=== PATIENT | male | born 1940 | race American Indian/Alaskan Native ===

== ENCOUNTER 2018-10-08 20:01 | Inpatient (IN) | payer MEDICARE ==
--- NOTE | 2018-10-08 20:21 | Emergency Department Report ---
Chief Complaint: Abdominal Pain Stated Complaint: ABDOMINAL PAIN, DIFFICULTY IN BREATHING Time Seen by Provider: 10/08/18 20:17 - HPI History of Present Illness: co abd pain no n/v/d bm this AM was normal daughter reports he seems to have trouble breathing pmh hpld htn dm prev smoker, 5 y ago denies copd/prk/cva/acs psh none rx does not know meds mse MSE screening note: Focused history and physical exam performed. Due to findings the following was ordered: ED Disposition for MSE Condition: Stable
[2018-10-08] MEDS ORDERED: MORPHINE IV ONE (20:59)
[2018-10-08] MEDS ORDERED: NACL 0.9% 250ML 250 ML IV ONE (20:59)
[2018-10-08] MEDS ORDERED: NACL 0.9% 500 ML 500 ML IV ONE (20:59)
[2018-10-08 21:03] LABS: Basophils # (Auto) 0.1 K/mm3 (0.0-0.1); Eosinophils # (Auto) 0.1 K/mm3 (0.0-0.4); Eosinophils % (Auto) 0.6 % (0.0-4.3); Hematocrit 37.5 % (35.5-45.6); Hemoglobin 12.5 gm/dl (11.8-15.2); Lymphocytes # (Auto) 1.8 K/mm3 (1.2-5.4); Lymphocytes % (Auto) 17.1 % (13.4-35.0); Mean Corpuscular HGB Conc 33 % (32-34); Mean Corpuscular Volume 92 fl (84-94); Monocytes # (Auto) 0.8 K/mm3 (0.0-0.8); Monocytes % (Auto) 7.2 % (0.0-7.3); Platelet Count 230 K/mm3 (140-440); Red Blood Count 4.06 M/mm3 (3.65-5.03); Red Cell Distribution Width 14.4 % (13.2-15.2)
[2018-10-08 21:04] LABS: Basophils % (Auto) 0.5 % (0.0-1.8)
--- NOTE | 2018-10-08 21:06 | Emergency Department Report ---
ED Abdominal Pain HPI - General Chief Complaint: Abdominal Pain Stated Complaint: ABDOMINAL PAIN, DIFFICULTY IN BREATHING Time Seen by Provider: 10/08/18 20:17 Source: patient Mode of arrival: Ambulatory Limitations: No Limitations - History of Present Illness Initial Comments: 78-year-old male with history of hypertension, diabetes, COPD, CHF presents to ED with complaint of abdominal discomfort since this morning. Patient denies nausea, vomiting, diarrhea, constipation, fever. Patient has a history of alcoholism, reports intermittently drinks 10-12 beers per day, only had 2-4 today. Patient denies chest pain, shortness of breath, however daughter states patient seems to be having trouble breathing. MD Complaint: abdominal pain -: This morning Location: diffuse Radiation: none Migration to: no migration Severity: moderate Quality: other (unable to characterize) Consistency: constant Improves With: nothing Worsens With: nothing Associated Symptoms: denies: nausea, vomiting, diarrhea, fever, constipation - Related Data Home Medications Medication Instructions Recorded Confirmed Last Taken Pravastatin Sodium [Pravastatin] 10 mg PO QHS 03/29/15 05/01/18 04/29/18 21:00 Previous Rx's Medication Instructions Recorded Last Taken Type ALBUTEROL NEB's [Proventil 0.083% 2.5 mg IH Q4HRT PRN #30 nebu 05/08/18 Unknown Rx NEBS] Acetaminophen [Acetaminophen TAB] 650 mg PO Q4H PRN #20 tablet 05/08/18 Unknown Rx Amlodipine Besylate/Benazepril 1 each PO QDAY #30 05/08/18 04/30/18 08:00 Rx [Lotrel 5-10 mg] Benzonatate [Tessalon Perles] 100 mg PO Q8HR PRN #30 capsule 05/08/18 Unknown Rx Famotidine [Pepcid] 20 mg PO BID #60 tablet 05/08/18 Unknown Rx Furosemide [Lasix TAB] 20 mg PO 0600,1800 #60 tablet 05/08/18 Unknown Rx HYDROcodone/APAP 5-325 [[place] 1 each PO Q6HR PRN #10 tablet 05/08/18 Unknown Rx 5-325 mg TAB] Ipratropium/Albuterol Sulfate 1 ampul IH TIDRT PRN #15 ampul.neb 05/08/18 Unknown Rx [DUONEB *Not for PRN Use*] Metoprolol Xl [Metoprolol 25 mg PO QDAY #30 tablet 05/08/18 Unknown Rx SUCCINATE ER TAB] guaiFENesin ER [Mucinex ER] 600 mg PO BID PRN #30 tablet 05/08/18 Unknown Rx levoFLOXacin [Levaquin] 750 mg PO QDAY #5 tablet 05/08/18 Unknown Rx methylPREDNISolone [Medrol Dose 1 dose PO DAILY #1 pack 05/08/18 Unknown Rx Odin] Allergies Allergy/AdvReac Type Severity Reaction Status Date / Time No Known Allergies Allergy Verified 03/30/15 02:20 ED Review of Systems ROS: Stated complaint: ABDOMINAL PAIN, DIFFICULTY IN BREATHING Other details as noted in HPI Comment: All other systems reviewed and negative Constitutional: denies: chills, fever Respiratory: denies: cough, shortness of breath Cardiovascular: denies: chest pain, palpitations Gastrointestinal: abdominal pain. denies: nausea, vomiting, diarrhea, const ipation ED Past Medical Hx - Past Medical History Previous Medical History?: Yes Hx Hypertension: Yes Hx Diabetes: Yes Hx HIV: No Additional medical history: HIGH CHOLESTEROL - Surgical History Past Surgical History?: No - Social History Smoking Status: Former Smoker Substance Use Type: Alcohol - Medications Home Medications: Home Medications Medication Instructions Recorded Confirmed Last Taken Type Pravastatin Sodium [Pravastatin] 10 mg PO QHS 03/29/15 05/01/18 04/29/18 21:00 History ALBUTEROL NEB's [Proventil 0.083% 2.5 mg IH Q4HRT PRN #30 nebu 05/08/18 Unknown Rx NEBS] Acetaminophen [Acetaminophen TAB] 650 mg PO Q4H PRN #20 tablet 05/08/18 Unknown Rx Amlodipine Besylate/Benazepril 1 each PO QDAY #30 05/08/18 05/01/18 04/30/18 08:00 Rx [Lotrel 5-10 mg] Benzonatate [Tessalon Perles] 100 mg PO Q8HR PRN #30 capsule 05/08/18 Unknown Rx Famotidine [Pepcid] 20 mg PO BID #60 tablet 05/08/18 Unknown Rx Furosemide [Lasix TAB] 20 mg PO 0600,1800 #60 tablet 05/08/18 Unknown Rx HYDROcodone/APAP 5-325 [[place] 1 each PO Q6HR PRN #10 tablet 05/08/18 Unknown Rx 5-325 mg TAB] Ipratropium/Albuterol Sulfate 1 ampul IH TIDRT PRN #15 ampul.neb 05/08/18 Unknown Rx [DUONEB *Not for PRN Use*] Metoprolol Xl [Metoprolol 25 mg PO QDAY #30 tablet 05/08/18 Unknown Rx SUCCINATE ER TAB] guaiFENesin ER [Mucinex ER] 600 mg PO BID PRN #30 tablet 05/08/18 Unknown Rx levoFLOXacin [Levaquin] 750 mg PO QDAY #5 tablet 05/08/18 Unknown Rx methylPREDNISolone [Medrol Dose 1 dose PO DAILY #1 pack 05/08/18 Unknown Rx Od[place]] ED Physical Exam - General Limitations: No Limitations General appearance: alert, in no apparent distress ED Course Vital Signs 10/08/18 10/08/18 10/08/18 20:17 21:16 21:46 Temperature 97.7 F Pulse Rate 148 H 147 H 146 H Respiratory 24 35 H Rate Blood Pressure 155/96 139/94 Blood Pressure 137/94 [Right] O2 Sat by Pulse 90 95 Oximetry 10/08/18 10/09/18 10/09/18 21:52 00:29 00:30 Temperature Pulse Rate 105 H 145 H 145 H Respiratory 21 Rate Blood Pressure 142/94 Blood Pressure 120/57 142/94 [Right] O2 Sat by Pulse 95 Oximetry 10/09/18 10/09/18 10/09/18 01:43 01:45 01:59 Temperature Pulse Rate 147 H 96 H 94 H Respiratory 15 15 Rate Blood Pressure 117/78 Blood Pressure 117/78 117/78 [Right] O2 Sat by Pulse 96 95 Oximetry 10/09/18 02:14 Temperature Pulse Rate 90 Respiratory 19 Rate Blood Pressure Blood Pressure 97/66 [Right] O2 Sat by Pulse 93 Oximetry ED Medical Decision Making - Lab Data Result diagrams: 10/09/18 00:54 10/08/18 20:40 - EKG Data -: EKG Interpreted by Me EKG shows normal: QRS complexes, ST-T waves Rate: tachycardia (rate 148) - EKG Data Interpretation: other (atrial flutter) - Radiology Data Radiology results: report reviewed, image reviewed - Medical Decision Making 78 yo M presents w/ abdominal discomfort, found to have small bilateral PEs, Aflutter/ Afib with RVR, and CHF exacerbation w/ bilateral pleural effusions. Atrial flutter initially improved with diltiazem, w/ rate going from 140s to 110s. Cardizem drip was initiated, however, rate increased again while on drip. Another bolus of cardizem was given, HR improved to the 80s. Pt placed on heparin drip for Afib and PE. Lasix given due to pulmonary edema and effusions. Pt with normal O2 sats on 2L, initially 90% RA. CT was negative for any intraabdominal pathology. Pt admitted to hospitalist for further management. - Differential Diagnosis bowel obstruction, PE, pulm edema Critical Care Time: Yes Critical care time in (mins) excluding proc time.: 45 Critical care attestation.: If time is entered above; I have spent that time in minutes in the direct care of this critically ill patient, excluding procedure time. Critical Care Time: 45 minutes ED Disposition Clinical Impression: CHF (congestive heart failure), Pulmonary edema, Hypoxia, Atrial flutter, Pleural effusion, bilateral, Pulmonary embolism Disposition: -09 OP ADMIT IP TO THIS HOSP Is pt being admited?: Yes Condition: Stable Instructions: Pulmonary Edema (ED) Referrals: HAJA DOMINGUEZ MD [Referring] - 3-5 Days
[2018-10-08] MEDS ORDERED: CARDIZEM IV ONE (21:16)
[2018-10-08 21:17] LABS: Alanine Aminotransferase 43 units/L (7-56); Albumin 4.2 g/dL (3.9-5); BUN/Creatinine Ratio 14; Blood Urea Nitrogen 10 mg/dL (9-20); Calcium 9.3 mg/dL (8.4-10.2); Hemolysis Index 8
--- NOTE | 2018-10-08 21:30 | XRay Report ---
PROCEDURE: XR CHEST ROUTINE 2V TECHNIQUE: PA and lateral chest radiographs were obtained. HISTORY: Chest Pain COMPARISONS: None. FINDINGS: Frontal and lateral views of the chest were acquired and compared to the prior examination of May 03. There is cardiomegaly. There is mild pulmonary edema which is worse. There is some left lower lobe pu lmonary consolidation best seen on lateral view, suspicious for pneumonia. IMPRESSION: Mild pulmonary edema, worse Left lower lobe infiltrate, new, suspicious for pneumonia This document is electronically signed by Ender Nielsen MD., Oct 08 2018 09:27:58 PM ET
[2018-10-08 21:43] LABS: INR 1.05 (0.87-1.13)
[2018-10-08 21:44] LABS: Partial Thromboplastin Time 34.6 Sec. (24.2-36.6)
[2018-10-08] MEDS ORDERED: NACL 0.9% 1000 ML 1,000 ML ONE (21:56)
[2018-10-08] MEDS ORDERED: LASIX IV ONE (21:59)
[2018-10-08] MEDS ORDERED: CARDIZEM 100 MG in D5W 80 ML IV SCH (23:00)
--- NOTE | 2018-10-09 00:39 | Cat Scan Report ---
PROCEDURE: CT ANGIO CHEST TECHNIQUE: Computerized tomographic angiography of the chest was performed after the IV injection of iodinated nonionic contrast including image processing. The image data was postprocessed using 2-di mensional multiplanar reformatted (MPR) and 3-dimensional (MIP and/or volume rendered) techniques. Au tomated exposure control, adjustment of mA and/or kV according to patient size, or iterative reconstr uction dose optimization techniques were utilized. HISTORY: elevated d-dimer, sob FINDINGS: Contrast-enhanced CT angiography of the chest was performed following intravenous administr ation 100 cc on the These images demonstrate pulmonary embolism within a branch of the left upper lobe pulmonary artery, sagittal image 91, coronal image 120. Second left upper lobe pulmonary embolism is seen , sagittal im age 92, coronal image 144. Left lower lobe nonocclusive pulmonary embolism is present on sagittal image 81. There is a right lower lobe nonocclusive pulmonary embolism, sagittal image 216, coronal image 131. There is no aortic dissection. There is coronary artery calcification. There are large bilateral pleural effusions. There is no laisha cardial effusion. In the upper abdomen, there is fatty infiltration of the liver. IMPRESSION: Small bilateral pulmonary emboli. This document is electronically signed by Ender Nielsen MD., Oct 09 2018 12:37:15 AM ET
[2018-10-09] MEDS ORDERED: HEPARIN 10,000 UNITS/10 ML IV ONE (00:45)
--- NOTE | 2018-10-09 00:58 | Cat Scan Report ---
PROCEDURE: CT ABDOMEN PELVIS W CON TECHNIQUE: Computerized axial tomography of the abdomen and pelvis was performed after the IV inject ion of iodinated nonionic contrast. HISTORY: abd pain COMPARISONS: None . FINDINGS: Lower Lung oakes: Moderate-sized bilateral pleural effusions are present. There is minimal patchy d ensity adjacent to the effusion suggesting a small amount of atelectasis. Upper Abdomen: The liver, gallbladder, adrenal glands, the pancreas and spleen are unremarkable. Kidneys, Ureters and Urinary bladder: Small renal cortical cysts visualized left kidney. The kidneys , ureters and urinary bladder otherwise are unremarkable. Retroperitoneum: Atherosclerotic changes are seen in the abdominal aorta. No aneurysm is visualized. Nonspecific subcentimeter lymph nodes are seen in the retroperitoneum. No pathologically enlarged ly mph nodes are identified. Bowel: There is mild diverticulosis descending colon and sigmoid colon without evidence of diverticu litis. Normal-appearing appendix is seen in the right lower quadrant. No evidence of bowel obstructio n. No ascites or free intraperitoneal gas is visualized Reproductive organs: There is mild nonspecific prostate enlargement. Other: No acute bone abnormalities are identified. IMPRESSION: Mild colonic diverticulosis without evidence of diverticulitis. Mild nonspecific prostate enlargement. Moderate sized bilateral pleural effusions are present. Minimal atelectasis suspected in the lung bas es. This document is electronically signed by Blair Leigh MD., Oct 09 2018 12:56:20 AM ET
[2018-10-09 01:06] LABS: Bilirubin,Urine NEG (Negative); Blood,Urine NEG (Negative); Color,Urine Straw (Yellow); Protein,Urine <15 mg/dL mg/dL (Negative); Urobilinogen,Urine < 2.0 mg/dL (<2.0); WBC,Urine < 1.0 /HPF (0.0-6.0)
[2018-10-09 01:08] LABS: Hematocrit 38.2 % (35.5-45.6); Hemoglobin 12.5 gm/dl (11.8-15.2)
[2018-10-09] MEDS ORDERED: CARDIZEM IV ONE (01:10)
[2018-10-09 01:19] LABS: INR 1.09 (0.87-1.13)
[2018-10-09 01:20] LABS: Partial Thromboplastin Time 32.8 Sec. (24.2-36.6)
[2018-10-09] MEDS ORDERED: ZOFRAN IV PRN (01:46)
[2018-10-09] MEDS ORDERED: SODIUM CHLORIDE FLUSH SYRINGE 10 ML IV PRN (01:46)
[2018-10-09] MEDS: HEPARIN/ 0.45% NACL-25,000 UNIT/500 ML 25,000 UNIT/500 ML BAG IV SCH ×2 (01:52→18:04)
--- NOTE | 2018-10-09 01:52 | History and Physical Report ---
History of Present Illness Date of examination: 10/09/18 History of present illness: 78-year-old man admitted a history of COPD, CHF, hypertension, hyperlipidemia, GERD, diabetes comes to emergency room with complaints of abdominal pain. He stated that his belly has been hurting all over, describes a sharp pain, const ant, intensity 5/10, no radiation, cannot identify exacerbating or relieving factors. Admits to nausea and vomiting, shortness of breath Review of systems Constitutional: no weight loss, chills, fever Ears, eyes, nose, mouth and throat: no nasal congestion, no nasal discharge, no sinus pressure, no vision change, no red eye. Neck: No neck pain or rigidity. Cardiovascular: no palpitations, chest pain Respiratory: no cough Gastrointestinal: no hematochezia Genitourinary : no frequency , no hematuria Musculoskeletal: no joint swelling or muscle ache Integumentary: no rash, no pruritis Neurological: no parathesias, no focal weakness Endocrine: no cold or heat intolerance, no polyuria or polydipsia Hematologic/Lymphatic: no easy bruising, no easy bleeding, no gland swelling Allergic/Immunologic: no urticaria, no angioedema. PAST MEDICAL HISTORY:COPD, CHF, hypertension, hyperlipidemia, GERD PAST SURGICAL HISTORY: None SOCIAL HISTORY: Drinks 10 beers a day, no drugs, tobacco FAMILY HISTORY: Hypertension Medications and Allergies Allergies Allergy/AdvReac Type Severity Reaction Status Date / Time No Known Allergies Allergy Verified 03/30/15 02:20 Home Medications Medication Instructions Recorded Confirmed Last Taken Type Pravastatin Sodium [Pravastatin] 10 mg PO QHS 03/29/15 10/09/18 10/08/18 History 10 mg Amlodipine Besylate/Benazepril 1 each PO QDAY #30 05/08/18 10/09/18 10/08/18 Rx [Lotrel 5-10 mg] Metoprolol Xl [Metoprolol 25 mg PO QDAY #30 tablet 05/08/18 10/09/18 10/08/18 Rx SUCCINATE ER TAB] 25 mg Aspirin [Aspirin BABY CHEW TAB] 81 mg PO QDAY 10/09/18 10/09/18 Unknown History Glimepiride [Amaryl] 4 mg PO DAILY 10/09/18 10/09/18 Unknown History Omeprazole 20 mg PO QDAY 10/09/18 10/09/18 Unknown History Tiotropium [place] [Spiriva 1.25 mcg INHALATION DAILY 10/09/18 10/09/18 Unknown History Respimat] metFORMIN 500 mg PO BID 10/09/18 10/09/18 Unknown History Active Meds: Active Medications Acetaminophen (Tylenol) 650 mg PO Q4H PRN PRN Reason: Pain MILD(1-3)/Fever >100.5/DUCKWORTH Diltiazem HCl 100 mg/ Dextrose 100 mls @ 5 mls/hr IV TITR DEIDRA; Protocol Last Titration: 10/09/18 01:49 Dose: 10 mg/hr, 10 mls/hr Documented by: Heparin Sodium/Sodium Chloride (Heparin/ 0.45% Nacl-25,000 Unit/500 Ml) 25,000 unit in 500 mls @ 30 mls/hr IV TITR DEIDRA; Protocol Ondansetron HCl (Zofran) 4 mg IV Q8H PRN PRN Reason: Nausea And Vomiting Sodium Chloride (Sodium Chloride Flush Syringe 10 Ml) 10 ml IV BID DEIDRA Sodium Chloride (Sodium Chloride Flush Syringe 10 Ml) 10 ml IV PRN PRN PRN Reason: LINE FLUSH Exam - Physical Exam Narrative exam: General Apperance: The patient lying in bed, breathing comfortable HEENT: Normocephalic, atraumatic. Pupils equally round and reactive to light, EOMI, no sclericterus or JVD or thyromegaly or nodule. , no carotid bruit, mucous membranes moist, no exudate or erythema Heart: S1-S2, regular is rhythm Lungs: Clear to auscultation bilaterally, breathing comfortable Abdomen: Positive bowel sounds, soft, nontender, nondistended, no organomegaly Extremities: No edema cyanosis clubbing Skin: no rash, nodule, warm and dry Neuro: cranial nerves 2-12 intact, speech is fluent, motor/sensory intact - Constitutional Vitals: Temp Pulse Resp BP Pulse Ox 97.7 F 96 H 15 117/78 96 10/08/18 20:17 10/09/18 01:45 10/09/18 01:45 10/09/18 01:45 10/09/18 01:45 Results - Labs CBC & Chem 7: 10/16/18 04:51 10/16/18 04:51 Labs: Abnormal lab results 10/08/18 10/08/18 10/08/18 Range/Units 20:40 20:40 21:01 Seg Neutrophils % 74.6 H (40.0-70.0) % Seg Neutrophils # 7.9 H (1.8-7.7) K/mm3 D-Dimer 532.59 H (0-234) ng/mlDDU Sodium 132 L (137-145) mmol/L Chloride 96.5 L (98-107) mmol/L Creatinine 0.7 L (0.8-1.5) mg/dL Glucose 109 H (75-100) mg/dL AST 45 H (5-40) units/L NT-Pro-B Natriuret Pep (0-900) pg/mL 10/08/18 Range/Units 21:01 Seg Neutrophils % (40.0-70.0) % Seg Neutrophils # (1.8-7.7) K/mm3 D-Dimer (0-234) ng/mlDDU Sodium (137-145) mmol/L Chloride (98-107) mmol/L Creatinine (0.8-1.5) mg/dL Glucose (75-100) mg/dL AST (5-40) units/L NT-Pro-B Natriuret Pep 1527 H (0-900) pg/mL - Imaging and Cardiology EKG: image reviewed CT scan - abdomen: report reviewed CT scan - chest: report reviewed CT scan - pelvis: report reviewed Assessment and Plan Assessment A. fib with RVR Bilateral pulmonary emboli CHF, stable Alcohol abuse Abdominal pain, nonspecific COPD Hypertension Hyperlipidemia GERD Plan Admit to medicine Continue Cardizem, heparin drip Check cardiac enzymes, TSH, serial hemoglobin Consult cardiology, critical care Start CIWA protocol with IV ativan
[2018-10-09] MEDS ORDERED: D50W (25GM) Syringe IV PRN (04:38)
[2018-10-09] MEDS ORDERED: HumaLOG SUB-Q SCH (07:30)
[2018-10-09 08:24] LABS: Creatine Kinase MB 10.1 ng/mL (0.0-4.0)
--- NOTE | 2018-10-09 08:49 | Consultation ---
History of Present Illness Consult date: 10/09/18 Consult reason: other (Atrial flutter) History of present illness: Patient is presenting for abdominal pain. On CT abdomen he was incidentally di scovered to have bilateral pulmonary emboli. His presenting rhythm was atrial flutter that has resolved eventually. Patient denies CP, pleuritic pain or shortness of breath. He is known type II DM, hypertension and hyperlipidemia. He has chronic abdominal pain. He was in the hospital back in Apr 2018 for pneumonia per his daughter. Past History Past Medical History: COPD, heart failure, hypertension, hyperlipidemia Past Surgical History: No surgical history Social history: no significant social history Family history: diabetes, hypertension Medications and Allergies Allergies Allergy/AdvReac Type Severity Reaction Status Date / Time No Known Allergies Allergy Verified 03/30/15 02:20 Home Medications Medication Instructions Recorded Confirmed Last Taken Type Pravastatin Sodium [Pravastatin] 10 mg PO QHS 03/29/15 10/09/18 10/08/18 History 10 mg Amlodipine Besylate/Benazepril 1 each PO QDAY #30 05/08/18 10/09/18 10/08/18 Rx [Lotrel 5-10 mg] Metoprolol Xl [Metoprolol 25 mg PO QDAY #30 tablet 05/08/18 10/09/18 10/08/18 Rx SUCCINATE ER TAB] 25 mg Aspirin [Aspirin BABY CHEW TAB] mg PO QDAY 10/09/18 Unknown History Active Meds: Active Medications Acetaminophen (Tylenol) 650 mg PO Q4H PRN PRN Reason: Pain MILD(1-3)/Fever >100.5/DUCKWORTH Dextrose (D50w (25gm) Syringe) 50 ml IV PRN PRN PRN Reason: Hypoglycemia Diltiazem HCl (Cardizem) 60 mg PO Q6HR DEIDRA Heparin Sodium/Sodium Chloride (Heparin/ 0.45% Nacl-25,000 Unit/500 Ml) 25,000 unit in 500 mls @ 30 mls/hr IV TITR DEIDRA; Protocol Last Titration: 10/09/18 08:00 Dose: 1,500 units/hr, 30 mls/hr Documented by: Diltiazem HCl (Cardizem/D5w 100mg/100ml) 100 mg in 100 mls @ 5 mls/hr IV TITR DEIDRA; Protocol Insulin Human Lispro (Humalog) 0 unit SUB-Q ACHS DEIDRA; Protocol Last Admin: 10/09/18 08:22 Dose: Not Given Documented by: Lorazepam (Ativan) 1 mg IV Q1HR PRN PRN Reason: CIWA-Ar 8-15 Ondansetron HCl (Zofran) 4 mg IV Q8H PRN PRN Reason: Nausea And Vomiting Sodium Chloride (Sodium Chloride Flush Syringe 10 Ml) 10 ml IV BID DEIDRA Sodium Chloride (Sodium Chloride Flush Syringe 10 Ml) 10 ml IV PRN PRN PRN Reason: LINE FLUSH Review of Systems All systems: negative Physical Examination Vital Signs Temp Pulse Resp BP Pulse Ox 97.7 F 148 H 24 155/96 90 10/08/18 20:17 10/08/18 20:17 10/08/18 20:17 10/08/18 20:17 10/08/18 20:17 General appearance: no acute distress HEENT: Positive: PERRL Neck: Positive: neck supple Cardiac: Positive: Reg Rate and Rhythm Lungs: Positive: Normal Exam Neuro: Positive: Grossly Intact Abdomen: Positive: Soft Extremities: Present: normal Results 10/09/18 00:54 10/08/18 20:40 Cardiac Enzymes 10/08/18 10/09/18 10/09/18 Range/Units 20:40 02:12 07:47 AST 45 H (5-40) units/L CK-MB (CK-2) 12.0 H 10.1 H (0.0-4.0) ng/mL Coagulation 10/08/18 10/09/18 Range/Units 21:01 00:54 PT 14.4 14.8 (12.2-14.9) Sec. INR 1.05 1.09 (0.87-1.13) APTT 34.6 32.8 (24.2-36.6) Sec. CBC 10/08/18 10/09/18 Range/Units 20:40 00:54 WBC 10.6 (4.5-11.0) K/mm3 RBC 4.06 (3.65-5.03) M/mm3 Hgb 12.5 12.5 (11.8-15.2) gm/dl Hct 37.5 38.2 (35.5-45.6) % Plt Count 230 230 (140-440) K/mm3 Lymph # 1.8 (1.2-5.4) K/mm3 [place] # 0.8 (0.0-0.8) K/mm3 Eos # 0.1 (0.0-0.4) K/mm3 Baso # 0.1 (0.0-0.1) K/mm3 Comprehensive Metabolic Panel 10/08/18 Range/Units 20:40 Sodium 132 L (137-145) mmol/L Potassium 4.9 (3.6-5.0) mmol/L Chloride 96.5 L (98-107) mmol/L Carbon Dioxide 22 (22-30) mmol/L BUN 10 (9-20) mg/dL Creatinine 0.7 L (0.8-1.5) mg/dL Glucose 109 H (75-100) mg/dL Calcium 9.3 (8.4-10.2) mg/dL AST 45 H (5-40) units/L ALT 43 (7-56) units/L Alkaline Phosphatase 58 (35-129) units/L Total Protein 7.2 (6.3-8.2) g/dL Albumin 4.2 (3.9-5) g/dL - EKG Interpretation EKG: sinus rhythm EKG interpretations - Telemetry EKG Rhythm: Sinus Rhythm Assessment and Plan Paroxysmal atrial flutter Spontaneously converted into SR Bilateral pulmonary emboli Noted incidentally on CT Cardiomyopathy, LVEF 45-50% 04/2018 MPI 04/2018 - small fixed inferior wall defect Chronic diastolic heart failure Compensated Chronic hyponatremia Stable Chronic abdominal pain COPD Recommendations: Switch diltiazem to po Anticoagulation for bilateral PE Eventually may switch to po eliquis therapy No further cardiac work-up is needed
[2018-10-09] MEDS ORDERED: CARDIZEM/D5W 100MG/100ML 100 MG/100 ML BAG IV SCH (09:00)
[2018-10-09] MEDS: CARDIZEM PO SCH ×4 (09:19→23:04)
[2018-10-09] MEDS: SODIUM CHLORIDE FLUSH SYRINGE 10 ML IV SCH ×2 (09:20→23:07)
--- NOTE | 2018-10-09 09:58 | Vascular Lab Report ---
PROCEDURE: VL VENOUS DUPLEX LE BILAT TECHNIQUE: Grayscale, color flow and spectral waveform images were obtained of bilateral lower extre mities. HISTORY: LE edema COMPARISON: None FINDINGS: There is no deep venous thrombosis seen in the left or right lower extremity. Flow is demonstrated by color flow and spectral waveform imaging. There is appropriate wall compression and augmentation. There is no superficial venous thrombus seen. IMPRESSION: There is no evidence for DVT in either right or left lower extremity. This document is electronically signed by Britta Collado MD., Oct 09 2018 09:56:41 AM ET
--- NOTE | 2018-10-09 10:39 | Progress Note ---
Assessment and Plan Assessment and plan: 78-year-old man presented to the hospital of abdominal pain and trouble breathing -Patient has a history of alcoholism drinks 10-12 beers a day PMH; hypertension, diabetes, hyperlipidemia, alcohol abuse, former smoker Atrial fibrillation with RVR and hypercoagulable Chronic systolic CHF, ef 45 -Cardiology consult, echo, cont dilt drip, check tsh and mg Bilateral pulmonary emboli Continue heparin drip, obtain venous Dopplers of lower extremities Abdominal pain is nonspecific History of GERD, PPI CT abdomen and pelvis, shows no acute findings Alcohol dependence and withdrawal CIWA protocol, IV fluids, Folate and thiamine Acute hypoxic respiratory failure cont oxygen supplementation COPD, chronic and stable CCT 33 mins History Interval history: Review of systems Constitutional: No fevers, no joint pains CVS: No chest pain, no orthopnea, no pedal edema GI: Abdominal pain is improved, no diarrhea, no vomiting Respiratory: no wheezing, no coughing Hospitalist Physical - Physical exam Narrative exam: General.: no distress, nontoxic HEENT: Moist mucous membranes, extraocular muscles intact, no lymphadenopathy Neck: supple Cardiac: S1-S2 heard Lungs: clear to auscultation bilaterally Abdomen: soft , nontender, nondistended, bowel sounds positive Extremities: no edema clubbing or cyanosis Skin: no rash or lesions Neurologic: no gross focal deficits Psych: calm, and cooperative - Constitutional Vitals: Temp Pulse Resp BP Pulse Ox 98.0 F 100 H 27 H 128/75 90 10/09/18 08:00 10/09/18 09:19 10/09/18 09:01 10/09/18 09:19 10/09/18 09:01 Results - Labs CBC & Chem 7: 10/10/18 03:01 10/10/18 03:01 Labs: Laboratory Last Values WBC 10.6 K/mm3 (4.5-11.0) 10/08/18 20:40 RBC 4.06 M/mm3 (3.65-5.03) 10/08/18 20:40 Hgb 12.5 gm/dl (11.8-15.2) 10/09/18 00:54 Hct 38.2 % (35.5-45.6) 10/09/18 00:54 MCV 92 fl (84-94) 10/08/18 20:40 MCH 31 pg (28-32) 10/08/18 20:40 MCHC 33 % (32-34) 10/08/18 20:40 RDW 14.4 % (13.2-15.2) 10/08/18 20:40 Plt Count 230 K/mm3 (140-440) 10/09/18 00:54 Lymph % (Auto) 17.1 % (13.4-35.0) 10/08/18 20:40 [place] % (Auto) 7.2 % (0.0-7.3) 10/08/18 20:40 Eos % (Auto) 0.6 % (0.0-4.3) 10/08/18 20:40 Baso % (Auto) 0.5 % (0.0-1.8) 10/08/18 20:40 Lymph # 1.8 K/mm3 (1.2-5.4) 10/08/18 20:40 [place] # 0.8 K/mm3 (0.0-0.8) 10/08/18 20:40 Eos # 0.1 K/mm3 (0.0-0.4) 10/08/18 20:40 Baso # 0.1 K/mm3 (0.0-0.1) 10/08/18 20:40 Seg Neutrophils % 74.6 % (40.0-70.0) H 10/08/18 20:40 Seg Neutrophils # 7.9 K/mm3 (1.8-7.7) H 10/08/18 20:40 PT 14.8 Sec. (12.2-14.9) 10/09/18 00:54 INR 1.09 (0.87-1.13) 10/09/18 00:54 APTT 32.8 Sec. (24.2-36.6) 10/09/18 00:54 532.59 ng/mlDDU (0-234) H 10/08/18 21:01 Heparin Anti-Xa Level 0.63 U.I./ml (0.3-0.7) 10/09/18 07:47 Sodium 132 mmol/L (137-145) L 10/08/18 20:40 Potassium 4.9 mmol/L (3.6-5.0) 10/08/18 20:40 Chloride 96.5 mmol/L (98-107) L 10/08/18 20:40 Carbon Dioxide 22 mmol/L (22-30) 10/08/18 20:40 18 mmol/L 10/08/18 20:40 BUN 10 mg/dL (9-20) 10/08/18 20:40 0.7 mg/dL (0.8-1.5) L 10/08/18 20:40 Estimated GFR > 60 ml/min 10/08/18 20:40 14 % 10/08/18 20:40 Glucose 109 mg/dL (75-100) H 10/08/18 20:40 POC Glucose 130 (70-105) H 10/09/18 08:02 Calcium 9.3 mg/dL (8.4-10.2) 10/08/18 20:40 0.50 mg/dL (0.1-1.2) 10/08/18 20:40 AST 45 units/L (5-40) H 10/08/18 20:40 ALT 43 units/L (7-56) 10/08/18 20:40 58 units/L (35-129) 10/08/18 20:40 541 units/L (55-170) H 10/09/18 07:47 CK-MB (CK-2) 10.1 ng/mL (0.0-4.0) H 10/09/18 07:47 CK-MB (CK-2) Rel Index 1.8 (0-4) 10/09/18 07:47 0.010 ng/mL (0.00-0.029) 10/09/18 07:47 NT-Pro-B Natriuret Pep 1527 pg/mL (0-900) H 10/08/18 21:01 7.2 g/dL (6.3-8.2) 10/08/18 20:40 4.2 g/dL (3.9-5) 10/08/18 20:40 1.4 % 10/08/18 20:40 17 units/L (13-60) 10/08/18 20:40 Straw (Yellow) 10/09/18 00:37 Clear (Clear) 10/09/18 00:37 7.0 (5.0-7.0) 10/09/18 00:37 Ur Specific [place] 1.021 (1.003-1.030) 10/09/18 00:37 <15 mg/dl mg/dL (Negative) 10/09/18 00:37 Neg mg/dL (Negative) 10/09/18 00:37 Neg mg/dL (Negative) 10/09/18 00:37 Neg (Negative) 10/09/18 00:37 Neg (Negative) 10/09/18 00:37 Neg (Negative) 10/09/18 00:37 < 2.0 mg/dL (<2.0) 10/09/18 00:37 Ur Leukocyte Esterase Neg (Negative) 10/09/18 00:37 < 1.0 /HPF (0.0-6.0) 10/09/18 00:37 1.0 /HPF (0.0-6.0) 10/09/18 00:37 Active Medications - Current Medications Current Medications: Generic Name Dose Route Start Last Admin Trade Name Freq PRN Reason Stop Dose Admin Acetaminophen 650 mg 10/09/18 01:46 Tylenol PO Q4H PRN Pain MILD(1-3)/Fever >100.5/[place] Dextrose 50 ml 10/09/18 04:38 D50w (25gm) Syringe IV PRN PRN Hypoglycemia Diltiazem HCl 60 mg 10/09/18 09:00 10/09/18 09:19 Cardizem PO 60 mg Q6HR DEIRDA Administration Folic Acid 1 mg 10/09/18 11:00 Folvite PO QDAY DEIDRA Heparin Sodium/Sodium Chloride 25,000 unit in 500 mls @ 30 mls/hr 10/09/18 01:00 10/09/18 08:00 Heparin/ 0.45% Nacl-25,000 Unit/500 Ml IV 1,500 units/hr TITR DEIDRA 30 mls/hr Titration Protocol 1,500 UNITS/HR Diltiazem HCl 100 mg in 100 mls @ 5 mls/hr 10/09/18 09:00 Cardizem/D5w 100mg/100ml IV TITR DEID[facility] Protocol 5 MG/HR Lorazepam 1 mg 10/09/18 02:16 Ativan IV Q1HR PRN CIWA-Ar 8-15 Ondansetron HCl 4 mg 10/09/18 01:46 Zofran IV Q8H PRN Nausea And Vomiting Pantoprazole Sodium 40 mg 10/09/18 10:32 Protonix PO 10/09/18 10:33 QDAY ONE Sodium Chloride 10 ml 10/09/18 10:00 10/09/18 09:20 Sodium Chloride Flush Syringe 10 Ml IV 10 ml BID DEIDRA Administration Sodium Chloride 10 ml 10/09/18 01:46 Sodium Chloride Flush Syringe 10 Ml IV PRN PRN LINE FLUSH Thiamine HCl 100 mg 10/09/18 11:00 Vitamin B-1 PO QDAY [facility]
--- NOTE | 2018-10-09 11:03 | Consultation ---
History of Present Illness Consult date: 10/09/18 Requesting physician: JIL PERERA Reason for consult: pulmonary embolism, other (Atrial Fibrillation with RVR) History of present illness: PCCM CONSULT NOTE (Full dictation # [id number]) Please see dictated notes for full details Medications and Allergies Allergies Allergy/AdvReac Type Severity Reaction Status Date / Time No Known Allergies Allergy Verified 03/30/15 02:20 Home Medications Medication Instructions Recorded Confirmed Last Taken Type Pravastatin Sodium [Pravastatin] 10 mg PO QHS 03/29/15 10/09/18 10/08/18 History 10 mg Amlodipine Besylate/Benazepril 1 each PO QDAY #30 05/08/18 10/09/18 10/08/18 Rx [Lotrel 5-10 mg] Metoprolol Xl [Metoprolol 25 mg PO QDAY #30 tablet 05/08/18 10/09/18 10/08/18 Rx SUCCINATE ER TAB] 25 mg Aspirin [Aspirin BABY CHEW TAB] mg PO QDAY 10/09/18 Unknown History Active Meds: Active Medications Acetaminophen (Tylenol) 650 mg PO Q4H PRN PRN Reason: Pain MILD(1-3)/Fever >100.5/[place] Dextrose (D50w (25gm) Syringe) 50 ml IV PRN PRN PRN Reason: Hypoglycemia Diltiazem HCl (Cardizem) 60 mg PO Q6HR [facility] Last Admin: 10/09/18 09:19 Dose: 60 mg Documented by: Folic Acid (Folvite) 1 mg PO QDAY [facility] Heparin Sodium/Sodium Chloride (Heparin/ 0.45% Nacl-25,000 Unit/500 Ml) 25,000 unit in 500 mls @ 30 mls/hr IV TITR [facility]; Protocol Last Titration: 10/09/18 08:00 Dose: 1,500 units/hr, 30 mls/hr Documented by: Diltiazem HCl (Cardizem/D5w 100mg/100ml) 100 mg in 100 mls @ 5 mls/hr IV TITR [facility]; Protocol Lorazepam (Ativan) 1 mg IV Q1HR PRN PRN Reason: CIWA-Ar 8-15 Ondansetron HCl (Zofran) 4 mg IV Q8H PRN PRN Reason: Nausea And Vomiting Pantoprazole Sodium (Protonix) 40 mg PO QDAY [facility] Sodium Chloride (Sodium Chloride Flush Syringe 10 Ml) 10 ml IV BID [facility] Last Admin: 10/09/18 09:20 Dose: 10 ml Documented by: Sodium Chloride (Sodium Chloride Flush Syringe 10 Ml) 10 ml IV PRN PRN PRN Reason: LINE FLUSH Thiamine HCl (Vitamin B-1) 100 mg PO QDAY [facility] Physical Examination Vital signs: Vital Signs Temp Pulse Resp BP Pulse Ox 97.7 F 148 H 24 155/96 90 10/08/18 20:17 10/08/18 20:17 10/08/18 20:17 10/08/18 20:17 10/08/18 20:17 Results - Laboratory Findings CBC and BMP: 10/09/18 00:54 10/08/18 20:40 PT/INR, D-dimer PT 14.8 Sec. (12.2-14.9) 10/09/18 00:54 INR 1.09 (0.87-1.13) 10/09/18 00:54 532.59 ng/mlDDU (0-234) H 10/08/18 21:01 Abnormal lab findings: Abnormal Labs 10/08/18 10/08/18 10/08/18 20:40 20:40 21:01 Seg Neutrophils % 74.6 H Seg Neutrophils # 7.9 H D-Dimer 532.59 H Sodium 132 L Chloride 96.5 L Creatinine 0.7 L Glucose 109 H POC Glucose AST 45 H Total Creatine Kinase CK-MB (CK-2) NT-Pro-B Natriuret Pep 10/08/18 10/09/18 10/09/18 21:01 02:12 05:24 Seg Neutrophils % Seg Neutrophils # D-Dimer Sodium Chloride Creatinine Glucose POC Glucose 125 H AST Total Creatine Kinase 620 H CK-MB (CK-2) 12.0 H NT-Pro-B Natriuret Pep 1527 H 10/09/18 10/09/18 07:47 08:02 Seg Neutrophils % Seg Neutrophils # D-Dimer Sodium Chloride Creatinine Glucose POC Glucose 130 H AST Total Creatine Kinase 541 H CK-MB (CK-2) 10.1 H NT-Pro-B Natriuret Pep
[2018-10-09] MEDS: PROTONIX PO SCH (12:06)
[2018-10-09] MEDS: FOLVITE PO SCH (12:06)
[2018-10-09] MEDS: VITAMIN B-1 PO SCH (12:07)
[2018-10-09] MEDS ORDERED: PROVENTIL IH PRN (12:37)
[2018-10-09] MEDS ORDERED: NORVASC PO SCH (13:00)
--- NOTE | 2018-10-09 14:27 | Gastroenterology Consultation ---
<VAIBHAV FULTON - Last Filed: 10/09/18 14:44> History of Present Illness - Reason for Consult Consult date: 10/09/18 abdominal pain Requesting physician: JEREMY NICOLAS - History of Present Illness Patient is a 78 y/o male with PMH of COPD, CHF, HTN, HLD, GERD, DM, and alcohol dependence who presented to ED with c/o SOB and abdominal pain. Upon admission, he was found to have small bilateral PEs, Afib with RVR, and CHF exacerbation. Abdominal CT w/o acute GI findings. He is currently in ICU on heparin drip. GI has been consulted for abdominal pain. This afternoon patient was resting in bed w/o acute distress. He reports generalized abd discomfort/pain for the past couple of days (pain is nonspecific; pt unable to give clear description of pain, just states it is uncomfortable). No exacerbating (no correlated with PO intakep; tolerating diet) or relieving factors. Denies fever, CP, wt loss, N/V, jaundice, signs of bleeding, diarrhea, or constipation. No NSAIDs or hx of PUD. No known liver disease but admits to daily heavy alcohol use (10 beers per day on average).Patient is previously known to our service. He was last see in 2012 for c/o abdominal pain (epigastric) and underwent an EGD at that time that showed gastritis. Last colonoscopy 2008 showed angiodysplasia w/o bleeding in sigmoid colon and internal hemorrhoids. Past History Past Medical History: other (as per HPI) Past Surgical History: No surgical history Social history: alcohol abuse, other (former smoker) Family history: diabetes, hypertension Medications and Allergies Allergies Allergy/AdvReac Type Severity Reaction Status Date / Time No Known Allergies Allergy Verified 03/30/15 02:20 Home Medications Medication Instructions Recorded Confirmed Last Taken Type Pravastatin Sodium [Pravastatin] 10 mg PO QHS 03/29/15 10/09/18 10/08/18 History 10 mg Amlodipine Besylate/Benazepril 1 each PO QDAY #30 05/08/18 10/09/18 10/08/18 Rx [Lotrel 5-10 mg] Metoprolol Xl [Metoprolol 25 mg PO QDAY #30 tablet 05/08/18 10/09/18 10/08/18 Rx SUCCINATE ER TAB] 25 mg Aspirin [Aspirin BABY CHEW TAB] 81 mg PO QDAY 10/09/18 10/09/18 Unknown History Glimepiride [Amaryl] 4 mg PO DAILY 10/09/18 10/09/18 Unknown History Omeprazole 20 mg PO QDAY 10/09/18 10/09/18 Unknown History Tiotropium [place] [Spiriva 1.25 mcg INHALATION DAILY 10/09/18 10/09/18 Unknown History Respimat] metFORMIN 500 mg PO BID 10/09/18 10/09/18 Unknown History Active Meds: Active Medications Acetaminophen (Tylenol) 650 mg PO Q4H PRN PRN Reason: Pain MILD(1-3)/Fever >100.5/[place] Albuterol (Proventil) 2.5 mg IH Q6HRT PRN PRN Reason: Shortness Of Breath Amlodipine Besylate (Norvasc) 5 mg PO QDAY [facility] Dextrose (D50w (25gm) Syringe) 50 ml IV PRN PRN PRN Reason: Hypoglycemia Diltiazem HCl (Cardizem) 60 mg PO Q6HR [facility]IDRA Last Admin: 10/09/18 13:26 Dose: 60 mg Documented by: Folic Acid (Folvite) 1 mg PO QDAY [facility] Last Admin: 10/09/18 12:06 Dose: 1 mg Documented by: Heparin Sodium/Sodium Chloride (Heparin/ 0.45% Nacl-25,000 Unit/500 Ml) 25,000 unit in 500 mls @ 30 mls/hr IV TITR DEIDRA; Protocol Last Titration: 10/09/18 08:00 Dose: 1,500 units/hr, 30 mls/hr Documented by: Diltiazem HCl (Cardizem/D5w 100mg/100ml) 100 mg in 100 mls @ 5 mls/hr IV TITR DEIDRA; Protocol Lisinopril (Zestril) 10 mg PO QDAY DEIDRA Lorazepam (Ativan) 1 mg IV Q1HR PRN PRN Reason: CIWA-Ar 8-15 Metoprolol Succinate (Toprol Xl) 25 mg PO QDAY DEIDRA Ondansetron HCl (Zofran) 4 mg IV Q8H PRN PRN Reason: Nausea And Vomiting Pantoprazole Sodium (Protonix) 40 mg PO QDAY [facility] Last Admin: 10/09/18 12:06 Dose: 40 mg Documented by: Sodium Chloride (Sodium Chloride Flush Syringe 10 Ml) 10 ml IV BID [facility] Last Admin: 10/09/18 09:20 Dose: 10 ml Documented by: Sodium Chloride (Sodium Chloride Flush Syringe 10 Ml) 10 ml IV PRN PRN PRN Reason: LINE FLUSH Thiamine HCl (Vitamin B-1) 100 mg PO QDAY [facility] Last Admin: 10/09/18 12:07 Dose: 100 mg Documented by: medications reviewed/updated as required Review of Systems - Review of Systems All systems: negative Respiratory: shortness of breath Gastrointestinal: abdominal pain (generalized) Exam - Constitutional Vital Signs: Temp Pulse Resp BP Pulse Ox 98.1 F 106 H 28 H 152/81 89 10/09/18 12:00 10/09/18 13:26 10/09/18 12:11 10/09/18 13:26 10/09/18 12:11 General appearance: no acute distress - Respiratory Respiratory effort: other (slightly labored with exerction) Respiratory: bilateral: diminished - Cardiovascular Rhythm: other (irregular) - Gastrointestinal General gastrointestinal: Present: soft, non-tender, non-distended, normal bowel sounds - Neurologic Neurological: alert and oriented x3 - Labs CBC & Chem 7: 10/09/18 00:54 10/08/18 20:40 Lab Results: Laboratory Results - last 24 hr 10/08/18 10/08/18 10/08/18 20:40 20:40 21:01 WBC 10.6 RBC 4.06 Hgb 12.5 Hct 37.5 MCV 92 MCH 31 MCHC 33 RDW 14.4 Plt Count 230 Lymph % (Auto) 17.1 [place] % (Auto) 7.2 Eos % (Auto) 0.6 Baso % (Auto) 0.5 Lymph # 1.8 Bertie # 0.8 Eos # 0.1 Baso # 0.1 Seg Neutrophils % 74.6 H Seg Neutrophils # 7.9 H PT 14.4 INR 1.05 APTT 34.6 D-Dimer 532.59 H Heparin Anti-Xa Level Sodium 132 L Potassium 4.9 Chloride 96.5 L Carbon Dioxide 22 Anion Gap 18 BUN 10 Creatinine 0.7 L Estimated GFR > 60 BUN/Creatinine Ratio 14 Glucose 109 H POC Glucose Calcium 9.3 Magnesium Total Bilirubin 0.50 AST 45 H ALT 43 Alkaline Phosphatase 58 Total Creatine Kinase CK-MB (CK-2) CK-MB (CK-2) Rel Index Troponin T 0.015 NT-Pro-B Natriuret Pep Total Protein 7.2 Albumin 4.2 Albumin/Globulin Ratio 1.4 Lipase 17 TSH Urine Color Urine Turbidity Urine pH Ur Specific [place] Urine Protein Urine Glucose (UA) Urine Ketones Urine Blood Urine Nitrite Urine Bilirubin Urine Urobilinogen Ur Leukocyte Esterase Urine WBC (Auto) Urine RBC (Auto) 10/08/18 10/09/18 10/09/18 21:01 00:37 00:54 WBC RBC Hgb Hct MCV MCH MCHC RDW Plt Count Lymph % (Auto) Bert[place] % (Auto) Eos % (Auto) Baso % (Auto) Lymph # [place] # Eos # Baso # Seg Neutrophils % Seg Neutrophils # PT INR APTT D-Dimer Heparin Anti-Xa Level Sodium Potassium Chloride Carbon Dioxide Anion Gap BUN Creatinine Estimated GFR BUN/Creatinine Ratio Glucose POC Glucose Calcium Magnesium Total Bilirubin AST ALT Alkaline Phosphatase Total Creatine Kinase CK-MB (CK-2) CK-MB (CK-2) Rel Index Troponin T 0.012 NT-Pro-B Natriuret Pep 1527 H Total Protein Albumin Albumin/Globulin Ratio Lipase TSH Urine Color Straw Urine Turbidity Clear Urine pH 7.0 Ur Specific [place] 1.021 Urine Protein <15 mg/dl Urine Glucose (UA) Neg Urine Ketones Neg Urine Blood Neg Urine Nitrite Neg Urine Bilirubin Neg Urine Urobilinogen < 2.0 Ur Leukocyte Esterase Neg Urine WBC (Auto) < 1.0 Urine RBC (Auto) 1.0 10/09/18 10/09/18 10/09/18 00:54 00:54 02:12 WBC RBC Hgb 12.5 Hct 38.2 MCV MCH MCHC RDW Plt Count 230 Lymph % (Auto) [place] % (Auto) Eos % (Auto) Baso % (Auto) Lymph # [place] # Eos # Baso # Seg Neutrophils % Seg Neutrophils # PT 14.8 INR 1.09 APTT 32.8 D-Dimer Heparin Anti-Xa Level Sodium Potassium Chloride Carbon Dioxide Anion Gap BUN Creatinine Estimated GFR BUN/Creatinine Ratio Glucose POC Glucose Calcium Magnesium Total Bilirubin AST ALT Alkaline Phosphatase Total Creatine Kinase 620 H CK-MB (CK-2) 12.0 H CK-MB (CK-2) Rel Index 1.9 Troponin T 0.016 NT-Pro-B Natriuret Pep Total Protein Albumin Albumin/Globulin Ratio Lipase TSH Urine Color Urine Turbidity Urine pH Ur Specific [place] Urine Protein Urine Glucose (UA) Urine Ketones Urine Blood Urine Nitrite Urine Bilirubin Urine Urobilinogen Ur Leukocyte Esterase Urine WBC (Auto) Urine RBC (Auto) 10/09/18 10/09/18 10/09/18 05:24 07:47 07:47 WBC RBC Hgb Hct MCV MCH MCHC RDW Plt Count Lymph % (Auto) [place] % (Auto) Eos % (Auto) Baso % (Auto) Lymph # [place] # Eos # Baso # Seg Neutrophils % Seg Neutrophils # PT INR APTT D-Dimer Heparin Anti-Xa Level 0.63 Sodium Potassium Chloride Carbon Dioxide Anion Gap BUN Creatinine Estimated GFR BUN/Creatinine Ratio Glucose POC Glucose 125 H Calcium Magnesium Total Bilirubin AST ALT Alkaline Phosphatase Total Creatine Kinase 541 H CK-MB (CK-2) 10.1 H CK-MB (CK-2) Rel Index 1.8 Troponin T 0.010 NT-Pro-B Natriuret Pep Total Protein Albumin Albumin/Globulin Ratio Lipase TSH Urine Color Urine Turbidity Urine pH Ur Specific [place] Urine Protein Urine Glucose (UA) Urine Ketones Urine Blood Urine Nitrite Urine Bilirubin Urine Urobilinogen Ur Leukocyte Esterase Urine WBC (Auto) Urine RBC (Auto) 10/09/18 10/09/18 10/09/18 08:02 10:44 10:44 WBC RBC Hgb Hct MCV MCH MCHC RDW Plt Count Lymph % (Auto) [place] % (Auto) Eos % (Auto) Baso % (Auto) Lymph # [place] # Eos # Baso # Seg Neutrophils % Seg Neutrophils # PT INR APTT D-Dimer Heparin Anti-Xa Level Sodium Potassium Chloride Carbon Dioxide Anion Gap BUN Creatinine Estimated GFR BUN/Creatinine Ratio Glucose POC Glucose 130 H Calcium Magnesium 2.00 Total Bilirubin AST ALT Alkaline Phosphatase Total Creatine Kinase CK-MB (CK-2) CK-MB (CK-2) Rel Index Troponin T NT-Pro-B Natriuret Pep Total Protein Albumin Albumin/Globulin Ratio Lipase TSH 1.230 Urine Color Urine Turbidity Urine pH Ur Specific [place] Urine Protein Urine Glucose (UA) Urine Ketones Urine Blood Urine Nitrite Urine Bilirubin Urine Urobilinogen Ur Leukocyte Esterase Urine WBC (Auto) Urine RBC (Auto) 10/09/18 11:59 WBC RBC Hgb Hct MCV MCH MCHC RDW Plt Count Lymph % (Auto) [place] % (Auto) Eos % (Auto) Baso % (Auto) Lymph # [place] # Eos # Baso # Seg Neutrophils % Seg Neutrophils # PT INR APTT D-Dimer Heparin Anti-Xa Level Sodium Potassium Chloride Carbon Dioxide Anion Gap BUN Creatinine Estimated GFR BUN/Creatinine Ratio Glucose POC Glucose 150 H Calcium Magnesium Total Bilirubin AST ALT Alkaline Phosphatase Total Creatine Kinase CK-MB (CK-2) CK-MB (CK-2) Rel Index Troponin T NT-Pro-B Natriuret Pep Total Protein Albumin Albumin/Globulin Ratio Lipase TSH Urine Color Urine Turbidity Urine pH Ur Specific [place] Urine Protein Urine Glucose (UA) Urine Ketones Urine Blood Urine Nitrite Urine Bilirubin Urine Urobilinogen Ur Leukocyte Esterase Urine WBC (Auto) Urine RBC (Auto) Assessment and Plan 1.abdominal pain -afebrile -WBC, H/H, plt, INR, and lipase WNL -LFTs-T.cris 0.50, AST 45, ALT 43, alk phos 58 -abdominal CT w/o acute GI pathology -patient reports generalized abdominal discomfort for last couple of days (pain nonspecific). No N/V or signs of bleeding. Tolerating diet. -last EGD in 2012 showed gastritis -Last colonoscopy 2008 showed angiodysplasia w/o bleeding in sigmoid colon and internal hemorrhoids -etiology unclear -no plan for scope at this time (will consider based on progress if symptoms persist once medically stable) -continue PPI and supportive care -will follow 2.alcohol dependence -plt and INR WNL -liver normal on CT -cessation discussed/encouraged with patient-monitor for signs of withdrawal 3.Afib with RVR- on cardizem drip; cardiology consult pending 4.bilateral pulmonary emboli-on heparin drip 5.CHF 6.COPD 7.GERD 8.HTN <SO ISAAC - Last Filed: 10/10/18 23:23> Medications and Allergies Active Meds: Active Medications Acetaminophen (Tylenol) 650 mg PO Q4H PRN PRN Reason: Pain MILD(1-3)/Fever >100.5/[place] Albuterol (Proventil) 2.5 mg IH Q6HRT PRN PRN Reason: Shortness Of Breath Albuterol/Ipratropium (Duoneb *Not For Prn Use*) 1 ampul IH TIDRT [facility] Last Admin: 10/10/18 21:05 Dose: 1 ampul Documented by: Amlodipine Besylate (Norvasc) 5 mg PO QDAY [facility] Last Admin: 10/10/18 10:55 Dose: 5 mg Documented by: Dextrose (D50w (25gm) Syringe) 50 ml IV PRN PRN PRN Reason: Hypoglycemia Diltiazem HCl (Cardizem) 60 mg PO Q6HR [facility] Last Admin: 10/10/18 23:20 Dose: 60 mg Documented by: Folic Acid (Folvite) 1 mg PO QDAY [facility] Last Admin: 10/10/18 10:55 Dose: 1 mg Documented by: Hydralazine HCl (Apresoline) 10 mg IV Q4HR PRN PRN Reason: BP >160/100 Heparin Sodium/Sodium Chloride (Heparin/ 0.45% Nacl-25,000 Unit/500 Ml) 25,000 unit in 500 mls @ 30 mls/hr IV TITR [facility]; Protocol Last Admin: 10/10/18 11:06 Dose: 1,500 units/hr, 30 mls/hr Documented by: Diltiazem HCl (Cardizem/D5w 100mg/100ml) 100 mg in 100 mls @ 5 mls/hr IV TITR [facility]; Protocol Lisinopril (Zestril) 10 mg PO QDAY [facility] Last Admin: 10/10/18 10:55 Dose: 10 mg Documented by: Lorazepam (Ativan) 1 mg IV Q1HR PRN PRN Reason: CIWA-Ar 8-15 Metoprolol Succinate (Toprol Xl) 25 mg PO QDAY [facility] Last Admin: 10/10/18 18:04 Dose: Not Given Documented by: Ondansetron HCl (Zofran) 4 mg IV Q8H PRN PRN Reason: Nausea And Vomiting Pantoprazole Sodium (Protonix) 40 mg PO QDAY [facility] Last Admin: 10/10/18 10:55 Dose: 40 mg Documented by: Pravastatin Sodium (Pravachol) 10 mg PO QHS [facility] Last Admin: 10/10/18 22:21 Dose: 10 mg Documented by: Sodium Chloride (Sodium Chloride Flush Syringe 10 Ml) 10 ml IV BID [facility] Last Admin: 10/10/18 22:22 Dose: 10 ml Documented by: Sodium Chloride (Sodium Chloride Flush Syringe 10 Ml) 10 ml IV PRN PRN PRN Reason: LINE FLUSH Thiamine HCl (Vitamin B-1) 100 mg PO QDAY [facility] Last Admin: 10/10/18 10:56 Dose: 100 mg Documented by: Exam - Constitutional Vital Signs: Temp Pulse Resp BP Pulse Ox 100.5 F H 98 H 27 H 116/67 97 10/10/18 20:00 10/10/18 23:20 10/10/18 21:22 10/10/18 23:20 10/10/18 21:06 - Labs CBC & Chem 7: 10/10/18 03:01 10/10/18 03:01 Lab Results: Laboratory Results - last 24 hr 10/10/18 10/10/18 10/10/18 03:01 03:01 08:16 WBC 13.5 H RBC 3.87 Hgb 12.0 Hct 35.7 MCV 92 MCH 31 MCHC 34 RDW 14.2 Plt Count 217 Lymph % (Auto) 11.5 L Bertie % (Auto) 6.9 Eos % (Auto) 0.1 Baso % (Auto) 0.2 Lymph # 1.6 Bertie # 0.9 H Eos # 0.0 Baso # 0.0 Seg Neutrophils % 81.3 H Seg Neutrophils # 11.0 H Heparin Anti-Xa Level 0.50 Sodium 133 L Potassium 4.5 Chloride 95.7 L Carbon Dioxide 22 Anion Gap 20 BUN 15 Creatinine 0.7 L Estimated GFR > 60 BUN/Creatinine Ratio 21 Glucose 140 H Calcium 8.8 Assessment and Plan Patient seen and examined 10/09/18. I have reviewed the advanced practitioner's evaluation, assessment, and plan, and agree with them. I note the following additions patient high risk for endoscopy currently, and lacks red flag signs and abdomen is not acute on exam, therefore will continue supportive care as detailed above
[2018-10-09] MEDS ORDERED: AMLODIPINE BESYLATE PO SCH (15:15)
[2018-10-09] MEDS ORDERED: BENAZEPRIL PO SCH (15:15)
[2018-10-09] MEDS ORDERED: APRESOLINE IV PRN (15:17)
[2018-10-09] MEDS: TOPROL XL PO SCH (15:50)
[2018-10-09] MEDS: NORVASC PO SCH (15:50)
[2018-10-09] MEDS ORDERED: TOPROL XL PO SCH (16:00)
[2018-10-09] MEDS: ZESTRIL PO SCH (17:44)
[2018-10-09] MEDS ORDERED: DUONEB *Not for PRN Use IH ONE (20:27)
[2018-10-09] MEDS ORDERED: NON-FORMULARY (Pravastatin Sodium [Pravastatin] 10 MG) PO SCH (22:00)
--- NOTE | 2018-10-09 22:31 | Consultation ---
PULMONARY CRITICAL CARE CONSULT NOTE CONSULTING PHYSICIAN: Tosha Rousseau DO REASON FOR CONSULTATION: Atrial fibrillation with rapid ventricular response, acute hypoxemic respiratory failure. CHIEF COMPLAINT AND HISTORY OF PRESENT ILLNESS: As follows: The patient is an 78-year-old -Dominican male with past medical history significant amongst other things both for a diagnosis of COPD and CHF, who came into the Emergency Room complaining of abdominal pain. He states that he was aching all over. He described it as a sharp pain, constant, no radiation. He really could not tell if there was any pleuritic component to it. He had had some nausea and vomiting. He had a cough productive of yellowish phlegm he tells me. He denied any gross or streaky hemoptysis. In the Emergency Room, he was evaluated and as part of the workup, a CT angiogram was done. It revealed bilateral pulmonary emboli as well as he was also found to be in atrial fibrillation with rapid ventricular response, hence the consult. He was transferred to the intensive care unit, started on a Cardizem drip and started on IV heparin drip. When I stopped by to see him, he was resting in bed. He was feeling a little bit better, was still requiring about 5 liters of oxygen to keep his O2 sats just around 89-90%. He does have a 10+ pack year tobacco smoking history, but quit smoking in 1983. He denied any new onset leg pain or swelling either unilaterally or bilaterally as far as he could tell. Denies any recent long distance travel. Denied any sick contacts. Denied any overt aspiration. That really is as much of the history of presentation as I have. PAST MEDICAL HISTORY: Again, COPD, CHF, hypertension, hyperlipidemia, gastroesophageal reflux disease. He is obese. PAST SURGICAL HISTORY: Denies. MEDICATIONS: He was on at the time I stopped by to see him were reviewed. Pertinent medications included the following: Tylenol 650 mg p.o. q. 4 hours p.r.n. mild pain or fevers, amlodipine 5 mg p.o. daily; diltiazem drip had been going at 5 mg an hour, folic acid 1 mg p.o. daily, heparin was going at 1500 units per hour, Zestril 10 mg p.o. daily, Ativan 1 mg IV q. 1 hour p.r.n. for CIWA protocol, which is the alcohol withdrawal protocol, metoprolol XL 25 mg p.o. daily, Protonix 40 mg p.o. daily, thiamine 100 mg p.o. daily. ALLERGIES: No known drug allergies. DIET: Obese gentleman. Denies significant weight loss or gain preceding few weeks to months. FAMILY AND SOCIAL HISTORY: Apparently lives in the community. Admits to drinking 10 beers a day. He denied alcohol or tobacco use at this time, but has a [id number] tobacco smoking history and he has a family history of hypertension. REVIEW OF SYSTEMS: No loss of consciousness. No new onset seizures. No new onset focal weakness. No gross hematochezia or melena. No gross hematuria or dysuria. No hematemesis. He did have the emesis. He had nausea. He had the palpitations, the abdominal pain. He denied heat or cold intolerance. Denied polydipsia or polyuria. Denied any diarrhea. Denied any prior bleeding diathesis. Denied easy bruising. Complete 13-system review of systems obtained. Pertinent positives and/or negatives as in body of the history above, otherwise they are noncontributory. PHYSICAL EXAMINATION: VITAL SIGNS: At presentation, he was afebrile, temperature 97.7 degrees Fahrenheit with a pulse of 148, respiratory rate of 35, blood pressure 155/96, oxygen sats were 90%, inspired oxygen concentration at that time was not recorded. When I stopped by to see him, O2 sats were about 89% and that was on 5 liters nasal cannula. GENERAL: Elderly-looking obese -Dominican male. Normocephalic, atraumatic, talking to me in partially interrupted sentences with mild to moderately increased work of breathing at rest. HEAD, EYES, EARS, NOSE AND THROAT: He is anicteric. No conjunctival erythema. He has some corneal opacification in the right eye. No gross jugular venous distention. Mallampati #3 oropharynx with a large neck circumference. No thyromegaly. Grossly, no palpable lymph nodes in the supraclavicular or submandibular lymph node chains. LUNGS: Auscultation of both lung oakes reveal bilateral rales, right greater than left. No active wheezing. HEART: Heart sounds 1 and 2 are heard. They were irregular rate and rhythm at the time of my evaluation without overt rubs or murmurs. ABDOMEN: Soft, full, bowel sounds are positive, nontender. No palpable hepatosplenomegaly. EXTREMITIES: With 1+ bipedal pitting edema, no significant digital clubbing or cyanosis. NEUROLOGIC: Pupils are equal, round, about 3 mm, reactive to light. Extraocular muscle movements are intact. He moves all 4 extremities spontaneously. SKIN: The skin is of normal turgor without overt cellulitis or rash. Pedal pulses are palpable bilaterally and strong. LABORATORY DATA: From my review are as follows: White cell count 10,600, hemoglobin 12.5, hematocrit 37.5, platelet count 230. INR 1.05. D-dimer was elevated at 533. Serum sodium 132, potassium 4.9, chloride 97, bicarbonate 22, BUN 10, creatinine 0.7. Glucose was 109. AST 45. Troponin within normal limits. BNP was elevated at 1527. TSH within normal limits. Urinalysis was unremarkable, bland, negative for leukocyte esterase and nitrites. No microbiology studies. Again, CT of the abdomen and pelvis was done. I have been able to review the radiologist's interpretation, mild colonic diverticulosis without evidence of diverticulitis, prostatic enlargement, moderate size bilateral pleural effusions. The CT angio was done. I have reviewed the CT angio, not the best contrast face timing, but certainly I do see filling defects in the left main pulmonary artery trunk around the initial bifurcation and I do think I see some in the right pulmonary artery, first order branch. Again, he does have bilateral moderate pleural effusions, moderate on the right, small on the left. I am unable to open long windows. The report mentions small bilateral pulmonary emboli. ASSESSMENT AND PLAN: 1. Acute hypoxemic respiratory failure. 2. Atrial fibrillation with rapid ventricular response. 3. Congestive heart failure with acute exacerbation. 4. Obesity. 5. Possible obstructive sleep apnea. 6. Alcohol abuse. 7. Atrial fibrillation with rapid ventricular response. 8. Mild hyponatremia. 9. History of tobacco abuse. 10. History of hyperlipidemia. 11. Gastroesophageal reflux disease. 12. Diabetes. PLAN: We will continue supplemental oxygen target and O2 sats 90% or greater. I will deploy bilevel positive air pressure ventilation therapy for use at bedtime with p.r.n. daytime use. I will do some gentle diuresis in him as long as his blood pressure supports it for the pulmonary edema and pleural effusions, volume overload essentially. He may need a thoracentesis before this is all done, but I will see his response overall to control of his heart rate as well as diuresis. We will continue the IV heparin drip, both for the atrial fibrillation, but also for the venous thromboembolic phenomenon. The question is which came first, the pulmonary embolism or atrial fibrillation. I await 2D echo to look for evidence of right heart strain. Glycemic control will be via sliding scale insulin. Target blood glucose less than 180 mg/dL. Continued tobacco abstinence has been offered. He is certainly at risk for going into delirium tremens. I do agree with thiamine and folic acid. We will continue the CIWA protocol while watching him closely. Bronchodilator treatments will also be ordered. We will do albuterol on a p.r.n. basis. He will be placed on GI prophylaxis, especially with him on full anticoagulation. Rate control will be per the health inspector. I will defer further management and workup to them. Flu and pneumonia vaccination will be addressed per protocol. Thank you very much for the consult. We will follow along and make further recommendations as picture progresses/becomes clearer. He is critically ill, at risk of further deterioration including the risk of from cardiopulmonary system deterioration. I will watch him closely with a plan to transfer him to the step-down unit if he continues to do well. Otherwise, we will watch him in the intensive care unit overnight. Thank you very much for the consult. At this time, I have spent about 35-40 minutes of critical care time without overlap and excluding any procedural time that may be necessary. JOB# [id number] MICHELA/CHARLES
[2018-10-09] MEDS: PRAVACHOL PO SCH (23:04)
[2018-10-10 04:58] LABS: Basophils % (Auto) 0.2 % (0.0-1.8); Eosinophils % (Auto) 0.1 % (0.0-4.3); Hematocrit 35.7 % (35.5-45.6); Lymphocytes # (Auto) 1.6 K/mm3 (1.2-5.4); Lymphocytes % (Auto) 11.5 % (13.4-35.0); Mean Corpuscular HGB Conc 34 % (32-34); Mean Corpuscular Volume 92 fl (84-94); Monocytes # (Auto) 0.9 K/mm3 (0.0-0.8); Monocytes % (Auto) 6.9 % (0.0-7.3); Platelet Count 217 K/mm3 (140-440); Red Blood Count 3.87 M/mm3 (3.65-5.03); Red Cell Distribution Width 14.2 % (13.2-15.2)
[2018-10-10 05:09] LABS: BUN/Creatinine Ratio 21; Blood Urea Nitrogen 15 mg/dL (9-20); Calcium 8.8 mg/dL (8.4-10.2); Hemolysis Index 1
[2018-10-10] MEDS: CARDIZEM PO SCH ×4 (07:42→23:20)
--- NOTE | 2018-10-10 08:58 | Progress Note ---
Assessment and Plan - Patient Problems (1) Pulmonary embolism Current Visit: Yes Status: Acute Plan to address problem: Patient is under management by internal medicine and pulmonary medicine. No active cardiac issues, we will follow intermittently. Subjective Date of service: 10/10/18 Interval history: Patient is comfortable, but on O2 face mask. No cardiac complaints. On telem etry, there is a mild sinus tachycardia with PACs. Objective Vital Signs Temp Pulse Pulse Pulse Resp Resp BP 10/10/18 07:42 101 H 140/80 10/10/18 04:09 98.4 F 10/10/18 04:00 100 H 20 10/10/18 03:31 93 H 19 10/10/18 00:00 97.4 F L 93 H 12 10/09/18 23:04 93 H 121/71 10/09/18 22:37 10/09/18 20:33 93 H 25 H 124/70 10/09/18 20:29 100 H 22 10/09/18 20:13 98.2 F 10/09/18 20:00 88 20 10/09/18 18:03 103 H 168/76 10/09/18 17:41 103 H 16 131/60 10/09/18 17:31 109 H 15 131/60 10/09/18 17:21 106 H 18 131/60 10/09/18 17:10 103 H 21 131/60 10/09/18 17:01 104 H 21 131/60 10/09/18 16:51 102 H 19 146/88 10/09/18 16:41 106 H 23 145/79 10/09/18 16:31 102 H 19 145/79 10/09/18 16:21 103 H 20 145/79 10/09/18 16:10 107 H 19 145/79 10/09/18 16:00 97.8 F 104 H 104 H 27 H 146/88 10/09/18 15:51 103 H 25 H 145/79 10/09/18 15:50 102 H 145/79 10/09/18 15:41 99 H 24 145/79 10/09/18 15:31 103 H 22 145/79 10/09/18 15:21 95 H 22 145/79 10/09/18 15:11 104 H 21 145/79 10/09/18 15:00 103 H 28 H 145/79 10/09/18 14:51 105 H 22 138/70 05 14:41 102 H 28 H 138/70 10/09/18 14:31 101 H 26 H 138/70 05 14:21 103 H 21 138/70 10/09/18 14:11 91 H 20 138/70 10/09/18 14:01 98 H 26 H 138/70 10/09/18 13:51 98 H 24 152/81 10/09/18 13:41 102 H 27 H 152/81 10/09/18 13:31 104 H 26 H 152/81 10/09/18 13:26 106 H 152/81 10/09/18 13:21 106 H 28 H 144/84 10/09/18 13:11 111 H 25 H 144/84 10/09/18 13:01 113 H 28 H 144/84 10/09/18 12:51 120 H 15 144/84 10/09/18 12:41 111 H 16 144/84 10/09/18 12:31 112 H 16 144/84 10/09/18 12:21 108 H 22 144/84 10/09/18 12:11 104 H 28 H 144/84 10/09/18 12:00 98.1 F 103 H 103 H 22 144/84 10/09/18 11:51 107 H 14 134/86 10/09/18 11:41 134/86 10/09/18 11:31 100 H 25 H 134/86 10/09/18 11:21 100 H 28 H 134/86 10/09/18 11:11 103 H 21 134/86 10/09/18 11:00 106 H 26 H 135/79 10/09/18 10:52 110 H 10/09/18 10:51 107 H 22 135/79 10/09/18 10:41 110 H 21 135/79 10/09/18 10:31 106 H 13 135/79 05 10:21 95 H 23 135/79 10/09/18 10:11 101 H 16 135/79 10/09/18 10:00 96 H 46 H 135/79 10/09/18 09:51 96 H 26 H 128/75 05 09:41 97 H 28 H 128/75 05 09:31 95 H 26 H 128/75 05/17/19 09:21 98 H 19 128/75 10/09/18 09:19 100 H 128/75 10/09/18 09:11 99 H 29 H 128/75 10/09/18 09:01 102 H 27 H 128/75 Pulse Ox 10/10/18 07:42 10/10/18 04:09 10/10/18 04:00 91 10/10/18 03:31 97 10/10/18 00:00 92 10/09/18 23:04 10/09/18 22:37 90 10/09/18 20:33 91 10/09/18 20:29 10/09/18 20:13 10/09/18 20:00 89 10/09/18 18:03 10/09/18 17:41 84 10/09/18 17:31 83 L 10/09/18 17:21 80 L 10/09/18 17:10 85 10/09/18 17:01 85 10/09/18 16:51 87 10/09/18 16:41 88 10/09/18 16:31 88 10/09/18 16:21 88 10/09/18 16:10 88 10/09/18 16:00 88 10/09/18 15:51 91 10/09/18 15:50 10/09/18 15:41 90 10/09/18 15:31 93 10/09/18 15:21 90 10/09/18 15:11 91 10/09/18 15:00 89 10/09/18 14:51 91 10/09/18 14:41 92 10/09/18 14:31 92 10/09/18 14:21 91 10/09/18 14:11 92 10/09/18 14:01 91 10/09/18 13:51 90 10/09/18 13:41 89 10/09/18 13:31 89 10/09/18 13:26 10/09/18 13:21 89 10/09/18 13:11 87 10/09/18 13:01 87 10/09/18 12:51 83 L 10/09/18 12:41 86 10/09/18 12:31 86 10/09/18 12:21 88 10/09/18 12:11 89 10/09/18 12:00 88 10/09/18 11:51 88 10/09/18 11:41 93 10/09/18 11:31 91 10/09/18 11:21 90 10/09/18 11:11 90 10/09/18 11:00 88 10/09/18 10:52 10/09/18 10:51 88 10/09/18 10:41 82 L 10/09/18 10:31 94 10/09/18 10:21 90 10/09/18 10:11 91 10/09/18 10:00 91 10/09/18 09:51 91 10/09/18 09:41 89 10/09/18 09:31 92 10/09/18 09:21 91 10/09/18 09:19 10/09/18 09:11 90 10/09/18 09:01 90 - Physical Examination General: No Apparent Distress HEENT: Positive: PERRL Neck: Positive: neck supple Cardiac: Positive: Regular Rhythm Lungs: Positive: Decreased Breath Sounds Neuro: Positive: Grossly Intact Abdomen: Positive: Soft Skin: Positive: Clear Extremities: Absent: edema - Labs and Meds CBC 10/10/18 Range/Units 03:01 WBC 13.5 H (4.5-11.0) K/mm3 RBC 3.87 (3.65-5.03) M/mm3 Hgb 12.0 (11.8-15.2) gm/dl Hct 35.7 (35.5-45.6) % Plt Count 217 (140-440) K/mm3 Lymph # 1.6 (1.2-5.4) K/mm3 [place] # 0.9 H (0.0-0.8) K/mm3 Eos # 0.0 (0.0-0.4) K/mm3 Baso # 0.0 (0.0-0.1) K/mm3 Comprehensive Metabolic Panel 10/10/18 Range/Units 03:01 Sodium 133 L (137-145) mmol/L Potassium 4.5 (3.6-5.0) mmol/L Chloride 95.7 L (98-107) mmol/L Carbon Dioxide 22 (22-30) mmol/L BUN 15 (9-20) mg/dL Creatinine 0.7 L (0.8-1.5) mg/dL Glucose 140 H (75-100) mg/dL Calcium 8.8 (8.4-10.2) mg/dL - Imaging and Cardiology EKG: image reviewed
[2018-10-10] MEDS: DUONEB *Not for PRN Use IH SCH ×3 (09:29→21:05)
[2018-10-10] MEDS: PROTONIX PO SCH (10:55)
[2018-10-10] MEDS: ZESTRIL PO SCH (10:55)
[2018-10-10] MEDS: NORVASC PO SCH (10:55)
[2018-10-10] MEDS: FOLVITE PO SCH (10:55)
[2018-10-10] MEDS: VITAMIN B-1 PO SCH (10:56)
[2018-10-10] MEDS: SODIUM CHLORIDE FLUSH SYRINGE 10 ML IV SCH ×2 (10:56→22:22)
--- NOTE | 2018-10-10 11:05 | Gastroenterology Progress Note ---
Assessment and Plan 1. GI: presented w/ abdominal pain with negative ct scan - reports pain improved, tolerating po - no plans to scope at this time - will follow for now 2. ETOH: pt on CIWA and stable - no signs significant liver disease - continue current meds and diet - if stable in am ok to d/c from GI standpoint Subjective Date of service: 10/10/18 Interval history: -reports no significant abdominal pain today. Staff reports no need Benzo's for CIWA Objective - Constitutional Vitals: Temp Pulse Resp BP Pulse Ox 98.6 F 108 H 23 137/91 91 10/10/18 08:00 10/10/18 09:01 10/10/18 09:01 10/10/18 09:01 10/10/18 09:32 General appearance: no acute distress - EENT Eyes: PERRL - Respiratory Respiratory: bilateral: CTA - Cardiovascular Rhythm: regular Heart Sounds: Present: S1 & S2 - Gastrointestinal General gastrointestinal: Present: soft, non-tender, non-distended - Labs CBC & Chem 7: 10/10/18 03:01 10/10/18 03:01 Labs: Laboratory Results - last 24 hr 10/09/18 10/09/18 10/09/18 10:44 10:44 11:59 WBC RBC Hgb Hct MCV MCH MCHC RDW Plt Count Lymph % (Auto) [place] % (Auto) Eos % (Auto) Baso % (Auto) Lymph # [place] # Eos # Baso # Seg Neutrophils % Seg Neutrophils # Heparin Anti-Xa Level POC ABG pH POC ABG pCO2 POC ABG pO2 POC ABG HCO3 POC ABG Total CO2 POC ABG O2 Sat POC ABG Base Excess FiO2 Sodium Potassium Chloride Carbon Dioxide Anion Gap BUN Creatinine Estimated GFR BUN/Creatinine Ratio Glucose POC Glucose 150 H Calcium Magnesium 2.00 TSH 1.230 10/09/18 10/10/18 10/10/18 14:52 03:01 03:01 WBC 13.5 H RBC 3.87 Hgb 12.0 Hct 35.7 MCV 92 MCH 31 MCHC 34 RDW 14.2 Plt Count 217 Lymph % (Auto) 11.5 L [place] % (Auto) 6.9 Eos % (Auto) 0.1 Baso % (Auto) 0.2 Lymph # 1.6 [place] # 0.9 H Eos # 0.0 Baso # 0.0 Seg Neutrophils % 81.3 H Seg Neutrophils # 11.0 H Heparin Anti-Xa Level POC ABG pH 7.341 L POC ABG pCO2 36.2 POC ABG pO2 62 L POC ABG HCO3 19.6 POC ABG Total CO2 21 POC ABG O2 Sat 90 POC ABG Base Excess -6 FiO2 36 Sodium 133 L Potassium 4.5 Chloride 95.7 L Carbon Dioxide 22 Anion Gap 20 BUN 15 Creatinine 0.7 L Estimated GFR > 60 BUN/Creatinine Ratio 21 Glucose 140 H POC Glucose Calcium 8.8 Magnesium TSH 10/10/18 08:16 WBC RBC Hgb Hct MCV MCH MCHC RDW Plt Count Lymph % (Auto) [place] % (Auto) Eos % (Auto) Baso % (Auto) Lymph # [place] # Eos # Baso # Seg Neutrophils % Seg Neutrophils # Heparin Anti-Xa Level 0.50 POC ABG pH POC ABG pCO2 POC ABG pO2 POC ABG HCO3 POC ABG Total CO2 POC ABG O2 Sat POC ABG Base Excess FiO2 Sodium Potassium Chloride Carbon Dioxide Anion Gap BUN Creatinine Estimated GFR BUN/Creatinine Ratio Glucose POC Glucose Calcium Magnesium TSH
[2018-10-10] MEDS: HEPARIN/ 0.45% NACL-25,000 UNIT/500 ML 25,000 UNIT/500 ML BAG IV SCH (11:06)
--- NOTE | 2018-10-10 13:05 | Progress Note ---
Assessment and Plan Assessment and plan: 78-year-old man presented to the hospital of abdominal pain and trouble breathing -Patient has a history of alcoholism drinks 10-12 beers a day PMH; hypertension, diabetes, hyperlipidemia, alcohol abuse, former smoker Atrial fibrillation with RVR and hypercoagulable Chronic systolic CHF, ef 45 -Cardiology consult, echo, rate control per cardiology, on oral dilt, tsh and mg wnl Bilateral pulmonary emboli Continue heparin drip, venous Dopplers of lower extremities neg Abdominal pain is nonspecific History of GERD, PPI CT abdomen and pelvis, shows no acute findings GI input appreciated Alcohol dependence and withdrawal CIWA protocol, IV fluids, Folate and thiamine Acute hypoxic respiratory failure cont oxygen supplementation, on venti mask COPD, chronic and stable History Interval history: Review of systems Constitutional: No fevers, no joint pains CVS: No chest pain, no orthopnea, no pedal edema GI: Abdominal pain is improved, no diarrhea, no vomiting Respiratory: no wheezing, no coughing, c.o of sob Hospitalist Physical - Physical exam Narrative exam: General.: no distress, nontoxic HEENT: Moist mucous membranes, extraocular muscles intact, no lymphadenopathy Neck: supple Cardiac: S1-S2 heard Lungs: diminished air entry Abdomen: soft , nontender, nondistended, bowel sounds positive Extremities: no edema clubbing or cyanosis Skin: no rash or lesions Neurologic: no gross focal deficits Psych: calm, and cooperative - Constitutional Vitals: Temp Pulse Resp BP Pulse Ox 98.2 F 108 H 23 137/91 91 10/10/18 11:48 10/10/18 09:01 10/10/18 09:01 10/10/18 09:01 10/10/18 09:32 General appearance: Present: no acute distress Results - Labs CBC & Chem 7: 10/11/18 03:48 10/10/18 03:01 Labs: Laboratory Last Values WBC 13.5 K/mm3 (4.5-11.0) H 10/10/18 03:01 RBC 3.87 M/mm3 (3.65-5.03) 10/10/18 03:01 Hgb 12.0 gm/dl (11.8-15.2) 10/10/18 03:01 Hct 35.7 % (35.5-45.6) 10/10/18 03:01 MCV 92 fl (84-94) 10/10/18 03:01 MCH 31 pg (28-32) 10/10/18 03:01 MCHC 34 % (32-34) 10/10/18 03:01 RDW 14.2 % (13.2-15.2) 10/10/18 03:01 Plt Count 217 K/mm3 (140-440) 10/10/18 03:01 Lymph % (Auto) 11.5 % (13.4-35.0) L 10/10/18 03:01 [place] % (Auto) 6.9 % (0.0-7.3) 10/10/18 03:01 Eos % (Auto) 0.1 % (0.0-4.3) 10/10/18 03:01 Baso % (Auto) 0.2 % (0.0-1.8) 10/10/18 03:01 Lymph # 1.6 K/mm3 (1.2-5.4) 10/10/18 03:01 [place] # 0.9 K/mm3 (0.0-0.8) H 10/10/18 03:01 Eos # 0.0 K/mm3 (0.0-0.4) 10/10/18 03:01 Baso # 0.0 K/mm3 (0.0-0.1) 10/10/18 03:01 Seg Neutrophils % 81.3 % (40.0-70.0) H 10/10/18 03:01 Seg Neutrophils # 11.0 K/mm3 (1.8-7.7) H 10/10/18 03:01 PT 14.8 Sec. (12.2-14.9) 10/09/18 00:54 INR 1.09 (0.87-1.13) 10/09/18 00:54 APTT 32.8 Sec. (24.2-36.6) 10/09/18 00:54 532.59 ng/mlDDU (0-234) H 10/08/18 21:01 Heparin Anti-Xa Level 0.50 U.I./ml (0.3-0.7) 10/10/18 08:16 POC ABG pH 7.341 (7.35-7.45) L 10/09/18 14:52 POC ABG pCO2 36.2 (35-45) 10/09/18 14:52 POC ABG pO2 62 (80-105) L 10/09/18 14:52 POC ABG HCO3 19.6 (22-26 mml/L) 10/09/18 14:52 POC ABG Total CO2 21 (23-27mmol/L) 10/09/18 14:52 POC ABG O2 Sat 90 10/09/18 14:52 POC ABG Base Excess -6 ((-2) - (+3)mmol/L) 10/09/18 14:52 36 % 10/09/18 14:52 Sodium 133 mmol/L (137-145) L 10/10/18 03:01 Potassium 4.5 mmol/L (3.6-5.0) 10/10/18 03:01 Chloride 95.7 mmol/L (98-107) L 10/10/18 03:01 Carbon Dioxide 22 mmol/L (22-30) 10/10/18 03:01 20 mmol/L 10/10/18 03:01 BUN 15 mg/dL (9-20) 10/10/18 03:01 0.7 mg/dL (0.8-1.5) L 10/10/18 03:01 Estimated GFR > 60 ml/min 10/10/18 03:01 21 % 10/10/18 03:01 Glucose 140 mg/dL (75-100) H 10/10/18 03:01 POC Glucose 150 (70-105) H 10/09/18 11:59 Calcium 8.8 mg/dL (8.4-10.2) 10/10/18 03:01 Magnesium 2.00 mg/dL (1.7-2.3) 10/09/18 10:44 0.50 mg/dL (0.1-1.2) 10/08/18 20:40 AST 45 units/L (5-40) H 10/08/18 20:40 ALT 43 units/L (7-56) 10/08/18 20:40 58 units/L (35-129) 10/08/18 20:40 541 units/L (55-170) H 10/09/18 07:47 CK-MB (CK-2) 10.1 ng/mL (0.0-4.0) H 10/09/18 07:47 CK-MB (CK-2) Rel Index 1.8 (0-4) 10/09/18 07:47 0.010 ng/mL (0.00-0.029) 10/09/18 07:47 NT-Pro-B Natriuret Pep 1527 pg/mL (0-900) H 10/08/18 21:01 7.2 g/dL (6.3-8.2) 10/08/18 20:40 4.2 g/dL (3.9-5) 10/08/18 20:40 1.4 % 10/08/18 20:40 17 units/L (13-60) 10/08/18 20:40 TSH 1.230 mlU/mL (0.270-4.200) 10/09/18 10:44 Straw (Yellow) 10/09/18 00:37 Clear (Clear) 10/09/18 00:37 7.0 (5.0-7.0) 10/09/18 00:37 Ur Specific [place] 1.021 (1.003-1.030) 10/09/18 00:37 <15 mg/dl mg/dL (Negative) 10/09/18 00:37 Neg mg/dL (Negative) 10/09/18 00:37 Neg mg/dL (Negative) 10/09/18 00:37 Neg (Negative) 10/09/18 00:37 Neg (Negative) 10/09/18 00:37 Neg (Negative) 10/09/18 00:37 < 2.0 mg/dL (<2.0) 10/09/18 00:37 Ur Leukocyte Esterase Neg (Negative) 10/09/18 00:37 < 1.0 /HPF (0.0-6.0) 10/09/18 00:37 1.0 /HPF (0.0-6.0) 10/09/18 00:37 Active Medications - Current Medications Current Medications: Generic Name Dose Route Start Last Admin Trade Name Freq PRN Reason Stop Dose Admin Acetaminophen 650 mg 10/09/18 01:46 Tylenol PO Q4H PRN Pain MILD(1-3)/Fever >100.5/[place] Albuterol 2.5 mg 10/09/18 12:37 Proventil IH Q6HRT PRN Shortness Of Breath Albuterol/Ipratropium 1 ampul 10/10/18 08:00 10/10/18 09:29 Duoneb *Not For Prn Use* IH 1 ampul TIDRT DEIDRA Administration Amlodipine Besylate 5 mg 10/09/18 13:00 10/10/18 10:55 Norvasc PO 5 mg QDAY DEIDRA Administration Dextrose 50 ml 10/09/18 04:38 D50w (25gm) Syringe IV PRN PRN Hypoglycemia Diltiazem HCl 60 mg 10/09/18 09:00 10/10/18 11:01 Cardizem PO 60 mg Q6HR DEIDRA Administration Folic Acid 1 mg 10/09/18 11:00 10/10/18 10:55 Folvite PO 1 mg QDAY DEIDRA Administration Hydralazine HCl 10 mg 10/09/18 15:17 Apresoline IV Q4HR PRN BP >160/100 Heparin Sodium/Sodium Chloride 25,000 unit in 500 mls @ 30 mls/hr 10/09/18 01:00 10/10/18 11:06 Heparin/ 0.45% Nacl-25,000 Unit/500 Ml IV 1,500 units/hr TITR DEIDRA 30 mls/hr Administration Protocol 1,500 UNITS/HR Diltiazem HCl 100 mg in 100 mls @ 5 mls/hr 10/09/18 09:00 Cardizem/D5w 100mg/100ml IV TITR DEIDRA Protocol 5 MG/HR Lisinopril 10 mg 10/09/18 13:00 10/10/18 10:55 Zestril PO 10 mg QDAY DEIDRA Administration Lorazepam 1 mg 10/09/18 02:16 Ativan IV Q1HR PRN CIWA-Ar 8-15 Metoprolol Succinate 25 mg 10/09/18 13:00 10/09/18 15:50 Toprol Xl PO 25 mg QDAY DEIDRA Administration Ondansetron HCl 4 mg 10/09/18 01:46 Zofran IV Q8H PRN Nausea And Vomiting Pantoprazole Sodium 40 mg 10/09/18 11:00 10/10/18 10:55 Protonix PO 40 mg QDAY DEIDRA Administration Pravastatin Sodium 10 mg 10/09/18 22:00 10/09/18 23:04 Pravachol PO 10 mg QHS DEIDRA Administration Sodium Chloride 10 ml 10/09/18 10:00 10/10/18 10:56 Sodium Chloride Flush Syringe 10 Ml IV 10 ml BID DEIDRA Administration Sodium Chloride 10 ml 10/09/18 01:46 Sodium Chloride Flush Syringe 10 Ml IV PRN PRN LINE FLUSH Thiamine HCl 100 mg 10/09/18 11:00 10/10/18 10:56 Vitamin B-1 PO 100 mg QDAY DEIDRA Administration Nutrition/Malnutrition Assess - Dietary Evaluation Nutrition/Malnutrition Findings: Nutrition Notes Start: 10/09/18 14 :34 Freq: Status: Active Protocol: Document 10/10/18 09:41 RD (Rec: 10/10/18 09:44 RD [id number]) Co-Sign 10/10/18 09:41 LP Nutrition Notes Need for Assessment generated from: substance abuse therapist Initial or Follow up Brief Note Current Diagnosis COPD,Diabetes,Hypertension, Heart Failure,Hyperlipidemia Other Pertinent Diagnosis Abdominal pain, N/V, Alcohol abuse, GERD Current Diet Cardiac [place] Body Weight (kg) 0 Subjective/Other Information RD screen for new onset diabetes and skin risk assessment. Po score = 18. Pt using bathroom at time of visit and said he would like his daughter to be present for his diabetes education. Pt requested education to be given at another time. Nutrition Intervention Follow-Up By: 10/12/18 Additional Comments f/u: DM education
--- NOTE | 2018-10-10 15:09 | Progress Note ---
Assessment and Plan Patient awake . Resting on venturi mask, FIO2 50%, O2 saturation 97%. No acute respiratory distress. Angio CT of chest reported small bilateral pulmonary emboli. Patient is on I/V heparin. - Patient Problems (1) Pulmonary embolism Current Visit: Yes Status: Acute Plan to address problem: Patient is on I/V heparin. (2) Pleural effusion, bilateral Current Visit: Yes Status: Acute Plan to address problem: Ultrasound of chest probably on friday. (3) Acute respiratory failure with hypoxia Current Visit: Yes Status: Acute Plan to address problem: O2 supplemenation , Venturi mask, FIO2 50%. (4) COPD exacerbation Current Visit: No Status: Acute Plan to address problem: O2 supplementation, FIO2 50%. Albuterol/atrovent aerosol treatments q 6 hours. Patient is on I/V Heparin. Continue protonix. (5) Atrial flutter Current Visit: Yes Status: Acute Plan to address problem: Patient is on I/V Heparin. Management as per cardiology. (6) CHF (congestive heart failure) Current Visit: Yes Status: Acute Plan to address problem: Management as per cardiology. (7) GERD (gastroesophageal reflux disease) Current Visit: No Status: Chronic Qualifiers: Esophagitis presence: without esophagitis Qualified Code(s): K21.9 - Gastro-esophageal reflux disease without esophagitis Plan to address problem: Continue Protonix. (8) Hypertension Current Visit: No Status: Chronic Qualifiers: Hypertension type: essential hypertension Qualified Code(s): I10 - Essential (primary) hypertension Plan to address problem: Management as per primary care. Subjective Date of service: 10/10/18 Interval history: Patient awake . Resting on venturi mask, FIO2 50%, O2 saturation 97%. No acute respiratory distress. Angio CT of chest reported small bilateral pulmonary emboli. Patient is on I/V heparin. Objective Vital Signs - 12hr 10/10/18 10/10/18 10/10/18 03:31 04:00 04:09 Temperature 98.4 F Pulse Rate 93 H Pulse Rate [ 100 H From Monitor] Respiratory 19 20 Rate Blood Pressure O2 Sat by Pulse 97 91 Oximetry 10/10/18 10/10/18 10/10/18 05:53 06:01 06:11 Temperature Pulse Rate 122 H 123 H Pulse Rate [ From Monitor] Respiratory 36 H 35 H Rate Blood Pressure 172/83 178/84 O2 Sat by Pulse 100 97 98 Oximetry 10/10/18 10/10/18 10/10/18 06:21 06:31 06:41 Temperature Pulse Rate 125 H 124 H 120 H Pulse Rate [ From Monitor] Respiratory 36 H 34 H 32 H Rate Blood Pressure 178/84 164/86 164/86 O2 Sat by Pulse 98 98 99 Oximetry 10/10/18 10/10/18 10/10/18 06:51 07:01 07:11 Temperature Pulse Rate 125 H 128 H 120 H Pulse Rate [ From Monitor] Respiratory 35 H 33 H 30 H Rate Blood Pressure 164/86 164/86 164/86 O2 Sat by Pulse 97 97 98 Oximetry 10/10/18 10/10/18 10/10/18 07:21 07:31 07:41 Temperature Pulse Rate 118 H 120 H 124 H Pulse Rate [ From Monitor] Respiratory 33 H 31 H 28 H Rate Blood Pressure 164/86 148/74 148/74 O2 Sat by Pulse 98 95 97 Oximetry 10/10/18 10/10/18 10/10/18 07:42 07:51 08:00 Temperature 98.6 F Pulse Rate 101 H 125 H Pulse Rate [ 100 H From Monitor] Respiratory 34 H 20 Rate Blood Pressure 140/80 161/72 O2 Sat by Pulse 97 91 Oximetry 10/10/18 10/10/18 10/10/18 08:01 08:11 08:21 Temperature Pulse Rate 117 H 124 H 102 H Pulse Rate [ From Monitor] Respiratory 36 H 27 H 26 H Rate Blood Pressure 162/73 143/70 O2 Sat by Pulse 97 96 95 Oximetry 10/10/18 10/10/18 10/10/18 08:31 08:41 08:51 Temperature Pulse Rate 112 H 109 H 105 H Pulse Rate [ From Monitor] Respiratory 22 22 24 Rate Blood Pressure 131/83 O2 Sat by Pulse 86 81 L 82 L Oximetry 10/10/18 10/10/18 10/10/18 09:01 09:32 11:48 Temperature 98.2 F Pulse Rate 108 H Pulse Rate [ From Monitor] Respiratory 23 Rate Blood Pressure 137/91 O2 Sat by Pulse 78 L 91 Oximetry Constitutional: no acute distress, alert Eyes: non-icteric ENT: oropharynx moist Neck: supple, no lymphadenopathy Ascultation: Bilateral: diminished breath sounds Cardiovascular: regular rate and rhythm Gastrointestinal: normoactive bowel sounds, soft Integumentary: normal Extremities: no cyanosis, no edema Neurologic: normal mental status, non-focal exam, pupils equal and round, CN II- XII normal Psychiatric: mood appropriate CBC and BMP: 10/10/18 03:01 10/10/18 03:01 ABG, PT/INR, D-dimer: ABG POC ABG pH 7.341 (7.35-7.45) L 10/09/18 14:52 POC ABG pCO2 36.2 (35-45) 10/09/18 14:52 POC ABG pO2 62 (80-105) L 10/09/18 14:52 POC ABG HCO3 19.6 (22-26 mml/L) 10/09/18 14:52 POC ABG Total CO2 21 (23-27mmol/L) 10/09/18 14:52 POC ABG O2 Sat 90 10/09/18 14:52 PT/INR, D-dimer PT 14.8 Sec. (12.2-14.9) 10/09/18 00:54 INR 1.09 (0.87-1.13) 10/09/18 00:54 532.59 ng/mlDDU (0-234) H 10/08/18 21:01 Abnormal lab findings: Abnormal Labs 10/08/18 10/08/18 10/08/18 20:40 20:40 21:01 WBC Lymph % (Auto) Pender # Seg Neutrophils % 74.6 H Seg Neutrophils # 7.9 H D-Dimer 532.59 H POC ABG pH POC ABG pO2 Sodium 132 L Chloride 96.5 L Creatinine 0.7 L Glucose 109 H POC Glucose AST 45 H Total Creatine Kinase CK-MB (CK-2) NT-Pro-B Natriuret Pep 10/08/18 10/09/18 10/09/18 21:01 02:12 05:24 WBC Lymph % (Auto) [place] # Seg Neutrophils % Seg Neutrophils # D-Dimer POC ABG pH POC ABG pO2 Sodium Chloride Creatinine Glucose POC Glucose 125 H AST Total Creatine Kinase 620 H CK-MB (CK-2) 12.0 H NT-Pro-B Natriuret Pep 1527 H 10/09/18 10/09/18 10/09/18 07:47 08:02 11:59 WBC Lymph % (Auto) [place] # Seg Neutrophils % Seg Neutrophils # D-Dimer POC ABG pH POC ABG pO2 Sodium Chloride Creatinine Glucose POC Glucose 130 H 150 H AST Total Creatine Kinase 541 H CK-MB (CK-2) 10.1 H NT-Pro-B Natriuret Pep 10/09/18 10/10/18 10/10/18 14:52 03:01 03:01 WBC 13.5 H Lymph % (Auto) 11.5 L Pender # 0.9 H Seg Neutrophils % 81.3 H Seg Neutrophils # 11.0 H D-Dimer POC ABG pH 7.341 L POC ABG pO2 62 L Sodium 133 L Chloride 95.7 L Creatinine 0.7 L Glucose 140 H POC Glucose AST Total Creatine Kinase CK-MB (CK-2) NT-Pro-B Natriuret Pep Chest x-ray: report reviewed, image reviewed CT scan - chest: report reviewed, image reviewed Prior PFT's, U/S of legs: report reviewed, image reviewed Additional Studies: Chest xray done 11/08/18 FINDINGS: Frontal and lateral views of the chest were acquired and compared to the prior examination of May 03. There is cardiomegaly. There is mild pulmonary edema which is worse. There is some left lower lobe pulmonary consolidation best seen on lateral view, suspicious for pneumonia. IMPRESSION: Mild pulmonary edema, worse Left lower lobe infiltrate, new, suspicious for pneumonia Angio CT of chest. done 10/08/18 FINDINGS: Contrast-enhanced CT angiography of the chest was performed following intravenous administration 100 cc on the These images demonstrate pulmonary embolism within a branch of the left upper lobe pulmonary artery, sagittal image 91, coronal image 120. Second left upper lobe pulmonary embolism is seen , sagittal image 92, coronal image 144. Left lower lobe nonocclusive pulmonary embolism is present on sagittal image 81. There is a right lower lobe nonocclusive pulmonary embolism, sagittal image 216, coronal image 131. There is no aortic dissection. There is coronary artery calcification. There are large bilateral pleural e ffusions. There is no pericardial effusion. In the upper abdomen, there is fatty infiltration of the liver. IMPRESSION: Small bilateral pulmonary emboli. Venous doppler studies of legs done on 10/09/18 FINDINGS: There is no deep venous thrombosis seen in the left or right lower extremity. Flow is demonstrated by color flow and spectral waveform imaging. There is appropriate wall compression and augmentation. There is no superficial venous thrombus seen. IMPRESSION: There is no evidence for DVT in either right or left lower extremity.
[2018-10-10] MEDS: TOPROL XL PO SCH (18:04)
[2018-10-10] MEDS: PRAVACHOL PO SCH (22:21)
[2018-10-11 04:10] LABS: Hematocrit 32.8 % (35.5-45.6); Hemoglobin 10.9 gm/dl (11.8-15.2)
[2018-10-11] MEDS: CARDIZEM PO SCH ×3 (05:47→17:51)
[2018-10-11] MEDS: HEPARIN/ 0.45% NACL-25,000 UNIT/500 ML 25,000 UNIT/500 ML BAG IV SCH (07:14)
[2018-10-11] MEDS: DUONEB *Not for PRN Use IH SCH ×3 (07:51→19:09)
[2018-10-11] MEDS: NORVASC PO SCH (09:29)
[2018-10-11] MEDS: FOLVITE PO SCH (09:29)
[2018-10-11] MEDS: VITAMIN B-1 PO SCH (09:29)
[2018-10-11] MEDS: PROTONIX PO SCH (09:29)
[2018-10-11] MEDS: SODIUM CHLORIDE FLUSH SYRINGE 10 ML IV SCH ×2 (09:29→23:00)
[2018-10-11] MEDS: ZESTRIL PO SCH (09:29)
[2018-10-11] MEDS: TOPROL XL PO SCH (09:35)
--- NOTE | 2018-10-11 13:37 | Gastroenterology Progress Note ---
Assessment and Plan GI: stable w/ no complaints, abdominal pain resolved - tolerating po - diet as tolerated - follow labs - no signs ETOH withdrawal - ok to d/c from GI standpoint - will off, call if needed Subjective Date of service: 10/11/18 Interval history: - reports no abdominal pain, tolerating po Objective - Constitutional Vitals: Temp Pulse Resp BP Pulse Ox 99.4 F 102 H 26 H 126/79 94 10/11/18 08:00 10/11/18 13:31 10/11/18 13:31 10/11/18 13:31 10/11/18 13:31 General appearance: no acute distress - EENT Eyes: PERRL - Respiratory Respiratory: bilateral: CTA - Cardiovascular Rhythm: regular Heart Sounds: Present: S1 & S2 - Gastrointestinal General gastrointestinal: Present: soft, non-tender, non-distended - Labs CBC & Chem 7: 10/11/18 03:48 10/10/18 03:01 Labs: Laboratory Results - last 24 hr 10/10/18 10/11/18 06:46 03:48 Hgb 10.9 L Hct 32.8 L Plt Count 203 POC Glucose 139 H
--- NOTE | 2018-10-11 14:43 | Progress Note ---
Assessment and Plan Assessment and plan: 78-year-old man presented to the hospital of abdominal pain and trouble breathing -Patient has a history of alcoholism drinks 10-12 beers a day PMH; hypertension, diabetes, hyperlipidemia, alcohol abuse, former smoker Atrial fibrillation with RVR and hypercoagulable Chronic systolic CHF, ef 45 -Cardiology consult, echo, rate control per cardiology, on oral dilt, tsh and mg wnl Bilateral pulmonary emboli Continue heparin drip, venous Dopplers of lower extremities neg acute on chronic systolic chf, ef 45 trial of lasix Abdominal pain is nonspecific History of GERD, PPI CT abdomen and pelvis, shows no acute findings GI input appreciated Alcohol dependence and withdrawal CIWA protocol, IV fluids, Folate and thiamine Acute hypoxic respiratory failure cont oxygen supplementation, on high flow oxygen, repeat cxr in am, trial of lasix COPD, chronic and stable History Interval history: Review of systems Constitutional: No fevers, no joint pains CVS: No chest pain, no orthopnea, no pedal edema GI: Abdominal pain is improved, no diarrhea, no vomiting Respiratory: no wheezing, no coughing, c.o of sob Hospitalist Physical - Physical exam Narrative exam: General.: no distress, nontoxic HEENT: Moist mucous membranes, extraocular muscles intact, no lymphadenopathy Neck: supple Cardiac: S1-S2 heard Lungs: diminished air entry Abdomen: soft , nontender, nondistended, bowel sounds positive Extremities: no edema clubbing or cyanosis Skin: no rash or lesions Neurologic: no gross focal deficits Psych: calm, and cooperative - Constitutional Vitals: Temp Pulse Resp BP Pulse Ox 99.4 F 102 H 26 H 126/79 94 10/11/18 08:00 10/11/18 13:31 10/11/18 13:31 10/11/18 13:31 10/11/18 13:31 General appearance: Present: no acute distress Results - Labs CBC & Chem 7: 10/11/18 03:48 10/10/18 03:01 Labs: Laboratory Last Values WBC 13.5 K/mm3 (4.5-11.0) H 10/10/18 03:01 RBC 3.87 M/mm3 (3.65-5.03) 10/10/18 03:01 Hgb 10.9 gm/dl (11.8-15.2) L 10/11/18 03:48 Hct 32.8 % (35.5-45.6) L 10/11/18 03:48 MCV 92 fl (84-94) 10/10/18 03:01 MCH 31 pg (28-32) 10/10/18 03:01 MCHC 34 % (32-34) 10/10/18 03:01 RDW 14.2 % (13.2-15.2) 10/10/18 03:01 Plt Count 203 K/mm3 (140-440) 10/11/18 03:48 Lymph % (Auto) 11.5 % (13.4-35.0) L 10/10/18 03:01 [place] % (Auto) 6.9 % (0.0-7.3) 10/10/18 03:01 Eos % (Auto) 0.1 % (0.0-4.3) 10/10/18 03:01 Baso % (Auto) 0.2 % (0.0-1.8) 10/10/18 03:01 Lymph # 1.6 K/mm3 (1.2-5.4) 10/10/18 03:01 [place] # 0.9 K/mm3 (0.0-0.8) H 10/10/18 03:01 Eos # 0.0 K/mm3 (0.0-0.4) 10/10/18 03:01 Baso # 0.0 K/mm3 (0.0-0.1) 10/10/18 03:01 Seg Neutrophils % 81.3 % (40.0-70.0) H 10/10/18 03:01 Seg Neutrophils # 11.0 K/mm3 (1.8-7.7) H 10/10/18 03:01 PT 14.8 Sec. (12.2-14.9) 10/09/18 00:54 INR 1.09 (0.87-1.13) 10/09/18 00:54 APTT 32.8 Sec. (24.2-36.6) 10/09/18 00:54 532.59 ng/mlDDU (0-234) H 10/08/18 21:01 Heparin Anti-Xa Level 0.50 U.I./ml (0.3-0.7) 10/10/18 08:16 POC ABG pH 7.341 (7.35-7.45) L 10/09/18 14:52 POC ABG pCO2 36.2 (35-45) 10/09/18 14:52 POC ABG pO2 62 (80-105) L 10/09/18 14:52 POC ABG HCO3 19.6 (22-26 mml/L) 10/09/18 14:52 POC ABG Total CO2 21 (23-27mmol/L) 10/09/18 14:52 POC ABG O2 Sat 90 10/09/18 14:52 POC ABG Base Excess -6 ((-2) - (+3)mmol/L) 10/09/18 14:52 36 % 10/09/18 14:52 Sodium 133 mmol/L (137-145) L 10/10/18 03:01 Potassium 4.5 mmol/L (3.6-5.0) 10/10/18 03:01 Chloride 95.7 mmol/L (98-107) L 10/10/18 03:01 Carbon Dioxide 22 mmol/L (22-30) 10/10/18 03:01 20 mmol/L 10/10/18 03:01 BUN 15 mg/dL (9-20) 10/10/18 03:01 0.7 mg/dL (0.8-1.5) L 10/10/18 03:01 Estimated GFR > 60 ml/min 10/10/18 03:01 21 % 10/10/18 03:01 Glucose 140 mg/dL (75-100) H 10/10/18 03:01 POC Glucose 139 (70-105) H 10/10/18 06:46 Calcium 8.8 mg/dL (8.4-10.2) 10/10/18 03:01 Magnesium 2.00 mg/dL (1.7-2.3) 10/09/18 10:44 0.50 mg/dL (0.1-1.2) 10/08/18 20:40 AST 45 units/L (5-40) H 10/08/18 20:40 ALT 43 units/L (7-56) 10/08/18 20:40 58 units/L (35-129) 10/08/18 20:40 541 units/L (55-170) H 10/09/18 07:47 CK-MB (CK-2) 10.1 ng/mL (0.0-4.0) H 10/09/18 07:47 CK-MB (CK-2) Rel Index 1.8 (0-4) 10/09/18 07:47 0.010 ng/mL (0.00-0.029) 10/09/18 07:47 NT-Pro-B Natriuret Pep 1527 pg/mL (0-900) H 10/08/18 21:01 7.2 g/dL (6.3-8.2) 10/08/18 20:40 4.2 g/dL (3.9-5) 10/08/18 20:40 1.4 % 10/08/18 20:40 17 units/L (13-60) 10/08/18 20:40 TSH 1.230 mlU/mL (0.270-4.200) 10/09/18 10:44 Straw (Yellow) 10/09/18 00:37 Clear (Clear) 10/09/18 00:37 7.0 (5.0-7.0) 10/09/18 00:37 Ur Specific [place] 1.021 (1.003-1.030) 10/09/18 00:37 <15 mg/dl mg/dL (Negative) 10/09/18 00:37 Neg mg/dL (Negative) 10/09/18 00:37 Neg mg/dL (Negative) 10/09/18 00:37 Neg (Negative) 10/09/18 00:37 Neg (Negative) 10/09/18 00:37 Neg (Negative) 10/09/18 00:37 < 2.0 mg/dL (<2.0) 10/09/18 00:37 Ur Leukocyte Esterase Neg (Negative) 10/09/18 00:37 < 1.0 /HPF (0.0-6.0) 10/09/18 00:37 1.0 /HPF (0.0-6.0) 10/09/18 00:37 Active Medications - Current Medications Current Medications: Generic Name Dose Route Start Last Admin Trade Name Freq PRN Reason Stop Dose Admin Acetaminophen 650 mg 10/09/18 01:46 Tylenol PO Q4H PRN Pain MILD(1-3)/Fever >100.5/[place] Albuterol 2.5 mg 05/17/19 12:37 Proventil IH Q6HRT PRN Shortness Of Breath Albuterol/Ipratropium 1 ampul 10/10/18 08:00 10/11/18 07:51 Duoneb *Not For Prn Use* IH 1 ampul TIDRT DEIDRA Administration Amlodipine Besylate 5 mg 10/09/18 13:00 10/11/18 09:29 Norvasc PO 5 mg QDAY DEIDRA Administration Dextrose 50 ml 10/09/18 04:38 D50w (25gm) Syringe IV PRN PRN Hypoglycemia Diltiazem HCl 60 mg 10/09/18 09:00 10/11/18 05:47 Cardizem PO 60 mg Q6HR DEIDRA Administration Folic Acid 1 mg 10/09/18 11:00 10/11/18 09:29 Folvite PO 1 mg QDAY DEIDRA Administration Hydralazine HCl 10 mg 10/09/18 15:17 Apresoline IV Q4HR PRN BP >160/100 Heparin Sodium/Sodium Chloride 25,000 unit in 500 mls @ 30 mls/hr 10/09/18 01:00 10/11/18 07:14 Heparin/ 0.45% Nacl-25,000 Unit/500 Ml IV 1,500 units/hr TITR DEIDRA 30 mls/hr Administration Protocol 1,500 UNITS/HR Diltiazem HCl 100 mg in 100 mls @ 5 mls/hr 10/09/18 09:00 Cardizem/D5w 100mg/100ml IV TITR DEIDRA Protocol 5 MG/HR Lisinopril 10 mg 10/09/18 13:00 10/11/18 09:29 Zestril PO 10 mg QDAY DEIDRA Administration Lorazepam 1 mg 10/09/18 02:16 Ativan IV Q1HR PRN CIWA-Ar 8-15 Metoprolol Succinate 25 mg 10/09/18 13:00 10/11/18 09:35 Toprol Xl PO 25 mg QDAY DEIDRA Administration Ondansetron HCl 4 mg 10/09/18 01:46 Zofran IV Q8H PRN Nausea And Vomiting Pantoprazole Sodium 40 mg 10/09/18 11:00 10/11/18 09:29 Protonix PO 40 mg QDAY DEIDRA Administration Pravastatin Sodium 10 mg 10/09/18 22:00 10/10/18 22:21 Pravachol PO 10 mg QHS DEIDRA Administration Sodium Chloride 10 ml 10/09/18 10:00 10/11/18 09:29 Sodium Chloride Flush Syringe 10 Ml IV 10 ml BID DEIDRA Administration Sodium Chloride 10 ml 10/09/18 01:46 Sodium Chloride Flush Syringe 10 Ml IV PRN PRN LINE FLUSH Thiamine HCl 100 mg 10/09/18 11:00 10/11/18 09:29 Vitamin B-1 PO 100 mg QDAY DEIDRA Administration Nutrition/Malnutrition Assess - Dietary Evaluation Nutrition/Malnutrition Findings: Nutrition Notes Start: 10/09/18 14:3 4 Freq: Status: Active Protocol: Document 10/10/18 15:18 RM (Rec: 10/10/18 15:21 RM [id number]) Nutrition Notes Initial or Follow up Assessment Current Diagnosis COPD,Diabetes,Hypertension, Heart Failure,Hyperlipidemia Other Pertinent Diagnosis Abdominal pain, N/V, Alcohol abuse, GERD Current Diet Cardiac Labs/Tests Reviewed Pertinent Medications Reviewed Height 6 ft Weight 104.1 kg [place] Body Weight (kg) 80.90 BMI 31.1 Subjective/Other Information Pt daughter present at time of visit. Reviewed DM diet education. Gave handout. Burn Absent Trauma Absent #1 Nutrition Diagnosis Food and nutrition-related knowledge deficit Etiology lack of prior education As Evidenced by Signs and Symptoms pt and pt daughter desire for education Nutrition Intervention Teaching Recipient Family Learning Readiness Good Teaching Methods Discussion,Handout Response to Teaching Verbalize understanding Education Handouts Provided Carbohydrate counting for people with diabetes Barriers to Learning No Barriers RD phone number provided Yes Patient aware of follow up options Yes Goal #1 Utilize carbohydrate counting Revisit per MD consult or patient Sign Off request:
--- NOTE | 2018-10-11 15:29 | Progress Note ---
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 Subjective Date of service: 10/11/18 Interval history: Patient is comfortable, on telemetry there is a normal sinus rhythm. Echocardiogram shows left ventricular ejection fraction 45%, mild mitral stenosis, moderate to severe regurgitant lesions of the mitral and tricuspid valves, severe pulmonary hypertension with a pulmonary artery systolic pressure of 69. Objective Vital Signs Temp Pulse Pulse Pulse Resp Resp BP 10/11/18 13:31 102 H 26 H 126/79 10/11/18 13:21 102 H 29 H 126/79 10/11/18 13:11 100 H 24 126/79 10/11/18 13:00 98 H 27 H 123/80 10/11/18 12:51 98 H 25 H 118/71 10/11/18 12:41 105 H 27 H 118/71 10/11/18 12:31 106 H 25 H 118/71 10/11/18 12:21 102 H 26 H 118/71 10/11/18 12:11 101 H 26 H 118/71 10/11/18 12:01 104 H 27 H 126/79 10/11/18 12:00 98.6 F 10/11/18 11:51 100 H 22 118/71 10/11/18 11:41 97 H 20 118/71 10/11/18 11:31 96 H 20 118/71 10/11/18 11:21 97 H 21 118/71 10/11/18 11:11 96 H 21 118/71 10/11/18 11:00 96 H 21 118/71 10/11/18 10:51 97 H 20 137/75 10/11/18 10:41 97 H 21 137/75 10/11/18 10:31 104 H 26 H 137/75 10/11/18 10:21 97 H 39 H 137/75 10/11/18 10:11 97 H 26 H 137/75 10/11/18 10:00 97 H 20 139/76 10/11/18 09:51 103 H 26 H 137/75 10/11/18 09:41 100 H 26 H 137/75 10/11/18 09:35 108 H 18 10/11/18 09:31 101 H 28 H 137/75 10/11/18 09:22 107 H 28 H 10/11/18 09:21 96 H 24 137/75 10/11/18 09:11 96 H 20 137/75 10/11/18 09:00 102 H 28 H 137/75 10/11/18 08:51 102 H 28 H 138/81 10/11/18 08:41 107 H 28 H 138/81 10/11/18 08:31 110 H 30 H 138/81 10/11/18 08:21 102 H 19 138/81 10/11/18 08:11 101 H 26 H 138/81 10/11/18 08:00 99.4 F 102 H 107 H 92 H 27 H 27 H 138/81 10/11/18 07:51 101 H 16 118/71 10/11/18 07:41 97 H 22 118/71 10/11/18 07:31 95 H 45 H 118/71 10/11/18 07:21 105 H 20 118/71 10/11/18 07:11 99 H 29 H 118/71 10/11/18 07:00 93 H 23 118/71 10/11/18 06:51 94 H 22 140/81 10/11/18 06:41 93 H 21 140/81 10/11/18 06:31 101 H 21 140/81 10/11/18 06:21 94 H 26 H 140/81 10/11/18 06:11 96 H 23 140/81 10/11/18 06:01 100 H 23 140/81 10/11/18 05:51 107 H 22 125/71 10/11/18 05:47 103 H 125/71 10/11/18 05:41 101 H 21 125/71 10/11/18 05:31 95 H 29 H 125/71 10/11/18 05:21 101 H 21 125/71 10/11/18 05:11 100 H 25 H 125/71 10/11/18 05:00 96 H 24 125/71 10/11/18 04:51 92 H 21 117/68 / 04:41 92 H 19 117/68 10/11/18 04:31 96 H 17 117/68 10/11/18 04:21 94 H 19 117/68 10/11/18 04:10 93 H 20 117/68 05/19/ 04:00 98.6 F 98 H 92 H 24 117/68 05/19/ 03:50 96 H 25 H 116/73 05/19/ 03:41 97 H 26 H 116/73 05// 03:31 92 H 24 116/73 05/19/ 03:21 94 H 30 H 116/73 05/ 03:11 94 H 29 H 116/73 10/11/18 03:00 94 H 23 116/73 10/11/18 02:51 96 H 22 104/55 05/ 02:41 93 H 21 104/55 05/ 02:31 92 H 19 104/55 10/11/18 02:21 94 H 24 104/55 10/11/18 02:11 91 H 20 104/55 10/11/18 02:01 97 H 28 H 104/55 10/11/18 01:51 92 H 21 111/66 10/11/18 01:41 99 H 22 111/66 / 01:30 92 H 22 111/66 10/11/18 01:21 91 H 36 H 111/66 10/11/ 01:11 90 20 111/66 // 01:00 90 23 111/66 10/11/18 00:51 92 H 24 119/73 05// 00:41 92 H 39 H 119/73 05// 00:31 99 H 25 H 119/73 05/19/ 00:21 102 H 26 H 119/73 05/19/19 00:11 98 H 26 H 119/73 05/19/19 00:00 99.6 F 97 H 96 H 27 H 119/73 05/18/19 23:52 96 H 25 H 116/67 05/18/19 23:51 97 H 24 116/67 05/18/19 23:41 94 H 20 116/67 05/18/19 23:30 96 H 22 116/67 05/18/19 23:20 98 H 26 H 116/67 05/18/19 23:11 93 H 22 116/67 05/18/19 23:00 92 H 42 H 116/67 05/18/19 22:51 92 H 21 130/72 05/18/19 22:41 97 H 24 130/72 05/18/19 22:31 100 H 17 130/72 05/18/19 22:21 93 H 22 130/72 05/18/19 22:11 100 H 30 H 130/72 05/18/19 22:00 103 H 30 H 130/72 05/18/19 21:51 103 H 29 H 104/53 05/18/19 21:41 101 H 25 H 104/53 05/18/19 21:31 96 H 24 104/53 05/18/19 21:22 107 H 27 H 05/18/19 21:20 101 H 25 H 95/50 05/18/19 21:11 104 H 25 H 104/53 05/18/19 21:06 105 H 27 H 05/18/19 21:01 109 H 33 H 104/53 05/18/19 20:51 105 H 24 95/50 05/18/19 20:41 99 H 24 95/50 05/18/19 20:31 109 H 24 95/50 05/18/19 20:21 103 H 27 H 95/50 05/18/19 20:11 104 H 26 H 95/50 05/18/19 20:01 100 H 24 95/50 05/18/19 20:00 100.5 F H 101 H 25 H 05/18/19 19:51 98 H 17 115/66 05/18/19 19:41 98 H 21 115/66 05/18/19 19:31 103 H 26 H 115/66 05/18/19 19:21 105 H 25 H 115/66 05/18/19 19:11 102 H 25 H 115/66 05/18/19 19:00 99 H 22 115/66 05/18/19 18:51 96 H 22 138/66 05/18/19 18:41 98 H 24 138/66 05/18/19 18:31 99 H 27 H 138/66 05/18/19 18:21 111 H 29 H 138/66 05/18/19 18:11 100 H 27 H 138/66 05/18/19 18:00 100 H 25 H 138/66 05/18/19 17:51 106 H 26 H 131/82 05/18/19 17:41 106 H 30 H 131/82 05/18/19 17:31 108 H 25 H 131/82 05/18/19 17:21 109 H 25 H 131/82 05/18/19 17:11 101 H 16 131/82 0518/19 17:00 97 H 24 131/82 05/18/19 16:51 94 H 18 112/67 0518/19 16:41 106 H 23 112/67 05/18/19 16:31 97 H 25 H 112/67 05/18/19 16:21 101 H 26 H 112/67 0518/19 16:11 99 H 17 112/67 0518/19 16:01 102 H 27 H 112/67 05/18/19 16:00 97.9 F 100 H 20 0518/ 15:56 106 H 20 10/10/18 15:51 94 H 25 H 112/67 0518/19 15:41 95 H 25 H 112/67 0518/ 15:31 95 H 24 112/67 0518/ 15:28 95 H 22 Pulse Ox 10/11/18 13:31 94 10/11/18 13:21 97 10/11/18 13:11 94 10/11/18 13:00 94 10/11/18 12:51 94 10/11/18 12:41 93 10/11/18 12:31 93 10/11/18 12:21 94 10/11/18 12:11 93 10/11/18 12:01 94 10/11/18 12:00 10/11/18 11:51 93 10/11/18 11:41 93 10/11/18 11:31 92 10/11/18 11:21 92 10/11/18 11:11 93 10/11/18 11:00 10/11/18 10:51 91 10/11/18 10:41 91 10/11/18 10:31 95 10/11/18 10:21 94 10/11/18 10:11 95 10/11/18 10:00 96 10/11/18 09:51 97 10/11/18 09:41 94 10/11/18 09:35 10/11/18 09:31 94 10/11/18 09:22 05 09:21 94 10/11/18 09:11 94 10/11/18 09:00 94 05/19/19 08:51 96 0519 08:41 94 051919 08:31 94 0519 08:21 95 0519 08:11 97 05 08:00 95 05 07:51 95 05 07:41 96 05 07:31 95 0519 07:21 89 05 07:11 95 05 07:00 95 05 06:51 95 05 06:41 96 05 06:31 96 05 06:21 95 05 06:11 97 05 06:01 94 05 05:51 94 05 05:47 05 05:41 97 05 05:31 95 05 05:21 96 05 05:11 96 05 05:00 95 10/11/18 04:51 96 05 04:41 93 05 04:31 92 05 04:21 95 05 04:10 95 05 04:00 94 05 03:50 94 05 03:41 96 05 03:31 97 05 03:21 97 05 03:11 95 05 03:00 97 05 02:51 95 05 02:41 95 0519 02:31 94 05 02:21 94 05 02:11 94 05 02:01 97 05 01:51 95 0519 01:41 97 05 01:30 94 0519 01:21 91 05 01:11 96 05 01:00 96 0519 00:51 96 0519 00:41 96 0519 00:31 98 051919 00:21 96 0519 00:11 96 0519 00:00 95 051819 23:52 95 05/18/19 23:51 95 05/18/19 23:41 96 05/18/19 23:30 96 05/18/19 23:20 94 05/18/19 23:11 96 05/18/19 23:00 95 05/18/19 22:51 96 05/18/19 22:41 95 05/18/19 22:31 96 05/18/19 22:21 96 05/18/19 22:11 100 05/18/19 22:00 95 05/18/19 21:51 95 05/18/19 21:41 96 05/18/19 21:31 96 05/18/19 21:22 05/18/19 21:20 96 05/18/19 21:11 96 05/18/19 21:06 97 05/18/19 21:01 97 05/18/19 20:51 96 05/18/19 20:41 93 05/18/19 20:31 93 05/18/19 20:21 96 05/18/19 20:11 95 05/18/19 20:01 97 05/18/19 20:00 96 05/18/19 19:51 97 05/18/19 19:41 97 05/18/19 19:31 98 05/18/19 19:21 97 05/18/19 19:11 99 05/18/19 19:00 96 05/18/19 18:51 96 05/18/19 18:41 98 05/18/19 18:31 96 05/18/19 18:21 97 05/18/19 18:11 94 05/18/19 18:00 92 05/18/19 17:51 96 05/18/19 17:41 86 05/18/19 17:31 88 05/18/19 17:21 79 L 05/18/19 17:11 95 05/18/19 17:00 93 05/18/19 16:51 95 05/18/19 16:41 96 05/18/19 16:31 96 05/18/19 16:21 99 05/18/19 16:11 97 05/18/19 16:01 95 05/18/19 16:00 91 05/18/19 15:56 05/18/19 15:51 95 05/18/19 15:41 94 05/18/19 15:31 94 05/18/19 15:28 - Physical Examination General: No Apparent Distress HEENT: Positive: PERRL Neck: Positive: neck supple Cardiac: Positive: Reg Rate and Rhythm Lungs: Positive: Decreased Breath Sounds Neuro: Positive: Grossly Intact Abdomen: Positive: Soft Skin: Positive: Clear Extremities: Absent: edema - Labs and Meds CBC 10/11/18 Range/Units 03:48 Hgb 10.9 L (11.8-15.2) gm/dl Hct 32.8 L (35.5-45.6) % Plt Count 203 (140-440) K/mm3 - Imaging and Cardiology EKG: image reviewed
[2018-10-11] MEDS: TYLENOL PO PRN (20:24)
--- NOTE | 2018-10-11 21:10 | Progress Note ---
Assessment and Plan Patient awake . Patient is on vapotherm, FIO2 50%, O2 saturation 94%. No acute respiratory distress. Angio CT of chest reported small bilateral pulmonary emboli. Patient is on I/V heparin. - Patient Problems (1) Pulmonary embolism Current Visit: Yes Status: Acute Plan to address problem: Patient is on I/V heparin. (2) Pleural effusion, bilateral Current Visit: Yes Status: Acute Plan to address problem: Ultrasound of chest probably on friday. (3) Acute respiratory failure with hypoxia Current Visit: Yes Status: Acute Plan to address problem: O2 supplemenation , Patient is on vapotherm, FIO2 50%. (4) COPD exacerbation Current Visit: No Status: Acute Plan to address problem: O2 supplementation, FIO2 50%.on Vapotherm Albuterol/atrovent aerosol treatments q 6 hours. Patient is on I/V Heparin. Continue protonix. (5) Atrial flutter Current Visit: Yes Status: Acute Plan to address problem: Patient is on I/V Heparin. Management as per cardiology. (6) CHF (congestive heart failure) Current Visit: Yes Status: Acute Plan to address problem: Management as per cardiology. (7) GERD (gastroesophageal reflux disease) Current Visit: No Status: Chronic Qualifiers: Esophagitis presence: without esophagitis Qualified Code(s): K21.9 - Gastro-esophageal reflux disease without esophagitis Plan to address problem: Continue Protonix. (8) Hypertension Current Visit: No Status: Chronic Qualifiers: Hypertension type: essential hypertension Qualified Code(s): I10 - Essent ial (primary) hypertension Plan to address problem: Management as per primary care. Subjective Date of service: 10/11/18 Interval history: Patient awake . Patient is on vapotherm, FIO2 50%, O2 saturation 94%. No acute respiratory distress. Angio CT of chest reported small bilateral pulmonary emboli. Patient is on I/V heparin. Objective Vital Signs - 12hr 10/11/18 10/11/18 10/11/18 09:11 09:21 09:22 Temperature Pulse Rate 96 H 96 H Pulse Rate [ 107 H Bilateral Throughout] Pulse Rate [ From Monitor] Respiratory 20 24 Rate Respiratory 28 H Rate [Bilateral Throughout] Blood Pressure 137/75 137/75 O2 Sat by Pulse 94 94 Oximetry 10/11/18 10/11/18 10/11/18 09:31 09:35 09:41 Temperature Pulse Rate 101 H 100 H Pulse Rate [ 108 H Bilateral Throughout] Pulse Rate [ From Monitor] Respiratory 28 H 26 H Rate Respiratory 18 Rate [Bilateral Throughout] Blood Pressure 137/75 137/75 O2 Sat by Pulse 94 94 Oximetry 10/11/18 10/11/18 10/11/18 09:51 10:00 10:11 Temperature Pulse Rate 103 H 97 H 97 H Pulse Rate [ Bilateral Throughout] Pulse Rate [ From Monitor] Respiratory 26 H 20 26 H Rate Respiratory Rate [Bilateral Throughout] Blood Pressure 137/75 139/76 137/75 O2 Sat by Pulse 97 96 95 Oximetry 10/11/18 10/11/18 10/11/18 10:21 10:31 10:41 Temperature Pulse Rate 97 H 104 H 97 H Pulse Rate [ Bilateral Throughout] Pulse Rate [ From Monitor] Respiratory 39 H 26 H 21 Rate Respiratory Rate [Bilateral Throughout] Blood Pressure 137/75 137/75 137/75 O2 Sat by Pulse 94 95 91 Oximetry 10/11/18 10/11/18 10/11/18 10:51 11:00 11:11 Temperature Pulse Rate 97 H 96 H 96 H Pulse Rate [ Bilateral Throughout] Pulse Rate [ From Monitor] Respiratory 20 21 21 Rate Respiratory Rate [Bilateral Throughout] Blood Pressure 137/75 118/71 118/71 O2 Sat by Pulse 91 93 Oximetry 10/11/18 10/11/18 10/11/18 11:21 11:31 11:41 Temperature Pulse Rate 97 H 96 H 97 H Pulse Rate [ Bilateral Throughout] Pulse Rate [ From Monitor] Respiratory 21 20 20 Rate Respiratory Rate [Bilateral Throughout] Blood Pressure 118/71 118/71 118/71 O2 Sat by Pulse 92 92 93 Oximetry 10/11/18 10/11/18 10/11/18 11:51 12:00 12:01 Temperature 98.6 F Pulse Rate 100 H 104 H Pulse Rate [ Bilateral Throughout] Pulse Rate [ 92 H From Monitor] Respiratory 22 21 27 H Rate Respiratory Rate [Bilateral Throughout] Blood Pressure 118/71 126/79 O2 Sat by Pulse 93 92 94 Oximetry 10/11/18 10/11/18 10/11/18 12:11 12:21 12:31 Temperature Pulse Rate 101 H 102 H 106 H Pulse Rate [ Bilateral Throughout] Pulse Rate [ From Monitor] Respiratory 26 H 26 H 25 H Rate Respiratory Rate [Bilateral Throughout] Blood Pressure 118/71 118/71 118/71 O2 Sat by Pulse 93 94 93 Oximetry 10/11/18 10/11/18 10/11/18 12:41 12:51 13:00 Temperature Pulse Rate 105 H 98 H 98 H Pulse Rate [ Bilateral Throughout] Pulse Rate [ From Monitor] Respiratory 27 H 25 H 27 H Rate Respiratory Rate [Bilateral Throughout] Blood Pressure 118/71 118/71 123/80 O2 Sat by Pulse 93 94 94 Oximetry 10/11/18 10/11/18 10/11/18 13:11 13:21 13:31 Temperature Pulse Rate 100 H 102 H 102 H Pulse Rate [ Bilateral Throughout] Pulse Rate [ From Monitor] Respiratory 24 29 H 26 H Rate Respiratory Rate [Bilateral Throughout] Blood Pressure 126/79 126/79 126/79 O2 Sat by Pulse 94 97 94 Oximetry 10/11/18 10/11/18 10/11/18 13:41 13:51 14:00 Temperature Pulse Rate 103 H 99 H 103 H Pulse Rate [ Bilateral Throughout] Pulse Rate [ From Monitor] Respiratory 27 H 22 28 H Rate Respiratory Rate [Bilateral Throughout] Blood Pressure 126/79 126/79 128/72 O2 Sat by Pulse 93 95 91 Oximetry 10/11/18 10/11/18 10/11/18 14:11 14:21 14:31 Temperature Pulse Rate 102 H 105 H 105 H Pulse Rate [ Bilateral Throughout] Pulse Rate [ From Monitor] Respiratory 29 H 31 H 25 H Rate Respiratory Rate [Bilateral Throughout] Blood Pressure 128/72 128/72 128/72 O2 Sat by Pulse 94 93 93 Oximetry 10/11/18 10/11/18 10/11/18 14:41 14:51 15:00 Temperature Pulse Rate 104 H 102 H 102 H Pulse Rate [ Bilateral Throughout] Pulse Rate [ From Monitor] Respiratory 28 H 29 H 22 Rate Respiratory Rate [Bilateral Throughout] Blood Pressure 128/72 128/72 140/77 O2 Sat by Pulse 93 93 92 Oximetry 10/11/18 10/11/18 10/11/18 15:11 15:21 15:31 Temperature Pulse Rate 104 H 105 H Pulse Rate [ Bilateral Throughout] Pulse Rate [ From Monitor] Respiratory 28 H 30 H Rate Respiratory Rate [Bilateral Throughout] Blood Pressure 140/77 140/77 140/77 O2 Sat by Pulse 95 93 94 Oximetry 10/11/18 10/11/18 10/11/18 15:41 15:51 16:00 Temperature 98.3 F Pulse Rate 109 H Pulse Rate [ Bilateral Throughout] Pulse Rate [ 92 H From Monitor] Respiratory 25 H 21 Rate Respiratory Rate [Bilateral Throughout] Blood Pressure 140/77 140/77 O2 Sat by Pulse 89 86 92 Oximetry 10/11/18 10/11/18 10/11/18 16:01 16:05 16:11 Temperature Pulse Rate Pulse Rate [ 105 H Bilateral Throughout] Pulse Rate [ From Monitor] Respiratory Rate Respiratory 18 Rate [Bilateral Throughout] Blood Pressure 111/78 111/78 O2 Sat by Pulse 95 91 Oximetry 10/11/18 10/11/18 10/11/18 16:19 16:20 16:21 Temperature Pulse Rate Pulse Rate [ 105 H Bilateral Throughout] Pulse Rate [ From Monitor] Respiratory Rate Respiratory 18 Rate [Bilateral Throughout] Blood Pressure 111/78 O2 Sat by Pulse 91 93 Oximetry 10/11/18 10/11/18 10/11/18 16:31 16:41 16:51 Temperature Pulse Rate Pulse Rate [ Bilateral Throughout] Pulse Rate [ From Monitor] Respiratory Rate Respiratory Rate [Bilateral Throughout] Blood Pressure 111/78 111/78 111/78 O2 Sat by Pulse 90 91 95 Oximetry 10/11/18 10/11/18 10/11/18 17:00 17:11 17:21 Temperature Pulse Rate Pulse Rate [ Bilateral Throughout] Pulse Rate [ From Monitor] Respiratory Rate Respiratory Rate [Bilateral Throughout] Blood Pressure 122/73 122/73 122/73 O2 Sat by Pulse 95 92 92 Oximetry 10/11/18 10/11/18 10/11/18 17:31 17:41 17:51 Temperature Pulse Rate Pulse Rate [ Bilateral Throughout] Pulse Rate [ From Monitor] Respiratory Rate Respiratory Rate [Bilateral Throughout] Blood Pressure 122/73 122/73 122/73 O2 Sat by Pulse 91 91 92 Oximetry 10/11/18 10/11/18 10/11/18 18:00 18:11 18:21 Temperature Pulse Rate Pulse Rate [ Bilateral Throughout] Pulse Rate [ From Monitor] Respiratory Rate Respiratory Rate [Bilateral Throughout] Blood Pressure 137/79 137/79 137/79 O2 Sat by Pulse 96 94 91 Oximetry 10/11/18 10/11/18 10/11/18 18:31 18:41 18:51 Temperature Pulse Rate Pulse Rate [ Bilateral Throughout] Pulse Rate [ From Monitor] Respiratory Rate Respiratory Rate [Bilateral Throughout] Blood Pressure 137/79 137/79 137/79 O2 Sat by Pulse 94 94 93 Oximetry 10/11/18 10/11/18 10/11/18 19:00 19:11 19:12 Temperature Pulse Rate Pulse Rate [ 96 H Bilateral Throughout] Pulse Rate [ From Monitor] Respiratory Rate Respiratory 18 Rate [Bilateral Throughout] Blood Pressure 108/52 108/52 O2 Sat by Pulse 94 96 96 Oximetry 10/11/18 10/11/18 10/11/18 19:21 19:24 19:31 Temperature Pulse Rate Pulse Rate [ 97 H Bilateral Throughout] Pulse Rate [ From Monitor] Respiratory Rate Respiratory 18 Rate [Bilateral Throughout] Blood Pressure 108/52 108/52 O2 Sat by Pulse 95 93 Oximetry 10/11/18 10/11/18 10/11/18 19:41 19:42 19:51 Temperature Pulse Rate 99 H Pulse Rate [ Bilateral Throughout] Pulse Rate [ 96 H From Monitor] Respiratory 22 27 H Rate Respiratory Rate [Bilateral Throughout] Blood Pressure 108/52 108/52 O2 Sat by Pulse 93 93 93 Oximetry 10/11/18 20:00 Temperature 99.5 F Pulse Rate 101 H Pulse Rate [ Bilateral Throughout] Pulse Rate [ From Monitor] Respiratory 21 Rate Respiratory Rate [Bilateral Throughout] Blood Pressure 127/72 O2 Sat by Pulse 92 Oximetry Constitutional: no acute distress, alert Eyes: non-icteric ENT: oropharynx moist Neck: supple, no lymphadenopathy Ascultation: Bilateral: diminished breath sounds Cardiovascular: regular rate and rhythm Gastrointestinal: normoactive bowel sounds, soft Integumentary: normal Extremities: no cyanosis, no edema Neurologic: normal mental status, non-focal exam, pupils equal and round, CN II- XII normal Psychiatric: mood appropriate CBC and BMP: 10/11/18 03:48 10/10/18 03:01 ABG, PT/INR, D-dimer: ABG POC ABG pH 7.341 (7.35-7.45) L 10/09/18 14:52 POC ABG pCO2 36.2 (35-45) 10/09/18 14:52 POC ABG pO2 62 (80-105) L 10/09/18 14:52 POC ABG HCO3 19.6 (22-26 mml/L) 10/09/18 14:52 POC ABG Total CO2 21 (23-27mmol/L) 10/09/18 14:52 POC ABG O2 Sat 90 10/09/18 14:52 PT/INR, D-dimer PT 14.8 Sec. (12.2-14.9) 10/09/18 00:54 INR 1.09 (0.87-1.13) 10/09/18 00:54 532.59 ng/mlDDU (0-234) H 10/08/18 21:01 Abnormal lab findings: Abnormal Labs 10/08/18 10/08/18 10/08/18 20:40 20:40 21:01 WBC Hgb Hct Lymph % (Auto) [place] # Seg Neutrophils % 74.6 H Seg Neutrophils # 7.9 H D-Dimer 532.59 H POC ABG pH POC ABG pO2 Sodium 132 L Chloride 96.5 L Creatinine 0.7 L Glucose 109 H POC Glucose AST 45 H Total Creatine Kinase CK-MB (CK-2) NT-Pro-B Natriuret Pep 10/08/18 10/09/18 10/09/18 21:01 02:12 05:24 WBC Hgb Hct Lymph % (Auto) [place] # Seg Neutrophils % Seg Neutrophils # D-Dimer POC ABG pH POC ABG pO2 Sodium Chloride Creatinine Glucose POC Glucose 125 H AST Total Creatine Kinase 620 H CK-MB (CK-2) 12.0 H NT-Pro-B Natriuret Pep 1527 H 10/09/18 10/09/18 10/09/18 07:47 08:02 11:59 WBC Hgb Hct Lymph % (Auto) [place] # Seg Neutrophils % Seg Neutrophils # D-Dimer POC ABG pH POC ABG pO2 Sodium Chloride Creatinine Glucose POC Glucose 130 H 150 H AST Total Creatine Kinase 541 H CK-MB (CK-2) 10.1 H NT-Pro-B Natriuret Pep 10/09/18 10/10/18 10/10/18 14:52 03:01 03:01 WBC 13.5 H Hgb Hct Lymph % (Auto) 11.5 L [place] # 0.9 H Seg Neutrophils % 81.3 H Seg Neutrophils # 11.0 H D-Dimer POC ABG pH 7.341 L POC ABG pO2 62 L Sodium 133 L Chloride 95.7 L Creatinine 0.7 L Glucose 140 H POC Glucose AST Total Creatine Kinase CK-MB (CK-2) NT-Pro-B Natriuret Pep 10/10/18 10/11/18 06:46 03:48 WBC Hgb 10.9 L Hct 32.8 L Lymph % (Auto) [place] # Seg Neutrophils % Seg Neutrophils # D-Dimer POC ABG pH POC ABG pO2 Sodium Chloride Creatinine Glucose POC Glucose 139 H AST Total Creatine Kinase CK-MB (CK-2) NT-Pro-B Natriuret Pep
[2018-10-11] MEDS: PRAVACHOL PO SCH (21:23)
[2018-10-12] MEDS ORDERED: LASIX IV ONE (00:11)
[2018-10-12] MEDS: HEPARIN/ 0.45% NACL-25,000 UNIT/500 ML 25,000 UNIT/500 ML BAG IV SCH ×2 (00:15→19:13)
[2018-10-12] MEDS: CARDIZEM PO SCH ×4 (00:16→19:13)
--- NOTE | 2018-10-12 08:03 | Progress Note ---
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 chronic systolic chf, ef 45 trial of lasix Atrial fibrillation with RVR and hypercoagulable state Chronic systolic CHF, ef 45 -Cardiology consult, echo, rate control per cardiology, on oral dilt, tsh and mg wnl Abdominal pain is nonspecific History of GERD, PPI CT abdomen and pelvis, shows no acute findings GI input appreciated Alcohol dependence and withdrawal CIWA protocol, IV fluids, Folate and thiamine Acute hypoxic respiratory failure cont oxygen supplementation, on high flow oxygen, repeat cxr in am, trial of lasix COPD, chronic and stable History Interval history: Review of systems Constitutional: No fevers, no joint pains CVS: No chest pain, mild orthopnea, no pedal edema GI: Abdominal pain is improved, no diarrhea, no vomiting Respiratory: c/o wheezing, no coughing, c.o of sob Hospitalist Physical - Physical exam Narrative exam: General.: no distress, nontoxic HEENT: Moist mucous membranes, extraocular muscles intact, no lymphadenopathy Neck: supple Cardiac: S1-S2 heard Lungs: diminished air entry, wheezing and basilar rales Abdomen: soft , nontender, nondistended, bowel sounds positive Extremities: no edema clubbing or cyanosis Skin: no rash or lesions Neurologic: no gross focal deficits Psych: calm, and cooperative - Constitutional Vitals: Temp Pulse Resp BP Pulse Ox 98.8 F 87 20 127/85 95 10/12/18 04:00 10/12/18 06:00 10/12/18 06:00 10/12/18 06:00 10/12/18 06:00 General appearance: Present: no acute distress Results - Labs CBC & Chem 7: 10/11/18 03:48 10/10/18 03:01 Labs: Laboratory Last Values WBC 13.5 K/mm3 (4.5-11.0) H 10/10/18 03:01 RBC 3.87 M/mm3 (3.65-5.03) 10/10/18 03:01 Hgb 10.9 gm/dl (11.8-15.2) L 10/11/18 03:48 Hct 32.8 % (35.5-45.6) L 10/11/18 03:48 MCV 92 fl (84-94) 10/10/18 03:01 MCH 31 pg (28-32) 10/10/18 03:01 MCHC 34 % (32-34) 10/10/18 03:01 RDW 14.2 % (13.2-15.2) 10/10/18 03:01 Plt Count 203 K/mm3 (140-440) 10/11/18 03:48 Lymph % (Auto) 11.5 % (13.4-35.0) L 10/10/18 03:01 [place] % (Auto) 6.9 % (0.0-7.3) 10/10/18 03:01 Eos % (Auto) 0.1 % (0.0-4.3) 10/10/18 03:01 Baso % (Auto) 0.2 % (0.0-1.8) 10/10/18 03:01 Lymph # 1.6 K/mm3 (1.2-5.4) 10/10/18 03:01 [place] # 0.9 K/mm3 (0.0-0.8) H 10/10/18 03:01 Eos # 0.0 K/mm3 (0.0-0.4) 10/10/18 03:01 Baso # 0.0 K/mm3 (0.0-0.1) 10/10/18 03:01 Seg Neutrophils % 81.3 % (40.0-70.0) H 10/10/18 03:01 Seg Neutrophils # 11.0 K/mm3 (1.8-7.7) H 10/10/18 03:01 PT 14.8 Sec. (12.2-14.9) 10/09/18 00:54 INR 1.09 (0.87-1.13) 10/09/18 00:54 APTT 32.8 Sec. (24.2-36.6) 10/09/18 00:54 532.59 ng/mlDDU (0-234) H 10/08/18 21:01 Heparin Anti-Xa Level 0.50 U.I./ml (0.3-0.7) 10/10/18 08:16 POC ABG pH 7.341 (7.35-7.45) L 10/09/18 14:52 POC ABG pCO2 36.2 (35-45) 10/09/18 14:52 POC ABG pO2 62 (80-105) L 10/09/18 14:52 POC ABG HCO3 19.6 (22-26 mml/L) 10/09/18 14:52 POC ABG Total CO2 21 (23-27mmol/L) 10/09/18 14:52 POC ABG O2 Sat 90 10/09/18 14:52 POC ABG Base Excess -6 ((-2) - (+3)mmol/L) 10/09/18 14:52 36 % 10/09/18 14:52 Sodium 133 mmol/L (137-145) L 10/10/18 03:01 Potassium 4.5 mmol/L (3.6-5.0) 10/10/18 03:01 Chloride 95.7 mmol/L (98-107) L 10/10/18 03:01 Carbon Dioxide 22 mmol/L (22-30) 10/10/18 03:01 20 mmol/L 10/10/18 03:01 BUN 15 mg/dL (9-20) 10/10/18 03:01 0.7 mg/dL (0.8-1.5) L 10/10/18 03:01 Estimated GFR > 60 ml/min 10/10/18 03:01 21 % 10/10/18 03:01 Glucose 140 mg/dL (75-100) H 10/10/18 03:01 POC Glucose 139 (70-105) H 10/10/18 06:46 Calcium 8.8 mg/dL (8.4-10.2) 10/10/18 03:01 Magnesium 2.00 mg/dL (1.7-2.3) 10/09/18 10:44 0.50 mg/dL (0.1-1.2) 10/08/18 20:40 AST 45 units/L (5-40) H 10/08/18 20:40 ALT 43 units/L (7-56) 10/08/18 20:40 58 units/L (35-129) 10/08/18 20:40 541 units/L (55-170) H 10/09/18 07:47 CK-MB (CK-2) 10.1 ng/mL (0.0-4.0) H 10/09/18 07:47 CK-MB (CK-2) Rel Index 1.8 (0-4) 10/09/18 07:47 0.010 ng/mL (0.00-0.029) 10/09/18 07:47 NT-Pro-B Natriuret Pep 1527 pg/mL (0-900) H 10/08/18 21:01 7.2 g/dL (6.3-8.2) 10/08/18 20:40 4.2 g/dL (3.9-5) 10/08/18 20:40 1.4 % 10/08/18 20:40 17 units/L (13-60) 10/08/18 20:40 TSH 1.230 mlU/mL (0.270-4.200) 10/09/18 10:44 Straw (Yellow) 10/09/18 00:37 Clear (Clear) 10/09/18 00:37 7.0 (5.0-7.0) 10/09/18 00:37 Ur Specific [place] 1.021 (1.003-1.030) 10/09/18 00:37 <15 mg/dl mg/dL (Negative) 10/09/18 00:37 Neg mg/dL (Negative) 10/09/18 00:37 Neg mg/dL (Negative) 10/09/18 00:37 Neg (Negative) 10/09/18 00:37 Neg (Negative) 10/09/18 00:37 Neg (Negative) 10/09/18 00:37 < 2.0 mg/dL (<2.0) 10/09/18 00:37 Ur Leukocyte Esterase Neg (Negative) 10/09/18 00:37 < 1.0 /HPF (0.0-6.0) 10/09/18 00:37 1.0 /HPF (0.0-6.0) 10/09/18 00:37 Active Medications - Current Medications Current Medications: Generic Name Dose Route Start Last Admin Trade Name Freq PRN Reason Stop Dose Admin Acetaminophen 650 mg 10/09/18 01:46 10/11/18 20:24 Tylenol PO 650 mg Q4H PRN Administration Pain MILD(1-3)/Fever >100.5/[place]CK[place] Albuterol 2.5 mg 10/09/18 12:37 Proventil IH Q6HRT PRN Shortness Of Breath Albuterol/Ipratropium 1 ampul 10/10/18 08:00 10/11/18 19:09 Duoneb *Not For Prn Use* IH 1 ampul TIDRT DEIDRA Administration Amlodipine Besylate 5 mg 10/09/18 13:00 10/11/18 09:29 Norvasc PO 5 mg QDAY DEIDRA Administration Dextrose 50 ml 10/09/18 04:38 D50w (25gm) Syringe IV PRN PRN Hypoglycemia Diltiazem HCl 60 mg 10/09/18 09:00 10/12/18 05:34 Cardizem PO 60 mg Q6HR DEIDRA Administration Folic Acid 1 mg 10/09/18 11:00 10/11/18 09:29 Folvite PO 1 mg QDAY DEIDRA Administration Hydralazine HCl 10 mg 10/09/18 15:17 Apresoline IV Q4HR PRN BP >160/100 Heparin Sodium/Sodium Chloride 25,000 unit in 500 mls @ 30 mls/hr 10/09/18 01:00 10/12/18 00:15 Heparin/ 0.45% Nacl-25,000 Unit/500 Ml IV 1,500 units/hr TITR DEIDRA 30 mls/hr Administration Protocol 1,500 UNITS/HR Diltiazem HCl 100 mg in 100 mls @ 5 mls/hr 10/09/18 09:00 Cardizem/D5w 100mg/100ml IV TITR DEIDRA Protocol 5 MG/HR Lisinopril 10 mg 10/09/18 13:00 10/11/18 09:29 Zestril PO 10 mg QDAY DEIDRA Administration Lorazepam 1 mg 10/09/18 02:16 Ativan IV Q1HR PRN CIWA-Ar 8-15 Metoprolol Succinate 25 mg 10/09/18 13:00 10/11/18 09:35 Toprol Xl PO 25 mg QDAY DEIDRA Administration Ondansetron HCl 4 mg 10/09/18 01:46 Zofran IV Q8H PRN Nausea And Vomiting Pantoprazole Sodium 40 mg 10/09/18 11:00 10/11/18 09:29 Protonix PO 40 mg QDAY DEIDRA Administration Pravastatin Sodium 10 mg 10/09/18 22:00 10/11/18 21:23 Pravachol PO 10 mg QHS DEIDRA Administration Sodium Chloride 10 ml 10/09/18 10:00 10/11/18 23:00 Sodium Chloride Flush Syringe 10 Ml IV 10 ml BID DEIDRA Administration Sodium Chloride 10 ml 10/09/18 01:46 Sodium Chloride Flush Syringe 10 Ml IV PRN PRN LINE FLUSH Thiamine HCl 100 mg 10/09/18 11:00 10/11/18 09:29 Vitamin B-1 PO 100 mg QDAY DEIDRA Administration Nutrition/Malnutrition Assess - Dietary Evaluation Nutrition/Malnutrition Findings: Nutrition Notes Start: 10/09/18 14:34 Freq: Status: Active Protocol: Document 10/10/18 15:18 RM (Rec: 10/10/18 15:21 RM [id number]) Nutrition Notes Initial or Follow up Assessment Current Diagnosis COPD,Diabetes,Hypertension, Heart Failure,Hyperlipidemia Other Pertinent Diagnosis Abdominal pain, N/V, Alcohol abuse, GERD Current Diet Cardiac Labs/Tests Reviewed Pertinent Medications Reviewed Height 6 ft Weight 104.1 kg [place] Body Weight (kg) 80.90 BMI 31.1 Subjective/Other Information Pt daughter present at time of visit. Reviewed DM diet education. Gave handout. Burn Absent Trauma Absent #1 Nutrition Diagnosis Food and nutrition-related knowledge deficit Etiology lack of prior education As Evidenced by Signs and Symptoms pt and pt daughter desire for education Nutrition Intervention Teaching Recipient Family Learning Readiness Good Teaching Methods Discussion,Handout Response to Teaching Verbalize understanding Education Handouts Provided Carbohydrate counting for people with diabetes Barriers to Learning No Barriers RD phone number provided Yes Patient aware of follow up options Yes Goal #1 Utilize carbohydrate counting Revisit per MD consult or patient Sign Off request:
[2018-10-12] MEDS: PROTONIX PO SCH (09:11)
[2018-10-12] MEDS: NORVASC PO SCH (09:11)
[2018-10-12] MEDS: FOLVITE PO SCH (09:11)
[2018-10-12] MEDS: VITAMIN B-1 PO SCH (09:11)
[2018-10-12] MEDS: TOPROL XL PO SCH (09:12)
[2018-10-12] MEDS: SODIUM CHLORIDE FLUSH SYRINGE 10 ML IV SCH ×2 (09:12→21:41)
[2018-10-12] MEDS: ZESTRIL PO SCH (09:12)
--- NOTE | 2018-10-12 09:18 | XRay Report ---
AP CHEST: HISTORY: Short of breath Borderline heart size, mild pulmonary venous congestion and small right pleural effusion are identified. Mild improvement is demonstrated since 10/08/18 exam. The bony structures are grossly intact. IMPRESSION: Mild CHF, slightly improved.
--- NOTE | 2018-10-12 09:40 | Progress Note ---
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 Subjective Date of service: 10/12/18 Interval history: Patient is resting in bed comfortably, on high flow oxygen. He denies chest pain and shortness of breath. Objective Vital Signs Temp Pulse Pulse Pulse Resp Resp BP 10/12/18 09:12 90 111/81 10/12/18 09:11 90 111/81 10/12/18 08:55 98.4 F 10/12/18 06:00 87 20 127/85 10/12/18 05:51 87 21 116/67 10/12/18 05:41 88 22 116/67 10/12/18 05:34 88 116/87 10/12/18 05:31 91 H 23 116/67 05 05:21 83 19 116/67 10/12/18 05:11 82 20 116/67 05 05:00 87 22 116/67 10/12/18 04:51 91 H 25 H 114/63 05 04:41 83 16 114/63 05 04:31 85 17 114/63 10/12/18 04:21 81 15 114/63 05 04:11 87 19 114/63 10/12/18 04:00 98.8 F 82 88 19 114/63 05 03:51 82 18 138/77 05 03:41 87 18 138/77 05 03:31 86 21 138/77 05 03:21 89 21 138/77 05 03:11 92 H 20 138/77 05 03:00 94 H 23 138/77 05 02:51 102 H 25 H 133/79 05 02:41 91 H 14 133/79 05 02:31 83 18 133/79 05 02:21 89 23 133/79 05 02:11 85 21 133/79 05/20/ 02:04 94 H 05/20 02:00 88 22 133/79 05/20/ 01:51 89 22 127/75 05/20/ 01:41 85 20 127/75 05/20/19 01:31 87 22 127/75 05/20/ 01:21 90 24 127/75 05/20/19 01:11 84 17 127/75 05/20/ 01:00 85 18 127/75 05/20/ 00:51 85 19 114/75 05/20/19 00:41 85 19 114/75 05/20/ 00:31 86 21 114/75 05/20/ 00:30 26 H 10/12/18 00:21 92 H 24 114/75 05/20 00:16 90 114/75 05/20/ 00:11 86 22 114/75 05/20 00:05 87 22 114/75 05/20 00:00 98.3 F 88 88 18 114/75 10/11/18 23:51 83 19 118/77 05 23:41 86 22 118/77 05 23:31 86 19 118/77 05 23:21 87 21 118/77 05 23:11 85 23 118/77 10/11/18 23:00 83 26 H 118/77 10/11/18 22:51 81 17 109/67 10/11/18 22:40 82 20 109/67 10/11/18 22:31 88 16 109/67 05 22:21 84 21 109/67 10/11/18 22:11 83 19 109/67 / 22:04 84 10/11/18 22:00 84 21 109/67 05 21:51 88 24 125/79 05/ 21:41 91 H 15 125/79 05/ 21:31 90 14 125/79 05/ 21:21 91 H 24 125/79 05/ 21:11 96 H 27 H 125/79 05/ 21:00 89 18 125/79 05/ 20:51 92 H 23 127/72 05/ 20:41 96 H 23 127/72 05/19/19 20:31 99 H 23 127/72 05/19/19 20:21 96 H 22 127/72 05//19 20:11 99 H 19 127/72 05/19/19 20:00 99.5 F 101 H 21 127/72 05/19/19 19:51 99 H 27 H 108/52 05/19/19 19:42 96 H 22 05// 19:41 108/52 05/19/19 19:31 108/52 05//19 19:24 97 H 18 05 19:21 108/52 05/19 19:12 05 19:11 96 H 18 108/52 05/ 19:00 108/52 05 18:51 137/79 05// 18:41 137/79 05 18:31 137/79 05//19 18:21 137/79 05 18:11 137/79 05 18:00 137/79 05 17:51 122/73 05/19/19 17:41 122/73 05//19 17:31 122/73 05//19 17:21 122/73 05// 17:11 122/73 05// 17:00 122/73 05/ 16:51 111/78 05 16:41 111/78 05//19 16:31 111/78 05 16:21 111/78 05 16:20 10/11/18 16:19 105 H 18 10/11/18 16:11 111/78 05 16:05 105 H 18 10/11/18 16:01 111/78 05/ 16:00 98.3 F 92 H 21 10/11/18 15:51 140/77 05// 15:41 109 H 25 H 140/77 05//19 15:31 140/77 05// 15:21 105 H 30 H 140/77 05//19 15:11 104 H 28 H 140/77 05// 15:00 102 H 22 140/77 05// 14:51 102 H 29 H 128/72 05/ 14:41 104 H 28 H 128/72 / 14:31 105 H 25 H 128/72 05/ 14:21 105 H 31 H 128/72 10/11/18 14:11 102 H 29 H 128/72 10/11/18 14:00 103 H 28 H 128/72 10/11/18 13:51 99 H 22 126/79 10/11/18 13:41 103 H 27 H 126/79 10/11/18 13:31 102 H 26 H 126/79 10/11/18 13:21 102 H 29 H 126/79 / 13:11 100 H 24 126/79 / 13:00 98 H 27 H 123/80 10/11/18 12:51 98 H 25 H 118/71 10/11/18 12:41 105 H 27 H 118/71 10/11/18 12:31 106 H 25 H 118/71 10/11/18 12:21 102 H 26 H 118/71 10/11/18 12:11 101 H 26 H 118/71 10/11/18 12:01 104 H 27 H 126/79 10/11/18 12:00 98.6 F 92 H 21 10/11/18 11:51 100 H 22 118/71 10/11/18 11:41 97 H 20 118/71 10/11/18 11:31 96 H 20 118/71 10/11/18 11:21 97 H 21 118/71 10/11/18 11:11 96 H 21 118/71 10/11/18 11:00 96 H 21 118/71 10/11/18 10:51 97 H 20 137/75 10/11/18 10:41 97 H 21 137/75 10/11/18 10:31 104 H 26 H 137/75 10/11/18 10:21 97 H 39 H 137/75 10/11/18 10:11 97 H 26 H 137/75 10/11/18 10:00 97 H 20 139/76 10/11/18 09:51 103 H 26 H 137/75 10/11/18 09:41 100 H 26 H 137/75 Pulse Ox 10/12/18 09:12 10/12/18 09:11 10/12/18 08:55 05 06:00 95 05 05:51 96 05 05:41 95 05 05:34 05 05:31 96 05 05:21 96 05 05:11 96 05 05:00 99 05 04:51 94 05 04:41 97 05 04:31 97 10/12/18 04:21 97 10/12/18 04:11 97 05 04:00 97 10/12/18 03:51 98 05 03:41 98 10/12/18 03:31 96 05 03:21 96 05 03:11 93 10/12/18 03:00 96 10/12/18 02:51 73 L 10/12/18 02:41 94 10/12/18 02:31 94 10/12/18 02:21 94 10/12/18 02:11 94 10/12/18 02:04 10/12/18 02:00 94 10/12/18 01:51 94 05 01:41 94 10/12/18 01:31 93 05 01:21 94 05 01:11 95 10/12/18 01:00 95 05 00:51 95 05 00:41 94 05 00:31 94 05 00:30 97 10/12/18 00:21 94 10/12/18 00:16 10/12/18 00:11 92 05 00:05 92 05 00:00 96 05 23:51 93 05 23:41 94 05 23:31 92 05 23:21 93 05 23:11 91 05 23:00 93 05 22:51 92 05 22:40 93 05 22:31 92 05 22:21 93 05 22:11 93 05 22:04 05 22:00 90 05/19/19 21:51 91 05 21:41 92 05/19 21:31 92 05/19 21:21 95 05/ 21:11 93 05 21:00 91 0519 20:51 95 05/1919 20:41 92 05/1919 20:31 93 05/19 20:21 92 05 20:11 93 05 20:00 92 05 19:51 93 0519 19:42 93 05/ 19:41 93 05 19:31 93 05 19:24 05 19:21 95 05 19:12 96 05 19:11 96 05 19:00 94 05 18:51 93 05 18:41 94 05 18:31 94 05 18:21 91 05 18:11 94 05 18:00 96 05 17:51 92 05 17:41 91 05 17:31 91 05 17:21 92 05 17:11 92 05 17:00 95 05 16:51 95 05 16:41 91 05 16:31 90 05 16:21 93 05 16:20 91 05 16:19 10/11/18 16:11 91 05 16:05 05 16:01 95 05 16:00 92 05 15:51 86 05 15:41 89 05 15:31 94 05 15:21 93 05 15:11 95 05 15:00 92 05 14:51 93 05 14:41 93 05 14:31 93 05 14:21 93 05 14:11 94 05 14:00 91 05 13:51 95 05/ 13:41 93 05/19 13:31 94 10/11/18 13:21 97 10/11/18 13:11 94 10/11/18 13:00 94 10/11/18 12:51 94 10/11/18 12:41 93 10/11/18 12:31 93 10/11/18 12:21 94 10/11/18 12:11 93 10/11/18 12:01 94 10/11/18 12:00 92 10/11/18 11:51 93 10/11/18 11:41 93 10/11/18 11:31 92 10/11/18 11:21 92 10/11/18 11:11 93 10/11/18 11:00 10/11/18 10:51 91 10/11/18 10:41 91 10/11/18 10:31 95 10/11/18 10:21 94 10/11/18 10:11 95 10/11/18 10:00 96 10/11/18 09:51 97 10/11/18 09:41 94 - Physical Examination General: No Apparent Distress HEENT: Positive: PERRL Neck: Positive: trachea midline Cardiac: Positive: Reg Rate and Rhythm Lungs: Positive: Decreased Breath Sounds Neuro: Positive: Grossly Intact Extremities: Absent: edema
[2018-10-12] MEDS: DUONEB *Not for PRN Use IH SCH ×3 (10:34→19:20)
[2018-10-12] MEDS ORDERED: SOLU-Medrol IV ONE (10:59)
[2018-10-12] MEDS: LASIX IV SCH ×2 (13:22→19:13)
[2018-10-12] MEDS ORDERED: SOLU-Medrol IV SCH (14:00)
--- NOTE | 2018-10-12 17:12 | Progress Note ---
Assessment and Plan Patient awake . Patient is on vapotherm, FIO2 45%, O2 saturation 96%. BIPAP in room on standby. No acute respiratory distress. Angio CT of chest reported small bilateral pulmonary emboli. Patient is on I/V heparin. - Patient Problems (1) Pulmonary embolism Current Visit: Yes Status: Acute Plan to address problem: Patient is on I/V heparin. (2) Pleural effusion, bilateral Current Visit: Yes Status: Acute Plan to address problem: Ultrasound of chest probably on friday. (3) Acute respiratory failure with hypoxia Current Visit: Yes Status: Acute Plan to address problem: O2 supplementation, Patient is on vapotherm, FIO2 45%. Albuterol/Atrovent aerosol treatment q6 hrs Continue solumedrol Patient is on heparin drip Continue protonix (4) COPD exacerbation Current Visit: No Status: Acute Plan to address problem: O2 supplementation, FIO2 45%.on Vapotherm Albuterol/atrovent aerosol treatments q 6 hours. Patient is on I/V Heparin. Continue solumedrol Continue protonix. (5) Atrial flutter Current Visit: Yes Status: Acute Plan to address problem: Patient is on I/V Heparin. Management as per cardiology. (6) CHF (congestive heart failure) Current Visit: Yes Status: Acute Plan to address problem: Management as per cardiology. (7) GERD (gastroesophageal reflux disease) Current Visit: No Status: Chronic Qualifiers: Esophagitis presence: without esophagitis Qualified Code(s): K21.9 - Gastro-esophageal reflux disease without esophagitis Plan to address problem: Continue Protonix. (8) Hypertension Current Visit: No Status: Chronic Qualifiers: Hypertension type: essential hypertension Qualified Code(s): I10 - Essential (primary) hypertension Plan to address problem: Management as per primary care. Subjective Date of service: 10/12/18 Interval history: Patient awake . Patient is on vapotherm, FIO2 45%, O2 saturation 96%. BIPAP in room on standby. No acute respiratory distress. Angio CT of chest reported small bilateral pulmonary emboli. Patient is on I/V heparin. Objective - Exam Narrative Exam: General.: no distress, nontoxic HEENT: Moist mucous membranes, extraocular muscles intact, no lymphadenopathy Neck: supple Cardiac: S1-S2 heard Lungs: diminished air entry Abdomen: soft , nontender, nondistended, bowel sounds positive Extremities: no edema clubbing or cyanosis Skin: no rash or lesions Neurologic: no gross focal deficits Psych: calm, and cooperative Vital Signs - 12hr 10/12/18 10/12/18 10/12/18 05:11 05:21 05:31 Temperature Pulse Rate 82 83 91 H Pulse Rate [ Bilateral Throughout] Respiratory 20 19 23 Rate Respiratory Rate [Bilateral Throughout] Blood Pressure 116/67 116/67 116/67 O2 Sat by Pulse 96 96 96 Oximetry 10/12/18 10/12/18 10/12/18 05:34 05:41 05:51 Temperature Pulse Rate 88 88 87 Pulse Rate [ Bilateral Throughout] Respiratory 22 21 Rate Respiratory Rate [Bilateral Throughout] Blood Pressure 116/87 116/67 116/67 O2 Sat by Pulse 95 96 Oximetry 10/12/18 10/12/18 10/12/18 06:00 08:00 08:55 Temperature 98.4 F Pulse Rate 87 Pulse Rate [ 101 H Bilateral Throughout] Respiratory 20 Rate Respiratory 17 Rate [Bilateral Throughout] Blood Pressure 127/85 O2 Sat by Pulse 95 96 Oximetry 10/12/18 10/12/18 10/12/18 09:11 09:12 10:36 Temperature Pulse Rate 90 90 Pulse Rate [ 99 H Bilateral Throughout] Respiratory Rate Respiratory 18 Rate [Bilateral Throughout] Blood Pressure 111/81 111/81 O2 Sat by Pulse Oximetry 10/12/18 10/12/18 10/12/18 13:06 13:22 14:00 Temperature 98.4 F Pulse Rate 95 H Pulse Rate [ 97 H Bilateral Throughout] Respiratory Rate Respiratory 18 Rate [Bilateral Throughout] Blood Pressure 135/77 O2 Sat by Pulse Oximetry 10/12/18 10/12/18 16:06 16:35 Temperature 98.2 F Pulse Rate Pulse Rate [ 99 H Bilateral Throughout] Respiratory Rate Respiratory 18 Rate [Bilateral Throughout] Blood Pressure O2 Sat by Pulse Oximetry Constitutional: no acute distress, alert Eyes: non-icteric ENT: oropharynx moist Neck: supple, no lymphadenopathy Ascultation: Bilateral: diminished breath sounds Cardiovascular: regular rate and rhythm Gastrointestinal: normoactive bowel sounds, soft Integumentary: normal Extremities: no cyanosis, no edema Neurologic: normal mental status, non-focal exam, pupils equal and round, CN II- XII normal Psychiatric: mood appropriate CBC and BMP: 10/11/18 03:48 10/10/18 03:01 ABG, PT/INR, D-dimer: ABG POC ABG pH 7.341 (7.35-7.45) L 10/09/18 14:52 POC ABG pCO2 36.2 (35-45) 10/09/18 14:52 POC ABG pO2 62 (80-105) L 10/09/18 14:52 POC ABG HCO3 19.6 (22-26 mml/L) 10/09/18 14:52 POC ABG Total CO2 21 (23-27mmol/L) 10/09/18 14:52 POC ABG O2 Sat 90 10/09/18 14:52 PT/INR, D-dimer PT 14.8 Sec. (12.2-14.9) 10/09/18 00:54 INR 1.09 (0.87-1.13) 10/09/18 00:54 532.59 ng/mlDDU (0-234) H 10/08/18 21:01 Abnormal lab findings: Abnormal Labs 10/08/18 10/08/18 10/08/18 20:40 20:40 21:01 WBC Hgb Hct Lymph % (Auto) [place] # Seg Neutrophils % 74.6 H Seg Neutrophils # 7.9 H D-Dimer 532.59 H POC ABG pH POC ABG pO2 Sodium 132 L Chloride 96.5 L Creatinine 0.7 L Glucose 109 H POC Glucose AST 45 H Total Creatine Kinase CK-MB (CK-2) NT-Pro-B Natriuret Pep 10/08/18 10/09/18 10/09/18 21:01 02:12 05:24 WBC Hgb Hct Lymph % (Auto) [place] # Seg Neutrophils % Seg Neutrophils # D-Dimer POC ABG pH POC ABG pO2 Sodium Chloride Creatinine Glucose POC Glucose 125 H AST Total Creatine Kinase 620 H CK-MB (CK-2) 12.0 H NT-Pro-B Natriuret Pep 1527 H 10/09/18 10/09/18 10/09/18 07:47 08:02 11:59 WBC Hgb Hct Lymph % (Auto) [place] # Seg Neutrophils % Seg Neutrophils # D-Dimer POC ABG pH POC ABG pO2 Sodium Chloride Creatinine Glucose POC Glucose 130 H 150 H AST Total Creatine Kinase 541 H CK-MB (CK-2) 10.1 H NT-Pro-B Natriuret Pep 10/09/18 10/10/18 10/10/18 14:52 03:01 03:01 WBC 13.5 H Hgb Hct Lymph % (Auto) 11.5 L [place] # 0.9 H Seg Neutrophils % 81.3 H Seg Neutrophils # 11.0 H D-Dimer POC ABG pH 7.341 L POC ABG pO2 62 L Sodium 133 L Chloride 95.7 L Creatinine 0.7 L Glucose 140 H POC Glucose AST Total Creatine Kinase CK-MB (CK-2) NT-Pro-B Natriuret Pep 10/10/18 10/11/18 06:46 03:48 WBC Hgb 10.9 L Hct 32.8 L Lymph % (Auto) [place] # Seg Neutrophils % Seg Neutrophils # D-Dimer POC ABG pH POC ABG pO2 Sodium Chloride Creatinine Glucose POC Glucose 139 H AST Total Creatine Kinase CK-MB (CK-2) NT-Pro-B Natriuret Pep Chest x-ray: report reviewed (mild CHF, slightly improved.), image reviewed
[2018-10-12] MEDS: PULMICORT IH SCH (19:20)
[2018-10-12] MEDS: BROVANA NEBU IH SCH (19:23)
[2018-10-12] MEDS: PRAVACHOL PO SCH (21:40)
[2018-10-12] MEDS: SOLU-Medrol IV SCH (21:41)
[2018-10-13] MEDS: CARDIZEM PO SCH ×4 (00:07→17:36)
[2018-10-13] MEDS: LASIX IV SCH ×2 (05:37→17:36)
[2018-10-13] MEDS: SOLU-Medrol IV SCH ×3 (05:37→21:34)
[2018-10-13 06:03] LABS: Hematocrit 33.4 % (35.5-45.6); Hemoglobin 11.3 gm/dl (11.8-15.2)
[2018-10-13] MEDS: NORVASC PO SCH (09:25)
[2018-10-13] MEDS: PROTONIX PO SCH (09:25)
[2018-10-13] MEDS: FOLVITE PO SCH (09:25)
[2018-10-13] MEDS: VITAMIN B-1 PO SCH (09:25)
[2018-10-13] MEDS: ZESTRIL PO SCH (09:25)
[2018-10-13] MEDS: TOPROL XL PO SCH (09:26)
[2018-10-13] MEDS: SODIUM CHLORIDE FLUSH SYRINGE 10 ML IV SCH ×2 (09:28→21:38)
[2018-10-13] MEDS: DUONEB *Not for PRN Use IH SCH ×3 (09:33→20:37)
[2018-10-13] MEDS: PULMICORT IH SCH ×2 (09:33→20:37)
[2018-10-13] MEDS: BROVANA NEBU IH SCH ×3 (09:33→20:39)
--- NOTE | 2018-10-13 09:44 | Progress Note ---
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, EF 40-45% Cont Lasix Atrial fibrillation with RVR and hypercoagulable state -Cardiology following rate control per cardiology, on oral dilt, tsh and mg wnl Abdominal pain is nonspecific History of GERD, PPI CT abdomen and pelvis, shows no acute findings GI input appreciated Alcohol dependence and withdrawal CIWA protocol, IV fluids, Folate and thiamine Full code History Interval history: Feels better Less shortness of breath Hospitalist Physical - Physical exam Narrative exam: Gen: Not in acute distress, lying in bed, HEENT: Normocephalic, atraumatic Neck: supple, no JVD Heart: S1 and S2 reg, no murmurs, rubs or gallop Lungs: bilat crackles, no wheeze Abd: soft, non tender, non distended, normal BS Ext: No edema, no clubbing, no cyanosis, Neuro: Awake,alert, oriented x 3, moves all ext, non focal Psych:Normal mood - Constitutional Vitals: Temp Pulse Resp BP Pulse Ox 97.4 F L 91 H 20 140/69 98 10/13/18 04:40 10/13/18 09:34 10/13/18 09:34 10/13/18 09:01 10/13/18 09:36 General appearance: Present: no acute distress, obese Results - Labs CBC & Chem 7: 10/13/18 05:05 10/10/18 03:01 Labs: Laboratory Last Values WBC 13.5 K/mm3 (4.5-11.0) H 10/10/18 03:01 RBC 3.87 M/mm3 (3.65-5.03) 10/10/18 03:01 Hgb 11.3 gm/dl (11.8-15.2) L 10/13/18 05:05 Hct 33.4 % (35.5-45.6) L 10/13/18 05:05 MCV 92 fl (84-94) 10/10/18 03:01 MCH 31 pg (28-32) 10/10/18 03:01 MCHC 34 % (32-34) 10/10/18 03:01 RDW 14.2 % (13.2-15.2) 10/10/18 03:01 Plt Count 207 K/mm3 (140-440) 10/13/18 05:05 Lymph % (Auto) 11.5 % (13.4-35.0) L 10/10/18 03:01 [place] % (Auto) 6.9 % (0.0-7.3) 10/10/18 03:01 Eos % (Auto) 0.1 % (0.0-4.3) 10/10/18 03:01 Baso % (Auto) 0.2 % (0.0-1.8) 10/10/18 03:01 Lymph # 1.6 K/mm3 (1.2-5.4) 10/10/18 03:01 [place] # 0.9 K/mm3 (0.0-0.8) H 10/10/18 03:01 Eos # 0.0 K/mm3 (0.0-0.4) 10/10/18 03:01 Baso # 0.0 K/mm3 (0.0-0.1) 10/10/18 03:01 Seg Neutrophils % 81.3 % (40.0-70.0) H 10/10/18 03:01 Seg Neutrophils # 11.0 K/mm3 (1.8-7.7) H 10/10/18 03:01 PT 14.8 Sec. (12.2-14.9) 10/09/18 00:54 INR 1.09 (0.87-1.13) 10/09/18 00:54 APTT 32.8 Sec. (24.2-36.6) 10/09/18 00:54 532.59 ng/mlDDU (0-234) H 10/08/18 21:01 Heparin Anti-Xa Level 0.53 U.I./ml (0.3-0.7) 10/13/18 08:20 POC ABG pH 7.341 (7.35-7.45) L 10/09/18 14:52 POC ABG pCO2 36.2 (35-45) 10/09/18 14:52 POC ABG pO2 62 (80-105) L 10/09/18 14:52 POC ABG HCO3 19.6 (22-26 mml/L) 10/09/18 14:52 POC ABG Total CO2 21 (23-27mmol/L) 10/09/18 14:52 POC ABG O2 Sat 90 10/09/18 14:52 POC ABG Base Excess -6 ((-2) - (+3)mmol/L) 10/09/18 14:52 36 % 10/09/18 14:52 Sodium 133 mmol/L (137-145) L 10/10/18 03:01 Potassium 4.5 mmol/L (3.6-5.0) 10/10/18 03:01 Chloride 95.7 mmol/L (98-107) L 10/10/18 03:01 Carbon Dioxide 22 mmol/L (22-30) 10/10/18 03:01 20 mmol/L 10/10/18 03:01 BUN 15 mg/dL (9-20) 10/10/18 03:01 0.7 mg/dL (0.8-1.5) L 10/10/18 03:01 Estimated GFR > 60 ml/min 10/10/18 03:01 21 % 10/10/18 03:01 Glucose 140 mg/dL (75-100) H 10/10/18 03:01 POC Glucose 205 (70-105) H 10/13/18 08:20 Calcium 8.8 mg/dL (8.4-10.2) 10/10/18 03:01 Magnesium 2.00 mg/dL (1.7-2.3) 10/09/18 10:44 0.50 mg/dL (0.1-1.2) 10/08/18 20:40 AST 45 units/L (5-40) H 10/08/18 20:40 ALT 43 units/L (7-56) 10/08/18 20:40 58 units/L (35-129) 10/08/18 20:40 541 units/L (55-170) H 10/09/18 07:47 CK-MB (CK-2) 10.1 ng/mL (0.0-4.0) H 10/09/18 07:47 CK-MB (CK-2) Rel Index 1.8 (0-4) 10/09/18 07:47 0.010 ng/mL (0.00-0.029) 10/09/18 07:47 NT-Pro-B Natriuret Pep 1527 pg/mL (0-900) H 10/08/18 21:01 7.2 g/dL (6.3-8.2) 10/08/18 20:40 4.2 g/dL (3.9-5) 10/08/18 20:40 1.4 % 10/08/18 20:40 17 units/L (13-60) 10/08/18 20:40 TSH 1.230 mlU/mL (0.270-4.200) 10/09/18 10:44 Straw (Yellow) 10/09/18 00:37 Clear (Clear) 10/09/18 00:37 7.0 (5.0-7.0) 10/09/18 00:37 Ur Specific [place] 1.021 (1.003-1.030) 10/09/18 00:37 <15 mg/dl mg/dL (Negative) 10/09/18 00:37 Neg mg/dL (Negative) 10/09/18 00:37 Neg mg/dL (Negative) 10/09/18 00:37 Neg (Negative) 10/09/18 00:37 Neg (Negative) 10/09/18 00:37 Neg (Negative) 10/09/18 00:37 < 2.0 mg/dL (<2.0) 10/09/18 00:37 Ur Leukocyte Esterase Neg (Negative) 10/09/18 00:37 < 1.0 /HPF (0.0-6.0) 10/09/18 00:37 1.0 /HPF (0.0-6.0) 10/09/18 00:37 Active Medications - Current Medications Current Medications: Generic Name Dose Route Start Last Admin Trade Name Freq PRN Reason Stop Dose Admin Acetaminophen 650 mg 10/09/18 01:46 10/11/18 20:24 Tylenol PO 650 mg Q4H PRN Administration Pain MILD(1-3)/Fever >100.5/[place] Albuterol 2.5 mg 05/17/19 12:37 Proventil IH Q6HRT PRN Shortness Of Breath Albuterol/Ipratropium 1 ampul 10/10/18 08:00 10/13/18 09:33 Duoneb *Not For Prn Use* IH 1 ampul TIDRT DEIDRA Administration Amlodipine Besylate 5 mg 10/09/18 13:00 10/13/18 09:25 Norvasc PO 5 mg QDAY DEIDRA Administration Arformoterol Tartrate 15 mcg 10/12/18 14:00 10/13/18 09:33 Brovana Nebu IH 15 mcg Q12HRT DEIDRA Administration Budesonide 0.5 mg 10/12/18 20:00 10/13/18 09:33 Pulmicort IH 0.5 mg Q12HRT DEIDRA Administration Dextrose 50 ml 10/09/18 04:38 D50w (25gm) Syringe IV PRN PRN Hypoglycemia Diltiazem HCl 60 mg 10/09/18 09:00 10/13/18 05:38 Cardizem PO 60 mg Q6HR DEIDRA Administration Folic Acid 1 mg 10/09/18 11:00 10/13/18 09:25 Folvite PO 1 mg QDAY DEIDRA Administration Furosemide 40 mg 10/12/18 10:00 10/13/18 05:37 Lasix IV 40 mg 0600,1800 DEIDRA Administration Glimepiride 4 mg 10/13/18 10:00 Amaryl PO DAILY DEIDRA Hydralazine HCl 10 mg 10/09/18 15:17 Apresoline IV Q4HR PRN BP >160/100 Heparin Sodium/Sodium Chloride 25,000 unit in 500 mls @ 30 mls/hr 10/09/18 01:00 10/12/18 19:13 Heparin/ 0.45% Nacl-25,000 Unit/500 Ml IV 1,500 units/hr TITR DEIDRA 30 mls/hr Administration Protocol 1,500 UNITS/HR Lisinopril 10 mg 10/09/18 13:00 10/13/18 09:25 Zestril PO 10 mg QDAY DEIDRA Administration Lorazepam 1 mg 10/09/18 02:16 Ativan IV Q1HR PRN CIWA-Ar 8-15 Methylprednisolone Sodium Succinate 125 mg 10/12/18 22:00 10/13/18 05:37 Solu-Medrol IV 125 mg Q8HR DEIDRA Administration Metoprolol Succinate 25 mg 10/09/18 13:00 10/13/18 09:26 Toprol Xl PO 25 mg QDAY DEIDRA Administration Miscellaneous Medication 500 mg 10/13/18 10:00 Metformin PO BID DEIDRA Miscellaneous Medication 20 mg 10/13/18 10:00 Omeprazole PO QDAY DEIDRA Miscellaneous Medication 1.25 mcg 10/13/18 10:00 Tiotropium [place] [Spiriva Respimat] INHALATION DAILY [facility] Ondansetron HCl 4 mg 10/09/18 01:46 Zofran IV Q8H PRN Nausea And Vomiting Pantoprazole Sodium 40 mg 10/09/18 11:00 10/13/18 09:25 Protonix PO 40 mg QDAY DEIDRA Administration Pravastatin Sodium 10 mg 10/09/18 22:00 10/12/18 21:40 Pravachol PO 10 mg QHS DEIDRA Administration Sodium Chloride 10 ml 10/09/18 10:00 10/13/18 09:28 Sodium Chloride Flush Syringe 10 Ml IV 10 ml BID DEIDRA Administration Sodium Chloride 10 ml 10/09/18 01:46 Sodium Chloride Flush Syringe 10 Ml IV PRN PRN LINE FLUSH Thiamine HCl 100 mg 10/09/18 11:00 10/13/18 09:25 Vitamin B-1 PO 100 mg QDAY DEIDRA Administration Nutrition/Malnutrition Assess - Dietary Evaluation Nutrition/Malnutrition Findings: Nutrition Notes Start: 10/09/18 14:34 Freq: Status: Active Protocol: Document 10/10/18 15:18 RM (Rec: 10/10/18 15:21 [id number]) Nutrition Notes Initial or Follow up Assessment Current Diagnosis COPD,Diabetes,Hypertension, Heart Failure,Hyperlipidemia Other Pertinent Diagnosis Abdominal pain, N/V, Alcohol abuse, GERD Current Diet Cardiac Labs/Tests Reviewed Pertinent Medications Reviewed Height 6 ft Weight 104.1 kg [place] Body Weight (kg) 80.90 BMI 31.1 Subjective/Other Information Pt daughter present at time of visit. Reviewed DM diet education. Gave handout. Burn Absent Trauma Absent #1 Nutrition Diagnosis Food and nutrition-related knowledge deficit Etiology lack of prior education As Evidenced by Signs and Symptoms pt and pt daughter desire for education Nutrition Intervention Teaching Recipient Family Learning Readiness Good Teaching Methods Discussion,Handout Response to Teaching Verbalize understanding Education Handouts Provided Carbohydrate counting for people with diabetes Barriers to Learning No Barriers RD phone number provided Yes Patient aware of follow up options Yes Goal #1 Utilize carbohydrate counting Revisit per MD consult or patient Sign Off request:
[2018-10-13] MEDS ORDERED: NON-FORMULARY (Omeprazole 20 MG) PO SCH (10:00)
[2018-10-13] MEDS ORDERED: TIOTROPIUM BROMIDE 1.25 MCG INHALATION SCH (10:00)
[2018-10-13] MEDS ORDERED: PROTONIX PO SCH (10:00)
--- NOTE | 2018-10-13 10:36 | Progress Note ---
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 Outpatient cardiac follow up post discharge for asymptomatic valvular heart lesions. Conservative cardiac management. Subjective Date of service: 10/13/18 Interval history: Patient has no complaints. Objective Vital Signs Temp Pulse Pulse Pulse Resp Resp BP 10/13/18 09:58 93 H 20 10/13/18 09:36 10/13/18 09:34 91 H 20 10/13/18 09:01 140/69 10/13/18 08:00 95 H 24 133/75 10/13/18 07:01 93 H 20 134/83 10/13/18 06:01 93 H 25 H 134/83 10/13/18 06:00 83 10/13/18 05:38 90 131/76 10/13/18 05:01 89 22 131/76 10/13/18 04:40 97.4 F L 10/13/18 04:00 97.4 F L 88 83 22 132/86 10/13/18 03:00 83 17 131/81 10/13/18 02:00 85 19 124/71 10/13/18 01:00 87 14 124/77 10/13/18 00:21 98.0 F 10/13/18 00:07 87 130/87 10/13/18 00:01 89 22 130/87 10/13/18 00:00 96 H 19 10/12/18 23:00 89 23 120/80 10/12/18 22:00 90 24 127/76 10/12/18 21:00 96 H 33 H 147/81 10/12/18 20:00 98.3 F 96 H 28 H 135/80 10/12/18 19:35 95 H 22 10/12/18 19:22 96 H 23 10/12/18 19:21 10/12/18 19:13 96 H 143/82 10/12/18 19:01 96 H 25 H 143/82 10/12/18 18:29 96 H 20 137/76 10/12/18 18:00 94 H 24 137/76 10/12/18 17:00 95 H 24 129/77 10/12/18 16:35 98.2 F 10/12/18 16:06 99 H 18 10/12/18 16:00 100 H 96 H 21 137/80 10/12/18 15:01 99 H 20 144/64 10/12/18 14:00 98 H 97 H 19 18 140/79 10/12/18 13:22 95 H 135/77 10/12/18 13:06 98.4 F 10/12/18 13:00 91 H 21 135/77 10/12/18 12:00 97 H 93 H 23 128/80 10/12/18 11:00 90 20 128/80 10/12/18 10:36 99 H 18 Pulse Ox 10/13/18 09:58 10/13/18 09:36 98 10/13/18 09:34 10/13/18 09:01 97 10/13/18 08:00 97 10/13/18 07:01 99 10/13/18 06:01 98 10/13/18 06:00 10/13/18 05:38 10/13/18 05:01 100 10/13/18 04:40 10/13/18 04:00 100 10/13/18 03:00 96 10/13/18 02:00 95 10/13/18 01:00 95 10/13/18 00:21 10/13/18 00:07 10/13/18 00:01 93 10/13/18 00:00 97 10/12/18 23:00 94 10/12/18 22:00 95 10/12/18 21:00 93 10/12/18 20:00 95 10/12/18 19:35 10/12/18 19:22 10/12/18 19:21 96 10/12/18 19:13 10/12/18 19:01 96 10/12/18 18:29 97 10/12/18 18:00 95 10/12/18 17:00 92 10/12/18 16:35 10/12/18 16:06 10/12/18 16:00 96 10/12/18 15:01 96 10/12/18 14:00 95 10/12/18 13:22 10/12/18 13:06 10/12/18 13:00 97 10/12/18 12:00 92 10/12/18 11:00 95 10/12/18 10:36 - Physical Examination General: No Apparent Distress HEENT: Positive: PERRL Neck: Positive: trachea midline Cardiac: Positive: Reg Rate and Rhythm Neuro: Positive: Grossly Intact Extremities: Absent: edema - Labs and Meds CBC 10/13/18 Range/Units 05:05 Hgb 11.3 L (11.8-15.2) gm/dl Hct 33.4 L (35.5-45.6) % Plt Count 207 (140-440) K/mm3 - Imaging and Cardiology EKG: image reviewed
[2018-10-13] MEDS: AMARYL PO SCH (11:34)
--- NOTE | 2018-10-13 11:48 | Progress Note ---
Assessment and Plan Patient awake . Patient is on vapotherm, FIO2 50%, O2 saturation 98%. BIPAP in room on standby. No acute respiratory distress. Angio CT of chest reported small bilateral pulmonary emboli. Patient is on I/V heparin. - Patient Problems (1) Pulmonary embolism Current Visit: Yes Status: Acute Plan to address problem: Patient is on I/V heparin. (2) Pleural effusion, bilateral Current Visit: Yes Status: Acute Plan to address problem: Ultrasound of chest probably on friday. (3) Acute respiratory failure with hypoxia Current Visit: Yes Status: Acute Plan to address problem: O2 supplementation, Patient is on vapotherm, FIO2 50%. Albuterol/Atrovent aerosol treatment q6 hrs Continue solumedrol Patient is on heparin drip Continue protonix (4) COPD exacerbation Current Visit: No Status: Acute Plan to address problem: O2 supplementation, FIO2 50%.on Vapotherm Albuterol/atrovent aerosol treatments q 6 hours. Patient is on I/V Heparin. Continue solumedrol Continue protonix. (5) Atrial flutter Current Visit: Yes Status: Acute Plan to address problem: Patient is on I/V Heparin. Management as per cardiology. (6) CHF (congestive heart failure) Current Visit: Yes Status: Acute Plan to address problem: Management as per cardiology. (7) GERD (gastroesophageal reflux disease) Current Visit: No Status: Chronic Qualifiers: Esophagitis presence: without esophagitis Qualified Code(s): K21.9 - Gastro-esophageal reflux disease without esophagitis Plan to address problem: Continue Protonix. (8) Hypertension Current Visit: No Status: Chronic Qualifiers: Hypertension type: essential hypertension Qualified Code(s): I10 - Essential (primary) hypertension Plan to address problem: Management as per primary care. Subjective Date of service: 10/13/18 Interval history: Patient awake . Patient is on vapotherm, FIO2 50%, O2 saturation 98%. BIPAP in room on standby. No acute respiratory distress. Angio CT of chest reported small bilateral pulmonary emboli. Patient is on I/V heparin. Objective Vital Signs - 12hr 10/13/18 10/13/18 10/13/18 00:00 00:01 00:07 Temperature Pulse Rate 89 87 Pulse Rate [ Bilateral Throughout] Pulse Rate [ 96 H From Monitor] Respiratory 19 22 Rate Respiratory Rate [Bilateral Throughout] Blood Pressure 130/87 130/87 O2 Sat by Pulse 97 93 Oximetry 10/13/18 10/13/18 10/13/18 00:21 01:00 02:00 Temperature 98.0 F Pulse Rate 87 85 Pulse Rate [ Bilateral Throughout] Pulse Rate [ From Monitor] Respiratory 14 19 Rate Respiratory Rate [Bilateral Throughout] Blood Pressure 124/77 124/71 O2 Sat by Pulse 95 95 Oximetry 10/13/18 10/13/18 10/13/18 03:00 04:00 04:40 Temperature 97.4 F L 97.4 F L Pulse Rate 83 88 Pulse Rate [ Bilateral Throughout] Pulse Rate [ 83 From Monitor] Respiratory 17 22 Rate Respiratory Rate [Bilateral Throughout] Blood Pressure 131/81 132/86 O2 Sat by Pulse 96 100 Oximetry 10/13/18 10/13/18 10/13/18 05:01 05:38 06:00 Temperature Pulse Rate 89 90 83 Pulse Rate [ Bilateral Throughout] Pulse Rate [ From Monitor] Respiratory 22 Rate Respiratory Rate [Bilateral Throughout] Blood Pressure 131/76 131/76 O2 Sat by Pulse 100 Oximetry 10/13/18 10/13/18 10/13/18 06:01 07:01 08:00 Temperature Pulse Rate 93 H 93 H 95 H Pulse Rate [ Bilateral Throughout] Pulse Rate [ From Monitor] Respiratory 25 H 20 24 Rate Respiratory Rate [Bilateral Throughout] Blood Pressure 134/83 134/83 133/75 O2 Sat by Pulse 98 99 97 Oximetry 10/13/18 10/13/18 10/13/18 09:01 09:34 09:36 Temperature Pulse Rate Pulse Rate [ 91 H Bilateral Throughout] Pulse Rate [ From Monitor] Respiratory Rate Respiratory 20 Rate [Bilateral Throughout] Blood Pressure 140/69 O2 Sat by Pulse 97 98 Oximetry 10/13/18 09:58 Temperature Pulse Rate Pulse Rate [ 93 H Bilateral Throughout] Pulse Rate [ From Monitor] Respiratory Rate Respiratory 20 Rate [Bilateral Throughout] Blood Pressure O2 Sat by Pulse Oximetry Constitutional: no acute distress, alert Eyes: non-icteric ENT: oropharynx moist Neck: supple, no lymphadenopathy Ascultation: Bilateral: diminished breath sounds Cardiovascular: regular rate and rhythm Gastrointestinal: normoactive bowel sounds, soft Integumentary: normal Extremities: no cyanosis, no edema Neurologic: normal mental status, non-focal exam, pupils equal and round, CN II- XII normal Psychiatric: mood appropriate CBC and BMP: 10/13/18 05:05 10/10/18 03:01 ABG, PT/INR, D-dimer: ABG POC ABG pH 7.341 (7.35-7.45) L 10/09/18 14:52 POC ABG pCO2 36.2 (35-45) 10/09/18 14:52 POC ABG pO2 62 (80-105) L 10/09/18 14:52 POC ABG HCO3 19.6 (22-26 mml/L) 10/09/18 14:52 POC ABG Total CO2 21 (23-27mmol/L) 10/09/18 14:52 POC ABG O2 Sat 90 10/09/18 14:52 PT/INR, D-dimer PT 14.8 Sec. (12.2-14.9) 10/09/18 00:54 INR 1.09 (0.87-1.13) 10/09/18 00:54 532.59 ng/mlDDU (0-234) H 10/08/18 21:01 Abnormal lab findings: Abnormal Labs 10/08/18 10/08/18 10/08/18 20:40 20:40 21:01 WBC Hgb Hct Lymph % (Auto) [place] # Seg Neutrophils % 74.6 H Seg Neutrophils # 7.9 H D-Dimer 532.59 H POC ABG pH POC ABG pO2 Sodium 132 L Chloride 96.5 L Creatinine 0.7 L Glucose 109 H POC Glucose AST 45 H Total Creatine Kinase CK-MB (CK-2) NT-Pro-B Natriuret Pep 10/08/18 10/09/18 10/09/18 21:01 02:12 05:24 WBC Hgb Hct Lymph % (Auto) [place] # Seg Neutrophils % Seg Neutrophils # D-Dimer POC ABG pH POC ABG pO2 Sodium Chloride Creatinine Glucose POC Glucose 125 H AST Total Creatine Kinase 620 H CK-MB (CK-2) 12.0 H NT-Pro-B Natriuret Pep 1527 H 10/09/18 10/09/18 10/09/18 07:47 08:02 11:59 WBC Hgb Hct Lymph % (Auto) [place] # Seg Neutrophils % Seg Neutrophils # D-Dimer POC ABG pH POC ABG pO2 Sodium Chloride Creatinine Glucose POC Glucose 130 H 150 H AST Total Creatine Kinase 541 H CK-MB (CK-2) 10.1 H NT-Pro-B Natriuret Pep 10/09/18 10/10/18 10/10/18 14:52 03:01 03:01 WBC 13.5 H Hgb Hct Lymph % (Auto) 11.5 L [place] # 0.9 H Seg Neutrophils % 81.3 H Seg Neutrophils # 11.0 H D-Dimer POC ABG pH 7.341 L POC ABG pO2 62 L Sodium 133 L Chloride 95.7 L Creatinine 0.7 L Glucose 140 H POC Glucose AST Total Creatine Kinase CK-MB (CK-2) NT-Pro-B Natriuret Pep 10/10/18 10/11/18 10/12/18 06:46 03:48 23:14 WBC Hgb 10.9 L Hct 32.8 L Lymph % (Auto) [place] # Seg Neutrophils % Seg Neutrophils # D-Dimer POC ABG pH POC ABG pO2 Sodium Chloride Creatinine Glucose POC Glucose 139 H 242 H AST Total Creatine Kinase CK-MB (CK-2) NT-Pro-B Natriuret Pep 10/13/18 10/13/18 10/13/18 05:05 08:20 11:35 WBC Hgb 11.3 L Hct 33.4 L Lymph % (Auto) [place] # Seg Neutrophils % Seg Neutrophils # D-Dimer POC ABG pH POC ABG pO2 Sodium Chloride Creatinine Glucose POC Glucose 205 H 297 H AST Total Creatine Kinase CK-MB (CK-2) NT-Pro-B Natriuret Pep
[2018-10-13] MEDS: TESSALON PERLES PO SCH ×2 (17:35→21:37)
[2018-10-13] MEDS: GLUCOPHAGE PO SCH (17:36)
[2018-10-13] MEDS: PRAVACHOL PO SCH (21:35)
[2018-10-14] MEDS: SOLU-Medrol IV SCH ×2 (05:54→13:12)
[2018-10-14] MEDS: CARDIZEM PO SCH ×5 (05:55→23:14)
[2018-10-14] MEDS: LASIX IV SCH ×2 (06:04→17:37)
[2018-10-14] MEDS: TESSALON PERLES PO SCH ×3 (06:04→21:35)
[2018-10-14 06:20] LABS: Hemoglobin 10.7 gm/dl (11.8-15.2); Mean Corpuscular HGB Conc 32 % (32-34); Mean Corpuscular Volume 93 fl (84-94); Platelet Count 215 K/mm3 (140-440); Red Blood Count 3.56 M/mm3 (3.65-5.03); Red Cell Distribution Width 14.2 % (13.2-15.2)
[2018-10-14 06:47] LABS: BUN/Creatinine Ratio 26; Blood Urea Nitrogen 18 mg/dL (9-20); Calcium 8.2 mg/dL (8.4-10.2); Hemolysis Index 8
[2018-10-14] MEDS: DUONEB *Not for PRN Use IH SCH ×3 (08:27→19:55)
[2018-10-14] MEDS: BROVANA NEBU IH SCH ×2 (08:27→19:55)
[2018-10-14] MEDS: PULMICORT IH SCH ×2 (08:27→19:55)
--- NOTE | 2018-10-14 08:27 | Progress Note ---
Assessment and Plan Assessment and plan: 78-year-old man presented to the hospital of abdominal pain and trouble breathing -Patient has a history of alcoholism drinks 10-12 beers a day PMH; hypertension, diabetes, hyperlipidemia, alcohol abuse, former smoker Acute resp failure with hypoxia Cont high flow Oxygen discussed with Nurse to attempt weaning Bilateral pulmonary emboli Continue heparin drip, venous Dopplers of lower extremities neg will transition to eliquis when patient is approaching readiness for dc COPD exacerbation steroids, nebs, LABA and inhaled steroid, dw spareribs trimmer Acute on chronic systolic chf, EF 40-45% Cont Lasix Atrial fibrillation with RVR and hypercoagulable state -Cardiology following rate control per cardiology, on oral dilt, tsh and mg wnl Abdominal pain is nonspecific History of GERD, PPI CT abdomen and pelvis, shows no acute findings GI input appreciated Alcohol dependence and withdrawal CIWA protocol, IV fluids, Folate and Thiamine Full code History Interval history: Feels better Less shortness of breath Hospitalist Physical - Physical exam Narrative exam: Gen: Not in acute distress, lying in bed, obese HEENT: Normocephalic, atraumatic Neck: supple, no JVD Heart: S1 and S2 reg, no murmurs, rubs or gallop Lungs: bilat crackles, no wheeze Abd: soft, non tender, non distended, normal BS Ext: No edema, no clubbing, no cyanosis, Neuro: Awake,alert, oriented x 3, moves all ext, non focal Psych:Normal mood - Constitutional Vitals: Temp Pulse Resp BP Pulse Ox 98.7 F 86 22 131/79 98 10/14/18 04:00 10/14/18 08:00 10/14/18 08:00 10/14/18 08:00 10/14/18 08:00 General appearance: Present: no acute distress, obese Results - Labs CBC & Chem 7: 10/14/18 05:33 10/14/18 05:33 Labs: Laboratory Last Values WBC 15.0 K/mm3 (4.5-11.0) H 10/14/18 05:33 RBC 3.56 M/mm3 (3.65-5.03) L 10/14/18 05:33 Hgb 10.7 gm/dl (11.8-15.2) L 10/14/18 05:33 Hct 33.0 % (35.5-45.6) L 10/14/18 05:33 MCV 93 fl (84-94) 10/14/18 05:33 MCH 30 pg (28-32) 10/14/18 05:33 MCHC 32 % (32-34) 10/14/18 05:33 RDW 14.2 % (13.2-15.2) 10/14/18 05:33 Plt Count 215 K/mm3 (140-440) 10/14/18 05:33 Lymph % (Auto) 11.5 % (13.4-35.0) L 10/10/18 03:01 [place] % (Auto) 6.9 % (0.0-7.3) 10/10/18 03:01 Eos % (Auto) 0.1 % (0.0-4.3) 10/10/18 03:01 Baso % (Auto) 0.2 % (0.0-1.8) 10/10/18 03:01 Lymph # 1.6 K/mm3 (1.2-5.4) 10/10/18 03:01 [place] # 0.9 K/mm3 (0.0-0.8) H 10/10/18 03:01 Eos # 0.0 K/mm3 (0.0-0.4) 10/10/18 03:01 Baso # 0.0 K/mm3 (0.0-0.1) 10/10/18 03:01 Seg Neutrophils % 81.3 % (40.0-70.0) H 10/10/18 03:01 Seg Neutrophils # 11.0 K/mm3 (1.8-7.7) H 10/10/18 03:01 PT 14.8 Sec. (12.2-14.9) 10/09/18 00:54 INR 1.09 (0.87-1.13) 10/09/18 00:54 APTT 32.8 Sec. (24.2-36.6) 10/09/18 00:54 532.59 ng/mlDDU (0-234) H 10/08/18 21:01 Heparin Anti-Xa Level 0.53 U.I./ml (0.3-0.7) 10/13/18 08:20 POC ABG pH 7.341 (7.35-7.45) L 10/09/18 14:52 POC ABG pCO2 36.2 (35-45) 10/09/18 14:52 POC ABG pO2 62 (80-105) L 10/09/18 14:52 POC ABG HCO3 19.6 (22-26 mml/L) 10/09/18 14:52 POC ABG Total CO2 21 (23-27mmol/L) 10/09/18 14:52 POC ABG O2 Sat 90 10/09/18 14:52 POC ABG Base Excess -6 ((-2) - (+3)mmol/L) 10/09/18 14:52 36 % 10/09/18 14:52 Sodium 131 mmol/L (137-145) L 10/14/18 05:33 Potassium 4.4 mmol/L (3.6-5.0) 10/14/18 05:33 Chloride 94.1 mmol/L (98-107) L 10/14/18 05:33 Carbon Dioxide 24 mmol/L (22-30) 10/14/18 05:33 17 mmol/L 10/14/18 05:33 BUN 18 mg/dL (9-20) 10/14/18 05:33 0.7 mg/dL (0.8-1.5) L 10/14/18 05:33 Estimated GFR > 60 ml/min 10/14/18 05:33 26 % 10/14/18 05:33 Glucose 230 mg/dL (75-100) H 10/14/18 05:33 POC Glucose 275 (70-105) H 10/14/18 08:28 Calcium 8.2 mg/dL (8.4-10.2) L 10/14/18 05:33 Magnesium 2.00 mg/dL (1.7-2.3) 10/09/18 10:44 0.50 mg/dL (0.1-1.2) 10/08/18 20:40 AST 45 units/L (5-40) H 10/08/18 20:40 ALT 43 units/L (7-56) 10/08/18 20:40 58 units/L (35-129) 10/08/18 20:40 541 units/L (55-170) H 10/09/18 07:47 CK-MB (CK-2) 10.1 ng/mL (0.0-4.0) H 10/09/18 07:47 CK-MB (CK-2) Rel Index 1.8 (0-4) 10/09/18 07:47 0.010 ng/mL (0.00-0.029) 10/09/18 07:47 NT-Pro-B Natriuret Pep 1527 pg/mL (0-900) H 10/08/18 21:01 7.2 g/dL (6.3-8.2) 10/08/18 20:40 4.2 g/dL (3.9-5) 10/08/18 20:40 1.4 % 10/08/18 20:40 17 units/L (13-60) 10/08/18 20:40 TSH 1.230 mlU/mL (0.270-4.200) 10/09/18 10:44 Straw (Yellow) 10/09/18 00:37 Clear (Clear) 10/09/18 00:37 7.0 (5.0-7.0) 10/09/18 00:37 Ur Specific [place] 1.021 (1.003-1.030) 10/09/18 00:37 <15 mg/dl mg/dL (Negative) 10/09/18 00:37 Neg mg/dL (Negative) 10/09/18 00:37 Neg mg/dL (Negative) 10/09/18 00:37 Neg (Negative) 10/09/18 00:37 Neg (Negative) 10/09/18 00:37 Neg (Negative) 10/09/18 00:37 < 2.0 mg/dL (<2.0) 10/09/18 00:37 Ur Leukocyte Esterase Neg (Negative) 10/09/18 00:37 < 1.0 /HPF (0.0-6.0) 10/09/18 00:37 1.0 /HPF (0.0-6.0) 10/09/18 00:37 Active Medications - Current Medications Current Medications: Generic Name Dose Route Start Last Admin Trade Name Freq PRN Reason Stop Dose Admin Acetaminophen 650 mg 10/09/18 01:46 10/11/18 20:24 Tylenol PO 650 mg Q4H PRN Administration Pain MILD(1-3)/Fever >100.5/DUCKWORTH Albuterol 2.5 mg 10/09/18 12:37 Proventil IH Q6HRT PRN Shortness Of Breath Albuterol/Ipratropium 1 ampul 10/10/18 08:00 10/13/18 20:37 Duoneb *Not For Prn Use* IH 1 ampul TIDRT DEIDRA Administration Amlodipine Besylate 5 mg 10/09/18 13:00 10/13/18 09:25 Norvasc PO 5 mg QDAY DEIDRA Administration Arformoterol Tartrate 15 mcg 10/12/18 14:00 10/13/18 20:39 Brovana Nebu IH Not Given Q12HRT DEIDRA Benzonatate 100 mg 10/13/18 17:00 10/14/18 06:04 Tessalon Perles PO 100 mg Q8HR DEIDRA Administration Budesonide 0.5 mg 10/12/18 20:00 10/13/18 20:37 Pulmicort IH 0.5 mg Q12HRT DEIDRA Administration Dextrose 50 ml 10/09/18 04:38 D50w (25gm) Syringe IV PRN PRN Hypoglycemia Diltiazem HCl 60 mg 10/09/18 09:00 10/14/18 05:55 Cardizem PO 60 mg Q6HR DEIDRA Administration Folic Acid 1 mg 10/09/18 11:00 10/13/18 09:25 Folvite PO 1 mg QDAY DEIDRA Administration Furosemide 40 mg 10/12/18 10:00 10/14/18 06:04 Lasix IV 40 mg 0600,1800 DEIDRA Administration Glimepiride 4 mg 10/13/18 10:00 10/13/18 11:34 Amaryl PO 4 mg DAILY DEIDRA Administration Hydralazine HCl 10 mg 10/09/18 15:17 Apresoline IV Q4HR PRN BP >160/100 Heparin Sodium/Sodium Chloride 25,000 unit in 500 mls @ 30 mls/hr 10/09/18 01:00 10/12/18 19:13 Heparin/ 0.45% Nacl-25,000 Unit/500 Ml IV 1,500 units/hr TITR DEIDRA 30 mls/hr Administration Protocol 1,500 UNITS/HR Lisinopril 10 mg 10/09/18 13:00 10/13/18 09:25 Zestril PO 10 mg QDAY DEIDRA Administration Lorazepam 1 mg 10/09/18 02:16 Ativan IV Q1HR PRN CIWA-Ar 8-15 Metformin HCl 500 mg 10/13/18 17:00 10/13/18 17:36 Glucophage PO 500 mg BIDDIAB DEIDRA Administration Methylprednisolone Sodium Succinate 125 mg 10/12/18 22:00 10/14/18 05:54 Solu-Medrol IV 125 mg Q8HR DEIDRA Administration Metoprolol Succinate 25 mg 10/09/18 13:00 10/13/18 09:26 Toprol Xl PO 25 mg QDAY DEIDRA Administration Ondansetron HCl 4 mg 10/09/18 01:46 Zofran IV Q8H PRN Nausea And Vomiting Pantoprazole Sodium 40 mg 10/09/18 11:00 10/13/18 09:25 Protonix PO 40 mg QDAY DEIDRA Administration Pravastatin Sodium 10 mg 10/09/18 22:00 10/13/18 21:35 Pravachol PO 10 mg QHS DEIDRA Administration Sodium Chloride 10 ml 10/09/18 10:00 10/13/18 21:38 Sodium Chloride Flush Syringe 10 Ml IV 10 ml BID DEIDRA Administration Sodium Chloride 10 ml 10/09/18 01:46 Sodium Chloride Flush Syringe 10 Ml IV PRN PRN LINE FLUSH Thiamine HCl 100 mg 10/09/18 11:00 10/13/18 09:25 Vitamin B-1 PO 100 mg QDAY DEIDRA Administration Nutrition/Malnutrition Assess - Dietary Evaluation Nutrition/Malnutrition Findings: Nutrition Notes Start: 10/09/18 14:34 Freq: Status: Active Protocol: Document 10/10/18 15:18 RM (Rec: 10/10/18 15:21 [id number]) Nutrition Notes Initial or Follow up Assessment Current Diagnosis COPD,Diabetes,Hypertension, Heart Failure,Hyperlipidemia Other Pertinent Diagnosis Abdominal pain, N/V, Alcohol abuse, GERD Current Diet Cardiac Labs/Tests Reviewed Pertinent Medications Reviewed Height 6 ft Weight 104.1 kg [place] Body Weight (kg) 80.90 BMI 31.1 Subjective/Other Information Pt daughter present at time of visit. Reviewed DM diet education. Gave handout. Burn Absent Trauma Absent #1 Nutrition Diagnosis Food and nutrition-related knowledge deficit Etiology lack of prior education As Evidenced by Signs and Symptoms pt and pt daughter desire for education Nutrition Intervention Teaching Recipient Family Learning Readiness Good Teaching Methods Discussion,Handout Response to Teaching Verbalize understanding Education Handouts Provided Carbohydrate counting for people with diabetes Barriers to Learning No Barriers RD phone number provided Yes Patient aware of follow up options Yes Goal #1 Utilize carbohydrate counting Revisit per MD consult or patient Sign Off request:
[2018-10-14] MEDS: ZESTRIL PO SCH (09:05)
[2018-10-14] MEDS: FOLVITE PO SCH (09:05)
[2018-10-14] MEDS: SODIUM CHLORIDE FLUSH SYRINGE 10 ML IV SCH ×2 (09:06→21:36)
[2018-10-14] MEDS: TOPROL XL PO SCH (09:06)
[2018-10-14] MEDS: NORVASC PO SCH (09:06)
[2018-10-14] MEDS: GLUCOPHAGE PO SCH ×2 (09:06→17:37)
[2018-10-14] MEDS: AMARYL PO SCH (09:06)
[2018-10-14] MEDS: PROTONIX PO SCH (09:06)
[2018-10-14] MEDS: VITAMIN B-1 PO SCH (09:08)
--- NOTE | 2018-10-14 10:14 | Progress Note ---
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 Outpatient cardiac follow up post discharge for asymptomatic valvular heart lesions. Conservative cardiac management. Subjective Date of service: 10/14/18 Interval history: Patient sitting up in bed eating breakfast. He has no complaints. Objective Vital Signs Temp Pulse Pulse Pulse Resp Resp BP 10/14/18 09:00 95 H 17 126/72 10/14/18 08:16 91 H 12 10/14/18 08:00 98.6 F 91 H 86 90 13 22 131/79 10/14/18 07:00 89 15 130/74 10/14/18 06:00 90 134/82 10/14/18 05:55 90 134/82 10/14/18 05:00 126/75 10/14/18 04:00 98.7 F 90 17 104/60 10/14/18 03:00 135/114 10/14/18 02:00 87 19 136/69 10/14/18 01:00 85 15 136/69 10/14/18 00:00 99.3 F 87 82 17 129/65 10/13/18 23:00 84 19 123/73 10/13/18 22:44 89 16 142/72 10/13/18 22:00 88 19 142/72 10/13/18 21:00 83 13 127/65 10/13/18 20:40 86 22 10/13/18 20:30 82 25 H 10/13/18 20:00 98.6 F 83 85 19 135/66 10/13/18 19:00 87 22 127/65 10/13/18 18:01 99 H 22 140/71 10/13/18 17:25 82 10/13/18 17:00 90 21 140/71 10/13/18 16:00 98.2 F 96 H 83 24 146/75 10/13/18 15:41 91 H 20 10/13/18 15:31 100 H 20 10/13/18 15:30 10/13/18 15:01 99 H 26 H 143/89 10/13/18 14:00 84 21 137/73 10/13/18 13:01 101 H 24 76/38 10/13/18 12:00 98.4 F 83 16 131/80 10/13/18 11:01 139/76 Pulse Ox 10/14/18 09:00 95 10/14/18 08:16 10/14/18 08:00 97 10/14/18 07:00 85 10/14/18 06:00 97 10/14/18 05:55 10/14/18 05:00 94 10/14/18 04:00 96 10/14/18 03:00 89 10/14/18 02:00 96 10/14/18 01:00 93 10/14/18 00:00 91 10/13/18 23:00 95 10/13/18 22:44 97 10/13/18 22:00 94 10/13/18 21:00 96 10/13/18 20:40 96 10/13/18 20:30 10/13/18 20:00 97 10/13/18 19:00 98 10/13/18 18:01 98 10/13/18 17:25 10/13/18 17:00 97 10/13/18 16:00 97 10/13/18 15:41 10/13/18 15:31 10/13/18 15:30 96 10/13/18 15:01 95 10/13/18 14:00 97 10/13/18 13:01 88 10/13/18 12:00 97 10/13/18 11:01 98 - Physical Examination General: No Apparent Distress HEENT: Positive: PERRL Neck: Positive: trachea midline Cardiac: Positive: Reg Rate and Rhythm Lungs: Positive: Decreased Breath Sounds Neuro: Positive: Grossly Intact Extremities: Absent: edema - Labs and Meds CBC 10/14/18 Range/Units 05:33 WBC 15.0 H (4.5-11.0) K/mm3 RBC 3.56 L (3.65-5.03) M/mm3 Hgb 10.7 L (11.8-15.2) gm/dl Hct 33.0 L (35.5-45.6) % Plt Count 215 (140-440) K/mm3 Comprehensive Metabolic Panel 05/22/19 Range/Units 05:33 Sodium 131 L (137-145) mmol/L Potassium 4.4 (3.6-5.0) mmol/L Chloride 94.1 L (98-107) mmol/L Carbon Dioxide 24 (22-30) mmol/L BUN 18 (9-20) mg/dL Creatinine 0.7 L (0.8-1.5) mg/dL Glucose 230 H (75-100) mg/dL Calcium 8.2 L (8.4-10.2) mg/dL
--- NOTE | 2018-10-14 14:56 | Progress Note ---
Assessment and Plan Patient awake . Sitting up by the side of the bed. On 4 litres O2. O2 saturation 92%. BIPAP in room on standby. No acute respiratory distress. Angio CT of chest reported small bilateral pulmonary emboli. Patient is on I/V heparin. Ultrasound of chest bilateral pleural effusion, large effusion right side. Recommend right sided thoracentesis by interventional radilogy.Send the pleural fluid for cell count, Protein, LDH, Glucose and Amylase, Gram stain, C%S, AFB,Fungus and cytology. Hold heparin for 6 hours and do thoracentesis. Talk to the patients daughter by phone, explained thoracentesis, its advantages and complications. Also explained to the patient.. - Patient Problems (1) Pulmonary embolism Current Visit: Yes Status: Acute Plan to address problem: Patient is on I/V heparin. (2) Pleural effusion, bilateral Current Visit: Yes Status: Acute Plan to address problem: Ultrasound of chest showed bilateral pleural effusions, larger on right side. (3) Acute respiratory failure with hypoxia Current Visit: Yes Status: Acute Plan to address problem: O2 supplementation, 4 litres via nasal canula. Albuterol/Atrovent aerosol treatment q6 hrs Continue solumedrol Patient is on heparin drip Continue protonix (4) COPD exacerbation Current Visit: No Status: Acute Plan to address problem: O2 supplementation, O2 4 litres via nasal canula. Albuterol/atrovent aerosol treatments q 6 hours. Patient is on I/V Heparin. Continue solumedrol Continue protonix. (5) Atrial flutter Current Visit: Yes Status: Acute Plan to address problem: Patient is on I/V Heparin. Management as per cardiology. (6) CHF (congestive heart failure) Current Visit: Yes Status: Acute Plan to address problem: Management as per cardiology. (7) GERD (gastroesophageal reflux disease) Current Visit: No Status: Chronic Qualifiers: Esophagitis presence: without esophagitis Qualified Code(s): K21.9 - Gastro-esophageal reflux disease without esophagitis Plan to address problem: Continue Protonix. (8) Hypertension Current Visit: No Status: Chronic Qualifiers: Hypertension type: essential hypertension Qualified Code(s): I10 - Essential (primary) hypertension Plan to address problem: Management as per primary care. Subjective Date of service: 10/14/18 Interval history: Patient awake . Sitting up by the side of the bed. On 4 litres O2. O2 saturation 92%. BIPAP in room on standby. No acute respiratory distress. Angio CT of chest reported small bilateral pulmonary emboli. Patient is on I/V heparin. Ultrasound of chest bilateral pleural effusion, large effusion right side. Recommend right sided thoracentesis by interventional radilogy. Send the pleural fluid for cell count, Protein, LDH, Glucose and Amylase, Gram stain, C%S, AFB,Fungus and cytology. Hold heparin for 6 hours and do thoracentesis. Talk to the patients daughter by phone, explained thoracentesis, its advantages and complications. Also explained to the patient. Objective Vital Signs - 12hr 10/14/18 10/14/18 10/14/18 03:00 04:00 05:00 Temperature 98.7 F Pulse Rate Pulse Rate [ Bilateral Throughout] Pulse Rate [ 90 From Monitor] Respiratory 17 Rate Respiratory Rate [Bilateral Throughout] Blood Pressure 135/114 104/60 126/75 O2 Sat by Pulse 89 96 94 Oximetry 10/14/18 10/14/18 10/14/18 05:55 06:00 07:00 Temperature Pulse Rate 90 90 89 Pulse Rate [ Bilateral Throughout] Pulse Rate [ From Monitor] Respiratory 15 Rate Respiratory Rate [Bilateral Throughout] Blood Pressure 134/82 134/82 130/74 O2 Sat by Pulse 97 85 Oximetry 10/14/18 10/14/18 10/14/18 08:00 08:16 09:00 Temperature 98.0 F Pulse Rate 91 H 95 H Pulse Rate [ 86 91 H Bilateral Throughout] Pulse Rate [ 90 From Monitor] Respiratory 13 17 Rate Respiratory 22 12 Rate [Bilateral Throughout] Blood Pressure 131/79 126/72 O2 Sat by Pulse 97 95 Oximetry 10/14/18 10/14/18 10/14/18 10:00 11:00 12:00 Temperature Pulse Rate 85 91 H 90 Pulse Rate [ Bilateral Throughout] Pulse Rate [ From Monitor] Respiratory 20 23 23 Rate Respiratory Rate [Bilateral Throughout] Blood Pressure 133/73 140/80 145/84 O2 Sat by Pulse 96 97 94 Oximetry 10/14/18 10/14/18 10/14/18 13:00 14:00 14:03 Temperature Pulse Rate 97 H Pulse Rate [ 86 Bilateral Throughout] Pulse Rate [ From Monitor] Respiratory 18 Rate Respiratory 21 Rate [Bilateral Throughout] Blood Pressure 150/76 O2 Sat by Pulse 95 98 Oximetry Constitutional: no acute distress, alert Eyes: non-icteric ENT: oropharynx moist Neck: supple, no lymphadenopathy Ascultation: Bilateral: diminished breath sounds Cardiovascular: regular rate and rhythm Gastrointestinal: normoactive bowel sounds, soft Integumentary: normal Extremities: no cyanosis, no edema Neurologic: normal mental status, non-focal exam, pupils equal and round, CN II- XII normal Psychiatric: mood appropriate CBC and BMP: 10/14/18 05:33 10/14/18 05:33 ABG, PT/INR, D-dimer: ABG POC ABG pH 7.341 (7.35-7.45) L 10/09/18 14:52 POC ABG pCO2 36.2 (35-45) 10/09/18 14:52 POC ABG pO2 62 (80-105) L 10/09/18 14:52 POC ABG HCO3 19.6 (22-26 mml/L) 10/09/18 14:52 POC ABG Total CO2 21 (23-27mmol/L) 10/09/18 14:52 POC ABG O2 Sat 90 10/09/18 14:52 PT/INR, D-dimer PT 14.8 Sec. (12.2-14.9) 10/09/18 00:54 INR 1.09 (0.87-1.13) 10/09/18 00:54 532.59 ng/mlDDU (0-234) H 10/08/18 21:01 Abnormal lab findings: Abnormal Labs 10/08/18 10/08/18 10/08/18 20:40 20:40 21:01 WBC RBC Hgb Hct Lymph % (Auto) [place] # Seg Neutrophils % 74.6 H Seg Neutrophils # 7.9 H D-Dimer 532.59 H POC ABG pH POC ABG pO2 Sodium 132 L Chloride 96.5 L Creatinine 0.7 L Glucose 109 H POC Glucose Calcium AST 45 H Total Creatine Kinase CK-MB (CK-2) NT-Pro-B Natriuret Pep 10/08/18 10/09/18 10/09/18 21:01 02:12 05:24 WBC RBC Hgb Hct Lymph % (Auto) [place] # Seg Neutrophils % Seg Neutrophils # D-Dimer POC ABG pH POC ABG pO2 Sodium Chloride Creatinine Glucose POC Glucose 125 H Calcium AST Total Creatine Kinase 620 H CK-MB (CK-2) 12.0 H NT-Pro-B Natriuret Pep 1527 H 10/09/18 10/09/18 10/09/18 07:47 08:02 11:59 WBC RBC Hgb Hct Lymph % (Auto) [place] # Seg Neutrophils % Seg Neutrophils # D-Dimer POC ABG pH POC ABG pO2 Sodium Chloride Creatinine Glucose POC Glucose 130 H 150 H Calcium AST Total Creatine Kinase 541 H CK-MB (CK-2) 10.1 H NT-Pro-B Natriuret Pep 10/09/18 10/10/18 10/10/18 14:52 03:01 03:01 WBC 13.5 H RBC Hgb Hct Lymph % (Auto) 11.5 L [place] # 0.9 H Seg Neutrophils % 81.3 H Seg Neutrophils # 11.0 H D-Dimer POC ABG pH 7.341 L POC ABG pO2 62 L Sodium 133 L Chloride 95.7 L Creatinine 0.7 L Glucose 140 H POC Glucose Calcium AST Total Creatine Kinase CK-MB (CK-2) NT-Pro-B Natriuret Pep 10/10/18 10/11/18 10/12/18 06:46 03:48 23:14 WBC RBC Hgb 10.9 L Hct 32.8 L Lymph % (Auto) [place] # Seg Neutrophils % Seg Neutrophils # D-Dimer POC ABG pH POC ABG pO2 Sodium Chloride Creatinine Glucose POC Glucose 139 H 242 H Calcium AST Total Creatine Kinase CK-MB (CK-2) NT-Pro-B Natriuret Pep 10/13/18 10/13/18 10/13/18 05:05 08:20 11:35 WBC RBC Hgb 11.3 L Hct 33.4 L Lymph % (Auto) [place] # Seg Neutrophils % Seg Neutrophils # D-Dimer POC ABG pH POC ABG pO2 Sodium Chloride Creatinine Glucose POC Glucose 205 H 297 H Calcium AST Total Creatine Kinase CK-MB (CK-2) NT-Pro-B Natriuret Pep 10/13/18 10/13/18 10/14/18 15:58 21:46 05:33 WBC 15.0 H RBC 3.56 L Hgb 10.7 L Hct 33.0 L Lymph % (Auto) [place] # Seg Neutrophils % Seg Neutrophils # D-Dimer POC ABG pH POC ABG pO2 Sodium Chloride Creatinine Glucose POC Glucose 209 H 282 H Calcium AST Total Creatine Kinase CK-MB (CK-2) NT-Pro-B Natriuret Pep 10/14/18 10/14/18 10/14/18 05:33 08:28 11:40 WBC RBC Hgb Hct Lymph % (Auto) [place] # Seg Neutrophils % Seg Neutrophils # D-Dimer POC ABG pH POC ABG pO2 Sodium 131 L Chloride 94.1 L Creatinine 0.7 L Glucose 230 H POC Glucose 275 H 363 H Calcium 8.2 L AST Total Creatine Kinase CK-MB (CK-2) NT-Pro-B Natriuret Pep
--- NOTE | 2018-10-14 15:42 | Ultrasound Report ---
ULTRASOUND BILATERAL CHEST: 10/13/18 10:00:00 CLINICAL: Pleural effusion. FINDINGS: Ultrasound demonstrated a large right pleural effusion with a calculated estimated volume = 1886 cc. Ultrasound demonstrated moderate size left pleural effusion with a calculated estimated volume = 426 cc. IMPRESSION: Bilateral pleural effusion, right larger than left.
[2018-10-14] MEDS: HumuLIN R SUB-Q SCH ×2 (18:34→22:00)
[2018-10-14] MEDS: HEPARIN/ 0.45% NACL-25,000 UNIT/500 ML 25,000 UNIT/500 ML BAG IV SCH (18:43)
[2018-10-14] MEDS: PRAVACHOL PO SCH (21:34)
[2018-10-14] MEDS ORDERED: HumuLIN R SUB-Q SCH (22:00)
[2018-10-15] MEDS: SOLU-Medrol IV SCH ×3 (01:46→16:36)
[2018-10-15] MEDS: ATIVAN IV PRN ×2 (04:07→07:20)
[2018-10-15] MEDS: LASIX IV SCH ×2 (05:32→17:33)
[2018-10-15] MEDS: TESSALON PERLES PO SCH ×3 (05:33→21:31)
[2018-10-15] MEDS: CARDIZEM PO SCH ×3 (05:33→17:31)
[2018-10-15] MEDS ORDERED: LOPRESSOR IV ONE (06:18)
[2018-10-15 06:38] LABS: Hematocrit 33.6 % (35.5-45.6); Hemoglobin 11.1 gm/dl (11.8-15.2); Mean Corpuscular HGB Conc 33 % (32-34); Mean Corpuscular Volume 93 fl (84-94); Platelet Count 225 K/mm3 (140-440); Red Blood Count 3.63 M/mm3 (3.65-5.03); Red Cell Distribution Width 14.2 % (13.2-15.2)
[2018-10-15 07:14] LABS: BUN/Creatinine Ratio 30; Blood Urea Nitrogen 15 mg/dL (9-20); Calcium 8.4 mg/dL (8.4-10.2); Hemolysis Index 6
[2018-10-15] MEDS: GLUCOPHAGE PO SCH ×2 (07:26→16:35)
[2018-10-15] MEDS: HumuLIN R SUB-Q SCH ×4 (08:13→21:34)
[2018-10-15] MEDS: DUONEB *Not for PRN Use IH SCH ×3 (08:55→21:15)
[2018-10-15] MEDS: BROVANA NEBU IH SCH ×2 (08:55→21:15)
[2018-10-15] MEDS: PULMICORT IH SCH ×2 (08:55→21:15)
[2018-10-15] MEDS: TOPROL XL PO SCH (09:17)
[2018-10-15] MEDS: NORVASC PO SCH (09:19)
[2018-10-15] MEDS: ZESTRIL PO SCH (09:19)
[2018-10-15] MEDS: SODIUM CHLORIDE FLUSH SYRINGE 10 ML IV SCH ×2 (09:20→21:32)
--- NOTE | 2018-10-15 09:20 | Progress Note ---
Assessment and Plan Acute respiratory failure with hypoxia PaO2 62 on FIO2 36% on admission Bilateral pulmonary emboli Bilateral pleural effusions with atelectasis COPD exacerbation Acute on chronic systolic CHF EF 40-45% Atrial fibrillation with RVR and hypercoagulable state Alcohol dependence and withdrawal Abdominal pain, resolved -Bronchodilators - Wean supplemental oxygen to keep O2 sats 88-90% -Anticoagulation, therapeutic -Monitor closely for bleeding complications -Diagnostic thoracentesis, send pleural fluid for analysis -Start oral anticoagulation in the morning -[facility] protocol for alcohol abuse disorder -Short course of steroids -PT/OT/Mobility -Aspiration precautions -Accucheck with glycemic control -Target glucose 140-180mg/dL -Incentive spirometry with airway clearance techniques CONDITION: GUARDED PROGNOSIS: GUARDED CODE STATUS: FULL CODE The high probability of a clinically significant, sudden or life-threatening deterioration of the [respiratory, neurology, cardiovascular] system(s) required my full and direct attention, intervention and personal management. The aggregate critical care time was [31] minutes without overlap. Time includes spent on; [x] Data Review and interpretation [x] Patient assessment and monitoring of vital signs [x] Documentation [x] Medication orders and management Subjective Date of service: 10/15/18 Interval history: Patient is seen today for: Acute hypoxic respiratory failure, Acute bilateral pulmonary embolism, Bilateral pleural effusions, COPD Seen and examined at bedside; 24hour events reviewed; nursing and respiratory care staff consulted; no adverse overnight events reported to me; Vitals, labs, medications, chart and imaging reviewed. Very somnolent, difficult to arouse, stat ABG done at the bedside- adequate gas exchange, accucheck done and is within normal range Currently NPO for thoracentesis, heparin on hold for procedure. Apparently patient had received 2mg IV lorazepam for reported agitation earlier in this morning. Objective - Exam Narrative Exam: Gen: Not in acute distress, lying in bed, obese HEENT: Normocephalic, atraumatic Neck: supple, no JVD Heart: S1 and S2 reg, no murmurs, rubs or gallop Lungs: bilat crackles, no wheeze Abd: soft, non tender, non distended, normal BS Ext: No edema, no clubbing, no cyanosis, Neuro: Awake,alert, oriented x 3, moves all ext, non focal Psych:Normal mood Vital Signs - 12hr 05/10/14/18 10/14/18 22:00 23:00 23:14 Temperature Pulse Rate 94 H 86 86 Pulse Rate [ Bilateral Throughout] Pulse Rate [ From Monitor] Respiratory 16 17 Rate Respiratory Rate [Bilateral Throughout] Blood Pressure 149/75 148/67 148/67 O2 Sat by Pulse 93 92 Oximetry 10/14/18 10/15/18 10/15/18 23:15 00:00 01:00 Temperature 99.0 F Pulse Rate 85 138 H 127 H Pulse Rate [ Bilateral Throughout] Pulse Rate [ 93 H From Monitor] Respiratory 21 21 18 Rate Respiratory Rate [Bilateral Throughout] Blood Pressure 148/67 152/63 152/63 O2 Sat by Pulse 91 90 90 Oximetry 10/15/18 10/15/18 10/15/18 02:00 03:00 04:00 Temperature 98.7 F Pulse Rate 140 H 140 H 125 H Pulse Rate [ Bilateral Throughout] Pulse Rate [ 93 H From Monitor] Respiratory 22 21 17 Rate Respiratory Rate [Bilateral Throughout] Blood Pressure 126/72 134/83 134/83 O2 Sat by Pulse 92 94 100 Oximetry 10/15/18 10/15/18 10/15/18 05:00 05:33 06:00 Temperature Pulse Rate 140 H 139 H 140 H Pulse Rate [ Bilateral Throughout] Pulse Rate [ From Monitor] Respiratory 30 H 18 Rate Respiratory Rate [Bilateral Throughout] Blood Pressure 111/67 111/67 134/86 O2 Sat by Pulse 91 91 Oximetry 10/15/18 10/15/18 10/15/18 06:25 07:00 08:00 Temperature 97.9 F Pulse Rate 140 H 139 H 140 H Pulse Rate [ Bilateral Throughout] Pulse Rate [ 139 H From Monitor] Respiratory 14 27 H Rate Respiratory Rate [Bilateral Throughout] Blood Pressure 134/86 150/95 148/92 O2 Sat by Pulse 91 88 Oximetry 10/15/18 10/15/18 08:55 09:00 Temperature Pulse Rate Pulse Rate [ 139 H Bilateral Throughout] Pulse Rate [ From Monitor] Respiratory Rate Respiratory 20 Rate [Bilateral Throughout] Blood Pressure O2 Sat by Pulse 94 Oximetry Constitutional: no acute distress, alert, lethargic Eyes: non-icteric ENT: oropharynx moist Neck: supple, no lymphadenopathy Effort: mildly labored Ascultation: Bilateral: diminished breath sounds (upper airway referred sounds) Cardiovascular: regular rate and rhythm, other (S1,S2, no murmurs, gallops or rubs) Gastrointestinal: normoactive bowel sounds, soft, non-tender Integumentary: normal Extremities: no cyanosis, no edema Neurologic: pupils equal and round, unable to assess, other (moves all extremities to painful stimuli) Psychiatric: mood appropriate CBC and BMP: 10/16/18 04:51 10/16/18 04:51 ABG, PT/INR, D-dimer: ABG POC ABG pH 7.341 (7.35-7.45) L 10/09/18 14:52 POC ABG pCO2 36.2 (35-45) 10/09/18 14:52 POC ABG pO2 62 (80-105) L 10/09/18 14:52 POC ABG HCO3 19.6 (22-26 mml/L) 10/09/18 14:52 POC ABG Total CO2 21 (23-27mmol/L) 10/09/18 14:52 POC ABG O2 Sat 90 10/09/18 14:52 PT/INR, D-dimer PT 14.8 Sec. (12.2-14.9) 10/09/18 00:54 INR 1.09 (0.87-1.13) 10/09/18 00:54 532.59 ng/mlDDU (0-234) H 10/08/18 21:01 Abnormal lab findings: Abnormal Labs 10/08/18 10/08/18 10/08/18 20:40 20:40 21:01 WBC RBC Hgb Hct Lymph % (Auto) [place] # Seg Neutrophils % 74.6 H Seg Neutrophils # 7.9 H D-Dimer 532.59 H POC ABG pH POC ABG pO2 Sodium 132 L Chloride 96.5 L Creatinine 0.7 L Glucose 109 H POC Glucose Calcium AST 45 H Total Creatine Kinase CK-MB (CK-2) NT-Pro-B Natriuret Pep 10/08/18 10/09/18 10/09/18 21:01 02:12 05:24 WBC RBC Hgb Hct Lymph % (Auto) [place] # Seg Neutrophils % Seg Neutrophils # D-Dimer POC ABG pH POC ABG pO2 Sodium Chloride Creatinine Glucose POC Glucose 125 H Calcium AST Total Creatine Kinase 620 H CK-MB (CK-2) 12.0 H NT-Pro-B Natriuret Pep 1527 H 10/09/18 10/09/18 10/09/18 07:47 08:02 11:59 WBC RBC Hgb Hct Lymph % (Auto) [place] # Seg Neutrophils % Seg Neutrophils # D-Dimer POC ABG pH POC ABG pO2 Sodium Chloride Creatinine Glucose POC Glucose 130 H 150 H Calcium AST Total Creatine Kinase 541 H CK-MB (CK-2) 10.1 H NT-Pro-B Natriuret Pep 10/09/18 10/10/18 10/10/18 14:52 03:01 03:01 WBC 13.5 H RBC Hgb Hct Lymph % (Auto) 11.5 L [place] # 0.9 H Seg Neutrophils % 81.3 H Seg Neutrophils # 11.0 H D-Dimer POC ABG pH 7.341 L POC ABG pO2 62 L Sodium 133 L Chloride 95.7 L Creatinine 0.7 L Glucose 140 H POC Glucose Calcium AST Total Creatine Kinase CK-MB (CK-2) NT-Pro-B Natriuret Pep 10/10/18 10/11/18 10/12/18 06:46 03:48 23:14 WBC RBC Hgb 10.9 L Hct 32.8 L Lymph % (Auto) [place] # Seg Neutrophils % Seg Neutrophils # D-Dimer POC ABG pH POC ABG pO2 Sodium Chloride Creatinine Glucose POC Glucose 139 H 242 H Calcium AST Total Creatine Kinase CK-MB (CK-2) NT-Pro-B Natriuret Pep 10/13/18 10/13/18 10/13/18 05:05 08:20 11:35 WBC RBC Hgb 11.3 L Hct 33.4 L Lymph % (Auto) [place] # Seg Neutrophils % Seg Neutrophils # D-Dimer POC ABG pH POC ABG pO2 Sodium Chloride Creatinine Glucose POC Glucose 205 H 297 H Calcium AST Total Creatine Kinase CK-MB (CK-2) NT-Pro-B Natriuret Pep 10/13/18 10/13/18 10/14/18 15:58 21:46 05:33 WBC 15.0 H RBC 3.56 L Hgb 10.7 L Hct 33.0 L Lymph % (Auto) [place] # Seg Neutrophils % Seg Neutrophils # D-Dimer POC ABG pH POC ABG pO2 Sodium Chloride Creatinine Glucose POC Glucose 209 H 282 H Calcium AST Total Creatine Kinase CK-MB (CK-2) NT-Pro-B Natriuret Pep 05/10/14/18 10/14/18 05:33 08:28 11:40 WBC RBC Hgb Hct Lymph % (Auto) [place] # Seg Neutrophils % Seg Neutrophils # D-Dimer POC ABG pH POC ABG pO2 Sodium 131 L Chloride 94.1 L Creatinine 0.7 L Glucose 230 H POC Glucose 275 H 363 H Calcium 8.2 L AST Total Creatine Kinase CK-MB (CK-2) NT-Pro-B Natriuret Pep 10/14/18 10/14/18 10/15/18 16:16 22:45 06:07 WBC 13.0 H RBC 3.63 L Hgb 11.1 L Hct 33.6 L Lymph % (Auto) [place] # Seg Neutrophils % Seg Neutrophils # D-Dimer POC ABG pH POC ABG pO2 Sodium Chloride Creatinine Glucose POC Glucose 311 H 264 H Calcium AST Total Creatine Kinase CK-MB (CK-2) NT-Pro-B Natriuret Pep 10/15/18 10/15/18 06:07 07:56 WBC RBC Hgb Hct Lymph % (Auto) [place] # Seg Neutrophils % Seg Neutrophils # D-Dimer POC ABG pH POC ABG pO2 Sodium 133 L Chloride 94.6 L Creatinine 0.5 L Glucose 217 H POC Glucose 223 H Calcium AST Total Creatine Kinase CK-MB (CK-2) NT-Pro-B Natriuret Pep Chest x-ray: image reviewed CT scan - chest: image reviewed (Small bilateral PEs, pleural effusion) Allied health notes reviewed: RT (Stat ABG at the bedside, results reviewed)
--- NOTE | 2018-10-15 09:21 | Progress Note ---
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 Outpatient cardiac follow up post discharge for asymptomatic valvular heart lesions. Otherwise, conservative cardiac management. Subjective Date of service: 10/15/18 Interval history: Stable sinus rhythm on telemetry. Objective Vital Signs Temp Pulse Pulse Pulse Resp Resp BP 10/15/18 09:00 10/15/18 08:55 139 H 20 10/15/18 08:00 97.9 F 140 H 139 H 27 H 148/92 10/15/18 07:00 139 H 14 150/95 10/15/18 06:25 140 H 134/86 10/15/18 06:00 140 H 18 134/86 10/15/18 05:33 139 H 111/67 10/15/18 05:00 140 H 30 H 111/67 10/15/18 04:00 98.7 F 125 H 93 H 17 134/83 10/15/18 03:00 140 H 21 134/83 10/15/18 02:00 140 H 22 126/72 10/15/18 01:00 127 H 18 152/63 10/15/18 00:00 99.0 F 138 H 93 H 21 152/63 10/14/18 23:15 85 21 148/67 10/14/18 23:14 86 148/67 10/14/18 23:00 86 17 148/67 10/14/18 22:00 94 H 16 149/75 10/14/18 21:00 95 H 15 135/81 10/14/18 20:15 94 H 20 10/14/18 20:00 99.5 F 91 H 82 26 H 147/79 10/14/18 19:55 92 H 22 10/14/18 19:00 92 H 21 142/81 10/14/18 18:00 98 H 21 142/81 10/14/18 17:32 90 10/14/18 17:00 91 H 29 H 142/81 10/14/18 16:00 96.8 F L 90 90 23 137/76 10/14/18 15:00 87 18 126/78 10/14/18 14:03 86 21 10/14/18 14:00 85 24 137/76 10/14/18 13:00 97 H 18 150/76 10/14/18 12:00 97.2 F L 90 90 17 145/84 10/14/18 11:00 91 H 23 140/80 10/14/18 10:00 85 20 133/73 Pulse Ox 10/15/18 09:00 94 10/15/18 08:55 10/15/18 08:00 88 10/15/18 07:00 91 10/15/18 06:25 10/15/18 06:00 91 10/15/18 05:33 10/15/18 05:00 91 10/15/18 04:00 100 10/15/18 03:00 94 10/15/18 02:00 92 10/15/18 01:00 90 10/15/18 00:00 90 10/14/18 23:15 91 10/14/18 23:14 10/14/18 23:00 92 10/14/18 22:00 93 10/14/18 21:00 93 10/14/18 20:15 10/14/18 20:00 97 10/14/18 19:55 10/14/18 19:00 94 10/14/18 18:00 87 10/14/18 17:32 10/14/18 17:00 10/14/18 16:00 94 10/14/18 15:00 91 10/14/18 14:03 10/14/18 14:00 95 10/14/18 13:00 95 10/14/18 12:00 100 10/14/18 11:00 97 10/14/18 10:00 96 - Physical Examination General: No Apparent Distress Cardiac: Positive: Reg Rate and Rhythm Extremities: Absent: edema - Labs and Meds CBC 10/15/18 Range/Units 06:07 WBC 13.0 H (4.5-11.0) K/mm3 RBC 3.63 L (3.65-5.03) M/mm3 Hgb 11.1 L (11.8-15.2) gm/dl Hct 33.6 L (35.5-45.6) % Plt Count 225 (140-440) K/mm3 Comprehensive Metabolic Panel 10/15/18 Range/Units 06:07 Sodium 133 L (137-145) mmol/L Potassium 4.3 (3.6-5.0) mmol/L Chloride 94.6 L (98-107) mmol/L Carbon Dioxide 27 (22-30) mmol/L BUN 15 (9-20) mg/dL Creatinine 0.5 L (0.8-1.5) mg/dL Glucose 217 H (75-100) mg/dL Calcium 8.4 (8.4-10.2) mg/dL
[2018-10-15] MEDS: AMARYL PO SCH (09:22)
[2018-10-15] MEDS: PROTONIX PO SCH (09:23)
[2018-10-15] MEDS: FOLVITE PO SCH (09:23)
[2018-10-15] MEDS: VITAMIN B-1 PO SCH (09:23)
--- NOTE | 2018-10-15 09:29 | Progress Note ---
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 Acute on chronic systolic chf, EF 40-45% Cont Lasix Atrial fibrillation with RVR and hypercoagulable state -Cardiology following rate control per cardiology, on oral dilt, tsh and mg wnl Bilateral pleural effusion R > L For thoraxcentesis right today Abdominal pain is nonspecific History of GERD, PPI CT abdomen and pelvis, shows no acute findings GI input appreciated Alcohol dependence and withdrawal CIWA protocol, IV fluids, Folate and Thiamine Full code History Interval history: Less shortness of breath Agitated this morning, given Ativan Hospitalist Physical - Physical exam Narrative exam: Gen: Not in acute distress, lying in bed, obese HEENT: Normocephalic, atraumatic Neck: supple, no JVD Heart: S1 and S2 reg, no murmurs, rubs or gallop Lungs: bilat crackles, dull right base, no wheeze Abd: soft, non tender, non distended, normal BS Ext: No edema, no clubbing, no cyanosis, Neuro: Sedated, moves all ext, non focal - Constitutional Vitals: Temp Pulse Resp BP Pulse Ox 97.9 F 140 H 20 136/94 94 10/15/18 08:00 10/15/18 09:19 10/15/18 08:55 10/15/18 09:19 10/15/18 09:00 General appearance: Present: no acute distress, obese Results - Labs CBC & Chem 7: 10/15/18 06:07 10/15/18 06:07 Labs: Laboratory Last Values WBC 13.0 K/mm3 (4.5-11.0) H 10/15/18 06:07 RBC 3.63 M/mm3 (3.65-5.03) L 10/15/18 06:07 Hgb 11.1 gm/dl (11.8-15.2) L 10/15/18 06:07 Hct 33.6 % (35.5-45.6) L 10/15/18 06:07 MCV 93 fl (84-94) 10/15/18 06:07 MCH 31 pg (28-32) 10/15/18 06:07 MCHC 33 % (32-34) 10/15/18 06:07 RDW 14.2 % (13.2-15.2) 10/15/18 06:07 Plt Count 225 K/mm3 (140-440) 10/15/18 06:07 Lymph % (Auto) 11.5 % (13.4-35.0) L 10/10/18 03:01 [place] % (Auto) 6.9 % (0.0-7.3) 10/10/18 03:01 Eos % (Auto) 0.1 % (0.0-4.3) 10/10/18 03:01 Baso % (Auto) 0.2 % (0.0-1.8) 10/10/18 03:01 Lymph # 1.6 K/mm3 (1.2-5.4) 10/10/18 03:01 [place] # 0.9 K/mm3 (0.0-0.8) H 10/10/18 03:01 Eos # 0.0 K/mm3 (0.0-0.4) 10/10/18 03:01 Baso # 0.0 K/mm3 (0.0-0.1) 10/10/18 03:01 Seg Neutrophils % 81.3 % (40.0-70.0) H 10/10/18 03:01 Seg Neutrophils # 11.0 K/mm3 (1.8-7.7) H 10/10/18 03:01 PT 14.8 Sec. (12.2-14.9) 10/09/18 00:54 INR 1.09 (0.87-1.13) 10/09/18 00:54 APTT 32.8 Sec. (24.2-36.6) 10/09/18 00:54 532.59 ng/mlDDU (0-234) H 10/08/18 21:01 Heparin Anti-Xa Level 0.59 U.I./ml (0.3-0.7) 10/14/18 11:24 POC ABG pH 7.341 (7.35-7.45) L 10/09/18 14:52 POC ABG pCO2 36.2 (35-45) 10/09/18 14:52 POC ABG pO2 62 (80-105) L 10/09/18 14:52 POC ABG HCO3 19.6 (22-26 mml/L) 10/09/18 14:52 POC ABG Total CO2 21 (23-27mmol/L) 10/09/18 14:52 POC ABG O2 Sat 90 10/09/18 14:52 POC ABG Base Excess -6 ((-2) - (+3)mmol/L) 10/09/18 14:52 36 % 10/09/18 14:52 Sodium 133 mmol/L (137-145) L 10/15/18 06:07 Potassium 4.3 mmol/L (3.6-5.0) 10/15/18 06:07 Chloride 94.6 mmol/L (98-107) L 10/15/18 06:07 Carbon Dioxide 27 mmol/L (22-30) 10/15/18 06:07 16 mmol/L 10/15/18 06:07 BUN 15 mg/dL (9-20) 10/15/18 06:07 0.5 mg/dL (0.8-1.5) L 10/15/18 06:07 Estimated GFR > 60 ml/min 10/15/18 06:07 30 % 10/15/18 06:07 Glucose 217 mg/dL (75-100) H 10/15/18 06:07 POC Glucose 223 (70-105) H 10/15/18 07:56 Calcium 8.4 mg/dL (8.4-10.2) 10/15/18 06:07 Magnesium 2.00 mg/dL (1.7-2.3) 10/09/18 10:44 0.50 mg/dL (0.1-1.2) 10/08/18 20:40 AST 45 units/L (5-40) H 10/08/18 20:40 ALT 43 units/L (7-56) 10/08/18 20:40 58 units/L (35-129) 10/08/18 20:40 541 units/L (55-170) H 10/09/18 07:47 CK-MB (CK-2) 10.1 ng/mL (0.0-4.0) H 10/09/18 07:47 CK-MB (CK-2) Rel Index 1.8 (0-4) 10/09/18 07:47 0.010 ng/mL (0.00-0.029) 10/09/18 07:47 NT-Pro-B Natriuret Pep 1527 pg/mL (0-900) H 10/08/18 21:01 7.2 g/dL (6.3-8.2) 10/08/18 20:40 4.2 g/dL (3.9-5) 10/08/18 20:40 1.4 % 10/08/18 20:40 17 units/L (13-60) 10/08/18 20:40 TSH 1.230 mlU/mL (0.270-4.200) 10/09/18 10:44 Straw (Yellow) 10/09/18 00:37 Clear (Clear) 10/09/18 00:37 7.0 (5.0-7.0) 10/09/18 00:37 Ur Specific [place] 1.021 (1.003-1.030) 10/09/18 00:37 <15 mg/dl mg/dL (Negative) 10/09/18 00:37 Neg mg/dL (Negative) 10/09/18 00:37 Neg mg/dL (Negative) 10/09/18 00:37 Neg (Negative) 10/09/18 00:37 Neg (Negative) 10/09/18 00:37 Neg (Negative) 10/09/18 00:37 < 2.0 mg/dL (<2.0) 10/09/18 00:37 Ur Leukocyte Esterase Neg (Negative) 10/09/18 00:37 < 1.0 /HPF (0.0-6.0) 10/09/18 00:37 1.0 /HPF (0.0-6.0) 10/09/18 00:37 Active Medications - Current Medications Current Medications: Generic Name Dose Route Start Last Admin Trade Name Freq PRN Reason Stop Dose Admin Acetaminophen 650 mg 10/09/18 01:46 10/11/18 20:24 Tylenol PO 650 mg Q4H PRN Administration Pain MILD(1-3)/Fever >100.5/[place] Albuterol 2.5 mg 10/09/18 12:37 Proventil IH Q6HRT PRN Shortness Of Breath Albuterol/Ipratropium 1 ampul 10/10/18 08:00 10/15/18 08:55 Duoneb *Not For Prn Use* IH Not Given TIDRT DEIDRA Amlodipine Besylate 5 mg 10/09/18 13:00 10/15/18 09:19 Norvasc PO 5 mg QDAY DEIDRA Administration Arformoterol Tartrate 15 mcg 10/12/18 14:00 10/15/18 08:55 Brovana Nebu IH 15 mcg Q12HRT DEIDRA Administration Benzonatate 100 mg 10/13/18 17:00 10/15/18 05:33 Tessalon Perles PO 100 mg Q8HR DEIDRA Administration Budesonide 0.5 mg 10/12/18 20:00 10/15/18 08:55 Pulmicort IH 0.5 mg Q12HRT DEIDRA Administration Dextrose 50 ml 10/09/18 04:38 D50w (25gm) Syringe IV PRN PRN Hypoglycemia Diltiazem HCl 60 mg 10/09/18 09:00 10/15/18 05:33 Cardizem PO 60 mg Q6HR DEIDRA Administration Folic Acid 1 mg 10/09/18 11:00 10/15/18 09:23 Folvite PO Not Given QDAY DEIDRA Furosemide 40 mg 10/12/18 10:00 10/15/18 05:32 Lasix IV 40 mg 0600,1800 DEIDRA Administration Glimepiride 4 mg 10/13/18 10:00 10/15/18 09:22 Amaryl PO Not Given DAILY DEIDRA Hydralazine HCl 10 mg 10/09/18 15:17 Apresoline IV Q4HR PRN BP >160/100 Heparin Sodium/Sodium Chloride 25,000 unit in 500 mls @ 30 mls/hr 10/09/18 01:00 10/14/18 18:43 Heparin/ 0.45% Nacl-25,000 Unit/500 Ml IV 1,500 units/hr TITR DEIDRA 30 mls/hr Administration Protocol 1,500 UNITS/HR Insulin Human Isoph/Insulin Regular 8 unit 10/14/18 10:00 10/15/18 08:12 Humulin 70/30 SUB-Q Not Given BIDDIAB DEIDRA Insulin Human Regular 0 units 10/14/18 18:00 10/15/18 08:13 Humulin R SUB-Q 3 units ACHS DEIDRA Administration Protocol Lisinopril 10 mg 10/09/18 13:00 10/15/18 09:19 Zestril PO 10 mg QDAY DEIDRA Administration Lorazepam 1 mg 10/09/18 02:16 10/15/18 07:20 Ativan IV 1 mg Q1HR PRN Administration CIWA-Ar 8-15 Metformin HCl 500 mg 10/13/18 17:00 10/15/18 07:26 Glucophage PO Not Given BIDDIAB DEIDRA Methylprednisolone Sodium Succinate 60 mg 10/14/18 17:00 10/15/18 09:22 Solu-Medrol IV 60 mg Q8H DEIDRA Administration Metoprolol Succinate 25 mg 10/09/18 13:00 10/15/18 09:17 Toprol Xl PO 25 mg QDAY DEIDRA Administration Ondansetron HCl 4 mg 10/09/18 01:46 Zofran IV Q8H PRN Nausea And Vomiting Pantoprazole Sodium 40 mg 10/09/18 11:00 10/15/18 09:23 Protonix PO Not Given QDAY DEIDRA Pravastatin Sodium 10 mg 10/09/18 22:00 10/14/18 21:34 Pravachol PO 10 mg QHS DEIDRA Administration Sodium Chloride 10 ml 10/09/18 10:00 10/15/18 09:20 Sodium Chloride Flush Syringe 10 Ml IV 10 ml BID DEIDRA Administration Sodium Chloride 10 ml 10/09/18 01:46 10/15/18 04:11 Sodium Chloride Flush Syringe 10 Ml IV 10 ml PRN PRN Administration LINE FLUSH Thiamine HCl 100 mg 10/09/18 11:00 10/15/18 09:23 Vitamin B-1 PO Not Given QDAY [facility] Nutrition/Malnutrition Assess - Dietary Evaluation Nutrition/Malnutrition Findings: Nutrition Notes Start: 10/09/18 14:34 Freq: Status: Active Protocol: Document 10/10/18 15:18 RM (Rec: 10/10/18 15:21 RM [id number]) Nutrition Notes Initial or Follow up Assessment Current Diagnosis COPD,Diabetes,Hypertension, Heart Failure,Hyperlipidemia Other Pertinent Diagnosis Abdominal pain, N/V, Alcohol abuse, GERD Current Diet Cardiac Labs/Tests Reviewed Pertinent Medications Reviewed Height 6 ft Weight 104.1 kg [place] Body Weight (kg) 80.90 BMI 31.1 Subjective/Other Information Pt daughter present at time of visit. Reviewed DM diet education. Gave handout. Burn Absent Trauma Absent #1 Nutrition Diagnosis Food and nutrition-related knowledge deficit Etiology lack of prior education As Evidenced by Signs and Symptoms pt and pt daughter desire for education Nutrition Intervention Teaching Recipient Family Learning Readiness Good Teaching Methods Discussion,Handout Response to Teaching Verbalize understanding Education Handouts Provided Carbohydrate counting for people with diabetes Barriers to Learning No Barriers RD phone number provided Yes Patient aware of follow up options Yes Goal #1 Utilize carbohydrate counting Revisit per MD consult or patient Sign Off request:
[2018-10-15 11:05] LABS: INR 1.07 (0.87-1.13); Partial Thromboplastin Time 25.6 Sec. (24.2-36.6)
[2018-10-15] MEDS: LOPRESSOR IV PRN ×3 (12:34→19:15)
--- NOTE | 2018-10-15 15:07 | Procedure Note ---
Date of procedure: 10/15/18 Pre-op diagnosis: right pleural effusion Post-op diagnosis: same Procedure: US thoracentesis, right Findings: moderate right pleural fluid Anesthesia: local Surgeon: RU KENNEDY Estimated blood loss: none Pathology: list (120cc) Specimen disposition: to lab Condition: stable Disposition: floor
--- NOTE | 2018-10-15 15:24 | Ultrasound Report ---
ULTRASOUND THORACENTESIS History: Right pleural effusion Description of procedure: Informed consent was obtained. Sterile technique was utilized. 1% lidocaine for skin anesthesia. Using ultrasound guidance, a 5 [place] centesis needle was advanced into the right pleural space. There was spontaneous return of clear yellow fluid. 1000 cc of fluid was aspirated. 120 cc of fluid was sent to lab for analysis. No complications. Impression: Successful ultrasound-guided right thoracentesis.
[2018-10-15 16:54] LABS: Total Cells Counted 100 /mm3
--- NOTE | 2018-10-15 18:59 | XRay Report ---
PROCEDURE: XR CHEST 1V AP TECHNIQUE: Chest radiograph single view. HISTORY: sob, recent right thora FINDINGS: Frontal view of the chest was acquired and compared to the prior examination of October 08. There is cardiomegaly and mild pulmonary edema similar to prior examination. No acute consolidative infiltrate is seen. There is no pneumothorax. IMPRESSION: Mild pulmonary edema similar to prior exam This document is electronically signed by Ender Nielsen MD., Oct 15 2018 06:57:32 PM ET
[2018-10-15] MEDS: TYLENOL PO PRN (21:31)
[2018-10-15] MEDS: PRAVACHOL PO SCH (21:31)
[2018-10-15] MEDS: HEPARIN/ 0.45% NACL-25,000 UNIT/500 ML 25,000 UNIT/500 ML BAG IV SCH (22:51)
[2018-10-16] MEDS: SOLU-Medrol IV SCH ×3 (01:32→17:06)
[2018-10-16] MEDS: CARDIZEM PO SCH ×5 (01:33→23:31)
[2018-10-16 05:20] LABS: Hematocrit 34.7 % (35.5-45.6); Hemoglobin 11.3 gm/dl (11.8-15.2); Mean Corpuscular HGB Conc 33 % (32-34); Mean Corpuscular Volume 93 fl (84-94); Platelet Count 250 K/mm3 (140-440); Red Blood Count 3.75 M/mm3 (3.65-5.03); Red Cell Distribution Width 14.2 % (13.2-15.2)
[2018-10-16] MEDS: TESSALON PERLES PO SCH ×3 (05:42→21:35)
[2018-10-16] MEDS: LASIX IV SCH ×2 (05:43→17:05)
[2018-10-16 05:46] LABS: BUN/Creatinine Ratio 30; Blood Urea Nitrogen 21 mg/dL (9-20); Calcium 8.1 mg/dL (8.4-10.2); Hemolysis Index 4
[2018-10-16] MEDS: PULMICORT IH SCH ×2 (07:27→23:01)
[2018-10-16] MEDS: DUONEB *Not for PRN Use IH SCH ×3 (07:27→23:01)
[2018-10-16] MEDS: BROVANA NEBU IH SCH ×2 (07:28→23:00)
--- NOTE | 2018-10-16 09:09 | Progress Note ---
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 Outpatient cardiac follow up post discharge for asymptomatic valvular heart lesions. Otherwise, conservative cardiac management. Subjective Date of service: 10/16/18 Interval history: Stable sinus rhythm on telemetry. Objective Vital Signs Temp Pulse Pulse Pulse Resp Resp BP 10/16/18 07:37 87 16 10/16/18 07:27 88 20 10/16/18 06:00 84 16 120/70 10/16/18 05:42 84 120/70 10/16/18 05:00 82 16 120/70 10/16/18 04:00 98.4 F 84 83 15 120/70 10/16/18 03:00 88 20 125/67 10/16/18 02:00 96 H 37 H 124/65 10/16/18 01:33 86 124/65 10/16/18 01:00 84 17 124/65 10/16/18 00:20 98.6 F 10/16/18 00:00 86 84 21 124/65 10/15/18 23:26 84 18 116/64 10/15/18 23:00 85 19 116/64 10/15/18 22:00 88 15 112/66 10/15/18 21:51 97.5 F L 10/15/18 21:40 84 20 10/15/18 21:00 86 12 112/66 10/15/18 20:00 78 109 H 19 122/23 10/15/18 19:15 144 H 106/62 10/15/18 19:00 145 H 25 H 106/62 10/15/18 18:00 145 H 23 125/81 10/15/18 17:31 103 H 125/81 10/15/18 17:00 143 H 24 125/81 10/15/18 16:36 142 H 127/74 10/15/18 16:00 98.5 F 144 H 139 H 16 121/70 10/15/18 15:12 144 H 121/70 10/15/18 13:00 142 H 18 150/97 10/15/18 12:34 143 H 138/90 10/15/18 12:00 98 F 143 H 139 H 18 141/94 10/15/18 11:08 141 H 150/97 10/15/18 11:00 141 H 23 150/97 10/15/18 10:00 140 H 17 141/94 10/15/18 09:19 140 H 136/94 10/15/18 09:17 140 H 136/94 10/15/18 09:12 138 H 20 Pulse Ox 10/16/18 07:37 10/16/18 07:27 96 10/16/18 06:00 97 10/16/18 05:42 10/16/18 05:00 96 10/16/18 04:00 100 10/16/18 03:00 98 10/16/18 02:00 10/16/18 01:33 10/16/18 01:00 97 10/16/18 00:20 10/16/18 00:00 98 10/15/18 23:26 97 10/15/18 23:00 98 10/15/18 22:00 99 10/15/18 21:51 10/15/18 21:40 10/15/18 21:00 97 10/15/18 20:00 98 10/15/18 19:15 10/15/18 19:00 93 10/15/18 18:00 98 10/15/18 17:31 10/15/18 17:00 98 10/15/18 16:36 10/15/18 16:00 99 10/15/18 15:12 98 10/15/18 13:00 94 10/15/18 12:34 10/15/18 12:00 96 10/15/18 11:08 10/15/18 11:00 94 10/15/18 10:00 96 10/15/18 09:19 10/15/18 09:17 10/15/18 09:12 - Physical Examination General: No Apparent Distress HEENT: Positive: PERRL Neck: Positive: trachea midline Cardiac: Positive: Reg Rate and Rhythm Lungs: Positive: Decreased Breath Sounds Neuro: Positive: Grossly Intact Extremities: Absent: edema - Labs and Meds Coagulation 10/15/18 Range/Units 10:30 PT 14.6 (12.2-14.9) Sec. INR 1.07 (0.87-1.13) APTT 25.6 (24.2-36.6) Sec. CBC 10/16/18 Range/Units 04:51 WBC 11.8 H (4.5-11.0) K/mm3 RBC 3.75 (3.65-5.03) M/mm3 Hgb 11.3 L (11.8-15.2) gm/dl Hct 34.7 L (35.5-45.6) % Plt Count 250 (140-440) K/mm3 Comprehensive Metabolic Panel 10/16/18 Range/Units 04:51 Sodium 136 L (137-145) mmol/L Potassium 4.3 (3.6-5.0) mmol/L Chloride 97.0 L (98-107) mmol/L Carbon Dioxide 30 (22-30) mmol/L BUN 21 H (9-20) mg/dL Creatinine 0.7 L (0.8-1.5) mg/dL Glucose 232 H (75-100) mg/dL Calcium 8.1 L (8.4-10.2) mg/dL
--- NOTE | 2018-10-16 09:28 | Progress Note ---
Assessment and Plan Assessment and plan: 78-year-old man presented to the hospital of abdominal pain and trouble breathing -Patient has a history of alcoholism drinks 10-12 beers a day PMH; hypertension, diabetes, hyperlipidemia, alcohol abuse, former smoker Acute resp failure with hypoxia Was on high flow oxygen, now on NC Bilateral pulmonary emboli Continue heparin drip, venous Dopplers of lower extremities neg will transition to eliquis when patient is approaching readiness for dc COPD exacerbation steroids, nebs, LABA and inhaled steroid, dw key maker Acute on chronic systolic chf, EF 40-45% Cont Lasix Atrial fibrillation with RVR and hypercoagulable state -Cardiology following rate control per cardiology, on oral dilt, tsh and mg wnl Bilateral pleural effusion R > L s/p thoracentesis Abdominal pain is nonspecific History of GERD, PPI CT abdomen and pelvis, shows no acute findings GI input appreciated Alcohol dependence and withdrawal CIWA protocol, IV fluids, Folate and Thiamine Full code History Interval history: Less shortness of breath No chest pain Hospitalist Physical - Physical exam Narrative exam: Gen: Not in acute distress, lying in bed, obese HEENT: Normocephalic, atraumatic Neck: supple, no JVD Heart: S1 and S2 reg, no murmurs, rubs or gallop Lungs: Dull right base, no wheeze Abd: soft, non tender, non distended, normal BS Ext: No edema, no clubbing, no cyanosis, Neuro: Sedated, moves all ext, non focal - Constitutional Vitals: Temp Pulse Resp BP Pulse Ox 98.4 F 87 16 120/70 96 10/16/18 04:00 10/16/18 07:37 10/16/18 07:37 10/16/18 06:00 10/16/18 07:27 General appearance: Present: no acute distress, obese Results - Labs CBC & Chem 7: 10/17/18 04:30 10/17/18 04:30 Labs: Laboratory Last Values WBC 11.8 K/mm3 (4.5-11.0) H 10/16/18 04:51 RBC 3.75 M/mm3 (3.65-5.03) 10/16/18 04:51 Hgb 11.3 gm/dl (11.8-15.2) L 10/16/18 04:51 Hct 34.7 % (35.5-45.6) L 10/16/18 04:51 MCV 93 fl (84-94) 10/16/18 04:51 MCH 30 pg (28-32) 10/16/18 04:51 MCHC 33 % (32-34) 10/16/18 04:51 RDW 14.2 % (13.2-15.2) 10/16/18 04:51 Plt Count 250 K/mm3 (140-440) 10/16/18 04:51 Lymph % (Auto) 11.5 % (13.4-35.0) L 10/10/18 03:01 [place] % (Auto) 6.9 % (0.0-7.3) 10/10/18 03:01 Eos % (Auto) 0.1 % (0.0-4.3) 10/10/18 03:01 Baso % (Auto) 0.2 % (0.0-1.8) 10/10/18 03:01 Lymph # 1.6 K/mm3 (1.2-5.4) 10/10/18 03:01 [place] # 0.9 K/mm3 (0.0-0.8) H 10/10/18 03:01 Eos # 0.0 K/mm3 (0.0-0.4) 10/10/18 03:01 Baso # 0.0 K/mm3 (0.0-0.1) 10/10/18 03:01 Seg Neutrophils % 81.3 % (40.0-70.0) H 10/10/18 03:01 Seg Neutrophils # 11.0 K/mm3 (1.8-7.7) H 10/10/18 03:01 PT 14.6 Sec. (12.2-14.9) 10/15/18 10:30 INR 1.07 (0.87-1.13) 10/15/18 10:30 APTT 25.6 Sec. (24.2-36.6) 10/15/18 10:30 532.59 ng/mlDDU (0-234) H 10/08/18 21:01 Heparin Anti-Xa Level 0.35 U.I./ml (0.3-0.7) 10/15/18 22:27 POC ABG pH 7.388 (7.35-7.45) 10/15/18 09:35 POC ABG pCO2 46.3 (35-45) H 10/15/18 09:35 POC ABG pO2 90 (80-105) 10/15/18 09:35 POC ABG HCO3 27.9 (22-26 mml/L) 10/15/18 09:35 POC ABG Total CO2 29 (23-27mmol/L) 10/15/18 09:35 POC ABG O2 Sat 97 10/15/18 09:35 POC ABG Base Excess 3 ((-2) - (+3)mmol/L) 10/15/18 09:35 36 % 10/15/18 09:35 Sodium 136 mmol/L (137-145) L 10/16/18 04:51 Potassium 4.3 mmol/L (3.6-5.0) 10/16/18 04:51 Chloride 97.0 mmol/L (98-107) L 10/16/18 04:51 Carbon Dioxide 30 mmol/L (22-30) 10/16/18 04:51 13 mmol/L 10/16/18 04:51 BUN 21 mg/dL (9-20) H 10/16/18 04:51 0.7 mg/dL (0.8-1.5) L 10/16/18 04:51 Estimated GFR > 60 ml/min 10/16/18 04:51 30 % 10/16/18 04:51 Glucose 232 mg/dL (75-100) H 10/16/18 04:51 POC Glucose 204 (70-105) H 10/15/18 21:21 Calcium 8.1 mg/dL (8.4-10.2) L 10/16/18 04:51 Magnesium 2.00 mg/dL (1.7-2.3) 10/09/18 10:44 0.50 mg/dL (0.1-1.2) 10/08/18 20:40 AST 45 units/L (5-40) H 10/08/18 20:40 ALT 43 units/L (7-56) 10/08/18 20:40 58 units/L (35-129) 10/08/18 20:40 541 units/L (55-170) H 10/09/18 07:47 CK-MB (CK-2) 10.1 ng/mL (0.0-4.0) H 10/09/18 07:47 CK-MB (CK-2) Rel Index 1.8 (0-4) 10/09/18 07:47 0.010 ng/mL (0.00-0.029) 10/09/18 07:47 NT-Pro-B Natriuret Pep 1527 pg/mL (0-900) H 10/08/18 21:01 7.2 g/dL (6.3-8.2) 10/08/18 20:40 4.2 g/dL (3.9-5) 10/08/18 20:40 1.4 % 10/08/18 20:40 17 units/L (13-60) 10/08/18 20:40 TSH 1.230 mlU/mL (0.270-4.200) 10/09/18 10:44 Straw (Yellow) 10/09/18 00:37 Clear (Clear) 10/09/18 00:37 7.0 (5.0-7.0) 10/09/18 00:37 Ur Specific [place] 1.021 (1.003-1.030) 10/09/18 00:37 <15 mg/dl mg/dL (Negative) 10/09/18 00:37 Neg mg/dL (Negative) 10/09/18 00:37 Neg mg/dL (Negative) 10/09/18 00:37 Neg (Negative) 10/09/18 00:37 Neg (Negative) 10/09/18 00:37 Neg (Negative) 10/09/18 00:37 < 2.0 mg/dL (<2.0) 10/09/18 00:37 Ur Leukocyte Esterase Neg (Negative) 10/09/18 00:37 < 1.0 /HPF (0.0-6.0) 10/09/18 00:37 1.0 /HPF (0.0-6.0) 10/09/18 00:37 Fluid Type Pleural 10/15/18 15:05 Fluid Color Yellow 10/15/18 15:05 Fluid Appearance Hazy 10/15/18 15:05 Fluid WBC 205 /mm3 10/15/18 15:05 Fluid RBC 745 /mm3 10/15/18 15:05 Fluid Seg Neutrophils 46.0 % 10/15/18 15:05 Fluid Lymphocytes 49.0 % 10/15/18 15:05 Fluid Reactive Lymphs 0 % 10/15/18 15:05 Fluid Monocytes 5.0 % 10/15/18 15:05 Fluid Eosinophils 0 % 10/15/18 15:05 Fluid Basophils 0 % 10/15/18 15:05 Active Medications - Current Medications Current Medications: Generic Name Dose Route Start Last Admin Trade Name Freq PRN Reason Stop Dose Admin Acetaminophen 650 mg 10/09/18 01:46 10/15/18 21:31 Tylenol PO 650 mg Q4H PRN Administration Pain MILD(1-3)/Fever >100.5/DUCK[place] Albuterol 2.5 mg 10/09/18 12:37 Proventil IH Q6HRT PRN Shortness Of Breath Albuterol/Ipratropium 1 ampul 10/10/18 08:00 10/16/18 07:27 Duoneb *Not For Prn Use* IH 1 ampul TIDRT DEIDRA Administration Amlodipine Besylate 5 mg 10/09/18 13:00 10/15/18 09:19 Norvasc PO 5 mg QDAY DEIDRA Administration Arformoterol Tartrate 15 mcg 10/12/18 14:00 10/16/18 07:28 Brovana Nebu IH Not Given Q12HRT DEIDRA Benzonatate 100 mg 10/13/18 17:00 10/16/18 05:42 Tessalon Perles PO 100 mg Q8HR DEIDRA Administration Budesonide 0.5 mg 10/12/18 20:00 10/16/18 07:27 Pulmicort IH 0.5 mg Q12HRT DEIDRA Administration Dextrose 50 ml 10/09/18 04:38 D50w (25gm) Syringe IV PRN PRN Hypoglycemia Diltiazem HCl 60 mg 10/09/18 09:00 10/16/18 05:42 Cardizem PO 60 mg Q6HR DEIDRA Administration Folic Acid 1 mg 10/09/18 11:00 10/15/18 09:23 Folvite PO Not Given QDAY DEIDRA Furosemide 40 mg 10/12/18 10:00 10/16/18 05:43 Lasix IV 40 mg 0600,1800 DEIDRA Administration Glimepiride 4 mg 10/13/18 10:00 10/15/18 09:22 Amaryl PO Not Given DAILY DEIDRA Hydralazine HCl 10 mg 10/09/18 15:17 Apresoline IV Q4HR PRN BP >160/100 Heparin Sodium/Sodium Chloride 25,000 unit in 500 mls @ 30 mls/hr 10/09/18 01:00 10/16/18 01:39 Heparin/ 0.45% Nacl-25,000 Unit/500 Ml IV 1,500 units/hr TITR DEIDRA 30 mls/hr Titration Protocol 1,500 UNITS/HR Insulin Human Isoph/Insulin Regular 8 unit 10/14/18 10:00 10/15/18 16:38 Humulin 70/30 SUB-Q 8 unit BIDDIAB DEIDRA Administration Insulin Human Regular 0 units 10/14/18 18:00 10/15/18 21:34 Humulin R SUB-Q 3 units ACHS DEIDRA Administration Protocol Lisinopril 10 mg 10/09/18 13:00 10/15/18 09:19 Zestril PO 10 mg QDAY DEIDRA Administration Lorazepam 1 mg 10/09/18 02:16 10/15/18 07:20 Ativan IV 1 mg Q1HR PRN Administration CIWA-Ar 8-15 Metformin HCl 500 mg 10/13/18 17:00 10/15/18 16:35 Glucophage PO 500 mg BIDDIAB DEIDRA Administration Methylprednisolone Sodium Succinate 60 mg 10/14/18 17:00 10/16/18 01:32 Solu-Medrol IV 60 mg Q8H DEIDRA Administration Metoprolol Succinate 25 mg 10/09/18 13:00 10/15/18 09:17 Toprol Xl PO 25 mg QDAY [facility] Administration Metoprolol Tartrate 5 mg 10/15/18 12:30 10/15/18 19:15 Lopressor IV 5 mg Q4H PRN Administration HR >130 Ondansetron HCl 4 mg 10/09/18 01:46 Zofran IV Q8H PRN Nausea And Vomiting Pantoprazole Sodium 40 mg 10/09/18 11:00 10/15/18 09:23 Protonix PO Not Given QDAY [facility] Pravastatin Sodium 10 mg 10/09/18 22:00 10/15/18 21:31 Pravachol PO 10 mg QHS DEIDRA Administration Sodium Chloride 10 ml 10/09/18 10:00 10/15/18 21:32 Sodium Chloride Flush Syringe 10 Ml IV 10 ml BID DEIDRA Administration Sodium Chloride 10 ml 10/09/18 01:46 10/15/18 04:11 Sodium Chloride Flush Syringe 10 Ml IV 10 ml PRN PRN Administration LINE FLUSH Thiamine HCl 100 mg 10/09/18 11:00 10/15/18 09:23 Vitamin B-1 PO Not Given QDAY DEIDRA Nutrition/Malnutrition Assess - Dietary Evaluation Nutrition/Malnutrition Findings: Nutrition Notes Start: 10/09/18 14:34 Freq: Status: Active Protocol: Document 10/10/18 15:18 RM (Rec: 10/10/18 15:21 RM [id number]) Nutrition Notes Initial or Follow up Assessment Current Diagnosis COPD,Diabetes,Hypertension, Heart Failure,Hyperlipidemia Other Pertinent Diagnosis Abdominal pain, N/V, Alcohol abuse, GERD Current Diet Cardiac Labs/Tests Reviewed Pertinent Medications Reviewed Height 6 ft Weight 104.1 kg Branch Body Weight (kg) 80.90 BMI 31.1 Subjective/Other Information Pt daughter present at time of visit. Reviewed DM diet education. Gave handout. Burn Absent Trauma Absent #1 Nutrition Diagnosis Food and nutrition-related knowledge deficit Etiology lack of prior education As Evidenced by Signs and Symptoms pt and pt daughter desire for education Nutrition Intervention Teaching Recipient Family Learning Readiness Good Teaching Methods Discussion,Handout Response to Teaching Verbalize understanding Education Handouts Provided Carbohydrate counting for people with diabetes Barriers to Learning No Barriers RD phone number provided Yes Patient aware of follow up options Yes Goal #1 Utilize carbohydrate counting Revisit per MD consult or patient Sign Off request:
[2018-10-16] MEDS: HumuLIN R SUB-Q SCH ×4 (09:49→23:32)
[2018-10-16] MEDS: GLUCOPHAGE PO SCH ×2 (09:50→17:03)
[2018-10-16] MEDS: AMARYL PO SCH (09:51)
[2018-10-16] MEDS: NORVASC PO SCH (09:51)
[2018-10-16] MEDS: FOLVITE PO SCH (09:51)
[2018-10-16] MEDS: TOPROL XL PO SCH (09:52)
[2018-10-16] MEDS: PROTONIX PO SCH (09:52)
[2018-10-16] MEDS: SODIUM CHLORIDE FLUSH SYRINGE 10 ML IV SCH ×2 (09:52→21:37)
[2018-10-16] MEDS: ZESTRIL PO SCH (09:53)
[2018-10-16] MEDS: VITAMIN B-1 PO SCH (09:53)
--- NOTE | 2018-10-16 12:22 | Progress Note ---
Assessment and Plan Acute respiratory failure with hypoxia PaO2 62 on FIO2 36% on admission Bilateral pulmonary emboli Bilateral pleural effusions with atelectasis COPD exacerbation Acute on chronic systolic CHF EF 40-45% Atrial fibrillation with RVR and hypercoagulable state Alcohol dependence and withdrawal Abdominal pain, resolved -Bronchodilators - Wean supplemental oxygen to keep O2 sats 88-90% -Anticoagulation, therapeutic -Monitor closely for bleeding complications -Follow up pleural fluid analysis results -Start oral anticoagulation -[facility] protocol for alcohol abuse disorder -Short course of steroids -PT/OT/Mobility -Aspiration precautions -Accucheck with glycemic control -Target glucose 140-180mg/dL -Incentive spirometry with airway clearance techniques Discharge planning Falls precautions Home oxygen evaluation prior to discharge Subjective Date of service: 10/16/18 Interval history: Patient is seen today for: Acute hypoxic respiratory failure, Acute bilateral pulmonary embolism, Bilateral pleural effusions, COPD Seen and examined at bedside; 24hour events reviewed; nursing and respiratory care staff consulted; no adverse overnight events reported to me; Vitals, labs, medications, chart and imaging reviewed. NO fevers, no nausea or vomiting Sitting up in bed. Denies any chest pain, wants to know when he can start walking. s/p thoracentesis yesterday, post procedure CXR--no pneumothorax Objective Vital Signs - 12hr 10/16/18 10/16/18 10/16/18 01:00 01:33 02:00 Temperature Pulse Rate 84 86 96 H Pulse Rate [ Bilateral Throughout] Pulse Rate [ From Monitor] Respiratory 17 37 H Rate Respiratory Rate [Bilateral Throughout] Blood Pressure 124/65 124/65 124/65 O2 Sat by Pulse 97 Oximetry 10/16/18 10/16/18 10/16/18 03:00 04:00 05:00 Temperature 98.4 F Pulse Rate 88 84 82 Pulse Rate [ Bilateral Throughout] Pulse Rate [ 83 From Monitor] Respiratory 20 15 16 Rate Respiratory Rate [Bilateral Throughout] Blood Pressure 125/67 120/70 120/70 O2 Sat by Pulse 98 100 96 Oximetry 10/16/18 10/16/18 10/16/18 05:42 06:00 07:00 Temperature Pulse Rate 84 84 83 Pulse Rate [ Bilateral Throughout] Pulse Rate [ From Monitor] Respiratory 16 16 Rate Respiratory Rate [Bilateral Throughout] Blood Pressure 120/70 120/70 120/70 O2 Sat by Pulse 97 97 Oximetry 0510/16/18 10/16/18 07:27 07:37 08:00 Temperature Pulse Rate 89 Pulse Rate [ 88 87 Bilateral Throughout] Pulse Rate [ 88 From Monitor] Respiratory 22 Rate Respiratory 20 16 Rate [Bilateral Throughout] Blood Pressure 120/70 O2 Sat by Pulse 96 96 Oximetry 10/16/18 10/16/18 10/16/18 09:00 09:51 09:52 Temperature Pulse Rate 93 H 89 89 Pulse Rate [ Bilateral Throughout] Pulse Rate [ From Monitor] Respiratory 16 Rate Respiratory Rate [Bilateral Throughout] Blood Pressure 136/73 136/73 136/73 O2 Sat by Pulse 97 Oximetry 10/16/18 10/16/18 10/16/18 09:53 10:00 11:00 Temperature Pulse Rate 89 90 84 Pulse Rate [ Bilateral Throughout] Pulse Rate [ From Monitor] Respiratory 17 16 Rate Respiratory Rate [Bilateral Throughout] Blood Pressure 139/73 136/73 136/73 O2 Sat by Pulse 100 100 Oximetry 10/16/18 11:45 Temperature 97.5 F L Pulse Rate Pulse Rate [ Bilateral Throughout] Pulse Rate [ From Monitor] Respiratory Rate Respiratory Rate [Bilateral Throughout] Blood Pressure O2 Sat by Pulse Oximetry Constitutional: no acute distress, alert, lethargic Eyes: non-icteric ENT: oropharynx moist Neck: supple, no lymphadenopathy Effort: mildly labored Ascultation: Bilateral: diminished breath sounds (upper airway referred sounds) Cardiovascular: regular rate and rhythm, other (S1,S2, no murmurs, gallops or rubs) Gastrointestinal: normoactive bowel sounds, soft, non-tender Integumentary: normal Extremities: no cyanosis, no edema Neurologic: normal mental status, non-focal exam, pupils equal and round, motor strength normal and Psychiatric: mood appropriate, affect normal CBC and BMP: 10/17/18 04:30 10/17/18 04:30 ABG, PT/INR, D-dimer: ABG POC ABG pH 7.388 (7.35-7.45) 10/15/18 09:35 POC ABG pCO2 46.3 (35-45) H 10/15/18 09:35 POC ABG pO2 90 (80-105) 10/15/18 09:35 POC ABG HCO3 27.9 (22-26 mml/L) 10/15/18 09:35 POC ABG Total CO2 29 (23-27mmol/L) 10/15/18 09:35 POC ABG O2 Sat 97 10/15/18 09:35 PT/INR, D-dimer PT 14.6 Sec. (12.2-14.9) 10/15/18 10:30 INR 1.07 (0.87-1.13) 10/15/18 10:30 532.59 ng/mlDDU (0-234) H 10/08/18 21:01 Abnormal lab findings: Abnormal Labs 10/08/18 10/08/18 10/08/18 20:40 20:40 21:01 WBC RBC Hgb Hct Lymph % (Auto) [place] # Seg Neutrophils % 74.6 H Seg Neutrophils # 7.9 H D-Dimer 532.59 H Heparin Anti-Xa Level POC ABG pH POC ABG pCO2 POC ABG pO2 Sodium 132 L Chloride 96.5 L BUN Creatinine 0.7 L Glucose 109 H POC Glucose Calcium AST 45 H Total Creatine Kinase CK-MB (CK-2) NT-Pro-B Natriuret Pep 10/08/18 10/09/18 10/09/18 21:01 02:12 05:24 WBC RBC Hgb Hct Lymph % (Auto) [place] # Seg Neutrophils % Seg Neutrophils # D-Dimer Heparin Anti-Xa Level POC ABG pH POC ABG pCO2 POC ABG pO2 Sodium Chloride BUN Creatinine Glucose POC Glucose 125 H Calcium AST Total Creatine Kinase 620 H CK-MB (CK-2) 12.0 H NT-Pro-B Natriuret Pep 1527 H 10/09/18 10/09/18 10/09/18 07:47 08:02 11:59 WBC RBC Hgb Hct Lymph % (Auto) [place] # Seg Neutrophils % Seg Neutrophils # D-Dimer Heparin Anti-Xa Level POC ABG pH POC ABG pCO2 POC ABG pO2 Sodium Chloride BUN Creatinine Glucose POC Glucose 130 H 150 H Calcium AST Total Creatine Kinase 541 H CK-MB (CK-2) 10.1 H NT-Pro-B Natriuret Pep 10/09/18 10/10/18 10/10/18 14:52 03:01 03:01 WBC 13.5 H RBC Hgb Hct Lymph % (Auto) 11.5 L [place] # 0.9 H Seg Neutrophils % 81.3 H Seg Neutrophils # 11.0 H D-Dimer Heparin Anti-Xa Level POC ABG pH 7.341 L POC ABG pCO2 POC ABG pO2 62 L Sodium 133 L Chloride 95.7 L BUN Creatinine 0.7 L Glucose 140 H POC Glucose Calcium AST Total Creatine Kinase CK-MB (CK-2) NT-Pro-B Natriuret Pep 10/10/18 10/11/18 10/12/18 06:46 03:48 23:14 WBC RBC Hgb 10.9 L Hct 32.8 L Lymph % (Auto) [place] # Seg Neutrophils % Seg Neutrophils # D-Dimer Heparin Anti-Xa Level POC ABG pH POC ABG pCO2 POC ABG pO2 Sodium Chloride BUN Creatinine Glucose POC Glucose 139 H 242 H Calcium AST Total Creatine Kinase CK-MB (CK-2) NT-Pro-B Natriuret Pep 10/13/18 10/13/18 10/13/18 05:05 08:20 11:35 WBC RBC Hgb 11.3 L Hct 33.4 L Lymph % (Auto) [place] # Seg Neutrophils % Seg Neutrophils # D-Dimer Heparin Anti-Xa Level POC ABG pH POC ABG pCO2 POC ABG pO2 Sodium Chloride BUN Creatinine Glucose POC Glucose 205 H 297 H Calcium AST Total Creatine Kinase CK-MB (CK-2) NT-Pro-B Natriuret Pep 10/13/18 10/13/18 10/14/18 15:58 21:46 05:33 WBC 15.0 H RBC 3.56 L Hgb 10.7 L Hct 33.0 L Lymph % (Auto) [place] # Seg Neutrophils % Seg Neutrophils # D-Dimer Heparin Anti-Xa Level POC ABG pH POC ABG pCO2 POC ABG pO2 Sodium Chloride BUN Creatinine Glucose POC Glucose 209 H 282 H Calcium AST Total Creatine Kinase CK-MB (CK-2) NT-Pro-B Natriuret Pep 10/14/18 10/14/18 10/14/18 05:33 08:28 11:40 WBC RBC Hgb Hct Lymph % (Auto) [place] # Seg Neutrophils % Seg Neutrophils # D-Dimer Heparin Anti-Xa Level POC ABG pH POC ABG pCO2 POC ABG pO2 Sodium 131 L Chloride 94.1 L BUN Creatinine 0.7 L Glucose 230 H POC Glucose 275 H 363 H Calcium 8.2 L AST Total Creatine Kinase CK-MB (CK-2) NT-Pro-B Natriuret Pep 10/14/18 10/14/18 10/15/18 16:16 22:45 06:07 WBC 13.0 H RBC 3.63 L Hgb 11.1 L Hct 33.6 L Lymph % (Auto) [place] # Seg Neutrophils % Seg Neutrophils # D-Dimer Heparin Anti-Xa Level POC ABG pH POC ABG pCO2 POC ABG pO2 Sodium Chloride BUN Creatinine Glucose POC Glucose 311 H 264 H Calcium AST Total Creatine Kinase CK-MB (CK-2) NT-Pro-B Natriuret Pep 10/15/18 10/15/18 10/15/18 06:07 07:56 09:35 WBC RBC Hgb Hct Lymph % (Auto) [place] # Seg Neutrophils % Seg Neutrophils # D-Dimer Heparin Anti-Xa Level POC ABG pH POC ABG pCO2 46.3 H POC ABG pO2 Sodium 133 L Chloride 94.6 L BUN Creatinine 0.5 L Glucose 217 H POC Glucose 223 H Calcium AST Total Creatine Kinase CK-MB (CK-2) NT-Pro-B Natriuret Pep 10/15/18 10/15/18 10/15/18 12:50 16:22 21:21 WBC RBC Hgb Hct Lymph % (Auto) [place] # Seg Neutrophils % Seg Neutrophils # D-Dimer Heparin Anti-Xa Level POC ABG pH POC ABG pCO2 POC ABG pO2 Sodium Chloride BUN Creatinine Glucose POC Glucose 197 H 223 H 204 H Calcium AST Total Creatine Kinase CK-MB (CK-2) NT-Pro-B Natriuret Pep 10/16/18 10/16/18 10/16/18 04:51 04:51 08:33 WBC 11.8 H RBC Hgb 11.3 L Hct 34.7 L Lymph % (Auto) [place] # Seg Neutrophils % Seg Neutrophils # D-Dimer Heparin Anti-Xa Level POC ABG pH POC ABG pCO2 POC ABG pO2 Sodium 136 L Chloride 97.0 L BUN 21 H Creatinine 0.7 L Glucose 232 H POC Glucose 266 H Calcium 8.1 L AST Total Creatine Kinase CK-MB (CK-2) NT-Pro-B Natriuret Pep 10/16/18 10/16/18 09:48 11:29 WBC RBC Hgb Hct Lymph % (Auto) [place] # Seg Neutrophils % Seg Neutrophils # D-Dimer Heparin Anti-Xa Level 0.77 H POC ABG pH POC ABG pCO2 POC ABG pO2 Sodium Chloride BUN Creatinine Glucose POC Glucose 329 H Calcium AST Total Creatine Kinase CK-MB (CK-2) NT-Pro-B Natriuret Pep Chest x-ray: image reviewed (No pneumothorax, no pleural effusion) Allied health notes reviewed: RT (Stat ABG at the bedside, results reviewed)
[2018-10-16] MEDS: HEPARIN/ 0.45% NACL-25,000 UNIT/500 ML 25,000 UNIT/500 ML BAG IV SCH (17:08)
[2018-10-16] MEDS: PRAVACHOL PO SCH (21:35)
[2018-10-17] MEDS: SOLU-Medrol IV SCH ×4 (01:25→17:35)
[2018-10-17 05:11] LABS: Hematocrit 36.2 % (35.5-45.6); Hemoglobin 11.7 gm/dl (11.8-15.2); Mean Corpuscular HGB Conc 32 % (32-34); Mean Corpuscular Volume 93 fl (84-94); Platelet Count 271 K/mm3 (140-440); Red Cell Distribution Width 14.4 % (13.2-15.2)
[2018-10-17] MEDS: TESSALON PERLES PO SCH ×3 (05:22→21:39)
[2018-10-17] MEDS: CARDIZEM PO SCH ×3 (05:22→17:35)
[2018-10-17] MEDS: LASIX IV SCH ×2 (05:23→17:35)
[2018-10-17 05:30] LABS: BUN/Creatinine Ratio 30; Blood Urea Nitrogen 18 mg/dL (9-20); Calcium 8.3 mg/dL (8.4-10.2); Hemolysis Index 89
[2018-10-17] MEDS: DUONEB *Not for PRN Use IH SCH ×3 (07:23→20:26)
[2018-10-17] MEDS: PULMICORT IH SCH ×2 (07:23→19:50)
[2018-10-17] MEDS: BROVANA NEBU IH SCH ×2 (07:23→19:50)
[2018-10-17] MEDS: HumuLIN R SUB-Q SCH ×4 (08:37→22:17)
[2018-10-17] MEDS: GLUCOPHAGE PO SCH ×2 (08:38→17:35)
--- NOTE | 2018-10-17 09:37 | Progress Note ---
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 Acute on chronic systolic chf, EF 40-45% Cont Lasix Atrial fibrillation with RVR and hypercoagulable state -Cardiology following rate control per cardiology, on oral dilt, tsh and mg wnl Bilateral pleural effusion R > L s/p thoracentesis Abdominal pain is nonspecific History of GERD, PPI CT abdomen and pelvis, shows no acute findings GI input appreciated Alcohol dependence and withdrawal CIWA protocol, IV fluids, Folate and Thiamine PT consulted-to evaluate Hopefully dc home in 1-2 days Full code History Interval history: Less shortness of breath No chest pain Hospitalist Physical - Physical exam Narrative exam: Gen: Not in acute distress, lying in bed, obese HEENT: Normocephalic, atraumatic Neck: supple, no JVD Heart: S1 and S2 reg, no murmurs, rubs or gallop Lungs: Dull right base, no wheeze Abd: soft, non tender, non distended, normal BS Ext: No edema, no clubbing, no cyanosis, Neuro: Awake,alert,oriented x 3, moves all ext, non focal - Constitutional Vitals: Temp Pulse Resp BP Pulse Ox 98.2 F 86 11 L 138/68 94 10/17/18 08:00 10/17/18 09:00 10/17/18 09:00 10/17/18 09:00 10/17/18 09:00 General appearance: Present: no acute distress, obese Results - Labs CBC & Chem 7: 10/17/18 04:30 10/17/18 04:30 Labs: Laboratory Last Values WBC 16.2 K/mm3 (4.5-11.0) H 10/17/18 04:30 RBC 3.90 M/mm3 (3.65-5.03) 10/17/18 04:30 Hgb 11.7 gm/dl (11.8-15.2) L 10/17/18 04:30 Hct 36.2 % (35.5-45.6) 10/17/18 04:30 MCV 93 fl (84-94) 10/17/18 04:30 MCH 30 pg (28-32) 10/17/18 04:30 MCHC 32 % (32-34) 10/17/18 04:30 RDW 14.4 % (13.2-15.2) 10/17/18 04:30 Plt Count 271 K/mm3 (140-440) 10/17/18 04:30 Lymph % (Auto) 11.5 % (13.4-35.0) L 10/10/18 03:01 [place] % (Auto) 6.9 % (0.0-7.3) 10/10/18 03:01 Eos % (Auto) 0.1 % (0.0-4.3) 10/10/18 03:01 Baso % (Auto) 0.2 % (0.0-1.8) 10/10/18 03:01 Lymph # 1.6 K/mm3 (1.2-5.4) 10/10/18 03:01 [place] # 0.9 K/mm3 (0.0-0.8) H 10/10/18 03:01 Eos # 0.0 K/mm3 (0.0-0.4) 10/10/18 03:01 Baso # 0.0 K/mm3 (0.0-0.1) 10/10/18 03:01 Seg Neutrophils % 81.3 % (40.0-70.0) H 10/10/18 03:01 Seg Neutrophils # 11.0 K/mm3 (1.8-7.7) H 10/10/18 03:01 PT 14.6 Sec. (12.2-14.9) 10/15/18 10:30 INR 1.07 (0.87-1.13) 10/15/18 10:30 APTT 25.6 Sec. (24.2-36.6) 10/15/18 10:30 532.59 ng/mlDDU (0-234) H 10/08/18 21:01 Heparin Anti-Xa Level 0.42 U.I./ml (0.3-0.7) 10/16/18 19:40 POC ABG pH 7.388 (7.35-7.45) 10/15/18 09:35 POC ABG pCO2 46.3 (35-45) H 10/15/18 09:35 POC ABG pO2 90 (80-105) 10/15/18 09:35 POC ABG HCO3 27.9 (22-26 mml/L) 10/15/18 09:35 POC ABG Total CO2 29 (23-27mmol/L) 10/15/18 09:35 POC ABG O2 Sat 97 10/15/18 09:35 POC ABG Base Excess 3 ((-2) - (+3)mmol/L) 10/15/18 09:35 36 % 10/15/18 09:35 Sodium 136 mmol/L (137-145) L 10/17/18 04:30 Potassium 4.2 mmol/L (3.6-5.0) 10/17/18 04:30 Chloride 94.8 mmol/L (98-107) L 10/17/18 04:30 Carbon Dioxide 30 mmol/L (22-30) 10/17/18 04:30 15 mmol/L 10/17/18 04:30 BUN 18 mg/dL (9-20) 10/17/18 04:30 0.6 mg/dL (0.8-1.5) L 10/17/18 04:30 Estimated GFR > 60 ml/min 10/17/18 04:30 30 % 10/17/18 04:30 Glucose 263 mg/dL (75-100) H 10/17/18 04:30 POC Glucose 228 (70-105) H 10/17/18 07:53 Calcium 8.3 mg/dL (8.4-10.2) L 10/17/18 04:30 Magnesium 2.00 mg/dL (1.7-2.3) 10/09/18 10:44 0.50 mg/dL (0.1-1.2) 10/08/18 20:40 AST 45 units/L (5-40) H 10/08/18 20:40 ALT 43 units/L (7-56) 10/08/18 20:40 58 units/L (35-129) 10/08/18 20:40 541 units/L (55-170) H 10/09/18 07:47 CK-MB (CK-2) 10.1 ng/mL (0.0-4.0) H 10/09/18 07:47 CK-MB (CK-2) Rel Index 1.8 (0-4) 10/09/18 07:47 0.010 ng/mL (0.00-0.029) 10/09/18 07:47 NT-Pro-B Natriuret Pep 1527 pg/mL (0-900) H 10/08/18 21:01 7.2 g/dL (6.3-8.2) 10/08/18 20:40 4.2 g/dL (3.9-5) 10/08/18 20:40 1.4 % 10/08/18 20:40 17 units/L (13-60) 10/08/18 20:40 TSH 1.230 mlU/mL (0.270-4.200) 10/09/18 10:44 Straw (Yellow) 10/09/18 00:37 Clear (Clear) 10/09/18 00:37 7.0 (5.0-7.0) 10/09/18 00:37 Ur Specific [place] 1.021 (1.003-1.030) 10/09/18 00:37 <15 mg/dl mg/dL (Negative) 10/09/18 00:37 Neg mg/dL (Negative) 10/09/18 00:37 Neg mg/dL (Negative) 10/09/18 00:37 Neg (Negative) 10/09/18 00:37 Neg (Negative) 10/09/18 00:37 Neg (Negative) 10/09/18 00:37 < 2.0 mg/dL (<2.0) 10/09/18 00:37 Ur Leukocyte Esterase Neg (Negative) 10/09/18 00:37 < 1.0 /HPF (0.0-6.0) 10/09/18 00:37 1.0 /HPF (0.0-6.0) 10/09/18 00:37 Fluid Type Pleural 10/15/18 15:05 Fluid Color Yellow 10/15/18 15:05 Fluid Appearance Hazy 10/15/18 15:05 Fluid WBC 205 /mm3 10/15/18 15:05 Fluid RBC 745 /mm3 10/15/18 15:05 Fluid Diff Comment 10/15/18 15:05 Fluid Seg Neutrophils 46.0 % 10/15/18 15:05 Fluid Lymphocytes 49.0 % 10/15/18 15:05 Fluid Reactive Lymphs 0 % 10/15/18 15:05 Fluid Monocytes 5.0 % 10/15/18 15:05 Fluid Eosinophils 0 % 10/15/18 15:05 Fluid Basophils 0 % 10/15/18 15:05 Active Medications - Current Medications Current Medications: Generic Name Dose Route Start Last Admin Trade Name Freq PRN Reason Stop Dose Admin Acetaminophen 650 mg 10/09/18 01:46 10/15/18 21:31 Tylenol PO 650 mg Q4H PRN Administration Pain MILD(1-3)/Fever >100.5/[place] Albuterol 2.5 mg 10/09/18 12:37 Proventil IH Q6HRT PRN Shortness Of Breath Albuterol/Ipratropium 1 ampul 10/10/18 08:00 10/17/18 07:23 Duoneb *Not For Prn Use* IH Not Given TIDRT DEIDRA Arformoterol Tartrate 15 mcg 10/12/18 14:00 10/17/18 07:23 Brovana Nebu IH 15 mcg Q12HRT DEIDRA Administration Benzonatate 100 mg 10/13/18 17:00 10/17/18 05:22 Tessalon Perles PO 100 mg Q8HR DEIDRA Administration Budesonide 0.5 mg 10/12/18 20:00 10/17/18 07:23 Pulmicort IH 0.5 mg Q12HRT DEIDRA Administration Dextrose 50 ml 10/09/18 04:38 D50w (25gm) Syringe IV PRN PRN Hypoglycemia Diltiazem HCl 60 mg 10/09/18 09:00 10/17/18 05:22 Cardizem PO 60 mg Q6HR DEIDRA Administration Folic Acid 1 mg 10/09/18 11:00 10/16/18 09:51 Folvite PO 1 mg QDAY DEIDRA Administration Furosemide 40 mg 10/12/18 10:00 10/17/18 05:23 Lasix IV 40 mg 0600,1800 DEIDRA Administration Glimepiride 4 mg 10/13/18 10:00 10/16/18 09:51 Amaryl PO 4 mg DAILY DEIDRA Administration Hydralazine HCl 10 mg 10/09/18 15:17 Apresoline IV Q4HR PRN BP >160/100 Heparin Sodium/Sodium Chloride 25,000 unit in 500 mls @ 30 mls/hr 10/09/18 01:00 10/16/18 17:08 Heparin/ 0.45% Nacl-25,000 Unit/500 Ml IV 1,400 units/hr TITR DEIDRA 28 mls/hr Titration Protocol 1,500 UNITS/HR Insulin Human Isoph/Insulin Regular 8 unit 10/14/18 10:00 10/17/18 08:37 Humulin 70/30 SUB-Q 8 unit BIDDIAB DEIDRA Administration Insulin Human Regular 0 units 10/14/18 18:00 10/17/18 08:37 Humulin R SUB-Q 4 units ACHS DEIDRA Administration Protocol Lisinopril 10 mg 10/09/18 13:00 10/16/18 09:53 Zestril PO 10 mg QDAY DEIDRA Administration Lorazepam 1 mg 10/09/18 02:16 10/15/18 07:20 Ativan IV 1 mg Q1HR PRN Administration CIWA-Ar 8-15 Metformin HCl 500 mg 10/13/18 17:00 10/17/18 08:38 Glucophage PO 500 mg BIDDIAB DEIDRA Administration Methylprednisolone Sodium Succinate 60 mg 10/14/18 17:00 10/17/18 08:40 Solu-Medrol IV 60 mg Q8H DEIDRA Administration Metoprolol Succinate 25 mg 10/09/18 13:00 10/16/18 09:52 Toprol Xl PO 25 mg QDAY [facility] Administration Metoprolol Tartrate 5 mg 10/15/18 12:30 10/15/18 19:15 Lopressor IV 5 mg Q4H PRN Administration HR >130 Ondansetron HCl 4 mg 10/09/18 01:46 Zofran IV Q8H PRN Nausea And Vomiting Pantoprazole Sodium 40 mg 10/09/18 11:00 10/16/18 09:52 Protonix PO 40 mg QDAY DEIDRA Administration Pravastatin Sodium 10 mg 10/09/18 22:00 10/16/18 21:35 Pravachol PO 10 mg QHS DEIDRA Administration Sodium Chloride 10 ml 10/09/18 10:00 10/16/18 21:37 Sodium Chloride Flush Syringe 10 Ml IV 10 ml BID DEIDRA Administration Sodium Chloride 10 ml 10/09/18 01:46 10/15/18 04:11 Sodium Chloride Flush Syringe 10 Ml IV 10 ml PRN PRN Administration LINE FLUSH Thiamine HCl 100 mg 10/09/18 11:00 10/16/18 09:53 Vitamin B-1 PO 100 mg QDAY DEIDRA Administration Nutrition/Malnutrition Assess - Dietary Evaluation Nutrition/Malnutrition Findings: Nutrition Notes Start: 10/09/18 14:34 Freq: Status: Active Protocol: Document 10/10/18 15:18 RM (Rec: 10/10/18 15:21 RM [id number]) Nutrition Notes Initial or Follow up Assessment Current Diagnosis COPD,Diabetes,Hypertension, Heart Failure,Hyperlipidemia Other Pertinent Diagnosis Abdominal pain, N/V, Alcohol abuse, GERD Current Diet Cardiac Labs/Tests Reviewed Pertinent Medications Reviewed Height 6 ft Weight 104.1 kg [place] Body Weight (kg) 80.90 BMI 31.1 Subjective/Other Information Pt daughter present at time of visit. Reviewed DM diet education. Gave handout. Burn Absent Trauma Absent #1 Nutrition Diagnosis Food and nutrition-related knowledge deficit Etiology lack of prior education As Evidenced by Signs and Symptoms pt and pt daughter desire for education Nutrition Intervention Teaching Recipient Family Learning Readiness Good Teaching Methods Discussion,Handout Response to Teaching Verbalize understanding Education Handouts Provided Carbohydrate counting for people with diabetes Barriers to Learning No Barriers RD phone number provided Yes Patient aware of follow up options Yes Goal #1 Utilize carbohydrate counting Revisit per MD consult or patient Sign Off request:
--- NOTE | 2018-10-17 09:39 | Progress Note ---
Assessment and Plan Acute respiratory failure with hypoxia PaO2 62 on FIO2 36% on admission Bilateral pulmonary emboli Bilateral pleural effusions with atelectasis COPD exacerbation Acute on chronic systolic CHF EF 40-45% Atrial fibrillation with RVR and hypercoagulable state Alcohol dependence and withdrawal Abdominal pain, resolved Leukocytosis--no clinical evidence of infection -Bronchodilators - Wean supplemental oxygen to keep O2 sats 88-90% -Anticoagulation, therapeutic -Monitor closely for bleeding complications -Follow up pleural fluid analysis results -Start oral anticoagulation -[facility] protocol for alcohol abuse disorder -PT/OT/Mobility -Aspiration precautions -Accucheck with glycemic control -Target glucose 140-180mg/dL -Incentive spirometry with airway clearance techniques -Monitor WCC -Gentle diuresis while monitoring renal function, electrolytes and hemodynamics Discharge planning Falls precautions Home oxygen evaluation prior to discharge Subjective Date of service: 10/17/18 Interval history: Patient is seen today for: Acute hypoxic respiratory failure, Acute bilateral pulmonary embolism, Bilateral pleural effusions, COPD Seen and examined at bedside; 24hour events reviewed; nursing and respiratory care staff consulted; no adverse overnight events reported to me; Vitals, labs, medications, chart and imaging reviewed. Sitting up in a chair having breakfast. No nausea or vomiting, no diarrhea, no fevers or chills. On 6L supplemental oxygen via NC with O2 sats 99% Denies any chest pain or shortness of breath. wants to know when he can go home, apparently lives at home with his daughter Objective Vital Signs - 12hr 10/16/18 10/16/18 10/16/18 22:00 23:00 23:14 Temperature 97.9 F Pulse Rate 78 77 Pulse Rate [ Bilateral Throughout] Pulse Rate [ From Monitor] Respiratory 23 18 Rate Respiratory Rate [Bilateral Throughout] Blood Pressure 132/56 137/68 O2 Sat by Pulse 99 99 Oximetry 10/16/18 10/17/18 10/17/18 23:31 00:00 01:00 Temperature Pulse Rate 83 79 87 Pulse Rate [ Bilateral Throughout] Pulse Rate [ 79 From Monitor] Respiratory 16 17 Rate Respiratory Rate [Bilateral Throughout] Blood Pressure 137/68 138/69 143/75 O2 Sat by Pulse 99 97 Oximetry 10/17/18 10/17/18 10/17/18 02:00 03:00 03:48 Temperature 97.9 F Pulse Rate 87 86 Pulse Rate [ Bilateral Throughout] Pulse Rate [ From Monitor] Respiratory 20 16 Rate Respiratory Rate [Bilateral Throughout] Blood Pressure 130/72 136/68 O2 Sat by Pulse 96 97 Oximetry 10/17/18 10/17/18 10/17/18 04:00 05:00 05:22 Temperature Pulse Rate 80 78 81 Pulse Rate [ Bilateral Throughout] Pulse Rate [ 80 From Monitor] Respiratory 21 16 Rate Respiratory Rate [Bilateral Throughout] Blood Pressure 136/68 130/67 125/70 O2 Sat by Pulse 92 94 Oximetry 10/17/18 10/17/18 10/17/18 06:00 07:00 07:22 Temperature Pulse Rate 86 81 Pulse Rate [ Bilateral Throughout] Pulse Rate [ From Monitor] Respiratory 17 19 Rate Respiratory Rate [Bilateral Throughout] Blood Pressure 125/70 O2 Sat by Pulse 83 L 91 95 Oximetry 10/17/18 10/17/18 10/17/18 07:23 07:38 08:00 Temperature 98.2 F Pulse Rate 78 Pulse Rate [ 80 81 Bilateral Throughout] Pulse Rate [ From Monitor] Respiratory 17 Rate Respiratory 16 20 Rate [Bilateral Throughout] Blood Pressure 138/68 O2 Sat by Pulse 93 Oximetry 10/17/18 09:00 Temperature Pulse Rate 86 Pulse Rate [ Bilateral Throughout] Pulse Rate [ From Monitor] Respiratory 11 L Rate Respiratory Rate [Bilateral Throughout] Blood Pressure 138/68 O2 Sat by Pulse 94 Oximetry Constitutional: no acute distress, alert, lethargic Eyes: non-icteric ENT: oropharynx moist Neck: supple, no lymphadenopathy Effort: mildly labored Ascultation: Bilateral: diminished breath sounds (upper airway referred sounds) Cardiovascular: regular rate and rhythm, other (S1,S2, no murmurs, gallops or rubs) Gastrointestinal: normoactive bowel sounds, soft, non-tender Integumentary: normal Extremities: no cyanosis, no edema Neurologic: normal mental status, non-focal exam, pupils equal and round, motor strength normal and Psychiatric: mood appropriate, affect normal CBC and BMP: 10/17/18 04:30 10/17/18 04:30 ABG, PT/INR, D-dimer: ABG POC ABG pH 7.388 (7.35-7.45) 10/15/18 09:35 POC ABG pCO2 46.3 (35-45) H 10/15/18 09:35 POC ABG pO2 90 (80-105) 10/15/18 09:35 POC ABG HCO3 27.9 (22-26 mml/L) 10/15/18 09:35 POC ABG Total CO2 29 (23-27mmol/L) 10/15/18 09:35 POC ABG O2 Sat 97 10/15/18 09:35 PT/INR, D-dimer PT 14.6 Sec. (12.2-14.9) 10/15/18 10:30 INR 1.07 (0.87-1.13) 10/15/18 10:30 532.59 ng/mlDDU (0-234) H 10/08/18 21:01 Abnormal lab findings: Abnormal Labs 10/08/18 10/08/18 10/08/18 20:40 20:40 21:01 WBC RBC Hgb Hct Lymph % (Auto) [place] # Seg Neutrophils % 74.6 H Seg Neutrophils # 7.9 H D-Dimer 532.59 H Heparin Anti-Xa Level POC ABG pH POC ABG pCO2 POC ABG pO2 Sodium 132 L Chloride 96.5 L BUN Creatinine 0.7 L Glucose 109 H POC Glucose Calcium AST 45 H Total Creatine Kinase CK-MB (CK-2) NT-Pro-B Natriuret Pep 10/08/18 10/09/18 10/09/18 21:01 02:12 05:24 WBC RBC Hgb Hct Lymph % (Auto) [place] # Seg Neutrophils % Seg Neutrophils # D-Dimer Heparin Anti-Xa Level POC ABG pH POC ABG pCO2 POC ABG pO2 Sodium Chloride BUN Creatinine Glucose POC Glucose 125 H Calcium AST Total Creatine Kinase 620 H CK-MB (CK-2) 12.0 H NT-Pro-B Natriuret Pep 1527 H 10/09/18 10/09/18 10/09/18 07:47 08:02 11:59 WBC RBC Hgb Hct Lymph % (Auto) [place] # Seg Neutrophils % Seg Neutrophils # D-Dimer Heparin Anti-Xa Level POC ABG pH POC ABG pCO2 POC ABG pO2 Sodium Chloride BUN Creatinine Glucose POC Glucose 130 H 150 H Calcium AST Total Creatine Kinase 541 H CK-MB (CK-2) 10.1 H NT-Pro-B Natriuret Pep 10/09/18 10/10/18 10/10/18 14:52 03:01 03:01 WBC 13.5 H RBC Hgb Hct Lymph % (Auto) 11.5 L [place] # 0.9 H Seg Neutrophils % 81.3 H Seg Neutrophils # 11.0 H D-Dimer Heparin Anti-Xa Level POC ABG pH 7.341 L POC ABG pCO2 POC ABG pO2 62 L Sodium 133 L Chloride 95.7 L BUN Creatinine 0.7 L Glucose 140 H POC Glucose Calcium AST Total Creatine Kinase CK-MB (CK-2) NT-Pro-B Natriuret Pep 10/10/18 10/11/18 10/12/18 06:46 03:48 23:14 WBC RBC Hgb 10.9 L Hct 32.8 L Lymph % (Auto) [place] # Seg Neutrophils % Seg Neutrophils # D-Dimer Heparin Anti-Xa Level POC ABG pH POC ABG pCO2 POC ABG pO2 Sodium Chloride BUN Creatinine Glucose POC Glucose 139 H 242 H Calcium AST Total Creatine Kinase CK-MB (CK-2) NT-Pro-B Natriuret Pep 10/13/18 10/13/18 10/13/18 05:05 08:20 11:35 WBC RBC Hgb 11.3 L Hct 33.4 L Lymph % (Auto) [place] # Seg Neutrophils % Seg Neutrophils # D-Dimer Heparin Anti-Xa Level POC ABG pH POC ABG pCO2 POC ABG pO2 Sodium Chloride BUN Creatinine Glucose POC Glucose 205 H 297 H Calcium AST Total Creatine Kinase CK-MB (CK-2) NT-Pro-B Natriuret Pep 10/13/18 10/13/18 10/14/18 15:58 21:46 05:33 WBC 15.0 H RBC 3.56 L Hgb 10.7 L Hct 33.0 L Lymph % (Auto) [place] # Seg Neutrophils % Seg Neutrophils # D-Dimer Heparin Anti-Xa Level POC ABG pH POC ABG pCO2 POC ABG pO2 Sodium Chloride BUN Creatinine Glucose POC Glucose 209 H 282 H Calcium AST Total Creatine Kinase CK-MB (CK-2) NT-Pro-B Natriuret Pep 10/14/18 10/14/18 10/14/18 05:33 08:28 11:40 WBC RBC Hgb Hct Lymph % (Auto) [place] # Seg Neutrophils % Seg Neutrophils # D-Dimer Heparin Anti-Xa Level POC ABG pH POC ABG pCO2 POC ABG pO2 Sodium 131 L Chloride 94.1 L BUN Creatinine 0.7 L Glucose 230 H POC Glucose 275 H 363 H Calcium 8.2 L AST Total Creatine Kinase CK-MB (CK-2) NT-Pro-B Natriuret Pep 10/14/18 10/14/18 10/15/18 16:16 22:45 06:07 WBC 13.0 H RBC 3.63 L Hgb 11.1 L Hct 33.6 L Lymph % (Auto) [place] # Seg Neutrophils % Seg Neutrophils # D-Dimer Heparin Anti-Xa Level POC ABG pH POC ABG pCO2 POC ABG pO2 Sodium Chloride BUN Creatinine Glucose POC Glucose 311 H 264 H Calcium AST Total Creatine Kinase CK-MB (CK-2) NT-Pro-B Natriuret Pep 10/15/18 10/15/18 10/15/18 06:07 07:56 09:35 WBC RBC Hgb Hct Lymph % (Auto) [place] # Seg Neutrophils % Seg Neutrophils # D-Dimer Heparin Anti-Xa Level POC ABG pH POC ABG pCO2 46.3 H POC ABG pO2 Sodium 133 L Chloride 94.6 L BUN Creatinine 0.5 L Glucose 217 H POC Glucose 223 H Calcium AST Total Creatine Kinase CK-MB (CK-2) NT-Pro-B Natriuret Pep 10/15/18 10/15/18 10/15/18 12:50 16:22 21:21 WBC RBC Hgb Hct Lymph % (Auto) [place] # Seg Neutrophils % Seg Neutrophils # D-Dimer Heparin Anti-Xa Level POC ABG pH POC ABG pCO2 POC ABG pO2 Sodium Chloride BUN Creatinine Glucose POC Glucose 197 H 223 H 204 H Calcium AST Total Creatine Kinase CK-MB (CK-2) NT-Pro-B Natriuret Pep 10/16/18 10/16/18 10/16/18 04:51 04:51 08:33 WBC 11.8 H RBC Hgb 11.3 L Hct 34.7 L Lymph % (Auto) [place] # Seg Neutrophils % Seg Neutrophils # D-Dimer Heparin Anti-Xa Level POC ABG pH POC ABG pCO2 POC ABG pO2 Sodium 136 L Chloride 97.0 L BUN 21 H Creatinine 0.7 L Glucose 232 H POC Glucose 266 H Calcium 8.1 L AST Total Creatine Kinase CK-MB (CK-2) NT-Pro-B Natriuret Pep 10/16/18 10/16/18 10/16/18 09:48 11:29 16:16 WBC RBC Hgb Hct Lymph % (Auto) [place] # Seg Neutrophils % Seg Neutrophils # D-Dimer Heparin Anti-Xa Level 0.77 H POC ABG pH POC ABG pCO2 POC ABG pO2 Sodium Chloride BUN Creatinine Glucose POC Glucose 329 H 293 H Calcium AST Total Creatine Kinase CK-MB (CK-2) NT-Pro-B Natriuret Pep 10/16/18 10/17/18 10/17/18 22:14 04:30 04:30 WBC 16.2 H RBC Hgb 11.7 L Hct Lymph % (Auto) [place] # Seg Neutrophils % Seg Neutrophils # D-Dimer Heparin Anti-Xa Level POC ABG pH POC ABG pCO2 POC ABG pO2 Sodium 136 L Chloride 94.8 L BUN Creatinine 0.6 L Glucose 263 H POC Glucose 188 H Calcium 8.3 L AST Total Creatine Kinase CK-MB (CK-2) NT-Pro-B Natriuret Pep 10/17/18 07:53 WBC RBC Hgb Hct Lymph % (Auto) [place] # Seg Neutrophils % Seg Neutrophils # D-Dimer Heparin Anti-Xa Level POC ABG pH POC ABG pCO2 POC ABG pO2 Sodium Chloride BUN Creatinine Glucose POC Glucose 228 H Calcium AST Total Creatine Kinase CK-MB (CK-2) NT-Pro-B Natriuret Pep Chest x-ray: image reviewed Allied health notes reviewed: RT (Stat ABG at the bedside, results reviewed)
--- NOTE | 2018-10-17 09:51 | Progress Note ---
Assessment and Plan 1. Bilateral pulmonary emboli 2. Paroxysmal atrial fibrillation 3. Ischemic cardiomyopathy left ventricular ejection fraction 45-50%. Fixed inferior defect on stress MPI 4. Chronic obstructive pulmonary disease 5. Type 2 diabetes mellitus Plan. Continue present management ambulation pulmonary evaluation for continued need for oxygen post discharge. Rhythm currently sinus. Subjective Date of service: 10/17/18 Interval history: No cardiac symptoms Objective Vital Signs Temp Pulse Pulse Pulse Resp Resp BP 10/17/18 09:00 86 11 L 138/68 10/17/18 08:00 98.2 F 78 17 138/68 10/17/18 07:38 81 20 10/17/18 07:23 80 16 10/17/18 07:22 10/17/18 07:00 81 19 10/17/18 06:00 86 17 125/70 10/17/18 05:22 81 125/70 10/17/18 05:00 78 16 130/67 10/17/18 04:00 80 80 21 136/68 10/17/18 03:48 97.9 F 10/17/18 03:00 86 16 136/68 10/17/18 02:00 87 20 130/72 10/17/18 01:00 87 17 143/75 10/17/18 00:00 79 79 16 138/69 10/16/18 23:31 83 137/68 10/16/18 23:14 97.9 F 10/16/18 23:00 77 18 137/68 10/16/18 22:00 78 23 132/56 10/16/18 21:00 79 17 131/57 10/16/18 20:00 98.2 F 78 77 75 21 20 131/57 10/16/18 19:00 78 19 120/48 10/16/18 18:16 95 H 12 123/72 10/16/18 18:00 95 H 14 139/69 10/16/18 17:04 90 139/69 10/16/18 17:00 90 17 133/68 10/16/18 16:00 98 F 89 92 H 17 133/68 10/16/18 15:00 88 15 135/68 10/16/18 14:21 89 135/68 10/16/18 14:00 90 23 135/68 10/16/18 13:40 90 20 10/16/18 13:29 89 20 10/16/18 13:00 95 H 19 135/68 10/16/18 12:00 93 H 90 27 H 135/68 10/16/18 11:45 97.5 F L 10/16/18 11:00 84 16 136/73 10/16/18 10:00 90 17 136/73 10/16/18 09:53 89 139/73 10/16/18 09:52 89 136/73 10/16/18 09:51 89 136/73 Pulse Ox 10/17/18 09:00 94 10/17/18 08:00 93 10/17/18 07:38 10/17/18 07:23 10/17/18 07:22 95 10/17/18 07:00 91 10/17/18 06:00 83 L 10/17/18 05:22 10/17/18 05:00 94 10/17/18 04:00 92 10/17/18 03:48 10/17/18 03:00 97 10/17/18 02:00 96 10/17/18 01:00 97 10/17/18 00:00 99 10/16/18 23:31 10/16/18 23:14 10/16/18 23:00 99 10/16/18 22:00 99 10/16/18 21:00 100 10/16/18 20:00 98 10/16/18 19:00 99 10/16/18 18:16 100 10/16/18 18:00 96 10/16/18 17:04 10/16/18 17:00 98 10/16/18 16:00 99 10/16/18 15:00 100 10/16/18 14:21 10/16/18 14:00 99 10/16/18 13:40 10/16/18 13:29 10/16/18 13:00 91 10/16/18 12:00 98 10/16/18 11:45 10/16/18 11:00 100 10/16/18 10:00 100 10/16/18 09:53 10/16/18 09:52 10/16/18 09:51 - Physical Examination General: No Apparent Distress HEENT: Positive: PERRL Neck: Positive: trachea midline Cardiac: Positive: Regular Rate, S1/S2, PMI, Dilated, Other Lungs: Positive: clear to auscultation, No Wheeze, Rales, Rhonchi Neuro: Positive: Grossly Intact Abdomen: Positive: Soft Skin: Positive: Clear Extremities: Absent: edema - Labs and Meds CBC 10/17/18 Range/Units 04:30 WBC 16.2 H (4.5-11.0) K/mm3 RBC 3.90 (3.65-5.03) M/mm3 Hgb 11.7 L (11.8-15.2) gm/dl Hct 36.2 (35.5-45.6) % Plt Count 271 (140-440) K/mm3 Comprehensive Metabolic Panel 10/17/18 Range/Units 04:30 Sodium 136 L (137-145) mmol/L Potassium 4.2 (3.6-5.0) mmol/L Chloride 94.8 L (98-107) mmol/L Carbon Dioxide 30 (22-30) mmol/L BUN 18 (9-20) mg/dL Creatinine 0.6 L (0.8-1.5) mg/dL Glucose 263 H (75-100) mg/dL Calcium 8.3 L (8.4-10.2) mg/dL - Imaging and Cardiology EKG: image reviewed - Allied health notes Allied health notes reviewed: RT (Stat ABG at the bedside, results reviewed)
[2018-10-17] MEDS: FOLVITE PO SCH (10:12)
[2018-10-17] MEDS: AMARYL PO SCH (10:12)
[2018-10-17] MEDS: VITAMIN B-1 PO SCH (10:12)
[2018-10-17] MEDS: ZESTRIL PO SCH (10:12)
[2018-10-17] MEDS: SODIUM CHLORIDE FLUSH SYRINGE 10 ML IV SCH ×2 (10:12→21:41)
[2018-10-17] MEDS: PROTONIX PO SCH (10:12)
[2018-10-17] MEDS: TOPROL XL PO SCH (10:20)
[2018-10-17] MEDS: HEPARIN/ 0.45% NACL-25,000 UNIT/500 ML 25,000 UNIT/500 ML BAG IV SCH (10:20)
[2018-10-17] MEDS: PRAVACHOL PO SCH (21:40)
[2018-10-18] MEDS: SOLU-Medrol IV SCH ×3 (00:22→17:05)
[2018-10-18] MEDS: CARDIZEM PO SCH ×5 (00:22→23:40)
[2018-10-18 05:36] LABS: Hematocrit 37.7 % (35.5-45.6); Hemoglobin 12.3 gm/dl (11.8-15.2); Mean Corpuscular HGB Conc 33 % (32-34); Mean Corpuscular Volume 92 fl (84-94); Platelet Count 296 K/mm3 (140-440); Red Cell Distribution Width 14.6 % (13.2-15.2)
[2018-10-18 05:56] LABS: BUN/Creatinine Ratio 28; Blood Urea Nitrogen 17 mg/dL (9-20); Calcium 8.4 mg/dL (8.4-10.2); Hemolysis Index 3
[2018-10-18] MEDS: HEPARIN/ 0.45% NACL-25,000 UNIT/500 ML 25,000 UNIT/500 ML BAG IV SCH (06:16)
[2018-10-18] MEDS: TESSALON PERLES PO SCH ×3 (06:17→21:48)
[2018-10-18] MEDS: LASIX IV SCH ×2 (06:18→17:26)
--- NOTE | 2018-10-18 07:02 | Progress Note ---
Assessment and Plan Acute respiratory failure with hypoxia PaO2 62 on FIO2 36% on admission Bilateral pulmonary emboli Bilateral pleural effusions with atelectasis COPD exacerbation Acute on chronic systolic CHF EF 40-45% Atrial fibrillation with RVR and hypercoagulable state Alcohol dependence and withdrawal Abdominal pain, resolved Leukocytosis--no clinical evidence of infection -Bronchodilators - Wean supplemental oxygen to keep O2 sats 88-90% -Anticoagulation, therapeutic -Monitor closely for bleeding complications -Oral anticoagulation -[facility] protocol for alcohol abuse disorder -PT/OT/Mobility -Aspiration precautions -Accucheck with glycemic control -Target glucose 140-180mg/dL -Incentive spirometry with airway clearance techniques -Monitor WCC -Gentle diuresis while monitoring renal function, electrolytes and hemodynamics -Age appropriate cancer screening Discharge planning Falls precautions Home oxygen evaluation prior to discharge Subjective Date of service: 10/18/18 Interval history: Patient is seen today for: Acute hypoxic respiratory failure, Acute bilateral pulmonary embolism, Bilateral pleural effusions s/p right thoracentesis, COPD Seen and examined at bedside; 24hour events reviewed; nursing and respiratory care staff consulted; no adverse overnight events reported to me; Vitals, labs, medications, chart and imaging reviewed. Lying peacefully in bed No nausea or vomiting, no diarrhea, no fevers or chills. On 3L supplemental oxygen via NC with O2 sats 99% Denies any chest pain or shortness of breath. Objective Vital Signs - 12hr 10/17/18 10/17/18 10/17/18 19:54 19:56 20:00 Temperature 98.5 F Pulse Rate 79 Pulse Rate [ 80 Bilateral Throughout] Pulse Rate [ 81 From Monitor] Respiratory 21 Rate Respiratory 22 Rate [Bilateral Throughout] Blood Pressure 132/69 O2 Sat by Pulse 99 99 Oximetry 10/17/18 10/17/18 10/17/18 20:13 21:00 22:00 Temperature Pulse Rate 82 79 Pulse Rate [ 83 Bilateral Throughout] Pulse Rate [ From Monitor] Respiratory 21 11 L Rate Respiratory 21 Rate [Bilateral Throughout] Blood Pressure 143/64 143/64 O2 Sat by Pulse 94 96 Oximetry 10/17/18 10/17/18 10/18/18 22:26 23:00 00:00 Temperature 97.9 F Pulse Rate 81 78 76 Pulse Rate [ Bilateral Throughout] Pulse Rate [ 82 From Monitor] Respiratory 22 16 21 Rate Respiratory Rate [Bilateral Throughout] Blood Pressure 118/47 118/47 119/48 O2 Sat by Pulse 96 97 97 Oximetry 10/18/18 10/18/18 10/18/18 00:22 01:00 02:00 Temperature Pulse Rate 81 77 81 Pulse Rate [ Bilateral Throughout] Pulse Rate [ From Monitor] Respiratory 19 22 Rate Respiratory Rate [Bilateral Throughout] Blood Pressure 131/61 139/61 132/68 O2 Sat by Pulse 95 94 Oximetry 10/18/18 10/18/18 10/18/18 03:00 04:00 05:00 Temperature 98.0 F Pulse Rate 78 76 84 Pulse Rate [ Bilateral Throughout] Pulse Rate [ 82 From Monitor] Respiratory 21 20 16 Rate Respiratory Rate [Bilateral Throughout] Blood Pressure 126/65 122/64 122/64 O2 Sat by Pulse 93 95 95 Oximetry 10/18/18 10/18/18 06:00 06:17 Temperature Pulse Rate 85 81 Pulse Rate [ Bilateral Throughout] Pulse Rate [ From Monitor] Respiratory 23 Rate Respiratory Rate [Bilateral Throughout] Blood Pressure 127/69 127/69 O2 Sat by Pulse 93 Oximetry Constitutional: no acute distress, alert, lethargic Eyes: non-icteric ENT: oropharynx moist Neck: supple, no lymphadenopathy Effort: mildly labored Ascultation: Bilateral: diminished breath sounds (upper airway referred sounds) Cardiovascular: regular rate and rhythm, other (S1,S2, no murmurs, gallops or rubs) Gastrointestinal: normoactive bowel sounds, soft, non-tender Integumentary: normal Extremities: no cyanosis, no edema Neurologic: normal mental status, non-focal exam, pupils equal and round, motor strength normal and Psychiatric: mood appropriate, affect normal CBC and BMP: 10/18/18 05:09 10/18/18 05:09 ABG, PT/INR, D-dimer: ABG POC ABG pH 7.388 (7.35-7.45) 10/15/18 09:35 POC ABG pCO2 46.3 (35-45) H 10/15/18 09:35 POC ABG pO2 90 (80-105) 10/15/18 09:35 POC ABG HCO3 27.9 (22-26 mml/L) 10/15/18 09:35 POC ABG Total CO2 29 (23-27mmol/L) 10/15/18 09:35 POC ABG O2 Sat 97 10/15/18 09:35 PT/INR, D-dimer PT 14.6 Sec. (12.2-14.9) 10/15/18 10:30 INR 1.07 (0.87-1.13) 10/15/18 10:30 532.59 ng/mlDDU (0-234) H 10/08/18 21:01 Abnormal lab findings: Abnormal Labs 10/08/18 10/08/18 10/08/18 20:40 20:40 21:01 WBC RBC Hgb Hct Lymph % (Auto) [place] # Seg Neutrophils % 74.6 H Seg Neutrophils # 7.9 H D-Dimer 532.59 H Heparin Anti-Xa Level POC ABG pH POC ABG pCO2 POC ABG pO2 Sodium 132 L Chloride 96.5 L Carbon Dioxide BUN Creatinine 0.7 L Glucose 109 H POC Glucose Calcium AST 45 H Total Creatine Kinase CK-MB (CK-2) NT-Pro-B Natriuret Pep 10/08/18 10/09/18 10/09/18 21:01 02:12 05:24 WBC RBC Hgb Hct Lymph % (Auto) [place] # Seg Neutrophils % Seg Neutrophils # D-Dimer Heparin Anti-Xa Level POC ABG pH POC ABG pCO2 POC ABG pO2 Sodium Chloride Carbon Dioxide BUN Creatinine Glucose POC Glucose 125 H Calcium AST Total Creatine Kinase 620 H CK-MB (CK-2) 12.0 H NT-Pro-B Natriuret Pep 1527 H 10/09/18 10/09/18 10/09/18 07:47 08:02 11:59 WBC RBC Hgb Hct Lymph % (Auto) [place] # Seg Neutrophils % Seg Neutrophils # D-Dimer Heparin Anti-Xa Level POC ABG pH POC ABG pCO2 POC ABG pO2 Sodium Chloride Carbon Dioxide BUN Creatinine Glucose POC Glucose 130 H 150 H Calcium AST Total Creatine Kinase 541 H CK-MB (CK-2) 10.1 H NT-Pro-B Natriuret Pep 10/09/18 10/10/18 10/10/18 14:52 03:01 03:01 WBC 13.5 H RBC Hgb Hct Lymph % (Auto) 11.5 L [place] # 0.9 H Seg Neutrophils % 81.3 H Seg Neutrophils # 11.0 H D-Dimer Heparin Anti-Xa Level POC ABG pH 7.341 L POC ABG pCO2 POC ABG pO2 62 L Sodium 133 L Chloride 95.7 L Carbon Dioxide BUN Creatinine 0.7 L Glucose 140 H POC Glucose Calcium AST Total Creatine Kinase CK-MB (CK-2) NT-Pro-B Natriuret Pep 10/10/18 10/11/18 10/12/18 06:46 03:48 23:14 WBC RBC Hgb 10.9 L Hct 32.8 L Lymph % (Auto) [place] # Seg Neutrophils % Seg Neutrophils # D-Dimer Heparin Anti-Xa Level POC ABG pH POC ABG pCO2 POC ABG pO2 Sodium Chloride Carbon Dioxide BUN Creatinine Glucose POC Glucose 139 H 242 H Calcium AST Total Creatine Kinase CK-MB (CK-2) NT-Pro-B Natriuret Pep 10/13/18 10/13/18 10/13/18 05:05 08:20 11:35 WBC RBC Hgb 11.3 L Hct 33.4 L Lymph % (Auto) [place] # Seg Neutrophils % Seg Neutrophils # D-Dimer Heparin Anti-Xa Level POC ABG pH POC ABG pCO2 POC ABG pO2 Sodium Chloride Carbon Dioxide BUN Creatinine Glucose POC Glucose 205 H 297 H Calcium AST Total Creatine Kinase CK-MB (CK-2) NT-Pro-B Natriuret Pep 10/13/18 10/13/18 10/14/18 15:58 21:46 05:33 WBC 15.0 H RBC 3.56 L Hgb 10.7 L Hct 33.0 L Lymph % (Auto) [place] # Seg Neutrophils % Seg Neutrophils # D-Dimer Heparin Anti-Xa Level POC ABG pH POC ABG pCO2 POC ABG pO2 Sodium Chloride Carbon Dioxide BUN Creatinine Glucose POC Glucose 209 H 282 H Calcium AST Total Creatine Kinase CK-MB (CK-2) NT-Pro-B Natriuret Pep 10/14/18 10/14/18 10/14/18 05:33 08:28 11:40 WBC RBC Hgb Hct Lymph % (Auto) [place] # Seg Neutrophils % Seg Neutrophils # D-Dimer Heparin Anti-Xa Level POC ABG pH POC ABG pCO2 POC ABG pO2 Sodium 131 L Chloride 94.1 L Carbon Dioxide BUN Creatinine 0.7 L Glucose 230 H POC Glucose 275 H 363 H Calcium 8.2 L AST Total Creatine Kinase CK-MB (CK-2) NT-Pro-B Natriuret Pep 10/14/18 10/14/18 10/15/18 16:16 22:45 06:07 WBC 13.0 H RBC 3.63 L Hgb 11.1 L Hct 33.6 L Lymph % (Auto) [place] # Seg Neutrophils % Seg Neutrophils # D-Dimer Heparin Anti-Xa Level POC ABG pH POC ABG pCO2 POC ABG pO2 Sodium Chloride Carbon Dioxide BUN Creatinine Glucose POC Glucose 311 H 264 H Calcium AST Total Creatine Kinase CK-MB (CK-2) NT-Pro-B Natriuret Pep 10/15/18 10/15/18 10/15/18 06:07 07:56 09:35 WBC RBC Hgb Hct Lymph % (Auto) [place] # Seg Neutrophils % Seg Neutrophils # D-Dimer Heparin Anti-Xa Level POC ABG pH POC ABG pCO2 46.3 H POC ABG pO2 Sodium 133 L Chloride 94.6 L Carbon Dioxide BUN Creatinine 0.5 L Glucose 217 H POC Glucose 223 H Calcium AST Total Creatine Kinase CK-MB (CK-2) NT-Pro-B Natriuret Pep 10/15/18 10/15/18 10/15/18 12:50 16:22 21:21 WBC RBC Hgb Hct Lymph % (Auto) [place] # Seg Neutrophils % Seg Neutrophils # D-Dimer Heparin Anti-Xa Level POC ABG pH POC ABG pCO2 POC ABG pO2 Sodium Chloride Carbon Dioxide BUN Creatinine Glucose POC Glucose 197 H 223 H 204 H Calcium AST Total Creatine Kinase CK-MB (CK-2) NT-Pro-B Natriuret Pep 10/16/18 10/16/18 10/16/18 04:51 04:51 08:33 WBC 11.8 H RBC Hgb 11.3 L Hct 34.7 L Lymph % (Auto) [place] # Seg Neutrophils % Seg Neutrophils # D-Dimer Heparin Anti-Xa Level POC ABG pH POC ABG pCO2 POC ABG pO2 Sodium 136 L Chloride 97.0 L Carbon Dioxide BUN 21 H Creatinine 0.7 L Glucose 232 H POC Glucose 266 H Calcium 8.1 L AST Total Creatine Kinase CK-MB (CK-2) NT-Pro-B Natriuret Pep 10/16/18 10/16/18 10/16/18 09:48 11:29 16:16 WBC RBC Hgb Hct Lymph % (Auto) [place] # Seg Neutrophils % Seg Neutrophils # D-Dimer Heparin Anti-Xa Level 0.77 H POC ABG pH POC ABG pCO2 POC ABG pO2 Sodium Chloride Carbon Dioxide BUN Creatinine Glucose POC Glucose 329 H 293 H Calcium AST Total Creatine Kinase CK-MB (CK-2) NT-Pro-B Natriuret Pep 10/16/18 10/17/18 10/17/18 22:14 04:30 04:30 WBC 16.2 H RBC Hgb 11.7 L Hct Lymph % (Auto) [place] # Seg Neutrophils % Seg Neutrophils # D-Dimer Heparin Anti-Xa Level POC ABG pH POC ABG pCO2 POC ABG pO2 Sodium 136 L Chloride 94.8 L Carbon Dioxide BUN Creatinine 0.6 L Glucose 263 H POC Glucose 188 H Calcium 8.3 L AST Total Creatine Kinase CK-MB (CK-2) NT-Pro-B Natriuret Pep 10/17/18 10/17/18 10/17/18 07:53 11:51 16:37 WBC RBC Hgb Hct Lymph % (Auto) [place] # Seg Neutrophils % Seg Neutrophils # D-Dimer Heparin Anti-Xa Level POC ABG pH POC ABG pCO2 POC ABG pO2 Sodium Chloride Carbon Dioxide BUN Creatinine Glucose POC Glucose 228 H 339 H 276 H Calcium AST Total Creatine Kinase CK-MB (CK-2) NT-Pro-B Natriuret Pep 10/17/18 10/18/18 10/18/18 21:36 05:09 05:09 WBC 19.5 H RBC Hgb Hct Lymph % (Auto) [place] # Seg Neutrophils % Seg Neutrophils # D-Dimer Heparin Anti-Xa Level POC ABG pH POC ABG pCO2 POC ABG pO2 Sodium 135 L Chloride 91.7 L Carbon Dioxide 34 H BUN Creatinine 0.6 L Glucose 212 H POC Glucose 260 H Calcium AST Total Creatine Kinase CK-MB (CK-2) NT-Pro-B Natriuret Pep Allied health notes reviewed: RT (Stat ABG at the bedside, results reviewed)
[2018-10-18] MEDS: GLUCOPHAGE PO SCH ×2 (08:28→17:05)
[2018-10-18] MEDS: HumuLIN R SUB-Q SCH ×5 (08:34→22:00)
[2018-10-18] MEDS: DUONEB *Not for PRN Use IH SCH ×3 (08:44→19:06)
[2018-10-18] MEDS: PULMICORT IH SCH ×2 (08:44→19:06)
[2018-10-18] MEDS: BROVANA NEBU IH SCH ×2 (08:44→19:06)
--- NOTE | 2018-10-18 09:12 | Progress Note ---
Assessment and Plan Assessment and plan: 78-year-old man presented to the hospital of abdominal pain and trouble breathing -Patient has a history of alcoholism drinks 10-12 beers a day PMH; hypertension, diabetes, hyperlipidemia, alcohol abuse, former smoker Acute resp failure with hypoxia Was on high flow oxygen, now on NC Will need home oxygen because desaturated on ambulation Bilateral pulmonary emboli Start Eliquis today. D/C Heparin drip COPD exacerbation steroids, nebs, LABA and inhaled steroid, dw cherry pitter Acute on chronic systolic chf, EF 40-45% Cont Lasix Atrial fibrillation with RVR and hypercoagulable state -Cardiology following rate control per cardiology, on oral dilt, tsh and mg wnl Bilateral pleural effusion R > L s/p thoracentesis Abdominal pain is nonspecific History of GERD, PPI CT abdomen and pelvis, shows no acute findings GI input appreciated Alcohol dependence and withdrawal CIWA protocol, IV fluids, Folate and Thiamine To dc home with home Oxygen after arrangements made History Interval history: Shortness of breath, worse on ambulation Oxygen desaturation on ambulation No chest pain Hospitalist Physical - Physical exam Narrative exam: Gen: Not in acute distress, lying in bed, obese HEENT: Normocephalic, atraumatic Neck: supple, no JVD Heart: S1 and S2 reg, no murmurs, rubs or gallop Lungs: Clear, no wheeze Abd: soft, non tender, non distended, normal BS Ext: No edema, no clubbing, no cyanosis, Neuro: Awake,alert,oriented x 3, moves all ext, non focal - Constitutional Vitals: Temp Pulse Resp BP Pulse Ox 97.7 F 87 20 130/67 92 10/18/18 08:00 10/18/18 08:55 10/18/18 08:55 10/18/18 08:00 10/18/18 08:44 General appearance: Present: no acute distress, obese Results - Labs CBC & Chem 7: 10/18/18 05:09 10/18/18 05:09 Labs: Laboratory Last Values WBC 19.5 K/mm3 (4.5-11.0) H 10/18/18 05:09 RBC 4.10 M/mm3 (3.65-5.03) 10/18/18 05:09 Hgb 12.3 gm/dl (11.8-15.2) 10/18/18 05:09 Hct 37.7 % (35.5-45.6) 10/18/18 05:09 MCV 92 fl (84-94) 10/18/18 05:09 MCH 30 pg (28-32) 10/18/18 05:09 MCHC 33 % (32-34) 10/18/18 05:09 RDW 14.6 % (13.2-15.2) 10/18/18 05:09 Plt Count 296 K/mm3 (140-440) 10/18/18 05:09 Lymph % (Auto) 11.5 % (13.4-35.0) L 10/10/18 03:01 [place] % (Auto) 6.9 % (0.0-7.3) 10/10/18 03:01 Eos % (Auto) 0.1 % (0.0-4.3) 10/10/18 03:01 Baso % (Auto) 0.2 % (0.0-1.8) 10/10/18 03:01 Lymph # 1.6 K/mm3 (1.2-5.4) 10/10/18 03:01 [place] # 0.9 K/mm3 (0.0-0.8) H 10/10/18 03:01 Eos # 0.0 K/mm3 (0.0-0.4) 10/10/18 03:01 Baso # 0.0 K/mm3 (0.0-0.1) 10/10/18 03:01 Seg Neutrophils % 81.3 % (40.0-70.0) H 10/10/18 03:01 Seg Neutrophils # 11.0 K/mm3 (1.8-7.7) H 10/10/18 03:01 PT 14.6 Sec. (12.2-14.9) 10/15/18 10:30 INR 1.07 (0.87-1.13) 10/15/18 10:30 APTT 25.6 Sec. (24.2-36.6) 10/15/18 10:30 532.59 ng/mlDDU (0-234) H 10/08/18 21:01 Heparin Anti-Xa Level 0.56 U.I./ml (0.3-0.7) 10/17/18 19:11 POC ABG pH 7.388 (7.35-7.45) 10/15/18 09:35 POC ABG pCO2 46.3 (35-45) H 10/15/18 09:35 POC ABG pO2 90 (80-105) 10/15/18 09:35 POC ABG HCO3 27.9 (22-26 mml/L) 10/15/18 09:35 POC ABG Total CO2 29 (23-27mmol/L) 10/15/18 09:35 POC ABG O2 Sat 97 10/15/18 09:35 POC ABG Base Excess 3 ((-2) - (+3)mmol/L) 10/15/18 09:35 36 % 10/15/18 09:35 Sodium 135 mmol/L (137-145) L 10/18/18 05:09 Potassium 3.9 mmol/L (3.6-5.0) 10/18/18 05:09 Chloride 91.7 mmol/L (98-107) L 10/18/18 05:09 Carbon Dioxide 34 mmol/L (22-30) H 10/18/18 05:09 13 mmol/L 10/18/18 05:09 BUN 17 mg/dL (9-20) 10/18/18 05:09 0.6 mg/dL (0.8-1.5) L 10/18/18 05:09 Estimated GFR > 60 ml/min 10/18/18 05:09 28 % 10/18/18 05:09 Glucose 212 mg/dL (75-100) H 10/18/18 05:09 POC Glucose 211 (70-105) H 10/18/18 07:28 Calcium 8.4 mg/dL (8.4-10.2) 10/18/18 05:09 Magnesium 2.00 mg/dL (1.7-2.3) 10/09/18 10:44 0.50 mg/dL (0.1-1.2) 10/08/18 20:40 AST 45 units/L (5-40) H 10/08/18 20:40 ALT 43 units/L (7-56) 10/08/18 20:40 58 units/L (35-129) 10/08/18 20:40 541 units/L (55-170) H 10/09/18 07:47 CK-MB (CK-2) 10.1 ng/mL (0.0-4.0) H 10/09/18 07:47 CK-MB (CK-2) Rel Index 1.8 (0-4) 10/09/18 07:47 0.010 ng/mL (0.00-0.029) 10/09/18 07:47 NT-Pro-B Natriuret Pep 1527 pg/mL (0-900) H 10/08/18 21:01 7.2 g/dL (6.3-8.2) 10/08/18 20:40 4.2 g/dL (3.9-5) 10/08/18 20:40 1.4 % 10/08/18 20:40 17 units/L (13-60) 10/08/18 20:40 TSH 1.230 mlU/mL (0.270-4.200) 10/09/18 10:44 Straw (Yellow) 10/09/18 00:37 Clear (Clear) 10/09/18 00:37 7.0 (5.0-7.0) 10/09/18 00:37 Ur Specific [place] 1.021 (1.003-1.030) 10/09/18 00:37 <15 mg/dl mg/dL (Negative) 10/09/18 00:37 Neg mg/dL (Negative) 10/09/18 00:37 Neg mg/dL (Negative) 10/09/18 00:37 Neg (Negative) 10/09/18 00:37 Neg (Negative) 10/09/18 00:37 Neg (Negative) 10/09/18 00:37 < 2.0 mg/dL (<2.0) 10/09/18 00:37 Ur Leukocyte Esterase Neg (Negative) 10/09/18 00:37 < 1.0 /HPF (0.0-6.0) 10/09/18 00:37 1.0 /HPF (0.0-6.0) 10/09/18 00:37 Fluid Type Pleural 10/15/18 15:05 Fluid Color Yellow 10/15/18 15:05 Fluid Appearance Hazy 10/15/18 15:05 Fluid WBC 205 /mm3 10/15/18 15:05 Fluid RBC 745 /mm3 10/15/18 15:05 Fluid Diff Comment 10/15/18 15:05 Fluid Seg Neutrophils 46.0 % 10/15/18 15:05 Fluid Lymphocytes 49.0 % 10/15/18 15:05 Fluid Reactive Lymphs 0 % 10/15/18 15:05 Fluid Monocytes 5.0 % 10/15/18 15:05 Fluid Eosinophils 0 % 10/15/18 15:05 Fluid Basophils 0 % 10/15/18 15:05 Active Medications - Current Medications Current Medications: Generic Name Dose Route Start Last Admin Trade Name Freq PRN Reason Stop Dose Admin Acetaminophen 650 mg 10/09/18 01:46 10/15/18 21:31 Tylenol PO 650 mg Q4H PRN Administration Pain MILD(1-3)/Fever >100.5/[place]CK[place] Albuterol 2.5 mg 10/09/18 12:37 Proventil IH Q6HRT PRN Shortness Of Breath Albuterol/Ipratropium 1 ampul 10/10/18 08:00 10/18/18 08:44 Duoneb *Not For Prn Use* IH Not Given TIDRT DEIDRA Arformoterol Tartrate 15 mcg 10/12/18 14:00 10/18/18 08:44 Brovana Nebu IH 15 mcg Q12HRT DEIDRA Administration Benzonatate 100 mg 10/13/18 17:00 10/18/18 06:17 Tessalon Perles PO 100 mg Q8HR DEIDRA Administration Budesonide 0.5 mg 10/12/18 20:00 10/18/18 08:44 Pulmicort IH 0.5 mg Q12HRT DEIDRA Administration Dextrose 50 ml 10/09/18 04:38 D50w (25gm) Syringe IV PRN PRN Hypoglycemia Diltiazem HCl 60 mg 10/09/18 09:00 10/18/18 06:17 Cardizem PO 60 mg Q6HR DEIDRA Administration Folic Acid 1 mg 10/09/18 11:00 10/17/18 10:12 Folvite PO 1 mg QDAY DEIDRA Administration Furosemide 40 mg 10/12/18 10:00 10/18/18 06:18 Lasix IV 40 mg 0600,1800 DEIDRA Administration Glimepiride 4 mg 10/13/18 10:00 10/17/18 10:12 Amaryl PO 4 mg DAILY DEIDRA Administration Hydralazine HCl 10 mg 10/09/18 15:17 Apresoline IV Q4HR PRN BP >160/100 Heparin Sodium/Sodium Chloride 25,000 unit in 500 mls @ 30 mls/hr 10/09/18 01:00 10/18/18 06:16 Heparin/ 0.45% Nacl-25,000 Unit/500 Ml IV 1,400 units/hr TITR DEIDRA 28 mls/hr Administration Protocol 1,500 UNITS/HR Insulin Human Isoph/Insulin Regular 8 unit 10/14/18 10:00 10/18/18 08:29 Humulin 70/30 SUB-Q 8 unit BIDDIAB DEIDRA Administration Insulin Human Regular 0 units 10/14/18 18:00 10/18/18 08:58 Humulin R SUB-Q 3 units ACHS DEIDRA Administration Protocol Lisinopril 10 mg 10/09/18 13:00 10/17/18 10:12 Zestril PO 10 mg QDAY DEIDRA Administration Lorazepam 1 mg 10/09/18 02:16 10/15/18 07:20 Ativan IV 1 mg Q1HR PRN Administration CIWA-Ar 8-15 Metformin HCl 500 mg 10/13/18 17:00 10/18/18 08:28 Glucophage PO 500 mg BIDDIAB DEIDRA Administration Methylprednisolone Sodium Succinate 60 mg 10/14/18 17:00 10/18/18 00:22 Solu-Medrol IV 60 mg Q8H DEIDRA Administration Metoprolol Succinate 25 mg 10/09/18 13:00 10/17/18 10:20 Toprol Xl PO 25 mg QDAY DEIDRA Administration Metoprolol Tartrate 5 mg 10/15/18 12:30 10/15/18 19:15 Lopressor IV 5 mg Q4H PRN Administration HR >130 Ondansetron HCl 4 mg 10/09/18 01:46 Zofran IV Q8H PRN Nausea And Vomiting Pantoprazole Sodium 40 mg 10/09/18 11:00 10/17/18 10:12 Protonix PO 40 mg QDAY DEIDRA Administration Pravastatin Sodium 10 mg 10/09/18 22:00 10/17/18 21:40 Pravachol PO 10 mg QHS DEIDRA Administration Sodium Chloride 10 ml 10/09/18 10:00 10/17/18 21:41 Sodium Chloride Flush Syringe 10 Ml IV 10 ml BID DEIDRA Administration Sodium Chloride 10 ml 10/09/18 01:46 10/15/18 04:11 Sodium Chloride Flush Syringe 10 Ml IV 10 ml PRN PRN Administration LINE FLUSH Thiamine HCl 100 mg 10/09/18 11:00 10/17/18 10:12 Vitamin B-1 PO 100 mg QDAY DEIDRA Administration Nutrition/Malnutrition Assess - Dietary Evaluation Nutrition/Malnutrition Findings: Nutrition Notes Start: 10/09/18 14:34 Freq: Status: Active Protocol: Document 10/10/18 15:18 RM (Rec: 10/10/18 15:21 RM [id number]) Nutrition Notes Initial or Follow up Assessment Current Diagnosis COPD,Diabetes,Hypertension, Heart Failure,Hyperlipidemia Other Pertinent Diagnosis Abdominal pain, N/V, Alcohol abuse, GERD Current Diet Cardiac Labs/Tests Reviewed Pertinent Medications Reviewed Height 6 ft Weight 104.1 kg [place] Body Weight (kg) 80.90 BMI 31.1 Subjective/Other Information Pt daughter present at time of visit. Reviewed DM diet education. Gave handout. Burn Absent Trauma Absent #1 Nutrition Diagnosis Food and nutrition-related knowledge deficit Etiology lack of prior education As Evidenced by Signs and Symptoms pt and pt daughter desire for education Nutrition Intervention Teaching Recipient Family Learning Readiness Good Teaching Methods Discussion,Handout Response to Teaching Verbalize understanding Education Handouts Provided Carbohydrate counting for people with diabetes Barriers to Learning No Barriers RD phone number provided Yes Patient aware of follow up options Yes Goal #1 Utilize carbohydrate counting Revisit per MD consult or patient Sign Off request:
--- NOTE | 2018-10-18 09:34 | Progress Note ---
Assessment and Plan 1. Bilateral pulmonary emboli 2. Paroxysmal atrial fibrillation 3. Ischemic cardiomyopathy left ventricular ejection fraction 45-50%. Fixed inferior defect on stress MPI 4. Chronic obstructive pulmonary disease 5. Type 2 diabetes mellitus Plan. Cardiac jacobs stable continue present management Subjective Date of service: 10/18/18 Interval history: No cardiac symptoms Objective Vital Signs Temp Pulse Pulse Pulse Resp Resp BP 10/18/18 08:55 87 20 10/18/18 08:44 84 20 10/18/18 08:00 97.7 F 80 83 20 130/67 10/18/18 07:00 80 16 127/69 10/18/18 06:17 81 127/69 10/18/18 06:00 85 23 127/69 10/18/18 05:00 84 16 122/64 10/18/18 04:00 98.0 F 76 82 20 122/64 10/18/18 03:00 78 21 126/65 10/18/18 02:00 81 22 132/68 10/18/18 01:00 77 19 139/61 10/18/18 00:22 81 131/61 10/18/18 00:00 97.9 F 76 82 21 119/48 10/17/18 23:00 78 16 118/47 10/17/18 22:26 81 22 118/47 10/17/18 22:00 79 11 L 143/64 10/17/18 21:00 82 21 143/64 10/17/18 20:13 83 21 10/17/18 20:00 98.5 F 79 81 21 132/69 10/17/18 19:56 80 22 10/17/18 19:54 10/17/18 19:00 84 22 142/62 10/17/18 18:00 80 19 142/62 10/17/18 17:35 85 131/62 10/17/18 17:00 81 20 131/62 10/17/18 16:00 98 F 78 79 20 131/57 10/17/18 15:00 79 17 123/48 10/17/18 14:00 79 19 123/48 10/17/18 13:41 82 16 10/17/18 13:29 80 16 10/17/18 13:00 88 22 130/66 10/17/18 12:23 89 132/56 10/17/18 12:04 87 17 130/66 10/17/18 12:00 97.9 F 88 20 10/17/18 11:00 83 21 124/60 10/17/18 10:20 88 136/61 10/17/18 10:12 84 136/61 10/17/18 10:00 84 16 136/61 Pulse Ox 10/18/18 08:55 10/18/18 08:44 92 10/18/18 08:00 95 10/18/18 07:00 96 10/18/18 06:17 10/18/18 06:00 93 10/18/18 05:00 95 10/18/18 04:00 95 10/18/18 03:00 93 10/18/18 02:00 94 10/18/18 01:00 95 10/18/18 00:22 10/18/18 00:00 97 10/17/18 23:00 97 10/17/18 22:26 96 10/17/18 22:00 96 10/17/18 21:00 94 10/17/18 20:13 10/17/18 20:00 99 10/17/18 19:56 10/17/18 19:54 99 10/17/18 19:00 97 10/17/18 18:00 97 10/17/18 17:35 10/17/18 17:00 95 10/17/18 16:00 92 10/17/18 15:00 96 10/17/18 14:00 97 10/17/18 13:41 10/17/18 13:29 10/17/18 13:00 96 10/17/18 12:23 10/17/18 12:04 82 L 10/17/18 12:00 97 10/17/18 11:00 98 10/17/18 10:20 10/17/18 10:12 10/17/18 10:00 97 - Physical Examination General: No Apparent Distress HEENT: Positive: PERRL Neck: Positive: trachea midline Cardiac: Positive: Reg Rate and Rhythm, S1/S2, S3, PMI, Dilated, Laterally Displaced Lungs: Positive: clear to auscultation, No Wheeze, Rales, Rhonchi Neuro: Positive: Grossly Intact Abdomen: Positive: Soft Skin: Positive: Clear Extremities: Absent: edema - Labs and Meds CBC 10/18/18 Range/Units 05:09 WBC 19.5 H (4.5-11.0) K/mm3 RBC 4.10 (3.65-5.03) M/mm3 Hgb 12.3 (11.8-15.2) gm/dl Hct 37.7 (35.5-45.6) % Plt Count 296 (140-440) K/mm3 Comprehensive Metabolic Panel 10/18/18 Range/Units 05:09 Sodium 135 L (137-145) mmol/L Potassium 3.9 (3.6-5.0) mmol/L Chloride 91.7 L (98-107) mmol/L Carbon Dioxide 34 H (22-30) mmol/L BUN 17 (9-20) mg/dL Creatinine 0.6 L (0.8-1.5) mg/dL Glucose 212 H (75-100) mg/dL Calcium 8.4 (8.4-10.2) mg/dL - Imaging and Cardiology EKG: image reviewed - Allied health notes Allied health notes reviewed: RT (Stat ABG at the bedside, results reviewed)
[2018-10-18] MEDS: ZESTRIL PO SCH (10:34)
[2018-10-18] MEDS: FOLVITE PO SCH (10:34)
[2018-10-18] MEDS: TOPROL XL PO SCH (10:35)
[2018-10-18] MEDS: AMARYL PO SCH (10:35)
[2018-10-18] MEDS: PROTONIX PO SCH (10:35)
[2018-10-18] MEDS: VITAMIN B-1 PO SCH (10:35)
[2018-10-18] MEDS: SODIUM CHLORIDE FLUSH SYRINGE 10 ML IV SCH ×2 (10:36→21:48)
[2018-10-18] MEDS: ELIQUIS PO SCH ×2 (12:08→21:42)
[2018-10-18] MEDS: PRAVACHOL PO SCH (21:43)
[2018-10-19] MEDS: SOLU-Medrol IV SCH ×3 (01:12→17:13)
[2018-10-19] MEDS: LASIX IV SCH ×2 (05:45→17:14)
[2018-10-19] MEDS: CARDIZEM PO SCH ×3 (05:45→17:13)
[2018-10-19] MEDS: TESSALON PERLES PO SCH ×3 (05:46→21:39)
[2018-10-19] MEDS: DUONEB *Not for PRN Use IH SCH ×3 (07:07→19:59)
[2018-10-19] MEDS: PULMICORT IH SCH ×2 (07:07→19:58)
[2018-10-19] MEDS: BROVANA NEBU IH SCH ×2 (07:07→19:58)
[2018-10-19] MEDS: HumuLIN R SUB-Q SCH ×4 (08:24→23:48)
[2018-10-19] MEDS: GLUCOPHAGE PO SCH ×2 (08:24→17:12)
--- NOTE | 2018-10-19 09:12 | Progress Note ---
Assessment and Plan Assessment and plan: Patient is 78-year-old man with history of COPD, CHF, hypertension, hyperlipidemia, GERD, diabetes presented to emergency room with complaints of nausea, abdominal pain and shortness of breath. Patient has history of alcoholism drinks 10-12 beers a day. He was diagnosed with acute resp failure put on high flow Oxygen by [place] [facility] Angio revealed bilateral pulmonary embolism so was put on heparin drip. He also had bilateral pleural effusions R>L and had right thoracentesis. His breathing improved, Oxygen weaned off. His O2 sat normal on room air at rest but desaturates on ambulation. Case management c onsulted to arrange home Oxygen. He is stable to go home on home Oxygen. Acute respiratory failure with hypoxia Was on high flow oxygen, now on Room air. 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 To dc home with home Oxygen after arrangements made History Interval history: Shortness of breath, worse on ambulation Oxygen desaturation on ambulation No chest pain Hospitalist Physical - Physical exam Narrative exam: Gen: Not in acute distress, lying in bed, obese HEENT: Normocephalic, atraumatic Neck: supple, no JVD Heart: S1 and S2 reg, no murmurs, rubs or gallop Lungs: Clear, no wheeze Abd: soft, non tender, non distended, normal BS Ext: No edema, no clubbing, no cyanosis, Neuro: Awake,alert,oriented x 3, moves all ext, non focal - Constitutional Vitals: Temp Pulse Resp BP Pulse Ox 98 F 79 20 134/65 97 10/19/18 03:46 10/19/18 07:19 10/19/18 07:19 10/19/18 06:00 10/19/18 07:06 General appearance: Present: no acute distress, obese Results - Labs CBC & Chem 7: 10/18/18 05:09 10/18/18 05:09 Labs: Laboratory Last Values WBC 19.5 K/mm3 (4.5-11.0) H 10/18/18 05:09 RBC 4.10 M/mm3 (3.65-5.03) 10/18/18 05:09 Hgb 12.3 gm/dl (11.8-15.2) 10/18/18 05:09 Hct 37.7 % (35.5-45.6) 10/18/18 05:09 MCV 92 fl (84-94) 10/18/18 05:09 MCH 30 pg (28-32) 10/18/18 05:09 MCHC 33 % (32-34) 10/18/18 05:09 RDW 14.6 % (13.2-15.2) 10/18/18 05:09 Plt Count 296 K/mm3 (140-440) 10/18/18 05:09 Lymph % (Auto) 11.5 % (13.4-35.0) L 10/10/18 03:01 [place] % (Auto) 6.9 % (0.0-7.3) 10/10/18 03:01 Eos % (Auto) 0.1 % (0.0-4.3) 10/10/18 03:01 Baso % (Auto) 0.2 % (0.0-1.8) 10/10/18 03:01 Lymph # 1.6 K/mm3 (1.2-5.4) 10/10/18 03:01 Sharkey # 0.9 K/mm3 (0.0-0.8) H 10/10/18 03:01 Eos # 0.0 K/mm3 (0.0-0.4) 10/10/18 03:01 Baso # 0.0 K/mm3 (0.0-0.1) 10/10/18 03:01 Seg Neutrophils % 81.3 % (40.0-70.0) H 10/10/18 03:01 Seg Neutrophils # 11.0 K/mm3 (1.8-7.7) H 10/10/18 03:01 PT 14.6 Sec. (12.2-14.9) 10/15/18 10:30 INR 1.07 (0.87-1.13) 10/15/18 10:30 APTT 25.6 Sec. (24.2-36.6) 10/15/18 10:30 532.59 ng/mlDDU (0-234) H 10/08/18 21:01 Heparin Anti-Xa Level 1.67 U.I./ml (0.3-0.7) H 10/18/18 19:01 POC ABG pH 7.388 (7.35-7.45) 10/15/18 09:35 POC ABG pCO2 46.3 (35-45) H 10/15/18 09:35 POC ABG pO2 90 (80-105) 10/15/18 09:35 POC ABG HCO3 27.9 (22-26 mml/L) 10/15/18 09:35 POC ABG Total CO2 29 (23-27mmol/L) 10/15/18 09:35 POC ABG O2 Sat 97 10/15/18 09:35 POC ABG Base Excess 3 ((-2) - (+3)mmol/L) 10/15/18 09:35 36 % 10/15/18 09:35 Sodium 135 mmol/L (137-145) L 10/18/18 05:09 Potassium 3.9 mmol/L (3.6-5.0) 10/18/18 05:09 Chloride 91.7 mmol/L (98-107) L 10/18/18 05:09 Carbon Dioxide 34 mmol/L (22-30) H 10/18/18 05:09 13 mmol/L 10/18/18 05:09 BUN 17 mg/dL (9-20) 10/18/18 05:09 0.6 mg/dL (0.8-1.5) L 10/18/18 05:09 Estimated GFR > 60 ml/min 10/18/18 05:09 28 % 10/18/18 05:09 Glucose 212 mg/dL (75-100) H 10/18/18 05:09 POC Glucose 223 (70-105) H 10/19/18 08:11 Calcium 8.4 mg/dL (8.4-10.2) 10/18/18 05:09 Magnesium 2.00 mg/dL (1.7-2.3) 10/09/18 10:44 0.50 mg/dL (0.1-1.2) 10/08/18 20:40 AST 45 units/L (5-40) H 10/08/18 20:40 ALT 43 units/L (7-56) 10/08/18 20:40 58 units/L (35-129) 10/08/18 20:40 541 units/L (55-170) H 10/09/18 07:47 CK-MB (CK-2) 10.1 ng/mL (0.0-4.0) H 10/09/18 07:47 CK-MB (CK-2) Rel Index 1.8 (0-4) 10/09/18 07:47 0.010 ng/mL (0.00-0.029) 10/09/18 07:47 NT-Pro-B Natriuret Pep 1527 pg/mL (0-900) H 10/08/18 21:01 7.2 g/dL (6.3-8.2) 10/08/18 20:40 4.2 g/dL (3.9-5) 10/08/18 20:40 1.4 % 10/08/18 20:40 17 units/L (13-60) 10/08/18 20:40 TSH 1.230 mlU/mL (0.270-4.200) 10/09/18 10:44 Straw (Yellow) 10/09/18 00:37 Clear (Clear) 10/09/18 00:37 7.0 (5.0-7.0) 10/09/18 00:37 Ur Specific [place] 1.021 (1.003-1.030) 10/09/18 00:37 <15 mg/dl mg/dL (Negative) 10/09/18 00:37 Neg mg/dL (Negative) 10/09/18 00:37 Neg mg/dL (Negative) 10/09/18 00:37 Neg (Negative) 10/09/18 00:37 Neg (Negative) 10/09/18 00:37 Neg (Negative) 10/09/18 00:37 < 2.0 mg/dL (<2.0) 10/09/18 00:37 Ur Leukocyte Esterase Neg (Negative) 10/09/18 00:37 < 1.0 /HPF (0.0-6.0) 10/09/18 00:37 1.0 /HPF (0.0-6.0) 10/09/18 00:37 Fluid Type Pleural 10/15/18 15:05 Fluid Color Yellow 10/15/18 15:05 Fluid Appearance Hazy 10/15/18 15:05 Fluid WBC 205 /mm3 10/15/18 15:05 Fluid RBC 745 /mm3 10/15/18 15:05 Fluid Diff Comment 10/15/18 15:05 Fluid Seg Neutrophils 46.0 % 10/15/18 15:05 Fluid Lymphocytes 49.0 % 10/15/18 15:05 Fluid Reactive Lymphs 0 % 10/15/18 15:05 Fluid Monocytes 5.0 % 10/15/18 15:05 Fluid Eosinophils 0 % 10/15/18 15:05 Fluid Basophils 0 % 10/15/18 15:05 Active Medications - Current Medications Current Medications: Generic Name Dose Route Start Last Admin Trade Name Freq PRN Reason Stop Dose Admin Acetaminophen 650 mg 10/09/18 01:46 10/15/18 21:31 Tylenol PO 650 mg Q4H PRN Administration Pain MILD(1-3)/Fever >100.5/DUCKWORTH Albuterol 2.5 mg 10/09/18 12:37 Proventil IH Q6HRT PRN Shortness Of Breath Albuterol/Ipratropium 1 ampul 10/10/18 08:00 10/19/18 07:07 Duoneb *Not For Prn Use* IH Not Given TIDRT DEIDRA Apixaban 10 mg 10/18/18 12:00 10/18/18 21:42 Eliquis PO 10/24/18 22:01 10 mg Q12HR DEIDRA Administration Protocol Apixaban 5 mg 10/25/18 10:00 Eliquis PO Q12HR DEIDRA Arformoterol Tartrate 15 mcg 10/12/18 14:00 10/19/18 07:07 Brovana Nebu IH 15 mcg Q12HRT DEIDRA Administration Benzonatate 100 mg 10/13/18 17:00 10/19/18 05:46 Tessalon Perles PO 100 mg Q8HR DEIDRA Administration Budesonide 0.5 mg 10/12/18 20:00 10/19/18 07:07 Pulmicort IH 0.5 mg Q12HRT DEIDRA Administration Dextrose 50 ml 10/09/18 04:38 D50w (25gm) Syringe IV PRN PRN Hypoglycemia Diltiazem HCl 60 mg 10/09/18 09:00 10/19/18 05:45 Cardizem PO 60 mg Q6HR DEIDRA Administration Folic Acid 1 mg 10/09/18 11:00 10/18/18 10:34 Folvite PO 1 mg QDAY DEIDRA Administration Furosemide 40 mg 10/12/18 10:00 10/19/18 05:45 Lasix IV 40 mg 0600,1800 DEIDRA Administration Glimepiride 4 mg 10/13/18 10:00 10/18/18 10:35 Amaryl PO 4 mg DAILY DEIDRA Administration Hydralazine HCl 10 mg 10/09/18 15:17 Apresoline IV Q4HR PRN BP >160/100 Insulin Human Isoph/Insulin Regular 8 unit 10/14/18 10:00 10/19/18 08:24 Humulin 70/30 SUB-Q 8 unit BIDDIAB DEIDRA Administration Insulin Human Regular 0 units 10/14/18 18:00 10/19/18 08:24 Humulin R SUB-Q 4 units ACHS EDIDRA Administration Protocol Lisinopril 10 mg 10/09/18 13:00 10/18/18 10:34 Zestril PO 10 mg QDAY DEIDRA Administration Lorazepam 1 mg 10/09/18 02:16 10/15/18 07:20 Ativan IV 1 mg Q1HR PRN Administration CIWA-Ar 8-15 Metformin HCl 500 mg 10/13/18 17:00 10/19/18 08:24 Glucophage PO 500 mg BIDDIAB DEIDRA Administration Methylprednisolone Sodium Succinate 60 mg 10/14/18 17:00 10/19/18 01:12 Solu-Medrol IV 60 mg Q8H DEIDRA Administration Metoprolol Succinate 25 mg 10/09/18 13:00 10/18/18 10:35 Toprol Xl PO 25 mg QDAY DEIDRA Administration Metoprolol Tartrate 5 mg 10/15/18 12:30 10/15/18 19:15 Lopressor IV 5 mg Q4H PRN Administration HR >130 Ondansetron HCl 4 mg 10/09/18 01:46 Zofran IV Q8H PRN Nausea And Vomiting Pantoprazole Sodium 40 mg 10/09/18 11:00 10/18/18 10:35 Protonix PO 40 mg QDAY DEIDRA Administration Pravastatin Sodium 10 mg 10/09/18 22:00 10/18/18 21:43 Pravachol PO 10 mg QHS DEIDRA Administration Sodium Chloride 10 ml 10/09/18 10:00 10/18/18 21:48 Sodium Chloride Flush Syringe 10 Ml IV 10 ml BID DEIDRA Administration Sodium Chloride 10 ml 10/09/18 01:46 10/15/18 04:11 Sodium Chloride Flush Syringe 10 Ml IV 10 ml PRN PRN Administration LINE FLUSH Thiamine HCl 100 mg 10/09/18 11:00 10/18/18 10:35 Vitamin B-1 PO 100 mg QDAY DEIDRA Administration Nutrition/Malnutrition Assess - Dietary Evaluation Nutrition/Malnutrition Findings: Nutrition Notes Start: 10/09/18 14:34 Freq: Status: Active Protocol: Document 10/10/18 15:18 RM (Rec: 10/10/18 15:21 RM [id number]) Nutrition Notes Initial or Follow up Assessment Current Diagnosis COPD,Diabetes,Hypertension, Heart Failure,Hyperlipidemia Other Pertinent Diagnosis Abdominal pain, N/V, Alcohol abuse, GERD Current Diet Cardiac Labs/Tests Reviewed Pertinent Medications Reviewed Height 6 ft Weight 104.1 kg [place] Body Weight (kg) 80.90 BMI 31.1 Subjective/Other Information Pt daughter present at time of visit. Reviewed DM diet education. Gave handout. Burn Absent Trauma Absent #1 Nutrition Diagnosis Food and nutrition-related knowledge deficit Etiology lack of prior education As Evidenced by Signs and Symptoms pt and pt daughter desire for education Nutrition Intervention Teaching Recipient Family Learning Readiness Good Teaching Methods Discussion,Handout Response to Teaching Verbalize understanding Education Handouts Provided Carbohydrate counting for people with diabetes Barriers to Learning No Barriers RD phone number provided Yes Patient aware of follow up options Yes Goal #1 Utilize carbohydrate counting Revisit per MD consult or patient Sign Off request:
[2018-10-19] MEDS: ELIQUIS PO SCH ×2 (09:48→21:36)
[2018-10-19] MEDS: AMARYL PO SCH (09:48)
[2018-10-19] MEDS: FOLVITE PO SCH (09:49)
[2018-10-19] MEDS: SODIUM CHLORIDE FLUSH SYRINGE 10 ML IV SCH ×2 (09:49→21:38)
[2018-10-19] MEDS: PROTONIX PO SCH (09:49)
[2018-10-19] MEDS: TOPROL XL PO SCH (09:50)
[2018-10-19] MEDS: VITAMIN B-1 PO SCH (09:50)
[2018-10-19] MEDS: ZESTRIL PO SCH (09:50)
--- NOTE | 2018-10-19 10:48 | Progress Note ---
Assessment and Plan 1. Bilateral pulmonary emboli 2. Paroxysmal atrial fibrillation 3. Ischemic cardiomyopathy left ventricular ejection fraction 45-50%. Fixed inferior defect on stress MPI 4. Chronic obstructive pulmonary disease 5. Type 2 diabetes mellitus Plan. Cardiac jacobs stable continue present management Subjective Date of service: 10/19/18 Interval history: No cardiac symptoms Objective Vital Signs Temp Pulse Pulse Pulse Resp Resp BP 10/19/18 10:07 146/48 10/19/18 09:50 84 128/55 10/19/18 09:00 77 21 128/55 10/19/18 08:00 77 17 133/69 10/19/18 07:19 79 20 10/19/18 07:07 79 12 10/19/18 07:06 10/19/18 07:00 79 20 133/69 10/19/18 06:00 79 19 134/65 10/19/18 05:45 78 126/65 10/19/18 05:00 80 20 126/65 10/19/18 04:00 85 78 19 142/69 10/19/18 03:46 98 F 10/19/18 03:00 81 18 143/71 10/19/18 02:00 74 18 133/61 10/19/18 01:00 82 16 123/46 10/19/18 00:00 79 84 16 144/68 10/18/18 23:40 95 H 144/68 10/18/18 23:31 98.1 F 10/18/18 23:04 73 16 144/68 10/18/18 23:00 75 16 142/66 10/18/18 22:00 75 19 119/54 10/18/18 21:00 78 23 119/54 10/18/18 20:00 85 84 16 126/49 10/18/18 19:29 98.1 F 10/18/18 19:18 96 H 19 10/18/18 19:08 10/18/18 19:07 90 18 10/18/18 19:00 82 20 144/67 10/18/18 18:00 83 17 135/58 10/18/18 17:24 88 135/58 10/18/18 17:00 95 H 21 121/90 10/18/18 16:00 97.5 F L 84 93 H 21 121/55 10/18/18 15:00 80 22 121/55 10/18/18 14:05 85 21 10/18/18 14:00 82 21 121/55 10/18/18 13:55 84 24 10/18/18 13:00 79 18 129/61 10/18/18 12:08 90 134/63 10/18/18 12:00 98.8 F 94 H 93 H 17 139/76 10/18/18 11:50 98.8 F 10/18/18 11:00 88 15 139/76 Pulse Ox 10/19/18 10:07 100 10/19/18 09:50 10/19/18 09:00 94 10/19/18 08:00 95 10/19/18 07:19 10/19/18 07:07 10/19/18 07:06 97 10/19/18 07:00 89 10/19/18 06:00 88 10/19/18 05:45 10/19/18 05:00 92 10/19/18 04:00 90 10/19/18 03:46 10/19/18 03:00 93 10/19/18 02:00 88 10/19/18 01:00 92 10/19/18 00:00 94 10/18/18 23:40 10/18/18 23:31 10/18/18 23:04 97 10/18/18 23:00 97 10/18/18 22:00 93 10/18/18 21:00 94 10/18/18 20:00 97 10/18/18 19:29 10/18/18 19:18 10/18/18 19:08 93 10/18/18 19:07 10/18/18 19:00 94 10/18/18 18:00 10/18/18 17:24 10/18/18 17:00 96 10/18/18 16:00 98 10/18/18 15:00 98 10/18/18 14:05 10/18/18 14:00 98 10/18/18 13:55 10/18/18 13:00 97 10/18/18 12:08 10/18/18 12:00 97 10/18/18 11:50 10/18/18 11:00 95 - Physical Examination General: Appears Well, No Apparent Distress HEENT: Positive: PERRL Neck: Positive: trachea midline Cardiac: Positive: Regular Rate, S1/S2, PMI, Laterally Displaced. Negative: S3, S4 Lungs: Positive: clear to auscultation, No Wheeze, Rales, Rhonchi Neuro: Positive: Grossly Intact Abdomen: Positive: Unremarkable, Soft Skin: Positive: Clear Extremities: Absent: edema - Imaging and Cardiology EKG: image reviewed - Telemetry EKG Rhythm: Sinus Rhythm - Allied health notes Allied health notes reviewed: RT (Stat ABG at the bedside, results reviewed)
--- NOTE | 2018-10-19 17:40 | Progress Note ---
Assessment and Plan Patient awake . Resting on room air. O2 saturation 96%. O2 saturation 96%.No acute respiratory distress. Patient has Right thoracentesis. Only cell count reported so far.Pleural fluid wbc 205, RBC 745. Rest of the results are pending. - Patient Problems (1) Pulmonary embolism Current Visit: Yes Status: Acute Plan to address problem: Patient is on Apixaban. (2) Pleural effusion, bilateral Current Visit: Yes Status: Acute Plan to address problem: Patient undergone right thoracentesis. Only pleural fluid cell count reported. Pleural fluid wbc 205, RBC 745. (3) Acute respiratory failure with hypoxia Current Visit: Yes Status: Acute Plan to address problem: Improved. Patient is on room air. O2 saturation 96%. Albuterol/Atrovent aerosol treatment q6 hrs Continue solumedrol Patient is on Apixaban. Continue protonix (4) COPD exacerbation Current Visit: No Status: Acute Plan to address problem: O2 supplementatation 2 litres as needed for shortness of breath. Albuterol/atrovent aerosol treatments q 6 hours. Patient is on Apixaban. Continue solumedrol Continue protonix. (5) Atrial flutter Current Visit: Yes Status: Acute Plan to address problem: Patient is on Apixaban. Management as per cardiology. (6) CHF (congestive heart failure) Current Visit: Yes Status: Acute Plan to address problem: Management as per cardiology. (7) GERD (gastroesophageal reflux disease) Current Visit: No Status: Chronic Qualifiers: Esophagitis presence: without esophagitis Qualified Code(s): K21.9 - Gastro-esophageal reflux disease without esophagitis Plan to address problem: Continue Protonix. (8) Hypertension Current Visit: No Status: Chronic Qualifiers: Hypertension type: essential hypertension Qualified Code(s): I10 - Essential (primary) hypertension Plan to address problem: Management as per primary care. Subjective Date of service: 10/19/18 Interval history: Patient awake . Resting on room air. O2 saturation 96%. O2 saturation 96%.No acute respiratory distress. Patient has Right thoracentesis. Only cell count reported so far.Pleural fluid wbc 205, RBC 745. Rest of the results are pending. Objective Vital Signs - 12hr 10/19/18 10/19/18 10/19/18 05:45 06:00 07:00 Temperature Pulse Rate 78 79 79 Pulse Rate [ Bilateral Throughout] Pulse Rate [ From Monitor] Respiratory 19 20 Rate Respiratory Rate [Bilateral Throughout] Blood Pressure 126/65 134/65 133/69 O2 Sat by Pulse 88 89 Oximetry 10/19/18 10/19/18 10/19/18 07:06 07:07 07:19 Temperature Pulse Rate Pulse Rate [ 79 79 Bilateral Throughout] Pulse Rate [ From Monitor] Respiratory Rate Respiratory 12 20 Rate [Bilateral Throughout] Blood Pressure O2 Sat by Pulse 97 Oximetry 10/19/18 10/19/18 10/19/18 08:00 09:00 09:50 Temperature 97.6 F Pulse Rate 77 77 84 Pulse Rate [ Bilateral Throughout] Pulse Rate [ 76 From Monitor] Respiratory 17 21 Rate Respiratory Rate [Bilateral Throughout] Blood Pressure 133/69 128/55 128/55 O2 Sat by Pulse 97 94 Oximetry 10/19/18 10/19/18 10/19/18 10:00 10:07 11:00 Temperature Pulse Rate 80 80 Pulse Rate [ Bilateral Throughout] Pulse Rate [ From Monitor] Respiratory 16 Rate Respiratory Rate [Bilateral Throughout] Blood Pressure 146/48 134/53 O2 Sat by Pulse 100 99 Oximetry 10/19/18 10/19/18 10/19/18 12:00 12:44 13:01 Temperature 98.1 F Pulse Rate 78 88 90 Pulse Rate [ Bilateral Throughout] Pulse Rate [ 81 From Monitor] Respiratory 21 20 Rate Respiratory Rate [Bilateral Throughout] Blood Pressure 134/56 134/56 134/56 O2 Sat by Pulse 99 99 Oximetry 10/19/18 10/19/18 10/19/18 14:00 14:01 14:44 Temperature Pulse Rate 83 88 Pulse Rate [ 81 Bilateral Throughout] Pulse Rate [ From Monitor] Respiratory 23 Rate Respiratory 21 Rate [Bilateral Throughout] Blood Pressure 105/66 O2 Sat by Pulse 98 Oximetry 10/19/18 10/19/18 10/19/18 15:00 15:02 16:00 Temperature 97.5 F L Pulse Rate 83 81 Pulse Rate [ 82 Bilateral Throughout] Pulse Rate [ 83 From Monitor] Respiratory 17 15 Rate Respiratory 18 Rate [Bilateral Throughout] Blood Pressure 121/49 123/49 O2 Sat by Pulse 99 98 Oximetry 10/19/18 17:13 Temperature Pulse Rate 88 Pulse Rate [ Bilateral Throughout] Pulse Rate [ From Monitor] Respiratory Rate Respiratory Rate [Bilateral Throughout] Blood Pressure 132/51 O2 Sat by Pulse Oximetry Constitutional: no acute distress, alert Eyes: non-icteric ENT: oropharynx moist Neck: supple, no lymphadenopathy Effort: mildly labored Ascultation: Bilateral: diminished breath sounds (upper airway referred sounds) Cardiovascular: regular rate and rhythm, other (S1,S2, no murmurs, gallops or rubs) Gastrointestinal: normoactive bowel sounds, soft, non-tender Integumentary: normal Extremities: no cyanosis, no edema Neurologic: normal mental status, non-focal exam, pupils equal and round, motor strength normal and Psychiatric: mood appropriate, affect normal CBC and BMP: 10/18/18 05:09 10/18/18 05:09 ABG, PT/INR, D-dimer: ABG POC ABG pH 7.388 (7.35-7.45) 10/15/18 09:35 POC ABG pCO2 46.3 (35-45) H 10/15/18 09:35 POC ABG pO2 90 (80-105) 10/15/18 09:35 POC ABG HCO3 27.9 (22-26 mml/L) 10/15/18 09:35 POC ABG Total CO2 29 (23-27mmol/L) 10/15/18 09:35 POC ABG O2 Sat 97 10/15/18 09:35 PT/INR, D-dimer PT 14.6 Sec. (12.2-14.9) 10/15/18 10:30 INR 1.07 (0.87-1.13) 10/15/18 10:30 532.59 ng/mlDDU (0-234) H 10/08/18 21:01 Abnormal lab findings: Abnormal Labs 10/08/18 10/08/18 10/08/18 20:40 20:40 21:01 WBC RBC Hgb Hct Lymph % (Auto) Story # Seg Neutrophils % 74.6 H Seg Neutrophils # 7.9 H D-Dimer 532.59 H Heparin Anti-Xa Level POC ABG pH POC ABG pCO2 POC ABG pO2 Sodium 132 L Chloride 96.5 L Carbon Dioxide BUN Creatinine 0.7 L Glucose 109 H POC Glucose Calcium AST 45 H Total Creatine Kinase CK-MB (CK-2) NT-Pro-B Natriuret Pep 10/08/18 10/09/18 10/09/18 21:01 02:12 05:24 WBC RBC Hgb Hct Lymph % (Auto) Story # Seg Neutrophils % Seg Neutrophils # D-Dimer Heparin Anti-Xa Level POC ABG pH POC ABG pCO2 POC ABG pO2 Sodium Chloride Carbon Dioxide BUN Creatinine Glucose POC Glucose 125 H Calcium AST Total Creatine Kinase 620 H CK-MB (CK-2) 12.0 H NT-Pro-B Natriuret Pep 1527 H 10/09/18 10/09/18 10/09/18 07:47 08:02 11:59 WBC RBC Hgb Hct Lymph % (Auto) Story # Seg Neutrophils % Seg Neutrophils # D-Dimer Heparin Anti-Xa Level POC ABG pH POC ABG pCO2 POC ABG pO2 Sodium Chloride Carbon Dioxide BUN Creatinine Glucose POC Glucose 130 H 150 H Calcium AST Total Creatine Kinase 541 H CK-MB (CK-2) 10.1 H NT-Pro-B Natriuret Pep 10/09/18 10/10/18 10/10/18 14:52 03:01 03:01 WBC 13.5 H RBC Hgb Hct Lymph % (Auto) 11.5 L Story # 0.9 H Seg Neutrophils % 81.3 H Seg Neutrophils # 11.0 H D-Dimer Heparin Anti-Xa Level POC ABG pH 7.341 L POC ABG pCO2 POC ABG pO2 62 L Sodium 133 L Chloride 95.7 L Carbon Dioxide BUN Creatinine 0.7 L Glucose 140 H POC Glucose Calcium AST Total Creatine Kinase CK-MB (CK-2) NT-Pro-B Natriuret Pep 10/10/18 10/11/18 10/12/18 06:46 03:48 23:14 WBC RBC Hgb 10.9 L Hct 32.8 L Lymph % (Auto) Story # Seg Neutrophils % Seg Neutrophils # D-Dimer Heparin Anti-Xa Level POC ABG pH POC ABG pCO2 POC ABG pO2 Sodium Chloride Carbon Dioxide BUN Creatinine Glucose POC Glucose 139 H 242 H Calcium AST Total Creatine Kinase CK-MB (CK-2) NT-Pro-B Natriuret Pep 10/13/18 10/13/18 10/13/18 05:05 08:20 11:35 WBC RBC Hgb 11.3 L Hct 33.4 L Lymph % (Auto) Story # Seg Neutrophils % Seg Neutrophils # D-Dimer Heparin Anti-Xa Level POC ABG pH POC ABG pCO2 POC ABG pO2 Sodium Chloride Carbon Dioxide BUN Creatinine Glucose POC Glucose 205 H 297 H Calcium AST Total Creatine Kinase CK-MB (CK-2) NT-Pro-B Natriuret Pep 10/13/18 10/13/18 10/14/18 15:58 21:46 05:33 WBC 15.0 H RBC 3.56 L Hgb 10.7 L Hct 33.0 L Lymph % (Auto) Story # Seg Neutrophils % Seg Neutrophils # D-Dimer Heparin Anti-Xa Level POC ABG pH POC ABG pCO2 POC ABG pO2 Sodium Chloride Carbon Dioxide BUN Creatinine Glucose POC Glucose 209 H 282 H Calcium AST Total Creatine Kinase CK-MB (CK-2) NT-Pro-B Natriuret Pep 10/14/18 10/14/18 10/14/18 05:33 08:28 11:40 WBC RBC Hgb Hct Lymph % (Auto) Story # Seg Neutrophils % Seg Neutrophils # D-Dimer Heparin Anti-Xa Level POC ABG pH POC ABG pCO2 POC ABG pO2 Sodium 131 L Chloride 94.1 L Carbon Dioxide BUN Creatinine 0.7 L Glucose 230 H POC Glucose 275 H 363 H Calcium 8.2 L AST Total Creatine Kinase CK-MB (CK-2) NT-Pro-B Natriuret Pep 10/14/18 10/14/18 10/15/18 16:16 22:45 06:07 WBC 13.0 H RBC 3.63 L Hgb 11.1 L Hct 33.6 L Lymph % (Auto) Story # Seg Neutrophils % Seg Neutrophils # D-Dimer Heparin Anti-Xa Level POC ABG pH POC ABG pCO2 POC ABG pO2 Sodium Chloride Carbon Dioxide BUN Creatinine Glucose POC Glucose 311 H 264 H Calcium AST Total Creatine Kinase CK-MB (CK-2) NT-Pro-B Natriuret Pep 10/15/18 10/15/18 10/15/18 06:07 07:56 09:35 WBC RBC Hgb Hct Lymph % (Auto) Story # Seg Neutrophils % Seg Neutrophils # D-Dimer Heparin Anti-Xa Level POC ABG pH POC ABG pCO2 46.3 H POC ABG pO2 Sodium 133 L Chloride 94.6 L Carbon Dioxide BUN Creatinine 0.5 L Glucose 217 H POC Glucose 223 H Calcium AST Total Creatine Kinase CK-MB (CK-2) NT-Pro-B Natriuret Pep 10/15/18 10/15/18 10/15/18 12:50 16:22 21:21 WBC RBC Hgb Hct Lymph % (Auto) Story # Seg Neutrophils % Seg Neutrophils # D-Dimer Heparin Anti-Xa Level POC ABG pH POC ABG pCO2 POC ABG pO2 Sodium Chloride Carbon Dioxide BUN Creatinine Glucose POC Glucose 197 H 223 H 204 H Calcium AST Total Creatine Kinase CK-MB (CK-2) NT-Pro-B Natriuret Pep 10/16/18 10/16/18 10/16/18 04:51 04:51 08:33 WBC 11.8 H RBC Hgb 11.3 L Hct 34.7 L Lymph % (Auto) Story # Seg Neutrophils % Seg Neutrophils # D-Dimer Heparin Anti-Xa Level POC ABG pH POC ABG pCO2 POC ABG pO2 Sodium 136 L Chloride 97.0 L Carbon Dioxide BUN 21 H Creatinine 0.7 L Glucose 232 H POC Glucose 266 H Calcium 8.1 L AST Total Creatine Kinase CK-MB (CK-2) NT-Pro-B Natriuret Pep 10/16/18 10/16/18 10/16/18 09:48 11:29 16:16 WBC RBC Hgb Hct Lymph % (Auto) Story # Seg Neutrophils % Seg Neutrophils # D-Dimer Heparin Anti-Xa Level 0.77 H POC ABG pH POC ABG pCO2 POC ABG pO2 Sodium Chloride Carbon Dioxide BUN Creatinine Glucose POC Glucose 329 H 293 H Calcium AST Total Creatine Kinase CK-MB (CK-2) NT-Pro-B Natriuret Pep 10/16/18 10/17/18 10/17/18 22:14 04:30 04:30 WBC 16.2 H RBC Hgb 11.7 L Hct Lymph % (Auto) Story # Seg Neutrophils % Seg Neutrophils # D-Dimer Heparin Anti-Xa Level POC ABG pH POC ABG pCO2 POC ABG pO2 Sodium 136 L Chloride 94.8 L Carbon Dioxide BUN Creatinine 0.6 L Glucose 263 H POC Glucose 188 H Calcium 8.3 L AST Total Creatine Kinase CK-MB (CK-2) NT-Pro-B Natriuret Pep 10/17/18 10/17/18 10/17/18 07:53 11:51 16:37 WBC RBC Hgb Hct Lymph % (Auto) Story # Seg Neutrophils % Seg Neutrophils # D-Dimer Heparin Anti-Xa Level POC ABG pH POC ABG pCO2 POC ABG pO2 Sodium Chloride Carbon Dioxide BUN Creatinine Glucose POC Glucose 228 H 339 H 276 H Calcium AST Total Creatine Kinase CK-MB (CK-2) NT-Pro-B Natriuret Pep 10/17/18 10/18/18 10/18/18 21:36 05:09 05:09 WBC 19.5 H RBC Hgb Hct Lymph % (Auto) Story # Seg Neutrophils % Seg Neutrophils # D-Dimer Heparin Anti-Xa Level POC ABG pH POC ABG pCO2 POC ABG pO2 Sodium 135 L Chloride 91.7 L Carbon Dioxide 34 H BUN Creatinine 0.6 L Glucose 212 H POC Glucose 260 H Calcium AST Total Creatine Kinase CK-MB (CK-2) NT-Pro-B Natriuret Pep 10/18/18 10/18/18 10/18/18 07:28 11:43 16:39 WBC RBC Hgb Hct Lymph % (Auto) Story # Seg Neutrophils % Seg Neutrophils # D-Dimer Heparin Anti-Xa Level POC ABG pH POC ABG pCO2 POC ABG pO2 Sodium Chloride Carbon Dioxide BUN Creatinine Glucose POC Glucose 211 H 229 H 269 H Calcium AST Total Creatine Kinase CK-MB (CK-2) NT-Pro-B Natriuret Pep 10/18/18 10/18/18 10/19/18 19:01 21:35 08:11 WBC RBC Hgb Hct Lymph % (Auto) Story # Seg Neutrophils % Seg Neutrophils # D-Dimer Heparin Anti-Xa Level 1.67 H POC ABG pH POC ABG pCO2 POC ABG pO2 Sodium Chloride Carbon Dioxide BUN Creatinine Glucose POC Glucose 274 H 223 H Calcium AST Total Creatine Kinase CK-MB (CK-2) NT-Pro-B Natriuret Pep 10/19/18 11:45 WBC RBC Hgb Hct Lymph % (Auto) Story # Seg Neutrophils % Seg Neutrophils # D-Dimer Heparin Anti-Xa Level POC ABG pH POC ABG pCO2 POC ABG pO2 Sodium Chloride Carbon Dioxide BUN Creatinine Glucose POC Glucose 246 H Calcium AST Total Creatine Kinase CK-MB (CK-2) NT-Pro-B Natriuret Pep Allied health notes reviewed: RT (Stat ABG at the bedside, results reviewed)
[2018-10-19] MEDS: PRAVACHOL PO SCH (21:37)
[2018-10-20] MEDS: CARDIZEM PO SCH ×4 (02:08→17:58)
[2018-10-20] MEDS: TESSALON PERLES PO SCH ×3 (05:11→21:20)
[2018-10-20] MEDS: LASIX IV SCH ×2 (05:12→17:58)
--- NOTE | 2018-10-20 08:43 | Progress Note ---
Assessment and Plan Patient awake . Resting on room air. O2 saturation 99%.No acute respiratory distress. Patient has Right thoracentesis. Only cell count reported so far.Pleural fluid wbc 205, RBC 745. Rest of the results are pending. - Patient Problems (1) Pulmonary embolism Current Visit: Yes Status: Acute Plan to address problem: Patient is on Apixaban. (2) Pleural effusion, bilateral Current Visit: Yes Status: Acute Plan to address problem: Patient undergone right thoracentesis. Only pleural fluid cell count reported. Pleural fluid wbc 205, RBC 745. (3) Acute respiratory failure with hypoxia Current Visit: Yes Status: Acute Plan to address problem: Improved. Patient is on room air. O2 saturation 99%. Albuterol/Atrovent aerosol treatment q6 hrs Continue solumedrol Patient is on Apixaban. Continue protonix (4) COPD exacerbation Current Visit: No Status: Acute Plan to address problem: O2 supplementatation 2 litres as needed for shortness of breath. Albuterol/atrovent aerosol treatments q 6 hours. Patient is on Apixaban. Continue solumedrol Continue protonix. (5) Atrial flutter Current Visit: Yes Status: Acute Plan to address problem: Patient is on Apixaban. Management as per cardiology. (6) CHF (congestive heart failure) Current Visit: Yes Status: Acute Plan to address problem: Management as per cardiology. (7) GERD (gastroesophageal reflux disease) Current Visit: No Status: Chronic Qualifiers: Esophagitis presence: without esophagitis Qualified Code(s): K21.9 - Gastro-esophageal reflux disease without esophagitis Plan to address problem: Continue Protonix. (8) Hypertension Current Visit: No Status: Chronic Qualifiers: Hypertension type: essential hypertension Qualified Code(s): I10 - Essential (primary) hypertension Plan to address problem: Management as per primary care. Subjective Date of service: 10/20/18 Interval history: Patient awake . Resting on room air. O2 saturation 99%.No acute respiratory distress. Patient has Right thoracentesis. Only cell count reported so far.Pleural fluid wbc 205, RBC 745. Rest of the results are pending. Objective Vital Signs - 12hr 10/19/18 10/19/18 10/19/18 21:00 22:00 22:27 Temperature Pulse Rate 76 75 70 Pulse Rate [ From Monitor] Respiratory 21 21 19 Rate Blood Pressure 133/55 135/52 135/52 O2 Sat by Pulse 93 94 96 Oximetry 10/19/18 10/20/18 10/20/18 23:00 00:00 00:01 Temperature 98.0 F Pulse Rate 70 74 Pulse Rate [ 69 From Monitor] Respiratory 16 16 20 Rate Blood Pressure 128/56 140/59 O2 Sat by Pulse 98 93 93 Oximetry 10/20/18 10/20/18 10/20/18 01:00 02:00 02:08 Temperature Pulse Rate 77 75 75 Pulse Rate [ From Monitor] Respiratory 22 22 Rate Blood Pressure 138/64 133/62 133/62 O2 Sat by Pulse 94 95 Oximetry 10/20/18 10/20/18 10/20/18 03:00 04:00 05:00 Temperature 98.6 F Pulse Rate 77 71 77 Pulse Rate [ 73 From Monitor] Respiratory 22 20 18 Rate Blood Pressure 139/61 143/61 144/66 O2 Sat by Pulse 94 94 94 Oximetry 10/20/18 10/20/18 05:11 06:00 Temperature Pulse Rate 79 85 Pulse Rate [ From Monitor] Respiratory Rate Blood Pressure 144/66 135/67 O2 Sat by Pulse 94 Oximetry Constitutional: no acute distress, alert Eyes: non-icteric ENT: oropharynx moist Neck: supple, no lymphadenopathy Effort: mildly labored Ascultation: Bilateral: diminished breath sounds (upper airway referred sounds) Cardiovascular: regular rate and rhythm, other (S1,S2, no murmurs, gallops or rubs) Gastrointestinal: normoactive bowel sounds, soft, non-tender Integumentary: normal Extremities: no cyanosis, no edema Neurologic: normal mental status, non-focal exam, pupils equal and round, motor strength normal and Psychiatric: mood appropriate, affect normal CBC and BMP: 10/18/18 05:09 10/18/18 05:09 ABG, PT/INR, D-dimer: ABG POC ABG pH 7.388 (7.35-7.45) 10/15/18 09:35 POC ABG pCO2 46.3 (35-45) H 10/15/18 09:35 POC ABG pO2 90 (80-105) 10/15/18 09:35 POC ABG HCO3 27.9 (22-26 mml/L) 10/15/18 09:35 POC ABG Total CO2 29 (23-27mmol/L) 10/15/18 09:35 POC ABG O2 Sat 97 10/15/18 09:35 PT/INR, D-dimer PT 14.6 Sec. (12.2-14.9) 10/15/18 10:30 INR 1.07 (0.87-1.13) 10/15/18 10:30 532.59 ng/mlDDU (0-234) H 10/08/18 21:01 Abnormal lab findings: Abnormal Labs 10/08/18 10/08/18 10/08/18 20:40 20:40 21:01 WBC RBC Hgb Hct Lymph % (Auto) [place] # Seg Neutrophils % 74.6 H Seg Neutrophils # 7.9 H D-Dimer 532.59 H Heparin Anti-Xa Level POC ABG pH POC ABG pCO2 POC ABG pO2 Sodium 132 L Chloride 96.5 L Carbon Dioxide BUN Creatinine 0.7 L Glucose 109 H POC Glucose Calcium AST 45 H Total Creatine Kinase CK-MB (CK-2) NT-Pro-B Natriuret Pep 10/08/18 10/09/18 10/09/18 21:01 02:12 05:24 WBC RBC Hgb Hct Lymph % (Auto) [place] # Seg Neutrophils % Seg Neutrophils # D-Dimer Heparin Anti-Xa Level POC ABG pH POC ABG pCO2 POC ABG pO2 Sodium Chloride Carbon Dioxide BUN Creatinine Glucose POC Glucose 125 H Calcium AST Total Creatine Kinase 620 H CK-MB (CK-2) 12.0 H NT-Pro-B Natriuret Pep 1527 H 10/09/18 10/09/18 10/09/18 07:47 08:02 11:59 WBC RBC Hgb Hct Lymph % (Auto) [place] # Seg Neutrophils % Seg Neutrophils # D-Dimer Heparin Anti-Xa Level POC ABG pH POC ABG pCO2 POC ABG pO2 Sodium Chloride Carbon Dioxide BUN Creatinine Glucose POC Glucose 130 H 150 H Calcium AST Total Creatine Kinase 541 H CK-MB (CK-2) 10.1 H NT-Pro-B Natriuret Pep 10/09/18 10/10/18 10/10/18 14:52 03:01 03:01 WBC 13.5 H RBC Hgb Hct Lymph % (Auto) 11.5 L [place] # 0.9 H Seg Neutrophils % 81.3 H Seg Neutrophils # 11.0 H D-Dimer Heparin Anti-Xa Level POC ABG pH 7.341 L POC ABG pCO2 POC ABG pO2 62 L Sodium 133 L Chloride 95.7 L Carbon Dioxide BUN Creatinine 0.7 L Glucose 140 H POC Glucose Calcium AST Total Creatine Kinase CK-MB (CK-2) NT-Pro-B Natriuret Pep 10/10/18 10/11/18 10/12/18 06:46 03:48 23:14 WBC RBC Hgb 10.9 L Hct 32.8 L Lymph % (Auto) [place] # Seg Neutrophils % Seg Neutrophils # D-Dimer Heparin Anti-Xa Level POC ABG pH POC ABG pCO2 POC ABG pO2 Sodium Chloride Carbon Dioxide BUN Creatinine Glucose POC Glucose 139 H 242 H Calcium AST Total Creatine Kinase CK-MB (CK-2) NT-Pro-B Natriuret Pep 10/13/18 10/13/18 10/13/18 05:05 08:20 11:35 WBC RBC Hgb 11.3 L Hct 33.4 L Lymph % (Auto) [place] # Seg Neutrophils % Seg Neutrophils # D-Dimer Heparin Anti-Xa Level POC ABG pH POC ABG pCO2 POC ABG pO2 Sodium Chloride Carbon Dioxide BUN Creatinine Glucose POC Glucose 205 H 297 H Calcium AST Total Creatine Kinase CK-MB (CK-2) NT-Pro-B Natriuret Pep 10/13/18 10/13/18 10/14/18 15:58 21:46 05:33 WBC 15.0 H RBC 3.56 L Hgb 10.7 L Hct 33.0 L Lymph % (Auto) [place] # Seg Neutrophils % Seg Neutrophils # D-Dimer Heparin Anti-Xa Level POC ABG pH POC ABG pCO2 POC ABG pO2 Sodium Chloride Carbon Dioxide BUN Creatinine Glucose POC Glucose 209 H 282 H Calcium AST Total Creatine Kinase CK-MB (CK-2) NT-Pro-B Natriuret Pep 10/14/18 10/14/18 10/14/18 05:33 08:28 11:40 WBC RBC Hgb Hct Lymph % (Auto) [place] # Seg Neutrophils % Seg Neutrophils # D-Dimer Heparin Anti-Xa Level POC ABG pH POC ABG pCO2 POC ABG pO2 Sodium 131 L Chloride 94.1 L Carbon Dioxide BUN Creatinine 0.7 L Glucose 230 H POC Glucose 275 H 363 H Calcium 8.2 L AST Total Creatine Kinase CK-MB (CK-2) NT-Pro-B Natriuret Pep 10/14/18 10/14/18 10/15/18 16:16 22:45 06:07 WBC 13.0 H RBC 3.63 L Hgb 11.1 L Hct 33.6 L Lymph % (Auto) [place] # Seg Neutrophils % Seg Neutrophils # D-Dimer Heparin Anti-Xa Level POC ABG pH POC ABG pCO2 POC ABG pO2 Sodium Chloride Carbon Dioxide BUN Creatinine Glucose POC Glucose 311 H 264 H Calcium AST Total Creatine Kinase CK-MB (CK-2) NT-Pro-B Natriuret [place] 10/15/18 10/15/18 10/15/18 06:07 07:56 09:35 WBC RBC Hgb Hct Lymph % (Auto) [place] # Seg Neutrophils % Seg Neutrophils # D-Dimer Heparin Anti-Xa Level POC ABG pH POC ABG pCO2 46.3 H POC ABG pO2 Sodium 133 L Chloride 94.6 L Carbon Dioxide BUN Creatinine 0.5 L Glucose 217 H POC Glucose 223 H Calcium AST Total Creatine Kinase CK-MB (CK-2) NT-Pro-B Natriuret [place] 10/15/18 10/15/18 10/15/18 12:50 16:22 21:21 WBC RBC Hgb Hct Lymph % (Auto) [place] # Seg Neutrophils % Seg Neutrophils # D-Dimer Heparin Anti-Xa Level POC ABG pH POC ABG pCO2 POC ABG pO2 Sodium Chloride Carbon Dioxide BUN Creatinine Glucose POC Glucose 197 H 223 H 204 H Calcium AST Total Creatine Kinase CK-MB (CK-2) NT-Pro-B Natriuret [place] 10/16/18 10/16/18 10/16/18 04:51 04:51 08:33 WBC 11.8 H RBC Hgb 11.3 L Hct 34.7 L Lymph % (Auto) [place] # Seg Neutrophils % Seg Neutrophils # D-Dimer Heparin Anti-Xa Level POC ABG pH POC ABG pCO2 POC ABG pO2 Sodium 136 L Chloride 97.0 L Carbon Dioxide BUN 21 H Creatinine 0.7 L Glucose 232 H POC Glucose 266 H Calcium 8.1 L AST Total Creatine Kinase CK-MB (CK-2) NT-Pro-B Natriuret Pep 10/16/18 10/16/18 10/16/18 09:48 11:29 16:16 WBC RBC Hgb Hct Lymph % (Auto) [place] # Seg Neutrophils % Seg Neutrophils # D-Dimer Heparin Anti-Xa Level 0.77 H POC ABG pH POC ABG pCO2 POC ABG pO2 Sodium Chloride Carbon Dioxide BUN Creatinine Glucose POC Glucose 329 H 293 H Calcium AST Total Creatine Kinase CK-MB (CK-2) NT-Pro-B Natriuret Pep 10/16/18 10/17/18 10/17/18 22:14 04:30 04:30 WBC 16.2 H RBC Hgb 11.7 L Hct Lymph % (Auto) [place] # Seg Neutrophils % Seg Neutrophils # D-Dimer Heparin Anti-Xa Level POC ABG pH POC ABG pCO2 POC ABG pO2 Sodium 136 L Chloride 94.8 L Carbon Dioxide BUN Creatinine 0.6 L Glucose 263 H POC Glucose 188 H Calcium 8.3 L AST Total Creatine Kinase CK-MB (CK-2) NT-Pro-B Natriuret Pep 10/17/18 10/17/18 10/17/18 07:53 11:51 16:37 WBC RBC Hgb Hct Lymph % (Auto) [place] # Seg Neutrophils % Seg Neutrophils # D-Dimer Heparin Anti-Xa Level POC ABG pH POC ABG pCO2 POC ABG pO2 Sodium Chloride Carbon Dioxide BUN Creatinine Glucose POC Glucose 228 H 339 H 276 H Calcium AST Total Creatine Kinase CK-MB (CK-2) NT-Pro-B Natriuret Pep 10/17/18 10/18/18 10/18/18 21:36 05:09 05:09 WBC 19.5 H RBC Hgb Hct Lymph % (Auto) [place] # Seg Neutrophils % Seg Neutrophils # D-Dimer Heparin Anti-Xa Level POC ABG pH POC ABG pCO2 POC ABG pO2 Sodium 135 L Chloride 91.7 L Carbon Dioxide 34 H BUN Creatinine 0.6 L Glucose 212 H POC Glucose 260 H Calcium AST Total Creatine Kinase CK-MB (CK-2) NT-Pro-B Natriuret Pep 10/18/18 10/18/18 10/18/18 07:28 11:43 16:39 WBC RBC Hgb Hct Lymph % (Auto) [place] # Seg Neutrophils % Seg Neutrophils # D-Dimer Heparin Anti-Xa Level POC ABG pH POC ABG pCO2 POC ABG pO2 Sodium Chloride Carbon Dioxide BUN Creatinine Glucose POC Glucose 211 H 229 H 269 H Calcium AST Total Creatine Kinase CK-MB (CK-2) NT-Pro-B Natriuret Pep 10/18/18 10/18/18 10/19/18 19:01 21:35 08:11 WBC RBC Hgb Hct Lymph % (Auto) [place] # Seg Neutrophils % Seg Neutrophils # D-Dimer Heparin Anti-Xa Level 1.67 H POC ABG pH POC ABG pCO2 POC ABG pO2 Sodium Chloride Carbon Dioxide BUN Creatinine Glucose POC Glucose 274 H 223 H Calcium AST Total Creatine Kinase CK-MB (CK-2) NT-Pro-B Natriuret Pep 10/19/18 10/19/18 10/19/18 11:45 16:18 21:59 WBC RBC Hgb Hct Lymph % (Auto) [place] # Seg Neutrophils % Seg Neutrophils # D-Dimer Heparin Anti-Xa Level POC ABG pH POC ABG pCO2 POC ABG pO2 Sodium Chloride Carbon Dioxide BUN Creatinine Glucose POC Glucose 246 H 233 H 294 H Calcium AST Total Creatine Kinase CK-MB (CK-2) NT-Pro-B Natriuret Pep 10/20/18 08:31 WBC RBC Hgb Hct Lymph % (Auto) [place] # Seg Neutrophils % Seg Neutrophils # D-Dimer Heparin Anti-Xa Level POC ABG pH POC ABG pCO2 POC ABG pO2 Sodium Chloride Carbon Dioxide BUN Creatinine Glucose POC Glucose 205 H Calcium AST Total Creatine Kinase CK-MB (CK-2) NT-Pro-B Natriuret Pep Allied health notes reviewed: RT (Stat ABG at the bedside, results reviewed)
[2018-10-20] MEDS: HumuLIN R SUB-Q SCH ×4 (08:50→21:18)
[2018-10-20] MEDS: GLUCOPHAGE PO SCH ×2 (08:50→17:58)
[2018-10-20] MEDS: DUONEB *Not for PRN Use IH SCH ×2 (09:01→15:09)
[2018-10-20] MEDS: BROVANA NEBU IH SCH (09:01)
[2018-10-20] MEDS: PULMICORT IH SCH (09:01)
[2018-10-20] MEDS: ELIQUIS PO SCH ×2 (09:23→21:17)
[2018-10-20] MEDS: VITAMIN B-1 PO SCH (09:23)
[2018-10-20] MEDS: ZESTRIL PO SCH (09:23)
[2018-10-20] MEDS: TOPROL XL PO SCH (09:24)
[2018-10-20] MEDS: PROTONIX PO SCH (09:24)
[2018-10-20] MEDS: FOLVITE PO SCH (09:24)
[2018-10-20] MEDS: AMARYL PO SCH (09:24)
[2018-10-20] MEDS: SODIUM CHLORIDE FLUSH SYRINGE 10 ML IV SCH ×2 (09:25→21:20)
[2018-10-20] MEDS ORDERED: SOLU-Medrol IV SCH (10:00)
--- NOTE | 2018-10-20 10:07 | Progress Note ---
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 Recommend: Outpatient cardiac follow up for asymptomatic valvular heart lesions November 02 at 3pm. Otherwise, conservative cardiac management. Subjective Date of service: 10/20/18 Interval history: Patient is resting in bed and appears comfortable. He denies chest pain and s hortness of breath. Objective Vital Signs Temp Pulse Pulse Pulse Resp Resp BP 10/20/18 09:26 76 18 10/20/18 09:01 78 18 10/20/18 09:00 10/20/18 08:00 84 12 133/67 10/20/18 07:00 80 19 126/68 10/20/18 06:00 85 135/67 10/20/18 05:11 79 144/66 10/20/18 05:00 77 18 144/66 10/20/18 04:00 98.6 F 71 73 20 143/61 10/20/18 03:00 77 22 139/61 10/20/18 02:08 75 133/62 10/20/18 02:00 75 22 133/62 10/20/18 01:00 77 22 138/64 10/20/18 00:01 74 20 140/59 10/20/18 00:00 98.0 F 69 16 10/19/18 23:00 70 16 128/56 10/19/18 22:27 70 19 135/52 10/19/18 22:00 75 21 135/52 10/19/18 21:00 76 21 133/55 10/19/18 20:00 98.3 F 77 75 20 143/54 10/19/18 19:01 82 16 146/62 10/19/18 18:15 88 15 132/51 10/19/18 17:13 88 132/51 10/19/18 17:00 80 20 132/51 10/19/18 16:00 97.5 F L 81 83 15 123/49 10/19/18 15:02 82 18 10/19/18 15:00 83 17 121/49 10/19/18 14:44 81 21 10/19/18 14:01 88 23 105/66 10/19/18 14:00 83 10/19/18 13:01 90 20 134/56 10/19/18 12:44 88 134/56 10/19/18 12:00 98.1 F 78 81 21 134/56 10/19/18 11:00 80 16 134/53 10/19/18 10:07 146/48 Pulse Ox 10/20/18 09:26 10/20/18 09:01 10/20/18 09:00 96 10/20/18 08:00 91 10/20/18 07:00 93 10/20/18 06:00 94 10/20/18 05:11 10/20/18 05:00 94 10/20/18 04:00 94 10/20/18 03:00 94 10/20/18 02:08 10/20/18 02:00 95 10/20/18 01:00 94 10/20/18 00:01 93 10/20/18 00:00 93 10/19/18 23:00 98 10/19/18 22:27 96 10/19/18 22:00 94 10/19/18 21:00 93 10/19/18 20:00 95 10/19/18 19:01 94 10/19/18 18:15 75 L 10/19/18 17:13 10/19/18 17:00 99 10/19/18 16:00 98 10/19/18 15:02 10/19/18 15:00 99 10/19/18 14:44 10/19/18 14:01 98 10/19/18 14:00 10/19/18 13:01 99 10/19/18 12:44 10/19/18 12:00 99 10/19/18 11:00 99 10/19/18 10:07 100 - Physical Examination General: Appears Well, No Apparent Distress HEENT: Positive: PERRL Neck: Positive: trachea midline Cardiac: Positive: Reg Rate and Rhythm Lungs: Positive: Decreased Breath Sounds Neuro: Positive: Grossly Intact Extremities: Absent: edema - Allied health notes Allied health notes reviewed: RT (Stat ABG at the bedside, results reviewed)
--- NOTE | 2018-10-20 12:18 | Discharge Summary ---
Providers - Providers Date of Admission: 10/09/18 01:46 Attending physician: BRIDGETTE TORRES MD 10/09/18 01:46 Consult to Physician [CONS] Routine Comment: Consulting Provider: LEA GUERRERO Physician Instructions: Reason For Exam: cc 10/09/18 01:53 Consult to Physician [CONS] Routine Comment: Consulting Provider: MALU NUNO Physician Instructions: Reason For Exam: afib/rvr 10/09/18 10:35 Consult to Dietitian/Nutrition [CONS] Routine Physician Instructions: Reason For Exam: Reason for Consult: Malnutrition 10/09/18 12:08 Consult to Physician [CONS] Routine Comment: Consulting Provider: CAMRYN BARRETT Physician Instructions: Reason For Exam: abdominal pain 10/16/18 09:27 Physical Therapy Evaluation and Treat [CONS] Routine Comment: Reason For Exam: gen weakness 10/18/18 13:42 Consult to Case Management [CONS] Urgent Services Needed at Discharge: Home O2 Home [facility] Services Notified:: YES Phone number called:: [phone] Was contact made?: Yes If yes, spoke with:: [place] Time called:: 13:45 Primary care physician: DARRELL QUINONES Hospitalization Reason for admission: respiratory failure Condition: Stable Hospital course: Patient is 78-year-old man with history of COPD, CHF, hypertension, hyperlipidemia, GERD, diabetes presented to emergency room with complaints of nausea, abdominal pain and shortness of breath. Patient has history of alcoholism drinks 10-12 beers a day. He was diagnosed with acute resp failure put on high flow Oxygen by ct CT Angio revealed bilateral pulmonary embolism so was put on heparin drip. He also had bilateral pleural effusions R>L and had right thoracentesis. His breathing improved, Oxygen weaned off. His O2 sat normal on room air at rest but desaturates on ambulation. Case management consulted to arrange home Oxygen. He is stable to go home on home Oxygen. Acute respiratory failure with hypoxia -Patient was treated and subsequently discharged on oxygen Bilateral pulmonary emboli Started Eliquis COPD exacerbation steroids, nebs, LABA and inhaled steroid Acute on chronic systolic chf, EF 40-45% Cont Lasix Atrial fibrillation with RVR and hypercoagulable state -Cardiology evaluated and as noted above was placed on oral diltiazem and Eliquis Bilateral pleural effusion R > L s/p thoracentesis right, results will be followed with the PCp and [employer] Abdominal pain is nonspecific Likely GERD, PPI CT abdomen and pelvis, shows no acute findings GI input appreciated Alcohol dependence and withdrawal CIWA protocol, IV fluids, Folate and Thiamine Counselling provided to patient. All imaging studies and findings discussed with plan of care advised. Disposition: [id number] HOME UNDER HOME [facility] Time spent for discharge: 35 MINS Core Measure Documentation - Palliative Care Palliative Care/ Comfort Measures: Not Applicable - Core Measures Any of the following diagnoses?: none Exam - Physical Exam Narrative exam: Gen: Not in acute distress, lying in bed, obese HEENT: Normocephalic, atraumatic Neck: supple, no JVD Heart: S1 and S2 reg, no murmurs, rubs or gallop Lungs: Clear, no wheeze Abd: soft, non tender, non distended, normal BS Ext: No edema, no clubbing, no cyanosis, Neuro: Awake,alert,oriented x 3, moves all ext, non focal - Constitutional Vitals: Temp Pulse Resp BP Pulse Ox 97.9 F 82 21 135/56 98 10/20/18 11:39 10/20/18 11:00 10/20/18 11:00 10/20/18 11:00 10/20/18 11:00 Plan Activity: advance as tolerated, fall precautions Diet: low fat, diabetic Special Instructions: record daily weights, record daily BP diary, record blood sugar diary, home oxygen via (nasal cannula @ 2 liters per minute), other (MUST QUIT ETOH) Durable Medical Equipment Needed Upon Discharge: Oxygen Follow up with: [facility] [Referring] - 3-5 Days DIXON SANTOYO MD [Staff Physician] - 11/02/18 3:00 pm ANDREW NJ MD [Staff Physician] - 7 Days Prescriptions: Insulin Regular, Human [HumuLIN R] 0 unit SQ AC #1 vial Other Discharge Orders: Glucometer (Amb) Location: None Selected Glucometer supplies[Amb] Location: None Selected Nebulizer (Amb) Location: None Selected
[2018-10-20 18:29] VITALS: BP 164/73
[2018-10-20] MEDS: PRAVACHOL PO SCH (21:19)
[2018-10-21 10:37] LABS: Amylase,Body Fluid < 10; LDH,Body Fluid 69; Total Protein,Body Fluid < 3.0 (15.0-45.0)
[2018-10-25] MEDS ORDERED: ELIQUIS PO SCH (10:00)
== END 2018-10-20 21:22 | disposition home health service (06) | DRG 175 ==
LOC: ED 20:01 → CC1 10-09 01:46 → IMCU 10-09 18:11
PROVIDERS: ADMIT Internal Medicine; ATTEND Internal Medicine
PROC: 4A033R1 Measurement of Arterial Saturation, Peripheral, Percutaneous Approach (ICD-10-PCS; 2018-10-09)
PROC: 0W993ZZ Drainage of Right Pleural Cavity, Percutaneous Approach (ICD-10-PCS; principal; 2018-10-15)
DX: I26.99 Other pulmonary embolism without acute cor pulmonale (principal); J96.01 Acute respiratory failure with hypoxia; I50.23 Acute on chronic systolic (congestive) heart failure; I48.92 Unspecified atrial flutter; E87.1 Hypo-osmolality and hyponatremia; J91.8 Pleural effusion in other conditions classified elsewhere; F10.239 Alcohol dependence with withdrawal, unspecified; D68.59 Other primary thrombophilia; J44.1 Chronic obstructive pulmonary disease with (acute) exacerbation; E66.9 Obesity, unspecified; E78.00 Pure hypercholesterolemia, unspecified; I11.0 Hypertensive heart disease with heart failure; E11.9 Type 2 diabetes mellitus without complications; I48.0 Paroxysmal atrial fibrillation; I25.5 Ischemic cardiomyopathy; G89.29 Other chronic pain; K21.9 Gastro-esophageal reflux disease without esophagitis; E78.5 Hyperlipidemia, unspecified; Z82.49 Family history of ischemic heart disease and other diseases of the circulatory system; Z79.82 Long term (current) use of aspirin; Z79.84 Long term (current) use of oral hypoglycemic drugs; Z79.899 Other long term (current) drug therapy; Z83.3 Family history of diabetes mellitus; Z68.31 Body mass index [BMI] 31.0-31.9, adult; Z87.891 Personal history of nicotine dependence; Z79.51 Long term (current) use of inhaled steroids
CPT/HCPCS: 32555; 36415; 36600; 71045; 71046; 71275; 74177; 76604; 80048; 80053; 81001; 82040; 82150; 82550; 82553; 82803; 82947; 82962; 83605; 83690; 83735; 83880; 84160; 84443; 84484; 85014; 85018; 85025; 85027; 85049; 85379; 85520; 85610; 85730; 87102; 87116; 88112; 88305; 88341; 88342; 89051; 93005; 93010; 93306; 93970; 94640; 94660; 94760; G0378; A9270-GY; J1644; J1815; J1940; J2060; J2270; J2920; J2930; J7030; Q9967

== ENCOUNTER 2018-10-21 12:31 | Inpatient (IN) | payer MEDICARE ==
--- NOTE | 2018-10-21 13:42 | Emergency Department Report ---
HPI - General Chief Complaint: Weakness Time Seen by Provider: 10/21/18 13:07 - HPI HPI: Room 7 The patient is an 78-year-old male presented with a chief complaint of weakness and near syncope. Patient was discharged from this hospital yesterday after abby perez diagnosed with bilateral PEs, pleural effusion requiring home O2. Family states they received a call from the home health nurse today stating that they had to call [phone] because the patient had a near syncopal episode. Patient was walking from the bathroom when he began to feel weak and dizzy causing him to slide down the wall. Patient denies ever losing consciousness. The home health nurse stated the patient had a heart rate of 125 bpm. Patient denies chest pain or palpitations. When asked if he felt short of breath the patient states she cannot recall. The patient states he had his home O2 on during the episode. She denies unilateral weakness or numbness. Location: [See above] Duration: [See above] Quality: [See above] Severity: [See above] Modifying factors: [see above] Context: [see above] Mode of transportation: [not driving] ED Past Medical Hx - Past Medical History Previous Medical History?: Yes Hx Hypertension: Yes Hx Congestive Heart Failure: Yes Hx Diabetes: Yes Additional medical history: HIGH CHOLESTEROL - Surgical History Additional Surgical History: Thoracentesis - Family History Family history: no significant - Social History Smoking Status: Former Smoker (none 12 years) Substance Use Type: None - Medications Home Medications: Home Medications Medication Instructions Recorded Confirmed Last Taken Type Pravastatin Sodium [Pravastatin] 10 mg PO QHS 03/29/15 10/09/18 10/08/18 History 10 mg Amlodipine Besylate/Benazepril 1 each PO QDAY #30 05/08/18 10/09/18 10/08/18 Rx [Lotrel 5-10 mg] Aspirin [Aspirin BABY CHEW TAB] 81 mg PO QDAY 10/09/18 10/09/18 Unknown History Glimepiride [Amaryl] 4 mg PO DAILY 10/09/18 10/09/18 Unknown History Omeprazole 20 mg PO QDAY 10/09/18 10/09/18 Unknown History Tiotropium [place] [Spiriva 1.25 mcg INHALATION DAILY 10/09/18 10/09/18 Unknown History Respimat] metFORMIN 500 mg PO BID 10/09/18 10/09/18 Unknown History ALBUTEROL NEB's [Proventil 0.083% 2.5 mg IH Q6HRT PRN #90 nebu 10/20/18 Unknown Rx NEBS] Apixaban [Eliquis] 5 mg PO Q12HR #60 tablet 10/20/18 Unknown Rx Benzonatate [Tessalon Perles] 100 mg PO Q8HR #14 capsule 10/20/18 Unknown Rx Fluticasone/Salmeterol [Advair 1 puff IH BID 30 Days disk.w.dev 10/20/18 Unknown Rx Diskus 250-50 mcg] Folic Acid [Folvite] 1 mg PO QDAY #30 tablet 10/20/18 Unknown Rx Furosemide [Lasix TAB] 40 mg PO QDAY #30 tablet 10/20/18 Unknown Rx Insulin NPH/Regular [NovoLIN 70/30] 14 unit SUB-Q BIDDIAB 30 Days 10/20/18 Un known Rx units Insulin Regular, Human [HumuLIN R] 0 unit SQ AC #1 vial 10/20/18 Unknown Rx Ipratropium/Albuterol Sulfate 1 ampul IH TIDRT #90 ampul.neb 10/20/18 Unknown Rx [DUONEB *Not for PRN Use*] Metoprolol Xl [Metoprolol 25 mg PO QDAY #30 tablet 10/20/18 Unknown Rx SUCCINATE ER TAB] Pantoprazole [Protonix TAB] 40 mg PO QDAY #30 tablet 10/20/18 Unknown Rx Prednisone [predniSONE 10 mg 10 mg PO .TAPER #1 tab.ds.pk 10/20/18 Unknown Rx (6-Day Pack, 21 Tabs)] Thiamine [Vitamin B-1] 100 mg PO QDAY #30 tablet 10/20/18 Unknown Rx dilTIAZem [Cardizem] 60 mg PO Q6HR #180 tablet 10/20/18 Unknown Rx ED Review of Systems ROS: Stated complaint: WEAKNESS Other details as noted in HPI Constitutional: weakness Eyes: denies: eye pain ENT: denies: throat pain Respiratory: shortness of breath (?) Cardiovascular: denies: chest pain, palpitations Endocrine: no symptoms reported Gastrointestinal: denies: abdominal pain Genitourinary: denies: dysuria Musculoskeletal: denies: back pain Neurological: denies: headache Physical Exam - Physical Exam Vital Signs: Vital Signs 10/21/18 12:50 Temperature 97.9 F Pulse Rate 84 Respiratory 14 Rate Blood Pressure 121/63 O2 Sat by Pulse 100 Oximetry Physical Exam: GENERAL: The patient is well-developed well-nourished male lying on stretcher not appearing to be in acute distress. [] HEENT: Normocephalic. Atraumatic. Extraocular motions are intact. Patient has moist mucous membranes. NECK: Supple. Trachea midline CHEST/LUNGS: Clear to auscultation. There is no respiratory distress noted. HEART/CARDIOVASCULAR: Regular. There is no tachycardia. There is no gallop rub or murmur. ABDOMEN: Abdomen is soft, nontender. Patient has normal bowel sounds. There is no abdominal distention. SKIN: There is no rash. There is no edema. There is no diaphoresis. NEURO: The patient is awake, alert, and oriented. The patient is cooperative. The patient has no focal neurologic deficits. The patient has normal speech. Cranial nerves II through XII grossly intact, no drift MUSCULOSKELETAL: There is no evidence of acute injury. ED Course Vital Signs 10/21/18 12:50 Temperature 97.9 F Pulse Rate 84 Respiratory 14 Rate Blood Pressure 121/63 O2 Sat by Pulse 100 Oximetry ED Medical Decision Making - Lab Data Result diagrams: 10/21/18 14:02 10/21/18 14:02 Laboratory Tests 10/21/18 10/21/18 10/21/18 13:02 14:02 14:02 WBC 27.3 H RBC 4.29 Hgb 13.0 Hct 39.6 MCV 92 MCH 30 MCHC 33 RDW 14.6 Plt Count 278 PT 15.7 H INR 1.17 H APTT 24.5 Sodium Potassium Chloride Carbon Dioxide Anion Gap BUN Creatinine Estimated GFR BUN/Creatinine Ratio Glucose POC Glucose 84 Calcium Magnesium Total Bilirubin AST ALT Alkaline Phosphatase Total Creatine Kinase CK-MB (CK-2) CK-MB (CK-2) Rel Index Troponin T NT-Pro-B Natriuret Pep Total Protein Albumin Albumin/Globulin Ratio 10/21/18 14:02 WBC RBC Hgb Hct MCV MCH MCHC RDW Plt Count PT INR APTT Sodium 135 L Potassium 4.0 Chloride 88.8 L Carbon Dioxide 37 H Anion Gap 13 BUN 22 H Creatinine 0.7 L Estimated GFR > 60 BUN/Creatinine Ratio 31 Glucose 75 POC Glucose Calcium 8.9 Magnesium 2.50 H Total Bilirubin 0.80 AST 14 ALT 29 Alkaline Phosphatase 39 Total Creatine Kinase 116 CK-MB (CK-2) 4.9 H CK-MB (CK-2) Rel Index 4.2 H Troponin T < 0.010 NT-Pro-B Natriuret Pep 938.1 H Total Protein 6.0 L Albumin 3.7 L Albumin/Globulin Ratio 1.6 - EKG Data -: EKG Interpreted by Pa EKG shows normal: sinus rhythm Rate: normal - EKG Data When compared to previous EKG there are: changes noted Interpretation: nonspecific ST-T wave cait (new T-wave inversion in lead 3 when compared to previous EKG dated 10/09/2018) - Radiology Data Radiology results: report reviewed (CT head), image reviewed (CT head) [facility] [address] [place] [address] Cat Scan Report Signed Patient: ELIO QUINONES MR#: [id number] 8 : 1940 Acct:[id number] Age/Sex: 78 / M ADM Date: 10/21/18 Loc: ED Attending Dr: Ordering Physician: JUVENTINO MABRY MD Date of Service: 10/21/18 Procedure(s): CT head/brain wo con Accession Number(s): [id number] cc: JUVENTINO MABRY MD PROCEDURE: CT HEAD/BRAIN WO CON TECHNIQUE: Computerized tomography of the head was performed without contrast material. CT DOSE LENGTH PRODUCT: 1803.77 mGy-cm. HISTORY: near syncope, dizziness COMPARISONS: None currently available. FINDINGS: There is no evidence for acute ischemia. There is no hemorrhage. There is no midline shift. There is no hydrocephalus. There is no mass. Age appropriate vigil-white matter attenuation is noted. There is no calvarial fracture. The temporal bones demonstrate aerated mastoid air cells. The middle ears appear unremarkable. Paranasal sinuses are unremarkable. Globes are intact. IMPRESSION: * No acute intracranial findings. This document is electronically signed by Dewayne Brandon MD., Oct 21 2018 02:01:01 PM ET Transcribed By: TYM Dictated By: DEWAYNE BRANDON MD Electronically Authenticated By: DEWAYNE BRANDON MD Signed Date/Time: 10/21/18 1403 DD/ 1349 TD/TT: 10/21/18 1349 - Differential Diagnosis dysrhythmia, symptomatic anemia, CHF Critical care attestation.: If time is entered above; I have spent that time in minutes in the direct care of this critically ill patient, excluding procedure time. ED Disposition Clinical Impression: Weakness, Near syncope, Leukocytosis, CHF (congestive heart failure), Hypermagnesemia Disposition: OP ADMIT IP TO THIS HOSP Is pt being admited?: Yes Does the pt Need Aspirin: No Condition: Fair Referrals: PRIMARY CARE, [Referring] - 3-5 Days Time of Disposition: 15:08 (hospitalist paged (Dr Larson))
--- NOTE | 2018-10-21 14:03 | Cat Scan Report ---
PROCEDURE: CT HEAD/BRAIN WO CON TECHNIQUE: Computerized tomography of the head was performed without contrast material. CT DOSE LENGTH PRODUCT: 1803.77 mGy-cm. HISTORY: near syncope, dizziness COMPARISONS: None currently available. FINDINGS: There is no evidence for acute ischemia. There is no hemorrhage. There is no midline shift. There is no hydrocephalus. There is no mass. Age appropriate vigil-white matter attenuation is noted. There is no calvarial fracture. The temporal bones demonstrate aerated mastoid air cells. The middle ears appear unremarkable. Paranasal sinuses are unremarkable. Globes are intact. IMPRESSION: * No acute intracranial findings. This document is electronically signed by Dewayne Hickey MD., Oct 21 2018 02:01:01 PM ET
[2018-10-21 14:37] LABS: Hematocrit 39.6 % (35.5-45.6); Mean Corpuscular HGB Conc 33 % (32-34); Mean Corpuscular Volume 92 fl (84-94); Platelet Count 278 K/mm3 (140-440); Red Blood Count 4.29 M/mm3 (3.65-5.03); Red Cell Distribution Width 14.6 % (13.2-15.2)
[2018-10-21 14:46] LABS: INR 1.17 (0.87-1.13)
[2018-10-21 14:47] LABS: Partial Thromboplastin Time 24.5 Sec. (24.2-36.6)
[2018-10-21 14:54] LABS: Creatine Kinase MB 4.9 ng/mL (0.0-4.0)
[2018-10-21 14:55] LABS: Alanine Aminotransferase 29 units/L (7-56); Albumin 3.7 g/dL (3.9-5); BUN/Creatinine Ratio 31; Blood Urea Nitrogen 22 mg/dL (9-20); Calcium 8.9 mg/dL (8.4-10.2); Hemolysis Index 3
[2018-10-21 15:22] LABS: Basophils % (Manual) 0 % (0.0-1.8); Eosinophils % (Manual) 0 % (0.0-4.3); Monocytes % (Manual) 7.5 % (0.0-7.3); Total Cells Counted 200
[2018-10-21 15:23] LABS: Poikilocytosis 1+
[2018-10-21 15:24] LABS: Ovalocytes Rare; Target Cells Few
--- NOTE | 2018-10-21 15:51 | History and Physical Report ---
History of Present Illness Chief complaint: I feel weak, and tired, and dont have any energy History of present illness: 78 YO Male with HTN, Systolic CHF, DM, HLD, Bilateral Pulmonary Embolism on Therapeutic Anticoagulation with Eliquis, Chronic Respiratory Failure on Home Oxygen presents to ED for evaluation. Pt reports that he has experienced weakness and fatigue over the past 1 day. Pt also acknowledges dietary and medication noncompliance, as well as 6lbs weight gain over the past 1 day. Pt was ambulating in his home without his supplemental oxygen and experienced acute onset dizziness, weakness and was unable to stand independently. Pt acknowledges decreased exercise tolerance, dypsnea with exertion, dypsnea at rest. EMS notified, and upon arrival the patient was found to be in distress and transported to [facility]. Pt seen and evaluated in ED and found to have symptoms consistent with CHF Decompensation, as well as SIRS. Pt admitted to telemetry and initiated on CHF protocol. Cardiology consulted in ED. Pt denies fever, chills, hemoptysis, BRBPR, Unintentional weight loss, night sweats, seizure, vertigo, loss of bowel/bladder continence. Prior admission on 10/09/18 reviewed. All listed medication reconciled at time of admission. Past History Past Medical History: diabetes, heart failure, hypertension, hyperlipidemia, pulmonary embolism Past Surgical History: Other (thoracentesis) Social history: single. denies: smoking, alcohol abuse, prescription drug abuse Family history: diabetes, hypertension Medications and Allergies Allergies Allergy/AdvReac Type Severity Reaction Status Date / Time No Known Allergies Allergy Verified 03/30/15 02:20 Home Medications Medication Instructions Recorded Confirmed Last Taken Type Pravastatin Sodium [Pravastatin] 10 mg PO QHS 03/29/15 10/21/18 10/08/18 History 10 mg Amlodipine Besylate/Benazepril 1 each PO QDAY #30 05/08/18 10/21/18 10/08/18 Rx [Lotrel 5-10 mg] Aspirin [Aspirin BABY CHEW TAB] 81 mg PO QDAY 10/09/18 10/21/18 Unknown History Glimepiride [Amaryl] 4 mg PO DAILY 10/09/18 10/21/18 Unknown History Omeprazole 20 mg PO QDAY 10/09/18 10/21/18 Unknown History Tiotropium [place] [Spiriva 1.25 mcg INHALATION DAILY 10/09/18 10/21/18 Unknown History Respimat] metFORMIN 500 mg PO BID 10/09/18 10/21/18 Unknown History ALBUTEROL NEB's [Proventil 0.083% 2.5 mg IH Q6HRT PRN #90 nebu 10/20/18 10/21/18 Unknown Rx NEBS] Apixaban [Eliquis] 5 mg PO Q12HR #60 tablet 10/20/18 10/21/18 Unknown Rx Benzonatate [Tessalon Perles] 100 mg PO Q8HR #14 capsule 10/20/18 10/21/18 Unknown Rx Fluticasone/Salmeterol [Advair 1 puff IH BID 30 Days disk.w.dev 10/20/18 10/21/18 Unknown Rx Diskus 250-50 mcg] Folic Acid [Folvite] 1 mg PO QDAY #30 tablet 10/20/18 10/21/18 Unknown Rx Furosemide [Lasix TAB] 40 mg PO QDAY #30 tablet 10/20/18 10/21/18 Unknown Rx Insulin NPH/Regular [NovoLIN 70/30] 14 unit SUB-Q BIDDIAB 30 Days 10/20/18 10/21/18 Unknown Rx units Insulin Regular, Human [HumuLIN R] 0 unit SQ AC #1 vial 10/20/18 10/21/18 Unknown Rx Ipratropium/Albuterol Sulfate 1 ampul IH TIDRT #90 ampul.neb 10/20/18 10/21/18 Unknown Rx [DUONEB *Not for PRN Use*] Metoprolol Xl [Metoprolol 25 mg PO QDAY #30 tablet 10/20/18 10/21/18 Unknown Rx SUCCINATE ER TAB] Pantoprazole [Protonix TAB] 40 mg PO QDAY #30 tablet 10/20/18 10/21/18 Unknown Rx Prednisone [predniSONE 10 mg 10 mg PO .TAPER #1 tab.ds.pk 10/20/18 10/21/18 Unknown Rx (6-Day Pack, 21 Tabs)] Thiamine [Vitamin B-1] 100 mg PO QDAY #30 tablet 10/20/18 10/21/18 Unknown Rx dilTIAZem [Cardizem] 60 mg PO Q6HR #180 tablet 10/20/18 10/21/18 Unknown Rx Review of Systems Constitutional: weight gain, weakness, malaise, no fever, no chills, no sweats Ears, nose, mouth and throat: no ear pain, no ear discharge, no tinnitis, no decreased hearing Cardiovascular: shortness of breath, dyspnea on exertion, decreased exercise tolerance, no chest pain, no orthopnea, no palpitations, no rapid/irregular heart beat Respiratory: no cough, no cough with sputum, no excessive sputum, no hemoptysis Gastrointestinal: no nausea, no vomiting, no diarrhea, no constipation Rectal: no pain, no incontinence, no bleeding Musculoskeletal: no neck stiffness, no neck pain, no shooting arm pain, no arm numbness/tingling, no low back pain Integumentary: no rash, no pruritis, no redness, no sores, no wounds Neurological: no transient paralysis, no paralysis, no weakness, no parathesias, no numbness, no tingling Psychiatric: no anxiety, no sleep disturbances, no insomnia, no hypersomnia Endocrine: no cold intolerance, no heat intolerance, no polyphagia, no excessive thirst, no polydipsia Hematologic/Lymphatic: no easy bruising, no easy bleeding Allergic/Immunologic: no urticaria, no allergic rhinitis, no wheezing Exam - Constitutional Vitals: Temp Pulse Resp BP Pulse Ox 97.9 F 84 14 121/63 100 10/21/18 12:50 10/21/18 12:50 10/21/18 12:50 10/21/18 12:50 10/21/18 12:50 General appearance: Present: mild distress - EENT Eyes: Present: PERRL ENT: hearing intact, clear oral mucosa - Neck Neck: Present: supple, normal ROM - Respiratory Respiratory effort: normal Respiratory: bilateral: CTA - Cardiovascular Heart Sounds: Present: S1 & S2. Absent: rub, click - Extremities Extremities: pulses symmetrical Extremity abnormal: edema Peripheral Pulses: within normal limits - Abdominal General gastrointestinal: Present: soft, non-tender, non-distended, normal bowel sounds Male genitourinary: Present: normal - Integumentary Integumentary: Present: clear, warm, dry - Musculoskeletal Musculoskeletal: gait normal, strength equal bilaterally - Psychiatric Psychiatric: appropriate mood/affect, intact judgment & insight - Neurologic Neurologic: CNII-XII intact, moves all extremities Results - Labs CBC & Chem 7: 10/21/18 14:02 10/21/18 14:02 Labs: Abnormal lab results 10/21/18 10/21/18 10/21/18 Range/Units 14:02 14:02 14:02 WBC 27.3 H (4.5-11.0) K/mm3 Seg Neuts % (Manual) 82.5 H (40.0-70.0) % Lymphocytes % (Manual) 10.0 L (13.4-35.0) % Monocytes % (Manual) 7.5 H (0.0-7.3) % Seg Neutrophils # Man 22.5 H (1.8-7.7) K/mm3 Monocytes # (Manual) 2.0 H (0.0-0.8) K/mm3 PT 15.7 H (12.2-14.9) Sec. INR 1.17 H (0.87-1.13) Sodium 135 L (137-145) mmol/L Chloride 88.8 L (98-107) mmol/L Carbon Dioxide 37 H (22-30) mmol/L BUN 22 H (9-20) mg/dL Creatinine 0.7 L (0.8-1.5) mg/dL Magnesium 2.50 H (1.7-2.3) mg/dL CK-MB (CK-2) 4.9 H (0.0-4.0) ng/mL CK-MB (CK-2) Rel Index 4.2 H (0-4) NT-Pro-B Natriuret Pep 938.1 H (0-900) pg/mL Total Protein 6.0 L (6.3-8.2) g/dL Albumin 3.7 L (3.9-5) g/dL Assessment and Plan - Patient Problems (1) SIRS (systemic inflammatory response syndrome) Current Visit: Yes Status: Acute Plan to address problem: CBC, CMP, Empiric antibiotic therapy, Chest xray, urinalysis, blood cultures, serial lactic acid, repeat cbc in AM. (2) Acute and chronic respiratory failure Current Visit: Yes Status: Acute Plan to address problem: Supplemental oxygen, pulse oximetry, chest x ray, ABG, continue therapeutic anticoagulation for bilateral PE, pulmonary toilet, NIPPv as clinically indicated. (3) CHF (congestive heart failure) Current Visit: Yes Status: Acute Qualifiers: Heart failure type: systolic Heart failure chronicity: acute on chronic Qualified Code(s): I50.23 - Acute on chronic systolic (congestive) heart failure Plan to address problem: Admit to telemetry, strict I/O, daily weight, bnp, diuresis, chest xray, afterload reduction. (4) Pulmonary embolism Current Visit: No Status: Acute Qualifiers: Chronicity: chronic Plan to address problem: Continue therapeutic anticoagulation, supplemental oxygen, nebulizer therapy, pulmonary toilet. (5) Hyperlipidemia Current Visit: No Status: Chronic Qualifiers: Hyperlipidemia type: mixed hyperlipidemia Qualified Code(s): E78.2 - Mixed hyperlipidemia Plan to address problem: Statin therapy, lipid panel, low cholesterol diet, risk factor reduction (6) Hypertension Current Visit: No Status: Chronic Qualifiers: Hypertension type: essential hypertension Plan to address problem: monitor bp q shift, supportive care, continue medical management. (7) Diabetes Current Visit: Yes Status: Acute Plan to address problem: ADA diet, insulin sliding scale, accu check, hypoglycemia protocol. (8) DVT prophylaxis Current Visit: No Status: Acute Plan to address problem: SCD to BLE while in bed, continue therapeutic anticoagulation
--- NOTE | 2018-10-21 16:51 | XRay Report ---
PROCEDURE: XR CHEST 1V AP TECHNIQUE: Chest radiograph single view. HISTORY: dypsnea COMPARISONS: None . FINDINGS: Bilateral pulmonary vascular and interstitial prominence which appears similar to the prior exam. Car diac and mediastinal contours are unremarkable. There is bilateral parahilar airspace disease. IMPRESSION: Findings most consistent with CHF slightly improved from prior exam This document is electronically signed by Thaddeus Christian MD., Oct 21 2018 04:49:22 PM ET
[2018-10-21 16:59] LABS: Bilirubin,Urine NEG (Negative); Blood,Urine NEG (Negative); Color,Urine Yellow (Yellow); Protein,Urine <15 mg/dL mg/dL (Negative)
[2018-10-21] MEDS ORDERED: SODIUM CHLORIDE FLUSH SYRINGE 10 ML IV PRN (17:21)
[2018-10-21] MEDS ORDERED: TYLENOL PO PRN (17:21)
[2018-10-21] MEDS ORDERED: PROVENTIL IH PRN ×2 (17:21→17:25)
[2018-10-21] MEDS ORDERED: ZOFRAN IV PRN (17:21)
[2018-10-21] MEDS ORDERED: D50W (25GM) Syringe IV PRN (17:28)
[2018-10-21] MEDS ORDERED: VANCOMYCIN 2,000 MG in NACL 0.9% 500 ML 500 ML IV ONE (18:00)
[2018-10-21] MEDS ORDERED: VANCOMYCIN PHARMACY TO DOSE IV SCH (18:00)
[2018-10-21] MEDS: DUONEB *Not for PRN Use IH SCH (20:26)
[2018-10-21] MEDS: PULMICORT IH SCH (20:26)
[2018-10-21] MEDS: BROVANA NEBU IH SCH (20:56)
[2018-10-21] MEDS ORDERED: NON-FORMULARY (Fluticasone/Salmeterol [Advair Diskus 250-50 Mcg] 1 PUFF) IH SCH (22:00)
[2018-10-21] MEDS ORDERED: NON-FORMULARY (Pravastatin Sodium [Pravastatin] 10 MG) PO SCH (22:00)
[2018-10-21] MEDS: ELIQUIS PO SCH (22:19)
[2018-10-21] MEDS: CARDIZEM PO SCH (22:19)
[2018-10-21] MEDS: TESSALON PERLES PO SCH (22:19)
[2018-10-21] MEDS: PRAVACHOL PO SCH (22:20)
[2018-10-21] MEDS: SODIUM CHLORIDE FLUSH SYRINGE 10 ML IV SCH (22:20)
[2018-10-21] MEDS: HumuLIN R SUB-Q SCH (23:06)
[2018-10-22] MEDS: CARDIZEM PO SCH ×3 (00:06→19:58)
[2018-10-22 02:37] LABS: Hematocrit 36.7 % (35.5-45.6); Mean Corpuscular HGB Conc 33 % (32-34); Mean Corpuscular Volume 92 fl (84-94); Platelet Count 241 K/mm3 (140-440); Red Blood Count 3.97 M/mm3 (3.65-5.03); Red Cell Distribution Width 14.6 % (13.2-15.2)
[2018-10-22 02:56] LABS: BUN/Creatinine Ratio 28; Blood Urea Nitrogen 17 mg/dL (9-20); Calcium 7.8 mg/dL (8.4-10.2); Hemolysis Index 4
[2018-10-22] MEDS: TESSALON PERLES PO SCH ×3 (05:36→21:42)
[2018-10-22] MEDS: LASIX IV SCH (05:37)
[2018-10-22 05:41] LABS: Band Neutrophils # (Manual) 0.2 K/mm3; Basophils % (Manual) 0 % (0.0-1.8); Total Cells Counted 100
[2018-10-22 05:42] LABS: Ovalocytes Few; Platelet Estimate Consistent w Auto; Poikilocytosis 1+
[2018-10-22] MEDS: BROVANA NEBU IH SCH ×2 (08:35→21:27)
[2018-10-22] MEDS: PULMICORT IH SCH ×2 (08:35→21:25)
[2018-10-22] MEDS: DUONEB *Not for PRN Use IH SCH ×3 (08:36→21:25)
[2018-10-22] MEDS ORDERED: AMLODIPINE BESYLATE PO SCH (10:00)
[2018-10-22] MEDS ORDERED: NON-FORMULARY (Omeprazole 20 MG) PO SCH (10:00)
[2018-10-22] MEDS ORDERED: BENAZEPRIL PO SCH (10:00)
[2018-10-22] MEDS ORDERED: TIOTROPIUM BROMIDE 1.25 MCG INHALATION SCH (10:00)
[2018-10-22] MEDS ORDERED: SPIRIVA IH SCH (10:00)
[2018-10-22] MEDS: TOPROL XL PO SCH (10:40)
[2018-10-22] MEDS: BABY ASPIRIN PO SCH (10:40)
[2018-10-22] MEDS: ELIQUIS PO SCH ×2 (10:40→21:42)
[2018-10-22] MEDS: PROTONIX PO SCH (10:40)
[2018-10-22] MEDS: VITAMIN B-1 PO SCH (10:40)
[2018-10-22] MEDS: NORVASC PO SCH (10:41)
[2018-10-22] MEDS: FOLVITE PO SCH (10:41)
[2018-10-22] MEDS: VANCOMYCIN 1,500 MG in NACL 0.9% 500 ML 500 ML IV SCH (10:41)
[2018-10-22] MEDS: ZESTRIL PO SCH (10:41)
[2018-10-22] MEDS: HumuLIN R SUB-Q SCH ×3 (10:42→21:42)
[2018-10-22] MEDS: SODIUM CHLORIDE FLUSH SYRINGE 10 ML IV SCH ×2 (10:43→21:43)
--- NOTE | 2018-10-22 12:58 | Progress Note ---
Assessment and Plan Assessment and plan: SIRS. Follow-up urine and blood cultures, serial lactic acid levels. Acute on chronic respiratory failure. Continue supplemental oxygen. Follow-up serial chest x-ray and ABGs. Etiology multifactorial secondary to heart failure and pulmonary embolism. Acute systolic heart failure. Patient with recent echocardiogram 10/09/18 which revealed EF 40-45% and mildly decreased systolic function. The mitral valve leaflets are severely thickened with restricted opening. Moderate to severe mitral regurgitation and tricuspid regurgitation. Severe pulmonary hypertension. Right ventricular systolic pressure is currently 69 mmHg. History of pulmonary embolus. Cont. Eliquis Nonsustained V. tach. Patient reportedly with an episode of 10 beat run of V. tach this morning. Cardiology consultation pending. Hyperlipidemia. Continue pravastatin. Hypertension. Resume antihypertensive medications. Diabetes mellitus type 2. History Interval history: Patient with a 10 beat run of V. tach. Hospitalist Physical - Constitutional Vitals: Temp Pulse Resp BP Pulse Ox 97.6 F 82 14 123/61 99 10/22/18 11:02 10/22/18 11:02 10/22/18 11:02 10/22/18 11:02 10/22/18 11:02 General appearance: Present: no acute distress - EENT Eyes: Present: PERRL, EOM intact ENT: hearing intact, clear oral mucosa, dentition normal - Neck Neck: Present: supple, normal ROM - Respiratory Respiratory effort: normal Respiratory: bilateral: CTA - Cardiovascular Rhythm: regular Heart Sounds: Present: S1 & S2. Absent: gallop, rub - Extremities Extremities: no ischemia, No edema, Full ROM - Abdominal General gastrointestinal: soft, non-tender, non-distended, normal bowel sounds - Integumentary Integumentary: Present: clear, warm, dry - Neurologic Neurologic: CNII-XII intact, moves all extremities Results - Labs CBC & Chem 7: 10/22/18 02:20 10/22/18 02:20 Labs: Laboratory Last Values WBC 20.4 K/mm3 (4.5-11.0) H 10/22/18 02:20 RBC 3.97 M/mm3 (3.65-5.03) 10/22/18 02:20 Hgb 12.0 gm/dl (11.8-15.2) 10/22/18 02:20 Hct 36.7 % (35.5-45.6) 10/22/18 02:20 MCV 92 fl (84-94) 10/22/18 02:20 MCH 30 pg (28-32) 10/22/18 02:20 MCHC 33 % (32-34) 10/22/18 02:20 RDW 14.6 % (13.2-15.2) 10/22/18 02:20 Plt Count 241 K/mm3 (140-440) 10/22/18 02:20 Add Manual Diff Complete 10/22/18 02:20 Total Counted 100 10/22/18 02:20 Seg Neuts % (Manual) 73.0 % (40.0-70.0) H 10/22/18 02:20 1.0 % 10/22/18 02:20 16.0 % (13.4-35.0) 10/22/18 02:20 Reactive Lymphs % (Man) 0 % 10/22/18 02:20 8.0 % (0.0-7.3) H 10/22/18 02:20 1.0 % (0.0-4.3) 10/22/18 02:20 0 % (0.0-1.8) 10/22/18 02:20 1.0 % 10/22/18 02:20 0 % 10/22/18 02:20 0 % 10/22/18 02:20 0 % 10/22/18 02:20 Nucleated RBC % Not Reportable 10/22/18 02:20 Seg Neutrophils # Man 14.9 K/mm3 (1.8-7.7) H 10/22/18 02:20 Band Neutrophils # 0.2 K/mm3 10/22/18 02:20 3.3 K/mm3 (1.2-5.4) 10/22/18 02:20 Abs React Lymphs (Man) 0.0 K/mm3 10/22/18 02:20 1.6 K/mm3 (0.0-0.8) H 10/22/18 02:20 0.2 K/mm3 (0.0-0.4) 10/22/18 02:20 0.0 K/mm3 (0.0-0.1) 10/22/18 02:20 0.2 K/mm3 10/22/18 02:20 0.0 K/mm3 10/22/18 02:20 0.0 K/mm3 10/22/18 02:20 Blast Cells # 0.0 K/mm3 10/22/18 02:20 WBC Morphology Not Reportable 10/22/18 02:20 Hypersegmented Neuts Not Reportable 10/22/18 02:20 Hyposegmented Neuts Not Reportable 10/22/18 02:20 Hypogranular Neuts Not Reportable 10/22/18 02:20 Not Reportable 10/22/18 02:20 Not Reportable 10/22/18 02:20 Not Reportable 10/22/18 02:20 Not Reportable 10/22/18 02:20 Not Reportable 10/22/18 02:20 Not Reportable 10/22/18 02:20 Consistent w auto 10/22/18 02:20 Not Reportable 10/22/18 02:20 Plt Clumps, EDTA Not Reportable 10/22/18 02:20 Not Reportable 10/22/18 02:20 Not Reportable 10/22/18 02:20 Not Reportable 10/22/18 02:20 Plt Morphology Comment Not Reportable 10/22/18 02:20 RBC Morphology Not Reportable 10/22/18 02:20 Dimorphic RBCs Not Reportable 10/22/18 02:20 Not Reportable 10/22/18 02:20 Not Reportable 10/22/18 02:20 1+ 10/22/18 02:20 Not Reportable 10/22/18 02:20 Not Reportable 10/22/18 02:20 Not Reportable 10/22/18 02:20 Not Reportable 10/22/18 02:20 Not Reportable 10/22/18 02:20 Not Reportable 10/22/18 02:20 Not Reportable 10/22/18 02:20 Not Reportable 10/22/18 02:20 Few 10/22/18 02:20 Not Reportable 10/22/18 02:20 Not Reportable 10/22/18 02:20 Not Reportable 10/22/18 02:20 Not Reportable 10/22/18 02:20 Not Reportable 10/22/18 02:20 Not Reportable 10/22/18 02:20 Few 10/22/18 02:20 Acanthocytes (Spur) Not Reportable 10/22/18 02:20 Rouleaux Not Reportable 10/22/18 02:20 Not Reportable 10/22/18 02:20 Not Reportable 10/22/18 02:20 Not Reportable 10/22/18 02:20 Not Reportable 10/22/18 02:20 Hem Pathologist Commnt No 10/22/18 02:20 PT 15.7 Sec. (12.2-14.9) H 10/21/18 14:02 INR 1.17 (0.87-1.13) H 10/21/18 14:02 APTT 24.5 Sec. (24.2-36.6) 10/21/18 14:02 POC ABG pH 7.455 (7.35-7.45) H 10/21/18 20:40 POC ABG pCO2 48.6 (35-45) H 10/21/18 20:40 POC ABG pO2 63 (80-105) L 10/21/18 20:40 POC ABG HCO3 34.2 (22-26 mml/L) 10/21/18 20:40 POC ABG Total CO2 36 (23-27mmol/L) 10/21/18 20:40 POC ABG O2 Sat 92 10/21/18 20:40 POC ABG Base Excess 10 ((-2) - (+3)mmol/L) 10/21/18 20:40 2 % 10/21/18 20:40 Sodium 134 mmol/L (137-145) L 10/22/18 02:20 Potassium 3.7 mmol/L (3.6-5.0) 10/22/18 02:20 Chloride 93.2 mmol/L (98-107) L 10/22/18 02:20 Carbon Dioxide 34 mmol/L (22-30) H 10/22/18 02:20 11 mmol/L 10/22/18 02:20 BUN 17 mg/dL (9-20) 10/22/18 02:20 0.6 mg/dL (0.8-1.5) L 10/22/18 02:20 Estimated GFR > 60 ml/min 10/22/18 02:20 28 % 10/22/18 02:20 Glucose 259 mg/dL (75-100) H 10/22/18 02:20 POC Glucose 191 (70-105) H 10/22/18 11:05 Lactic Acid 1.10 mmol/L (0.7-2.0) 10/22/18 05:47 Calcium 7.8 mg/dL (8.4-10.2) L 10/22/18 02:20 Magnesium 2.50 mg/dL (1.7-2.3) H 10/21/18 14:02 0.80 mg/dL (0.1-1.2) 10/21/18 14:02 AST 14 units/L (5-40) 10/21/18 14:02 ALT 29 units/L (7-56) 10/21/18 14:02 39 units/L (35-129) 10/21/18 14:02 116 units/L (55-170) 10/21/18 14:02 CK-MB (CK-2) 4.9 ng/mL (0.0-4.0) H 10/21/18 14:02 CK-MB (CK-2) Rel Index 4.2 (0-4) H 10/21/18 14:02 < 0.010 ng/mL (0.00-0.029) 10/21/18 14:02 NT-Pro-B Natriuret Pep 938.1 pg/mL (0-900) H 10/21/18 14:02 6.0 g/dL (6.3-8.2) L 10/21/18 14:02 3.7 g/dL (3.9-5) L 10/21/18 14:02 1.6 % 10/21/18 14:02 Yellow (Yellow) 10/21/18 16:45 Slightly-cloudy (Clear) 10/21/18 16:45 8.0 (5.0-7.0) H 10/21/18 16:45 Ur Specific [place] 1.014 (1.003-1.030) 10/21/18 16:45 <15 mg/dl mg/dL (Negative) 10/21/18 16:45 Neg mg/dL (Negative) 10/21/18 16:45 Neg mg/dL (Negative) 10/21/18 16:45 Neg (Negative) 10/21/18 16:45 Neg (Negative) 10/21/18 16:45 Neg (Negative) 10/21/18 16:45 4.0 mg/dL (<2.0) 10/21/18 16:45 Ur Leukocyte Esterase Neg (Negative) 10/21/18 16:45 1.0 /HPF (0.0-6.0) 10/21/18 16:45 1.0 /HPF (0.0-6.0) 10/21/18 16:45 U Epithel Cells (Auto) < 1.0 /HPF (0-13.0) 10/21/18 16:45 Active Medications - Current Medications Current Medications: Generic Name Dose Route Start Last Admin Trade Name Freq PRN Reason Stop Dose Admin Acetaminophen 650 mg 10/21/18 17:21 Tylenol PO Q4H PRN Pain MILD(1-3)/Fever >100.5/DUCKWORTH Albuterol 2.5 mg 10/21/18 17:21 Proventil IH Q4HRT PRN Shortness Of Breath Albuterol 2.5 mg 10/21/18 17:25 Proventil IH Q6HRT PRN Shortness Of Breath Albuterol/Ipratropium 1 ampul 10/21/18 20:00 10/22/18 08:36 Duoneb *Not For Prn Use* IH Not Given TIDRT DEIDRA Amlodipine Besylate 5 mg 10/22/18 10:00 10/22/18 10:41 Norvasc PO 5 mg QDAY DEIDRA Administration Apixaban 5 mg 10/21/18 22:00 10/22/18 10:40 Eliquis PO 5 mg Q12HR DEIDRA Administration Protocol Arformoterol Tartrate 15 mcg 10/21/18 20:00 10/22/18 08:35 Brovana Nebu IH 15 mcg Q12HRT DEIDRA Administration Aspirin 81 mg 10/22/18 10:00 10/22/18 10:40 Baby Aspirin PO 81 mg QDAY DEIDRA Administration Benzonatate 100 mg 10/21/18 22:00 10/22/18 05:36 Tessalon Perles PO 100 mg Q8HR DEIDRA Administration Budesonide 0.5 mg 10/21/18 20:00 10/22/18 08:35 Pulmicort IH 0.5 mg BIDRT DEIDRA Administration Dextrose 50 ml 10/21/18 17:28 D50w (25gm) Syringe IV PRN PRN Hypoglycemia Diltiazem HCl 60 mg 10/21/18 18:00 10/22/18 05:36 Cardizem PO 60 mg Q6HR DEIDRA Administration Folic Acid 1 mg 10/22/18 10:00 10/22/18 10:41 Folvite PO 1 mg QDAY DEIDRA Administration Furosemide 40 mg 10/22/18 06:00 10/22/18 05:37 Lasix IV 40 mg DAILY@0600 DEIDRA Administration Vancomycin HCl 1,500 mg/ 530 mls @ 333.333 mls/hr 10/22/18 08:00 10/22/18 10:41 Sodium Chloride IV 333.333 mls/hr Q24H DEIDRA Administration Insulin Human Isoph/Insulin Regular 14 unit 10/22/18 08:00 10/22/18 10:41 Humulin 70/30 SUB-Q 14 unit BIDDIAB DEIDRA Administration Insulin Human Regular 0 units 10/21/18 22:00 10/22/18 10:42 Humulin R SUB-Q Not Given ACHS [facility] Protocol Lisinopril 10 mg 10/22/18 10:00 10/22/18 10:41 Zestril PO 10 mg QDAY DEIDRA Administration Metoprolol Succinate 25 mg 10/22/18 10:00 10/22/18 10:40 Toprol Xl PO 25 mg QDAY DEIDRA Administration Ondansetron HCl 4 mg 10/21/18 17:21 Zofran IV Q8H PRN Nausea And Vomiting Pantoprazole Sodium 40 mg 10/22/18 10:00 10/22/18 10:40 Protonix PO 40 mg QDAY DEIDRA Administration Pravastatin Sodium 10 mg 10/21/18 22:00 10/21/18 22:20 Pravachol PO 10 mg QHS DEIDRA Administration Sodium Chloride 10 ml 10/21/18 22:00 10/22/18 10:43 Sodium Chloride Flush Syringe 10 Ml IV 10 ml BID DEIDRA Administration Sodium Chloride 10 ml 10/21/18 17:21 Sodium Chloride Flush Syringe 10 Ml IV PRN PRN LINE FLUSH Thiamine HCl 100 mg 10/22/18 10:00 10/22/18 10:40 Vitamin B-1 PO 100 mg QDAY DEIDRA Administration
[2018-10-22] MEDS: PRAVACHOL PO SCH (21:42)
[2018-10-23] MEDS: CARDIZEM PO SCH ×5 (00:05→23:26)
[2018-10-23] MEDS: LASIX IV SCH (05:51)
[2018-10-23] MEDS: TESSALON PERLES PO SCH ×3 (05:51→22:02)
[2018-10-23 06:11] LABS: Hematocrit 38.1 % (35.5-45.6); Hemoglobin 12.4 gm/dl (11.8-15.2); Mean Corpuscular HGB Conc 33 % (32-34); Mean Corpuscular Volume 93 fl (84-94); Platelet Count 253 K/mm3 (140-440); Red Blood Count 4.11 M/mm3 (3.65-5.03); Red Cell Distribution Width 14.7 % (13.2-15.2)
[2018-10-23 06:31] LABS: BUN/Creatinine Ratio 22; Blood Urea Nitrogen 13 mg/dL (9-20); Hemolysis Index 41
[2018-10-23] MEDS: PULMICORT IH SCH ×2 (07:53→20:13)
[2018-10-23] MEDS: DUONEB *Not for PRN Use IH SCH ×3 (07:54→20:13)
[2018-10-23] MEDS: BROVANA NEBU IH SCH ×2 (07:54→20:13)
[2018-10-23 08:03] LABS: Band Neutrophils # (Manual) 0.2 K/mm3; Basophils % (Manual) 0 % (0.0-1.8); Myelocytes # (Manual) 0.2 K/mm3; Total Cells Counted 100
[2018-10-23 08:04] LABS: Platelet Estimate Consistent w Auto; RBC Morphology Normal
--- NOTE | 2018-10-23 09:31 | Consultation ---
History of Present Illness Consult date: 10/23/18 Consult reason: congestive heart failure History of present illness: This is an 78 year old man who was just discharged from this hospital with PE, hypoxia and right pleural effusion. He returned less than 24hrs later with generalized weakness, admitted for further evaluation. Patient denies unusual shortness of breath, chest pain, palpitations and dizziness. Patient denies loss of consciousness. Patient reports his legs were weak and gave out on home. ECG is benign, sinus rhythm. Past History Past Medical History: diabetes, heart failure, hypertension, hyperlipidemia, pulmonary embolism Past Surgical History: Other (thoracentesis) Social history: single. denies: smoking, alcohol abuse, prescription drug abuse Family history: diabetes, hypertension Medications and Allergies Allergies Allergy/AdvReac Type Severity Reaction Status Date / Time No Known Allergies Allergy Verified 03/30/15 02:20 Home Medications Medication Instructions Recorded Confirmed Last Taken Type Pravastatin Sodium [Pravastatin] 10 mg PO QHS 03/29/15 10/21/18 10/08/18 History 10 mg Amlodipine Besylate/Benazepril 1 each PO QDAY #30 05/08/18 10/21/18 10/08/18 Rx [Lotrel 5-10 mg] Aspirin [Aspirin BABY CHEW TAB] 81 mg PO QDAY 10/09/18 10/21/18 Unknown History Glimepiride [Amaryl] 4 mg PO DAILY 10/09/18 10/21/18 Unknown History Omeprazole 20 mg PO QDAY 10/09/18 10/21/18 Unknown History Tiotropium [place] [Spiriva 1.25 mcg INHALATION DAILY 10/09/18 10/21/18 Unknown History Respimat] metFORMIN 500 mg PO BID 10/09/18 10/21/18 Unknown History ALBUTEROL NEB's [Proventil 0.083% 2.5 mg IH Q6HRT PRN #90 nebu 10/20/18 10/21/18 Unknown Rx NEBS] Apixaban [Eliquis] 5 mg PO Q12HR #60 tablet 10/20/18 10/21/18 Unknown Rx Benzonatate [Tessalon Perles] 100 mg PO Q8HR #14 capsule 10/20/18 10/21/18 Unknown Rx Fluticasone/Salmeterol [Advair 1 puff IH BID 30 Days disk.w.dev 10/20/18 10/21/18 Unknown Rx Diskus 250-50 mcg] Folic Acid [Folvite] 1 mg PO QDAY #30 tablet 10/20/18 10/21/18 Unknown Rx Furosemide [Lasix TAB] 40 mg PO QDAY #30 tablet 10/20/18 10/21/18 Unknown Rx Insulin NPH/Regular [NovoLIN 70/30] 14 unit SUB-Q BIDDIAB 30 Days 10/20/18 10/21/18 Unknown Rx units Insulin Regular, Human [HumuLIN R] 0 unit SQ AC #1 vial 10/20/18 10/21/18 Unknown Rx Ipratropium/Albuterol Sulfate 1 ampul IH TIDRT #90 ampul.neb 10/20/18 10/21/18 Unknown Rx [DUONEB *Not for PRN Use*] Metoprolol Xl [Metoprolol 25 mg PO QDAY #30 tablet 10/20/18 10/21/18 Unknown Rx SUCCINATE ER TAB] Pantoprazole [Protonix TAB] 40 mg PO QDAY #30 tablet 10/20/18 10/21/18 Unknown Rx Prednisone [predniSONE 10 mg 10 mg PO .TAPER #1 tab.ds.pk 10/20/18 10/21/18 Unknown Rx (6-Day Pack, 21 Tabs)] Thiamine [Vitamin B-1] 100 mg PO QDAY #30 tablet 10/20/18 10/21/18 Unknown Rx dilTIAZem [Cardizem] 60 mg PO Q6HR #180 tablet 10/20/18 10/21/18 Unknown Rx Active Meds: Active Medications Acetaminophen (Tylenol) 650 mg PO Q4H PRN PRN Reason: Pain MILD(1-3)/Fever >100.5/DUCKWORTH Albuterol (Proventil) 2.5 mg IH Q4HRT PRN PRN Reason: Shortness Of Breath Albuterol (Proventil) 2.5 mg IH Q6HRT PRN PRN Reason: Shortness Of Breath Albuterol/Ipratropium (Duoneb *Not For Prn Use*) 1 ampul IH TIDRT [facility] Last Admin: 10/23/18 07:54 Dose: Not Given Documented by: Amlodipine Besylate (Norvasc) 5 mg PO QDAY [facility] Last Admin: 10/22/18 10:41 Dose: 5 mg Documented by: Apixaban (Eliquis) 5 mg PO Q12HR [facility]; Protocol Last Admin: 10/22/18 21:42 Dose: 5 mg Documented by: Arformoterol Tartrate (Brovana Nebu) 15 mcg IH Q12HRT [facility] Last Admin: 10/23/18 07:54 Dose: 15 mcg Documented by: Aspirin (Baby Aspirin) 81 mg PO QDAY [facility] Last Admin: 10/22/18 10:40 Dose: 81 mg Documented by: Benzonatate (Tessalon Perles) 100 mg PO Q8HR [facility] Last Admin: 10/23/18 05:51 Dose: 100 mg Documented by: Budesonide (Pulmicort) 0.5 mg IH BIDRT [facility] Last Admin: 10/23/18 07:53 Dose: 0.5 mg Documented by: Dextrose (D50w (25gm) Syringe) 50 ml IV PRN PRN PRN Reason: Hypoglycemia Diltiazem HCl (Cardizem) 60 mg PO Q6HR [facility] Last Admin: 10/23/18 05:52 Dose: 60 mg Documented by: Folic Acid (Folvite) 1 mg PO QDAY [facility] Last Admin: 10/22/18 10:41 Dose: 1 mg Documented by: Furosemide (Lasix) 40 mg IV DAILY@0600 [facility] Last Admin: 10/23/18 05:51 Dose: 40 mg Documented by: Vancomycin HCl 1,500 mg/ (Sodium Chloride) 530 mls @ 333.333 mls/hr IV Q24H [facility] Last Admin: 10/22/18 10:41 Dose: 333.333 mls/hr Documented by: Insulin Human Isoph/Insulin Regular (Humulin 70/30) 14 unit SUB-Q BIDDIAB [facility] Last Admin: 10/22/18 19:59 Dose: Not Given Documented by: Insulin Human Regular (Humulin R) 0 units SUB-Q ACHS [facility]; Protocol Last Admin: 10/22/18 21:42 Dose: 2 units Documented by: Lisinopril (Zestril) 10 mg PO QDAY [facility] Last Admin: 10/22/18 10:41 Dose: 10 mg Documented by: Metoprolol Succinate (Toprol Xl) 25 mg PO QDAY [facility] Last Admin: 10/22/18 10:40 Dose: 25 mg Documented by: Ondansetron HCl (Zofran) 4 mg IV Q8H PRN PRN Reason: Nausea And Vomiting Pantoprazole Sodium (Protonix) 40 mg PO QDAY [facility] Last Admin: 10/22/18 10:40 Dose: 40 mg Documented by: Pravastatin Sodium (Pravachol) 10 mg PO QHS [facility] Last Admin: 10/22/18 21:42 Dose: 10 mg Documented by: Sodium Chloride (Sodium Chloride Flush Syringe 10 Ml) 10 ml IV BID [facility] Last Admin: 10/22/18 21:43 Dose: 10 ml Documented by: Sodium Chloride (Sodium Chloride Flush Syringe 10 Ml) 10 ml IV PRN PRN PRN Reason: LINE FLUSH Thiamine HCl (Vitamin B-1) 100 mg PO QDAY [facility] Last Admin: 10/22/18 10:40 Dose: 100 mg Documented by: Physical Examination Vital Signs Temp Pulse Resp BP Pulse Ox 97.9 F 84 14 121/63 100 10/21/18 12:50 10/21/18 12:50 10/21/18 12:50 10/21/18 12:50 10/21/18 12:50 General appearance: no acute distress HEENT: Positive: PERRL Cardiac: Positive: Reg Rate and Rhythm Lungs: Positive: Decreased Breath Sounds Neuro: Positive: Grossly Intact Results 10/23/18 05:13 10/23/18 05:13 CBC 10/23/18 Range/Units 05:13 WBC 18.5 H (4.5-11.0) K/mm3 RBC 4.11 (3.65-5.03) M/mm3 Hgb 12.4 (11.8-15.2) gm/dl Hct 38.1 (35.5-45.6) % Plt Count 253 (140-440) K/mm3 Comprehensive Metabolic Panel 10/23/18 Range/Units 05:13 Sodium 135 L (137-145) mmol/L Potassium 4.4 (3.6-5.0) mmol/L Chloride 93.8 L (98-107) mmol/L Carbon Dioxide 32 H (22-30) mmol/L BUN 13 (9-20) mg/dL Creatinine 0.6 L (0.8-1.5) mg/dL Glucose 149 H (75-100) mg/dL Calcium 8.0 L (8.4-10.2) mg/dL Assessment and Plan Generalized weakness Deconditioned Bilateral pulmonary emboli on eliquis for oral anticoagulation therapy Hypoxia on home oxygen Paroxysmal atrial flutter currently in sinus rhythm Cardiomyopathy, LVEF 45-50% 04/2018 MPI 04/2018 - small fixed inferior wall defect Chronic diastolic heart failure Chronic hyponatremia COPD Diabetes Echocardiogram 10/09/18 shows left ventricular ejection fraction 45%, mild mitral stenosis, moderate to severe regurgitant lesions of the mitral and tricuspid valves, severe pulmonary hypertension with a pulmonary artery systolic pressure of 69. Recommend: PT evaluation. Outpatient cardiac follow up for asymptomatic valvular heart lesions November 02 at 3pm. Otherwise, conservative cardiac management.
--- NOTE | 2018-10-23 10:28 | Progress Note ---
Assessment and Plan Assessment and plan: SIRS. Follow-up urine and blood cultures, serial lactic acid levels. Acute on chronic respiratory failure. Continue supplemental oxygen. Follow-up serial chest x-ray and ABGs. Etiology multifactorial secondary to COPD exacerbation, pulmonary hypertension and pulmonary embolism. Chronic diastolic heart failure. Patient with recent echocardiogram 10/09/18 which revealed EF 40-45% and mildly decreased systolic function. The mitral valve leaflets are severely thickened with restricted opening. Moderate to severe mitral regurgitation and tricuspid regurgitation. Cardiology reports as compensated. Severe pulmonary hypertension. Right ventricular systolic pressure is currently 69 mmHg. COPD exacerbation. Start steroids and breathing treatments. Pulmonary consultation. History of pulmonary embolus. Cont. Eliquis Nonsustained V. tach. Patient reportedly with an episode of 10 beat run of V. tach this morning. Cardiology following. Hyperlipidemia. Continue pravastatin. Hypertension. Resume antihypertensive medications. Diabetes mellitus type 2. History Interval history: no new issues overnight. Hospitalist Physical - Constitutional Vitals: Temp Pulse Resp BP Pulse Ox 97.8 F 80 18 126/68 96 10/23/18 07:56 10/23/18 05:52 10/23/18 07:56 10/23/18 07:56 10/23/18 03:36 General appearance: Present: no acute distress - EENT Eyes: Present: PERRL, EOM intact ENT: hearing intact, clear oral mucosa, dentition normal - Neck Neck: Present: supple, normal ROM - Respiratory Respiratory effort: normal Respiratory: bilateral: CTA - Cardiovascular Rhythm: regular Heart Sounds: Present: S1 & S2. Absent: gallop, rub - Extremities Extremities: no ischemia, No edema, Full ROM - Abdominal General gastrointestinal: soft, non-tender, non-distended, normal bowel sounds - Integumentary Integumentary: Present: clear, warm, dry - Neurologic Neurologic: CNII-XII intact, moves all extremities Results - Labs CBC & Chem 7: 10/23/18 05:13 10/23/18 05:13 Labs: Laboratory Last Values WBC 18.5 K/mm3 (4.5-11.0) H 10/23/18 05:13 RBC 4.11 M/mm3 (3.65-5.03) 10/23/18 05:13 Hgb 12.4 gm/dl (11.8-15.2) 10/23/18 05:13 Hct 38.1 % (35.5-45.6) 10/23/18 05:13 MCV 93 fl (84-94) 10/23/18 05:13 MCH 30 pg (28-32) 10/23/18 05:13 MCHC 33 % (32-34) 10/23/18 05:13 RDW 14.7 % (13.2-15.2) 10/23/18 05:13 Plt Count 253 K/mm3 (140-440) 10/23/18 05:13 Add Manual Diff Complete 10/23/18 05:13 Total Counted 100 10/23/18 05:13 Seg Neuts % (Manual) 78.0 % (40.0-70.0) H 10/23/18 05:13 1.0 % 10/23/18 05:13 9.0 % (13.4-35.0) L 10/23/18 05:13 Reactive Lymphs % (Man) 0 % 10/23/18 05:13 8.0 % (0.0-7.3) H 10/23/18 05:13 1.0 % (0.0-4.3) 10/23/18 05:13 0 % (0.0-1.8) 10/23/18 05:13 2.0 % 10/23/18 05:13 1.0 % 10/23/18 05:13 0 % 10/23/18 05:13 0 % 10/23/18 05:13 Nucleated RBC % 1.0 % (0.0-0.9) H 10/23/18 05:13 Seg Neutrophils # Man 14.4 K/mm3 (1.8-7.7) H 10/23/18 05:13 Band Neutrophils # 0.2 K/mm3 10/23/18 05:13 1.7 K/mm3 (1.2-5.4) 10/23/18 05:13 Abs React Lymphs (Man) 0.0 K/mm3 10/23/18 05:13 1.5 K/mm3 (0.0-0.8) H 10/23/18 05:13 0.2 K/mm3 (0.0-0.4) 10/23/18 05:13 0.0 K/mm3 (0.0-0.1) 10/23/18 05:13 0.4 K/mm3 10/23/18 05:13 0.2 K/mm3 10/23/18 05:13 0.0 K/mm3 10/23/18 05:13 Blast Cells # 0.0 K/mm3 10/23/18 05:13 WBC Morphology Not Reportable 10/23/18 05:13 Hypersegmented Neuts Not Reportable 10/23/18 05:13 Hyposegmented Neuts Not Reportable 10/23/18 05:13 Hypogranular Neuts Not Reportable 10/23/18 05:13 Not Reportable 10/23/18 05:13 Not Reportable 10/23/18 05:13 Not Reportable 10/23/18 05:13 Not Reportable 10/23/18 05:13 Not Reportable 10/23/18 05:13 Not Reportable 10/23/18 05:13 Consistent w auto 10/23/18 05:13 Not Reportable 10/23/18 05:13 Plt Clumps, EDTA Not Reportable 10/23/18 05:13 Not Reportable 10/23/18 05:13 Not Reportable 10/23/18 05:13 Not Reportable 10/23/18 05:13 Plt Morphology Comment Not Reportable 10/23/18 05:13 RBC Morphology Normal 10/23/18 05:13 Dimorphic RBCs Not Reportable 10/23/18 05:13 Not Reportable 10/23/18 05:13 Not Reportable 10/23/18 05:13 Not Reportable 10/23/18 05:13 Not Reportable 10/23/18 05:13 Not Reportable 10/23/18 05:13 Not Reportable 10/23/18 05:13 Not Reportable 10/23/18 05:13 Not Reportable 10/23/18 05:13 Not Reportable 10/23/18 05:13 Not Reportable 10/23/18 05:13 Not Reportable 10/23/18 05:13 Not Reportable 10/23/18 05:13 Not Reportable 10/23/18 05:13 Not Reportable 10/23/18 05:13 Not Reportable 10/23/18 05:13 Not Reportable 10/23/18 05:13 Not Reportable 10/23/18 05:13 Not Reportable 10/23/18 05:13 Not Reportable 10/23/18 05:13 Acanthocytes (Spur) Not Reportable 10/23/18 05:13 Rouleaux Not Reportable 10/23/18 05:13 Not Reportable 10/23/18 05:13 Not Reportable 10/23/18 05:13 Not Reportable 10/23/18 05:13 Not Reportable 10/23/18 05:13 Hem Pathologist Commnt No 10/23/18 05:13 PT 15.7 Sec. (12.2-14.9) H 10/21/18 14:02 INR 1.17 (0.87-1.13) H 10/21/18 14:02 APTT 24.5 Sec. (24.2-36.6) 10/21/18 14:02 POC ABG pH 7.455 (7.35-7.45) H 10/21/18 20:40 POC ABG pCO2 48.6 (35-45) H 10/21/18 20:40 POC ABG pO2 63 (80-105) L 10/21/18 20:40 POC ABG HCO3 34.2 (22-26 mml/L) 10/21/18 20:40 POC ABG Total CO2 36 (23-27mmol/L) 10/21/18 20:40 POC ABG O2 Sat 92 10/21/18 20:40 POC ABG Base Excess 10 ((-2) - (+3)mmol/L) 10/21/18 20:40 2 % 10/21/18 20:40 Sodium 135 mmol/L (137-145) L 10/23/18 05:13 Potassium 4.4 mmol/L (3.6-5.0) 10/23/18 05:13 Chloride 93.8 mmol/L (98-107) L 10/23/18 05:13 Carbon Dioxide 32 mmol/L (22-30) H 10/23/18 05:13 14 mmol/L 10/23/18 05:13 BUN 13 mg/dL (9-20) 10/23/18 05:13 0.6 mg/dL (0.8-1.5) L 10/23/18 05:13 Estimated GFR > 60 ml/min 10/23/18 05:13 22 % 10/23/18 05:13 Glucose 149 mg/dL (75-100) H 10/23/18 05:13 POC Glucose 153 (70-105) H 10/23/18 07:27 Lactic Acid 1.10 mmol/L (0.7-2.0) 10/22/18 05:47 Calcium 8.0 mg/dL (8.4-10.2) L 10/23/18 05:13 Magnesium 2.50 mg/dL (1.7-2.3) H 10/21/18 14:02 0.80 mg/dL (0.1-1.2) 10/21/18 14:02 AST 14 units/L (5-40) 10/21/18 14:02 ALT 29 units/L (7-56) 10/21/18 14:02 39 units/L (35-129) 10/21/18 14:02 116 units/L (55-170) 10/21/18 14:02 CK-MB (CK-2) 4.9 ng/mL (0.0-4.0) H 10/21/18 14:02 CK-MB (CK-2) Rel Index 4.2 (0-4) H 10/21/18 14:02 < 0.010 ng/mL (0.00-0.029) 10/21/18 14:02 NT-Pro-B Natriuret Pep 938.1 pg/mL (0-900) H 10/21/18 14:02 6.0 g/dL (6.3-8.2) L 10/21/18 14:02 3.7 g/dL (3.9-5) L 10/21/18 14:02 1.6 % 10/21/18 14:02 Yellow (Yellow) 10/21/18 16:45 Slightly-cloudy (Clear) 10/21/18 16:45 8.0 (5.0-7.0) H 10/21/18 16:45 Ur Specific [place] 1.014 (1.003-1.030) 10/21/18 16:45 <15 mg/dl mg/dL (Negative) 10/21/18 16:45 Neg mg/dL (Negative) 10/21/18 16:45 Neg mg/dL (Negative) 10/21/18 16:45 Neg (Negative) 10/21/18 16:45 Neg (Negative) 10/21/18 16:45 Neg (Negative) 10/21/18 16:45 4.0 mg/dL (<2.0) 10/21/18 16:45 Ur Leukocyte Esterase Neg (Negative) 10/21/18 16:45 1.0 /HPF (0.0-6.0) 10/21/18 16:45 1.0 /HPF (0.0-6.0) 10/21/18 16:45 U Epithel Cells (Auto) < 1.0 /HPF (0-13.0) 10/21/18 16:45 Active Medications - Current Medications Current Medications: Generic Name Dose Route Start Last Admin Trade Name Freq PRN Reason Stop Dose Admin Acetaminophen 650 mg 10/21/18 17:21 Tylenol PO Q4H PRN Pain MILD(1-3)/Fever >100.5/DUCKWORTH Albuterol 2.5 mg 10/21/18 17:21 Proventil IH Q4HRT PRN Shortness Of Breath Albuterol 2.5 mg 10/21/18 17:25 Proventil IH Q6HRT PRN Shortness Of Breath Albuterol/Ipratropium 1 ampul 10/21/18 20:00 10/23/18 07:54 Duoneb *Not For Prn Use* IH Not Given TIDRT [facility] Amlodipine Besylate 5 mg 10/22/18 10:00 10/22/18 10:41 Norvasc PO 5 mg QDAY [facility] Administration Apixaban 5 mg 10/21/18 22:00 10/22/18 21:42 Eliquis PO 5 mg Q12HR [facility] Administration Protocol Arformoterol Tartrate 15 mcg 10/21/18 20:00 10/23/18 07:54 Brovana Nebu IH 15 mcg Q12HRT [facility] Administration Aspirin 81 mg 10/22/18 10:00 10/22/18 10:40 Baby Aspirin PO 81 mg QDAY [facility] Administration Benzonatate 100 mg 10/21/18 22:00 10/23/18 05:51 Tessalon Perles PO 100 mg Q8HR [facility] Administration Budesonide 0.5 mg 10/21/18 20:00 10/23/18 07:53 Pulmicort IH 0.5 mg BIDRT [facility] Administration Dextrose 50 ml 10/21/18 17:28 D50w (25gm) Syringe IV PRN PRN Hypoglycemia Diltiazem HCl 60 mg 10/21/18 18:00 10/23/18 05:52 Cardizem PO 60 mg Q6HR [facility] Administration Folic Acid 1 mg 10/22/18 10:00 10/22/18 10:41 Folvite PO 1 mg QDAY [facility] Administration Furosemide 40 mg 10/22/18 06:00 10/23/18 05:51 Lasix IV 40 mg DAILY@0600 [facility] Administration Vancomycin HCl 1,500 mg/ 530 mls @ 333.333 mls/hr 10/22/18 08:00 10/22/18 10:41 Sodium Chloride IV 333.333 mls/hr Q24H [facility] Administration Insulin Human Isoph/Insulin Regular 14 unit 10/22/18 08:00 10/22/18 19:59 Humulin 70/30 SUB-Q Not Given BIDDIAB [facility] Insulin Human Regular 0 units 10/21/18 22:00 10/22/18 21:42 Humulin R SUB-Q 2 units ACHS [facility] Administration Protocol Lisinopril 10 mg 10/22/18 10:00 10/22/18 10:41 Zestril PO 10 mg QDAY [facility] Administration Metoprolol Succinate 25 mg 10/22/18 10:00 10/22/18 10:40 Toprol Xl PO 25 mg QDAY [facility] Administration Ondansetron HCl 4 mg 10/21/18 17:21 Zofran IV Q8H PRN Nausea And Vomiting Pantoprazole Sodium 40 mg 10/22/18 10:00 10/22/18 10:40 Protonix PO 40 mg QDAY [facility] Administration Pravastatin Sodium 10 mg 10/21/18 22:00 10/22/18 21:42 Pravachol PO 10 mg QHS [facility] Administration Sodium Chloride 10 ml 10/21/18 22:00 10/22/18 21:43 Sodium Chloride Flush Syringe 10 Ml IV 10 ml BID [facility] Administration Sodium Chloride 10 ml 10/21/18 17:21 Sodium Chloride Flush Syringe 10 Ml IV PRN PRN LINE FLUSH Thiamine HCl 100 mg 10/22/18 10:00 10/22/18 10:40 Vitamin B-1 PO 100 mg QDAY [facility] Administration
[2018-10-23] MEDS: ZESTRIL PO SCH (10:51)
[2018-10-23] MEDS: PROTONIX PO SCH (10:51)
[2018-10-23] MEDS: ELIQUIS PO SCH ×2 (10:51→22:02)
[2018-10-23] MEDS: TOPROL XL PO SCH (10:52)
[2018-10-23] MEDS: BABY ASPIRIN PO SCH (10:52)
[2018-10-23] MEDS: NORVASC PO SCH (10:52)
[2018-10-23] MEDS: VITAMIN B-1 PO SCH (10:52)
[2018-10-23] MEDS: FOLVITE PO SCH (10:52)
[2018-10-23] MEDS: SODIUM CHLORIDE FLUSH SYRINGE 10 ML IV SCH ×2 (10:57→22:03)
[2018-10-23] MEDS: VANCOMYCIN 1,500 MG in NACL 0.9% 500 ML 500 ML IV SCH (10:57)
[2018-10-23] MEDS: HumuLIN R SUB-Q SCH ×4 (10:58→22:03)
--- NOTE | 2018-10-23 13:07 | Consultation ---
History of Present Illness Consult date: 10/23/18 Requesting physician: STEFANI MONSALVE Reason for consult: COPD, other (Acute on Chronic Hypoxemic Respiratory Failure; Acute CHF exacerbation) History of present illness: PULMONARY/CCM CONSULT NOTE (Full dictation # [id number]) Please see dictated notes for full details Past History Past Medical History: diabetes, heart failure, hypertension, hyperlipidemia, pulmonary embolism Past Surgical History: Other (thoracentesis) Social history: single. denies: smoking, alcohol abuse, prescription drug abuse Family history: diabetes, hypertension Medications and Allergies Allergies Allergy/AdvReac Type Severity Reaction Status Date / Time No Known Allergies Allergy Verified 03/30/15 02:20 Home Medications Medication Instructions Recorded Confirmed Last Taken Type Pravastatin Sodium [Pravastatin] 10 mg PO QHS 03/29/15 10/21/18 10/08/18 History 10 mg Amlodipine Besylate/Benazepril 1 each PO QDAY #30 05/08/18 10/21/18 10/08/18 Rx [Lotrel 5-10 mg] Aspirin [Aspirin BABY CHEW TAB] 81 mg PO QDAY 10/09/18 10/21/18 Unknown History Glimepiride [Amaryl] 4 mg PO DAILY 10/09/18 10/21/18 Unknown History Omeprazole 20 mg PO QDAY 10/09/18 10/21/18 Unknown History Tiotropium [place] [Spiriva 1.25 mcg INHALATION DAILY 10/09/18 10/21/18 Unknown History Respimat] metFORMIN 500 mg PO BID 10/09/18 10/21/18 Unknown History ALBUTEROL NEB's [Proventil 0.083% 2.5 mg IH Q6HRT PRN #90 nebu 10/20/18 10/21/18 Unknown Rx NEBS] Apixaban [Eliquis] 5 mg PO Q12HR #60 tablet 10/20/18 10/21/18 Unknown Rx Benzonatate [Tessalon Perles] 100 mg PO Q8HR #14 capsule 10/20/18 10/21/18 Unknown Rx Fluticasone/Salmeterol [Advair 1 puff IH BID 30 Days disk.w.dev 10/20/18 Unknown Rx Diskus 250-50 mcg] Folic Acid [Folvite] 1 mg PO QDAY #30 tablet 10/20/18 10/21/18 Unknown Rx Furosemide [Lasix TAB] 40 mg PO QDAY #30 tablet 10/20/18 10/21/18 Unknown Rx Insulin NPH/Regular [NovoLIN 70/30] 14 unit SUB-Q BIDDIAB 30 Days 10/20/18 10/21/18 Unknown Rx units Insulin Regular, Human [HumuLIN R] 0 unit SQ AC #1 vial 10/20/18 10/21/18 Unknown Rx Ipratropium/Albuterol Sulfate 1 ampul IH TIDRT #90 ampul.neb 10/20/18 10/21/18 Unknown Rx [DUONEB *Not for PRN Use*] Metoprolol Xl [Metoprolol 25 mg PO QDAY #30 tablet 10/20/18 10/21/18 Unknown Rx SUCCINATE ER TAB] Pantoprazole [Protonix TAB] 40 mg PO QDAY #30 tablet 10/20/18 10/21/18 Unknown Rx Prednisone [predniSONE 10 mg 10 mg PO .TAPER #1 tab.ds.pk 10/20/18 10/21/18 Unknown Rx (6-Day Pack, 21 Tabs)] Thiamine [Vitamin B-1] 100 mg PO QDAY #30 tablet 10/20/18 10/21/18 Unknown Rx dilTIAZem [Cardizem] 60 mg PO Q6HR #180 tablet 10/20/18 10/21/18 Unknown Rx Active Meds: Active Medications Acetaminophen (Tylenol) 650 mg PO Q4H PRN PRN Reason: Pain MILD(1-3)/Fever >100.5/DUCKWORTH Albuterol (Proventil) 2.5 mg IH Q6HRT PRN PRN Reason: Shortness Of Breath Albuterol/Ipratropium (Duoneb *Not For Prn Use*) 1 ampul IH TIDRT [facility] Last Admin: 10/23/18 07:54 Dose: Not Given Documented by: Amlodipine Besylate (Norvasc) 5 mg PO QDAY [facility] Last Admin: 10/23/18 10:52 Dose: 5 mg Documented by: Apixaban (Eliquis) 5 mg PO Q12HR [facility]; Protocol Last Admin: 10/23/18 10:51 Dose: 5 mg Documented by: Arformoterol Tartrate (Brovana Nebu) 15 mcg IH Q12HRT [facility] Last Admin: 10/23/18 07:54 Dose: 15 mcg Documented by: Aspirin (Baby Aspirin) 81 mg PO QDAY [facility] Last Admin: 10/23/18 10:52 Dose: 81 mg Documented by: Benzonatate (Tessalon Perles) 100 mg PO Q8HR [facility] Last Admin: 10/23/18 05:51 Dose: 100 mg Documented by: Budesonide (Pulmicort) 0.5 mg IH BIDRT [facility] Last Admin: 10/23/18 07:53 Dose: 0.5 mg Documented by: Dextrose (D50w (25gm) Syringe) 50 ml IV PRN PRN PRN Reason: Hypoglycemia Diltiazem HCl (Cardizem) 60 mg PO Q6HR [facility] Last Admin: 10/23/18 11:57 Dose: 60 mg Documented by: Folic Acid (Folvite) 1 mg PO QDAY [facility] Last Admin: 10/23/18 10:52 Dose: 1 mg Documented by: Furosemide (Lasix) 40 mg IV DAILY@0600 [facility] Last Admin: 10/23/18 05:51 Dose: 40 mg Documented by: Vancomycin HCl 1,500 mg/ (Sodium Chloride) 530 mls @ 333.333 mls/hr IV Q24H [facility] Last Admin: 10/23/18 10:57 Dose: 333.333 mls/hr Documented by: Insulin Human Isoph/Insulin Regular (Humulin 70/30) 14 unit SUB-Q BIDDIAB [facility] Last Admin: 10/23/18 10:58 Dose: 14 unit Documented by: Insulin Human Regular (Humulin R) 0 units SUB-Q ACHS [facility]; Protocol Last Admin: 10/23/18 12:00 Dose: 3 units Documented by: Lisinopril (Zestril) 10 mg PO QDAY [facility] Last Admin: 10/23/18 10:51 Dose: 10 mg Documented by: Methylprednisolone Sodium Succinate (Solu-Medrol) 40 mg IV Q12HR [facility] Metoprolol Succinate (Toprol Xl) 25 mg PO QDAY [facility] Last Admin: 10/23/18 10:52 Dose: 25 mg Documented by: Ondansetron HCl (Zofran) 4 mg IV Q8H PRN PRN Reason: Nausea And Vomiting Pantoprazole Sodium (Protonix) 40 mg PO QDAY [facility] Last Admin: 10/23/18 10:51 Dose: 40 mg Documented by: Pravastatin Sodium (Pravachol) 10 mg PO QHS [facility] Last Admin: 10/22/18 21:42 Dose: 10 mg Documented by: Sodium Chloride (Sodium Chloride Flush Syringe 10 Ml) 10 ml IV BID [facility] Last Admin: 10/23/18 10:57 Dose: 10 ml Documented by: Sodium Chloride (Sodium Chloride Flush Syringe 10 Ml) 10 ml IV PRN PRN PRN Reason: LINE FLUSH Thiamine HCl (Vitamin B-1) 100 mg PO QDAY [facility] Last Admin: 10/23/18 10:52 Dose: 100 mg Documented by: Physical Examination Vital signs: Vital Signs Temp Pulse Resp BP Pulse Ox 97.9 F 84 14 121/63 100 10/21/18 12:50 10/21/18 12:50 10/21/18 12:50 10/21/18 12:50 10/21/18 12:50 Results - Laboratory Findings CBC and BMP: 10/23/18 05:13 10/23/18 05:13 ABG POC ABG pH 7.455 (7.35-7.45) H 10/21/18 20:40 POC ABG pCO2 48.6 (35-45) H 10/21/18 20:40 POC ABG pO2 63 (80-105) L 10/21/18 20:40 POC ABG HCO3 34.2 (22-26 mml/L) 10/21/18 20:40 POC ABG Total CO2 36 (23-27mmol/L) 10/21/18 20:40 POC ABG O2 Sat 92 10/21/18 20:40 PT/INR, D-dimer PT 15.7 Sec. (12.2-14.9) H 10/21/18 14:02 INR 1.17 (0.87-1.13) H 10/21/18 14:02 Abnormal lab findings: Abnormal Labs 10/21/18 10/21/18 10/21/18 14:02 14:02 14:02 WBC 27.3 H Seg Neuts % (Manual) 82.5 H Lymphocytes % (Manual) 10.0 L Monocytes % (Manual) 7.5 H Nucleated RBC % Seg Neutrophils # Man 22.5 H Monocytes # (Manual) 2.0 H PT 15.7 H INR 1.17 H POC ABG pH POC ABG pCO2 POC ABG pO2 Sodium 135 L Chloride 88.8 L Carbon Dioxide 37 H BUN 22 H Creatinine 0.7 L Glucose POC Glucose Lactic Acid Calcium Magnesium 2.50 H CK-MB (CK-2) 4.9 H CK-MB (CK-2) Rel Index 4.2 H NT-Pro-B Natriuret Pep 938.1 H Total Protein 6.0 L Albumin 3.7 L Urine pH 10/21/18 10/21/18 10/21/18 16:45 20:38 20:38 WBC Seg Neuts % (Manual) Lymphocytes % (Manual) Monocytes % (Manual) Nucleated RBC % Seg Neutrophils # Man Monocytes # (Manual) PT INR POC ABG pH POC ABG pCO2 POC ABG pO2 Sodium Chloride Carbon Dioxide BUN Creatinine Glucose POC Glucose Lactic Acid 2.50 H* 2.60 H* Calcium Magnesium CK-MB (CK-2) CK-MB (CK-2) Rel Index NT-Pro-B Natriuret Pep Total Protein Albumin Urine pH 8.0 H 10/21/18 10/21/18 10/21/18 20:40 22:48 22:54 WBC Seg Neuts % (Manual) Lymphocytes % (Manual) Monocytes % (Manual) Nucleated RBC % Seg Neutrophils # Man Monocytes # (Manual) PT INR POC ABG pH 7.455 H POC ABG pCO2 48.6 H POC ABG pO2 63 L Sodium Chloride Carbon Dioxide BUN Creatinine Glucose POC Glucose 270 H Lactic Acid 3.10 H* Calcium Magnesium CK-MB (CK-2) CK-MB (CK-2) Rel Index NT-Pro-B Natriuret Pep Total Protein Albumin Urine pH 10/22/18 10/22/18 10/22/18 02:20 02:20 02:20 WBC 20.4 H Seg Neuts % (Manual) 73.0 H Lymphocytes % (Manual) Monocytes % (Manual) 8.0 H Nucleated RBC % Seg Neutrophils # Man 14.9 H Monocytes # (Manual) 1.6 H PT INR POC ABG pH POC ABG pCO2 POC ABG pO2 Sodium 134 L Chloride 93.2 L Carbon Dioxide 34 H BUN Creatinine 0.6 L Glucose 259 H POC Glucose Lactic Acid 2.40 H* Calcium 7.8 L Magnesium CK-MB (CK-2) CK-MB (CK-2) Rel Index NT-Pro-B Natriuret Pep Total Protein Albumin Urine pH 10/22/18 10/22/18 10/22/18 11:05 16:05 21:08 WBC Seg Neuts % (Manual) Lymphocytes % (Manual) Monocytes % (Manual) Nucleated RBC % Seg Neutrophils # Man Monocytes # (Manual) PT INR POC ABG pH POC ABG pCO2 POC ABG pO2 Sodium Chloride Carbon Dioxide BUN Creatinine Glucose POC Glucose 191 H 267 H 169 H Lactic Acid Calcium Magnesium CK-MB (CK-2) CK-MB (CK-2) Rel Index NT-Pro-B Natriuret Pep Total Protein Albumin Urine pH 10/23/18 10/23/18 10/23/18 05:13 05:13 07:27 WBC 18.5 H Seg Neuts % (Manual) 78.0 H Lymphocytes % (Manual) 9.0 L Monocytes % (Manual) 8.0 H Nucleated RBC % 1.0 H Seg Neutrophils # Man 14.4 H Monocytes # (Manual) 1.5 H PT INR POC ABG pH POC ABG pCO2 POC ABG pO2 Sodium 135 L Chloride 93.8 L Carbon Dioxide 32 H BUN Creatinine 0.6 L Glucose 149 H POC Glucose 153 H Lactic Acid Calcium 8.0 L Magnesium CK-MB (CK-2) CK-MB (CK-2) Rel Index NT-Pro-B Natriuret Pep Total Protein Albumin Urine pH 10/23/18 11:45 WBC Seg Neuts % (Manual) Lymphocytes % (Manual) Monocytes % (Manual) Nucleated RBC % Seg Neutrophils # Man Monocytes # (Manual) PT INR POC ABG pH POC ABG pCO2 POC ABG pO2 Sodium Chloride Carbon Dioxide BUN Creatinine Glucose POC Glucose 244 H Lactic Acid Calcium Magnesium CK-MB (CK-2) CK-MB (CK-2) Rel Index NT-Pro-B Natriuret Pep Total Protein Albumin Urine pH
[2018-10-23] MEDS: PRAVACHOL PO SCH (22:02)
[2018-10-23] MEDS: LEVAQUIN PO SCH (22:02)
[2018-10-23] MEDS: SOLU-Medrol IV SCH (22:02)
[2018-10-24] MEDS: TESSALON PERLES PO SCH ×3 (05:43→22:19)
[2018-10-24] MEDS: CARDIZEM PO SCH ×5 (05:43→23:54)
[2018-10-24] MEDS: LASIX IV SCH (05:44)
--- NOTE | 2018-10-24 07:12 | Consultation ---
PULMONARY CONSULTATION NOTE CONSULTING PHYSICIAN: Fausto Salazar MD REASON FOR CONSULTATION: COPD. CHIEF COMPLAINT AND HISTORY OF PRESENT ILLNESS: As follows: The patient is an 78-year-old -[place] male with past medical history most significant for recent diagnosis of bilateral pulmonary emboli, on therapeutic anticoagulation with Eliquis as well as chronic home oxygen dependent respiratory failure, severe COPD, who describes came into the Emergency Room complaining of weakness and fatigue for about 24 hours. He admitted to not being compliant with his medication. He had gained really over 5 pounds in a 24-hour period. He was walking around his house without supplemental oxygen and experienced acute dizziness, weakness. He was unable to stand independently. He also admits to dyspnea on exertion and reduced exercise tolerance. It is unclear if he actually did pass out. Emergency medical services were notified. Upon arrival, they found look in any distress. In the Emergency Room, he was found essentially to be with an acute CHF exacerbation with hypoxemia and signs of the systemic inflammatory response syndrome. He was admitted after stabilization to the telemetry floor. We are asked to assist with management of his acute on chronic hypoxemic respiratory failure/COPD. When I stopped by to see him, he was resting in bed, he remained on supplemental oxygen. He denied any chest pains. He denied any palpitations. He denied any gross or streaky hemoptysis. He denies fevers or chills at home. He does have a remote 20+ pack year tobacco smoking history, but has not gone back to smoking tobacco. He also denies any new onset leg pain or swelling either unilaterally or bilaterally. That really is as much of the history of presentation as I have. PAST MEDICAL HISTORY: 1. Chronic obstructive lung disease, home oxygen dependent. 2. Congestive heart failure. 3. Hypertension. 4. Bilateral acute pulmonary emboli. 5. Hyperlipidemia. 6. Gastroesophageal reflux disease. 7. Obesity. PAST SURGICAL HISTORY: He has had a thoracentesis in the past. MEDICATIONS: He was on at the time I stopped by to see him were reviewed. Pertinent medications included the following: Tylenol 650 mg p.o. q. 4 hours p.r.n. mild pain or fevers, p.r.n. albuterol nebulizer treatments 2.5 mg q. 6 hours, DuoNeb was scheduled 1 inhalation 1 ampule t.i.d., Norvasc 5 mg p.o. daily, Eliquis 5 mg p.o. q. 12 hours, Brovana 15 mcg nebulized q. 12 hours, baby aspirin 81 mg p.o. daily, Tessalon Perles 100 mg p.o. q. 8 hours scheduled, Pulmicort 0.5 mg nebulized b.i.d., Cardizem 60 mg p.o. q. 6 hours, folic acid 1 mg p.o. daily, Lasix 40 mg IV daily, insulin 70/30 14 units subq b.i.d. as well as insulin via sliding scale, lisinopril 10 mg p.o. daily, Solu-Medrol 40 mg IV q. 12 hours, metoprolol 25 mg XL tablet p.o. once daily, Zofran 4 mg IV q. 8 hours p.r.n. nausea and vomiting, Protonix 40 mg p.o. and thiamine 100 mg p.o. daily and vancomycin 1.5 g IV daily. ALLERGIES: No known drug allergies. DIET: Obese gentleman, no significant weight loss or gain since I have last seen him. FAMILY AND SOCIAL HISTORY: Apparently lives in the community, has a remote 20+ pack year tobacco smoking history. Denies current alcohol, tobacco, or illicit drug use or abuse. He is single. Now, there is a family history of diabetes and hypertension. REVIEW OF SYSTEMS: He denies overt loss of consciousness. He denies any new onset seizures. No new onset focal weakness. No gross hematochezia or melena. No gross hematuria or dysuria. No hematemesis. No hemoptysis. He has a cough productive of clear phlegm. He denies polydipsia, polyuria. Denies heat or cold intolerance. Denies any new lumps, bumps, rashes on his body. Complete 13-system review of systems obtained. Pertinent positives and/or negatives as in body of history above, otherwise noncontributory. PHYSICAL EXAMINATION: VITAL SIGNS: At presentation in the Emergency Room and since he was afebrile, temperature was 97.9 degrees Fahrenheit with a pulse of 84, respiratory rate of 14, blood pressure 121/63, and oxygen sats 100%, inspired oxygen concentration at that time was not recorded. When I stopped by to see him, O2 sats were 98% on 2 liters nasal cannula. GENERAL: He is an elderly looking -[place]ian male. Normocephalic, atraumatic, talking to me in full sentences, but with mildly increased respiratory effort at rest. HEAD, EYES, EARS, NOSE AND THROAT: He is anicteric. No conjunctival erythema. He has some corneal opacification to the right eye. No gross jugular venous distention. Grossly, no palpable lymph nodes in the supraclavicular or submandibular lymph node chains. Oropharynx is moist. He has a Mallampati #3 oropharynx and a large neck circumference. LUNGS: Auscultation of both lung oakes revealed bilateral inspiratory rales, no active wheezing, but he does have a prolonged expiratory phase. HEART: Heart sounds 1 and 2 are heard. Regular rate and rhythm at the time of my evaluation without overt rubs or murmurs. ABDOMEN: Soft, full, bowel sounds are positive, nontender. No palpable hepatosplenomegaly. EXTREMITIES: With trace bipedal pitting edema, no significant digital clubbing or cyanosis. Pedal pulses palpable bilaterally and strong. NEUROLOGIC: Pupils are equal, round, about 3 mm, reactive to light. Extraocular muscle movements are intact. He moves all 4 extremities spontaneously. No spasticity, no fasciculations. SKIN: Normal turgor without overt cellulitis or rash. LABORATORY DATA: From my review are as follows: Admission white cell count was 27,300 with a hemoglobin of 13.0, hematocrit of 39.6 and platelet count of 278. No significant band forms were reported. INR was 1.17 at presentation. Arterial blood gas at presentation showed a pH of 7.46, pCO2 of 49, pO2 of 63 that was on 2 liters nasal cannula. Serum sodium 135, potassium 4.0, chloride 89, bicarbonate 37, BUN 22, creatinine 0.7, glucose was 75. Liver function tests essentially within normal limits. BNP was elevated at 938. Troponin was within normal limits. Lactic acid level was elevated at 3.1 at presentation. BUN is 13 today, creatinine 0.6. White count is 18,500. Two sets of blood cultures are no growth to date. A CT scan of his head was done at presentation as well as a chest x-ray. A CT of the brain was read as no acute intracranial findings. I have pulled up the chest x-ray. Chest x-ray does show borderline cardiomegaly, increased interstitial markings, particularly in the bases. I cannot rule out small right pleural effusion. The film is rotated to the left. Mild interstitial edema consistent with mild pulmonary edema. He may have some chronic scarring in the lung bases. ASSESSMENT: 1. Acute on chronic hypoxemic respiratory failure, possibly due to #2. 2. Acute congestive heart failure exacerbation, likely due to #3. 3. Medication noncompliance. 4. Acute chronic obstructive pulmonary disease exacerbation. 5. Bilateral pulmonary embolism, on anticoagulation. 6. Hyperlipidemia. 7. Hypertension. 8. Diabetes. 9. Leukocytosis at presentation. PLAN: It is unclear if we are truly dealing with just a straight on pulmonary edema or if there is an element of an occult pneumonia, the leukocytosis certainly is bothersome. However, he is not on any community-acquired pneumonia therapy at this time. I do think that the plan will be to begin him on empiric community-acquired pneumonia therapy. I will get a CRP level and use it to manager helpdesk, clinical decision making. His lactic acid level is now within normal limits. Sputum will be sent for Gram stain, cultures and sensitivities. I will put him on empiric Levaquin monotherapy. I am inclined to discontinue the vancomycin, especially after 72 hours of negative blood cultures of which nothing is going for now. He is appropriately on GI prophylaxis. He is fully anticoagulated, better medication compliance has been encouraged, continued tobacco abstinence has been encouraged. Bilevel positive airway pressure ventilation therapy will be overt danger to p.r.n. basis. Flu and pneumonia vaccination will be addressed per protocol. Thank you very much for the consult, Dr. Salazar. We will follow along. We will make further recommendations as the picture progresses/becomes clearer. JOB# [id number] MICHELA/CHARLES KNAPP
[2018-10-24] MEDS: HumuLIN R SUB-Q SCH ×4 (07:30→22:20)
[2018-10-24] MEDS: BROVANA NEBU IH SCH ×2 (08:36→20:44)
[2018-10-24] MEDS: PULMICORT IH SCH ×2 (08:36→20:44)
[2018-10-24] MEDS: DUONEB *Not for PRN Use IH SCH ×3 (08:36→20:44)
[2018-10-24] MEDS: FOLVITE PO SCH (10:17)
[2018-10-24] MEDS: ELIQUIS PO SCH ×2 (10:18→22:19)
[2018-10-24] MEDS: BABY ASPIRIN PO SCH (10:18)
[2018-10-24] MEDS: ZESTRIL PO SCH (10:18)
[2018-10-24] MEDS: NORVASC PO SCH (10:18)
[2018-10-24] MEDS: PROTONIX PO SCH (10:18)
[2018-10-24] MEDS: LEVAQUIN PO SCH (10:18)
[2018-10-24] MEDS: TOPROL XL PO SCH (10:20)
[2018-10-24] MEDS: SODIUM CHLORIDE FLUSH SYRINGE 10 ML IV SCH ×2 (10:23→22:20)
[2018-10-24] MEDS: SOLU-Medrol IV SCH ×2 (10:23→22:18)
[2018-10-24] MEDS: VITAMIN B-1 PO SCH (10:24)
[2018-10-24] MEDS: VANCOMYCIN 1,500 MG in NACL 0.9% 500 ML 500 ML IV SCH (10:24)
--- NOTE | 2018-10-24 10:59 | Progress Note ---
Assessment and Plan Assessment and plan: SIRS. Follow-up urine and blood cultures, serial lactic acid levels. Acute on chronic respiratory failure. Continue supplemental oxygen. Follow-up serial chest x-ray and ABGs. Etiology multifactorial secondary to COPD exacerbation, pulmonary hypertension and pulmonary embolism. Chronic diastolic heart failure. Patient with recent echocardiogram 10/09/18 which revealed EF 40-45% and mildly decreased systolic function. The mitral valve leaflets are severely thickened with restricted opening. Moderate to severe mitral regurgitation and tricuspid regurgitation. Cardiology reports as compensated. Severe pulmonary hypertension. Right ventricular systolic pressure is currently 69 mmHg. COPD exacerbation. Taper steroids and breathing treatments. Pulmonary following Leukocytosis. Etiology secondary to steroids. No evidence of infection. History of pulmonary embolus. Cont. Eliquis Nonsustained V. tach. Patient reportedly with an episode of 10 beat run of V. tach this morning. Cardiology following. Hyperlipidemia. Continue pravastatin. Hypertension. Resume antihypertensive medications. Diabetes mellitus type 2. Disposition. Anticipate discharge in a.m. with home health PT. History Interval history: no new issues overnight. Hospitalist Physical - Constitutional Vitals: Temp Pulse Resp BP Pulse Ox 97.7 F 86 18 138/76 100 10/24/18 07:50 10/24/18 10:20 10/24/18 08:41 10/24/18 10:20 10/24/18 08:35 General appearance: Present: no acute distress - EENT Eyes: Present: PERRL, EOM intact ENT: hearing intact, clear oral mucosa, dentition normal - Neck Neck: Present: supple, normal ROM - Respiratory Respiratory effort: normal Respiratory: bilateral: wheezing - Cardiovascular Rhythm: regular Heart Sounds: Present: S1 & S2. Absent: gallop, rub - Extremities Extremities: no ischemia, No edema, Full ROM - Abdominal General gastrointestinal: soft, non-tender, non-distended, normal bowel sounds - Integumentary Integumentary: Present: clear, warm, dry - Neurologic Neurologic: CNII-XII intact, moves all extremities Results - Labs CBC & Chem 7: 10/23/18 05:13 10/23/18 05:13 Labs: Laboratory Last Values WBC 18.5 K/mm3 (4.5-11.0) H 10/23/18 05:13 RBC 4.11 M/mm3 (3.65-5.03) 10/23/18 05:13 Hgb 12.4 gm/dl (11.8-15.2) 10/23/18 05:13 Hct 38.1 % (35.5-45.6) 10/23/18 05:13 MCV 93 fl (84-94) 10/23/18 05:13 MCH 30 pg (28-32) 10/23/18 05:13 MCHC 33 % (32-34) 10/23/18 05:13 RDW 14.7 % (13.2-15.2) 10/23/18 05:13 Plt Count 253 K/mm3 (140-440) 10/23/18 05:13 Add Manual Diff Complete 10/23/18 05:13 Total Counted 100 10/23/18 05:13 Seg Neuts % (Manual) 78.0 % (40.0-70.0) H 10/23/18 05:13 1.0 % 10/23/18 05:13 9.0 % (13.4-35.0) L 10/23/18 05:13 Reactive Lymphs % (Man) 0 % 10/23/18 05:13 8.0 % (0.0-7.3) H 10/23/18 05:13 1.0 % (0.0-4.3) 10/23/18 05:13 0 % (0.0-1.8) 10/23/18 05:13 2.0 % 10/23/18 05:13 1.0 % 10/23/18 05:13 0 % 10/23/18 05:13 0 % 10/23/18 05:13 Nucleated RBC % 1.0 % (0.0-0.9) H 10/23/18 05:13 Seg Neutrophils # Man 14.4 K/mm3 (1.8-7.7) H 10/23/18 05:13 Band Neutrophils # 0.2 K/mm3 10/23/18 05:13 1.7 K/mm3 (1.2-5.4) 10/23/18 05:13 Abs React Lymphs (Man) 0.0 K/mm3 10/23/18 05:13 1.5 K/mm3 (0.0-0.8) H 10/23/18 05:13 0.2 K/mm3 (0.0-0.4) 10/23/18 05:13 0.0 K/mm3 (0.0-0.1) 10/23/18 05:13 0.4 K/mm3 10/23/18 05:13 0.2 K/mm3 10/23/18 05:13 0.0 K/mm3 10/23/18 05:13 Blast Cells # 0.0 K/mm3 10/23/18 05:13 WBC Morphology Not Reportable 10/23/18 05:13 Hypersegmented Neuts Not Reportable 10/23/18 05:13 Hyposegmented Neuts Not Reportable 10/23/18 05:13 Hypogranular Neuts Not Reportable 10/23/18 05:13 Not Reportable 10/23/18 05:13 Not Reportable 10/23/18 05:13 Not Reportable 10/23/18 05:13 Not Reportable 10/23/18 05:13 Not Reportable 10/23/18 05:13 Not Reportable 10/23/18 05:13 Consistent w auto 10/23/18 05:13 Not Reportable 10/23/18 05:13 Plt Clumps, EDTA Not Reportable 10/23/18 05:13 Not Reportable 10/23/18 05:13 Not Reportable 10/23/18 05:13 Not Reportable 10/23/18 05:13 Plt Morphology Comment Not Reportable 10/23/18 05:13 RBC Morphology Normal 10/23/18 05:13 Dimorphic RBCs Not Reportable 10/23/18 05:13 Not Reportable 10/23/18 05:13 Not Reportable 10/23/18 05:13 Not Reportable 10/23/18 05:13 Not Reportable 10/23/18 05:13 Not Reportable 10/23/18 05:13 Not Reportable 10/23/18 05:13 Not Reportable 10/23/18 05:13 Not Reportable 10/23/18 05:13 Not Reportable 10/23/18 05:13 Not Reportable 10/23/18 05:13 Not Reportable 10/23/18 05:13 Not Reportable 10/23/18 05:13 Not Reportable 10/23/18 05:13 Not Reportable 10/23/18 05:13 Not Reportable 10/23/18 05:13 Not Reportable 10/23/18 05:13 Not Reportable 10/23/18 05:13 Not Reportable 10/23/18 05:13 Not Reportable 10/23/18 05:13 Acanthocytes (Spur) Not Reportable 10/23/18 05:13 Rouleaux Not Reportable 10/23/18 05:13 Not Reportable 10/23/18 05:13 Not Reportable 10/23/18 05:13 Not Reportable 10/23/18 05:13 Not Reportable 10/23/18 05:13 Hem Pathologist Commnt No 10/23/18 05:13 PT 15.7 Sec. (12.2-14.9) H 10/21/18 14:02 INR 1.17 (0.87-1.13) H 10/21/18 14:02 APTT 24.5 Sec. (24.2-36.6) 10/21/18 14:02 POC ABG pH 7.455 (7.35-7.45) H 10/21/18 20:40 POC ABG pCO2 48.6 (35-45) H 10/21/18 20:40 POC ABG pO2 63 (80-105) L 10/21/18 20:40 POC ABG HCO3 34.2 (22-26 mml/L) 10/21/18 20:40 POC ABG Total CO2 36 (23-27mmol/L) 10/21/18 20:40 POC ABG O2 Sat 92 10/21/18 20:40 POC ABG Base Excess 10 ((-2) - (+3)mmol/L) 10/21/18 20:40 2 % 10/21/18 20:40 Sodium 135 mmol/L (137-145) L 10/23/18 05:13 Potassium 4.4 mmol/L (3.6-5.0) 10/23/18 05:13 Chloride 93.8 mmol/L (98-107) L 10/23/18 05:13 Carbon Dioxide 32 mmol/L (22-30) H 10/23/18 05:13 14 mmol/L 10/23/18 05:13 BUN 13 mg/dL (9-20) 10/23/18 05:13 0.6 mg/dL (0.8-1.5) L 10/23/18 05:13 Estimated GFR > 60 ml/min 10/23/18 05:13 22 % 10/23/18 05:13 Glucose 149 mg/dL (75-100) H 10/23/18 05:13 POC Glucose 279 (70-105) H 10/24/18 10:18 Lactic Acid 1.10 mmol/L (0.7-2.0) 10/22/18 05:47 Calcium 8.0 mg/dL (8.4-10.2) L 10/23/18 05:13 Magnesium 2.50 mg/dL (1.7-2.3) H 10/21/18 14:02 0.80 mg/dL (0.1-1.2) 10/21/18 14:02 AST 14 units/L (5-40) 10/21/18 14:02 ALT 29 units/L (7-56) 10/21/18 14:02 39 units/L (35-129) 10/21/18 14:02 116 units/L (55-170) 10/21/18 14:02 CK-MB (CK-2) 4.9 ng/mL (0.0-4.0) H 10/21/18 14:02 CK-MB (CK-2) Rel Index 4.2 (0-4) H 10/21/18 14:02 < 0.010 ng/mL (0.00-0.029) 10/21/18 14:02 0.50 mg/dL (0.00-1.30) 10/23/18 19:51 NT-Pro-B Natriuret Pep 938.1 pg/mL (0-900) H 10/21/18 14:02 6.0 g/dL (6.3-8.2) L 10/21/18 14:02 3.7 g/dL (3.9-5) L 10/21/18 14:02 1.6 % 10/21/18 14:02 Yellow (Yellow) 10/21/18 16:45 Slightly-cloudy (Clear) 10/21/18 16:45 8.0 (5.0-7.0) H 10/21/18 16:45 Ur Specific [place] 1.014 (1.003-1.030) 10/21/18 16:45 <15 mg/dl mg/dL (Negative) 10/21/18 16:45 Neg mg/dL (Negative) 10/21/18 16:45 Neg mg/dL (Negative) 10/21/18 16:45 Neg (Negative) 10/21/18 16:45 Neg (Negative) 10/21/18 16:45 Neg (Negative) 10/21/18 16:45 4.0 mg/dL (<2.0) 10/21/18 16:45 Ur Leukocyte Esterase Neg (Negative) 10/21/18 16:45 1.0 /HPF (0.0-6.0) 10/21/18 16:45 1.0 /HPF (0.0-6.0) 10/21/18 16:45 U Epithel Cells (Auto) < 1.0 /HPF (0-13.0) 10/21/18 16:45 Active Medications - Current Medications Current Medications: Generic Name Dose Route Start Last Admin Trade Name Freq PRN Reason Stop Dose Admin Acetaminophen 650 mg 10/21/18 17:21 Tylenol PO Q4H PRN Pain MILD(1-3)/Fever >100.5/DUCKWORTH Albuterol 2.5 mg 10/21/18 17:25 Proventil IH Q6HRT PRN Shortness Of Breath Albuterol/Ipratropium 1 ampul 10/21/18 20:00 10/24/18 08:36 Duoneb *Not For Prn Use* IH 1 ampul TIDRT DEIDRA Administration Amlodipine Besylate 5 mg 10/22/18 10:00 10/24/18 10:18 Norvasc PO 5 mg QDAY DEIDRA Administration Apixaban 5 mg 10/21/18 22:00 10/24/18 10:18 Eliquis PO 5 mg Q12HR DEIDRA Administration Protocol Arformoterol Tartrate 15 mcg 10/21/18 20:00 10/24/18 08:36 Brovana Nebu IH 15 mcg Q12HRT DEIDRA Administration Aspirin 81 mg 10/22/18 10:00 10/24/18 10:18 Baby Aspirin PO 81 mg QDAY DEIDRA Administration Benzonatate 100 mg 10/21/18 22:00 10/24/18 05:43 Tessalon Perles PO 100 mg Q8HR DEIDRA Administration Budesonide 0.5 mg 10/21/18 20:00 10/24/18 08:36 Pulmicort IH 0.5 mg BIDRT DEIDRA Administration Dextrose 50 ml 10/21/18 17:28 D50w (25gm) Syringe IV PRN PRN Hypoglycemia Diltiazem HCl 60 mg 10/21/18 18:00 10/24/18 05:43 Cardizem PO 60 mg Q6HR DEIDRA Administration Folic Acid 1 mg 10/22/18 10:00 10/24/18 10:17 Folvite PO 1 mg QDAY DEIDRA Administration Furosemide 40 mg 10/22/18 06:00 10/24/18 05:44 Lasix IV 40 mg DAILY@0600 DEIDRA Administration Vancomycin HCl 1,500 mg/ 530 mls @ 333.333 mls/hr 10/22/18 08:00 10/24/18 10:24 Sodium Chloride IV 333.333 mls/hr Q24H DEIDRA Administration Insulin Human Isoph/Insulin Regular 14 unit 10/22/18 08:00 10/24/18 08:00 Humulin 70/30 SUB-Q 14 unit BIDDIAB DEIDRA Administration Insulin Human Regular 0 units 10/21/18 22:00 10/24/18 07:30 Humulin R SUB-Q 3 units ACHS DEIDRA Administration Protocol Levofloxacin 500 mg 10/23/18 20:00 10/24/18 10:18 Levaquin PO 500 mg Q24HR DEIDRA Administration Lisinopril 10 mg 10/22/18 10:00 10/24/18 10:18 Zestril PO 10 mg QDAY DEIDRA Administration Methylprednisolone Sodium Succinate 40 mg 10/23/18 22:00 10/24/18 10:23 Solu-Medrol IV 40 mg Q12HR DEIDRA Administration Metoprolol Succinate 25 mg 10/22/18 10:00 10/24/18 10:20 Toprol Xl PO 25 mg QDAY DEIDRA Administration Ondansetron HCl 4 mg 10/21/18 17:21 Zofran IV Q8H PRN Nausea And Vomiting Pantoprazole Sodium 40 mg 10/22/18 10:00 10/24/18 10:18 Protonix PO 40 mg QDAY DEIDRA Administration Pravastatin Sodium 10 mg 10/21/18 22:00 10/23/18 22:02 Pravachol PO 10 mg QHS DEIDRA Administration Sodium Chloride 10 ml 10/21/18 22:00 10/24/18 10:23 Sodium Chloride Flush Syringe 10 Ml IV Not Given BID DEIDRA Sodium Chloride 10 ml 10/21/18 17:21 Sodium Chloride Flush Syringe 10 Ml IV PRN PRN LINE FLUSH Thiamine HCl 100 mg 10/22/18 10:00 10/24/18 10:24 Vitamin B-1 PO 100 mg QDAY DEIDRA Administration
--- NOTE | 2018-10-24 14:22 | Progress Note ---
Assessment and Plan Acute on chronic hypoxemic respiratory failure, possibly due to #2. Acute congestive heart failure exacerbation, likely due to #3. Medication noncompliance. Acute chronic obstructive pulmonary disease exacerbation. Bilateral pulmonary embolism, on anticoagulation. Hyperlipidemia. Hypertension. Diabetes. Leukocytosis at presentation. - continue bronchodilators with pulmonary hygiene per RT - continue to wean supplemental oxygen to keep O2 sats 88-90% - optimize cardiac function per glove cuffer - complete empiric CAP AB's (de-escalate based on clinical and microbiologic data) - CRP unremarkable; stop Vancomycin after 72 hours of negative blood cultures - continue Anticoagulation, therapeutic (Monitor closely for bleeding complications) - PT/OT/Mobility protocol for dexterity and pressure ulcer prophylaxis - continue aspiration precautions - continue accuchecks with glycemic control per SSI for target BG < 180 mg/dl - continue GI prophylaxis - continue other care per attending / other consultants ... re-evaluate in am & prn Subjective Date of service: 10/24/18 Principal diagnosis: Ac on ch hypoxemic resp failure; Acute CHF exacerbation; AE-COPD; Gera. P.E. Interval history: Patient is seen today for: Ac on ch hypoxemic resp failure; Acute CHF exacerbation; Medication noncompliance; AE-COPD; Bilateral pulmonary embolism; Hyperlipidemia; HTN; DM II; Leukocytosis Seen and examined at bedside; 24hour events reviewed; nursing and respiratory care staff consulted; no adverse overnight events reported to me; resting peacefully in bed; denies acute chest pains or palpitations; less SOB; denies orthopnea; No N/V/F/C Objective Vital Signs - 12hr 10/24/18 10/24/18 10/24/18 03:28 05:43 07:50 Temperature 97.9 F 97.7 F Pulse Rate 89 90 85 Pulse Rate [ Anterior Bilateral Throughout] Respiratory 18 20 Rate Respiratory Rate [Anterior Bilateral Throughout] Blood Pressure 114/65 114/65 127/71 O2 Sat by Pulse 93 97 Oximetry 10/24/18 10/24/18 10/24/18 08:05 08:32 08:35 Temperature Pulse Rate Pulse Rate [ 86 Anterior Bilateral Throughout] Respiratory Rate Respiratory 20 Rate [Anterior Bilateral Throughout] Blood Pressure O2 Sat by Pulse 99 100 Oximetry 10/24/18 10/24/18 10/24/18 08:41 10:00 10:18 Temperature Pulse Rate 80 86 Pulse Rate [ 82 Anterior Bilateral Throughout] Respiratory Rate Respiratory 18 Rate [Anterior Bilateral Throughout] Blood Pressure 138/78 O2 Sat by Pulse Oximetry 10/24/18 10/24/18 10/24/18 10:20 11:50 12:00 Temperature 97.4 F L Pulse Rate 86 91 H 68 Pulse Rate [ Anterior Bilateral Throughout] Respiratory 18 Rate Respiratory Rate [Anterior Bilateral Throughout] Blood Pressure 138/76 118/62 131/74 O2 Sat by Pulse 99 Oximetry 10/24/18 13:13 Temperature Pulse Rate 84 Pulse Rate [ Anterior Bilateral Throughout] Respiratory Rate Respiratory Rate [Anterior Bilateral Throughout] Blood Pressure 137/84 O2 Sat by Pulse Oximetry Constitutional: alert, other (elderly looking AAM, normocephalic and with mildly increased respiratory effort at rest) Eyes: non-icteric ENT: oropharynx moist Neck: supple, no lymphadenopathy, other (no thyromegaly) Effort: mildly labored Ascultation: Bilateral: diminished breath sounds, rales (inspiratory) Percussion: Bilateral: not dull Cardiovascular: regular rate and rhythm, murmur noted (systolic) Gastrointestinal: normoactive bowel sounds, soft, non-tender, non-distended, other Integumentary: normal Extremities: no cyanosis, no edema, pulses normal Neurologic: normal mental status, non-focal exam (grossly), pupils equal and round, motor strength normal and Psychiatric: mood appropriate, affect normal CBC and BMP: 10/23/18 05:13 10/23/18 05:13 ABG, PT/INR, D-dimer: ABG POC ABG pH 7.455 (7.35-7.45) H 10/21/18 20:40 POC ABG pCO2 48.6 (35-45) H 10/21/18 20:40 POC ABG pO2 63 (80-105) L 10/21/18 20:40 POC ABG HCO3 34.2 (22-26 mml/L) 10/21/18 20:40 POC ABG Total CO2 36 (23-27mmol/L) 10/21/18 20:40 POC ABG O2 Sat 92 10/21/18 20:40 PT/INR, D-dimer PT 15.7 Sec. (12.2-14.9) H 10/21/18 14:02 INR 1.17 (0.87-1.13) H 10/21/18 14:02 Abnormal lab findings: Abnormal Labs 10/21/18 10/21/18 10/21/18 14:02 14:02 14:02 WBC 27.3 H Seg Neuts % (Manual) 82.5 H Lymphocytes % (Manual) 10.0 L Monocytes % (Manual) 7.5 H Nucleated RBC % Seg Neutrophils # Man 22.5 H Monocytes # (Manual) 2.0 H PT 15.7 H INR 1.17 H POC ABG pH POC ABG pCO2 POC ABG pO2 Sodium 135 L Chloride 88.8 L Carbon Dioxide 37 H BUN 22 H Creatinine 0.7 L Glucose POC Glucose Lactic Acid Calcium Magnesium 2.50 H CK-MB (CK-2) 4.9 H CK-MB (CK-2) Rel Index 4.2 H NT-Pro-B Natriuret Pep 938.1 H Total Protein 6.0 L Albumin 3.7 L Urine pH 10/21/18 10/21/18 10/21/18 16:45 20:38 20:38 WBC Seg Neuts % (Manual) Lymphocytes % (Manual) Monocytes % (Manual) Nucleated RBC % Seg Neutrophils # Man Monocytes # (Manual) PT INR POC ABG pH POC ABG pCO2 POC ABG pO2 Sodium Chloride Carbon Dioxide BUN Creatinine Glucose POC Glucose Lactic Acid 2.50 H* 2.60 H* Calcium Magnesium CK-MB (CK-2) CK-MB (CK-2) Rel Index NT-Pro-B Natriuret Pep Total Protein Albumin Urine pH 8.0 H 10/21/18 10/21/18 10/21/18 20:40 22:48 22:54 WBC Seg Neuts % (Manual) Lymphocytes % (Manual) Monocytes % (Manual) Nucleated RBC % Seg Neutrophils # Man Monocytes # (Manual) PT INR POC ABG pH 7.455 H POC ABG pCO2 48.6 H POC ABG pO2 63 L Sodium Chloride Carbon Dioxide BUN Creatinine Glucose POC Glucose 270 H Lactic Acid 3.10 H* Calcium Magnesium CK-MB (CK-2) CK-MB (CK-2) Rel Index NT-Pro-B Natriuret Pep Total Protein Albumin Urine pH 10/22/18 10/22/18 10/22/18 02:20 02:20 02:20 WBC 20.4 H Seg Neuts % (Manual) 73.0 H Lymphocytes % (Manual) Monocytes % (Manual) 8.0 H Nucleated RBC % Seg Neutrophils # Man 14.9 H Monocytes # (Manual) 1.6 H PT INR POC ABG pH POC ABG pCO2 POC ABG pO2 Sodium 134 L Chloride 93.2 L Carbon Dioxide 34 H BUN Creatinine 0.6 L Glucose 259 H POC Glucose Lactic Acid 2.40 H* Calcium 7.8 L Magnesium CK-MB (CK-2) CK-MB (CK-2) Rel Index NT-Pro-B Natriuret Pep Total Protein Albumin Urine pH 10/22/18 10/22/18 10/22/18 11:05 16:05 21:08 WBC Seg Neuts % (Manual) Lymphocytes % (Manual) Monocytes % (Manual) Nucleated RBC % Seg Neutrophils # Man Monocytes # (Manual) PT INR POC ABG pH POC ABG pCO2 POC ABG pO2 Sodium Chloride Carbon Dioxide BUN Creatinine Glucose POC Glucose 191 H 267 H 169 H Lactic Acid Calcium Magnesium CK-MB (CK-2) CK-MB (CK-2) Rel Index NT-Pro-B Natriuret Pep Total Protein Albumin Urine pH 10/23/18 10/23/18 10/23/18 05:13 05:13 07:27 WBC 18.5 H Seg Neuts % (Manual) 78.0 H Lymphocytes % (Manual) 9.0 L Monocytes % (Manual) 8.0 H Nucleated RBC % 1.0 H Seg Neutrophils # Man 14.4 H Monocytes # (Manual) 1.5 H PT INR POC ABG pH POC ABG pCO2 POC ABG pO2 Sodium 135 L Chloride 93.8 L Carbon Dioxide 32 H BUN Creatinine 0.6 L Glucose 149 H POC Glucose 153 H Lactic Acid Calcium 8.0 L Magnesium CK-MB (CK-2) CK-MB (CK-2) Rel Index NT-Pro-B Natriuret Pep Total Protein Albumin Urine pH 10/23/18 10/23/18 10/23/18 11:45 16:25 20:57 WBC Seg Neuts % (Manual) Lymphocytes % (Manual) Monocytes % (Manual) Nucleated RBC % Seg Neutrophils # Man Monocytes # (Manual) PT INR POC ABG pH POC ABG pCO2 POC ABG pO2 Sodium Chloride Carbon Dioxide BUN Creatinine Glucose POC Glucose 244 H 149 H 201 H Lactic Acid Calcium Magnesium CK-MB (CK-2) CK-MB (CK-2) Rel Index NT-Pro-B Natriuret Pep Total Protein Albumin Urine pH 10/24/18 10/24/18 10/24/18 07:31 10:18 11:29 WBC Seg Neuts % (Manual) Lymphocytes % (Manual) Monocytes % (Manual) Nucleated RBC % Seg Neutrophils # Man Monocytes # (Manual) PT INR POC ABG pH POC ABG pCO2 POC ABG pO2 Sodium Chloride Carbon Dioxide BUN Creatinine Glucose POC Glucose 234 H 279 H 325 H Lactic Acid Calcium Magnesium CK-MB (CK-2) CK-MB (CK-2) Rel Index NT-Pro-B Natriuret Pep Total Protein Albumin Urine pH Chest x-ray: image reviewed Allied health notes reviewed: nursing
--- NOTE | 2018-10-24 14:56 | Progress Note ---
Subjective Date of service: 10/24/18 Principal diagnosis: Ac on ch hypoxemic resp failure; Acute CHF exacerbation; AE-COPD; Gera. P.E. Interval history: Follow-up, no cardiac change, no new recommendations. Patient sustained a fall at home without syncope. He states that his legs felt weak and his knees gave out. Patient denies chest pain or shortness of breath Exam is showing equal BS bilaterally and no signs of volume overload Patient will benefit from aggressive physical therapy. His fall is secondary to severe physical deconditioning from prolonged recent hospitalization There is no evidence of acute heart failure. His severe MR and severe TR would be dealt with as an outpatient Objective Vital Signs Temp Pulse Pulse Resp Resp BP Pulse Ox 10/24/18 13:13 84 137/84 10/24/18 12:00 68 131/74 10/24/18 11:50 97.4 F L 91 H 18 118/62 99 10/24/18 10:20 86 138/76 10/24/18 10:18 86 138/78 10/24/18 10:00 80 10/24/18 08:41 82 18 10/24/18 08:35 100 10/24/18 08:32 86 20 10/24/18 08:05 99 10/24/18 07:50 97.7 F 85 20 127/71 97 10/24/18 05:43 90 114/65 10/24/18 03:28 97.9 F 89 18 114/65 93 10/24/18 02:00 82 10/23/18 23:26 80 129/65 10/23/18 23:00 98 10/23/18 22:56 98.1 F 82 18 129/65 98 10/23/18 22:00 100 10/23/18 20:26 88 20 10/23/18 20:13 86 20 10/23/18 20:00 98.0 F 83 20 123/55 96 10/23/18 17:12 82 119/56 - Physical Examination HEENT: Positive: PERRL Neck: Positive: neck supple Cardiac: Positive: Reg Rate and Rhythm, S1/S2, Systolic Murmur Lungs: Positive: Normal Exam Neuro: Positive: Grossly Intact
[2018-10-24] MEDS: PRAVACHOL PO SCH (22:18)
[2018-10-25] MEDS: TESSALON PERLES PO SCH ×2 (05:04→13:40)
[2018-10-25] MEDS: CARDIZEM PO SCH ×2 (05:04→13:00)
[2018-10-25] MEDS: LASIX IV SCH (05:04)
--- NOTE | 2018-10-25 08:46 | Discharge Summary ---
Providers - Providers Date of Admission: 10/21/18 17:21 Date of discharge: 10/25/18 Attending physician: STEFANI MONSALVE 10/22/18 13:18 Consult to Cardiology [CONS] Routine Consulting Provider: CALI TABOR Reason For Exam: heart failure 10/23/18 10:27 Consult to Physician [CONS] Routine Comment: Consulting Provider: ANDREW [place] Physician Instructions: Reason For Exam: copd 10/23/18 10:29 Physical Therapy Evaluation and Treat [CONS] Routine Comment: Reason For Exam: deconditioning Primary care physician: DARRELL QUINONES MD Hospitalization Reason for admission: fall, copd exac Condition: Fair Hospital course: 78 YO Male with HTN, Systolic CHF, DM, HLD, Bilateral Pulmonary Embolism on Therapeutic Anticoagulation with Eliquis, Chronic Respiratory Failure on Home Oxygen presents to ED for evaluation. Pt reports that he has experienced weakness and fatigue over the past [address] [employer] [employer]. The patient was initially admitted with findings consistent with CHF decompensation. The patient had mild CHF seen on chest x-ray and a mildly elevated BNP. Patient's heart failure quickly resolved. Cardiology sawc the patient in consultation and felt that the patient had no cardiac changes and no new recommendations. Apparently, patient sustained a fall at home without syncope. Patient stated that his legs felt weak and his niece simply gave out. Cardiology felt that the patient would benefit from aggressive physical therapy. His fall was felt to be secondary to severe deconditioning. There was no evidence of acute heart failure by the time cardiology saw the patient in consultation. Patient also had mild COPD exacerbation seen by pulmonary consultation. Patient was treated with steroids and bronchodilators. Patient had leukocytosis on admission but was taking prednisone taper. Patient had no evidence of infectious etiology. PT recommended home physical therapy. Patient already has a walker and other necessary equipment at home. Dedicated discharge time 32 minutes. Disposition: - TO HOME OR SELFCARE Time spent for discharge: 32 - Discharge Diagnoses (1) Acute and chronic respiratory failure Status: Acute (2) CHF (congestive heart failure) Status: Acute Qualifiers: Heart failure type: systolic Heart failure chronicity: acute on chronic Qualified Code(s): I50.23 - Acute on chronic systolic (congestive) heart failure (3) Diabetes Status: Acute (4) Near syncope Status: Acute (5) COPD exacerbation Status: Acute Core Measure Documentation - Palliative Care Palliative Care/ Comfort Measures: Not Applicable - Core Measures Any of the following diagnoses?: none Exam - Constitutional Vitals: Temp Pulse Resp BP Pulse Ox 97.6 F 86 16 126/69 98 10/25/18 03:45 10/25/18 03:45 10/25/18 03:45 10/25/18 03:45 10/25/18 03:45 General appearance: Present: no acute distress, well-nourished - EENT Eyes: Present: PERRL ENT: hearing intact, clear oral mucosa - Neck Neck: Present: supple, normal ROM - Respiratory Respiratory effort: normal Respiratory: bilateral: CTA - Cardiovascular Heart Sounds: Present: S1 & S2. Absent: rub, click - Extremities Extremities: pulses symmetrical, No edema Peripheral Pulses: within normal limits - Abdominal General gastrointestinal: Present: soft, non-tender, non-distended, normal bowel sounds Male genitourinary: Present: normal - Integumentary Integumentary: Present: clear, warm, dry - Musculoskeletal Musculoskeletal: gait normal, strength equal bilaterally - Psychiatric Psychiatric: appropriate mood/affect, intact judgment & insight - Neurologic Neurologic: CNII-XII intact, moves all extremities Plan Activity: advance as tolerated Weight Bearing Status: Weight Bear as Tolerated Diet: low fat, low cholesterol, low salt Special Instructions: restrict fluid intake to (1 L) Follow up with: PRIMARY CAREMD [Referring] - 3-5 Days CALI TABOR MD [Staff Physician] - 7 Days LEA GUERRERO MD [Staff Physician] - 7 Days Prescriptions: Fluticasone/Salmeterol [Advair Diskus 250-50 mcg] 1 puff IH BID 30 Days disk.w.dev Glimepiride [Amaryl] 4 mg PO DAILY #30 tablet Aspirin [Aspirin BABY CHEW TAB] 81 mg PO QDAY #30 tab.chew dilTIAZem [Cardizem] 60 mg PO Q6HR #180 tablet Ipratropium/Albuterol Sulfate [DUONEB *Not for PRN Use*] 1 ampul IH TIDRT #90 ampul.neb Apixaban [Eliquis] 5 mg PO Q12HR #60 tablet Folic Acid [Folvite] 1 mg PO QDAY #30 tablet Furosemide [Lasix TAB] 40 mg PO QDAY #30 tablet Amlodipine Besylate/Benazepril [Lotrel 5-10 mg] 1 each PO QDAY #30 capsule metFORMIN 500 mg PO BID #60 Metoprolol Xl [Metoprolol SUCCINATE ER TAB] 25 mg PO QDAY #30 tablet Insulin NPH/Regular [NovoLIN 70/30] 14 unit SUB-Q BIDDIAB 30 Days units Pravastatin Sodium [Pravastatin] 10 mg PO QHS #30 tablet Prednisone [predniSONE 10 mg (6-Day Pack, 21 Tabs)] 10 mg PO .TAPER #1 tab.ds.pk Pantoprazole [Protonix TAB] 40 mg PO QDAY #30 tablet ALBUTEROL NEB's [Proventil 0.083% NEBS] 2.5 mg IH Q6HRT PRN #90 nebu PRN Reason: Shortness Of Breath Tiotropium [place] [Spiriva Respimat] 1.25 mcg INHALATION DAILY 30 Days mist.inhal Benzonatate [Tessalon Perles] 100 mg PO Q8HR #14 capsule Thiamine [Vitamin B-1] 100 mg PO QDAY #30 tablet
[2018-10-25] MEDS: HumuLIN R SUB-Q SCH ×3 (09:07→17:29)
[2018-10-25] MEDS: LEVAQUIN PO SCH (09:09)
[2018-10-25] MEDS: NORVASC PO SCH (09:09)
[2018-10-25] MEDS: VITAMIN B-1 PO SCH (09:10)
[2018-10-25] MEDS: PROTONIX PO SCH (09:10)
[2018-10-25] MEDS: TOPROL XL PO SCH (09:10)
[2018-10-25] MEDS: ELIQUIS PO SCH (09:10)
[2018-10-25] MEDS: SOLU-Medrol IV SCH (09:11)
[2018-10-25] MEDS: BABY ASPIRIN PO SCH (09:11)
[2018-10-25] MEDS: FOLVITE PO SCH (09:15)
[2018-10-25] MEDS: VANCOMYCIN 1,500 MG in NACL 0.9% 500 ML 500 ML IV SCH (09:29)
[2018-10-25] MEDS: BROVANA NEBU IH SCH (09:36)
[2018-10-25] MEDS: DUONEB *Not for PRN Use IH SCH ×2 (09:36→13:54)
[2018-10-25] MEDS: PULMICORT IH SCH (09:36)
[2018-10-25] MEDS: SODIUM CHLORIDE FLUSH SYRINGE 10 ML IV SCH (10:00)
[2018-10-25] MEDS: ZESTRIL PO SCH (10:33)
[2018-10-25 13:21] VITALS: BP 140/64
--- NOTE | 2018-10-25 16:02 | Progress Note ---
Assessment and Plan Acute on chronic hypoxemic respiratory failure, possibly due to #2. Acute congestive heart failure exacerbation, likely due to #3. Medication noncompliance. Acute chronic obstructive pulmonary disease exacerbation. Bilateral pulmonary embolism, on anticoagulation. Hyperlipidemia. Hypertension. Diabetes. Leukocytosis at presentation. - continue bronchodilators with pulmonary hygiene per RT - continue to wean supplemental oxygen to keep O2 sats 88-90% - optimize cardiac function per sheet rock sander - complete empiric CAP AB's (de-escalate based on clinical and microbiologic data) - CRP unremarkable; stop Vancomycin after 72 hours of negative blood cultures - continue Anticoagulation, therapeutic (Monitor closely for bleeding complications) - PT/OT/Mobility protocol for dexterity and pressure ulcer prophylaxis - continue aspiration precautions - continue accuchecks with glycemic control per SSI for target BG < 180 mg/dl - continue GI prophylaxis - continue other care per attending / other consultants ... re-evaluate in am & prn Subjective Date of service: 10/25/18 Principal diagnosis: Ac on ch hypoxemic resp failure; Acute CHF exacerbation; AE-COPD; Gera. P.E. Interval history: Patient is seen today for: Ac on ch hypoxemic resp failure; Acute CHF exacerbation; Medication noncompliance; AE-COPD; Bilateral pulmonary embolism; Hyperlipidemia; HTN; DM II; Leukocytosis Seen and examined at bedside; 24hour events reviewed; nursing and respiratory care staff consulted; no adverse overnight events reported to me; resting peacefully in bed; doing better; denies acute chest pains or SOB; no N/V/F/C Objective Vital Signs - 12hr 10/25/18 10/25/18 10/25/18 07:52 08:00 09:09 Temperature 97.3 F L Pulse Rate 89 89 Pulse Rate [ 85 Anterior Bilateral Throughout] Respiratory 16 Rate Respiratory 17 Rate [Anterior Bilateral Throughout] Blood Pressure 121/64 O2 Sat by Pulse 100 Oximetry 10/25/18 10/25/18 10/25/18 09:10 09:37 10:00 Temperature Pulse Rate 89 89 Pulse Rate [ 84 Anterior Bilateral Throughout] Respiratory Rate Respiratory 19 Rate [Anterior Bilateral Throughout] Blood Pressure O2 Sat by Pulse 98 Oximetry 10/25/18 10/25/18 13:00 13:02 Temperature 98.2 F Pulse Rate 83 98 H Pulse Rate [ Anterior Bilateral Throughout] Respiratory 16 Rate Respiratory Rate [Anterior Bilateral Throughout] Blood Pressure 140/64 O2 Sat by Pulse 98 Oximetry Constitutional: alert, other (elderly looking AAM, normocephalic and with mildly increased respiratory effort at rest) Eyes: non-icteric ENT: oropharynx moist Neck: supple, no lymphadenopathy, other (no thyromegaly) Effort: mildly labored Ascultation: Bilateral: diminished breath sounds, rales (inspiratory) Percussion: Bilateral: not dull Cardiovascular: regular rate and rhythm, murmur noted (systolic) Gastrointestinal: normoactive bowel sounds, soft, non-tender, non-distended, other Integumentary: normal Extremities: no cyanosis, no edema, pulses normal Neurologic: normal mental status, non-focal exam (grossly), pupils equal and round, motor strength normal and Psychiatric: mood appropriate, affect normal CBC and BMP: 10/23/18 05:13 10/23/18 05:13 ABG, PT/INR, D-dimer: ABG POC ABG pH 7.455 (7.35-7.45) H 10/21/18 20:40 POC ABG pCO2 48.6 (35-45) H 10/21/18 20:40 POC ABG pO2 63 (80-105) L 10/21/18 20:40 POC ABG HCO3 34.2 (22-26 mml/L) 10/21/18 20:40 POC ABG Total CO2 36 (23-27mmol/L) 10/21/18 20:40 POC ABG O2 Sat 92 10/21/18 20:40 PT/INR, D-dimer PT 15.7 Sec. (12.2-14.9) H 10/21/18 14:02 INR 1.17 (0.87-1.13) H 10/21/18 14:02 Abnormal lab findings: Abnormal Labs 10/21/18 10/21/18 10/21/18 14:02 14:02 14:02 WBC 27.3 H Seg Neuts % (Manual) 82.5 H Lymphocytes % (Manual) 10.0 L Monocytes % (Manual) 7.5 H Nucleated RBC % Seg Neutrophils # Man 22.5 H Monocytes # (Manual) 2.0 H PT 15.7 H INR 1.17 H POC ABG pH POC ABG pCO2 POC ABG pO2 Sodium 135 L Chloride 88.8 L Carbon Dioxide 37 H BUN 22 H Creatinine 0.7 L Glucose POC Glucose Lactic Acid Calcium Magnesium 2.50 H CK-MB (CK-2) 4.9 H CK-MB (CK-2) Rel Index 4.2 H NT-Pro-B Natriuret Pep 938.1 H Total Protein 6.0 L Albumin 3.7 L Urine pH 10/21/18 10/21/18 10/21/18 16:45 20:38 20:38 WBC Seg Neuts % (Manual) Lymphocytes % (Manual) Monocytes % (Manual) Nucleated RBC % Seg Neutrophils # Man Monocytes # (Manual) PT INR POC ABG pH POC ABG pCO2 POC ABG pO2 Sodium Chloride Carbon Dioxide BUN Creatinine Glucose POC Glucose Lactic Acid 2.50 H* 2.60 H* Calcium Magnesium CK-MB (CK-2) CK-MB (CK-2) Rel Index NT-Pro-B Natriuret Pep Total Protein Albumin Urine pH 8.0 H 10/21/18 10/21/18 10/21/18 20:40 22:48 22:54 WBC Seg Neuts % (Manual) Lymphocytes % (Manual) Monocytes % (Manual) Nucleated RBC % Seg Neutrophils # Man Monocytes # (Manual) PT INR POC ABG pH 7.455 H POC ABG pCO2 48.6 H POC ABG pO2 63 L Sodium Chloride Carbon Dioxide BUN Creatinine Glucose POC Glucose 270 H Lactic Acid 3.10 H* Calcium Magnesium CK-MB (CK-2) CK-MB (CK-2) Rel Index NT-Pro-B Natriuret Pep Total Protein Albumin Urine pH 10/22/18 10/22/18 10/22/18 02:20 02:20 02:20 WBC 20.4 H Seg Neuts % (Manual) 73.0 H Lymphocytes % (Manual) Monocytes % (Manual) 8.0 H Nucleated RBC % Seg Neutrophils # Man 14.9 H Monocytes # (Manual) 1.6 H PT INR POC ABG pH POC ABG pCO2 POC ABG pO2 Sodium 134 L Chloride 93.2 L Carbon Dioxide 34 H BUN Creatinine 0.6 L Glucose 259 H POC Glucose Lactic Acid 2.40 H* Calcium 7.8 L Magnesium CK-MB (CK-2) CK-MB (CK-2) Rel Index NT-Pro-B Natriuret Pep Total Protein Albumin Urine pH 10/22/18 10/22/18 10/22/18 11:05 16:05 21:08 WBC Seg Neuts % (Manual) Lymphocytes % (Manual) Monocytes % (Manual) Nucleated RBC % Seg Neutrophils # Man Monocytes # (Manual) PT INR POC ABG pH POC ABG pCO2 POC ABG pO2 Sodium Chloride Carbon Dioxide BUN Creatinine Glucose POC Glucose 191 H 267 H 169 H Lactic Acid Calcium Magnesium CK-MB (CK-2) CK-MB (CK-2) Rel Index NT-Pro-B Natriuret Pep Total Protein Albumin Urine pH 10/23/18 10/23/18 10/23/18 05:13 05:13 07:27 WBC 18.5 H Seg Neuts % (Manual) 78.0 H Lymphocytes % (Manual) 9.0 L Monocytes % (Manual) 8.0 H Nucleated RBC % 1.0 H Seg Neutrophils # Man 14.4 H Monocytes # (Manual) 1.5 H PT INR POC ABG pH POC ABG pCO2 POC ABG pO2 Sodium 135 L Chloride 93.8 L Carbon Dioxide 32 H BUN Creatinine 0.6 L Glucose 149 H POC Glucose 153 H Lactic Acid Calcium 8.0 L Magnesium CK-MB (CK-2) CK-MB (CK-2) Rel Index NT-Pro-B Natriuret Pep Total Protein Albumin Urine pH 10/23/18 10/23/18 10/23/18 11:45 16:25 20:57 WBC Seg Neuts % (Manual) Lymphocytes % (Manual) Monocytes % (Manual) Nucleated RBC % Seg Neutrophils # Man Monocytes # (Manual) PT INR POC ABG pH POC ABG pCO2 POC ABG pO2 Sodium Chloride Carbon Dioxide BUN Creatinine Glucose POC Glucose 244 H 149 H 201 H Lactic Acid Calcium Magnesium CK-MB (CK-2) CK-MB (CK-2) Rel Index NT-Pro-B Natriuret Pep Total Protein Albumin Urine pH 10/24/18 10/24/18 10/24/18 07:31 10:18 11:29 WBC Seg Neuts % (Manual) Lymphocytes % (Manual) Monocytes % (Manual) Nucleated RBC % Seg Neutrophils # Man Monocytes # (Manual) PT INR POC ABG pH POC ABG pCO2 POC ABG pO2 Sodium Chloride Carbon Dioxide BUN Creatinine Glucose POC Glucose 234 H 279 H 325 H Lactic Acid Calcium Magnesium CK-MB (CK-2) CK-MB (CK-2) Rel Index NT-Pro-B Natriuret Pep Total Protein Albumin Urine pH 10/24/18 10/24/18 10/25/18 15:54 20:52 07:43 WBC Seg Neuts % (Manual) Lymphocytes % (Manual) Monocytes % (Manual) Nucleated RBC % Seg Neutrophils # Man Monocytes # (Manual) PT INR POC ABG pH POC ABG pCO2 POC ABG pO2 Sodium Chloride Carbon Dioxide BUN Creatinine Glucose POC Glucose 285 H 219 H 298 H Lactic Acid Calcium Magnesium CK-MB (CK-2) CK-MB (CK-2) Rel Index NT-Pro-B Natriuret Pep Total Protein Albumin Urine pH 10/25/18 11:45 WBC Seg Neuts % (Manual) Lymphocytes % (Manual) Monocytes % (Manual) Nucleated RBC % Seg Neutrophils # Man Monocytes # (Manual) PT INR POC ABG pH POC ABG pCO2 POC ABG pO2 Sodium Chloride Carbon Dioxide BUN Creatinine Glucose POC Glucose 324 H Lactic Acid Calcium Magnesium CK-MB (CK-2) CK-MB (CK-2) Rel Index NT-Pro-B Natriuret Pep Total Protein Albumin Urine pH Allied health notes reviewed: nursing
== END 2018-10-25 19:45 | disposition home health service (06) | DRG 291 ==
LOC: ED 12:31 → 4A 17:21
PROVIDERS: ADMIT Internal Medicine; ATTEND Hospitalist
PROC: 4A033R1 Measurement of Arterial Saturation, Peripheral, Percutaneous Approach (ICD-10-PCS; principal; 2018-10-21)
DX: I11.0 Hypertensive heart disease with heart failure (principal); J96.21 Acute and chronic respiratory failure with hypoxia; R65.10 Systemic inflammatory response syndrome (SIRS) of non-infectious origin without acute organ dysfunction; E87.1 Hypo-osmolality and hyponatremia; J44.1 Chronic obstructive pulmonary disease with (acute) exacerbation; I47.2 Ventricular tachycardia; I50.23 Acute on chronic systolic (congestive) heart failure; I42.9 Cardiomyopathy, unspecified; E78.00 Pure hypercholesterolemia, unspecified; E83.41 Hypermagnesemia; I27.20 Pulmonary hypertension, unspecified; I20.8 Other forms of angina pectoris; E78.2 Mixed hyperlipidemia; W18.39XA Other fall on same level, initial encounter; E11.9 Type 2 diabetes mellitus without complications; E78.5 Hyperlipidemia, unspecified; Z79.01 Long term (current) use of anticoagulants; Z99.81 Dependence on supplemental oxygen; Z86.711 Personal history of pulmonary embolism; Z83.3 Family history of diabetes mellitus; Z82.49 Family history of ischemic heart disease and other diseases of the circulatory system; Z79.82 Long term (current) use of aspirin; Z79.899 Other long term (current) drug therapy; Z79.51 Long term (current) use of inhaled steroids; Z79.4 Long term (current) use of insulin; Z91.14 Patient's other noncompliance with medication regimen; Y93.89 Activity, other specified; Y92.098 Other place in other non-institutional residence as the place of occurrence of the external cause; Y99.8 Other external cause status
CPT/HCPCS: 36415; 36600; 70450; 71045; 80048; 80053; 81001; 82140; 82550; 82553; 82803; 82962; 83735; 83880; 84484; 85007; 85025; 85610; 85730; 86140; 87040; 87205; 93005; 93010; 94640; 94760; 96374; 99285; G0378; A9270-GY; J1815; J1940; J2920; J3370; J7040

== ENCOUNTER 2018-11-09 12:16 | Outpatient (CLI) | payer MEDICARE ==
--- NOTE | 2018-11-09 13:01 | XRay Report ---
CHEST TWO VIEWS: 11/09/18 12:16:00 CLINICAL: Followup pleural effusion. COMPARISON: 10/21/18 FINDINGS: The right costophrenic angle has cleared since the last exam. The heart is upper limits of normal in size. Mild central vascular congestion.However, the pulmonary vessels are more distinct than on the last exam. Bibasal reticular interstitial opacities but decreased opacity compared to the last exam. No pulmonary consolidation.The bones and soft tissues are unremarkable. IMPRESSION: Interval improvement in CHF with resolution of small right pleural effusion. Mild residual interstitial pulmonary edema versus chronic interstitial changes.
== END 2018-11-09 12:17 | disposition home or self-care (01) ==
LOC: XRAY 12:16
PROVIDERS: ATTEND Internal Medicine
DX: J90 Pleural effusion, not elsewhere classified (principal); I11.0 Hypertensive heart disease with heart failure; I50.9 Heart failure, unspecified; E78.00 Pure hypercholesterolemia, unspecified
CPT/HCPCS: 71046

== ENCOUNTER 2018-12-08 08:43 | Inpatient (IN) | payer MEDICARE ==
--- NOTE | 2018-12-08 09:12 | Emergency Department Report ---
ED Shortness of Breath HPI - General Chief Complaint: Dyspnea/Respdistress Stated Complaint: CHF/SOB Time Seen by Provider: 12/08/18 09:08 Source: patient Mode of arrival: Wheelchair Limitations: Physical Limitation, Other - History of Present Illness Initial Comments: Assessment 78-year-old gentleman with a history of diabetes, COPD, CHF. He was discharged from the hospital ([facility]) yesterday. His disorder states that she did not feel that he was ready for discharge because he still had respiratory: See. Patient did give himself a nap today but is still short of breath. He states he's been coughing green sputum. He did not report fever. He is a limited historian but able to answer direct questions. He is not complaining of chest pain. It appears he was treated for CHF and COPD during the last hospitalization but not pneumonia. Family states he was hospitalized for one week. 09/2018 Discharge Summary: 78 YO Male with HTN, Systolic CHF, DM, HLD, Bilateral Pulmonary Embolism on Therapeutic Anticoagulation with Eliquis, Chronic Respiratory Failure on Home Oxygen presents to ED for evaluation. 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 The patient was initially admitted with findings consistent with CHF decompensation. The patient had mild CHF seen on chest x-ray and a mildly elevated BNP. Patient's heart failure quickly resolved. Cardiology sawc the patient in consultation and felt that the patient had no cardiac changes and no new recommendations. Apparently, patient sustained a fall at home without syncope. Patient stated that his legs felt weak and his niece simply gave out. Cardiology felt that the patient would benefit from aggressive physical therapy. His fall was felt to be secondary to severe deconditioning. There was no evidence of acute heart failure by the time cardiology saw the patient in consultation. Patient also had mild COPD exace rbation seen by pulmonary consultation. Patient was treated with steroids and bronchodilators. Patient had leukocytosis on admission but was taking prednisone taper. Patient had no evidence of infectious etiology. PT recommended home physical therapy. Patient already has a walker and other nece ssary equipment at home. Dedicated discharge time 32 minutes. Disposition: - TO HOME OR SELFCARE Time spent for discharge: 32 - Discharge Diagnoses (1) Acute and chronic respiratory failure Status: Acute (2) CHF (congestive heart failure) Status: Acute Qualifiers: Heart failure type: systolic Heart failure chronicity: acute on chronic Qualified Code(s): I50.23 - Acute on chronic systolic (congestive) heart failure (3) Diabetes Status: Acute (4) Near syncope Status: Acute (5) COPD exacerbation Status: Acute MD Complaint: shortness of breath -: week(s) Severity: moderate Known History Of: COPD, congestive heart failure Context: recent URI (productive sputum) - Related Data Home Medications Medication Instructions Recorded Confirmed Last Taken ALBUTEROL Inhaler (OR & NICU) 2 puff IH Q4H PRN 12/08/18 12/08/18 Unknown [ProAir HFA Inhaler] Amiodarone [Cordarone 200 MG TAB] 200 mg PO DAILY 12/08/18 12/08/18 Unknown Ascorbic Acid [Vitamin C] 500 mg PO QDAY 12/08/18 12/08/18 Unknown Aspirin EC 81 mg PO QDAY 12/08/18 12/08/18 Unknown Iron Fum,Ps/Folic/Bcomp,C No.9 1 each PO DAILY 12/08/18 12/08/18 Unknown [Integra Plus Capsule] Metoprolol [Lopressor] 50 mg PO BID 12/08/18 12/08/18 Unknown Previous Rx's Medication Instructions Recorded Last Taken Type Apixaban [Eliquis] 5 mg PO Q12HR #60 tablet 10/25/18 Unknown Rx Glimepiride [Amaryl] 4 mg PO DAILY #30 tablet 10/25/18 Unknown Rx Allergies Allergy/AdvReac Type Severity Reaction Status Date / Time No Known Allergies Allergy Verified 12/08/18 08:49 ED Review of Systems ROS: Stated complaint: CHF/SOB Other details as noted in HPI Constitutional: denies: chills, fever Eyes: denies: eye pain, eye discharge, vision change ENT: as per HPI. denies: ear pain, throat pain Respiratory: cough, shortness of breath, wheezing Cardiovascular: denies: chest pain, palpitations Endocrine: no symptoms reported Gastrointestinal: denies: abdominal pain, nausea, diarrhea Genitourinary: denies: urgency, dysuria Musculoskeletal: denies: back pain, joint swelling, arthralgia Skin: denies: rash, lesions Neurological: denies: headache, weakness, paresthesias Psychiatric: denies: anxiety, depression Hematological/Lymphatic: denies: easy bleeding, easy bruising ED Past Medical Hx - Past Medical History Hx Hypertension: Yes Hx Congestive Heart Failure: Yes Hx Diabetes: Yes Hx HIV: No Additional medical history: HIGH CHOLESTEROL - Surgical History Additional Surgical History: Thoracentesis - Social History Smoking Status: Former Smoker - Medications Home Medications: Home Medications Medication Instructions Recorded Confirmed Last Taken Type Apixaban [Eliquis] 5 mg PO Q12HR #60 tablet 10/25/18 12/08/18 Unknown Rx Glimepiride [Amaryl] 4 mg PO DAILY #30 tablet 10/25/18 12/08/18 Unknown Rx ALBUTEROL Inhaler (OR & NICU) 2 puff IH Q4H PRN 12/08/18 12/08/18 Unknown History [ProAir HFA Inhaler] Amiodarone [Cordarone 200 MG TAB] 200 mg PO DAILY 12/08/18 12/08/18 Unknown History Ascorbic Acid [Vitamin C] 500 mg PO QDAY 12/08/18 12/08/18 Unknown History Aspirin EC 81 mg PO QDAY 12/08/18 12/08/18 Unknown History Iron Fum,Ps/Folic/Bcomp,C No.9 1 each PO DAILY 12/08/18 12/08/18 Unknown History [Integra Plus Capsule] Metoprolol [Lopressor] 50 mg PO BID 12/08/18 12/08/18 Unknown History ED Physical Exam - General Limitations: Physical Limitation, Other General appearance: alert, in no apparent distress - Head Head exam: Present: atraumatic, normocephalic - Eye Eye exam: Present: normal appearance. Absent: scleral icterus - ENT ENT exam: Present: mucous membranes moist - Neck Neck exam: Present: normal inspection. Absent: meningismus - Respiratory Respiratory exam: Present: accessory muscle use (mild increased work of breathing noted), decreased breath sounds. Absent: normal lung sounds bilaterally, respiratory distress - Cardiovascular Cardiovascular Exam: Present: regular rate, normal rhythm. Absent: systolic murmur, diastolic murmur, rubs, gallop - GI/Abdominal GI/Abdominal exam: Present: soft, normal bowel sounds. Absent: distended, tenderness, guarding, rebound, rigid - Rectal Rectal exam: Present: deferred - Extremities Exam Extremities exam: Present: normal inspection. Absent: calf tenderness - Back Exam Back exam: Present: normal inspection - Neurological Exam Neurological exam: Present: alert, oriented X3, CN II-XII intact. Absent: motor sensory deficit - Psychiatric Psychiatric exam: Present: normal affect, normal mood - Skin Skin exam: Present: warm, dry, intact, normal color. Absent: rash ED Course Vital Signs 12/08/18 12/08/18 08:52 09:07 Temperature 98.8 F 97.8 F Pulse Rate 97 H 98 H Respiratory 22 30 H Rate Blood Pressure 142/77 Blood Pressure 125/70 142/77 [Left] O2 Sat by Pulse 92 96 Oximetry - Reevaluation(s) Reevaluation #1: She was given a neb. He was cultured. I have ordered meropenem, Levaquin and vancomycin for hospital acquired pneumonia. 12/08/18 10:45 Reevaluation #2: Initially improved with a neb. Sats are stable. His work of breathing is normal. While we can't exclude decompensated heart failure, I favor the diagnosis of Erika here radiographically. Do not think the patient is septic. I do not think he is a candidate for fluid resuscitation. Discussed with Dr. Arizmnedi. He will obtain appropriate consultations. Patient is stable for admission to the [facility] unit on telemetry and pulse oximetry. 12/08/18 12:27 ED Medical Decision Making - Lab Data Result diagrams: 12/08/18 09:31 12/08/18 09:31 Critical care attestation.: If time is entered above; I have spent that time in minutes in the direct care of this critically ill patient, excluding procedure time. ED Disposition Clinical Impression: Bilateral pneumonia Qualifiers: Pneumonia type: due to unspecified organism Lung location: unspecified part of lung Qualified Code(s): J18.9 - Pneumonia, unspecified organism Cardiomyopathy Qualifiers: Cardiomyopathy type: unspecified Qualified Code(s): I42.9 - Cardiomyopathy, unspecified COPD (chronic obstructive pulmonary disease) Qualifiers: COPD type: unspecified COPD Qualified Code(s): J44.9 - Chronic obstructive pulmonary disease, unspecified Disposition: OP ADMIT IP TO THIS HOSP Is pt being admited?: Yes Does the pt Need Aspirin: Yes Condition: Stable Instructions: Bacterial Pneumonia (ED), Chronic Obstructive Pulmonary Disease (ED) Referrals: PRIMARY CARE, [Referring] - 3-5 Days Time of Disposition: 12:31
--- NOTE | 2018-12-08 09:40 | XRay Report ---
CHEST 1 VIEW INDICATION: Dyspnea. COMPARISON: 11/09/2018 FINDINGS: Support devices: None. Heart: Within normal limits. Lungs/Pleura: Bilateral infiltrates or pulmonary edema have developed since the previous exam. I favo r pulmonary edema. Trace pleural effusions are likely present bilaterally. No pneumothorax. Additional findings: None. IMPRESSION: Bilateral pulmonary edema/infiltrates and small bilateral pleural effusions have developed since 10/24. Signer Name: Mj Dhaliwal Jr, MD Signed: 12/08/2018 9:36 AM Workstation Name: [id number]
[2018-12-08] MEDS ORDERED: DUONEB *Not for PRN Use IH ONE (09:49)
[2018-12-08 09:59] LABS: Basophils % (Auto) 0.2 % (0.0-1.8); Hematocrit 29.1 % (35.5-45.6); Hemoglobin 9.7 gm/dl (11.8-15.2); Lymphocytes # (Auto) 0.9 K/mm3 (1.2-5.4); Lymphocytes % (Auto) 5.4 % (13.4-35.0); Mean Corpuscular HGB Conc 33 % (32-34); Mean Corpuscular Volume 88 fl (84-94); Monocytes # (Auto) 0.9 K/mm3 (0.0-0.8); Monocytes % (Auto) 5.5 % (0.0-7.3); Platelet Count 360 K/mm3 (140-440); Red Blood Count 3.32 M/mm3 (3.65-5.03); Red Cell Distribution Width 15.6 % (13.2-15.2)
[2018-12-08 10:11] LABS: INR 1.6 (0.87-1.13)
[2018-12-08 10:12] LABS: Partial Thromboplastin Time 34.5 Sec. (24.2-36.6)
[2018-12-08 10:23] LABS: BUN/Creatinine Ratio 14; Blood Urea Nitrogen 10 mg/dL (9-20); Calcium 9.2 mg/dL (8.4-10.2); Hemolysis Index 0
[2018-12-08 10:27] LABS: Creatine Kinase MB 4.1 ng/mL (0.0-4.0)
[2018-12-08 10:28] LABS: Alanine Aminotransferase 18 units/L (7-56); Albumin 3.7 g/dL (3.9-5)
[2018-12-08 10:35] LABS: Bilirubin,Direct < 0.2 mg/dL (0-0.2)
[2018-12-08] MEDS ORDERED: VANCOMYCIN PHARMACY TO DOSE IV SCH (11:00)
[2018-12-08] MEDS ORDERED: MERREM/NS 500 MG/50 ML 500 MG/50 ML BAG IV ONE (12:00)
[2018-12-08] MEDS ORDERED: LASIX IV ONE (12:29)
[2018-12-08] MEDS ORDERED: ASPIRIN PO ONE (12:31)
[2018-12-08] MEDS ORDERED: VANCOMYCIN 1,750 MG in NACL 0.9% 500 ML 500 ML IV ONE (13:00)
[2018-12-08] MEDS ORDERED: ASPIRIN ONE (13:35)
[2018-12-08 17:35] LABS: Bilirubin,Urine NEG (Negative); Blood,Urine NEG (Negative); Mucus,Urine FEW /HPF; Protein,Urine <15 mg/dL mg/dL (Negative); Urobilinogen,Urine < 2.0 mg/dL (<2.0)
[2018-12-08 18:35] LABS: Color,Urine Dark Yellow (Yellow)
[2018-12-08] MEDS ORDERED: PROAIR IH PRN (19:59)
[2018-12-08] MEDS ORDERED: IRON FUM PS PO SCH (20:00)
[2018-12-08] MEDS ORDERED: [UNRECOGNIZED DRUG - OTHER] PO SCH (20:00)
[2018-12-08] MEDS ORDERED: FOLIC PO SCH (20:00)
--- NOTE | 2018-12-08 20:07 | Event Note ---
Date: 12/08/18 Please see dictated history and physical in the reports Bilateral pneumonia COPD exacerbation CHF Arrhythmias Type 2 diabetes
[2018-12-08] MEDS ORDERED: ZOFRAN IV PRN (20:16)
[2018-12-08] MEDS ORDERED: TYLENOL PO PRN (20:16)
[2018-12-08] MEDS ORDERED: DILAUDID IV PRN (20:16)
[2018-12-08] MEDS ORDERED: PROVENTIL IH PRN (20:19)
[2018-12-08] MEDS ORDERED: MERREM/NS 500 MG/50 ML 500 MG/50 ML BAG IV SCH (21:00)
--- NOTE | 2018-12-08 21:03 | History and Physical Report ---
CHIEF COMPLAINT: 1. Shortness of breath for 1 week. 2. Cough for 1 week. HISTORY OF PRESENT ILLNESS: An 78-year-old -Polish male with history of CHF, COPD, and type 2 diabetes, was recently discharged from [facility] after being treated for COPD exacerbation yesterday. As per daughter, the patient was discharged prematurely and wanted to appeal the discharge. The patient comes in for cough and shortness of breath and coughing green sputum. No fever. Shortness of breath is present. Exertional shortness of breath was also present. No fever or chills. No exacerbating or precipitating factors. Discharge summary from September was reviewed from this hospital. The patient was admitted for acute on chronic respiratory failure and severe debility. The patient was treated for COPD exacerbation. The patient was discharged on nebulizers and home physical therapy. The patient already has a walker. In summary, the patient had COPD exacerbation and severe debility. This is a discharge summary from 09/2018. Past medical history as mentioned, significant for atrial fibrillation which is paroxysmal, anemia, hypertension, COPD and type 2 diabetes. CURRENT MEDICATIONS: Metoprolol 50 mg twice a day, ascorbic acid 500 mg p.o. daily, albuterol inhaler 2 puffs q.4 hours p.r.n., iron tablets one tablet each daily, aspirin enteric coated 81 mg once a day, amiodarone 200 mg once a day, glimepiride 4 mg once a day and Eliquis 5 mg p.o. q.12 hours. PAST MEDICAL HISTORY: As mentioned, hypertension, diabetes, anemia, arrhythmias, anticoagulation. PAST SURGICAL HISTORY: Thoracentesis. SOCIAL HISTORY: Former smoker. FAMILY HISTORY: Hypertension. REVIEW OF SYSTEMS: Significant for cough productive of green sputum and shortness of breath and wheezing. Also exertional dyspnea present. Otherwise, review of systems negative. Physical debility is better. A 14-point review of systems done. PHYSICAL EXAMINATION: GENERAL: Elderly male, cooperative during examination. VITAL SIGNS: Temperature is 98.8, pulse is 97, respiratory rate is 22, blood pressure 125/70, sats are 92%. HEENT: Unremarkable. Pupils are equal and reactive. NECK: Supple, no lymphadenopathy, no thyromegaly. LUNGS: Bilateral inspiratory rhonchi and expiratory rhonchi present. The air entry is diminished. CARDIOVASCULAR: S1, S2 heard. No gallop, no murmur, no rub. Apical impulse in left fifth intercostal space and midclavicular line. ABDOMEN: Soft and benign. No hepatosplenomegaly. No guarding, no rigidity. Hernial orifices are normal. EXTREMITIES: Good pedal pulses. No pedal edema. CENTRAL NERVOUS SYSTEM: Alert and oriented x 4. NEUROLOGIC: Nonfocal exam. DIAGNOSTIC DATA: Chest x-ray shows bilateral pulmonary edema/infiltrates and small bilateral pleural effusions. The radiology favors pulmonary edema. EKG shows sinus rhythm, heart rate of 95 per minute, no acute ST-T wave changes. No atrial fibrillation. Acute respiratory failure secondary to chronic obstructive pulmonary disease exacerbation. Check ABG. ABG shows pH of 7.415, pCO2 of 71, pO2 of 70, O2 sats of 94%, and bicarbonate of 25. Sodium is 132, BUN and creatinine is 18 and 1.0. Glucose is 186, total CK is 185. BNP is 4456. Urine is negative. ASSESSMENT AND PLAN: 1. Acute respiratory failure. The patient initiated on DuoNeb, IV Solu-Medrol, and IV antibiotics. BiPAP if necessary. Intubation if necessary. 2. Bilateral pneumonia. The patient is on meropenem and IV vancomycin. Pulmonology consult requested. Also, the patient to get DuoNeb, Solu-Medrol and as well antibiotics of meropenem and vancomycin. 3. Congestive heart failure exacerbation. We will get echocardiogram for ejection fraction. BNP is high in 4400. Cardiology consult requested. Lasix 40 mg IV q. 24 hours. 4. Type 2 diabetes. Continue glimepiride and coverage. Coverage round the clock, a.c. and at bedtime and moderate dose sliding scale protocol. 5. Anemia. Continue iron tablets. Anemia workup. 6. Hypertension. Continue metoprolol. 7. Arrhythmias, and paroxysmal atrial fibrillation. Continue amiodarone and Eliquis. 8. Deep venous thrombosis prophylaxis. The patient is already on Eliquis. Continue the same. The patient on 5 mg q.12 hours. Also, continue gastrointestinal prophylaxis. In summary, the patient has acute respiratory failure, chronic obstructive pulmonary disease exacerbation, congestive heart failure exacerbation, hypertension, well controlled anemia and paroxysmal atrial fibrillation. JOB# [id number] VSM/NTS
[2018-12-08 21:13] LABS: % Iron Saturation 8.68 %
[2018-12-09] MEDS: MERREM/NS 500 MG/50 ML 500 MG/50 ML BAG IV SCH (00:26)
[2018-12-09] MEDS ORDERED: VANCOMYCIN 1,500 MG in NACL 0.9% 500 ML 500 ML IV SCH ×2 (01:00→22:00)
[2018-12-09] MEDS ORDERED: LASIX IV SCH (06:00)
[2018-12-09 07:54] LABS: Alanine Aminotransferase 14 units/L (7-56); Albumin 3.6 g/dL (3.9-5); BUN/Creatinine Ratio 12; Basophils % (Auto) 0.3 % (0.0-1.8); Blood Urea Nitrogen 6 mg/dL (9-20); Calcium 8.8 mg/dL (8.4-10.2); Eosinophils # (Auto) 0.2 K/mm3 (0.0-0.4); Eosinophils % (Auto) 1.6 % (0.0-4.3); Hematocrit 28.9 % (35.5-45.6); Hemoglobin 9.4 gm/dl (11.8-15.2); Hemolysis Index 0; Lymphocytes # (Auto) 1.5 K/mm3 (1.2-5.4); Mean Corpuscular HGB Conc 33 % (32-34); Mean Corpuscular Volume 88 fl (84-94); Monocytes % (Auto) 8.4 % (0.0-7.3); Platelet Count 385 K/mm3 (140-440); Red Blood Count 3.28 M/mm3 (3.65-5.03); Red Cell Distribution Width 16.3 % (13.2-15.2)
[2018-12-09] MEDS: DUONEB *Not for PRN Use IH SCH ×3 (07:57→21:03)
[2018-12-09] MEDS: HALFPRIN EC PO SCH (10:41)
[2018-12-09] MEDS: CORDARONE PO SCH (10:42)
[2018-12-09] MEDS: AMARYL PO SCH (10:42)
[2018-12-09] MEDS: VITAMIN C PO SCH (10:43)
[2018-12-09] MEDS: ELIQUIS PO SCH ×2 (10:43→22:35)
[2018-12-09] MEDS: LOPRESSOR PO SCH ×2 (10:44→22:36)
[2018-12-09] MEDS: PEPCID PO SCH ×2 (10:44→22:35)
[2018-12-09] MEDS: HumaLOG SUB-Q SCH ×3 (10:45→20:05)
[2018-12-09] MEDS: SODIUM CHLORIDE FLUSH SYRINGE 10 ML IV SCH ×2 (10:46→22:40)
--- NOTE | 2018-12-09 11:08 | Consultation ---
History of Present Illness Consult date: 12/09/18 Reason for consult: dyspnea, cough, COPD History of present illness: PULMONARY AND CRITICAL CARE CON SULTATION. DR. MACK THANK YOU FOR ASKING US TO PARTICIPATE IN THE CARE OF THIS PATIENT. Assessment 78-year-old AAM with a history of diabetes, COPD, CHF. He was discharged from the hospital ([facility]) yesterday. His doctor states that she did not feel that he was ready for discharge because he still had respiratory distress. Patient did give himself a nebulizer treatment today but he is still short of breath. He states he's been coughing green sputum. He did not report fever. He is a limited historian but able to answer direct questions. He is not complaining of chest pain. It appears he was treated for CHF and COPD during the last hospitalization but not pneumonia. Patient complains of feeling weak. No acute respiratory distress at this time. Patient is on 2 L O2 via nasal canula. O2 saturation is 97%. Patient has history of smoking, alcohol abuse in the past. However, he stopped many years ago. 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 Patient is not . He has 8 children. Past History Past Medical History: COPD, diabetes, heart failure Past Surgical History: No surgical history Social history: no significant social history Family history: no significant family history Medications and Allergies Allergies Allergy/AdvReac Type Severity Reaction Status Date / Time No Known Allergies Allergy Verified 12/08/18 08:49 Home Medications Medication Instructions Recorded Confirmed Last Taken Type Apixaban [Eliquis] 5 mg PO Q12HR #60 tablet 10/25/18 12/08/18 Unknown Rx Glimepiride [Amaryl] 4 mg PO DAILY #30 tablet 10/25/18 12/08/18 Unknown Rx ALBUTEROL Inhaler (OR & NICU) 2 puff IH Q4H PRN 12/08/18 12/08/18 Unknown History [ProAir HFA Inhaler] Amiodarone [Cordarone 200 MG TAB] 200 mg PO DAILY 12/08/18 12/08/18 Unknown History Ascorbic Acid [Vitamin C] 500 mg PO QDAY 12/08/18 12/08/18 Unknown History Aspirin EC 81 mg PO QDAY 12/08/18 12/08/18 Unknown History Iron Fum,Ps/Folic/Bcomp,C No.9 1 each PO DAILY 12/08/18 12/08/18 Unknown History [Integra Plus Capsule] Metoprolol [Lopressor] 50 mg PO BID 12/08/18 12/08/18 Unknown History Active Meds: Active Medications Acetaminophen (Tylenol) 650 mg PO Q4H PRN PRN Reason: Pain MILD(1-3)/Fever >100.5/DUCKWORTH Albuterol (Proventil) 2.5 mg IH Q4HRT PRN PRN Reason: Shortness Of Breath Last Admin: 12/08/18 22:13 Dose: 2.5 mg Documented by: Albuterol/Ipratropium (Duoneb *Not For Prn Use*) 1 ampul IH QIDRT [facility] Last Admin: 12/09/18 07:57 Dose: 1 ampul Documented by: Amiodarone HCl (Cordarone) 200 mg PO DAILY [facility] Last Admin: 12/09/18 10:42 Dose: 200 mg Documented by: Apixaban (Eliquis) 5 mg PO Q12HR [facility]; Protocol Last Admin: 12/09/18 10:43 Dose: 5 mg Documented by: Ascorbic Acid (Vitamin C) 500 mg PO QDAY [facility] Last Admin: 12/09/18 10:43 Dose: 500 mg Documented by: Aspirin (Halfprin Ec) 81 mg PO QDAY [facility] Last Admin: 12/09/18 10:41 Dose: 81 mg Documented by: Famotidine (Pepcid) 20 mg PO BID [facility] Last Admin: 12/09/18 10:44 Dose: 20 mg Documented by: Furosemide (Lasix) 40 mg IV 0600 [facility] Glimepiride (Amaryl) 4 mg PO QAMDIAB [facility] Last Admin: 12/09/18 10:42 Dose: 4 mg Documented by: Hydromorphone HCl (Dilaudid) 0.5 mg IV Q3H PRN PRN Reason: Pain , Severe (7-10) Meropenem (Merrem/Ns 500 Mg/50 Ml) 500 mg in 50 mls @ 50 mls/hr IV Q6HR [facility] Last Admin: 12/09/18 00:26 Dose: 50 mls/hr Documented by: Vancomycin HCl 1,500 mg/ (Sodium Chloride) 530 mls @ 333.333 mls/hr IV Q18H [facility] Ibuprofen (Ibuprofen) 600 mg PO Q6H PRN PRN Reason: Pain, Mild (1-3) Insulin Human Lispro (Humalog) 0 unit SUB-Q ACHS [facility]; Protocol Last Admin: 12/09/18 10:45 Dose: Not Given Documented by: Methylprednisolone Sodium Succinate (Solu-Medrol) 80 mg IV Q8HR [facility] Metoprolol Tartrate (Lopressor) 50 mg PO BID [facility] Last Admin: 12/09/18 10:44 Dose: 50 mg Documented by: Multivitamins/Iron (Hemocyte Plus) 1 each PO QDAY [facility] Ondansetron HCl (Zofran) 4 mg IV Q8H PRN PRN Reason: Nausea And Vomiting Potassium Chloride (K-Dur) 20 meq PO QDAY [facility] Sodium Chloride (Sodium Chloride Flush Syringe 10 Ml) 10 ml IV BID [facility] Last Admin: 12/09/18 10:46 Dose: 10 ml Documented by: Sodium Chloride (Sodium Chloride Flush Syringe 10 Ml) 10 ml IV PRN PRN PRN Reason: LINE FLUSH Review of Systems All systems: negative Physical Examination Vital signs: Vital Signs Temp Pulse Resp BP Pulse Ox 98.8 F 97 H 22 125/70 92 12/08/18 08:52 12/08/18 08:52 12/08/18 08:52 12/08/18 08:52 12/08/18 08:52 General appearance: no acute distress, alert Eyes: non-icteric ENT: oropharynx moist Neck: supple, no lymphadenopathy, no JVD Effort: normal Ascultation: Bilateral: diminished breath sounds Cardiovascular: regular rate and rhythm Gastrointestinal: normoactive bowel sounds, soft, non-tender Integumentary: normal Extremities: no cyanosis, no edema Musculoskeletal: no deformities normal mental status, non-focal exam, pupils equal and round mood appropriate, affect normal Results - Laboratory Findings CBC and BMP: 12/09/18 06:54 12/09/18 06:54 ABG POC ABG pH 7.415 (7.35-7.45) 12/08/18 10:07 POC ABG pCO2 37.1 (35-45) 12/08/18 10:07 POC ABG pO2 70 (80-105) L 12/08/18 10:07 POC ABG HCO3 23.8 (22-26 mml/L) 12/08/18 10:07 POC ABG Total CO2 25 (23-27mmol/L) 12/08/18 10:07 POC ABG O2 Sat 94 12/08/18 10:07 PT/INR, D-dimer PT 18.7 Sec. (12.2-14.9) H 12/08/18 09:31 INR 1.60 (0.87-1.13) H 12/08/18 09:31 Abnormal lab findings: Abnormal Labs 12/08/18 12/08/18 12/08/18 09:31 09:31 09:31 WBC 16.4 H RBC 3.32 L Hgb 9.7 L Hct 29.1 L RDW 15.6 H Lymph % (Auto) 5.4 L Carbon % (Auto) Lymph # 0.9 L Carbon # 0.9 H Seg Neutrophils % 88.9 H Seg Neutrophils # 14.6 H PT INR POC ABG pO2 Sodium 132 L Chloride 96.1 L BUN Creatinine 0.7 L Glucose 186 H POC Glucose Lactic Acid 2.50 H* Iron TIBC Total Creatine Kinase CK-MB (CK-2) NT-Pro-B Natriuret Pep Albumin Vitamin B12 12/08/18 12/08/18 12/08/18 09:31 09:31 09:31 WBC RBC Hgb Hct RDW Lymph % (Auto) Carbon % (Auto) Lymph # Carbon # Seg Neutrophils % Seg Neutrophils # PT 18.7 H INR 1.60 H POC ABG pO2 Sodium Chloride BUN Creatinine Glucose POC Glucose Lactic Acid Iron TIBC Total Creatine Kinase 185 H CK-MB (CK-2) 4.1 H NT-Pro-B Natriuret Pep 4456 H Albumin 3.7 L Vitamin B12 12/08/18 12/08/18 12/08/18 10:07 10:45 20:35 WBC RBC Hgb Hct RDW Lymph % (Auto) Carbon % (Auto) Lymph # Carbon # Seg Neutrophils % Seg Neutrophils # PT INR POC ABG pO2 70 L Sodium Chloride BUN Creatinine Glucose POC Glucose Lactic Acid 2.30 H* Iron 21 L TIBC 242 L Total Creatine Kinase CK-MB (CK-2) NT-Pro-B Natriuret Pep Albumin Vitamin B12 12/08/18 12/09/18 12/09/18 20:35 06:54 06:54 WBC 12.2 H RBC 3.28 L Hgb 9.4 L Hct 28.9 L RDW 16.3 H Lymph % (Auto) 12.0 L Carbon % (Auto) 8.4 H Lymph # Carbon # 1.0 H Seg Neutrophils % 77.7 H Seg Neutrophils # 9.5 H PT INR POC ABG pO2 Sodium 132 L Chloride 93.8 L BUN 6 L Creatinine 0.5 L Glucose 107 H POC Glucose Lactic Acid Iron TIBC Total Creatine Kinase CK-MB (CK-2) NT-Pro-B Natriuret Pep Albumin 3.6 L Vitamin B12 1587 H 12/09/18 08:16 WBC RBC Hgb Hct RDW Lymph % (Auto) Carbon % (Auto) Lymph # Carbon # Seg Neutrophils % Seg Neutrophils # PT INR POC ABG pO2 Sodium Chloride BUN Creatinine Glucose POC Glucose 108 H Lactic Acid Iron TIBC Total Creatine Kinase CK-MB (CK-2) NT-Pro-B Natriuret Pep Albumin Vitamin B12 - Diagnostic Findings Chest x-ray: report reviewed (Bilateral pulmonary infiltrates/edema. Small bilateral pleural effusions.), image reviewed Assessment and Plan PULMONARY AND CRITICAL CARE CONSULTATION. DR. MACK THANK YOU FOR ASKING US TO PARTICIPATE IN THE CARE OF THIS PATIENT. Assessment 78-year-old AAM with a history of diabetes, COPD, CHF. He was discharged from the hospital ([facility]) yesterday. His doctor states that she did not feel that he was ready for discharge because he still had respiratory distress. Patient did give himself a nebulizer treatment today but he is still short of breath. He states he's been coughing green sputum. He did not report fever. He is a limited historian but able to answer direct questions. He is not complaining of chest pain. It appears he was treated for CHF and COPD during the last hospitalization but not pneumonia. Patient complains of feeling weak. No acute respiratory distress at this time. Patient is on 2 L O2 via nasal canula. O2 saturation is 97%. Patient has history of smoking, alcohol abuse in the past. However, he stopped many years ago. 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 Patient is not . He has 8 children. - Patient Problems (1) Bilateral pneumonia Current Visit: Yes Status: Acute Qualifiers: Pneumonia type: due to unspecified organism Lung location: unspecified part of lung Qualified Code(s): J18.9 - Pneumonia, unspecified organism Plan to address problem: Patient is on cefepime and Vancomycin. (2) COPD (chronic obstructive pulmonary disease) Current Visit: Yes Status: Acute Qualifiers: COPD type: unspecified COPD Qualified Code(s): J44.9 - Chronic obstructive pulmonary disease, unspecified Plan to address problem: Oxygen supplementation of 2 L O2 via nasal canula. Albuterol/ Atrovent aerosol treatment q 6 hours. Continue IV Solumedrol. Patient is on Apixaban. Continue Famotidine. (3) Cardiomyopathy Current Visit: Yes Status: Acute Qualifiers: Cardiomyopathy type: unspecified Qualified Code(s): I42.9 - Cardiomyopathy, unspecified Plan to address problem: Management as per Cardiology. (4) CHF (congestive heart failure) Current Visit: No Status: Acute Qualifiers: Heart failure type: systolic Heart failure chronicity: acute on chronic Qualified Code(s): I50.23 - Acute on chronic systolic (congestive) heart failure Plan to address problem: Management as per Cardiology. (5) Diabetes Current Visit: No Status: Acute Plan to address problem: Management as per primary care. (6) Pleural effusion, bilateral Current Visit: No Status: Acute Plan to address problem: Ultrasound of the chest. (7) Pulmonary edema Current Visit: No Status: Acute Plan to address problem: Patient is receiving lasix. Management as per primary care and cardiology. (8) Acute respiratory failure with hypoxia Current Visit: No Status: Acute Plan to address problem: Oxygen supplementation of 2 L O2 via nasal canula. Albuterol/ Atrovent aerosol treatment q 6 hours. Continue IV Solumedrol. Patient is on Apixaban. Continue Famotidine.
--- NOTE | 2018-12-09 11:11 | Consultation ---
History of Present Illness Consult date: 12/09/18 Consult reason: congestive heart failure History of present illness: This is an 78-year old male with multiple medical problems. 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 Patient is on home O2. He also has paroxysmal atrial flutter, a history of bilateral PE, on Eliquis for oral anticoagulation. Patient presents with shortness of breath, coughs, leukocytosis, admitted with COPD exacerbation, Pneumonia and decompensated heart failure. Patient denies chest pain and palpitations. There is no lower extremity edema. ECG is sinus rhythm, no acute ischemic changes. A cardiac consultation has been requested for management of CHF. Medications and Allergies Allergies Allergy/AdvReac Type Severity Reaction Status Date / Time No Known Allergies Allergy Verified 12/08/18 08:49 Home Medications Medication Instructions Recorded Confirmed Last Taken Type Apixaban [Eliquis] 5 mg PO Q12HR #60 tablet 10/25/18 12/08/18 Unknown Rx Glimepiride [Amaryl] 4 mg PO DAILY #30 tablet 10/25/18 12/08/18 Unknown Rx ALBUTEROL Inhaler (OR & NICU) 2 puff IH Q4H PRN 12/08/18 12/08/18 Unknown History [ProAir HFA Inhaler] Amiodarone [Cordarone 200 MG TAB] 200 mg PO DAILY 12/08/18 12/08/18 Unknown History Ascorbic Acid [Vitamin C] 500 mg PO QDAY 12/08/18 12/08/18 Unknown History Aspirin EC 81 mg PO QDAY 12/08/18 12/08/18 Unknown History Iron Fum,Ps/Folic/Bcomp,C No.9 1 each PO DAILY 12/08/18 12/08/18 Unknown History [Integra Plus Capsule] Metoprolol [Lopressor] 50 mg PO BID 12/08/18 12/08/18 Unknown History Active Meds: Active Medications Acetaminophen (Tylenol) 650 mg PO Q4H PRN PRN Reason: Pain MILD(1-3)/Fever >100.5/DUCKWORTH Albuterol (Proventil) 2.5 mg IH Q4HRT PRN PRN Reason: Shortness Of Breath Last Admin: 12/08/18 22:13 Dose: 2.5 mg Documented by: Albuterol/Ipratropium (Duoneb *Not For Prn Use*) 1 ampul IH QIDRT [facility] Last Admin: 12/09/18 07:57 Dose: 1 ampul Documented by: Amiodarone HCl (Cordarone) 200 mg PO DAILY [facility] Last Admin: 12/09/18 10:42 Dose: 200 mg Documented by: Apixaban (Eliquis) 5 mg PO Q12HR [facility]; Protocol Last Admin: 12/09/18 10:43 Dose: 5 mg Documented by: Ascorbic Acid (Vitamin C) 500 mg PO QDAY [facility] Last Admin: 12/09/18 10:43 Dose: 500 mg Documented by: Aspirin (Halfprin Ec) 81 mg PO QDAY [facility] Last Admin: 12/09/18 10:41 Dose: 81 mg Documented by: Famotidine (Pepcid) 20 mg PO BID [facility] Last Admin: 12/09/18 10:44 Dose: 20 mg Documented by: Furosemide (Lasix) 40 mg IV 0600 [facility] Glimepiride (Amaryl) 4 mg PO QAMDIAB [facility] Last Admin: 12/09/18 10:42 Dose: 4 mg Documented by: Hydromorphone HCl (Dilaudid) 0.5 mg IV Q3H PRN PRN Reason: Pain , Severe (7-10) Meropenem (Merrem/Ns 500 Mg/50 Ml) 500 mg in 50 mls @ 50 mls/hr IV Q6HR [facility] Last Admin: 12/09/18 00:26 Dose: 50 mls/hr Documented by: Vancomycin HCl 1,500 mg/ (Sodium Chloride) 530 mls @ 333.333 mls/hr IV Q18H [facility] Ibuprofen (Ibuprofen) 600 mg PO Q6H PRN PRN Reason: Pain, Mild (1-3) Insulin Human Lispro (Humalog) 0 unit SUB-Q ACHS [facility]; Protocol Last Admin: 12/09/18 10:45 Dose: Not Given Documented by: Methylprednisolone Sodium Succinate (Solu-Medrol) 80 mg IV Q8HR [facility] Metoprolol Tartrate (Lopressor) 50 mg PO BID [facility] Last Admin: 12/09/18 10:44 Dose: 50 mg Documented by: Multivitamins/Iron (Hemocyte Plus) 1 each PO QDAY [facility] Ondansetron HCl (Zofran) 4 mg IV Q8H PRN PRN Reason: Nausea And Vomiting Potassium Chloride (K-Dur) 20 meq PO QDAY [facility] Sodium Chloride (Sodium Chloride Flush Syringe 10 Ml) 10 ml IV BID [facility] Last Admin: 12/09/18 10:46 Dose: 10 ml Documented by: Sodium Chloride (Sodium Chloride Flush Syringe 10 Ml) 10 ml IV PRN PRN PRN Reason: LINE FLUSH Physical Examination Vital Signs Temp Pulse Resp BP Pulse Ox 98.8 F 97 H 22 125/70 92 12/08/18 08:52 12/08/18 08:52 12/08/18 08:52 12/08/18 08:52 12/08/18 08:52 General appearance: no acute distress HEENT: Positive: PERRL Neck: Positive: trachea midline Cardiac: Positive: Reg Rate and Rhythm Lungs: Positive: Decreased Breath Sounds, Wheezes Neuro: Positive: Grossly Intact Extremities: Absent: edema Results 12/09/18 06:54 12/09/18 06:54 Cardiac Enzymes 12/09/18 Range/Units 06:54 AST 15 (5-40) units/L CBC 12/09/18 Range/Units 06:54 WBC 12.2 H (4.5-11.0) K/mm3 RBC 3.28 L (3.65-5.03) M/mm3 Hgb 9.4 L (11.8-15.2) gm/dl Hct 28.9 L (35.5-45.6) % Plt Count 385 (140-440) K/mm3 Lymph # 1.5 (1.2-5.4) K/mm3 Trigg # 1.0 H (0.0-0.8) K/mm3 Eos # 0.2 (0.0-0.4) K/mm3 Baso # 0.0 (0.0-0.1) K/mm3 Comprehensive Metabolic Panel 12/09/18 Range/Units 06:54 Sodium 132 L (137-145) mmol/L Potassium 4.6 (3.6-5.0) mmol/L Chloride 93.8 L (98-107) mmol/L Carbon Dioxide 28 (22-30) mmol/L BUN 6 L (9-20) mg/dL Creatinine 0.5 L (0.8-1.5) mg/dL Glucose 107 H (75-100) mg/dL Calcium 8.8 (8.4-10.2) mg/dL AST 15 (5-40) units/L ALT 14 (7-56) units/L Alkaline Phosphatase 51 (35-129) units/L Total Protein 6.7 (6.3-8.2) g/dL Albumin 3.6 L (3.9-5) g/dL Assessment and Plan COPD exacerbation on home oxygen Pneumonia Chronic systolic heart failure Bilateral pulmonary emboli on eliquis for oral anticoagulation therapy Paroxysmal atrial flutter Cardiomyopathy MPI 04/2018 - small fixed inferior wall defect Hypertension Diabetes Valvular heart lesions Echocardiogram 10/09/18 shows left ventricular ejection fraction 45%, mild mitral stenosis, 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 Recommend: Medical therapy for chronic systolic heart failure, paroxysmal atrial flutter. Conservative management for valvular heart lesions.
--- NOTE | 2018-12-09 12:22 | Consultation ---
History of Present Illness - Reason for Consult Consult date: 12/09/18 Bilateral pneumonia Requesting physician: SUNNI MACK - History of Present Illness The patient is an 78-year-old male with hypertension, CHF, diabetes mellitus presented to the hospital yesterday with shortness of breath and cough present for the last 1 week. Of note, he was recently hospitalized at [facility] from cardiology clinic where he was noted to be in atrial flutter with rapid ventricular rate. He was started on IV amiodarone and then converted to oral amiodarone when he converted to sinus rhythm. Was discharged from the hospital on 12/06/2018. Chest x-ray here showed diffuse bilateral pulmonary infiltrates and small bilateral pleural effusions. He was empirically started on IV meropenem and vancomycin. Infectious diseases was consulted for antibiotic recommendations. He otherwise denies any fever. His only complaint is that of cough, shortness of breath with greenish sputum and overall weakness. Review of Systems: General: no fevers,chills or rigors HEENT: no new visual disturbance Respiratory: + for cough, sputum, shortness of breath Cardiovascular: No chest pain, syncope Gastrointestinal: No nausea, vomiting or diarrhea Genitourinary: No dysuria or hematuria Musculoskeletal: No new or worsening neck pain or back pain Neurologic: No headaches, seizures Hematologic: No easy bruising or bleeding Endocrine: No night sweats or acute weight loss Skin: negative for rash, jaundice Psychiatric: No suicidal or homicidal ideation Past History Past Medical History: COPD Medications and Allergies Allergies Allergy/AdvReac Type Severity Reaction Status Date / Time No Known Allergies Allergy Verified 12/08/18 08:49 Home Medications Medication Instructions Recorded Confirmed Last Taken Type Apixaban [Eliquis] 5 mg PO Q12HR #60 tablet 10/25/18 12/08/18 Unknown Rx Glimepiride [Amaryl] 4 mg PO DAILY #30 tablet 10/25/18 12/08/18 Unknown Rx ALBUTEROL Inhaler (OR & NICU) 2 puff IH Q4H PRN 12/08/18 12/08/18 Unknown History [ProAir HFA Inhaler] Amiodarone [Cordarone 200 MG TAB] 200 mg PO DAILY 12/08/18 12/08/18 Unknown History Ascorbic Acid [Vitamin C] 500 mg PO QDAY 12/08/18 12/08/18 Unknown History Aspirin EC 81 mg PO QDAY 12/08/18 12/08/18 Unknown History Iron Fum,Ps/Folic/Bcomp,C No.9 1 each PO DAILY 12/08/18 12/08/18 Unknown History [Integra Plus Capsule] Metoprolol [Lopressor] 50 mg PO BID 12/08/18 12/08/18 Unknown History Active Meds: Active Medications Acetaminophen (Tylenol) 650 mg PO Q4H PRN PRN Reason: Pain MILD(1-3)/Fever >100.5/DUCK[place]TH Albuterol (Proventil) 2.5 mg IH Q4HRT PRN PRN Reason: Shortness Of Breath Last Admin: 12/08/18 22:13 Dose: 2.5 mg Documented by: Albuterol/Ipratropium (Duoneb *Not For Prn Use*) 1 ampul IH QIDRT [facility] Last Admin: 12/09/18 07:57 Dose: 1 ampul Documented by: Amiodarone HCl (Cordarone) 200 mg PO DAILY [facility] Last Admin: 12/09/18 10:42 Dose: 200 mg Documented by: Apixaban (Eliquis) 5 mg PO Q12HR [facility]; Protocol Last Admin: 12/09/18 10:43 Dose: 5 mg Documented by: Ascorbic Acid (Vitamin C) 500 mg PO QDAY [facility] Last Admin: 12/09/18 10:43 Dose: 500 mg Documented by: Aspirin (Halfprin Ec) 81 mg PO QDAY [facility] Last Admin: 12/09/18 10:41 Dose: 81 mg Documented by: Famotidine (Pepcid) 20 mg PO BID [facility] Last Admin: 12/09/18 10:44 Dose: 20 mg Documented by: Furosemide (Lasix) 40 mg IV 0600 [facility] Glimepiride (Amaryl) 4 mg PO QAMDIAB [facility] Last Admin: 12/09/18 10:42 Dose: 4 mg Documented by: Hydromorphone HCl (Dilaudid) 0.5 mg IV Q3H PRN PRN Reason: Pain , Severe (7-10) Vancomycin HCl 1,500 mg/ (Sodium Chloride) 530 mls @ 333.333 mls/hr IV Q18H [facility] Cefepime HCl (Maxipime/Ns 1 Gm/100 Ml) 1 gm in 100 mls @ 200 mls/hr IV Q8HR [facility]; Protocol Ibuprofen (Ibuprofen) 600 mg PO Q6H PRN PRN Reason: Pain, Mild (1-3) Insulin Human Lispro (Humalog) 0 unit SUB-Q ACHS [facility]; Protocol Last Admin: 12/09/18 10:45 Dose: Not Given Documented by: Methylprednisolone Sodium Succinate (Solu-Medrol) 80 mg IV Q8HR [facility] Metoprolol Tartrate (Lopressor) 50 mg PO BID [facility] Last Admin: 12/09/18 10:44 Dose: 50 mg Documented by: Multivitamins/Iron (Hemocyte Plus) 1 each PO QDAY [facility] Ondansetron HCl (Zofran) 4 mg IV Q8H PRN PRN Reason: Nausea And Vomiting Potassium Chloride (K-Dur) 20 meq PO QDAY [facility] Sodium Chloride (Sodium Chloride Flush Syringe 10 Ml) 10 ml IV BID [facility] Last Admin: 12/09/18 10:46 Dose: 10 ml Documented by: Sodium Chloride (Sodium Chloride Flush Syringe 10 Ml) 10 ml IV PRN PRN PRN Reason: LINE FLUSH Physical Examination - Physical Exam Narrative exam: Physical Exam: Constitutional: Alert, cooperative. No acute distress Head, Ears, Nose: Normocephalic, atraumatic. External ears, nose normal Eyes: Conjunctivae/corneas clear. No icterus. No ptosis. Neck: Supple, no meningeal signs Oral: edentulous, no thrush Cardiovascular: S1, S2 normal. Respiratory: coarse sounds b/l with diffuse wheeze bilaterally GI: Soft, non-tender; bowel sounds normal. No peritoneal signs Musculoskeletal: No pedal edema, no cyanosis. Skin: No rash or abscess Hem/Lymphatic: No palpable cervical or supraclavicular nodes. No lymphangitis Psych: Mood ok. Affect normal Neurological: Awake, alert, oriented. No gross abnormality - Constitutional Vitals: Vital Signs Temp Pulse Resp BP Pulse Ox 98.4 F 98 H 18 138/75 98 12/09/18 07:46 12/09/18 10:44 12/09/18 07:58 12/09/18 10:44 12/09/18 07:59 Temperature -Last 24 Hours Temperature 98.4 F Temperature 98.9 F Temperature 99.2 F Temperature 98.2 F Temperature 98.2 F Results - Labs CBC & Chem 7: 12/09/18 06:54 12/09/18 06:54 Labs: Abnormal lab results 12/08/18 12/08/18 12/09/18 Range/Units 20:35 20:35 06:54 WBC 12.2 H (4.5-11.0) K/mm3 RBC 3.28 L (3.65-5.03) M/mm3 Hgb 9.4 L (11.8-15.2) gm/dl Hct 28.9 L (35.5-45.6) % RDW 16.3 H (13.2-15.2) % Lymph % (Auto) 12.0 L (13.4-35.0) % Mason % (Auto) 8.4 H (0.0-7.3) % Mason # 1.0 H (0.0-0.8) K/mm3 Seg Neutrophils % 77.7 H (40.0-70.0) % Seg Neutrophils # 9.5 H (1.8-7.7) K/mm3 Sodium (137-145) mmol/L Chloride (98-107) mmol/L BUN (9-20) mg/dL Creatinine (0.8-1.5) mg/dL Glucose (75-100) mg/dL POC Glucose (70-105) Iron 21 L (49-181) ug/dL TIBC 242 L (250-450) mcg/dL Albumin (3.9-5) g/dL Vitamin B12 1587 H (211-911) pg/mL 12/09/18 12/09/18 12/09/18 Range/Units 06:54 08:16 11:38 WBC (4.5-11.0) K/mm3 RBC (3.65-5.03) M/mm3 Hgb (11.8-15.2) gm/dl Hct (35.5-45.6) % RDW (13.2-15.2) % Lymph % (Auto) (13.4-35.0) % Mason % (Auto) (0.0-7.3) % Mason # (0.0-0.8) K/mm3 Seg Neutrophils % (40.0-70.0) % Seg Neutrophils # (1.8-7.7) K/mm3 Sodium 132 L (137-145) mmol/L Chloride 93.8 L (98-107) mmol/L BUN 6 L (9-20) mg/dL Creatinine 0.5 L (0.8-1.5) mg/dL Glucose 107 H (75-100) mg/dL POC Glucose 108 H 143 H (70-105) Iron (49-181) ug/dL TIBC (250-450) mcg/dL Albumin 3.6 L (3.9-5) g/dL Vitamin B12 (211-911) pg/mL - Imaging and Cardiology Chest x-ray: report reviewed, image reviewed (diffuse b/l air space opacities, small b/l effusions) Assessment and Plan Cultures: 12/08/2018 blood culture: In progress 12/08/2018 nasal MRSA culture: Pending A/P: 78-year-old male with hypertension, CHF, diabetes mellitus presented to the hospital yesterday with shortness of breath and cough present for the last 1 wee k. Note, he was recently hospitalized at [facility] from his cardiology clinic where he was noted to be in atrial flutter with rapid ventricular rate. He was started on IV amiodarone and then converted to oral amiodarone when he converted to sinus rhythm. Was discharged from the hospital on 12/06/2018. Admitted with: 1) Bilateral pneumonia, acute respiratory failure: No fever, does have neut rophilic leukocytosis. Differential includes hospital-acquired pneumonia versus ? Amiodarone toxicity given recent initiation of amiodarone. For now, treat with cefepime and vancomycin. Sputum culture ordered. Pulmonary consulted, pt also on steroids for possible COPD exacerbation. 2) Congestive heart failure: Cardiology consulted. 3) Diabetes mellitus type 2 4) A.fib/flutter: On amiodarone and anticoagulation with Eliquis. Recs: Discontinued meropenem Started IV cefepime next and continue vancomycin and follow-up nasal MRSA culture resp culture ordered Betsy Jacobs MD, FACP [facility] C: [phone] O: [phone] F: [phone]
[2018-12-09] MEDS ORDERED: LASIX IV ONE (13:23)
--- NOTE | 2018-12-09 13:32 | Progress Note ---
Assessment and Plan Assessment and plan: Acute hypoxic respiratory failure, COPD exacerbation - Patient is on IV Solu-Medrol, duo nebs, nebulizer treatments, oxygen support, continue antibiotics Bilateral pneumonia -Patient is on IV vancomycin and cefepime - Infectious disease following History of PE - Continue eliquis Paroxysmal atrial flutter - Controlled, continue eliquis Cardiomyopathy, chronic systolic CHF with acute exacerbation - Patient is on IV Lasix - Cardiology consulted and recommend to continue conservative cardiac management DVT prophylaxis Disposition; continue inpatient care History Interval history: Patient was seen and evaluated this morning, patient has SOB Hospitalist Physical - Physical exam Narrative exam: Patient is in moderate respiratory distress. The patient appeared well nourished and normally developed. Vital signs as documented. Head exam is unremarkable. No scleral icterus . Neck is without jugular venous distension, thyromegaly, or carotid bruits. Lungs wheezing on both of the chest. Cardiac exam reveals irregular rate and Rhythm. Abdominal exam reveals normal bowel sounds, no masses, no organomegaly and no aortic enlargement. Extremities are nonedematous and both femoral and pedal pulses are normal. [employer]: Alert and oriented 3. No focal weakness. - Constitutional Vitals: Temp Pulse Resp BP Pulse Ox 98.4 F 98 H 18 138/75 98 12/09/18 07:46 12/09/18 10:44 12/09/18 07:58 12/09/18 10:44 12/09/18 07:59 General appearance: Present: no acute distress Results - Labs CBC & Chem 7: 12/09/18 06:54 12/09/18 06:54 Labs: Laboratory Last Values WBC 12.2 K/mm3 (4.5-11.0) H 12/09/18 06:54 RBC 3.28 M/mm3 (3.65-5.03) L 12/09/18 06:54 Hgb 9.4 gm/dl (11.8-15.2) L 12/09/18 06:54 Hct 28.9 % (35.5-45.6) L 12/09/18 06:54 MCV 88 fl (84-94) 12/09/18 06:54 MCH 29 pg (28-32) 12/09/18 06:54 MCHC 33 % (32-34) 12/09/18 06:54 RDW 16.3 % (13.2-15.2) H 12/09/18 06:54 Plt Count 385 K/mm3 (140-440) 12/09/18 06:54 Lymph % (Auto) 12.0 % (13.4-35.0) L 12/09/18 06:54 [place] % (Auto) 8.4 % (0.0-7.3) H 12/09/18 06:54 Eos % (Auto) 1.6 % (0.0-4.3) 12/09/18 06:54 Baso % (Auto) 0.3 % (0.0-1.8) 12/09/18 06:54 Lymph # 1.5 K/mm3 (1.2-5.4) 12/09/18 06:54 [place] # 1.0 K/mm3 (0.0-0.8) H 12/09/18 06:54 Eos # 0.2 K/mm3 (0.0-0.4) 12/09/18 06:54 Baso # 0.0 K/mm3 (0.0-0.1) 12/09/18 06:54 Seg Neutrophils % 77.7 % (40.0-70.0) H 12/09/18 06:54 Seg Neutrophils # 9.5 K/mm3 (1.8-7.7) H 12/09/18 06:54 PT 18.7 Sec. (12.2-14.9) H 12/08/18 09:31 INR 1.60 (0.87-1.13) H 12/08/18 09:31 APTT 34.5 Sec. (24.2-36.6) 12/08/18 09:31 POC ABG pH 7.415 (7.35-7.45) 12/08/18 10:07 POC ABG pCO2 37.1 (35-45) 12/08/18 10:07 POC ABG pO2 70 (80-105) L 12/08/18 10:07 POC ABG HCO3 23.8 (22-26 mml/L) 12/08/18 10:07 POC ABG Total CO2 25 (23-27mmol/L) 12/08/18 10:07 POC ABG O2 Sat 94 12/08/18 10:07 POC ABG Base Excess -1 ((-2) - (+3)mmol/L) 12/08/18 10:07 32 % 12/08/18 10:07 Sodium 132 mmol/L (137-145) L 12/09/18 06:54 Potassium 4.6 mmol/L (3.6-5.0) 12/09/18 06:54 Chloride 93.8 mmol/L (98-107) L 12/09/18 06:54 Carbon Dioxide 28 mmol/L (22-30) 12/09/18 06:54 15 mmol/L 12/09/18 06:54 BUN 6 mg/dL (9-20) L 12/09/18 06:54 0.5 mg/dL (0.8-1.5) L 12/09/18 06:54 Estimated GFR > 60 ml/min 12/09/18 06:54 12 % 12/09/18 06:54 Glucose 107 mg/dL (75-100) H 12/09/18 06:54 POC Glucose 143 (70-105) H 12/09/18 11:38 5.2 % (4-6) 12/08/18 20:35 Lactic Acid 1.30 mmol/L (0.7-2.0) 12/08/18 11:56 Calcium 8.8 mg/dL (8.4-10.2) 12/09/18 06:54 Magnesium 1.80 mg/dL (1.7-2.3) 12/08/18 09:31 Iron 21 ug/dL (49-181) L 12/08/18 20:35 TIBC 242 mcg/dL (250-450) L 12/08/18 20:35 % Saturation 8.68 % 12/08/18 20:35 199 mg/dl (180-329) 12/08/18 20:35 0.40 mg/dL (0.1-1.2) 12/09/18 06:54 < 0.2 mg/dL (0-0.2) 12/08/18 09:31 0.2 mg/dL 12/08/18 09:31 AST 15 units/L (5-40) 12/09/18 06:54 ALT 14 units/L (7-56) 12/09/18 06:54 51 units/L (35-129) 12/09/18 06:54 185 units/L (55-170) H 12/08/18 09:31 CK-MB (CK-2) 4.1 ng/mL (0.0-4.0) H 12/08/18 09:31 CK-MB (CK-2) Rel Index 2.2 (0-4) 12/08/18 09:31 < 0.010 ng/mL (0.00-0.029) 12/08/18 09:31 NT-Pro-B Natriuret Pep 4456 pg/mL (0-900) H 12/08/18 09:31 6.7 g/dL (6.3-8.2) 12/09/18 06:54 3.6 g/dL (3.9-5) L 12/09/18 06:54 1.2 % 12/09/18 06:54 Vitamin B12 1587 pg/mL (211-911) H 12/08/18 20:35 Dark yellow (Yellow) 12/08/18 17:22 Cloudy (Clear) 12/08/18 17:22 5.0 (5.0-7.0) 12/08/18 17:22 Ur Specific Jay 1.013 (1.003-1.030) 12/08/18 17:22 <15 mg/dl mg/dL (Negative) 12/08/18 17:22 Neg mg/dL (Negative) 12/08/18 17:22 Neg mg/dL (Negative) 12/08/18 17:22 Neg (Negative) 12/08/18 17:22 Neg (Negative) 12/08/18 17:22 Neg (Negative) 12/08/18 17:22 < 2.0 mg/dL (<2.0) 12/08/18 17:22 Ur Leukocyte Esterase Neg (Negative) 12/08/18 17:22 1.0 /HPF (0.0-6.0) 12/08/18 17:22 4.0 /HPF (0.0-6.0) 12/08/18 17:22 U Epithel Cells (Auto) < 1.0 /HPF (0-13.0) 12/08/18 17:22 Few /HPF 12/08/18 17:22 Active Medications - Current Medications Current Medications: Generic Name Dose Route Start Last Admin Trade Name Freq PRN Reason Stop Dose Admin Acetaminophen 650 mg 07/16/19 20:16 Tylenol PO Q4H PRN Pain MILD(1-3)/Fever >100.5/[place] Albuterol 2.5 mg 12/08/18 20:19 12/08/18 22:13 Proventil IH 2.5 mg Q4HRT PRN Administration Shortness Of Breath Albuterol/Ipratropium 1 ampul 12/09/18 08:00 12/09/18 07:57 Duoneb *Not For Prn Use* IH 1 ampul QIDRT [facility] Administration Amiodarone HCl 200 mg 12/08/18 20:00 12/09/18 10:42 Cordarone PO 200 mg DAILY [facility] Administration Apixaban 5 mg 12/08/18 22:00 12/09/18 10:43 Eliquis PO 5 mg Q12HR [facility] Administration Protocol Ascorbic Acid 500 mg 12/08/18 20:00 12/09/18 10:43 Vitamin C PO 500 mg QDAY [facility] Administration Aspirin 81 mg 12/09/18 10:00 12/09/18 10:41 Halfprin Ec PO 81 mg QDAY [facility] Administration Famotidine 20 mg 12/08/18 22:00 12/09/18 10:44 Pepcid PO 20 mg BID [facility] Administration Furosemide 40 mg 12/09/18 13:23 Lasix IV 12/09/18 13:24 ONCE ONE Furosemide 40 mg 12/09/18 18:00 Lasix IV 0600,1800 [facility] Glimepiride 4 mg 12/08/18 20:00 12/09/18 10:42 Amaryl PO 4 mg QAMDIAB [facility] Administration Hydromorphone HCl 0.5 mg 12/08/18 20:16 Dilaudid IV Q3H PRN Pain , Severe (7-10) Vancomycin HCl 1,500 mg/ 530 mls @ 333.333 mls/hr 12/09/18 22:00 Sodium Chloride IV Q18H [facility] Cefepime HCl 1 gm in 100 mls @ 200 mls/hr 12/09/18 14:00 Maxipime/Ns 1 Gm/100 Ml IV Q8HR [facility] Protocol Ibuprofen 600 mg 12/08/18 20:16 Ibuprofen PO Q6H PRN Pain, Mild (1-3) Insulin Human Lispro 0 unit 12/08/18 22:00 12/09/18 12:53 Humalog SUB-Q Not Given ACHS [facility] Protocol Methylprednisolone Sodium Succinate 80 mg 12/08/18 22:00 Solu-Medrol IV Q8HR [facility] Metoprolol Tartrate 50 mg 12/08/18 22:00 12/09/18 10:44 Lopressor PO 50 mg BID [facility] Administration Multivitamins/Iron 1 each 12/09/18 11:00 Hemocyte Plus PO QDAY [facility] Ondansetron HCl 4 mg 12/08/18 20:16 Zofran IV Q8H PRN Nausea And Vomiting Potassium Chloride 20 meq 12/08/18 21:00 K-Dur PO QDAY [facility] Sodium Chloride 10 ml 12/08/18 22:00 12/09/18 10:46 Sodium Chloride Flush Syringe 10 Ml IV 10 ml BID [facility] Administration Sodium Chloride 10 ml 12/08/18 20:16 Sodium Chloride Flush Syringe 10 Ml IV PRN PRN LINE FLUSH
[2018-12-09] MEDS: HEMOCYTE PLUS PO SCH (13:49)
[2018-12-09] MEDS: SOLU-Medrol IV SCH ×3 (13:49→22:36)
[2018-12-09] MEDS: MAXIPIME/NS 1 GM/100 ML 1 GM/100 ML BAG IV SCH ×2 (14:37→22:00)
[2018-12-09] MEDS: LASIX IV SCH (20:12)
[2018-12-09] MEDS: SODIUM CHLORIDE FLUSH SYRINGE 10 ML IV PRN (22:40)
[2018-12-10] MEDS: MERREM/NS 500 MG/50 ML 500 MG/50 ML BAG IV SCH ×2 (06:25→08:01)
[2018-12-10] MEDS: SODIUM CHLORIDE FLUSH SYRINGE 10 ML IV SCH ×3 (06:27→22:26)
[2018-12-10] MEDS: SOLU-Medrol IV SCH ×4 (06:28→22:25)
[2018-12-10] MEDS: HumaLOG SUB-Q SCH ×5 (07:46→22:26)
[2018-12-10] MEDS: LOPRESSOR PO SCH ×3 (08:01→22:25)
[2018-12-10] MEDS: PEPCID PO SCH ×3 (08:01→22:25)
[2018-12-10] MEDS: ELIQUIS PO SCH ×2 (08:01→09:05)
[2018-12-10] MEDS: MAXIPIME/NS 1 GM/100 ML 1 GM/100 ML BAG IV SCH ×3 (08:01→22:25)
[2018-12-10] MEDS: LASIX IV SCH ×2 (08:02→18:19)
[2018-12-10] MEDS: AMARYL PO SCH (08:05)
--- NOTE | 2018-12-10 08:37 | XRay Report ---
CHEST 1 VIEW INDICATION: SOB. COMPARISON: 12/08/2018 FINDINGS: Support devices: None. Heart: Within normal limits. Pulmonary vessels: Central vascular congestion with indistinctness of the vessels. Lungs: Diffuse bilateral airspace disease, worse in the right upper lobe and the right lung base is n ot significantly changed compared to the previous exam. Pleura: Suspect pleural effusions. No pneumothorax. Additional findings: None. IMPRESSION: 1. Diffuse bilateral pulmonary edema versus pneumonia without significant change. Signer Name: Eliud Walls MD Signed: 12/10/2018 8:32 AM Workstation Name: [id number]
--- NOTE | 2018-12-10 08:44 | Progress Note ---
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 Subjective Date of service: 12/10/18 Interval history: Patient has no complaints. Reports his breathing is better. Objective Vital Signs Temp Pulse Resp BP Pulse Ox 12/10/18 07:40 98.0 F 89 18 139/73 99 12/10/18 02:29 98.0 F 84 20 130/71 98 12/09/18 22:36 94 H 138/75 12/09/18 20:03 98.3 F 94 H 20 138/75 98 12/09/18 13:37 98.5 F 95 H 20 142/81 97 12/09/18 10:44 98 H 138/75 - Physical Examination General: No Apparent Distress HEENT: Positive: PERRL Neck: Positive: trachea midline Cardiac: Positive: Reg Rate and Rhythm Lungs: Positive: Decreased Breath Sounds Neuro: Positive: Grossly Intact Extremities: Absent: edema
--- NOTE | 2018-12-10 09:00 | Progress Note ---
Assessment and Plan -Acute hypoxic respiratory failure -Bilateral infiltrates, being treated as HAP -COPD-AE -Bilateral pleural effusions -Congestive heart failure -Diabetes mellitus type 2 -A.fib/flutter Subjective Date of service: 12/10/18 Interval history: Patient is seen today for: Seen and examined at bedside; 24hour events reviewed; nursing and respiratory care staff consulted; no adverse overnight events reported to me; Objective Vital Signs - 12hr 12/09/18 12/10/18 12/10/18 22:36 02:29 07:40 Temperature 98.0 F 98.0 F Pulse Rate 94 H 84 89 Respiratory 20 18 Rate Blood Pressure 138/75 130/71 139/73 O2 Sat by Pulse 98 99 Oximetry Constitutional: no acute distress, alert Eyes: non-icteric ENT: oropharynx moist Neck: supple, no lymphadenopathy, no JVD Effort: normal Ascultation: Bilateral: diminished breath sounds Cardiovascular: regular rate and rhythm Gastrointestinal: normoactive bowel sounds, soft, non-tender Integumentary: normal Extremities: no cyanosis, no edema Neurologic: normal mental status, non-focal exam, pupils equal and round Psychiatric: mood appropriate, affect normal CBC and BMP: 12/09/18 06:54 12/09/18 06:54 ABG, PT/INR, D-dimer: ABG POC ABG pH 7.415 (7.35-7.45) 12/08/18 10:07 POC ABG pCO2 37.1 (35-45) 12/08/18 10:07 POC ABG pO2 70 (80-105) L 12/08/18 10:07 POC ABG HCO3 23.8 (22-26 mml/L) 12/08/18 10:07 POC ABG Total CO2 25 (23-27mmol/L) 12/08/18 10:07 POC ABG O2 Sat 94 12/08/18 10:07 PT/INR, D-dimer PT 18.7 Sec. (12.2-14.9) H 12/08/18 09:31 INR 1.60 (0.87-1.13) H 12/08/18 09:31 Abnormal lab findings: Abnormal Labs 12/08/18 12/08/18 12/08/18 09:31 09:31 09:31 WBC 16.4 H RBC 3.32 L Hgb 9.7 L Hct 29.1 L RDW 15.6 H Lymph % (Auto) 5.4 L Moore % (Auto) Lymph # 0.9 L Moore # 0.9 H Seg Neutrophils % 88.9 H Seg Neutrophils # 14.6 H PT INR POC ABG pO2 Sodium 132 L Chloride 96.1 L BUN Creatinine 0.7 L Glucose 186 H POC Glucose Lactic Acid 2.50 H* Iron TIBC Total Creatine Kinase CK-MB (CK-2) NT-Pro-B Natriuret Pep Albumin Vitamin B12 12/08/18 12/08/18 12/08/18 09:31 09:31 09:31 WBC RBC Hgb Hct RDW Lymph % (Auto) Moore % (Auto) Lymph # Moore # Seg Neutrophils % Seg Neutrophils # PT 18.7 H INR 1.60 H POC ABG pO2 Sodium Chloride BUN Creatinine Glucose POC Glucose Lactic Acid Iron TIBC Total Creatine Kinase 185 H CK-MB (CK-2) 4.1 H NT-Pro-B Natriuret Pep 4456 H Albumin 3.7 L Vitamin B12 12/08/18 12/08/18 12/08/18 10:07 10:45 20:35 WBC RBC Hgb Hct RDW Lymph % (Auto) Moore % (Auto) Lymph # Moore # Seg Neutrophils % Seg Neutrophils # PT INR POC ABG pO2 70 L Sodium Chloride BUN Creatinine Glucose POC Glucose Lactic Acid 2.30 H* Iron 21 L TIBC 242 L Total Creatine Kinase CK-MB (CK-2) NT-Pro-B Natriuret Pep Albumin Vitamin B12 12/08/18 12/09/18 12/09/18 20:35 06:54 06:54 WBC 12.2 H RBC 3.28 L Hgb 9.4 L Hct 28.9 L RDW 16.3 H Lymph % (Auto) 12.0 L Moore % (Auto) 8.4 H Lymph # Moore # 1.0 H Seg Neutrophils % 77.7 H Seg Neutrophils # 9.5 H PT INR POC ABG pO2 Sodium 132 L Chloride 93.8 L BUN 6 L Creatinine 0.5 L Glucose 107 H POC Glucose Lactic Acid Iron TIBC Total Creatine Kinase CK-MB (CK-2) NT-Pro-B Natriuret Pep Albumin 3.6 L Vitamin B12 1587 H 12/09/18 12/09/18 12/09/18 08:16 11:38 16:39 WBC RBC Hgb Hct RDW Lymph % (Auto) [place] % (Auto) Lymph # Moore # Seg Neutrophils % Seg Neutrophils # PT INR POC ABG pO2 Sodium Chloride BUN Creatinine Glucose POC Glucose 108 H 143 H 187 H Lactic Acid Iron TIBC Total Creatine Kinase CK-MB (CK-2) NT-Pro-B Natriuret Pep Albumin Vitamin B12 12/09/18 12/10/18 22:26 07:48 WBC RBC Hgb Hct RDW Lymph % (Auto) [place] % (Auto) Lymph # Moore # Seg Neutrophils % Seg Neutrophils # PT INR POC ABG pO2 Sodium Chloride BUN Creatinine Glucose POC Glucose 244 H 197 H Lactic Acid Iron TIBC Total Creatine Kinase CK-MB (CK-2) NT-Pro-B Natriuret Pep Albumin Vitamin B12
[2018-12-10] MEDS: VITAMIN C PO SCH (09:03)
[2018-12-10] MEDS: CORDARONE PO SCH (09:05)
[2018-12-10] MEDS: HALFPRIN EC PO SCH (09:05)
[2018-12-10] MEDS: HEMOCYTE PLUS PO SCH (09:06)
[2018-12-10] MEDS ORDERED: K-DUR PO SCH (10:00)
[2018-12-10] MEDS: DUONEB *Not for PRN Use IH SCH ×4 (10:12→19:58)
[2018-12-10] MEDS ORDERED: MILK OF MAGNESIA PO PRN (11:03)
[2018-12-10] MEDS: ALDACTONE PO SCH (13:03)
[2018-12-10] MEDS: ZAROXOLYN PO SCH (13:06)
--- NOTE | 2018-12-10 15:21 | Progress Note ---
Assessment and Plan Assessment and plan: Acute hypoxic respiratory failure, COPD exacerbation - Patient is on IV Solu-Medrol, duo nebs, nebulizer treatments, oxygen support, continue antibiotics Bilateral pneumonia -Patient is on IV vancomycin and cefepime - Infectious disease following History of PE - Continue eliquis Paroxysmal atrial flutter - Controlled, continue eliquis Cardiomyopathy, chronic systolic CHF with acute exacerbation - Patient is on IV Lasix - Cardiology consulted and recommend to continue diurese the patient and right a nd left heart cath on Friday DVT prophylaxis Disposition; continue inpatient care History Interval history: Patient was seen and evaluated this morning, patient's SOB is getting better. Hospitalist Physical - Physical exam Narrative exam: Patient is in moderate respiratory distress. The patient appeared well nourished and normally developed. Vital signs as documented. Head exam is unremarkable. No scleral icterus . Neck is without jugular venous distension, thyromegaly, or carotid bruits. Lungs wheezing on both of the chest. Cardiac exam reveals irregular rate and Rhythm. Abdominal exam reveals normal bowel sounds, no masses, no organomegaly and no aortic enlargement. Extremities are nonedematous and both femoral and pedal pulses are normal. RADIOGRAPHIC TECHNOLOGIST: Alert and oriented 3. No focal weakness. - Constitutional Vitals: Temp Pulse Resp BP Pulse Ox 97.9 F 90 20 102/62 98 12/10/18 13:41 12/10/18 13:41 12/10/18 13:41 12/10/18 13:41 12/10/18 13:41 General appearance: Present: no acute distress Results - Labs CBC & Chem 7: 12/09/18 06:54 12/09/18 06:54 Labs: Laboratory Last Values WBC 12.2 K/mm3 (4.5-11.0) H 12/09/18 06:54 RBC 3.28 M/mm3 (3.65-5.03) L 12/09/18 06:54 Hgb 9.4 gm/dl (11.8-15.2) L 12/09/18 06:54 Hct 28.9 % (35.5-45.6) L 12/09/18 06:54 MCV 88 fl (84-94) 12/09/18 06:54 MCH 29 pg (28-32) 12/09/18 06:54 MCHC 33 % (32-34) 12/09/18 06:54 RDW 16.3 % (13.2-15.2) H 12/09/18 06:54 Plt Count 385 K/mm3 (140-440) 12/09/18 06:54 Lymph % (Auto) 12.0 % (13.4-35.0) L 12/09/18 06:54 [place] % (Auto) 8.4 % (0.0-7.3) H 12/09/18 06:54 Eos % (Auto) 1.6 % (0.0-4.3) 12/09/18 06:54 Baso % (Auto) 0.3 % (0.0-1.8) 12/09/18 06:54 Lymph # 1.5 K/mm3 (1.2-5.4) 12/09/18 06:54 [place] # 1.0 K/mm3 (0.0-0.8) H 12/09/18 06:54 Eos # 0.2 K/mm3 (0.0-0.4) 12/09/18 06:54 Baso # 0.0 K/mm3 (0.0-0.1) 12/09/18 06:54 Seg Neutrophils % 77.7 % (40.0-70.0) H 12/09/18 06:54 Seg Neutrophils # 9.5 K/mm3 (1.8-7.7) H 12/09/18 06:54 PT 18.7 Sec. (12.2-14.9) H 12/08/18 09:31 INR 1.60 (0.87-1.13) H 12/08/18 09:31 APTT 34.5 Sec. (24.2-36.6) 12/08/18 09:31 POC ABG pH 7.415 (7.35-7.45) 12/08/18 10:07 POC ABG pCO2 37.1 (35-45) 12/08/18 10:07 POC ABG pO2 70 (80-105) L 12/08/18 10:07 POC ABG HCO3 23.8 (22-26 mml/L) 12/08/18 10:07 POC ABG Total CO2 25 (23-27mmol/L) 12/08/18 10:07 POC ABG O2 Sat 94 12/08/18 10:07 POC ABG Base Excess -1 ((-2) - (+3)mmol/L) 12/08/18 10:07 32 % 12/08/18 10:07 Sodium 132 mmol/L (137-145) L 12/09/18 06:54 Potassium 4.6 mmol/L (3.6-5.0) 12/09/18 06:54 Chloride 93.8 mmol/L (98-107) L 12/09/18 06:54 Carbon Dioxide 28 mmol/L (22-30) 12/09/18 06:54 15 mmol/L 12/09/18 06:54 BUN 6 mg/dL (9-20) L 12/09/18 06:54 0.5 mg/dL (0.8-1.5) L 12/09/18 06:54 Estimated GFR > 60 ml/min 12/09/18 06:54 12 % 12/09/18 06:54 Glucose 107 mg/dL (75-100) H 12/09/18 06:54 POC Glucose 267 (70-105) H 12/10/18 11:28 5.2 % (4-6) 12/08/18 20:35 Lactic Acid 1.30 mmol/L (0.7-2.0) 12/08/18 11:56 Calcium 8.8 mg/dL (8.4-10.2) 12/09/18 06:54 Magnesium 1.80 mg/dL (1.7-2.3) 12/08/18 09:31 Iron 21 ug/dL (49-181) L 12/08/18 20:35 TIBC 242 mcg/dL (250-450) L 12/08/18 20:35 % Saturation 8.68 % 12/08/18 20:35 199 mg/dl (180-329) 12/08/18 20:35 0.40 mg/dL (0.1-1.2) 12/09/18 06:54 < 0.2 mg/dL (0-0.2) 12/08/18 09:31 0.2 mg/dL 12/08/18 09:31 AST 15 units/L (5-40) 12/09/18 06:54 ALT 14 units/L (7-56) 12/09/18 06:54 51 units/L (35-129) 12/09/18 06:54 185 units/L (55-170) H 12/08/18 09:31 CK-MB (CK-2) 4.1 ng/mL (0.0-4.0) H 12/08/18 09:31 CK-MB (CK-2) Rel Index 2.2 (0-4) 12/08/18 09:31 < 0.010 ng/mL (0.00-0.029) 12/08/18 09:31 NT-Pro-B Natriuret Pep 4456 pg/mL (0-900) H 12/08/18 09:31 6.7 g/dL (6.3-8.2) 12/09/18 06:54 3.6 g/dL (3.9-5) L 12/09/18 06:54 1.2 % 12/09/18 06:54 Vitamin B12 1587 pg/mL (211-911) H 12/08/18 20:35 Dark yellow (Yellow) 12/08/18 17:22 Cloudy (Clear) 12/08/18 17:22 5.0 (5.0-7.0) 12/08/18 17:22 Ur Specific [place] 1.013 (1.003-1.030) 12/08/18 17:22 <15 mg/dl mg/dL (Negative) 12/08/18 17:22 Neg mg/dL (Negative) 12/08/18 17:22 Neg mg/dL (Negative) 12/08/18 17:22 Neg (Negative) 12/08/18 17:22 Neg (Negative) 12/08/18 17:22 Neg (Negative) 12/08/18 17:22 < 2.0 mg/dL (<2.0) 12/08/18 17:22 Ur Leukocyte Esterase Neg (Negative) 12/08/18 17:22 1.0 /HPF (0.0-6.0) 12/08/18 17:22 4.0 /HPF (0.0-6.0) 12/08/18 17:22 U Epithel Cells (Auto) < 1.0 /HPF (0-13.0) 12/08/18 17:22 Few /HPF 12/08/18 17:22 Active Medications - Current Medications Current Medications: Generic Name Dose Route Start Last Admin Trade Name Freq PRN Reason Stop Dose Admin Acetaminophen 650 mg 12/08/18 20:16 Tylenol PO Q4H PRN Pain MILD(1-3)/Fever >100.5/[place] Albuterol 2.5 mg 12/08/18 20:19 12/08/18 22:13 Proventil IH 2.5 mg Q4HRT PRN Administration Shortness Of Breath Albuterol/Ipratropium 1 ampul 12/09/18 08:00 12/10/18 14:54 Duoneb *Not For Prn Use* IH Not Given QIDRT PENDING SALE TO [facility] Amiodarone HCl 200 mg 12/08/18 20:00 12/10/18 09:05 Cordarone PO 200 mg DAILY PENDING SALE TO [facility] Administration Ascorbic Acid 500 mg 12/08/18 20:00 12/10/18 09:03 Vitamin C PO 500 mg QDAY DEIDRA Administration Aspirin 81 mg 12/09/18 10:00 12/10/18 09:05 Halfprin Ec PO 81 mg QDAY DEIDRA Administration Famotidine 20 mg 12/08/18 22:00 12/10/18 09:04 Pepcid PO 20 mg BID DEIDRA Administration Furosemide 40 mg 12/09/18 18:00 12/10/18 08:02 Lasix IV Not Given 0600,1800 PENDING SALE TO [facility] Glimepiride 4 mg 12/08/18 20:00 12/10/18 08:05 Amaryl PO 4 mg QAMDIAB DEIDRA Administration Hydromorphone HCl 0.5 mg 12/08/18 20:16 Dilaudid IV Q3H PRN Pain , Severe (7-10) Cefepime HCl 1 gm in 100 mls @ 200 mls/hr 12/09/18 14:00 12/10/18 13:03 Maxipime/Ns 1 Gm/100 Ml IV 200 mls/hr Q8HR DEIDRA Administration Protocol Vancomycin HCl 1,500 mg/ 530 mls @ 333.333 mls/hr 12/11/18 00:00 Sodium Chloride IV Q18H PENDING SALE TO [facility] Ibuprofen 600 mg 12/08/18 20:16 Ibuprofen PO Q6H PRN Pain, Mild (1-3) Insulin Human Lispro 0 unit 12/08/18 22:00 12/10/18 11:53 Humalog SUB-Q 4 unit ACHS DEIDRA Administration Protocol Magnesium Hydroxide 30 ml 12/10/18 11:03 12/10/18 11:54 Milk Of Magnesia PO 30 ml QDAY PRN Administration Constipation Methylprednisolone Sodium Succinate 80 mg 12/08/18 22:00 12/10/18 13:03 Solu-Medrol IV 80 mg Q8HR DEIDRA Administration Metolazone 5 mg 12/10/18 13:00 12/10/18 13:06 Zaroxolyn PO 5 mg QDAY DEIDRA Administration Metoprolol Tartrate 50 mg 12/08/18 22:00 12/10/18 09:04 Lopressor PO 50 mg BID DEIDRA Administration Multivitamins/Iron 1 each 12/09/18 11:00 12/10/18 09:06 Hemocyte Plus PO 1 each QDAY DEIDRA Administration Ondansetron HCl 4 mg 12/08/18 20:16 Zofran IV Q8H PRN Nausea And Vomiting Sodium Chloride 10 ml 12/08/18 22:00 12/10/18 09:05 Sodium Chloride Flush Syringe 10 Ml IV 10 ml BID DEIDRA Administration Sodium Chloride 10 ml 12/08/18 20:16 12/09/18 22:40 Sodium Chloride Flush Syringe 10 Ml IV 10 ml PRN PRN Administration LINE FLUSH Spironolactone 25 mg 12/10/18 13:00 12/10/18 13:03 Aldactone PO 25 mg QDAY DEIDRA Administration
[2018-12-10] MEDS: VANCOMYCIN 1,500 MG in NACL 0.9% 500 ML 500 ML IV SCH (23:12)
[2018-12-11] MEDS: LASIX IV SCH ×2 (05:07→17:04)
[2018-12-11] MEDS: SOLU-Medrol IV SCH ×3 (05:07→23:23)
[2018-12-11] MEDS: MAXIPIME/NS 1 GM/100 ML 1 GM/100 ML BAG IV SCH ×2 (05:08→13:42)
[2018-12-11 05:27] LABS: Hematocrit 29.5 % (35.5-45.6); Hemoglobin 9.8 gm/dl (11.8-15.2); Mean Corpuscular HGB Conc 33 % (32-34); Mean Corpuscular Volume 86 fl (84-94); Platelet Count 451 K/mm3 (140-440); Red Blood Count 3.41 M/mm3 (3.65-5.03)
[2018-12-11 05:43] LABS: BUN/Creatinine Ratio 23; Blood Urea Nitrogen 14 mg/dL (9-20); Calcium 8.6 mg/dL (8.4-10.2); Hemolysis Index 4
[2018-12-11] MEDS: HumaLOG SUB-Q SCH ×3 (07:32→17:04)
[2018-12-11] MEDS: AMARYL PO SCH (07:32)
[2018-12-11 08:17] LABS: Anisocytosis 1+; Basophils % (Manual) 0 % (0.0-1.8); Eosinophils % (Manual) 0 % (0.0-4.3); Platelet Estimate Consistent w Auto; Total Cells Counted 100; Toxic Granulation 2+
--- NOTE | 2018-12-11 09:08 | Ultrasound Report ---
ULTRASOUND CHEST HISTORY: Bilateral pleural effusions FINDINGS: Targeted transabdominal grayscale ultrasound was performed on both sides of the chest. The images demonstrate small to moderate bilateral pleural fluid collections measuring 564 cc on the righ t and 463 cc on the left. IMPRESSION: Bilateral pleural effusions as described. Signer Name: Mj Dhaliwal Jr, MD Signed: 12/11/2018 9:04 AM Workstation Name: [id number]
[2018-12-11] MEDS: PEPCID PO SCH ×2 (09:30→23:25)
[2018-12-11] MEDS: HALFPRIN EC PO SCH (09:30)
[2018-12-11] MEDS: HEMOCYTE PLUS PO SCH (09:30)
[2018-12-11] MEDS: SODIUM CHLORIDE FLUSH SYRINGE 10 ML IV SCH (09:31)
[2018-12-11] MEDS: ZAROXOLYN PO SCH (09:31)
[2018-12-11] MEDS: LOPRESSOR PO SCH (09:31)
[2018-12-11] MEDS: ALDACTONE PO SCH (09:33)
[2018-12-11] MEDS: CORDARONE PO SCH (10:18)
[2018-12-11] MEDS: VITAMIN C PO SCH ×2 (10:18→15:52)
--- NOTE | 2018-12-11 10:33 | Progress Note ---
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 Recommendations: Followup chest x-ray. Medical therapy for heart failure and paroxysmal afib. Fluid/salt restriction. Right left heart catheterization, schedule for Friday. Subjective Date of service: 12/11/18 Interval history: Patient has no complaints. Objective Vital Signs Temp Pulse Pulse Resp Resp BP Pulse Ox 12/11/18 09:31 97 H 138/114 12/11/18 07:17 97.9 F 83 20 137/74 97 12/11/18 02:33 97.6 F 80 20 130/72 96 12/10/18 22:00 18 98 12/10/18 20:46 94 H 12/10/18 20:02 98 12/10/18 20:00 72 18 12/10/18 19:51 98.5 F 94 H 20 144/71 97 12/10/18 16:48 99 H 18 12/10/18 16:38 96 H 18 12/10/18 13:41 97.9 F 90 20 102/62 98 12/10/18 13:03 91 H 139/79 - Physical Examination General: No Apparent Distress HEENT: Positive: PERRL Neck: Positive: trachea midline Cardiac: Positive: Reg Rate and Rhythm Lungs: Positive: Decreased Breath Sounds Neuro: Positive: Grossly Intact Extremities: Absent: edema - Labs and Meds CBC 12/11/18 Range/Units 04:47 WBC 17.3 H (4.5-11.0) K/mm3 RBC 3.41 L (3.65-5.03) M/mm3 Hgb 9.8 L (11.8-15.2) gm/dl Hct 29.5 L (35.5-45.6) % Plt Count 451 H (140-440) K/mm3 Comprehensive Metabolic Panel 12/11/18 Range/Units 04:47 Sodium 133 L (137-145) mmol/L Potassium 4.1 (3.6-5.0) mmol/L Chloride 89.6 L (98-107) mmol/L Carbon Dioxide 31 H (22-30) mmol/L BUN 14 (9-20) mg/dL Creatinine 0.6 L (0.8-1.5) mg/dL Glucose 218 H (75-100) mg/dL Calcium 8.6 (8.4-10.2) mg/dL
--- NOTE | 2018-12-11 13:06 | Progress Note ---
Assessment and Plan -Acute hypoxic respiratory failure -Bilateral infiltrates, being treated as HAP -COPD-AE -Bilateral pleural effusions -Congestive heart failure -Diabetes mellitus type 2 -A.fib/flutter Subjective Date of service: 12/11/18 Interval history: Patient is seen today for: Seen and examined at bedside; 24hour events reviewed; nursing and respiratory care staff consulted; no adverse overnight events reported to me; Objective Vital Signs - 12hr 12/11/18 12/11/18 12/11/18 02:33 07:17 09:31 Temperature 97.6 F 97.9 F Pulse Rate 80 83 97 H Respiratory 20 20 Rate Blood Pressure 130/72 137/74 138/114 O2 Sat by Pulse 96 97 Oximetry 12/11/18 10:00 Temperature Pulse Rate 76 Respiratory 20 Rate Blood Pressure O2 Sat by Pulse 98 Oximetry Constitutional: no acute distress, alert Eyes: non-icteric ENT: oropharynx moist Neck: supple, no lymphadenopathy, no JVD Effort: normal Ascultation: Bilateral: diminished breath sounds Cardiovascular: regular rate and rhythm Gastrointestinal: normoactive bowel sounds, soft, non-tender Integumentary: normal Extremities: no cyanosis, no edema Neurologic: normal mental status, non-focal exam, pupils equal and round Psychiatric: mood appropriate, affect normal CBC and BMP: 12/11/18 04:47 12/11/18 04:47 ABG, PT/INR, D-dimer: ABG POC ABG pH 7.415 (7.35-7.45) 12/08/18 10:07 POC ABG pCO2 37.1 (35-45) 12/08/18 10:07 POC ABG pO2 70 (80-105) L 12/08/18 10:07 POC ABG HCO3 23.8 (22-26 mml/L) 12/08/18 10:07 POC ABG Total CO2 25 (23-27mmol/L) 12/08/18 10:07 POC ABG O2 Sat 94 12/08/18 10:07 PT/INR, D-dimer PT 18.7 Sec. (12.2-14.9) H 12/08/18 09:31 INR 1.60 (0.87-1.13) H 12/08/18 09:31 Abnormal lab findings: Abnormal Labs 12/08/18 12/08/18 12/08/18 09:31 09:31 09:31 WBC 16.4 H RBC 3.32 L Hgb 9.7 L Hct 29.1 L RDW 15.6 H Plt Count Lymph % (Auto) 5.4 L [place] % (Auto) Lymph # 0.9 L [place] # 0.9 H Seg Neutrophils % 88.9 H Seg Neuts % (Manual) Lymphocytes % (Manual) Nucleated RBC % Seg Neutrophils # 14.6 H Seg Neutrophils # Man Lymphocytes # (Manual) PT INR POC ABG pO2 Sodium 132 L Chloride 96.1 L Carbon Dioxide BUN Creatinine 0.7 L Glucose 186 H POC Glucose Lactic Acid 2.50 H* Iron TIBC Total Creatine Kinase CK-MB (CK-2) NT-Pro-B Natriuret Pep Albumin Vitamin B12 12/08/18 12/08/18 12/08/18 09:31 09:31 09:31 WBC RBC Hgb Hct RDW Plt Count Lymph % (Auto) [place] % (Auto) Lymph # [place] # Seg Neutrophils % Seg Neuts % (Manual) Lymphocytes % (Manual) Nucleated RBC % Seg Neutrophils # Seg Neutrophils # Man Lymphocytes # (Manual) PT 18.7 H INR 1.60 H POC ABG pO2 Sodium Chloride Carbon Dioxide BUN Creatinine Glucose POC Glucose Lactic Acid Iron TIBC Total Creatine Kinase 185 H CK-MB (CK-2) 4.1 H NT-Pro-B Natriuret Pep 4456 H Albumin 3.7 L Vitamin B12 12/08/18 12/08/18 12/08/18 10:07 10:45 20:35 WBC RBC Hgb Hct RDW Plt Count Lymph % (Auto) [place] % (Auto) Lymph # [place] # Seg Neutrophils % Seg Neuts % (Manual) Lymphocytes % (Manual) Nucleated RBC % Seg Neutrophils # Seg Neutrophils # Man Lymphocytes # (Manual) PT INR POC ABG pO2 70 L Sodium Chloride Carbon Dioxide BUN Creatinine Glucose POC Glucose Lactic Acid 2.30 H* Iron 21 L TIBC 242 L Total Creatine Kinase CK-MB (CK-2) NT-Pro-B Natriuret Pep Albumin Vitamin B12 12/08/18 12/09/18 12/09/18 20:35 06:54 06:54 WBC 12.2 H RBC 3.28 L Hgb 9.4 L Hct 28.9 L RDW 16.3 H Plt Count Lymph % (Auto) 12.0 L [place] % (Auto) 8.4 H Lymph # [place] # 1.0 H Seg Neutrophils % 77.7 H Seg Neuts % (Manual) Lymphocytes % (Manual) Nucleated RBC % Seg Neutrophils # 9.5 H Seg Neutrophils # Man Lymphocytes # (Manual) PT INR POC ABG pO2 Sodium 132 L Chloride 93.8 L Carbon Dioxide BUN 6 L Creatinine 0.5 L Glucose 107 H POC Glucose Lactic Acid Iron TIBC Total Creatine Kinase CK-MB (CK-2) NT-Pro-B Natriuret Pep Albumin 3.6 L Vitamin B12 1587 H 12/09/18 12/09/18 12/09/18 08:16 11:38 16:39 WBC RBC Hgb Hct RDW Plt Count Lymph % (Auto) [place] % (Auto) Lymph # [place] # Seg Neutrophils % Seg Neuts % (Manual) Lymphocytes % (Manual) Nucleated RBC % Seg Neutrophils # Seg Neutrophils # Man Lymphocytes # (Manual) PT INR POC ABG pO2 Sodium Chloride Carbon Dioxide BUN Creatinine Glucose POC Glucose 108 H 143 H 187 H Lactic Acid Iron TIBC Total Creatine Kinase CK-MB (CK-2) NT-Pro-B Natriuret Pep Albumin Vitamin B12 12/09/18 12/10/18 12/10/18 22:26 07:48 11:28 WBC RBC Hgb Hct RDW Plt Count Lymph % (Auto) [place] % (Auto) Lymph # [place] # Seg Neutrophils % Seg Neuts % (Manual) Lymphocytes % (Manual) Nucleated RBC % Seg Neutrophils # Seg Neutrophils # Man Lymphocytes # (Manual) PT INR POC ABG pO2 Sodium Chloride Carbon Dioxide BUN Creatinine Glucose POC Glucose 244 H 197 H 267 H Lactic Acid Iron TIBC Total Creatine Kinase CK-MB (CK-2) NT-Pro-B Natriuret Pep Albumin Vitamin B12 12/10/18 12/10/18 12/11/18 16:28 22:01 04:47 WBC 17.3 H RBC 3.41 L Hgb 9.8 L Hct 29.5 L RDW 16.0 H Plt Count 451 H Lymph % (Auto) [place] % (Auto) Lymph # [place] # Seg Neutrophils % Seg Neuts % (Manual) 93.0 H Lymphocytes % (Manual) 4.0 L Nucleated RBC % 1.0 H Seg Neutrophils # Seg Neutrophils # Man 16.1 H Lymphocytes # (Manual) 0.7 L PT INR POC ABG pO2 Sodium Chloride Carbon Dioxide BUN Creatinine Glucose POC Glucose 227 H 249 H Lactic Acid Iron TIBC Total Creatine Kinase CK-MB (CK-2) NT-Pro-B Natriuret Pep Albumin Vitamin B12 12/11/18 12/11/18 12/11/18 04:47 07:24 11:34 WBC RBC Hgb Hct RDW Plt Count Lymph % (Auto) [place] % (Auto) Lymph # [place] # Seg Neutrophils % Seg Neuts % (Manual) Lymphocytes % (Manual) Nucleated RBC % Seg Neutrophils # Seg Neutrophils # Man Lymphocytes # (Manual) PT INR POC ABG pO2 Sodium 133 L Chloride 89.6 L Carbon Dioxide 31 H BUN Creatinine 0.6 L Glucose 218 H POC Glucose 206 H 206 H Lactic Acid Iron TIBC Total Creatine Kinase CK-MB (CK-2) NT-Pro-B Natriuret Pep Albumin Vitamin B12
--- NOTE | 2018-12-11 15:02 | Progress Note ---
Assessment and Plan Assessment and plan: Acute hypoxic respiratory failure, COPD exacerbation - Patient is on IV Solu-Medrol, duo nebs, nebulizer treatments, oxygen support, continue antibiotics Bilateral pleural effusion - Chest ultrasound was done - Pulmonary consulted Sepsis secondary to Bilateral pneumonia -Patient is on IV vancomycin and cefepime - Infectious disease following History of PE - Continue eliquis Paroxysmal atrial flutter - Controlled, continue eliquis Cardiomyopathy, chronic systolic CHF with acute exacerbation - Patient is on IV Lasix - Cardiology consulted and recommend to continue diurese the patient and right and left heart cath on Friday DVT prophylaxis Disposition; continue inpatient care History Interval history: Patient was seen and evaluated this morning, patient's SOB is getting better. Hospitalist Physical - Physical exam Narrative exam: Patient is in moderate respiratory distress. The patient appeared well nourished and normally developed. Vital signs as documented. Head exam is unremarkable. No scleral icterus . Neck is without jugular venous distension, thyromegaly, or carotid bruits. Lung decrease air entry bilaterally. Cardiac exam reveals irregular rate and Rhythm. Abdominal exam reveals normal bowel sounds, no masses, no organomegaly and no aortic enlargement. Extremities are nonedematous and both femoral and pedal pulses are normal. 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 No focal weakness. - Constitutional Vitals: Temp Pulse Resp BP Pulse Ox 97.8 F 56 L 20 115/49 99 12/11/18 13:41 12/11/18 13:41 12/11/18 13:41 12/11/18 13:41 12/11/18 13:41 General appearance: Present: no acute distress Results - Labs CBC & Chem 7: 12/11/18 04:47 12/11/18 04:47 Labs: Laboratory Last Values WBC 17.3 K/mm3 (4.5-11.0) H 12/11/18 04:47 RBC 3.41 M/mm3 (3.65-5.03) L 12/11/18 04:47 Hgb 9.8 gm/dl (11.8-15.2) L 12/11/18 04:47 Hct 29.5 % (35.5-45.6) L 12/11/18 04:47 MCV 86 fl (84-94) 12/11/18 04:47 MCH 29 pg (28-32) 12/11/18 04:47 MCHC 33 % (32-34) 12/11/18 04:47 RDW 16.0 % (13.2-15.2) H 12/11/18 04:47 Plt Count 451 K/mm3 (140-440) H 12/11/18 04:47 Lymph % (Auto) 12.0 % (13.4-35.0) L 12/09/18 06:54 [place] % (Auto) 8.4 % (0.0-7.3) H 12/09/18 06:54 Eos % (Auto) 1.6 % (0.0-4.3) 12/09/18 06:54 Baso % (Auto) 0.3 % (0.0-1.8) 12/09/18 06:54 Lymph # 1.5 K/mm3 (1.2-5.4) 12/09/18 06:54 [place] # 1.0 K/mm3 (0.0-0.8) H 12/09/18 06:54 Eos # 0.2 K/mm3 (0.0-0.4) 12/09/18 06:54 Baso # 0.0 K/mm3 (0.0-0.1) 12/09/18 06:54 Add Manual Diff Complete 12/11/18 04:47 Total Counted 100 12/11/18 04:47 Seg Neutrophils % Washer Operator 12/11/18 04:47 Seg Neuts % (Manual) 93.0 % (40.0-70.0) H 12/11/18 04:47 0 % 12/11/18 04:47 4.0 % (13.4-35.0) L 12/11/18 04:47 Reactive Lymphs % (Man) 0 % 12/11/18 04:47 3.0 % (0.0-7.3) 12/11/18 04:47 0 % (0.0-4.3) 12/11/18 04:47 0 % (0.0-1.8) 12/11/18 04:47 0 % 12/11/18 04:47 0 % 12/11/18 04:47 0 % 12/11/18 04:47 0 % 12/11/18 04:47 Nucleated RBC % 1.0 % (0.0-0.9) H 12/11/18 04:47 Seg Neutrophils # 9.5 K/mm3 (1.8-7.7) H 12/09/18 06:54 Seg Neutrophils # Man 16.1 K/mm3 (1.8-7.7) H 12/11/18 04:47 Band Neutrophils # 0.0 K/mm3 12/11/18 04:47 0.7 K/mm3 (1.2-5.4) L 12/11/18 04:47 Abs React Lymphs (Man) 0.0 K/mm3 12/11/18 04:47 0.5 K/mm3 (0.0-0.8) 12/11/18 04:47 0.0 K/mm3 (0.0-0.4) 12/11/18 04:47 0.0 K/mm3 (0.0-0.1) 12/11/18 04:47 0.0 K/mm3 12/11/18 04:47 0.0 K/mm3 12/11/18 04:47 0.0 K/mm3 12/11/18 04:47 Blast Cells # 0.0 K/mm3 12/11/18 04:47 WBC Morphology Not Reportable 12/11/18 04:47 Hypersegmented Neuts Not Reportable 12/11/18 04:47 Hyposegmented Neuts Not Reportable 12/11/18 04:47 Hypogranular Neuts Not Reportable 12/11/18 04:47 Not Reportable 12/11/18 04:47 2+ 12/11/18 04:47 Not Reportable 12/11/18 04:47 Not Reportable 12/11/18 04:47 Not Reportable 12/11/18 04:47 Not Reportable 12/11/18 04:47 Consistent w auto 12/11/18 04:47 Not Reportable 12/11/18 04:47 Plt Clumps, EDTA Not Reportable 12/11/18 04:47 Not Reportable 12/11/18 04:47 Not Reportable 12/11/18 04:47 Not Reportable 12/11/18 04:47 Plt Morphology Comment Not Reportable 12/11/18 04:47 RBC Morphology Not Reportable 12/11/18 04:47 Dimorphic RBCs Not Reportable 12/11/18 04:47 Not Reportable 12/11/18 04:47 Not Reportable 12/11/18 04:47 Not Reportable 12/11/18 04:47 1+ 12/11/18 04:47 Not Reportable 12/11/18 04:47 Not Reportable 12/11/18 04:47 Not Reportable 12/11/18 04:47 Not Reportable 12/11/18 04:47 Not Reportable 12/11/18 04:47 Not Reportable 12/11/18 04:47 Not Reportable 12/11/18 04:47 Not Reportable 12/11/18 04:47 Not Reportable 12/11/18 04:47 Not Reportable 12/11/18 04:47 Not Reportable 12/11/18 04:47 Not Reportable 12/11/18 04:47 Not Reportable 12/11/18 04:47 Not Reportable 12/11/18 04:47 Not Reportable 12/11/18 04:47 Acanthocytes (Spur) Not Reportable 12/11/18 04:47 Rouleaux Not Reportable 12/11/18 04:47 Not Reportable 12/11/18 04:47 Not Reportable 12/11/18 04:47 Not Reportable 12/11/18 04:47 Not Reportable 12/11/18 04:47 Hem Pathologist Commnt No 12/11/18 04:47 PT 18.7 Sec. (12.2-14.9) H 12/08/18 09:31 INR 1.60 (0.87-1.13) H 12/08/18 09:31 APTT 34.5 Sec. (24.2-36.6) 12/08/18 09:31 POC ABG pH 7.415 (7.35-7.45) 12/08/18 10:07 POC ABG pCO2 37.1 (35-45) 12/08/18 10:07 POC ABG pO2 70 (80-105) L 12/08/18 10:07 POC ABG HCO3 23.8 (22-26 mml/L) 12/08/18 10:07 POC ABG Total CO2 25 (23-27mmol/L) 12/08/18 10:07 POC ABG O2 Sat 94 12/08/18 10:07 POC ABG Base Excess -1 ((-2) - (+3)mmol/L) 12/08/18 10:07 32 % 12/08/18 10:07 Sodium 133 mmol/L (137-145) L 12/11/18 04:47 Potassium 4.1 mmol/L (3.6-5.0) 12/11/18 04:47 Chloride 89.6 mmol/L (98-107) L 12/11/18 04:47 Carbon Dioxide 31 mmol/L (22-30) H 12/11/18 04:47 17 mmol/L 12/11/18 04:47 BUN 14 mg/dL (9-20) 12/11/18 04:47 0.6 mg/dL (0.8-1.5) L 12/11/18 04:47 Estimated GFR > 60 ml/min 12/11/18 04:47 23 % 12/11/18 04:47 Glucose 218 mg/dL (75-100) H 12/11/18 04:47 POC Glucose 206 (70-105) H 12/11/18 11:34 5.2 % (4-6) 12/08/18 20:35 Lactic Acid 1.30 mmol/L (0.7-2.0) 12/08/18 11:56 Calcium 8.6 mg/dL (8.4-10.2) 12/11/18 04:47 Magnesium 1.80 mg/dL (1.7-2.3) 12/08/18 09:31 Iron 21 ug/dL (49-181) L 12/08/18 20:35 TIBC 242 mcg/dL (250-450) L 12/08/18 20:35 % Saturation 8.68 % 12/08/18 20:35 199 mg/dl (180-329) 12/08/18 20:35 0.40 mg/dL (0.1-1.2) 12/09/18 06:54 < 0.2 mg/dL (0-0.2) 12/08/18 09:31 0.2 mg/dL 12/08/18 09:31 AST 15 units/L (5-40) 12/09/18 06:54 ALT 14 units/L (7-56) 12/09/18 06:54 51 units/L (35-129) 12/09/18 06:54 185 units/L (55-170) H 12/08/18 09:31 CK-MB (CK-2) 4.1 ng/mL (0.0-4.0) H 12/08/18 09:31 CK-MB (CK-2) Rel Index 2.2 (0-4) 12/08/18 09:31 < 0.010 ng/mL (0.00-0.029) 12/08/18 09:31 NT-Pro-B Natriuret Pep 4456 pg/mL (0-900) H 12/08/18 09:31 6.7 g/dL (6.3-8.2) 12/09/18 06:54 3.6 g/dL (3.9-5) L 12/09/18 06:54 1.2 % 12/09/18 06:54 Vitamin B12 1587 pg/mL (211-911) H 12/08/18 20:35 Dark yellow (Yellow) 12/08/18 17:22 Cloudy (Clear) 12/08/18 17:22 5.0 (5.0-7.0) 12/08/18 17:22 Ur Specific [place] 1.013 (1.003-1.030) 12/08/18 17:22 <15 mg/dl mg/dL (Negative) 12/08/18 17:22 Neg mg/dL (Negative) 12/08/18 17:22 Neg mg/dL (Negative) 12/08/18 17:22 Neg (Negative) 12/08/18 17:22 Neg (Negative) 12/08/18 17:22 Neg (Negative) 12/08/18 17:22 < 2.0 mg/dL (<2.0) 12/08/18 17:22 Ur Leukocyte Esterase Neg (Negative) 12/08/18 17:22 1.0 /HPF (0.0-6.0) 12/08/18 17:22 4.0 /HPF (0.0-6.0) 12/08/18 17:22 U Epithel Cells (Auto) < 1.0 /HPF (0-13.0) 12/08/18 17:22 Few /HPF 12/08/18 17:22 Active Medications - Current Medications Current Medications: Generic Name Dose Route Start Last Admin Trade Name Freq PRN Reason Stop Dose Admin Acetaminophen 650 mg 12/08/18 20:16 Tylenol PO Q4H PRN Pain MILD(1-3)/Fever >100.5/DUCKWORTH Albuterol 2.5 mg 12/08/18 20:19 12/08/18 22:13 Proventil IH 2.5 mg Q4HRT PRN Administration Shortness Of Breath Albuterol/Ipratropium 1 ampul 12/09/18 08:00 12/10/18 19:58 Duoneb *Not For Prn Use* IH 1 ampul QIDRT DEIDRA Administration Amiodarone HCl 200 mg 12/08/18 20:00 12/10/18 09:05 Cordarone PO 200 mg DAILY DEIDRA Administration Ascorbic Acid 500 mg 12/08/18 20:00 12/10/18 09:03 Vitamin C PO 500 mg QDAY DEIDRA Administration Aspirin 81 mg 12/09/18 10:00 12/11/18 09:30 Halfprin Ec PO 81 mg QDAY DEIDRA Administration Famotidine 20 mg 12/08/18 22:00 12/11/18 09:30 Pepcid PO 20 mg BID DEIDRA Administration Furosemide 40 mg 12/09/18 18:00 12/11/18 05:07 Lasix IV 40 mg 0600,1800 DEIDRA Administration Glimepiride 4 mg 12/08/18 20:00 12/11/18 07:32 Amaryl PO 4 mg QAMDIAB DEIDRA Administration Hydromorphone HCl 0.5 mg 12/08/18 20:16 Dilaudid IV Q3H PRN Pain , Severe (7-10) Cefepime HCl 1 gm in 100 mls @ 200 mls/hr 12/09/18 14:00 12/11/18 13:42 Maxipime/Ns 1 Gm/100 Ml IV 200 mls/hr Q8HR DEIDRA Administration Protocol Vancomycin HCl 1,500 mg/ 530 mls @ 333.333 mls/hr 12/11/18 00:00 12/10/18 23:12 Sodium Chloride IV 333.333 mls/hr Q18H DEIDRA Administration Ibuprofen 600 mg 12/08/18 20:16 Ibuprofen PO Q6H PRN Pain, Mild (1-3) Insulin Human Lispro 0 unit 12/08/18 22:00 12/11/18 11:53 Humalog SUB-Q 3 unit ACHS DEIDRA Administration Protocol Magnesium Hydroxide 30 ml 12/10/18 11:03 12/10/18 11:54 Milk Of Magnesia PO 30 ml QDAY PRN Administration Constipation Methylprednisolone Sodium Succinate 80 mg 12/08/18 22:00 12/11/18 13:42 Solu-Medrol IV 80 mg Q8HR DEIDRA Administration Metolazone 5 mg 12/10/18 13:00 12/11/18 09:31 Zaroxolyn PO 5 mg QDAY DEIDRA Administration Metoprolol Tartrate 50 mg 12/08/18 22:00 12/11/18 09:31 Lopressor PO 50 mg BID DEIDRA Administration Multivitamins/Iron 1 each 12/09/18 11:00 12/11/18 09:30 Hemocyte Plus PO 1 each QDAY DEIDRA Administration Ondansetron HCl 4 mg 12/08/18 20:16 Zofran IV Q8H PRN Nausea And Vomiting Sodium Chloride 10 ml 12/08/18 22:00 12/11/18 09:31 Sodium Chloride Flush Syringe 10 Ml IV 10 ml BID DEIDRA Administration Sodium Chloride 10 ml 12/08/18 20:16 12/09/18 22:40 Sodium Chloride Flush Syringe 10 Ml IV 10 ml PRN PRN Administration LINE FLUSH Spironolactone 25 mg 12/10/18 13:00 12/11/18 09:33 Aldactone PO 25 mg QDAY DEIDRA Administration
[2018-12-11] MEDS: VANCOMYCIN 1,500 MG in NACL 0.9% 500 ML 500 ML IV SCH (17:07)
--- NOTE | 2018-12-11 18:32 | Progress Note ---
Assessment and Plan Cultures: 12/08/2018 blood culture: no growth 12/08/2018 nasal MRSA culture: neg 12/09/2018 sputum poor specimen A/P: 78-year-old male with hypertension, CHF, diabetes mellitus presented to the hospital yesterday with shortness of breath and cough present for the last 1 week. Note, he was recently hospitalized at [facility] from his cardiology clinic where he was noted to be in atrial flutter with rapid ventricular rate. He was started on IV amiodarone and then converted to oral amiodarone when he converted to sinus rhythm. Was discharged from the hospital on 12/06/2018. Admitted with: 1) Bilateral pneumonia, acute respiratory failure: No fever, does have neutrophilic leukocytosis. Differential includes hospital-acquired pneumonia versus ? Amiodarone toxicity given recent initiation of amiodarone. Repeat CXR cris pulmonary edema. Chest US cris effusion. 2) Congestive heart failure 3) Diabetes mellitus type 2 4) A.fib/flutter: On amiodarone and anticoagulation with Eliquis. Recs: continue cefepime D3 of 5 stop vancomycin - MRSA PCR neg monitor leukocytosis - elevated from steroids Elizabeth Mendoza Subjective Date of service: 12/11/18 Objective - Constitutional Vitals: Vital Signs Temp Pulse Resp BP Pulse Ox 97.8 F 56 L 20 115/49 99 12/11/18 13:41 12/11/18 13:41 12/11/18 13:41 12/11/18 13:41 12/11/18 13:41 Temperature -Last 24 Hours Temperature 97.8 F Temperature 97.9 F Temperature 97.6 F Temperature 98.5 F - Labs CBC & Chem 7: 12/11/18 04:47 12/11/18 04:47 Labs: Abnormal lab results 12/10/18 12/11/18 12/11/18 Range/Units 22:01 04:47 04:47 WBC 17.3 H (4.5-11.0) K/mm3 RBC 3.41 L (3.65-5.03) M/mm3 Hgb 9.8 L (11.8-15.2) gm/dl Hct 29.5 L (35.5-45.6) % RDW 16.0 H (13.2-15.2) % Plt Count 451 H (140-440) K/mm3 Seg Neuts % (Manual) 93.0 H (40.0-70.0) % Lymphocytes % (Manual) 4.0 L (13.4-35.0) % Nucleated RBC % 1.0 H (0.0-0.9) % Seg Neutrophils # Man 16.1 H (1.8-7.7) K/mm3 Lymphocytes # (Manual) 0.7 L (1.2-5.4) K/mm3 Sodium 133 L (137-145) mmol/L Chloride 89.6 L (98-107) mmol/L Carbon Dioxide 31 H (22-30) mmol/L Creatinine 0.6 L (0.8-1.5) mg/dL Glucose 218 H (75-100) mg/dL POC Glucose 249 H (70-105) 12/11/18 12/11/18 12/11/18 Range/Units 07:24 11:34 16:29 WBC (4.5-11.0) K/mm3 RBC (3.65-5.03) M/mm3 Hgb (11.8-15.2) gm/dl Hct (35.5-45.6) % RDW (13.2-15.2) % Plt Count (140-440) K/mm3 Seg Neuts % (Manual) (40.0-70.0) % Lymphocytes % (Manual) (13.4-35.0) % Nucleated RBC % (0.0-0.9) % Seg Neutrophils # Man (1.8-7.7) K/mm3 Lymphocytes # (Manual) (1.2-5.4) K/mm3 Sodium (137-145) mmol/L Chloride (98-107) mmol/L Carbon Dioxide (22-30) mmol/L Creatinine (0.8-1.5) mg/dL Glucose (75-100) mg/dL POC Glucose 206 H 206 H 344 H (70-105)
[2018-12-11] MEDS: DUONEB *Not for PRN Use IH SCH ×4 (19:58→20:15)
--- NOTE | 2018-12-12 07:11 | Progress Note ---
Assessment and Plan -Acute hypoxic respiratory failure -Bilateral infiltrates, being treated as HAP -COPD-AE -Bilateral pleural effusions -Congestive heart failure -Diabetes mellitus type 2 -A.fib/flutter Subjective Date of service: 12/12/18 Interval history: Patient is seen today for: Seen and examined at bedside; 24hour events reviewed; nursing and respiratory care staff consulted; no adverse overnight events reported to me; Objective Vital Signs - 12hr 12/11/18 12/11/18 12/11/18 19:38 20:10 20:11 Temperature 98.3 F Pulse Rate 79 Pulse Rate [ 77 Anterior Bilateral Throughout] Respiratory 18 Rate Respiratory 18 Rate [Anterior Bilateral Throughout] Blood Pressure 136/63 O2 Sat by Pulse 98 99 Oximetry 12/12/18 02:05 Temperature 97.7 F Pulse Rate 74 Pulse Rate [ Anterior Bilateral Throughout] Respiratory 18 Rate Respiratory Rate [Anterior Bilateral Throughout] Blood Pressure 151/71 O2 Sat by Pulse 99 Oximetry Constitutional: no acute distress, alert Eyes: non-icteric ENT: oropharynx moist Neck: supple, no lymphadenopathy, no JVD Effort: normal Ascultation: Bilateral: diminished breath sounds Cardiovascular: regular rate and rhythm Gastrointestinal: normoactive bowel sounds, soft, non-tender Integumentary: normal Extremities: no cyanosis, no edema Neurologic: normal mental status, non-focal exam, pupils equal and round Psychiatric: mood appropriate, affect normal CBC and BMP: 12/11/18 04:47 12/11/18 04:47 ABG, PT/INR, D-dimer: ABG POC ABG pH 7.415 (7.35-7.45) 12/08/18 10:07 POC ABG pCO2 37.1 (35-45) 12/08/18 10:07 POC ABG pO2 70 (80-105) L 12/08/18 10:07 POC ABG HCO3 23.8 (22-26 mml/L) 12/08/18 10:07 POC ABG Total CO2 25 (23-27mmol/L) 12/08/18 10:07 POC ABG O2 Sat 94 12/08/18 10:07 PT/INR, D-dimer PT 18.7 Sec. (12.2-14.9) H 12/08/18 09:31 INR 1.60 (0.87-1.13) H 12/08/18 09:31 Abnormal lab findings: Abnormal Labs 12/08/18 12/08/18 12/08/18 09:31 09:31 09:31 WBC 16.4 H RBC 3.32 L Hgb 9.7 L Hct 29.1 L RDW 15.6 H Plt Count Lymph % (Auto) 5.4 L [place] % (Auto) Lymph # 0.9 L [place] # 0.9 H Seg Neutrophils % 88.9 H Seg Neuts % (Manual) Lymphocytes % (Manual) Nucleated RBC % Seg Neutrophils # 14.6 H Seg Neutrophils # Man Lymphocytes # (Manual) PT INR POC ABG pO2 Sodium 132 L Chloride 96.1 L Carbon Dioxide BUN Creatinine 0.7 L Glucose 186 H POC Glucose Lactic Acid 2.50 H* Iron TIBC Total Creatine Kinase CK-MB (CK-2) NT-Pro-B Natriuret Pep Albumin Vitamin B12 Vancomycin Trough 12/08/18 12/08/18 12/08/18 09:31 09:31 09:31 WBC RBC Hgb Hct RDW Plt Count Lymph % (Auto) [place] % (Auto) Lymph # [place] # Seg Neutrophils % Seg Neuts % (Manual) Lymphocytes % (Manual) Nucleated RBC % Seg Neutrophils # Seg Neutrophils # Man Lymphocytes # (Manual) PT 18.7 H INR 1.60 H POC ABG pO2 Sodium Chloride Carbon Dioxide BUN Creatinine Glucose POC Glucose Lactic Acid Iron TIBC Total Creatine Kinase 185 H CK-MB (CK-2) 4.1 H NT-Pro-B Natriuret Pep 4456 H Albumin 3.7 L Vitamin B12 Vancomycin Trough 12/08/18 12/08/18 12/08/18 10:07 10:45 20:35 WBC RBC Hgb Hct RDW Plt Count Lymph % (Auto) [place] % (Auto) Lymph # [place] # Seg Neutrophils % Seg Neuts % (Manual) Lymphocytes % (Manual) Nucleated RBC % Seg Neutrophils # Seg Neutrophils # Man Lymphocytes # (Manual) PT INR POC ABG pO2 70 L Sodium Chloride Carbon Dioxide BUN Creatinine Glucose POC Glucose Lactic Acid 2.30 H* Iron 21 L TIBC 242 L Total Creatine Kinase CK-MB (CK-2) NT-Pro-B Natriuret Pep Albumin Vitamin B12 Vancomycin Trough 12/08/18 12/09/18 12/09/18 20:35 06:54 06:54 WBC 12.2 H RBC 3.28 L Hgb 9.4 L Hct 28.9 L RDW 16.3 H Plt Count Lymph % (Auto) 12.0 L [place] % (Auto) 8.4 H Lymph # [place] # 1.0 H Seg Neutrophils % 77.7 H Seg Neuts % (Manual) Lymphocytes % (Manual) Nucleated RBC % Seg Neutrophils # 9.5 H Seg Neutrophils # Man Lymphocytes # (Manual) PT INR POC ABG pO2 Sodium 132 L Chloride 93.8 L Carbon Dioxide BUN 6 L Creatinine 0.5 L Glucose 107 H POC Glucose Lactic Acid Iron TIBC Total Creatine Kinase CK-MB (CK-2) NT-Pro-B Natriuret Pep Albumin 3.6 L Vitamin B12 1587 H Vancomycin Trough 12/09/18 12/09/18 12/09/18 08:16 11:38 16:39 WBC RBC Hgb Hct RDW Plt Count Lymph % (Auto) [place] % (Auto) Lymph # [place] # Seg Neutrophils % Seg Neuts % (Manual) Lymphocytes % (Manual) Nucleated RBC % Seg Neutrophils # Seg Neutrophils # Man Lymphocytes # (Manual) PT INR POC ABG pO2 Sodium Chloride Carbon Dioxide BUN Creatinine Glucose POC Glucose 108 H 143 H 187 H Lactic Acid Iron TIBC Total Creatine Kinase CK-MB (CK-2) NT-Pro-B Natriuret Pep Albumin Vitamin B12 Vancomycin Trough 12/09/18 12/10/18 12/10/18 22:26 07:48 11:28 WBC RBC Hgb Hct RDW Plt Count Lymph % (Auto) [place] % (Auto) Lymph # [place] # Seg Neutrophils % Seg Neuts % (Manual) Lymphocytes % (Manual) Nucleated RBC % Seg Neutrophils # Seg Neutrophils # Man Lymphocytes # (Manual) PT INR POC ABG pO2 Sodium Chloride Carbon Dioxide BUN Creatinine Glucose POC Glucose 244 H 197 H 267 H Lactic Acid Iron TIBC Total Creatine Kinase CK-MB (CK-2) NT-Pro-B Natriuret Pep Albumin Vitamin B12 Vancomycin Trough 12/10/18 12/10/18 12/11/18 16:28 22:01 04:47 WBC 17.3 H RBC 3.41 L Hgb 9.8 L Hct 29.5 L RDW 16.0 H Plt Count 451 H Lymph % (Auto) [place] % (Auto) Lymph # [place] # Seg Neutrophils % Seg Neuts % (Manual) 93.0 H Lymphocytes % (Manual) 4.0 L Nucleated RBC % 1.0 H Seg Neutrophils # Seg Neutrophils # Man 16.1 H Lymphocytes # (Manual) 0.7 L PT INR POC ABG pO2 Sodium Chloride Carbon Dioxide BUN Creatinine Glucose POC Glucose 227 H 249 H Lactic Acid Iron TIBC Total Creatine Kinase CK-MB (CK-2) NT-Pro-B Natriuret Pep Albumin Vitamin B12 Vancomycin Trough 12/11/18 12/11/18 12/11/18 04:47 07:24 11:34 WBC RBC Hgb Hct RDW Plt Count Lymph % (Auto) [place] % (Auto) Lymph # [place] # Seg Neutrophils % Seg Neuts % (Manual) Lymphocytes % (Manual) Nucleated RBC % Seg Neutrophils # Seg Neutrophils # Man Lymphocytes # (Manual) PT INR POC ABG pO2 Sodium 133 L Chloride 89.6 L Carbon Dioxide 31 H BUN Creatinine 0.6 L Glucose 218 H POC Glucose 206 H 206 H Lactic Acid Iron TIBC Total Creatine Kinase CK-MB (CK-2) NT-Pro-B Natriuret Pep Albumin Vitamin B12 Vancomycin Trough 12/11/18 12/11/18 12/11/18 16:29 20:41 21:05 WBC RBC Hgb Hct RDW Plt Count Lymph % (Auto) [place] % (Auto) Lymph # [place] # Seg Neutrophils % Seg Neuts % (Manual) Lymphocytes % (Manual) Nucleated RBC % Seg Neutrophils # Seg Neutrophils # Man Lymphocytes # (Manual) PT INR POC ABG pO2 Sodium Chloride Carbon Dioxide BUN Creatinine Glucose POC Glucose 344 H 440 H Lactic Acid Iron TIBC Total Creatine Kinase CK-MB (CK-2) NT-Pro-B Natriuret Pep Albumin Vitamin B12 Vancomycin Trough 21.1 H
[2018-12-12] MEDS: IBUPROFEN PO PRN (08:13)
--- NOTE | 2018-12-12 08:43 | XRay Report ---
CHEST 1 VIEW INDICATION / CLINICAL INFORMATION: Pulmonary edema, pneumonia. COMPARISON: 12/10/2018 FINDINGS: SUPPORT DEVICES: None. HEART / MEDIASTINUM: No significant abnormality. LUNGS / PLEURA: Bilateral interstitial lung disease shows improvement. No significant effusions. No p neumothorax. ADDITIONAL FINDINGS: No significant additional findings. IMPRESSION: 1. No acute findings. Signer Name: Jef Christy MD Signed: 12/12/2018 8:38 AM Workstation Name: [id number]
[2018-12-12] MEDS: HumaLOG SUB-Q SCH ×4 (08:50→22:49)
[2018-12-12] MEDS: DUONEB *Not for PRN Use IH SCH ×4 (08:57→20:44)
[2018-12-12] MEDS: HEMOCYTE PLUS PO SCH (10:13)
[2018-12-12] MEDS: LOPRESSOR PO SCH ×2 (10:21→22:48)
[2018-12-12] MEDS: MIRALAX 3350 PO SCH (10:21)
[2018-12-12] MEDS: ZAROXOLYN PO SCH (10:21)
[2018-12-12] MEDS: ALDACTONE PO SCH (10:22)
[2018-12-12] MEDS: CORDARONE PO SCH (10:22)
[2018-12-12] MEDS: HALFPRIN EC PO SCH (10:22)
[2018-12-12] MEDS: AMARYL PO SCH (10:22)
[2018-12-12] MEDS: VITAMIN C PO SCH (10:22)
[2018-12-12] MEDS: PEPCID PO SCH ×2 (10:23→22:46)
--- NOTE | 2018-12-12 10:43 | Progress Note ---
Assessment and Plan - Patient Problems (1) Acute respiratory failure Current Visit: No Status: Acute Qualifiers: Respiratory failure complication: hypoxia Qualified Code(s): J96.01 - Acute respiratory failure with hypoxia Plan to address problem: Right and left heart catheterization on Friday morning for cardiomyopathy, congestive heart failure, pulmonary hypertension and persistent bilateral pulmonary infiltrates. Subjective Date of service: 12/12/18 Interval history: Patient is comfortable, no new cardiac complaints. He is sitting up in the chair, breathing comfortably with no chest pain. Chest x-ray shows some clearing but persistence of bilateral pulmonary opacities. Objective Vital Signs Temp Pulse Pulse Resp Resp BP Pulse Ox 12/12/18 09:09 78 18 12/12/18 09:04 99 12/12/18 08:57 99 12/12/18 07:26 98.6 F 74 20 135/67 98 12/12/18 02:05 97.7 F 74 18 151/71 99 12/11/18 20:11 99 12/11/18 20:10 77 18 12/11/18 19:38 98.3 F 79 18 136/63 98 12/11/18 13:41 97.8 F 56 L 20 115/49 99 - Physical Examination General: No Apparent Distress HEENT: Positive: PERRL Neck: Positive: trachea midline Cardiac: Positive: Reg Rate and Rhythm Lungs: Positive: Decreased Breath Sounds Neuro: Positive: Grossly Intact Abdomen: Positive: Soft Extremities: Absent: edema
--- NOTE | 2018-12-12 12:09 | Progress Note ---
Assessment and Plan Assessment and plan: This is an 78-year old male with multiple medical problems. 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 Patient is on home O2. He also has paroxysmal atrial flutter, a history of bilateral PE, on Eliquis for oral anticoagulation. Patient presents with shortness of breath, coughs, leukocytosis, admitted with COPD exacerbation, Pneumonia and decompensated heart failure. Patient denies chest pain and palpitations. There is no lower extremity edema. ECG is sinus rhythm, no acute ischemic changes. A cardiology consulted Acute hypoxic respiratory failure, COPD exacerbation - Patient is on IV Solu-Medrol, duo nebs, nebulizer treatments, oxygen support, continue antibiotics Bilateral pleural effusion - Chest ultrasound was done - Pulmonary consulted Sepsis secondary to Bilateral pneumonia -Patient was on IV vancomycin and cefepime. D/C vanc per ID - Infectious disease following History of PE - Continue eliquis Paroxysmal atrial flutter - Controlled, continue eliquis Cardiomyopathy, chronic systolic CHF with acute exacerbation - Patient is on IV Lasix - Cardiology consulted and recommend to continue diurese the patient and right and left heart cath on Friday DVT prophylaxis Disposition; continue inpatient care. Right and left cath on friday History Interval history: Patient was seen and evaluated this morning, patient's SOB is getting better. Hospitalist Physical - Physical exam Narrative exam: Patient is in moderate respiratory distress. The patient appeared well nourished and normally developed. Vital signs as documented. Head exam is unremarkable. No scleral icterus . Neck is without jugular venous distension, thyromegaly, or carotid bruits. Lung decrease air entry bilaterally. Cardiac exam reveals irregular rate and Rhythm. Abdominal exam reveals normal bowel sounds, no masses, no organomegaly and no aortic enlargement. Extremities are nonedematous and both femoral and pedal pulses are normal. 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 No focal weakness. - Constitutional Vitals: Temp Pulse Resp BP Pulse Ox 98.6 F 78 18 135/67 99 12/12/18 07:26 12/12/18 09:09 12/12/18 09:09 12/12/18 07:26 12/12/18 09:04 General appearance: Present: no acute distress Results - Labs CBC & Chem 7: 12/11/18 04:47 12/11/18 04:47 Labs: Laboratory Last Values WBC 17.3 K/mm3 (4.5-11.0) H 12/11/18 04:47 RBC 3.41 M/mm3 (3.65-5.03) L 12/11/18 04:47 Hgb 9.8 gm/dl (11.8-15.2) L 12/11/18 04:47 Hct 29.5 % (35.5-45.6) L 12/11/18 04:47 MCV 86 fl (84-94) 12/11/18 04:47 MCH 29 pg (28-32) 12/11/18 04:47 MCHC 33 % (32-34) 12/11/18 04:47 RDW 16.0 % (13.2-15.2) H 12/11/18 04:47 Plt Count 451 K/mm3 (140-440) H 12/11/18 04:47 Lymph % (Auto) 12.0 % (13.4-35.0) L 12/09/18 06:54 [place] % (Auto) 8.4 % (0.0-7.3) H 12/09/18 06:54 Eos % (Auto) 1.6 % (0.0-4.3) 12/09/18 06:54 Baso % (Auto) 0.3 % (0.0-1.8) 12/09/18 06:54 Lymph # 1.5 K/mm3 (1.2-5.4) 12/09/18 06:54 [place] # 1.0 K/mm3 (0.0-0.8) H 12/09/18 06:54 Eos # 0.2 K/mm3 (0.0-0.4) 12/09/18 06:54 Baso # 0.0 K/mm3 (0.0-0.1) 12/09/18 06:54 Add Manual Diff Complete 12/11/18 04:47 Total Counted 100 12/11/18 04:47 Seg Neutrophils % Office Cashier 12/11/18 04:47 Seg Neuts % (Manual) 93.0 % (40.0-70.0) H 12/11/18 04:47 0 % 12/11/18 04:47 4.0 % (13.4-35.0) L 12/11/18 04:47 Reactive Lymphs % (Man) 0 % 12/11/18 04:47 3.0 % (0.0-7.3) 12/11/18 04:47 0 % (0.0-4.3) 12/11/18 04:47 0 % (0.0-1.8) 12/11/18 04:47 0 % 12/11/18 04:47 0 % 12/11/18 04:47 0 % 12/11/18 04:47 0 % 12/11/18 04:47 Nucleated RBC % 1.0 % (0.0-0.9) H 12/11/18 04:47 Seg Neutrophils # 9.5 K/mm3 (1.8-7.7) H 12/09/18 06:54 Seg Neutrophils # Man 16.1 K/mm3 (1.8-7.7) H 12/11/18 04:47 Band Neutrophils # 0.0 K/mm3 12/11/18 04:47 0.7 K/mm3 (1.2-5.4) L 12/11/18 04:47 Abs React Lymphs (Man) 0.0 K/mm3 12/11/18 04:47 0.5 K/mm3 (0.0-0.8) 12/11/18 04:47 0.0 K/mm3 (0.0-0.4) 12/11/18 04:47 0.0 K/mm3 (0.0-0.1) 12/11/18 04:47 0.0 K/mm3 12/11/18 04:47 0.0 K/mm3 12/11/18 04:47 0.0 K/mm3 12/11/18 04:47 Blast Cells # 0.0 K/mm3 12/11/18 04:47 WBC Morphology Not Reportable 12/11/18 04:47 Hypersegmented Neuts Not Reportable 12/11/18 04:47 Hyposegmented Neuts Not Reportable 12/11/18 04:47 Hypogranular Neuts Not Reportable 12/11/18 04:47 Not Reportable 12/11/18 04:47 2+ 12/11/18 04:47 Not Reportable 12/11/18 04:47 Not Reportable 12/11/18 04:47 Not Reportable 12/11/18 04:47 Not Reportable 12/11/18 04:47 Consistent w auto 12/11/18 04:47 Not Reportable 12/11/18 04:47 Plt Clumps, EDTA Not Reportable 12/11/18 04:47 Not Reportable 12/11/18 04:47 Not Reportable 12/11/18 04:47 Not Reportable 12/11/18 04:47 Plt Morphology Comment Not Reportable 12/11/18 04:47 RBC Morphology Not Reportable 12/11/18 04:47 Dimorphic RBCs Not Reportable 12/11/18 04:47 Not Reportable 12/11/18 04:47 Not Reportable 12/11/18 04:47 Not Reportable 12/11/18 04:47 1+ 12/11/18 04:47 Not Reportable 12/11/18 04:47 Not Reportable 12/11/18 04:47 Not Reportable 12/11/18 04:47 Not Reportable 12/11/18 04:47 Not Reportable 12/11/18 04:47 Not Reportable 12/11/18 04:47 Not Reportable 12/11/18 04:47 Not Reportable 12/11/18 04:47 Not Reportable 12/11/18 04:47 Not Reportable 12/11/18 04:47 Not Reportable 12/11/18 04:47 Not Reportable 12/11/18 04:47 Not Reportable 12/11/18 04:47 Not Reportable 12/11/18 04:47 Not Reportable 12/11/18 04:47 Acanthocytes (Spur) Not Reportable 12/11/18 04:47 Rouleaux Not Reportable 12/11/18 04:47 Not Reportable 12/11/18 04:47 Not Reportable 12/11/18 04:47 Not Reportable 12/11/18 04:47 Not Reportable 12/11/18 04:47 Hem Pathologist Commnt No 12/11/18 04:47 PT 18.7 Sec. (12.2-14.9) H 12/08/18 09:31 INR 1.60 (0.87-1.13) H 12/08/18 09:31 APTT 34.5 Sec. (24.2-36.6) 12/08/18 09:31 POC ABG pH 7.415 (7.35-7.45) 12/08/18 10:07 POC ABG pCO2 37.1 (35-45) 12/08/18 10:07 POC ABG pO2 70 (80-105) L 12/08/18 10:07 POC ABG HCO3 23.8 (22-26 mml/L) 12/08/18 10:07 POC ABG Total CO2 25 (23-27mmol/L) 12/08/18 10:07 POC ABG O2 Sat 94 12/08/18 10:07 POC ABG Base Excess -1 ((-2) - (+3)mmol/L) 12/08/18 10:07 32 % 12/08/18 10:07 Sodium 133 mmol/L (137-145) L 12/11/18 04:47 Potassium 4.1 mmol/L (3.6-5.0) 12/11/18 04:47 Chloride 89.6 mmol/L (98-107) L 12/11/18 04:47 Carbon Dioxide 31 mmol/L (22-30) H 12/11/18 04:47 17 mmol/L 12/11/18 04:47 BUN 14 mg/dL (9-20) 12/11/18 04:47 0.6 mg/dL (0.8-1.5) L 12/11/18 04:47 Estimated GFR > 60 ml/min 12/11/18 04:47 23 % 12/11/18 04:47 Glucose 218 mg/dL (75-100) H 12/11/18 04:47 POC Glucose 200 (70-105) H 12/12/18 07:33 5.2 % (4-6) 12/08/18 20:35 Lactic Acid 1.30 mmol/L (0.7-2.0) 12/08/18 11:56 Calcium 8.6 mg/dL (8.4-10.2) 12/11/18 04:47 Magnesium 1.80 mg/dL (1.7-2.3) 12/08/18 09:31 Iron 21 ug/dL (49-181) L 12/08/18 20:35 TIBC 242 mcg/dL (250-450) L 12/08/18 20:35 % Saturation 8.68 % 12/08/18 20:35 199 mg/dl (180-329) 12/08/18 20:35 0.40 mg/dL (0.1-1.2) 12/09/18 06:54 < 0.2 mg/dL (0-0.2) 12/08/18 09:31 0.2 mg/dL 12/08/18 09:31 AST 15 units/L (5-40) 12/09/18 06:54 ALT 14 units/L (7-56) 12/09/18 06:54 51 units/L (35-129) 12/09/18 06:54 185 units/L (55-170) H 12/08/18 09:31 CK-MB (CK-2) 4.1 ng/mL (0.0-4.0) H 12/08/18 09:31 CK-MB (CK-2) Rel Index 2.2 (0-4) 12/08/18 09:31 < 0.010 ng/mL (0.00-0.029) 12/08/18 09:31 NT-Pro-B Natriuret Pep 4456 pg/mL (0-900) H 12/08/18 09:31 6.7 g/dL (6.3-8.2) 12/09/18 06:54 3.6 g/dL (3.9-5) L 12/09/18 06:54 1.2 % 12/09/18 06:54 Vitamin B12 1587 pg/mL (211-911) H 12/08/18 20:35 Dark yellow (Yellow) 12/08/18 17:22 Cloudy (Clear) 12/08/18 17:22 5.0 (5.0-7.0) 12/08/18 17:22 Ur Specific [place] 1.013 (1.003-1.030) 12/08/18 17:22 <15 mg/dl mg/dL (Negative) 12/08/18 17:22 Neg mg/dL (Negative) 12/08/18 17:22 Neg mg/dL (Negative) 12/08/18 17:22 Neg (Negative) 12/08/18 17:22 Neg (Negative) 12/08/18 17:22 Neg (Negative) 12/08/18 17:22 < 2.0 mg/dL (<2.0) 12/08/18 17:22 Ur Leukocyte Esterase Neg (Negative) 12/08/18 17:22 1.0 /HPF (0.0-6.0) 12/08/18 17:22 4.0 /HPF (0.0-6.0) 12/08/18 17:22 U Epithel Cells (Auto) < 1.0 /HPF (0-13.0) 12/08/18 17:22 Few /HPF 12/08/18 17:22 Vancomycin Trough 21.1 ug/mL (5.0-20.0) H 12/11/18 20:41 Active Medications - Current Medications Current Medications: Generic Name Dose Route Start Last Admin Trade Name Freq PRN Reason Stop Dose Admin Acetaminophen 650 mg 12/08/18 20:16 12/11/18 23:24 Tylenol PO 650 mg Q4H PRN Administration Pain MILD(1-3)/Fever >100.5/DUCKWORTH Albuterol 2.5 mg 12/08/18 20:19 12/08/18 22:13 Proventil IH 2.5 mg Q4HRT PRN Administration Shortness Of Breath Albuterol/Ipratropium 1 ampul 12/12/18 09:00 Duoneb *Not For Prn Use* IH TIDRT DEIDRA Amiodarone HCl 200 mg 12/08/18 20:00 12/12/18 10:22 Cordarone PO 200 mg DAILY DEIDRA Administration Ascorbic Acid 500 mg 12/08/18 20:00 12/12/18 10:22 Vitamin C PO 500 mg QDAY DEIDRA Administration Aspirin 81 mg 12/09/18 10:00 12/12/18 10:22 Halfprin Ec PO 81 mg QDAY DEIDRA Administration Famotidine 20 mg 12/08/18 22:00 12/12/18 10:23 Pepcid PO 20 mg BID DEIDRA Administration Furosemide 40 mg 12/09/18 18:00 12/11/18 17:04 Lasix IV 40 mg 0600,1800 DEIDRA Administration Glimepiride 4 mg 12/08/18 20:00 12/12/18 10:22 Amaryl PO 4 mg QAMDIAB DEIDRA Administration Hydromorphone HCl 0.5 mg 12/08/18 20:16 Dilaudid IV Q3H PRN Pain , Severe (7-10) Cefepime HCl 1 gm in 100 mls @ 200 mls/hr 12/09/18 14:00 12/11/18 13:42 Maxipime/Ns 1 Gm/100 Ml IV 200 mls/hr Q8HR DEIDRA Administration Protocol Ibuprofen 600 mg 12/08/18 20:16 12/12/18 08:13 Ibuprofen PO 600 mg Q6H PRN Administration Pain, Mild (1-3) Insulin Human Lispro 0 unit 12/08/18 22:00 12/12/18 08:50 Humalog SUB-Q 3 unit ACHS DEIDRA Administration Protocol Magnesium Hydroxide 30 ml 12/10/18 11:03 12/10/18 11:54 Milk Of Magnesia PO 30 ml QDAY PRN Administration Constipation Methylprednisolone Sodium Succinate 80 mg 12/08/18 22:00 12/11/18 23:23 Solu-Medrol IV 80 mg Q8HR DEIDRA Administration Metolazone 5 mg 12/10/18 13:00 12/12/18 10:21 Zaroxolyn PO 5 mg QDAY DEIDRA Administration Metoprolol Tartrate 50 mg 12/08/18 22:00 12/12/18 10:21 Lopressor PO 50 mg BID DEIDRA Administration Multivitamins/Iron 1 each 12/09/18 11:00 12/12/18 10:13 Hemocyte Plus PO 1 each QDAY DEIDRA Administration Ondansetron HCl 4 mg 12/08/18 20:16 Zofran IV Q8H PRN Nausea And Vomiting Polyethylene Glycol 17 gm 12/12/18 10:00 12/12/18 10:21 Miralax 3350 PO 17 gm QDAY DEIDRA Administration Sodium Chloride 10 ml 12/08/18 22:00 12/11/18 09:31 Sodium Chloride Flush Syringe 10 Ml IV 10 ml BID DEIDRA Administration Sodium Chloride 10 ml 12/08/18 20:16 12/09/18 22:40 Sodium Chloride Flush Syringe 10 Ml IV 10 ml PRN PRN Administration LINE FLUSH Spironolactone 25 mg 12/10/18 13:00 12/12/18 10:22 Aldactone PO 25 mg QDAY DEIDRA Administration
[2018-12-12] MEDS: SODIUM CHLORIDE FLUSH SYRINGE 10 ML IV SCH ×2 (13:03→22:47)
[2018-12-12] MEDS: SOLU-Medrol IV SCH ×3 (14:07→22:45)
[2018-12-12] MEDS: MAXIPIME/NS 1 GM/100 ML 1 GM/100 ML BAG IV SCH ×4 (14:09→22:42)
[2018-12-12] MEDS: LASIX IV SCH ×2 (17:02→22:43)
[2018-12-13] MEDS: HumaLOG SUB-Q SCH ×5 (01:20→22:45)
[2018-12-13] MEDS: SODIUM CHLORIDE FLUSH SYRINGE 10 ML IV SCH ×3 (01:21→21:53)
[2018-12-13] MEDS: LOPRESSOR PO SCH ×3 (01:21→21:52)
[2018-12-13] MEDS: MAXIPIME/NS 1 GM/100 ML 1 GM/100 ML BAG IV SCH (05:34)
[2018-12-13] MEDS: SOLU-Medrol IV SCH ×2 (05:35→14:12)
[2018-12-13] MEDS: LASIX IV SCH ×2 (05:35→17:28)
[2018-12-13 06:27] LABS: Basophils % (Auto) 0.2 % (0.0-1.8); Eosinophils % (Auto) 0.1 % (0.0-4.3); Hematocrit 35.3 % (35.5-45.6); Hemoglobin 11.6 gm/dl (11.8-15.2); Lymphocytes # (Auto) 0.9 K/mm3 (1.2-5.4); Lymphocytes % (Auto) 5.5 % (13.4-35.0); Mean Corpuscular HGB Conc 33 % (32-34); Mean Corpuscular Volume 87 fl (84-94); Monocytes # (Auto) 0.9 K/mm3 (0.0-0.8); Monocytes % (Auto) 5.4 % (0.0-7.3); Platelet Count 497 K/mm3 (140-440); Red Blood Count 4.07 M/mm3 (3.65-5.03); Red Cell Distribution Width 16.4 % (13.2-15.2)
[2018-12-13 06:37] LABS: BUN/Creatinine Ratio 27; Blood Urea Nitrogen 16 mg/dL (9-20); Calcium 8.7 mg/dL (8.4-10.2); Hemolysis Index 357
[2018-12-13] MEDS: DUONEB *Not for PRN Use IH SCH ×3 (08:04→20:51)
[2018-12-13] MEDS: AMARYL PO SCH (09:05)
[2018-12-13] MEDS: ALDACTONE PO SCH (09:53)
[2018-12-13] MEDS: CORDARONE PO SCH (09:53)
[2018-12-13] MEDS: PEPCID PO SCH ×2 (09:53→21:52)
[2018-12-13] MEDS: ZAROXOLYN PO SCH (09:53)
[2018-12-13] MEDS: VITAMIN C PO SCH (09:53)
[2018-12-13] MEDS: HALFPRIN EC PO SCH (09:53)
[2018-12-13] MEDS: MIRALAX 3350 PO SCH (09:54)
[2018-12-13] MEDS: HEMOCYTE PLUS PO SCH (09:54)
--- NOTE | 2018-12-13 13:29 | Progress Note ---
Assessment and Plan Cultures: 12/08/2018 blood culture: no growth 12/08/2018 nasal MRSA culture: neg 12/09/2018 sputum poor specimen A/P: 78-year-old male with hypertension, CHF, diabetes mellitus presented to the hospital yesterday with shortness of breath and cough present for the last 1 week. Note, he was recently hospitalized at [facility] from his cardiology clinic where he was noted to be in atrial flutter with rapid ventricular rate. He was started on IV amiodarone and then converted to oral amiodarone when he converted to sinus rhythm. Was discharged from the hospital on 12/06/2018. Admitted with: 1) Bilateral pneumonia, acute respiratory failure: still leukocytosis. Differential includes hospital-acquired pneumonia versus ? Amiodarone toxicity given recent initiation of amiodarone. Repeat CXR cris pulmonary edema. Chest US cris effusion. 2) Congestive heart failure 3) Diabetes mellitus type 2 4) A.fib/flutter: On amiodarone and anticoagulation with Eliquis. Recs: stop cefepime D 5 of 5 stop vancomycin - MRSA PCR neg monitor leukocytosis off antibiotics- elevated from steroids Will sign off, call us if questions Elizabeth Mendoza Subjective Date of service: 12/13/18 Principal diagnosis: pneumonia Interval history: Patient feels better, no SOB, minimal cough. No fever. Objective - Exam Narrative Exam: General appearance: Alert in NAD, conversant Eyes: anicteric sclerae, moist conjunctivae; no lid-lag; PERRLA HENT: Atraumatic; oropharynx clear with moist mucous membranes and no mucosal ulcerations/no oral thrush; normal hard and soft palate. Normal external ears. Neck: Trachea midline; supple, no thyromegaly or lymphadenopathy Lungs: CTA, with normal respiratory effort and no intercostal retractions CV: RRR, no murmurs Abdomen: Soft, non-tender; no masses or hepatosplenomegaly Extremities: No peripheral edema or extremity lymphadenopathy Skin: Normal temperature, turgor and texture; no rash, ulcers or subcutaneous nodules Psych: Appropriate affect, alert and oriented to person, place and time. Neuro: alert and oriented x 3. Moving all extermities - Constitutional Vitals: Vital Signs Temp Pulse Resp BP Pulse Ox 97.8 F 68 18 129/51 100 12/13/18 08:33 12/13/18 10:01 12/13/18 10:01 12/13/18 08:33 12/13/18 08:33 Temperature -Last 24 Hours Temperature 97.8 F Temperature 98.3 F Temperature 98.2 F - Labs CBC & Chem 7: 12/13/18 04:23 12/13/18 04:23 Labs: Abnormal lab results 12/12/18 12/12/18 12/13/18 Range/Units 16:47 21:41 04:23 WBC 16.5 H (4.5-11.0) K/mm3 Hgb 11.6 L (11.8-15.2) gm/dl Hct 35.3 L (35.5-45.6) % RDW 16.4 H (13.2-15.2) % Plt Count 497 H (140-440) K/mm3 Lymph % (Auto) 5.5 L (13.4-35.0) % Lymph # 0.9 L (1.2-5.4) K/mm3 [place] # 0.9 H (0.0-0.8) K/mm3 Seg Neutrophils % 88.8 H (40.0-70.0) % Seg Neutrophils # 14.7 H (1.8-7.7) K/mm3 Sodium (137-145) mmol/L Potassium (3.6-5.0) mmol/L Chloride (98-107) mmol/L Carbon Dioxide (22-30) mmol/L Creatinine (0.8-1.5) mg/dL Glucose (75-100) mg/dL POC Glucose 290 H 327 H (70-105) 12/13/18 12/13/18 12/13/18 Range/Units 04:23 08:43 11:26 WBC (4.5-11.0) K/mm3 Hgb (11.8-15.2) gm/dl Hct (35.5-45.6) % RDW (13.2-15.2) % Plt Count (140-440) K/mm3 Lymph % (Auto) (13.4-35.0) % Lymph # (1.2-5.4) K/mm3 [place] # (0.0-0.8) K/mm3 Seg Neutrophils % (40.0-70.0) % Seg Neutrophils # (1.8-7.7) K/mm3 Sodium 128 L (137-145) mmol/L Potassium 5.3 H D (3.6-5.0) mmol/L Chloride 79.5 L (98-107) mmol/L Carbon Dioxide 35 H (22-30) mmol/L Creatinine 0.6 L (0.8-1.5) mg/dL Glucose 268 H (75-100) mg/dL POC Glucose 290 H 357 H (70-105)
--- NOTE | 2018-12-13 14:50 | Progress Note ---
Assessment and Plan - Patient Problems (1) Acute respiratory failure Current Visit: No Status: Acute Qualifiers: Respiratory failure complication: hypoxia Qualified Code(s): J96.01 - Acute respiratory failure with hypoxia Plan to address problem: Patient is undergoing pulmonary workup for COPD and persistent bilateral pulmonary opacities. Amiodarone toxicity has been suggested, we will discontinue amiodarone. The right and left heart catheterization has been scheduled for tomorrow morning. (2) Leukocytosis Current Visit: Yes Status: Acute Plan to address problem: Leukocytosis of 16,000 may likely be related to the ongoing high-dose therapy with intravenous methyl prednisolone. Subjective Date of service: 12/13/18 Principal diagnosis: pneumonia Interval history: Patient is comfortable, awaiting right and left heart catheterization scheduled for tomorrow morning. Objective Vital Signs Temp Pulse Pulse Resp Resp BP BP 12/13/18 13:40 97.6 F 72 20 128/58 12/13/18 10:01 68 18 12/13/18 08:33 97.8 F 74 18 129/51 12/13/18 08:08 12/13/18 08:05 67 18 12/13/18 07:43 12/13/18 02:24 98.3 F 65 20 128/65 12/13/18 02:21 64 12/12/18 23:54 66 12/12/18 22:00 20 12/12/18 20:46 12/12/18 20:45 68 18 12/12/18 20:00 75 18 140/69 Pulse Ox 12/13/18 13:40 99 12/13/18 10:01 12/13/18 08:33 100 12/13/18 08:08 97 12/13/18 08:05 12/13/18 07:43 99 12/13/18 02:24 99 12/13/18 02:21 12/12/18 23:54 12/12/18 22:00 98 12/12/18 20:46 96 12/12/18 20:45 12/12/18 20:00 98 - Physical Examination General: No Apparent Distress HEENT: Positive: PERRL Neck: Positive: trachea midline Cardiac: Positive: Reg Rate and Rhythm Lungs: Positive: Decreased Breath Sounds Neuro: Positive: Grossly Intact Abdomen: Positive: Soft Skin: Positive: Clear Extremities: Absent: edema - Labs and Meds CBC 12/13/18 Range/Units 04:23 WBC 16.5 H (4.5-11.0) K/mm3 RBC 4.07 (3.65-5.03) M/mm3 Hgb 11.6 L (11.8-15.2) gm/dl Hct 35.3 L (35.5-45.6) % Plt Count 497 H (140-440) K/mm3 Lymph # 0.9 L (1.2-5.4) K/mm3 [place] # 0.9 H (0.0-0.8) K/mm3 Eos # 0.0 (0.0-0.4) K/mm3 Baso # 0.0 (0.0-0.1) K/mm3 Comprehensive Metabolic Panel 12/13/18 Range/Units 04:23 Sodium 128 L (137-145) mmol/L Potassium 5.3 H D (3.6-5.0) mmol/L Chloride 79.5 L (98-107) mmol/L Carbon Dioxide 35 H (22-30) mmol/L BUN 16 (9-20) mg/dL Creatinine 0.6 L (0.8-1.5) mg/dL Glucose 268 H (75-100) mg/dL Calcium 8.7 (8.4-10.2) mg/dL
--- NOTE | 2018-12-13 16:09 | Progress Note ---
Assessment and Plan Assessment and plan: This is an 78-year old male with multiple medical problems. 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 Patient is on home O2. He also has paroxysmal atrial flutter, a history of bilateral PE, on Eliquis for oral anticoagulation. Patient presents with shortness of breath, coughs, leukocytosis, admitted with COPD exacerbation, Pneumonia and decompensated heart failure. Patient denies chest pain and palpitations. There is no lower extremity edema. ECG is sinus rhythm, no acute ischemic changes. A cardiology consulted Acute hypoxic respiratory failure, COPD exacerbation sp steroids, now dc, duo nebs, nebulizer treatments, oxygen support, continue antibiotics Bilateral pleural effusion - Chest ultrasound was done - Pulmonary consulted DM2 with persistent hyperglycemia -a1c is 5.4, so high glc is due to steroids dc steroids, bolus with insulin Sepsis secondary to Bilateral pneumonia completed abx on 12/12 History of PE - Continue eliquis Paroxysmal atrial flutter - Controlled, continue eliquis, Cardiomyopathy, chronic systolic CHF with acute exacerbation - Patient is on IV Lasix, Right and left cath on friday - Cardiology consulted and recommend to continue diurese the patient and right and left heart cath on Friday DVT prophylaxis Disposition; continue inpatient care. Right and left cath on friday History Interval history: Patient was seen and evaluated this morning, patient's SOB is getting better. Hospitalist Physical - Physical exam Narrative exam: Patient is in moderate respiratory distress. The patient appeared well nourished and normally developed. Vital signs as documented. Head exam is unremarkable. No scleral icterus . Neck is without jugular venous distension, thyromegaly, or carotid bruits. Lung decrease air entry bilaterally. Cardiac exam reveals irregular rate and Rhythm. Abdominal exam reveals normal bowel sounds, no masses, no organomegaly and no aortic enlargement. Extremities are nonedematous and both femoral and pedal pulses are normal. CASE FILLER: Alert and oriented 3. No focal weakness. Hospitalist Physical - Constitutional Vitals: Temp Pulse Resp BP Pulse Ox 97.6 F 72 20 128/58 99 12/13/18 13:40 12/13/18 13:40 12/13/18 13:40 12/13/18 13:40 12/13/18 13:40 General appearance: Present: no acute distress Results - Labs CBC & Chem 7: 12/13/18 04:23 12/13/18 04:23 Labs: Laboratory Last Values WBC 16.5 K/mm3 (4.5-11.0) H 12/13/18 04:23 RBC 4.07 M/mm3 (3.65-5.03) 12/13/18 04:23 Hgb 11.6 gm/dl (11.8-15.2) L 12/13/18 04:23 Hct 35.3 % (35.5-45.6) L 12/13/18 04:23 MCV 87 fl (84-94) 12/13/18 04:23 MCH 29 pg (28-32) 12/13/18 04:23 MCHC 33 % (32-34) 12/13/18 04:23 RDW 16.4 % (13.2-15.2) H 12/13/18 04:23 Plt Count 497 K/mm3 (140-440) H 12/13/18 04:23 Lymph % (Auto) 5.5 % (13.4-35.0) L 12/13/18 04:23 [place] % (Auto) 5.4 % (0.0-7.3) 12/13/18 04:23 Eos % (Auto) 0.1 % (0.0-4.3) 12/13/18 04:23 Baso % (Auto) 0.2 % (0.0-1.8) 12/13/18 04:23 Lymph # 0.9 K/mm3 (1.2-5.4) L 12/13/18 04:23 [place] # 0.9 K/mm3 (0.0-0.8) H 12/13/18 04:23 Eos # 0.0 K/mm3 (0.0-0.4) 12/13/18 04:23 Baso # 0.0 K/mm3 (0.0-0.1) 12/13/18 04:23 Add Manual Diff Complete 12/11/18 04:47 Total Counted 100 12/11/18 04:47 Seg Neutrophils % 88.8 % (40.0-70.0) H 12/13/18 04:23 Seg Neuts % (Manual) 93.0 % (40.0-70.0) H 12/11/18 04:47 0 % 12/11/18 04:47 4.0 % (13.4-35.0) L 12/11/18 04:47 Reactive Lymphs % (Man) 0 % 12/11/18 04:47 3.0 % (0.0-7.3) 12/11/18 04:47 0 % (0.0-4.3) 12/11/18 04:47 0 % (0.0-1.8) 12/11/18 04:47 0 % 12/11/18 04:47 0 % 12/11/18 04:47 0 % 12/11/18 04:47 0 % 12/11/18 04:47 Nucleated RBC % 1.0 % (0.0-0.9) H 12/11/18 04:47 Seg Neutrophils # 14.7 K/mm3 (1.8-7.7) H 12/13/18 04:23 Seg Neutrophils # Man 16.1 K/mm3 (1.8-7.7) H 12/11/18 04:47 Band Neutrophils # 0.0 K/mm3 12/11/18 04:47 0.7 K/mm3 (1.2-5.4) L 12/11/18 04:47 Abs React Lymphs (Man) 0.0 K/mm3 12/11/18 04:47 0.5 K/mm3 (0.0-0.8) 12/11/18 04:47 0.0 K/mm3 (0.0-0.4) 12/11/18 04:47 0.0 K/mm3 (0.0-0.1) 12/11/18 04:47 0.0 K/mm3 12/11/18 04:47 0.0 K/mm3 12/11/18 04:47 0.0 K/mm3 12/11/18 04:47 Blast Cells # 0.0 K/mm3 12/11/18 04:47 WBC Morphology Not Reportable 12/11/18 04:47 Hypersegmented Neuts Not Reportable 12/11/18 04:47 Hyposegmented Neuts Not Reportable 12/11/18 04:47 Hypogranular Neuts Not Reportable 12/11/18 04:47 Not Reportable 12/11/18 04:47 2+ 12/11/18 04:47 Not Reportable 12/11/18 04:47 Not Reportable 12/11/18 04:47 Not Reportable 12/11/18 04:47 Not Reportable 12/11/18 04:47 Consistent w auto 12/11/18 04:47 Not Reportable 12/11/18 04:47 Plt Clumps, EDTA Not Reportable 12/11/18 04:47 Not Reportable 12/11/18 04:47 Not Reportable 12/11/18 04:47 Not Reportable 12/11/18 04:47 Plt Morphology Comment Not Reportable 12/11/18 04:47 RBC Morphology Not Reportable 12/11/18 04:47 Dimorphic RBCs Not Reportable 12/11/18 04:47 Not Reportable 12/11/18 04:47 Not Reportable 12/11/18 04:47 Not Reportable 12/11/18 04:47 1+ 12/11/18 04:47 Not Reportable 12/11/18 04:47 Not Reportable 12/11/18 04:47 Not Reportable 12/11/18 04:47 Not Reportable 12/11/18 04:47 Not Reportable 12/11/18 04:47 Not Reportable 12/11/18 04:47 Not Reportable 12/11/18 04:47 Not Reportable 12/11/18 04:47 Not Reportable 12/11/18 04:47 Not Reportable 12/11/18 04:47 Not Reportable 12/11/18 04:47 Not Reportable 12/11/18 04:47 Not Reportable 12/11/18 04:47 Not Reportable 12/11/18 04:47 Not Reportable 12/11/18 04:47 Acanthocytes (Spur) Not Reportable 12/11/18 04:47 Rouleaux Not Reportable 12/11/18 04:47 Not Reportable 12/11/18 04:47 Not Reportable 12/11/18 04:47 Not Reportable 12/11/18 04:47 Not Reportable 12/11/18 04:47 Hem Pathologist Commnt No 12/11/18 04:47 PT 18.7 Sec. (12.2-14.9) H 12/08/18 09:31 INR 1.60 (0.87-1.13) H 12/08/18 09:31 APTT 34.5 Sec. (24.2-36.6) 12/08/18 09:31 POC ABG pH 7.415 (7.35-7.45) 12/08/18 10:07 POC ABG pCO2 37.1 (35-45) 12/08/18 10:07 POC ABG pO2 70 (80-105) L 12/08/18 10:07 POC ABG HCO3 23.8 (22-26 mml/L) 12/08/18 10:07 POC ABG Total CO2 25 (23-27mmol/L) 12/08/18 10:07 POC ABG O2 Sat 94 12/08/18 10:07 POC ABG Base Excess -1 ((-2) - (+3)mmol/L) 12/08/18 10:07 32 % 12/08/18 10:07 Sodium 128 mmol/L (137-145) L 12/13/18 04:23 Potassium 5.3 mmol/L (3.6-5.0) H D 12/13/18 04:23 Chloride 79.5 mmol/L (98-107) L 12/13/18 04:23 Carbon Dioxide 35 mmol/L (22-30) H 12/13/18 04:23 19 mmol/L 12/13/18 04:23 BUN 16 mg/dL (9-20) 12/13/18 04:23 0.6 mg/dL (0.8-1.5) L 12/13/18 04:23 Estimated GFR > 60 ml/min 12/13/18 04:23 27 % 12/13/18 04:23 Glucose 268 mg/dL (75-100) H 12/13/18 04:23 POC Glucose 384 (70-105) H 12/13/18 15:43 5.2 % (4-6) 12/08/18 20:35 Lactic Acid 1.30 mmol/L (0.7-2.0) 12/08/18 11:56 Calcium 8.7 mg/dL (8.4-10.2) 12/13/18 04:23 Magnesium 1.80 mg/dL (1.7-2.3) 12/08/18 09:31 Iron 21 ug/dL (49-181) L 12/08/18 20:35 TIBC 242 mcg/dL (250-450) L 12/08/18 20:35 % Saturation 8.68 % 12/08/18 20:35 199 mg/dl (180-329) 12/08/18 20:35 0.40 mg/dL (0.1-1.2) 12/09/18 06:54 < 0.2 mg/dL (0-0.2) 12/08/18 09:31 0.2 mg/dL 12/08/18 09:31 AST 15 units/L (5-40) 12/09/18 06:54 ALT 14 units/L (7-56) 12/09/18 06:54 51 units/L (35-129) 12/09/18 06:54 185 units/L (55-170) H 12/08/18 09:31 CK-MB (CK-2) 4.1 ng/mL (0.0-4.0) H 12/08/18 09:31 CK-MB (CK-2) Rel Index 2.2 (0-4) 12/08/18 09:31 < 0.010 ng/mL (0.00-0.029) 12/08/18 09:31 NT-Pro-B Natriuret Pep 4456 pg/mL (0-900) H 12/08/18 09:31 6.7 g/dL (6.3-8.2) 12/09/18 06:54 3.6 g/dL (3.9-5) L 12/09/18 06:54 1.2 % 12/09/18 06:54 Vitamin B12 1587 pg/mL (211-911) H 12/08/18 20:35 Dark yellow (Yellow) 12/08/18 17:22 Cloudy (Clear) 12/08/18 17:22 5.0 (5.0-7.0) 12/08/18 17:22 Ur Specific [place] 1.013 (1.003-1.030) 12/08/18 17:22 <15 mg/dl mg/dL (Negative) 12/08/18 17:22 Neg mg/dL (Negative) 12/08/18 17:22 Neg mg/dL (Negative) 12/08/18 17:22 Neg (Negative) 12/08/18 17:22 Neg (Negative) 12/08/18 17:22 Neg (Negative) 12/08/18 17:22 < 2.0 mg/dL (<2.0) 12/08/18 17:22 Ur Leukocyte Esterase Neg (Negative) 12/08/18 17:22 1.0 /HPF (0.0-6.0) 12/08/18 17:22 4.0 /HPF (0.0-6.0) 12/08/18 17:22 U Epithel Cells (Auto) < 1.0 /HPF (0-13.0) 12/08/18 17:22 Few /HPF 12/08/18 17:22 Vancomycin Trough 21.1 ug/mL (5.0-20.0) H 12/11/18 20:41 Active Medications - Current Medications Current Medications: Generic Name Dose Route Start Last Admin Trade Name Freq PRN Reason Stop Dose Admin Acetaminophen 650 mg 12/08/18 20:16 12/11/18 23:24 Tylenol PO 650 mg Q4H PRN Administration Pain MILD(1-3)/Fever >100.5/[place] Albuterol 2.5 mg 12/08/18 20:19 12/08/18 22:13 Proventil IH 2.5 mg Q4HRT PRN Administration Shortness Of Breath Albuterol/Ipratropium 1 ampul 12/12/18 09:00 12/13/18 08:04 Duoneb *Not For Prn Use* IH 1 ampul TIDRT DEIDRA Administration Ascorbic Acid 500 mg 12/08/18 20:00 12/13/18 09:53 Vitamin C PO 500 mg QDAY DEIDRA Administration Aspirin 81 mg 12/09/18 10:00 12/13/18 09:53 Halfprin Ec PO 81 mg QDAY DEIDRA Administration Famotidine 20 mg 12/08/18 22:00 12/13/18 09:53 Pepcid PO 20 mg BID DEIDRA Administration Furosemide 40 mg 12/09/18 18:00 12/13/18 05:35 Lasix IV 40 mg 0600,1800 DEIDRA Administration Glimepiride 4 mg 12/08/18 20:00 12/13/18 09:05 Amaryl PO 4 mg QAMDIAB DEIDRA Administration Hydromorphone HCl 0.5 mg 12/08/18 20:16 Dilaudid IV Q3H PRN Pain , Severe (7-10) Ibuprofen 600 mg 12/08/18 20:16 12/12/18 08:13 Ibuprofen PO 600 mg Q6H PRN Administration Pain, Mild (1-3) Insulin Glargine 10 units 12/13/18 16:08 Lantus SUB-Q BID DEIDRA Insulin Human Lispro 0 unit 12/08/18 22:00 12/13/18 14:12 Humalog SUB-Q 8 unit ACHS DEIDRA Administration Protocol Insulin Human Lispro 15 unit 12/13/18 16:07 Humalog SUB-Q 12/13/18 16:08 ONCE ONE Magnesium Hydroxide 30 ml 12/10/18 11:03 12/10/18 11:54 Milk Of Magnesia PO 30 ml QDAY PRN Administration Constipation Methylprednisolone Sodium Succinate 80 mg 12/08/18 22:00 12/13/18 14:12 Solu-Medrol IV 80 mg Q8HR DEIDRA Administration Metolazone 5 mg 12/10/18 13:00 12/13/18 09:53 Zaroxolyn PO 5 mg QDAY DEIDRA Administration Metoprolol Tartrate 50 mg 12/08/18 22:00 12/13/18 09:53 Lopressor PO 50 mg BID DEIDRA Administration Multivitamins/Iron 1 each 12/09/18 11:00 12/13/18 09:54 Hemocyte Plus PO 1 each QDAY DEIDRA Administration Ondansetron HCl 4 mg 12/08/18 20:16 Zofran IV Q8H PRN Nausea And Vomiting Polyethylene Glycol 17 gm 12/12/18 10:00 12/13/18 09:54 Miralax 3350 PO 17 gm QDAY DEIDRA Administration Sodium Chloride 10 ml 12/08/18 22:00 12/13/18 09:55 Sodium Chloride Flush Syringe 10 Ml IV 10 ml BID DEIDRA Administration Sodium Chloride 10 ml 12/08/18 20:16 12/09/18 22:40 Sodium Chloride Flush Syringe 10 Ml IV 10 ml PRN PRN Administration LINE FLUSH Spironolactone 25 mg 12/10/18 13:00 12/13/18 09:53 Aldactone PO 25 mg QDAY DEIDRA Administration
[2018-12-13] MEDS ORDERED: HumaLOG SUB-Q ONE (17:07)
[2018-12-13] MEDS ORDERED: LANTUS SUB-Q SCH (17:08)
--- NOTE | 2018-12-13 19:32 | Progress Note ---
Assessment and Plan -Acute hypoxic respiratory failure -Bilateral infiltrates, being treated as HAP -COPD-AE -Bilateral pleural effusions -Congestive heart failure -Diabetes mellitus type 2 -A.fib/flutter Subjective Date of service: 12/13/18 Principal diagnosis: pneumonia Interval history: Patient is seen today for: Seen and examined at bedside; 24hour events reviewed; nursing and respiratory care staff consulted; no adverse overnight events reported to me; Objective Vital Signs - 12hr 12/13/18 12/13/18 12/13/18 07:43 08:05 08:08 Temperature Pulse Rate Pulse Rate [ 67 Anterior Bilateral Throughout] Respiratory Rate Respiratory 18 Rate [Anterior Bilateral Throughout] Blood Pressure Blood Pressure [Left] O2 Sat by Pulse 99 97 Oximetry 12/13/18 12/13/18 12/13/18 08:33 10:01 13:40 Temperature 97.8 F 97.6 F Pulse Rate 74 72 Pulse Rate [ 68 Anterior Bilateral Throughout] Respiratory 18 20 Rate Respiratory 18 Rate [Anterior Bilateral Throughout] Blood Pressure 129/51 Blood Pressure 128/58 [Left] O2 Sat by Pulse 100 99 Oximetry Constitutional: no acute distress, alert Eyes: non-icteric ENT: oropharynx moist Neck: supple, no lymphadenopathy, no JVD Effort: normal Ascultation: Bilateral: diminished breath sounds Cardiovascular: regular rate and rhythm Gastrointestinal: normoactive bowel sounds, soft, non-tender Integumentary: normal Extremities: no cyanosis, no edema Neurologic: normal mental status, non-focal exam, pupils equal and round Psychiatric: mood appropriate, affect normal CBC and BMP: 12/13/18 04:23 12/13/18 04:23 ABG, PT/INR, D-dimer: ABG POC ABG pH 7.415 (7.35-7.45) 12/08/18 10:07 POC ABG pCO2 37.1 (35-45) 12/08/18 10:07 POC ABG pO2 70 (80-105) L 12/08/18 10:07 POC ABG HCO3 23.8 (22-26 mml/L) 12/08/18 10:07 POC ABG Total CO2 25 (23-27mmol/L) 12/08/18 10:07 POC ABG O2 Sat 94 12/08/18 10:07 PT/INR, D-dimer PT 18.7 Sec. (12.2-14.9) H 12/08/18 09:31 INR 1.60 (0.87-1.13) H 12/08/18 09:31 Abnormal lab findings: Abnormal Labs 12/08/18 12/08/18 12/08/18 09:31 09:31 09:31 WBC 16.4 H RBC 3.32 L Hgb 9.7 L Hct 29.1 L RDW 15.6 H Plt Count Lymph % (Auto) 5.4 L [place] % (Auto) Lymph # 0.9 L [place] # 0.9 H Seg Neutrophils % 88.9 H Seg Neuts % (Manual) Lymphocytes % (Manual) Nucleated RBC % Seg Neutrophils # 14.6 H Seg Neutrophils # Man Lymphocytes # (Manual) PT INR POC ABG pO2 Sodium 132 L Potassium Chloride 96.1 L Carbon Dioxide BUN Creatinine 0.7 L Glucose 186 H POC Glucose Lactic Acid 2.50 H* Iron TIBC Total Creatine Kinase CK-MB (CK-2) NT-Pro-B Natriuret Pep Albumin Vitamin B12 Vancomycin Trough 12/08/18 12/08/18 12/08/18 09:31 09:31 09:31 WBC RBC Hgb Hct RDW Plt Count Lymph % (Auto) [place] % (Auto) Lymph # [place] # Seg Neutrophils % Seg Neuts % (Manual) Lymphocytes % (Manual) Nucleated RBC % Seg Neutrophils # Seg Neutrophils # Man Lymphocytes # (Manual) PT 18.7 H INR 1.60 H POC ABG pO2 Sodium Potassium Chloride Carbon Dioxide BUN Creatinine Glucose POC Glucose Lactic Acid Iron TIBC Total Creatine Kinase 185 H CK-MB (CK-2) 4.1 H NT-Pro-B Natriuret Pep 4456 H Albumin 3.7 L Vitamin B12 Vancomycin Trough 12/08/18 12/08/18 12/08/18 10:07 10:45 20:35 WBC RBC Hgb Hct RDW Plt Count Lymph % (Auto) [place] % (Auto) Lymph # [place] # Seg Neutrophils % Seg Neuts % (Manual) Lymphocytes % (Manual) Nucleated RBC % Seg Neutrophils # Seg Neutrophils # Man Lymphocytes # (Manual) PT INR POC ABG pO2 70 L Sodium Potassium Chloride Carbon Dioxide BUN Creatinine Glucose POC Glucose Lactic Acid 2.30 H* Iron 21 L TIBC 242 L Total Creatine Kinase CK-MB (CK-2) NT-Pro-B Natriuret Pep Albumin Vitamin B12 Vancomycin Trough 12/08/18 12/09/18 12/09/18 20:35 06:54 06:54 WBC 12.2 H RBC 3.28 L Hgb 9.4 L Hct 28.9 L RDW 16.3 H Plt Count Lymph % (Auto) 12.0 L [place] % (Auto) 8.4 H Lymph # [place] # 1.0 H Seg Neutrophils % 77.7 H Seg Neuts % (Manual) Lymphocytes % (Manual) Nucleated RBC % Seg Neutrophils # 9.5 H Seg Neutrophils # Man Lymphocytes # (Manual) PT INR POC ABG pO2 Sodium 132 L Potassium Chloride 93.8 L Carbon Dioxide BUN 6 L Creatinine 0.5 L Glucose 107 H POC Glucose Lactic Acid Iron TIBC Total Creatine Kinase CK-MB (CK-2) NT-Pro-B Natriuret Pep Albumin 3.6 L Vitamin B12 1587 H Vancomycin Trough 12/09/18 12/09/18 12/09/18 08:16 11:38 16:39 WBC RBC Hgb Hct RDW Plt Count Lymph % (Auto) [place] % (Auto) Lymph # [place] # Seg Neutrophils % Seg Neuts % (Manual) Lymphocytes % (Manual) Nucleated RBC % Seg Neutrophils # Seg Neutrophils # Man Lymphocytes # (Manual) PT INR POC ABG pO2 Sodium Potassium Chloride Carbon Dioxide BUN Creatinine Glucose POC Glucose 108 H 143 H 187 H Lactic Acid Iron TIBC Total Creatine Kinase CK-MB (CK-2) NT-Pro-B Natriuret Pep Albumin Vitamin B12 Vancomycin Trough 12/09/18 12/10/18 12/10/18 22:26 07:48 11:28 WBC RBC Hgb Hct RDW Plt Count Lymph % (Auto) [place] % (Auto) Lymph # [place] # Seg Neutrophils % Seg Neuts % (Manual) Lymphocytes % (Manual) Nucleated RBC % Seg Neutrophils # Seg Neutrophils # Man Lymphocytes # (Manual) PT INR POC ABG pO2 Sodium Potassium Chloride Carbon Dioxide BUN Creatinine Glucose POC Glucose 244 H 197 H 267 H Lactic Acid Iron TIBC Total Creatine Kinase CK-MB (CK-2) NT-Pro-B Natriuret Pep Albumin Vitamin B12 Vancomycin Trough 12/10/18 12/10/18 12/11/18 16:28 22:01 04:47 WBC 17.3 H RBC 3.41 L Hgb 9.8 L Hct 29.5 L RDW 16.0 H Plt Count 451 H Lymph % (Auto) [place] % (Auto) Lymph # [place] # Seg Neutrophils % Seg Neuts % (Manual) 93.0 H Lymphocytes % (Manual) 4.0 L Nucleated RBC % 1.0 H Seg Neutrophils # Seg Neutrophils # Man 16.1 H Lymphocytes # (Manual) 0.7 L PT INR POC ABG pO2 Sodium Potassium Chloride Carbon Dioxide BUN Creatinine Glucose POC Glucose 227 H 249 H Lactic Acid Iron TIBC Total Creatine Kinase CK-MB (CK-2) NT-Pro-B Natriuret Pep Albumin Vitamin B12 Vancomycin Trough 12/11/18 12/11/18 12/11/18 04:47 07:24 11:34 WBC RBC Hgb Hct RDW Plt Count Lymph % (Auto) [place] % (Auto) Lymph # [place] # Seg Neutrophils % Seg Neuts % (Manual) Lymphocytes % (Manual) Nucleated RBC % Seg Neutrophils # Seg Neutrophils # Man Lymphocytes # (Manual) PT INR POC ABG pO2 Sodium 133 L Potassium Chloride 89.6 L Carbon Dioxide 31 H BUN Creatinine 0.6 L Glucose 218 H POC Glucose 206 H 206 H Lactic Acid Iron TIBC Total Creatine Kinase CK-MB (CK-2) NT-Pro-B Natriuret Pep Albumin Vitamin B12 Vancomycin Trough 12/11/18 12/11/18 12/11/18 16:29 20:41 21:05 WBC RBC Hgb Hct RDW Plt Count Lymph % (Auto) [place] % (Auto) Lymph # [place] # Seg Neutrophils % Seg Neuts % (Manual) Lymphocytes % (Manual) Nucleated RBC % Seg Neutrophils # Seg Neutrophils # Man Lymphocytes # (Manual) PT INR POC ABG pO2 Sodium Potassium Chloride Carbon Dioxide BUN Creatinine Glucose POC Glucose 344 H 440 H Lactic Acid Iron TIBC Total Creatine Kinase CK-MB (CK-2) NT-Pro-B Natriuret Pep Albumin Vitamin B12 Vancomycin Trough 21.1 H 12/12/18 12/12/18 12/12/18 07:33 12:22 16:47 WBC RBC Hgb Hct RDW Plt Count Lymph % (Auto) [place] % (Auto) Lymph # [place] # Seg Neutrophils % Seg Neuts % (Manual) Lymphocytes % (Manual) Nucleated RBC % Seg Neutrophils # Seg Neutrophils # Man Lymphocytes # (Manual) PT INR POC ABG pO2 Sodium Potassium Chloride Carbon Dioxide BUN Creatinine Glucose POC Glucose 200 H 324 H 290 H Lactic Acid Iron TIBC Total Creatine Kinase CK-MB (CK-2) NT-Pro-B Natriuret Pep Albumin Vitamin B12 Vancomycin Trough 12/12/18 12/13/18 12/13/18 21:41 04:23 04:23 WBC 16.5 H RBC Hgb 11.6 L Hct 35.3 L RDW 16.4 H Plt Count 497 H Lymph % (Auto) 5.5 L [place] % (Auto) Lymph # 0.9 L [place] # 0.9 H Seg Neutrophils % 88.8 H Seg Neuts % (Manual) Lymphocytes % (Manual) Nucleated RBC % Seg Neutrophils # 14.7 H Seg Neutrophils # Man Lymphocytes # (Manual) PT INR POC ABG pO2 Sodium 128 L Potassium 5.3 H D Chloride 79.5 L Carbon Dioxide 35 H BUN Creatinine 0.6 L Glucose 268 H POC Glucose 327 H Lactic Acid Iron TIBC Total Creatine Kinase CK-MB (CK-2) NT-Pro-B Natriuret Pep Albumin Vitamin B12 Vancomycin Trough 12/13/18 12/13/18 12/13/18 08:43 11:26 15:43 WBC RBC Hgb Hct RDW Plt Count Lymph % (Auto) [place] % (Auto) Lymph # [place] # Seg Neutrophils % Seg Neuts % (Manual) Lymphocytes % (Manual) Nucleated RBC % Seg Neutrophils # Seg Neutrophils # Man Lymphocytes # (Manual) PT INR POC ABG pO2 Sodium Potassium Chloride Carbon Dioxide BUN Creatinine Glucose POC Glucose 290 H 357 H 384 H Lactic Acid Iron TIBC Total Creatine Kinase CK-MB (CK-2) NT-Pro-B Natriuret Pep Albumin Vitamin B12 Vancomycin Trough
[2018-12-14] MEDS: LASIX IV SCH ×2 (06:26→20:05)
[2018-12-14] MEDS: DUONEB *Not for PRN Use IH SCH ×3 (07:42→20:21)
[2018-12-14 09:06] LABS: INR 1.11 (0.87-1.13)
[2018-12-14 09:24] LABS: BUN/Creatinine Ratio 27; Blood Urea Nitrogen 19 mg/dL (9-20); Calcium 9.3 mg/dL (8.4-10.2); Hemolysis Index 18
[2018-12-14] MEDS: HumaLOG SUB-Q SCH ×4 (11:14→23:14)
[2018-12-14] MEDS: MIRALAX 3350 PO SCH (11:15)
[2018-12-14] MEDS: AMARYL PO SCH (11:15)
[2018-12-14] MEDS: ZAROXOLYN PO SCH (11:15)
[2018-12-14] MEDS: PEPCID PO SCH ×2 (11:15→23:14)
[2018-12-14] MEDS: VITAMIN C PO SCH (11:15)
[2018-12-14] MEDS: HALFPRIN EC PO SCH (11:15)
[2018-12-14] MEDS: HEMOCYTE PLUS PO SCH (11:15)
[2018-12-14] MEDS: LOPRESSOR PO SCH ×2 (11:15→23:15)
[2018-12-14] MEDS: SODIUM CHLORIDE FLUSH SYRINGE 10 ML IV SCH ×2 (11:18→23:16)
--- NOTE | 2018-12-14 12:17 | Progress Note ---
Assessment and Plan COPD exacerbation on home oxygen Pneumonia Chronic systolic heart failure Leukocytosis may likely be related to the ongoing high-dose therapy with intravenous methyl prednisolone. Bilateral pulmonary emboli on eliquis for oral anticoagulation therapy Paroxysmal atrial flutter amiodarone toxicity has been suggested, we will discontinue amiodarone. on metoprolol for suppression Cardiomyopathy MPI 04/2018 - small fixed inferior wall defect Hypertension Diabetes Valvular heart lesions Echocardiogram 10/09/18 shows left ventricular ejection fraction 45%, mild mitral stenosis, 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 Recommendations: Medical therapy for heart failure and paroxysmal afib. Fluid/salt restriction. Right and left heart catheterization, rescheduled for tomorrow morning. Subjective Date of service: 12/14/18 Principal diagnosis: pneumonia Interval history: Patient is resting in bed comfortably. He denies chest pain and reports his breathing is better. Cardiac cath has been rescheduled for tomorrow. Objective Vital Signs Temp Pulse Pulse Resp Resp BP BP 12/14/18 08:15 20 12/14/18 07:58 69 18 12/14/18 07:43 12/14/18 02:37 90/25 12/14/18 02:32 97.8 F 62 20 129/62 12/13/18 23:39 69 12/13/18 22:00 20 12/13/18 21:52 67 123/65 12/13/18 20:54 12/13/18 20:52 70 20 12/13/18 19:39 98.3 F 67 20 123/65 12/13/18 13:40 97.6 F 72 20 128/58 12/13/18 13:35 97.6 F 69 20 123/52 Pulse Ox 12/14/18 08:15 99 12/14/18 07:58 12/14/18 07:43 100 12/14/18 02:37 12/14/18 02:32 99 12/13/18 23:39 12/13/18 22:00 100 12/13/18 21:52 12/13/18 20:54 99 12/13/18 20:52 12/13/18 19:39 100 12/13/18 13:40 99 12/13/18 13:35 99 - Physical Examination General: No Apparent Distress HEENT: Positive: PERRL Neck: Positive: trachea midline Cardiac: Positive: Reg Rate and Rhythm Neuro: Positive: Grossly Intact Abdomen: Positive: Soft Skin: Positive: Clear Extremities: Absent: edema - Labs and Meds Coagulation 12/14/18 Range/Units 08:46 PT 14.0 (12.2-14.9) Sec. INR 1.11 (0.87-1.13) Comprehensive Metabolic Panel 12/14/18 Range/Units 08:46 Sodium 132 L (137-145) mmol/L Potassium 3.6 D (3.6-5.0) mmol/L Chloride 78.1 L (98-107) mmol/L Carbon Dioxide 43 H* D (22-30) mmol/L BUN 19 (9-20) mg/dL Creatinine 0.7 L (0.8-1.5) mg/dL Glucose 213 H (75-100) mg/dL Calcium 9.3 (8.4-10.2) mg/dL
--- NOTE | 2018-12-14 14:06 | Progress Note ---
Assessment and Plan Assessment and plan: This is an 78-year old male with multiple medical problems. 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 Patient is on home O2. He also has paroxysmal atrial flutter, a history of bilateral PE, on Eliquis for oral anticoagulation. Patient presents with shortness of breath, coughs, leukocytosis, admitted with COPD exacerbation, Pneumonia and decompensated heart failure. Patient denies chest pain and palpitations. There is no lower extremity edema. ECG is sinus rhythm, no acute ischemic changes. A cardiology consulted Acute hypoxic respiratory failure, COPD exacerbation sp steroids, now dc, duo nebs, nebulizer treatments, oxygen support, continue antibiotics Bilateral pleural effusion - Chest ultrasound was done - Pulmonary consulted DM2 with persistent hyperglycemia -a1c is 5.4, so high glc is due to steroids dc steroids, was bolused with insulin. cont ssi Sepsis secondary to Bilateral pneumonia completed abx on 12/12 History of PE - Continue eliquis Paroxysmal atrial flutter - Controlled, continue eliquis, Cardiomyopathy, chronic systolic CHF with acute exacerbation - Patient is on IV Lasix, Right and left cath on friday - Cardiology consulted and recommend to continue diurese the patient and right and left heart cath on Friday DVT prophylaxis Disposition; continue inpatient care. Right and left cath on friday History Interval history: Patient was seen and evaluated this morning, patient's SOB is getting better. Hospitalist Physical - Physical exam Narrative exam: Patient is in moderate respiratory distress. The patient appeared well nourished and normally developed. Vital signs as documented. Head exam is unremarkable. No scleral icterus . Neck is without jugular venous distension, thyromegaly, or carotid bruits. Lung decrease air entry bilaterally. Cardiac exam reveals irregular rate and Rhythm. Abdominal exam reveals normal bowel sounds, no masses, no organomegaly and no aortic enlargement. Extremities are nonedematous and both femoral and pedal pulses are normal. MOUNTER CLARINETS: Alert and oriented 3. No focal weakness. Hospitalist Physical - Constitutional Vitals: Temp Pulse Resp BP Pulse Ox 97.8 F 69 20 90/25 99 12/14/18 02:32 12/14/18 07:58 12/14/18 08:15 12/14/18 02:37 12/14/18 08:15 General appearance: Present: no acute distress Results - Labs CBC & Chem 7: 12/13/18 04:23 12/14/18 08:46 Labs: Laboratory Last Values WBC 16.5 K/mm3 (4.5-11.0) H 12/13/18 04:23 RBC 4.07 M/mm3 (3.65-5.03) 12/13/18 04:23 Hgb 11.6 gm/dl (11.8-15.2) L 12/13/18 04:23 Hct 35.3 % (35.5-45.6) L 12/13/18 04:23 MCV 87 fl (84-94) 12/13/18 04:23 MCH 29 pg (28-32) 12/13/18 04:23 MCHC 33 % (32-34) 12/13/18 04:23 RDW 16.4 % (13.2-15.2) H 12/13/18 04:23 Plt Count 497 K/mm3 (140-440) H 12/13/18 04:23 Lymph % (Auto) 5.5 % (13.4-35.0) L 12/13/18 04:23 [place] % (Auto) 5.4 % (0.0-7.3) 12/13/18 04:23 Eos % (Auto) 0.1 % (0.0-4.3) 12/13/18 04:23 Baso % (Auto) 0.2 % (0.0-1.8) 12/13/18 04:23 Lymph # 0.9 K/mm3 (1.2-5.4) L 12/13/18 04:23 [place] # 0.9 K/mm3 (0.0-0.8) H 12/13/18 04:23 Eos # 0.0 K/mm3 (0.0-0.4) 12/13/18 04:23 Baso # 0.0 K/mm3 (0.0-0.1) 12/13/18 04:23 Add Manual Diff Complete 12/11/18 04:47 Total Counted 100 12/11/18 04:47 Seg Neutrophils % 88.8 % (40.0-70.0) H 12/13/18 04:23 Seg Neuts % (Manual) 93.0 % (40.0-70.0) H 12/11/18 04:47 0 % 12/11/18 04:47 4.0 % (13.4-35.0) L 12/11/18 04:47 Reactive Lymphs % (Man) 0 % 12/11/18 04:47 3.0 % (0.0-7.3) 12/11/18 04:47 0 % (0.0-4.3) 12/11/18 04:47 0 % (0.0-1.8) 12/11/18 04:47 0 % 12/11/18 04:47 0 % 12/11/18 04:47 0 % 12/11/18 04:47 0 % 12/11/18 04:47 Nucleated RBC % 1.0 % (0.0-0.9) H 12/11/18 04:47 Seg Neutrophils # 14.7 K/mm3 (1.8-7.7) H 12/13/18 04:23 Seg Neutrophils # Man 16.1 K/mm3 (1.8-7.7) H 12/11/18 04:47 Band Neutrophils # 0.0 K/mm3 12/11/18 04:47 0.7 K/mm3 (1.2-5.4) L 12/11/18 04:47 Abs React Lymphs (Man) 0.0 K/mm3 12/11/18 04:47 0.5 K/mm3 (0.0-0.8) 12/11/18 04:47 0.0 K/mm3 (0.0-0.4) 12/11/18 04:47 0.0 K/mm3 (0.0-0.1) 12/11/18 04:47 0.0 K/mm3 12/11/18 04:47 0.0 K/mm3 12/11/18 04:47 0.0 K/mm3 12/11/18 04:47 Blast Cells # 0.0 K/mm3 12/11/18 04:47 WBC Morphology Not Reportable 12/11/18 04:47 Hypersegmented Neuts Not Reportable 12/11/18 04:47 Hyposegmented Neuts Not Reportable 12/11/18 04:47 Hypogranular Neuts Not Reportable 12/11/18 04:47 Not Reportable 12/11/18 04:47 2+ 12/11/18 04:47 Not Reportable 12/11/18 04:47 Not Reportable 12/11/18 04:47 Not Reportable 12/11/18 04:47 Not Reportable 12/11/18 04:47 Consistent w auto 12/11/18 04:47 Not Reportable 12/11/18 04:47 Plt Clumps, EDTA Not Reportable 12/11/18 04:47 Not Reportable 12/11/18 04:47 Not Reportable 12/11/18 04:47 Not Reportable 12/11/18 04:47 Plt Morphology Comment Not Reportable 12/11/18 04:47 RBC Morphology Not Reportable 12/11/18 04:47 Dimorphic RBCs Not Reportable 12/11/18 04:47 Not Reportable 12/11/18 04:47 Not Reportable 12/11/18 04:47 Not Reportable 12/11/18 04:47 1+ 12/11/18 04:47 Not Reportable 12/11/18 04:47 Not Reportable 12/11/18 04:47 Not Reportable 12/11/18 04:47 Not Reportable 12/11/18 04:47 Not Reportable 12/11/18 04:47 Not Reportable 12/11/18 04:47 Not Reportable 12/11/18 04:47 Not Reportable 12/11/18 04:47 Not Reportable 12/11/18 04:47 Not Reportable 12/11/18 04:47 Not Reportable 12/11/18 04:47 Not Reportable 12/11/18 04:47 Not Reportable 12/11/18 04:47 Not Reportable 12/11/18 04:47 Not Reportable 12/11/18 04:47 Acanthocytes (Spur) Not Reportable 12/11/18 04:47 Rouleaux Not Reportable 12/11/18 04:47 Not Reportable 12/11/18 04:47 Not Reportable 12/11/18 04:47 Not Reportable 12/11/18 04:47 Not Reportable 12/11/18 04:47 Hem Pathologist Commnt No 12/11/18 04:47 PT 14.0 Sec. (12.2-14.9) 12/14/18 08:46 INR 1.11 (0.87-1.13) 12/14/18 08:46 APTT 34.5 Sec. (24.2-36.6) 12/08/18 09:31 POC ABG pH 7.415 (7.35-7.45) 12/08/18 10:07 POC ABG pCO2 37.1 (35-45) 12/08/18 10:07 POC ABG pO2 70 (80-105) L 12/08/18 10:07 POC ABG HCO3 23.8 (22-26 mml/L) 12/08/18 10:07 POC ABG Total CO2 25 (23-27mmol/L) 12/08/18 10:07 POC ABG O2 Sat 94 12/08/18 10:07 POC ABG Base Excess -1 ((-2) - (+3)mmol/L) 12/08/18 10:07 32 % 12/08/18 10:07 Sodium 132 mmol/L (137-145) L 12/14/18 08:46 Potassium 3.6 mmol/L (3.6-5.0) D 12/14/18 08:46 Chloride 78.1 mmol/L (98-107) L 12/14/18 08:46 Carbon Dioxide 43 mmol/L (22-30) H* D 12/14/18 08:46 15 mmol/L 12/14/18 08:46 BUN 19 mg/dL (9-20) 12/14/18 08:46 0.7 mg/dL (0.8-1.5) L 12/14/18 08:46 Estimated GFR > 60 ml/min 12/14/18 08:46 27 % 12/14/18 08:46 Glucose 213 mg/dL (75-100) H 12/14/18 08:46 POC Glucose 207 (70-105) H 12/14/18 12:04 5.2 % (4-6) 12/08/18 20:35 Lactic Acid 1.30 mmol/L (0.7-2.0) 12/08/18 11:56 Calcium 9.3 mg/dL (8.4-10.2) 12/14/18 08:46 Magnesium 1.80 mg/dL (1.7-2.3) 12/08/18 09:31 Iron 21 ug/dL (49-181) L 12/08/18 20:35 TIBC 242 mcg/dL (250-450) L 12/08/18 20:35 % Saturation 8.68 % 12/08/18 20:35 199 mg/dl (180-329) 12/08/18 20:35 0.40 mg/dL (0.1-1.2) 12/09/18 06:54 < 0.2 mg/dL (0-0.2) 12/08/18 09:31 0.2 mg/dL 12/08/18 09:31 AST 15 units/L (5-40) 12/09/18 06:54 ALT 14 units/L (7-56) 12/09/18 06:54 51 units/L (35-129) 12/09/18 06:54 185 units/L (55-170) H 12/08/18 09:31 CK-MB (CK-2) 4.1 ng/mL (0.0-4.0) H 12/08/18 09:31 CK-MB (CK-2) Rel Index 2.2 (0-4) 12/08/18 09:31 < 0.010 ng/mL (0.00-0.029) 12/08/18 09:31 NT-Pro-B Natriuret Pep 4456 pg/mL (0-900) H 12/08/18 09:31 6.7 g/dL (6.3-8.2) 12/09/18 06:54 3.6 g/dL (3.9-5) L 12/09/18 06:54 1.2 % 12/09/18 06:54 Vitamin B12 1587 pg/mL (211-911) H 12/08/18 20:35 Dark yellow (Yellow) 12/08/18 17:22 Cloudy (Clear) 12/08/18 17:22 5.0 (5.0-7.0) 12/08/18 17:22 Ur Specific [place] 1.013 (1.003-1.030) 12/08/18 17:22 <15 mg/dl mg/dL (Negative) 12/08/18 17:22 Neg mg/dL (Negative) 12/08/18 17:22 Neg mg/dL (Negative) 12/08/18 17:22 Neg (Negative) 12/08/18 17:22 Neg (Negative) 12/08/18 17:22 Neg (Negative) 12/08/18 17:22 < 2.0 mg/dL (<2.0) 12/08/18 17:22 Ur Leukocyte Esterase Neg (Negative) 12/08/18 17:22 1.0 /HPF (0.0-6.0) 12/08/18 17:22 4.0 /HPF (0.0-6.0) 12/08/18 17:22 U Epithel Cells (Auto) < 1.0 /HPF (0-13.0) 12/08/18 17:22 Few /HPF 12/08/18 17:22 Vancomycin Trough 21.1 ug/mL (5.0-20.0) H 12/11/18 20:41 Active Medications - Current Medications Current Medications: Generic Name Dose Route Start Last Admin Trade Name Freq PRN Reason Stop Dose Admin Acetaminophen 650 mg 12/08/18 20:16 12/11/18 23:24 Tylenol PO 650 mg Q4H PRN Administration Pain MILD(1-3)/Fever >100.5/[place] Albuterol 2.5 mg 12/08/18 20:19 12/08/18 22:13 Proventil IH 2.5 mg Q4HRT PRN Administration Shortness Of Breath Albuterol/Ipratropium 1 ampul 12/12/18 09:00 12/14/18 07:42 Duoneb *Not For Prn Use* IH 1 ampul TIDRT DEIDRA Administration Ascorbic Acid 500 mg 12/08/18 20:00 12/14/18 11:15 Vitamin C PO Not Given QDAY DEIDRA Aspirin 81 mg 12/09/18 10:00 12/14/18 11:15 Halfprin Ec PO Not Given QDAY DEIDRA Famotidine 20 mg 12/08/18 22:00 12/14/18 11:15 Pepcid PO Not Given BID DEIDRA Furosemide 40 mg 12/09/18 18:00 12/14/18 06:26 Lasix IV 40 mg 0600,1800 DEIDRA Administration Glimepiride 4 mg 12/08/18 20:00 12/14/18 11:15 Amaryl PO Not Given QAMDIAB [facility] Hydromorphone HCl 0.5 mg 12/08/18 20:16 Dilaudid IV Q3H PRN Pain , Severe (7-10) Ibuprofen 600 mg 12/08/18 20:16 12/12/18 08:13 Ibuprofen PO 600 mg Q6H PRN Administration Pain, Mild (1-3) Insulin Human Lispro 0 unit 12/08/18 22:00 12/14/18 12:30 Humalog SUB-Q 3 unit ACHS [facility] Administration Protocol Magnesium Hydroxide 30 ml 12/10/18 11:03 12/10/18 11:54 Milk Of Magnesia PO 30 ml QDAY PRN Administration Constipation Metolazone 5 mg 12/10/18 13:00 12/14/18 11:15 Zaroxolyn PO Not Given QDAY [facility] Metoprolol Tartrate 50 mg 12/08/18 22:00 12/14/18 11:15 Lopressor PO Not Given BID [facility] Multivitamins/Iron 1 each 12/09/18 11:00 12/14/18 11:15 Hemocyte Plus PO Not Given QDAY [facility] Ondansetron HCl 4 mg 12/08/18 20:16 Zofran IV Q8H PRN Nausea And Vomiting Polyethylene Glycol 17 gm 12/12/18 10:00 12/14/18 11:15 Miralax 3350 PO Not Given QDAY [facility] Sodium Chloride 10 ml 12/08/18 22:00 12/14/18 11:18 Sodium Chloride Flush Syringe 10 Ml IV Not Given BID [facility] Sodium Chloride 10 ml 12/08/18 20:16 12/09/18 22:40 Sodium Chloride Flush Syringe 10 Ml IV 10 ml PRN PRN Administration LINE FLUSH Spironolactone 25 mg 12/10/18 13:00 12/13/18 09:53 Aldactone PO 25 mg QDAY [facility] Administration
--- NOTE | 2018-12-14 19:13 | Progress Note ---
Assessment and Plan PULMONARY AND CRITICAL CARE CONSULTATION. DR. MACK THANK YOU FOR ASKING US TO PARTICIPATE IN THE CARE OF THIS PATIENT. Assessment 78-year-old AAM with a history of diabetes, COPD, CHF. He was discharged from the hospital ([facility] yesterday. His doctor states that she did not feel that he was ready for discharge because he still had respiratory distress. Patient did give himself a nebulizer treatment today but he is still short of breath. He states he's been coughing green sputum. He did not report fever. He is a limited historian but able to answer direct questions. He is not complaining of chest pain. It appears he was treated for CHF and COPD during the last hospitalization but not pneumonia. Patient complains of feeling weak. No acute respiratory distress at this time. Patient is on 2 L O2 via nasal canula. O2 saturation is 97%. Patient has history of smoking, alcohol abuse in the past. However, he stopped many years ago. 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 Patient is not . He has 8 children. 12/14/18 Patient complaining abdominal and leg pain. Says breathing Ok. On 2 litres o2. O2 saturation 98%. Patient afebrile but has leukocytosis. Patient weak. No acute respiratory distress. - Patient Problems (1) Bilateral pneumonia Current Visit: Yes Status: Acute Qualifiers: Pneumonia type: due to unspecified organism Lung location: unspecified part of lung Qualified Code(s): J18.9 - Pneumonia, unspecified organism Plan to address problem: Patient treated with cefepime and Vancomycin. (2) COPD (chronic obstructive pulmonary disease) Current Visit: Yes Status: Acute Qualifiers: COPD type: unspecified COPD Qualified Code(s): J44.9 - Chronic obstructive pulmonary disease, unspecified Plan to address problem: Oxygen supplementation of 2 L O2 via nasal canula. Albuterol/ Atrovent aerosol treatment q 6 hours. Continue IV Solumedrol. Recommend SCDs Continue Famotidine. (3) Cardiomyopathy Current Visit: Yes Status: Acute Qualifiers: Cardiomyopathy type: unspecified Qualified Code(s): I42.9 - Cardiomyopathy, unspecified Plan to address problem: Management as per Cardiology. (4) CHF (congestive heart failure) Current Visit: No Status: Acute Qualifiers: Heart failure type: systolic Heart failure chronicity: acute on chronic Qualified Code(s): I50.23 - Acute on chronic systolic (congestive) heart failure Plan to address problem: Management as per Cardiology. (5) Diabetes Current Visit: No Status: Acute Plan to address problem: Management as per primary care. (6) Pleural effusion, bilateral Current Visit: No Status: Acute Plan to address problem: Ultrasound of the chest reported small to moderate bilateral pleural effusions. (7) Pulmonary edema Current Visit: No Status: Acute Plan to address problem: Patient is receiving lasix. Management as per primary care and cardiology. (8) Acute respiratory failure with hypoxia Current Visit: No Status: Acute Plan to address problem: Oxygen supplementation of 2 L O2 via nasal canula. Albuterol/ Atrovent aerosol treatment q 6 hours. Continue IV Solumedrol. SCDs Continue Famotidine. Subjective Date of service: 12/14/18 Principal diagnosis: pneumonia Interval history: Patient complaining abdominal and leg pain. Says breathing Ok. On 2 litres o2. O2 saturation 98%. Patient afebrile but has leukocytosis. Patient weak. No acute respiratory distress. Objective Vital Signs - 12hr 12/14/18 12/14/18 12/14/18 07:34 07:43 07:58 Temperature 98.0 F Pulse Rate 76 Pulse Rate [ 69 Anterior Bilateral Throughout] Respiratory 18 Rate Respiratory 18 Rate [Anterior Bilateral Throughout] Blood Pressure 122/69 O2 Sat by Pulse 99 100 Oximetry 12/14/18 12/14/18 12/14/18 08:15 15:33 19:08 Temperature 98.0 F 98.1 F Pulse Rate 80 79 Pulse Rate [ Anterior Bilateral Throughout] Respiratory 20 18 18 Rate Respiratory Rate [Anterior Bilateral Throughout] Blood Pressure 139/60 132/64 O2 Sat by Pulse 99 100 98 Oximetry Constitutional: no acute distress, alert Eyes: non-icteric ENT: oropharynx moist Neck: supple, no lymphadenopathy, no JVD Effort: normal Ascultation: Bilateral: diminished breath sounds Cardiovascular: regular rate and rhythm Gastrointestinal: normoactive bowel sounds, soft, non-tender Integumentary: normal Extremities: no cyanosis, no edema Neurologic: normal mental status, non-focal exam, pupils equal and round Psychiatric: mood appropriate, affect normal CBC and BMP: 12/13/18 04:23 12/14/18 08:46 ABG, PT/INR, D-dimer: ABG POC ABG pH 7.415 (7.35-7.45) 12/08/18 10:07 POC ABG pCO2 37.1 (35-45) 12/08/18 10:07 POC ABG pO2 70 (80-105) L 12/08/18 10:07 POC ABG HCO3 23.8 (22-26 mml/L) 12/08/18 10:07 POC ABG Total CO2 25 (23-27mmol/L) 12/08/18 10:07 POC ABG O2 Sat 94 12/08/18 10:07 PT/INR, D-dimer PT 14.0 Sec. (12.2-14.9) 12/14/18 08:46 INR 1.11 (0.87-1.13) 12/14/18 08:46 Abnormal lab findings: Abnormal Labs 12/08/18 12/08/18 12/08/18 09:31 09:31 09:31 WBC 16.4 H RBC 3.32 L Hgb 9.7 L Hct 29.1 L RDW 15.6 H Plt Count Lymph % (Auto) 5.4 L [place] % (Auto) Lymph # 0.9 L [place] # 0.9 H Seg Neutrophils % 88.9 H Seg Neuts % (Manual) Lymphocytes % (Manual) Nucleated RBC % Seg Neutrophils # 14.6 H Seg Neutrophils # Man Lymphocytes # (Manual) PT INR POC ABG pO2 Sodium 132 L Potassium Chloride 96.1 L Carbon Dioxide BUN Creatinine 0.7 L Glucose 186 H POC Glucose Lactic Acid 2.50 H* Iron TIBC Total Creatine Kinase CK-MB (CK-2) NT-Pro-B Natriuret Pep Albumin Vitamin B12 Vancomycin Trough 12/08/18 12/08/18 12/08/18 09:31 09:31 09:31 WBC RBC Hgb Hct RDW Plt Count Lymph % (Auto) [place] % (Auto) Lymph # [place] # Seg Neutrophils % Seg Neuts % (Manual) Lymphocytes % (Manual) Nucleated RBC % Seg Neutrophils # Seg Neutrophils # Man Lymphocytes # (Manual) PT 18.7 H INR 1.60 H POC ABG pO2 Sodium Potassium Chloride Carbon Dioxide BUN Creatinine Glucose POC Glucose Lactic Acid Iron TIBC Total Creatine Kinase 185 H CK-MB (CK-2) 4.1 H NT-Pro-B Natriuret Pep 4456 H Albumin 3.7 L Vitamin B12 Vancomycin Trough 12/08/18 12/08/18 12/08/18 10:07 10:45 20:35 WBC RBC Hgb Hct RDW Plt Count Lymph % (Auto) [place] % (Auto) Lymph # [place] # Seg Neutrophils % Seg Neuts % (Manual) Lymphocytes % (Manual) Nucleated RBC % Seg Neutrophils # Seg Neutrophils # Man Lymphocytes # (Manual) PT INR POC ABG pO2 70 L Sodium Potassium Chloride Carbon Dioxide BUN Creatinine Glucose POC Glucose Lactic Acid 2.30 H* Iron 21 L TIBC 242 L Total Creatine Kinase CK-MB (CK-2) NT-Pro-B Natriuret Pep Albumin Vitamin B12 Vancomycin Trough 12/08/18 12/09/18 12/09/18 20:35 06:54 06:54 WBC 12.2 H RBC 3.28 L Hgb 9.4 L Hct 28.9 L RDW 16.3 H Plt Count Lymph % (Auto) 12.0 L [place] % (Auto) 8.4 H Lymph # [place] # 1.0 H Seg Neutrophils % 77.7 H Seg Neuts % (Manual) Lymphocytes % (Manual) Nucleated RBC % Seg Neutrophils # 9.5 H Seg Neutrophils # Man Lymphocytes # (Manual) PT INR POC ABG pO2 Sodium 132 L Potassium Chloride 93.8 L Carbon Dioxide BUN 6 L Creatinine 0.5 L Glucose 107 H POC Glucose Lactic Acid Iron TIBC Total Creatine Kinase CK-MB (CK-2) NT-Pro-B Natriuret Pep Albumin 3.6 L Vitamin B12 1587 H Vancomycin Trough 12/09/18 12/09/18 12/09/18 08:16 11:38 16:39 WBC RBC Hgb Hct RDW Plt Count Lymph % (Auto) [place] % (Auto) Lymph # [place] # Seg Neutrophils % Seg Neuts % (Manual) Lymphocytes % (Manual) Nucleated RBC % Seg Neutrophils # Seg Neutrophils # Man Lymphocytes # (Manual) PT INR POC ABG pO2 Sodium Potassium Chloride Carbon Dioxide BUN Creatinine Glucose POC Glucose 108 H 143 H 187 H Lactic Acid Iron TIBC Total Creatine Kinase CK-MB (CK-2) NT-Pro-B Natriuret Pep Albumin Vitamin B12 Vancomycin Trough 12/09/18 12/10/18 12/10/18 22:26 07:48 11:28 WBC RBC Hgb Hct RDW Plt Count Lymph % (Auto) [place] % (Auto) Lymph # [place] # Seg Neutrophils % Seg Neuts % (Manual) Lymphocytes % (Manual) Nucleated RBC % Seg Neutrophils # Seg Neutrophils # Man Lymphocytes # (Manual) PT INR POC ABG pO2 Sodium Potassium Chloride Carbon Dioxide BUN Creatinine Glucose POC Glucose 244 H 197 H 267 H Lactic Acid Iron TIBC Total Creatine Kinase CK-MB (CK-2) NT-Pro-B Natriuret Pep Albumin Vitamin B12 Vancomycin Trough 12/10/18 12/10/18 12/11/18 16:28 22:01 04:47 WBC 17.3 H RBC 3.41 L Hgb 9.8 L Hct 29.5 L RDW 16.0 H Plt Count 451 H Lymph % (Auto) [place] % (Auto) Lymph # [place] # Seg Neutrophils % Seg Neuts % (Manual) 93.0 H Lymphocytes % (Manual) 4.0 L Nucleated RBC % 1.0 H Seg Neutrophils # Seg Neutrophils # Man 16.1 H Lymphocytes # (Manual) 0.7 L PT INR POC ABG pO2 Sodium Potassium Chloride Carbon Dioxide BUN Creatinine Glucose POC Glucose 227 H 249 H Lactic Acid Iron TIBC Total Creatine Kinase CK-MB (CK-2) NT-Pro-B Natriuret Pep Albumin Vitamin B12 Vancomycin Trough 12/11/18 12/11/18 12/11/18 04:47 07:24 11:34 WBC RBC Hgb Hct RDW Plt Count Lymph % (Auto) [place] % (Auto) Lymph # [place] # Seg Neutrophils % Seg Neuts % (Manual) Lymphocytes % (Manual) Nucleated RBC % Seg Neutrophils # Seg Neutrophils # Man Lymphocytes # (Manual) PT INR POC ABG pO2 Sodium 133 L Potassium Chloride 89.6 L Carbon Dioxide 31 H BUN Creatinine 0.6 L Glucose 218 H POC Glucose 206 H 206 H Lactic Acid Iron TIBC Total Creatine Kinase CK-MB (CK-2) NT-Pro-B Natriuret Pep Albumin Vitamin B12 Vancomycin Trough 12/11/18 12/11/18 12/11/18 16:29 20:41 21:05 WBC RBC Hgb Hct RDW Plt Count Lymph % (Auto) [place] % (Auto) Lymph # [place] # Seg Neutrophils % Seg Neuts % (Manual) Lymphocytes % (Manual) Nucleated RBC % Seg Neutrophils # Seg Neutrophils # Man Lymphocytes # (Manual) PT INR POC ABG pO2 Sodium Potassium Chloride Carbon Dioxide BUN Creatinine Glucose POC Glucose 344 H 440 H Lactic Acid Iron TIBC Total Creatine Kinase CK-MB (CK-2) NT-Pro-B Natriuret Pep Albumin Vitamin B12 Vancomycin Trough 21.1 H 12/12/18 12/12/18 12/12/18 07:33 12:22 16:47 WBC RBC Hgb Hct RDW Plt Count Lymph % (Auto) [place] % (Auto) Lymph # [place] # Seg Neutrophils % Seg Neuts % (Manual) Lymphocytes % (Manual) Nucleated RBC % Seg Neutrophils # Seg Neutrophils # Man Lymphocytes # (Manual) PT INR POC ABG pO2 Sodium Potassium Chloride Carbon Dioxide BUN Creatinine Glucose POC Glucose 200 H 324 H 290 H Lactic Acid Iron TIBC Total Creatine Kinase CK-MB (CK-2) NT-Pro-B Natriuret Pep Albumin Vitamin B12 Vancomycin Trough 12/12/18 12/13/18 12/13/18 21:41 04:23 04:23 WBC 16.5 H RBC Hgb 11.6 L Hct 35.3 L RDW 16.4 H Plt Count 497 H Lymph % (Auto) 5.5 L [place] % (Auto) Lymph # 0.9 L [place] # 0.9 H Seg Neutrophils % 88.8 H Seg Neuts % (Manual) Lymphocytes % (Manual) Nucleated RBC % Seg Neutrophils # 14.7 H Seg Neutrophils # Man Lymphocytes # (Manual) PT INR POC ABG pO2 Sodium 128 L Potassium 5.3 H D Chloride 79.5 L Carbon Dioxide 35 H BUN Creatinine 0.6 L Glucose 268 H POC Glucose 327 H Lactic Acid Iron TIBC Total Creatine Kinase CK-MB (CK-2) NT-Pro-B Natriuret Pep Albumin Vitamin B12 Vancomycin Trough 12/13/18 12/13/18 12/13/18 08:43 11:26 15:43 WBC RBC Hgb Hct RDW Plt Count Lymph % (Auto) [place] % (Auto) Lymph # [place] # Seg Neutrophils % Seg Neuts % (Manual) Lymphocytes % (Manual) Nucleated RBC % Seg Neutrophils # Seg Neutrophils # Man Lymphocytes # (Manual) PT INR POC ABG pO2 Sodium Potassium Chloride Carbon Dioxide BUN Creatinine Glucose POC Glucose 290 H 357 H 384 H Lactic Acid Iron TIBC Total Creatine Kinase CK-MB (CK-2) NT-Pro-B Natriuret Pep Albumin Vitamin B12 Vancomycin Trough 12/13/18 12/14/18 12/14/18 21:56 07:40 08:46 WBC RBC Hgb Hct RDW Plt Count Lymph % (Auto) [place] % (Auto) Lymph # [place] # Seg Neutrophils % Seg Neuts % (Manual) Lymphocytes % (Manual) Nucleated RBC % Seg Neutrophils # Seg Neutrophils # Man Lymphocytes # (Manual) PT INR POC ABG pO2 Sodium 132 L Potassium Chloride 78.1 L Carbon Dioxide 43 H* D BUN Creatinine 0.7 L Glucose 213 H POC Glucose 320 H 223 H Lactic Acid Iron TIBC Total Creatine Kinase CK-MB (CK-2) NT-Pro-B Natriuret Pep Albumin Vitamin B12 Vancomycin Trough 12/14/18 12/14/18 12:04 16:41 WBC RBC Hgb Hct RDW Plt Count Lymph % (Auto) [place] % (Auto) Lymph # [place] # Seg Neutrophils % Seg Neuts % (Manual) Lymphocytes % (Manual) Nucleated RBC % Seg Neutrophils # Seg Neutrophils # Man Lymphocytes # (Manual) PT INR POC ABG pO2 Sodium Potassium Chloride Carbon Dioxide BUN Creatinine Glucose POC Glucose 207 H 333 H Lactic Acid Iron TIBC Total Creatine Kinase CK-MB (CK-2) NT-Pro-B Natriuret Pep Albumin Vitamin B12 Vancomycin Trough Chest x-ray: report reviewed (Reported no acute process.), image reviewed
[2018-12-15] MEDS ORDERED: NACL 0.9% 1000 ML 1,000 ML IV ONE (05:30)
[2018-12-15] MEDS: HALFPRIN EC PO SCH ×2 (06:13→10:00)
[2018-12-15] MEDS: LASIX IV SCH ×2 (06:13→17:11)
[2018-12-15] MEDS: LOPRESSOR PO SCH ×2 (06:13→10:00)
[2018-12-15] MEDS: HumaLOG SUB-Q SCH ×3 (07:57→16:16)
[2018-12-15] MEDS: AMARYL PO SCH (07:57)
[2018-12-15] MEDS: DUONEB *Not for PRN Use IH SCH ×3 (09:08→19:24)
[2018-12-15] MEDS: SODIUM CHLORIDE FLUSH SYRINGE 10 ML IV SCH ×2 (09:28→22:00)
[2018-12-15] MEDS: MIRALAX 3350 PO SCH (10:00)
[2018-12-15] MEDS: VITAMIN C PO SCH (10:00)
[2018-12-15] MEDS: HEMOCYTE PLUS PO SCH (10:00)
[2018-12-15] MEDS: ZAROXOLYN PO SCH (10:00)
[2018-12-15] MEDS: PEPCID PO SCH ×2 (10:00→22:00)
[2018-12-15] MEDS: ALDACTONE PO SCH (10:00)
[2018-12-15] MEDS ORDERED: VERSED ONE (13:24)
[2018-12-15] MEDS ORDERED: HEPARIN/NS 5000 UNIT/500ML(CATH LAB) 1,000 ML IR ONE (13:24)
[2018-12-15] MEDS ORDERED: SUBLIMAZE ONE (13:24)
[2018-12-15] MEDS ORDERED: HEPARIN 10,000 UNITS/10 ML ONE (13:24)
[2018-12-15] MEDS ORDERED: CALAN ONE (13:24)
[2018-12-15] MEDS ORDERED: NITROGLYCERIN SYRINGE 0 ML ONE (13:25)
[2018-12-15] MEDS ORDERED: XYLOCAINE 2% INFILTRATI ONE (13:25)
[2018-12-15] MEDS ORDERED: NACL 0.9% 500 ML 0 ML ONE (13:25)
--- NOTE | 2018-12-15 13:59 | Progress Note ---
Assessment and Plan atient undergone Cardiac catheterization to day by Dr. Florian. Reported Normal right and left heart filling pressures, no significant pulmonary hypertension.No significant obstructive coronary artery disease. Dilated nonischemic cardiomyopathy, severe left ventricle systolic dysfunction, ejection fraction less than 20-25%. Patient sleeping at this on 2 litres O2. O2 saturation 100%. No acute respiratory distress. Patient afebrile but has leukocytosis. - Patient Problems (1) Bilateral pneumonia Current Visit: Yes Status: Acute Qualifiers: Pneumonia type: due to unspecified organism Lung location: unspecified part of lung Qualified Code(s): J18.9 - Pneumonia, unspecified organism Plan to address problem: Patient treated with cefepime and Vancomycin. (2) COPD (chronic obstructive pulmonary disease) Current Visit: Yes Status: Acute Qualifiers: COPD type: unspecified COPD Qualified Code(s): J44.9 - Chronic obstructive pulmonary disease, unspecified Plan to address problem: Oxygen supplementation of 2 L O2 via nasal canula. Albuterol/ Atrovent aerosol treatment q 6 hours. Continue IV Solumedrol. Recommend SCDs Continue Famotidine. (3) Cardiomyopathy Current Visit: Yes Status: Acute Qualifiers: Cardiomyopathy type: unspecified Qualified Code(s): I42.9 - Cardiomyopathy, unspecified Plan to address problem: Management as per Cardiology. (4) CHF (congestive heart failure) Current Visit: No Status: Acute Qualifiers: Heart failure type: systolic Heart failure chronicity: acute on chronic Qualified Code(s): I50.23 - Acute on chronic systolic (congestive) heart failure Plan to address problem: Management as per Cardiology. (5) Diabetes Current Visit: No Status: Acute Plan to address problem: Management as per primary care. (6) Pleural effusion, bilateral Current Visit: No Status: Acute Plan to address problem: Ultrasound of the chest reported small to moderate bilateral pleural effusions. (7) Pulmonary edema Current Visit: No Status: Acute Plan to address problem: Patient is receiving lasix. Management as per primary care and cardiology. (8) Acute respiratory failure with hypoxia Current Visit: No Status: Acute Plan to address problem: Oxygen supplementation of 2 L O2 via nasal canula. Albuterol/ Atrovent aerosol treatment q 6 hours. Continue IV Solumedrol. SCDs Continue Famotidine. Subjective Date of service: 12/15/18 Principal diagnosis: pneumonia Interval history: Patient undergone Cardiac catheterization to day by Dr. Florian. Reported Normal right and left heart filling pressures, no significant pulmonary hypertension.No significant obstructive coronary artery disease. Dilated nonischemic cardiomyopathy, severe left ventricle systolic dysfunction, ejection fraction less than 20-25%. Patient sleeping at this on 2 litres O2. O2 saturation 100%. No acute respiratory distress. Patient afebrile but has leukocytosis. Objective Vital Signs - 12hr 12/15/18 12/15/18 12/15/18 02:01 06:13 07:25 Temperature 97.9 F 97.4 F L Pulse Rate 66 66 68 Pulse Rate [ Anterior Bilateral Throughout] Pulse Rate [ From Monitor] Respiratory 18 18 Rate Respiratory Rate [Anterior Bilateral Throughout] Blood Pressure 124/62 124/62 108/63 O2 Sat by Pulse 100 100 Oximetry 12/15/18 12/15/18 12/15/18 08:00 09:12 10:00 Temperature Pulse Rate 68 Pulse Rate [ 74 Anterior Bilateral Throughout] Pulse Rate [ 70 From Monitor] Respiratory Rate Respiratory 18 Rate [Anterior Bilateral Throughout] Blood Pressure 108/63 O2 Sat by Pulse 99 100 Oximetry Constitutional: no acute distress, alert Eyes: non-icteric ENT: oropharynx moist Neck: supple, no lymphadenopathy, no JVD Effort: normal Ascultation: Bilateral: diminished breath sounds Cardiovascular: regular rate and rhythm Gastrointestinal: normoactive bowel sounds, soft, non-tender Integumentary: normal Extremities: no cyanosis, no edema Neurologic: normal mental status, non-focal exam, pupils equal and round Psychiatric: mood appropriate, affect normal CBC and BMP: 12/13/18 04:23 12/14/18 08:46 ABG, PT/INR, D-dimer: ABG POC ABG pH 7.415 (7.35-7.45) 12/08/18 10:07 POC ABG pCO2 37.1 (35-45) 12/08/18 10:07 POC ABG pO2 70 (80-105) L 12/08/18 10:07 POC ABG HCO3 23.8 (22-26 mml/L) 12/08/18 10:07 POC ABG Total CO2 25 (23-27mmol/L) 12/08/18 10:07 POC ABG O2 Sat 94 12/08/18 10:07 PT/INR, D-dimer PT 14.0 Sec. (12.2-14.9) 12/14/18 08:46 INR 1.11 (0.87-1.13) 12/14/18 08:46 Abnormal lab findings: Abnormal Labs 12/08/18 12/08/18 12/08/18 09:31 09:31 09:31 WBC 16.4 H RBC 3.32 L Hgb 9.7 L Hct 29.1 L RDW 15.6 H Plt Count Lymph % (Auto) 5.[address] [place] % (Auto) Lymph # 0.[address] [place] # 0.9 H Seg Neutrophils % 88.9 H Seg Neuts % (Manual) Lymphocytes % (Manual) Nucleated RBC % Seg Neutrophils # 14.6 H Seg Neutrophils # Man Lymphocytes # (Manual) PT INR POC ABG pO2 Sodium 132 L Potassium Chloride 96.1 L Carbon Dioxide BUN Creatinine 0.7 L Glucose 186 H POC Glucose Lactic Acid 2.50 H* Iron TIBC Total Creatine Kinase CK-MB (CK-2) NT-Pro-B Natriuret Pep Albumin Vitamin B12 Vancomycin Trough 12/08/18 12/08/18 12/08/18 09:31 09:31 09:31 WBC RBC Hgb Hct RDW Plt Count Lymph % (Auto) [place] % (Auto) Lymph # [place] # Seg Neutrophils % Seg Neuts % (Manual) Lymphocytes % (Manual) Nucleated RBC % Seg Neutrophils # Seg Neutrophils # Man Lymphocytes # (Manual) PT 18.7 H INR 1.60 H POC ABG pO2 Sodium Potassium Chloride Carbon Dioxide BUN Creatinine Glucose POC Glucose Lactic Acid Iron TIBC Total Creatine Kinase 185 H CK-MB (CK-2) 4.1 H NT-Pro-B Natriuret Pep 4456 H Albumin 3.7 L Vitamin B12 Vancomycin Trough 12/08/18 12/08/18 12/08/18 10:07 10:45 20:35 WBC RBC Hgb Hct RDW Plt Count Lymph % (Auto) [place] % (Auto) Lymph # [place] # Seg Neutrophils % Seg Neuts % (Manual) Lymphocytes % (Manual) Nucleated RBC % Seg Neutrophils # Seg Neutrophils # Man Lymphocytes # (Manual) PT INR POC ABG pO2 70 L Sodium Potassium Chloride Carbon Dioxide BUN Creatinine Glucose POC Glucose Lactic Acid 2.30 H* Iron 21 L TIBC 242 L Total Creatine Kinase CK-MB (CK-2) NT-Pro-B Natriuret Pep Albumin Vitamin B12 Vancomycin Trough 12/08/18 12/09/18 12/09/18 20:35 06:54 06:54 WBC 12.2 H RBC 3.28 L Hgb 9.4 L Hct 28.9 L RDW 16.3 H Plt Count Lymph % (Auto) 12.[address] [place] % (Auto) 8.4 H Lymph # [place] # 1.0 H Seg Neutrophils % 77.7 H Seg Neuts % (Manual) Lymphocytes % (Manual) Nucleated RBC % Seg Neutrophils # 9.5 H Seg Neutrophils # Man Lymphocytes # (Manual) PT INR POC ABG pO2 Sodium 132 L Potassium Chloride 93.8 L Carbon Dioxide BUN 6 L Creatinine 0.5 L Glucose 107 H POC Glucose Lactic Acid Iron TIBC Total Creatine Kinase CK-MB (CK-2) NT-Pro-B Natriuret Pep Albumin 3.6 L Vitamin B12 1587 H Vancomycin Trough 12/09/18 12/09/18 12/09/18 08:16 11:38 16:39 WBC RBC Hgb Hct RDW Plt Count Lymph % (Auto) [place] % (Auto) Lymph # [place] # Seg Neutrophils % Seg Neuts % (Manual) Lymphocytes % (Manual) Nucleated RBC % Seg Neutrophils # Seg Neutrophils # Man Lymphocytes # (Manual) PT INR POC ABG pO2 Sodium Potassium Chloride Carbon Dioxide BUN Creatinine Glucose POC Glucose 108 H 143 H 187 H Lactic Acid Iron TIBC Total Creatine Kinase CK-MB (CK-2) NT-Pro-B Natriuret Pep Albumin Vitamin B12 Vancomycin Trough 12/09/18 12/10/18 12/10/18 22:26 07:48 11:28 WBC RBC Hgb Hct RDW Plt Count Lymph % (Auto) [place] % (Auto) Lymph # [place] # Seg Neutrophils % Seg Neuts % (Manual) Lymphocytes % (Manual) Nucleated RBC % Seg Neutrophils # Seg Neutrophils # Man Lymphocytes # (Manual) PT INR POC ABG pO2 Sodium Potassium Chloride Carbon Dioxide BUN Creatinine Glucose POC Glucose 244 H 197 H 267 H Lactic Acid Iron TIBC Total Creatine Kinase CK-MB (CK-2) NT-Pro-B Natriuret Pep Albumin Vitamin B12 Vancomycin Trough 12/10/18 12/10/18 12/11/18 16:28 22:01 04:47 WBC 17.3 H RBC 3.41 L Hgb 9.8 L Hct 29.5 L RDW 16.0 H Plt Count 451 H Lymph % (Auto) [place] % (Auto) Lymph # [place] # Seg Neutrophils % Seg Neuts % (Manual) 93.0 H Lymphocytes % (Manual) 4.0 L Nucleated RBC % 1.0 H Seg Neutrophils # Seg Neutrophils # Man 16.1 H Lymphocytes # (Manual) 0.7 L PT INR POC ABG pO2 Sodium Potassium Chloride Carbon Dioxide BUN Creatinine Glucose POC Glucose 227 H 249 H Lactic Acid Iron TIBC Total Creatine Kinase CK-MB (CK-2) NT-Pro-B Natriuret Pep Albumin Vitamin B12 Vancomycin Trough 12/11/18 12/11/18 12/11/18 04:47 07:24 11:34 WBC RBC Hgb Hct RDW Plt Count Lymph % (Auto) [place] % (Auto) Lymph # [place] # Seg Neutrophils % Seg Neuts % (Manual) Lymphocytes % (Manual) Nucleated RBC % Seg Neutrophils # Seg Neutrophils # Man Lymphocytes # (Manual) PT INR POC ABG pO2 Sodium 133 L Potassium Chloride 89.6 L Carbon Dioxide 31 H BUN Creatinine 0.6 L Glucose 218 H POC Glucose 206 H 206 H Lactic Acid Iron TIBC Total Creatine Kinase CK-MB (CK-2) NT-Pro-B Natriuret Pep Albumin Vitamin B12 Vancomycin Trough 12/11/18 12/11/18 12/11/18 16:29 20:41 21:05 WBC RBC Hgb Hct RDW Plt Count Lymph % (Auto) [place] % (Auto) Lymph # [place] # Seg Neutrophils % Seg Neuts % (Manual) Lymphocytes % (Manual) Nucleated RBC % Seg Neutrophils # Seg Neutrophils # Man Lymphocytes # (Manual) PT INR POC ABG pO2 Sodium Potassium Chloride Carbon Dioxide BUN Creatinine Glucose POC Glucose 344 H 440 H Lactic Acid Iron TIBC Total Creatine Kinase CK-MB (CK-2) NT-Pro-B Natriuret Pep Albumin Vitamin B12 Vancomycin Trough 21.1 H 12/12/18 12/12/18 12/12/18 07:33 12:22 16:47 WBC RBC Hgb Hct RDW Plt Count Lymph % (Auto) [place] % (Auto) Lymph # [place] # Seg Neutrophils % Seg Neuts % (Manual) Lymphocytes % (Manual) Nucleated RBC % Seg Neutrophils # Seg Neutrophils # Man Lymphocytes # (Manual) PT INR POC ABG pO2 Sodium Potassium Chloride Carbon Dioxide BUN Creatinine Glucose POC Glucose 200 H 324 H 290 H Lactic Acid Iron TIBC Total Creatine Kinase CK-MB (CK-2) NT-Pro-B Natriuret Pep Albumin Vitamin B12 Vancomycin Trough 12/12/18 12/13/18 12/13/18 21:41 04:23 04:23 WBC 16.5 H RBC Hgb 11.6 L Hct 35.3 L RDW 16.4 H Plt Count 497 H Lymph % (Auto) 5.[address] [place] % (Auto) Lymph # 0.[address] [place] # 0.9 H Seg Neutrophils % 88.8 H Seg Neuts % (Manual) Lymphocytes % (Manual) Nucleated RBC % Seg Neutrophils # 14.7 H Seg Neutrophils # Man Lymphocytes # (Manual) PT INR POC ABG pO2 Sodium 128 L Potassium 5.3 H D Chloride 79.5 L Carbon Dioxide 35 H BUN Creatinine 0.6 L Glucose 268 H POC Glucose 327 H Lactic Acid Iron TIBC Total Creatine Kinase CK-MB (CK-2) NT-Pro-B Natriuret Pep Albumin Vitamin B12 Vancomycin Trough 12/13/18 12/13/18 12/13/18 08:43 11:26 15:43 WBC RBC Hgb Hct RDW Plt Count Lymph % (Auto) [place] % (Auto) Lymph # [place] # Seg Neutrophils % Seg Neuts % (Manual) Lymphocytes % (Manual) Nucleated RBC % Seg Neutrophils # Seg Neutrophils # Man Lymphocytes # (Manual) PT INR POC ABG pO2 Sodium Potassium Chloride Carbon Dioxide BUN Creatinine Glucose POC Glucose 290 H 357 H 384 H Lactic Acid Iron TIBC Total Creatine Kinase CK-MB (CK-2) NT-Pro-B Natriuret Pep Albumin Vitamin B12 Vancomycin Trough 12/13/18 12/14/18 12/14/18 21:56 07:40 08:46 WBC RBC Hgb Hct RDW Plt Count Lymph % (Auto) [place] % (Auto) Lymph # [place] # Seg Neutrophils % Seg Neuts % (Manual) Lymphocytes % (Manual) Nucleated RBC % Seg Neutrophils # Seg Neutrophils # Man Lymphocytes # (Manual) PT INR POC ABG pO2 Sodium 132 L Potassium Chloride 78.1 L Carbon Dioxide 43 H* D BUN Creatinine 0.7 L Glucose 213 H POC Glucose 320 H 223 H Lactic Acid Iron TIBC Total Creatine Kinase CK-MB (CK-2) NT-Pro-B Natriuret Pep Albumin Vitamin B12 Vancomycin Trough 12/14/18 12/14/18 12/14/18 12:04 16:41 21:26 WBC RBC Hgb Hct RDW Plt Count Lymph % (Auto) [place] % (Auto) Lymph # [place] # Seg Neutrophils % Seg Neuts % (Manual) Lymphocytes % (Manual) Nucleated RBC % Seg Neutrophils # Seg Neutrophils # Man Lymphocytes # (Manual) PT INR POC ABG pO2 Sodium Potassium Chloride Carbon Dioxide BUN Creatinine Glucose POC Glucose 207 H 333 H 322 H Lactic Acid Iron TIBC Total Creatine Kinase CK-MB (CK-2) NT-Pro-B Natriuret Pep Albumin Vitamin B12 Vancomycin Trough 12/15/18 12/15/18 12/15/18 06:10 07:29 10:43 WBC RBC Hgb Hct RDW Plt Count Lymph % (Auto) [place] % (Auto) Lymph # [place] # Seg Neutrophils % Seg Neuts % (Manual) Lymphocytes % (Manual) Nucleated RBC % Seg Neutrophils # Seg Neutrophils # Man Lymphocytes # (Manual) PT INR POC ABG pO2 Sodium Potassium Chloride Carbon Dioxide BUN Creatinine Glucose POC Glucose 133 H 141 H 138 H Lactic Acid Iron TIBC Total Creatine Kinase CK-MB (CK-2) NT-Pro-B Natriuret Pep Albumin Vitamin B12 Vancomycin Trough
[2018-12-15] MEDS ORDERED: NACL 0.9% 1000 ML 1,000 ML IV SCH (15:00)
--- NOTE | 2018-12-15 15:27 | Progress Note ---
Assessment and Plan Assessment and plan: This is an 78-year old male with multiple medical problems. 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 Patient is on home O2. He also has paroxysmal atrial flutter, a history of bilateral PE, on Eliquis for oral anticoagulation. Patient presents with shortness of breath, coughs, leukocytosis, admitted with COPD exacerbation, Pneumonia and decompensated heart failure. Patient denies chest pain and palpitations. There is no lower extremity edema. ECG is sinus rhythm, no acute ischemic changes. A cardiology consulted Acute hypoxic respiratory failure, COPD exacerbation sp steroids, now dc, duo nebs, nebulizer treatments, oxygen support, continue antibiotics Bilateral pleural effusion - Chest ultrasound was done - Pulmonary consulted DM2 with persistent hyperglycemia -a1c is 5.4, so high glc is due to steroids dc steroids, was bolused with insulin. cont ssi Sepsis secondary to Bilateral pneumonia completed abx on 12/12 History of PE - Continue eliquis Paroxysmal atrial flutter - Controlled, continue eliquis, Cardiomyopathy, chronic systolic CHF with acute exacerbation - Patient is on IV Lasix, Right and left cath on friday - Cardiology consulted and recommend to continue diurese the patient and right and left heart cath on Friday DVT prophylaxis Disposition; continue inpatient care. Right and left cath on friday History Interval history: Patient was seen and evaluated this morning, patient's SOB is getting better. Hospitalist Physical - Physical exam Narrative exam: Patient is in moderate respiratory distress. The patient appeared well nourished and normally developed. Vital signs as documented. Head exam is unremarkable. No scleral icterus . Neck is without jugular venous distension, thyromegaly, or carotid bruits. Lung decrease air entry bilaterally. Cardiac exam reveals irregular rate and Rhythm. Abdominal exam reveals normal bowel sounds, no masses, no organomegaly and no aortic enlargement. Extremities are nonedematous and both femoral and pedal pulses are normal. 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 No focal weakness. Hospitalist Physical - Constitutional Vitals: Temp Pulse Resp BP Pulse Ox 97.5 F L 71 20 122/64 96 12/15/18 15:17 12/15/18 15:17 12/15/18 15:17 12/15/18 15:17 12/15/18 15:17 General appearance: Present: no acute distress Results - Labs CBC & Chem 7: 12/13/18 04:23 12/14/18 08:46 Labs: Laboratory Last Values WBC 16.5 K/mm3 (4.5-11.0) H 12/13/18 04:23 RBC 4.07 M/mm3 (3.65-5.03) 12/13/18 04:23 Hgb 11.6 gm/dl (11.8-15.2) L 12/13/18 04:23 Hct 35.3 % (35.5-45.6) L 12/13/18 04:23 MCV 87 fl (84-94) 12/13/18 04:23 MCH 29 pg (28-32) 12/13/18 04:23 MCHC 33 % (32-34) 12/13/18 04:23 RDW 16.4 % (13.2-15.2) H 12/13/18 04:23 Plt Count 497 K/mm3 (140-440) H 12/13/18 04:23 Lymph % (Auto) 5.5 % (13.4-35.0) L 12/13/18 04:23 Simpson % (Auto) 5.4 % (0.0-7.3) 12/13/18 04:23 Eos % (Auto) 0.1 % (0.0-4.3) 12/13/18 04:23 Baso % (Auto) 0.2 % (0.0-1.8) 12/13/18 04:23 Lymph # 0.9 K/mm3 (1.2-5.4) L 12/13/18 04:23 Simpson # 0.9 K/mm3 (0.0-0.8) H 12/13/18 04:23 Eos # 0.0 K/mm3 (0.0-0.4) 12/13/18 04:23 Baso # 0.0 K/mm3 (0.0-0.1) 12/13/18 04:23 Add Manual Diff Complete 12/11/18 04:47 Total Counted 100 12/11/18 04:47 Seg Neutrophils % 88.8 % (40.0-70.0) H 12/13/18 04:23 Seg Neuts % (Manual) 93.0 % (40.0-70.0) H 12/11/18 04:47 0 % 12/11/18 04:47 4.0 % (13.4-35.0) L 12/11/18 04:47 Reactive Lymphs % (Man) 0 % 12/11/18 04:47 3.0 % (0.0-7.3) 12/11/18 04:47 0 % (0.0-4.3) 12/11/18 04:47 0 % (0.0-1.8) 12/11/18 04:47 0 % 12/11/18 04:47 0 % 12/11/18 04:47 0 % 12/11/18 04:47 0 % 12/11/18 04:47 Nucleated RBC % 1.0 % (0.0-0.9) H 12/11/18 04:47 Seg Neutrophils # 14.7 K/mm3 (1.8-7.7) H 12/13/18 04:23 Seg Neutrophils # Man 16.1 K/mm3 (1.8-7.7) H 12/11/18 04:47 Band Neutrophils # 0.0 K/mm3 12/11/18 04:47 0.7 K/mm3 (1.2-5.4) L 12/11/18 04:47 Abs React Lymphs (Man) 0.0 K/mm3 12/11/18 04:47 0.5 K/mm3 (0.0-0.8) 12/11/18 04:47 0.0 K/mm3 (0.0-0.4) 12/11/18 04:47 0.0 K/mm3 (0.0-0.1) 12/11/18 04:47 0.0 K/mm3 12/11/18 04:47 0.0 K/mm3 12/11/18 04:47 0.0 K/mm3 12/11/18 04:47 Blast Cells # 0.0 K/mm3 12/11/18 04:47 WBC Morphology Not Reportable 12/11/18 04:47 Hypersegmented Neuts Not Reportable 12/11/18 04:47 Hyposegmented Neuts Not Reportable 12/11/18 04:47 Hypogranular Neuts Not Reportable 12/11/18 04:47 Not Reportable 12/11/18 04:47 2+ 12/11/18 04:47 Not Reportable 12/11/18 04:47 Not Reportable 12/11/18 04:47 Not Reportable 12/11/18 04:47 Not Reportable 12/11/18 04:47 Consistent w auto 12/11/18 04:47 Not Reportable 12/11/18 04:47 Plt Clumps, EDTA Not Reportable 12/11/18 04:47 Not Reportable 12/11/18 04:47 Not Reportable 12/11/18 04:47 Not Reportable 12/11/18 04:47 Plt Morphology Comment Not Reportable 12/11/18 04:47 RBC Morphology Not Reportable 12/11/18 04:47 Dimorphic RBCs Not Reportable 12/11/18 04:47 Not Reportable 12/11/18 04:47 Not Reportable 12/11/18 04:47 Not Reportable 12/11/18 04:47 1+ 12/11/18 04:47 Not Reportable 12/11/18 04:47 Not Reportable 12/11/18 04:47 Not Reportable 12/11/18 04:47 Not Reportable 12/11/18 04:47 Not Reportable 12/11/18 04:47 Not Reportable 12/11/18 04:47 Not Reportable 12/11/18 04:47 Not Reportable 12/11/18 04:47 Not Reportable 12/11/18 04:47 Not Reportable 12/11/18 04:47 Not Reportable 12/11/18 04:47 Not Reportable 12/11/18 04:47 Not Reportable 12/11/18 04:47 Not Reportable 12/11/18 04:47 Not Reportable 12/11/18 04:47 Acanthocytes (Spur) Not Reportable 12/11/18 04:47 Rouleaux Not Reportable 12/11/18 04:47 Not Reportable 12/11/18 04:47 Not Reportable 12/11/18 04:47 Not Reportable 12/11/18 04:47 Not Reportable 12/11/18 04:47 Hem Pathologist Commnt No 12/11/18 04:47 PT 14.0 Sec. (12.2-14.9) 12/14/18 08:46 INR 1.11 (0.87-1.13) 12/14/18 08:46 APTT 34.5 Sec. (24.2-36.6) 12/08/18 09:31 POC ABG pH 7.415 (7.35-7.45) 12/08/18 10:07 POC ABG pCO2 37.1 (35-45) 12/08/18 10:07 POC ABG pO2 70 (80-105) L 12/08/18 10:07 POC ABG HCO3 23.8 (22-26 mml/L) 12/08/18 10:07 POC ABG Total CO2 25 (23-27mmol/L) 12/08/18 10:07 POC ABG O2 Sat 94 12/08/18 10:07 POC ABG Base Excess -1 ((-2) - (+3)mmol/L) 12/08/18 10:07 32 % 12/08/18 10:07 Sodium 132 mmol/L (137-145) L 12/14/18 08:46 Potassium 3.6 mmol/L (3.6-5.0) D 12/14/18 08:46 Chloride 78.1 mmol/L (98-107) L 12/14/18 08:46 Carbon Dioxide 43 mmol/L (22-30) H* D 12/14/18 08:46 15 mmol/L 12/14/18 08:46 BUN 19 mg/dL (9-20) 12/14/18 08:46 0.7 mg/dL (0.8-1.5) L 12/14/18 08:46 Estimated GFR > 60 ml/min 12/14/18 08:46 27 % 12/14/18 08:46 Glucose 213 mg/dL (75-100) H 12/14/18 08:46 POC Glucose 138 (70-105) H 12/15/18 10:43 5.2 % (4-6) 12/08/18 20:35 Lactic Acid 1.30 mmol/L (0.7-2.0) 12/08/18 11:56 Calcium 9.3 mg/dL (8.4-10.2) 12/14/18 08:46 Magnesium 1.80 mg/dL (1.7-2.3) 12/08/18 09:31 Iron 21 ug/dL (49-181) L 12/08/18 20:35 TIBC 242 mcg/dL (250-450) L 12/08/18 20:35 % Saturation 8.68 % 12/08/18 20:35 199 mg/dl (180-329) 12/08/18 20:35 0.40 mg/dL (0.1-1.2) 12/09/18 06:54 < 0.2 mg/dL (0-0.2) 12/08/18 09:31 0.2 mg/dL 12/08/18 09:31 AST 15 units/L (5-40) 12/09/18 06:54 ALT 14 units/L (7-56) 12/09/18 06:54 51 units/L (35-129) 12/09/18 06:54 185 units/L (55-170) H 12/08/18 09:31 CK-MB (CK-2) 4.1 ng/mL (0.0-4.0) H 12/08/18 09:31 CK-MB (CK-2) Rel Index 2.2 (0-4) 12/08/18 09:31 < 0.010 ng/mL (0.00-0.029) 12/08/18 09:31 NT-Pro-B Natriuret Pep 4456 pg/mL (0-900) H 12/08/18 09:31 6.7 g/dL (6.3-8.2) 12/09/18 06:54 3.6 g/dL (3.9-5) L 12/09/18 06:54 1.2 % 12/09/18 06:54 Vitamin B12 1587 pg/mL (211-911) H 12/08/18 20:35 Dark yellow (Yellow) 12/08/18 17:22 Cloudy (Clear) 12/08/18 17:22 5.0 (5.0-7.0) 12/08/18 17:22 Ur Specific [place] 1.013 (1.003-1.030) 12/08/18 17:22 <15 mg/dl mg/dL (Negative) 12/08/18 17:22 Neg mg/dL (Negative) 12/08/18 17:22 Neg mg/dL (Negative) 12/08/18 17:22 Neg (Negative) 12/08/18 17:22 Neg (Negative) 12/08/18 17:22 Neg (Negative) 12/08/18 17:22 < 2.0 mg/dL (<2.0) 12/08/18 17:22 Ur Leukocyte Esterase Neg (Negative) 12/08/18 17:22 1.0 /HPF (0.0-6.0) 12/08/18 17:22 4.0 /HPF (0.0-6.0) 12/08/18 17:22 U Epithel Cells (Auto) < 1.0 /HPF (0-13.0) 12/08/18 17:22 Few /HPF 12/08/18 17:22 Vancomycin Trough 21.1 ug/mL (5.0-20.0) H 12/11/18 20:41 Active Medications - Current Medications Current Medications: Generic Name Dose Route Start Last Admin Trade Name Freq PRN Reason Stop Dose Admin Acetaminophen 650 mg 12/08/18 20:16 12/11/18 23:24 Tylenol PO 650 mg Q4H PRN Administration Pain MILD(1-3)/Fever >100.5/DUCKWOR[place] Albuterol 2.5 mg 12/08/18 20:19 12/08/18 22:13 Proventil IH 2.5 mg Q4HRT PRN Administration Shortness Of Breath Albuterol/Ipratropium 1 ampul 12/12/18 09:00 12/15/18 14:42 Duoneb *Not For Prn Use* IH Not Given TIDRT DEIDRA Ascorbic Acid 500 mg 12/08/18 20:00 12/15/18 10:00 Vitamin C PO Not Given QDAY DEIDRA Aspirin 81 mg 12/09/18 10:00 12/15/18 10:00 Halfprin Ec PO Not Given QDAY DEIDRA Famotidine 20 mg 12/08/18 22:00 12/15/18 10:00 Pepcid PO Not Given BID DEIDRA Furosemide 40 mg 12/09/18 18:00 12/15/18 06:13 Lasix IV Not Given 0600,1800 DEIDRA Glimepiride 4 mg 12/08/18 20:00 12/15/18 07:57 Amaryl PO Not Given QAMDIAB [facility] Hydromorphone HCl 0.5 mg 12/08/18 20:16 Dilaudid IV Q3H PRN Pain , Severe (7-10) Sodium Chloride 1,000 mls @ 50 mls/hr 12/15/18 05:30 12/15/18 06:14 Nacl 0.9% 1000 Ml IV 12/16/18 01:29 50 mls/hr ONCE ONE Administration Sodium Chloride 1,000 mls @ 75 mls/hr 12/15/18 15:00 Nacl 0.9% 1000 Ml IV 12/15/18 20:59 DIRECT [facility] Ibuprofen 600 mg 12/08/18 20:16 12/12/18 08:13 Ibuprofen PO 600 mg Q6H PRN Administration Pain, Mild (1-3) Insulin Human Lispro 0 unit 12/08/18 22:00 12/15/18 11:30 Humalog SUB-Q Not Given ACHS [facility] Protocol Magnesium Hydroxide 30 ml 12/10/18 11:03 12/10/18 11:54 Milk Of Magnesia PO 30 ml QDAY PRN Administration Constipation Methylprednisolone Sodium Succinate 40 mg 12/15/18 16:00 Solu-Medrol IV Q12HR [facility] Metolazone 5 mg 12/10/18 13:00 12/15/18 10:00 Zaroxolyn PO Not Given QDAY [facility] Metoprolol Tartrate 50 mg 12/08/18 22:00 12/15/18 10:00 Lopressor PO Not Given BID [facility] Multivitamins/Iron 1 each 12/09/18 11:00 12/15/18 10:00 Hemocyte Plus PO Not Given QDAY [facility] Ondansetron HCl 4 mg 12/08/18 20:16 Zofran IV Q8H PRN Nausea And Vomiting Polyethylene Glycol 17 gm 12/12/18 10:00 12/15/18 10:00 Miralax 3350 PO Not Given QDAY [facility] Sodium Chloride 10 ml 12/08/18 22:00 12/15/18 09:28 Sodium Chloride Flush Syringe 10 Ml IV 10 ml BID DEIDRA Administration Sodium Chloride 10 ml 12/08/18 20:16 12/09/18 22:40 Sodium Chloride Flush Syringe 10 Ml IV 10 ml PRN PRN Administration LINE FLUSH Spironolactone 25 mg 12/10/18 13:00 12/15/18 10:00 Aldactone PO Not Given QDAY DEIDRA Nutrition/Malnutrition Assess - Dietary Evaluation Nutrition/Malnutrition Findings: Nutrition Notes Start: 12/15/18 10:10 Freq: Status: Active Protocol: Document 12/15/18 10:10 BHARGAV (Rec: 12/15/18 10:12 BHARGAV [email or web address]) Nutrition Notes Need for Assessment generated from: LOS Initial or Follow up Brief Note Current Diet Cardiac/Consistent CHO Height 6 ft 1 in Weight 91.6 kg [place] Body Weight (kg) 83.63 BMI 26.6 Subjective/Other Information Pt screened for LOS. He has consumed 93% of meals since admission, which meets >75% of estimated energy and pro needs. Percent of energy/protein needs met: 84% energy 85% pro Is patient on ventilator? No Is Patient Ambulatory and/or Out of Bed Yes REE-([place]-St. Jeor-ambulatory/OOB) [ 2183.844 [id number]] Calculation Used for Recommendations [place] Jeor Additional Notes Pro needs 1-1.2g/k-110g/ day Fluid needs 1ml/kcal Nutrition Intervention Revisit per MD consult or patient Sign Off request:
--- NOTE | 2018-12-15 16:08 | Cardiac Catherization Report ---
REASON FOR PROCEDURE: The patient is an 78-year-old man who presented with shortness of breath and acute congestive heart failure. After optimal treatment, he was recommended for right and left heart catheterization. PROCEDURES: 1. Right heart catheterization. 2. Left heart catheterization. 3. Selective left and right coronary angiography. 4. Left ventricle angiography. 5. Sedation time start 1406, end 1428. The patient was prepped and draped in a sterile fashion after informed consent. Right femoral artery was entered using Seldinger technique followed by placement of a 6-Grenadian sheath. Simultaneously, an 8-Grenadian sheath was placed in the right femoral vein. A Cadott-Lisandro catheter was then advanced to the pulmonary artery position. A pigtail catheter was advanced into the left ventricle. Cardiac output was measured using the thermodilution method. Simultaneous right and left heart filling pressures were then measured, following which the Cadott-Lisandro was withdrawn and right heart pressures were recorded. Left ventricular angiography was then performed with the pigtail catheter, following which the pigtail was withdrawn across the aortic valve, and transaortic pressures recorded. Finally, some selective left and right coronary angiography was performed using a #4 left Shemar and a #4 right Shemar. The catheters were then withdrawn, sheaths removed, and hemostasis at the arterial site using an Angio-Seal device and manual compression at the venous site. The patient was returned to the postprocedure unit in stable condition. There were no complications. FINDINGS: HEMODYNAMICS: The mean right atrial pressure was 6. Right ventricular pressure was 30/8. Pulmonary artery pressure 30/15. Mean pulmonary artery wedge pressure was 10. Left ventricular end-diastolic pressure was 10. Ascending aortic pressure 125/53. There was no significant pressure gradient on pullback across the aortic valve. Cardiac output was 4.5 liters per minute. CORONARY ANGIOGRAPHY: Left main coronary artery was free of significant disease. The left anterior descending artery contained diffuse mild atherosclerosis of its mid segment, no significant obstructive lesions were demonstrated. A small caliber ramus intermedius artery was free of significant disease. The circumflex artery contained mild luminal irregularities in its distal obtuse marginal branches. Right coronary artery was a small caliber, but dominant vessel, and contained mild luminal irregularities. Left ventricle was mildly to moderately dilated. There was severe left ventricular systolic dysfunction, diffuse hypokinesis, left ventricular ejection fraction less than 20-25%. CONCLUSION: 1. Normal right and left heart filling pressures, high normal pulmonary artery pressures. 2. Mild luminal irregularities, no significant obstructive coronary disease. 3. Dilated, nonischemic cardiomyopathy, severe left ventricular systolic dysfunction, ejection fraction less than 20-25%. RECOMMENDATION: Medical therapy for nonischemic cardiomyopathy. [facility]# [id number] [place]/NTS
[2018-12-15] MEDS: SOLU-Medrol IV SCH ×2 (16:45→23:57)
[2018-12-15] MEDS: SODIUM CHLORIDE FLUSH SYRINGE 10 ML IV PRN (17:09)
--- NOTE | 2018-12-15 17:31 | Event Note ---
Date: 12/15/18 Right and left heart catheterization completed, no complications. Findings: Normal right and left heart filling pressures, no significant pulmonary hypertension. No significant obstructive coronary artery disease. Dilated nonischemic cardiomyopathy, severe left ventricle systolic dysfunction, ejection fraction less than 20-25%. Recommend medical therapy for nonischemic cardiomyopathy. Filling pressures are normal, heart failure is resolved. Patient is stable for cardiac discharge on medical therapy including afterload agents, beta blockers, diuretics, oral antiplatelets and spironolactone.
[2018-12-15] MEDS: ZESTRIL PO SCH (18:50)
[2018-12-15] MEDS: LASIX PO SCH (18:52)
[2018-12-15] MEDS: IBUPROFEN PO PRN (23:57)
[2018-12-16] MEDS: COREG PO SCH ×3 (03:05→21:53)
[2018-12-16] MEDS: DUONEB *Not for PRN Use IH SCH ×2 (07:56→21:49)
[2018-12-16] MEDS: HumaLOG SUB-Q SCH ×4 (08:19→21:55)
[2018-12-16] MEDS: AMARYL PO SCH (08:20)
--- NOTE | 2018-12-16 08:48 | Progress Note ---
Assessment and Plan COPD exacerbation on home oxygen Pneumonia Chronic systolic heart failure Leukocytosis may likely be related to the ongoing high-dose therapy with intravenous methyl prednisolone. Bilateral pulmonary emboli on eliquis for oral anticoagulation therapy Paroxysmal atrial flutter amiodarone toxicity has been suggested, we will discontinue amiodarone. on metoprolol for suppression Cardiomyopathy MPI 04/2018 - small fixed inferior wall defect Hypertension Diabetes Valvular heart lesions Echocardiogram 10/09/18 shows left ventricular ejection fraction 45%, mild mitral stenosis, 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 Right and left heart catheterization this admission: Normal right and left heart filling pressures, no significant pulmonary hypertension. No significant obstructive coronary artery disease. Dilated nonischemic cardiomyopathy, severe left ventricle systolic dysfunction, ejection fraction less than 20-25%. Recommendations: Fluid/salt restriction. Continue medical therapy for nonischemic cardiomyopathy and paroxysmal afib. Stable for cardiac discharge home today. Pt will f/u with Dr Alvarez, primary attending pathologist, December 20 at 250p. Subjective Date of service: 12/16/18 Principal diagnosis: pneumonia Interval history: Patient is resting in bed comfortably. He has no complaints. Objective Vital Signs Temp Pulse Pulse Pulse Resp Resp BP 12/16/18 07:57 12/16/18 07:56 66 16 12/16/18 07:29 98.0 F 68 20 121/62 12/16/18 03:05 73 128/59 12/16/18 02:30 98.6 F 20 118/52 12/15/18 19:24 74 18 12/15/18 18:57 97.7 F 73 18 128/59 12/15/18 18:50 78 125/99 12/15/18 18:45 77 125/99 12/15/18 18:37 74 123/61 12/15/18 15:17 97.5 F L 71 20 122/64 12/15/18 10:00 68 70 108/63 12/15/18 09:12 Pulse Ox 12/16/18 07:57 100 12/16/18 07:56 12/16/18 07:29 100 12/16/18 03:05 12/16/18 02:30 12/15/18 19:24 100 12/15/18 18:57 100 12/15/18 18:50 12/15/18 18:45 98 12/15/18 18:37 100 12/15/18 15:17 96 12/15/18 10:00 100 12/15/18 09:12 99 - Physical Examination General: No Apparent Distress HEENT: Positive: PERRL Neck: Positive: trachea midline Cardiac: Positive: Reg Rate and Rhythm Lungs: Positive: Decreased Breath Sounds Neuro: Positive: Grossly Intact Abdomen: Positive: Soft Extremities: Absent: edema
[2018-12-16] MEDS: ALDACTONE PO SCH (09:16)
[2018-12-16] MEDS: PEPCID PO SCH ×2 (09:16→21:54)
[2018-12-16] MEDS: LASIX PO SCH (09:16)
[2018-12-16] MEDS: HALFPRIN EC PO SCH (09:16)
[2018-12-16] MEDS: ZESTRIL PO SCH (09:17)
[2018-12-16] MEDS: HEMOCYTE PLUS PO SCH (09:17)
[2018-12-16] MEDS: VITAMIN C PO SCH (09:17)
[2018-12-16] MEDS: MIRALAX 3350 PO SCH (09:18)
[2018-12-16] MEDS: SODIUM CHLORIDE FLUSH SYRINGE 10 ML IV SCH ×2 (09:18→21:56)
[2018-12-16] MEDS: SOLU-Medrol IV SCH ×2 (09:18→21:54)
--- NOTE | 2018-12-16 12:55 | Progress Note ---
Assessment and Plan atient undergone Cardiac catheterization by Dr. Florian. Reported Normal right and left heart filling pressures, no significant pulmonary hypertension.No significant obstructive coronary artery disease. Dilated nonischemic cardiomyopathy, severe left ventricle systolic dysfunction, ejection fraction less than 20-25%. Patient sitting up in chair and on 2 litres O2. O2 saturation 100%. No acute respiratory distress. Patient afebrile but has leukocytosis. - Patient Problems (1) Bilateral pneumonia Current Visit: Yes Status: Acute Qualifiers: Pneumonia type: due to unspecified organism Lung location: unspecified part of lung Qualified Code(s): J18.9 - Pneumonia, unspecified organism Plan to address problem: Patient treated with cefepime and Vancomycin. (2) COPD (chronic obstructive pulmonary disease) Current Visit: Yes Status: Acute Qualifiers: COPD type: unspecified COPD Qualified Code(s): J44.9 - Chronic obstructive pulmonary disease, unspecified Plan to address problem: Oxygen supplementation of 2 L O2 via nasal canula. Albuterol/ Atrovent aerosol treatment q 6 hours. Continue IV Solumedrol. Recommend SCDs Continue Famotidine. (3) Cardiomyopathy Current Visit: Yes Status: Acute Qualifiers: Cardiomyopathy type: unspecified Qualified Code(s): I42.9 - Cardiomyopathy, unspecified Plan to address problem: Management as per Cardiology. (4) CHF (congestive heart failure) Current Visit: No Status: Acute Qualifiers: Heart failure type: systolic Heart failure chronicity: acute on chronic Qualified Code(s): I50.23 - Acute on chronic systolic (congestive) heart failure Plan to address problem: Management as per Cardiology. (5) Diabetes Current Visit: No Status: Acute Plan to address problem: Management as per primary care. (6) Pleural effusion, bilateral Current Visit: No Status: Acute Plan to address problem: Ultrasound of the chest reported small to moderate bilateral pleural effusions. (7) Pulmonary edema Current Visit: No Status: Acute Plan to address problem: Patient is receiving lasix. Management as per primary care and cardiology. (8) Acute respiratory failure with hypoxia Current Visit: No Status: Acute Plan to address problem: Oxygen supplementation of 2 L O2 via nasal canula. Albuterol/ Atrovent aerosol treatment q 6 hours. Continue IV Solumedrol. SCDs Continue Famotidine. Subjective Date of service: 12/16/18 Principal diagnosis: pneumonia Interval history: Patient undergone Cardiac catheterization by Dr. Florian. Reported Normal right and left heart filling pressures, no significant pulmonary hypertension.No significant obstructive coronary artery disease. Dilated nonischemic cardiomyopathy, severe left ventricle systolic dysfunction, ejection fraction less than 20-25%. Patient sitting up in chair and on 2 litres O2. O2 saturation 100%. No acute respiratory distress. Patient afebrile but has leukocytosis. Objective Vital Signs - 12hr 12/16/18 12/16/18 12/16/18 02:30 03:05 07:29 Temperature 98.6 F 98.0 F Pulse Rate 73 68 Pulse Rate [ Anterior Bilateral Throughout] Pulse Rate [ From Monitor] Respiratory 20 20 Rate Respiratory Rate [Anterior Bilateral Throughout] Blood Pressure 118/52 128/59 121/62 O2 Sat by Pulse 100 Oximetry 12/16/18 12/16/18 12/16/18 07:56 07:57 09:16 Temperature Pulse Rate 66 Pulse Rate [ 66 Anterior Bilateral Throughout] Pulse Rate [ From Monitor] Respiratory Rate Respiratory 16 Rate [Anterior Bilateral Throughout] Blood Pressure 121/62 O2 Sat by Pulse 100 Oximetry 12/16/18 12/16/18 09:17 10:00 Temperature Pulse Rate 66 78 Pulse Rate [ Anterior Bilateral Throughout] Pulse Rate [ 68 From Monitor] Respiratory 20 Rate Respiratory Rate [Anterior Bilateral Throughout] Blood Pressure 121/62 O2 Sat by Pulse 100 Oximetry Constitutional: no acute distress, alert Eyes: non-icteric ENT: oropharynx moist Neck: supple, no lymphadenopathy, no JVD Effort: normal Ascultation: Bilateral: diminished breath sounds Cardiovascular: regular rate and rhythm Gastrointestinal: normoactive bowel sounds, soft, non-tender Integumentary: normal Extremities: no cyanosis, no edema Neurologic: normal mental status, non-focal exam, pupils equal and round Psychiatric: mood appropriate, affect normal CBC and BMP: 12/13/18 04:23 12/14/18 08:46 ABG, PT/INR, D-dimer: ABG POC ABG pH 7.415 (7.35-7.45) 12/08/18 10:07 POC ABG pCO2 37.1 (35-45) 12/08/18 10:07 POC ABG pO2 70 (80-105) L 12/08/18 10:07 POC ABG HCO3 23.8 (22-26 mml/L) 12/08/18 10:07 POC ABG Total CO2 25 (23-27mmol/L) 12/08/18 10:07 POC ABG O2 Sat 94 12/08/18 10:07 PT/INR, D-dimer PT 14.0 Sec. (12.2-14.9) 12/14/18 08:46 INR 1.11 (0.87-1.13) 12/14/18 08:46 Abnormal lab findings: Abnormal Labs 12/08/18 12/08/18 12/08/18 09:31 09:31 09:31 WBC 16.4 H RBC 3.32 L Hgb 9.7 L Hct 29.1 L RDW 15.6 H Plt Count Lymph % (Auto) 5.4 L [place] % (Auto) Lymph # 0.9 L [place] # 0.9 H Seg Neutrophils % 88.9 H Seg Neuts % (Manual) Lymphocytes % (Manual) Nucleated RBC % Seg Neutrophils # 14.6 H Seg Neutrophils # Man Lymphocytes # (Manual) PT INR POC ABG pO2 Sodium 132 L Potassium Chloride 96.1 L Carbon Dioxide BUN Creatinine 0.7 L Glucose 186 H POC Glucose Lactic Acid 2.50 H* Iron TIBC Total Creatine Kinase CK-MB (CK-2) NT-Pro-B Natriuret Pep Albumin Vitamin B12 Vancomycin Trough 12/08/18 12/08/18 12/08/18 09:31 09:31 09:31 WBC RBC Hgb Hct RDW Plt Count Lymph % (Auto) [place] % (Auto) Lymph # [place] # Seg Neutrophils % Seg Neuts % (Manual) Lymphocytes % (Manual) Nucleated RBC % Seg Neutrophils # Seg Neutrophils # Man Lymphocytes # (Manual) PT 18.7 H INR 1.60 H POC ABG pO2 Sodium Potassium Chloride Carbon Dioxide BUN Creatinine Glucose POC Glucose Lactic Acid Iron TIBC Total Creatine Kinase 185 H CK-MB (CK-2) 4.1 H NT-Pro-B Natriuret Pep 4456 H Albumin 3.7 L Vitamin B12 Vancomycin Trough 12/08/18 12/08/18 12/08/18 10:07 10:45 20:35 WBC RBC Hgb Hct RDW Plt Count Lymph % (Auto) [place] % (Auto) Lymph # [place] # Seg Neutrophils % Seg Neuts % (Manual) Lymphocytes % (Manual) Nucleated RBC % Seg Neutrophils # Seg Neutrophils # Man Lymphocytes # (Manual) PT INR POC ABG pO2 70 L Sodium Potassium Chloride Carbon Dioxide BUN Creatinine Glucose POC Glucose Lactic Acid 2.30 H* Iron 21 L TIBC 242 L Total Creatine Kinase CK-MB (CK-2) NT-Pro-B Natriuret Pep Albumin Vitamin B12 Vancomycin Trough 12/08/18 12/09/18 12/09/18 20:35 06:54 06:54 WBC 12.2 H RBC 3.28 L Hgb 9.4 L Hct 28.9 L RDW 16.3 H Plt Count Lymph % (Auto) 12.0 L [place] % (Auto) 8.4 H Lymph # [place] # 1.0 H Seg Neutrophils % 77.7 H Seg Neuts % (Manual) Lymphocytes % (Manual) Nucleated RBC % Seg Neutrophils # 9.5 H Seg Neutrophils # Man Lymphocytes # (Manual) PT INR POC ABG pO2 Sodium 132 L Potassium Chloride 93.8 L Carbon Dioxide BUN 6 L Creatinine 0.5 L Glucose 107 H POC Glucose Lactic Acid Iron TIBC Total Creatine Kinase CK-MB (CK-2) NT-Pro-B Natriuret Pep Albumin 3.6 L Vitamin B12 1587 H Vancomycin Trough 12/09/18 12/09/18 12/09/18 08:16 11:38 16:39 WBC RBC Hgb Hct RDW Plt Count Lymph % (Auto) [place] % (Auto) Lymph # [place] # Seg Neutrophils % Seg Neuts % (Manual) Lymphocytes % (Manual) Nucleated RBC % Seg Neutrophils # Seg Neutrophils # Man Lymphocytes # (Manual) PT INR POC ABG pO2 Sodium Potassium Chloride Carbon Dioxide BUN Creatinine Glucose POC Glucose 108 H 143 H 187 H Lactic Acid Iron TIBC Total Creatine Kinase CK-MB (CK-2) NT-Pro-B Natriuret Pep Albumin Vitamin B12 Vancomycin Trough 12/09/18 12/10/18 12/10/18 22:26 07:48 11:28 WBC RBC Hgb Hct RDW Plt Count Lymph % (Auto) [place] % (Auto) Lymph # [place] # Seg Neutrophils % Seg Neuts % (Manual) Lymphocytes % (Manual) Nucleated RBC % Seg Neutrophils # Seg Neutrophils # Man Lymphocytes # (Manual) PT INR POC ABG pO2 Sodium Potassium Chloride Carbon Dioxide BUN Creatinine Glucose POC Glucose 244 H 197 H 267 H Lactic Acid Iron TIBC Total Creatine Kinase CK-MB (CK-2) NT-Pro-B Natriuret Pep Albumin Vitamin B12 Vancomycin Trough 12/10/18 12/10/18 12/11/18 16:28 22:01 04:47 WBC 17.3 H RBC 3.41 L Hgb 9.8 L Hct 29.5 L RDW 16.0 H Plt Count 451 H Lymph % (Auto) [place] % (Auto) Lymph # [place] # Seg Neutrophils % Seg Neuts % (Manual) 93.0 H Lymphocytes % (Manual) 4.0 L Nucleated RBC % 1.0 H Seg Neutrophils # Seg Neutrophils # Man 16.1 H Lymphocytes # (Manual) 0.7 L PT INR POC ABG pO2 Sodium Potassium Chloride Carbon Dioxide BUN Creatinine Glucose POC Glucose 227 H 249 H Lactic Acid Iron TIBC Total Creatine Kinase CK-MB (CK-2) NT-Pro-B Natriuret Pep Albumin Vitamin B12 Vancomycin Trough 12/11/18 12/11/18 12/11/18 04:47 07:24 11:34 WBC RBC Hgb Hct RDW Plt Count Lymph % (Auto) [place] % (Auto) Lymph # [place] # Seg Neutrophils % Seg Neuts % (Manual) Lymphocytes % (Manual) Nucleated RBC % Seg Neutrophils # Seg Neutrophils # Man Lymphocytes # (Manual) PT INR POC ABG pO2 Sodium 133 L Potassium Chloride 89.6 L Carbon Dioxide 31 H BUN Creatinine 0.6 L Glucose 218 H POC Glucose 206 H 206 H Lactic Acid Iron TIBC Total Creatine Kinase CK-MB (CK-2) NT-Pro-B Natriuret Pep Albumin Vitamin B12 Vancomycin Trough 12/11/18 12/11/18 12/11/18 16:29 20:41 21:05 WBC RBC Hgb Hct RDW Plt Count Lymph % (Auto) [place] % (Auto) Lymph # [place] # Seg Neutrophils % Seg Neuts % (Manual) Lymphocytes % (Manual) Nucleated RBC % Seg Neutrophils # Seg Neutrophils # Man Lymphocytes # (Manual) PT INR POC ABG pO2 Sodium Potassium Chloride Carbon Dioxide BUN Creatinine Glucose POC Glucose 344 H 440 H Lactic Acid Iron TIBC Total Creatine Kinase CK-MB (CK-2) NT-Pro-B Natriuret Pep Albumin Vitamin B12 Vancomycin Trough 21.1 H 12/12/18 12/12/18 12/12/18 07:33 12:22 16:47 WBC RBC Hgb Hct RDW Plt Count Lymph % (Auto) [place] % (Auto) Lymph # [place] # Seg Neutrophils % Seg Neuts % (Manual) Lymphocytes % (Manual) Nucleated RBC % Seg Neutrophils # Seg Neutrophils # Man Lymphocytes # (Manual) PT INR POC ABG pO2 Sodium Potassium Chloride Carbon Dioxide BUN Creatinine Glucose POC Glucose 200 H 324 H 290 H Lactic Acid Iron TIBC Total Creatine Kinase CK-MB (CK-2) NT-Pro-B Natriuret Pep Albumin Vitamin B12 Vancomycin Trough 12/12/18 12/13/18 12/13/18 21:41 04:23 04:23 WBC 16.5 H RBC Hgb 11.6 L Hct 35.3 L RDW 16.4 H Plt Count 497 H Lymph % (Auto) 5.5 L [place] % (Auto) Lymph # 0.9 L [place] # 0.9 H Seg Neutrophils % 88.8 H Seg Neuts % (Manual) Lymphocytes % (Manual) Nucleated RBC % Seg Neutrophils # 14.7 H Seg Neutrophils # Man Lymphocytes # (Manual) PT INR POC ABG pO2 Sodium 128 L Potassium 5.3 H D Chloride 79.5 L Carbon Dioxide 35 H BUN Creatinine 0.6 L Glucose 268 H POC Glucose 327 H Lactic Acid Iron TIBC Total Creatine Kinase CK-MB (CK-2) NT-Pro-B Natriuret Pep Albumin Vitamin B12 Vancomycin Trough 12/13/18 12/13/18 12/13/18 08:43 11:26 15:43 WBC RBC Hgb Hct RDW Plt Count Lymph % (Auto) [place] % (Auto) Lymph # [place] # Seg Neutrophils % Seg Neuts % (Manual) Lymphocytes % (Manual) Nucleated RBC % Seg Neutrophils # Seg Neutrophils # Man Lymphocytes # (Manual) PT INR POC ABG pO2 Sodium Potassium Chloride Carbon Dioxide BUN Creatinine Glucose POC Glucose 290 H 357 H 384 H Lactic Acid Iron TIBC Total Creatine Kinase CK-MB (CK-2) NT-Pro-B Natriuret Pep Albumin Vitamin B12 Vancomycin Trough 12/13/18 12/14/18 12/14/18 21:56 07:40 08:46 WBC RBC Hgb Hct RDW Plt Count Lymph % (Auto) [place] % (Auto) Lymph # [place] # Seg Neutrophils % Seg Neuts % (Manual) Lymphocytes % (Manual) Nucleated RBC % Seg Neutrophils # Seg Neutrophils # Man Lymphocytes # (Manual) PT INR POC ABG pO2 Sodium 132 L Potassium Chloride 78.1 L Carbon Dioxide 43 H* D BUN Creatinine 0.7 L Glucose 213 H POC Glucose 320 H 223 H Lactic Acid Iron TIBC Total Creatine Kinase CK-MB (CK-2) NT-Pro-B Natriuret Pep Albumin Vitamin B12 Vancomycin Trough 12/14/18 12/14/18 12/14/18 12:04 16:41 21:26 WBC RBC Hgb Hct RDW Plt Count Lymph % (Auto) [place] % (Auto) Lymph # [place] # Seg Neutrophils % Seg Neuts % (Manual) Lymphocytes % (Manual) Nucleated RBC % Seg Neutrophils # Seg Neutrophils # Man Lymphocytes # (Manual) PT INR POC ABG pO2 Sodium Potassium Chloride Carbon Dioxide BUN Creatinine Glucose POC Glucose 207 H 333 H 322 H Lactic Acid Iron TIBC Total Creatine Kinase CK-MB (CK-2) NT-Pro-B Natriuret Pep Albumin Vitamin B12 Vancomycin Trough 12/15/18 12/15/18 12/15/18 06:10 07:29 10:43 WBC RBC Hgb Hct RDW Plt Count Lymph % (Auto) [place] % (Auto) Lymph # [place] # Seg Neutrophils % Seg Neuts % (Manual) Lymphocytes % (Manual) Nucleated RBC % Seg Neutrophils # Seg Neutrophils # Man Lymphocytes # (Manual) PT INR POC ABG pO2 Sodium Potassium Chloride Carbon Dioxide BUN Creatinine Glucose POC Glucose 133 H 141 H 138 H Lactic Acid Iron TIBC Total Creatine Kinase CK-MB (CK-2) NT-Pro-B Natriuret Pep Albumin Vitamin B12 Vancomycin Trough 12/15/18 12/15/18 12/15/18 16:05 19:11 21:11 WBC RBC Hgb Hct RDW Plt Count Lymph % (Auto) [place] % (Auto) Lymph # [place] # Seg Neutrophils % Seg Neuts % (Manual) Lymphocytes % (Manual) Nucleated RBC % Seg Neutrophils # Seg Neutrophils # Man Lymphocytes # (Manual) PT INR POC ABG pO2 Sodium Potassium Chloride Carbon Dioxide BUN Creatinine Glucose POC Glucose 147 H 284 H 312 H Lactic Acid Iron TIBC Total Creatine Kinase CK-MB (CK-2) NT-Pro-B Natriuret Pep Albumin Vitamin B12 Vancomycin Trough 12/16/18 12/16/18 07:36 11:41 WBC RBC Hgb Hct RDW Plt Count Lymph % (Auto) [place] % (Auto) Lymph # [place] # Seg Neutrophils % Seg Neuts % (Manual) Lymphocytes % (Manual) Nucleated RBC % Seg Neutrophils # Seg Neutrophils # Man Lymphocytes # (Manual) PT INR POC ABG pO2 Sodium Potassium Chloride Carbon Dioxide BUN Creatinine Glucose POC Glucose 293 H 323 H Lactic Acid Iron TIBC Total Creatine Kinase CK-MB (CK-2) NT-Pro-B Natriuret Pep Albumin Vitamin B12 Vancomycin Trough
--- NOTE | 2018-12-16 17:18 | Progress Note ---
Assessment and Plan Acute hypoxic respiratory failure, COPD exacerbation sp steroids, now dc, duo nebs, nebulizer treatments, oxygen support, continue antibiotics Bilateral pleural effusion - Chest ultrasound was done - Pulmonary consulted DM2 with persistent hyperglycemia -a1c is 5.4, so high glc is due to steroids dc steroids, was bolused with insulin. cont ssi Sepsis secondary to Bilateral pneumonia completed abx History of PE - Continue eliquis Paroxysmal atrial flutter - Controlled, continue eliquis, Cardiomyopathy, chronic systolic CHF with acute exacerbation - Patient is on IV Lasix, HadRight and left cath - Cardiology consulted and recommend to continue diurese the patient and right and left heart cath on Friday DVT prophylaxis Disposition; continue inpatient care. Right and left cath on friday Subjective Date of service: 12/16/18 Principal diagnosis: pneumonia Interval history: This is an 78-year old male with multiple medical problems. 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 Patient is on home O2. He also has paroxysmal atrial flutter, a history of bilateral PE, on Eliquis for oral anticoagulation. Patient presents with shortness of breath, coughs, leukocytosis, admitted with COPD exacerbation, Pneumonia and decompensated heart failure. Objective - Constitutional Vitals: Vital Signs - 12hr 12/16/18 12/16/18 12/16/18 07:29 07:56 07:57 Temperature 98.0 F Pulse Rate 68 Pulse Rate [ 66 Anterior Bilateral Throughout] Pulse Rate [ From Monitor] Respiratory 20 Rate Respiratory 16 Rate [Anterior Bilateral Throughout] Blood Pressure 121/62 O2 Sat by Pulse 100 100 Oximetry 12/16/18 12/16/18 12/16/18 09:16 09:17 10:00 Temperature Pulse Rate 66 66 78 Pulse Rate [ Anterior Bilateral Throughout] Pulse Rate [ 68 From Monitor] Respiratory 20 Rate Respiratory Rate [Anterior Bilateral Throughout] Blood Pressure 121/62 121/62 O2 Sat by Pulse 100 Oximetry 12/16/18 13:15 Temperature 98.0 F Pulse Rate Pulse Rate [ Anterior Bilateral Throughout] Pulse Rate [ From Monitor] Respiratory 20 Rate Respiratory Rate [Anterior Bilateral Throughout] Blood Pressure 101/42 O2 Sat by Pulse Oximetry General appearance: Present: no acute distress, well-nourished - EENT Eyes: PERRL, EOM intact ENT: hearing intact, clear oral mucosa Ears: bilateral: normal - Neck Neck: supple, normal ROM - Respiratory Respiratory effort: normal Respiratory: bilateral: CTA - Breasts Breasts: normal - Cardiovascular Rhythm: regular Heart Sounds: Present: S1 & S2. Absent: gallop, rub Extremities: pulses intact, No edema, normal color, Full ROM - Gastrointestinal General gastrointestinal: Present: soft, non-tender, non-distended, normal bowel sounds - Genitourinary Male genitourinary: normal - Integumentary Integumentary: clear, warm, dry - Musculoskeletal Musculoskeletal: 1, strength equal bilaterally - Neurologic Neurologic: moves all extremities - Psychiatric Psychiatric: memory intact, appropriate mood/affect, intact judgment & insight - Labs CBC & Chem 7: 12/13/18 04:23 12/14/18 08:46 Labs: Abnormal lab results 12/15/18 12/15/18 12/16/18 Range/Units 19:11 21:11 07:36 POC Glucose 284 H 312 H 293 H (70-105) 12/16/18 12/16/18 Range/Units 11:41 16:48 POC Glucose 323 H 367 H (70-105)
[2018-12-17] MEDS: HumaLOG SUB-Q SCH ×4 (06:43→21:26)
[2018-12-17] MEDS: DUONEB *Not for PRN Use IH SCH ×4 (07:31→19:43)
[2018-12-17] MEDS: AMARYL PO SCH (08:05)
--- NOTE | 2018-12-17 08:38 | XRay Report ---
CHEST 2 VIEWS AP and lateral 0815 INDICATION / CLINICAL INFORMATION: Follow up on pleural effusions.. COMPARISON: 12/12/2018 FINDINGS: SUPPORT DEVICES: None. HEART / MEDIASTINUM: No significant abnormality. LUNGS / PLEURA: Previous interstitial edema has almost completely cleared. No areas of consolidation are seen. No pleural effusions are obvious. No pneumothorax. ADDITIONAL FINDINGS: No significant additional findings. IMPRESSION: Improvement Signer Name: Feliberto Salazar MD Signed: 12/17/2018 8:34 AM Workstation Name: [id number]
[2018-12-17] MEDS: ALDACTONE PO SCH (09:23)
[2018-12-17] MEDS: COREG PO SCH ×2 (09:24→21:29)
[2018-12-17] MEDS: HALFPRIN EC PO SCH (09:24)
[2018-12-17] MEDS: PEPCID PO SCH ×2 (09:25→21:28)
[2018-12-17] MEDS: HEMOCYTE PLUS PO SCH (09:25)
[2018-12-17] MEDS: MIRALAX 3350 PO SCH (09:25)
[2018-12-17] MEDS: LASIX PO SCH (09:25)
[2018-12-17] MEDS: ZESTRIL PO SCH (09:26)
[2018-12-17] MEDS: SODIUM CHLORIDE FLUSH SYRINGE 10 ML IV SCH ×2 (09:26→21:28)
[2018-12-17] MEDS: VITAMIN C PO SCH (09:26)
[2018-12-17] MEDS: SOLU-Medrol IV SCH ×2 (09:26→21:28)
--- NOTE | 2018-12-17 09:48 | Progress Note ---
Assessment and Plan COPD exacerbation on home oxygen Pneumonia Chronic systolic heart failure Leukocytosis -likely be related to the ongoing high-dose therapy with intravenous methyl prednisolone. 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 Right and left heart catheterization this admission: Normal right and left heart filling pressures, no significant pulmonary hypertension. No significant obstructive coronary artery disease. Dilated nonischemic cardiomyopathy, severe left ventricle systolic dysfunction, ejection fraction less than 20-25%. Recommendations: Fluid/salt restriction. Continue medical therapy for nonischemic cardiomyopathy and paroxysmal afib. Stable for cardiac discharge home today. Pt will f/u with Dr Alvarez, primary woodworking craftsman, December 20 at 250p. Subjective Date of service: 12/17/18 Principal diagnosis: pneumonia Interval history: Patient is sitting up in the bedside chair. He has no complaints. Objective Vital Signs Temp Pulse Pulse Pulse Resp Resp BP 12/17/18 09:26 67 133/68 12/17/18 09:24 67 133/68 12/17/18 09:23 67 133/68 12/17/18 07:33 12/17/18 07:32 73 19 12/17/18 07:29 97.9 F 67 20 133/68 12/17/18 02:27 62 12/17/18 02:25 97.2 F L 18 118/61 12/16/18 21:53 73 123/61 12/16/18 19:21 98.6 F 73 20 123/61 12/16/18 13:15 98.0 F 20 101/42 12/16/18 10:00 78 68 20 Pulse Ox 12/17/18 09:26 12/17/18 09:24 12/17/18 09:23 12/17/18 07:33 100 12/17/18 07:32 12/17/18 07:29 100 12/17/18 02:27 100 12/17/18 02:25 12/16/18 21:53 12/16/18 19:21 100 12/16/18 13:15 12/16/18 10:00 100 - Physical Examination General: No Apparent Distress HEENT: Positive: PERRL Neck: Positive: trachea midline Cardiac: Positive: Reg Rate and Rhythm Lungs: Positive: Decreased Breath Sounds Neuro: Positive: Grossly Intact Extremities: Absent: edema
--- NOTE | 2018-12-17 14:28 | Progress Note ---
Assessment and Plan Acute respiratory failure with hypoxia Bilateral pneumonia COPD (chronic obstructive pulmonary disease) CHF (congestive heart failure) Diabetes Pleural effusion, bilateral Pulmonary edema - continue supplemental oxygen to keep O2 sats > 90% - continue bronchodilators with pulmonary hygiene per RT - continue systemic steroids with slow taper - continue inhaled corticosteroids for COPD - complete empiric CAP AB's therapy - continue GI & VTE prophylaxis - continue to optimize heart failure measures per cardiology team - Home oxygen evaluation prior to discharge - Out patient pulmonary / sleep clinic follow up post discharge .... re-evaluate in am & prn Subjective Date of service: 12/17/18 Principal diagnosis: Ac hypoxemic resp failure; Gera PNA; AE-COPD; CHF; Pleural effusion Interval history: Patient is seen today for: Acute respiratory failure with hypoxia; Bilateral pneumonia; COPD (chronic obstructive pulmonary disease); CHF (congestive heart failure); Diabetes; Pleural effusion, bilateral; Pulmonary edema Seen and examined at bedside; 24hour events reviewed; nursing and respiratory care staff consulted; no adverse overnight events reported to me; resting peacef ully in bed; denies acute chest pains or palpitations; overall feels better; No N/V/F/C Objective Vital Signs - 12hr 12/17/18 12/17/18 12/17/18 07:29 07:32 07:33 Temperature 97.9 F Pulse Rate 67 Pulse Rate [ 73 Anterior Bilateral Throughout] Pulse Rate [ From Monitor] Respiratory 20 Rate Respiratory 19 Rate [Anterior Bilateral Throughout] Blood Pressure 133/68 O2 Sat by Pulse 100 100 Oximetry 12/17/18 12/17/18 12/17/18 09:23 09:24 09:26 Temperature Pulse Rate 67 67 67 Pulse Rate [ Anterior Bilateral Throughout] Pulse Rate [ From Monitor] Respiratory Rate Respiratory Rate [Anterior Bilateral Throughout] Blood Pressure 133/68 133/68 133/68 O2 Sat by Pulse Oximetry 12/17/18 10:00 Temperature Pulse Rate Pulse Rate [ Anterior Bilateral Throughout] Pulse Rate [ 67 From Monitor] Respiratory 20 Rate Respiratory Rate [Anterior Bilateral Throughout] Blood Pressure O2 Sat by Pulse 100 Oximetry Constitutional: no acute distress, alert Eyes: non-icteric ENT: oropharynx moist Neck: supple, no lymphadenopathy, no JVD Effort: normal Ascultation: Bilateral: diminished breath sounds Cardiovascular: regular rate and rhythm Gastrointestinal: normoactive bowel sounds, soft, non-tender Integumentary: normal Extremities: no cyanosis, no edema Neurologic: normal mental status, non-focal exam, pupils equal and round Psychiatric: mood appropriate, affect normal CBC and BMP: 12/18/18 05:53 12/18/18 05:53 ABG, PT/INR, D-dimer: ABG POC ABG pH 7.415 (7.35-7.45) 12/08/18 10:07 POC ABG pCO2 37.1 (35-45) 12/08/18 10:07 POC ABG pO2 70 (80-105) L 12/08/18 10:07 POC ABG HCO3 23.8 (22-26 mml/L) 12/08/18 10:07 POC ABG Total CO2 25 (23-27mmol/L) 12/08/18 10:07 POC ABG O2 Sat 94 12/08/18 10:07 PT/INR, D-dimer PT 14.0 Sec. (12.2-14.9) 12/14/18 08:46 INR 1.11 (0.87-1.13) 12/14/18 08:46 Abnormal lab findings: Abnormal Labs 12/08/18 12/08/18 12/08/18 09:31 09:31 09:31 WBC 16.4 H RBC 3.32 L Hgb 9.7 L Hct 29.1 L RDW 15.6 H Plt Count Lymph % (Auto) 5.4 L [place] % (Auto) Lymph # 0.9 L [place] # 0.9 H Seg Neutrophils % 88.9 H Seg Neuts % (Manual) Lymphocytes % (Manual) Nucleated RBC % Seg Neutrophils # 14.6 H Seg Neutrophils # Man Lymphocytes # (Manual) PT INR POC ABG pO2 Sodium 132 L Potassium Chloride 96.1 L Carbon Dioxide BUN Creatinine 0.7 L Glucose 186 H POC Glucose Lactic Acid 2.50 H* Iron TIBC Total Creatine Kinase CK-MB (CK-2) NT-Pro-B Natriuret Pep Albumin Vitamin B12 Vancomycin Trough 12/08/18 12/08/18 12/08/18 09:31 09:31 09:31 WBC RBC Hgb Hct RDW Plt Count Lymph % (Auto) [place] % (Auto) Lymph # [place] # Seg Neutrophils % Seg Neuts % (Manual) Lymphocytes % (Manual) Nucleated RBC % Seg Neutrophils # Seg Neutrophils # Man Lymphocytes # (Manual) PT 18.7 H INR 1.60 H POC ABG pO2 Sodium Potassium Chloride Carbon Dioxide BUN Creatinine Glucose POC Glucose Lactic Acid Iron TIBC Total Creatine Kinase 185 H CK-MB (CK-2) 4.1 H NT-Pro-B Natriuret Pep 4456 H Albumin 3.7 L Vitamin B12 Vancomycin Trough 12/08/18 12/08/18 12/08/18 10:07 10:45 20:35 WBC RBC Hgb Hct RDW Plt Count Lymph % (Auto) [place] % (Auto) Lymph # [place] # Seg Neutrophils % Seg Neuts % (Manual) Lymphocytes % (Manual) Nucleated RBC % Seg Neutrophils # Seg Neutrophils # Man Lymphocytes # (Manual) PT INR POC ABG pO2 70 L Sodium Potassium Chloride Carbon Dioxide BUN Creatinine Glucose POC Glucose Lactic Acid 2.30 H* Iron 21 L TIBC 242 L Total Creatine Kinase CK-MB (CK-2) NT-Pro-B Natriuret Pep Albumin Vitamin B12 Vancomycin Trough 12/08/18 12/09/18 12/09/18 20:35 06:54 06:54 WBC 12.2 H RBC 3.28 L Hgb 9.4 L Hct 28.9 L RDW 16.3 H Plt Count Lymph % (Auto) 12.0 L [place] % (Auto) 8.4 H Lymph # [place] # 1.0 H Seg Neutrophils % 77.7 H Seg Neuts % (Manual) Lymphocytes % (Manual) Nucleated RBC % Seg Neutrophils # 9.5 H Seg Neutrophils # Man Lymphocytes # (Manual) PT INR POC ABG pO2 Sodium 132 L Potassium Chloride 93.8 L Carbon Dioxide BUN 6 L Creatinine 0.5 L Glucose 107 H POC Glucose Lactic Acid Iron TIBC Total Creatine Kinase CK-MB (CK-2) NT-Pro-B Natriuret Pep Albumin 3.6 L Vitamin B12 1587 H Vancomycin Trough 12/09/18 12/09/18 12/09/18 08:16 11:38 16:39 WBC RBC Hgb Hct RDW Plt Count Lymph % (Auto) [place] % (Auto) Lymph # [place] # Seg Neutrophils % Seg Neuts % (Manual) Lymphocytes % (Manual) Nucleated RBC % Seg Neutrophils # Seg Neutrophils # Man Lymphocytes # (Manual) PT INR POC ABG pO2 Sodium Potassium Chloride Carbon Dioxide BUN Creatinine Glucose POC Glucose 108 H 143 H 187 H Lactic Acid Iron TIBC Total Creatine Kinase CK-MB (CK-2) NT-Pro-B Natriuret Pep Albumin Vitamin B12 Vancomycin Trough 12/09/18 12/10/18 12/10/18 22:26 07:48 11:28 WBC RBC Hgb Hct RDW Plt Count Lymph % (Auto) [place] % (Auto) Lymph # [place] # Seg Neutrophils % Seg Neuts % (Manual) Lymphocytes % (Manual) Nucleated RBC % Seg Neutrophils # Seg Neutrophils # Man Lymphocytes # (Manual) PT INR POC ABG pO2 Sodium Potassium Chloride Carbon Dioxide BUN Creatinine Glucose POC Glucose 244 H 197 H 267 H Lactic Acid Iron TIBC Total Creatine Kinase CK-MB (CK-2) NT-Pro-B Natriuret Pep Albumin Vitamin B12 Vancomycin Trough 12/10/18 12/10/18 12/11/18 16:28 22:01 04:47 WBC 17.3 H RBC 3.41 L Hgb 9.8 L Hct 29.5 L RDW 16.0 H Plt Count 451 H Lymph % (Auto) [place] % (Auto) Lymph # [place] # Seg Neutrophils % Seg Neuts % (Manual) 93.0 H Lymphocytes % (Manual) 4.0 L Nucleated RBC % 1.0 H Seg Neutrophils # Seg Neutrophils # Man 16.1 H Lymphocytes # (Manual) 0.7 L PT INR POC ABG pO2 Sodium Potassium Chloride Carbon Dioxide BUN Creatinine Glucose POC Glucose 227 H 249 H Lactic Acid Iron TIBC Total Creatine Kinase CK-MB (CK-2) NT-Pro-B Natriuret Pep Albumin Vitamin B12 Vancomycin Trough 12/11/18 12/11/18 12/11/18 04:47 07:24 11:34 WBC RBC Hgb Hct RDW Plt Count Lymph % (Auto) [place] % (Auto) Lymph # [place] # Seg Neutrophils % Seg Neuts % (Manual) Lymphocytes % (Manual) Nucleated RBC % Seg Neutrophils # Seg Neutrophils # Man Lymphocytes # (Manual) PT INR POC ABG pO2 Sodium 133 L Potassium Chloride 89.6 L Carbon Dioxide 31 H BUN Creatinine 0.6 L Glucose 218 H POC Glucose 206 H 206 H Lactic Acid Iron TIBC Total Creatine Kinase CK-MB (CK-2) NT-Pro-B Natriuret Pep Albumin Vitamin B12 Vancomycin Trough 12/11/18 12/11/18 12/11/18 16:29 20:41 21:05 WBC RBC Hgb Hct RDW Plt Count Lymph % (Auto) [place] % (Auto) Lymph # [place] # Seg Neutrophils % Seg Neuts % (Manual) Lymphocytes % (Manual) Nucleated RBC % Seg Neutrophils # Seg Neutrophils # Man Lymphocytes # (Manual) PT INR POC ABG pO2 Sodium Potassium Chloride Carbon Dioxide BUN Creatinine Glucose POC Glucose 344 H 440 H Lactic Acid Iron TIBC Total Creatine Kinase CK-MB (CK-2) NT-Pro-B Natriuret Pep Albumin Vitamin B12 Vancomycin Trough 21.1 H 12/12/18 12/12/18 12/12/18 07:33 12:22 16:47 WBC RBC Hgb Hct RDW Plt Count Lymph % (Auto) [place] % (Auto) Lymph # [place] # Seg Neutrophils % Seg Neuts % (Manual) Lymphocytes % (Manual) Nucleated RBC % Seg Neutrophils # Seg Neutrophils # Man Lymphocytes # (Manual) PT INR POC ABG pO2 Sodium Potassium Chloride Carbon Dioxide BUN Creatinine Glucose POC Glucose 200 H 324 H 290 H Lactic Acid Iron TIBC Total Creatine Kinase CK-MB (CK-2) NT-Pro-B Natriuret Pep Albumin Vitamin B12 Vancomycin Trough 12/12/18 12/13/18 12/13/18 21:41 04:23 04:23 WBC 16.5 H RBC Hgb 11.6 L Hct 35.3 L RDW 16.4 H Plt Count 497 H Lymph % (Auto) 5.5 L [place] % (Auto) Lymph # 0.9 L [place] # 0.9 H Seg Neutrophils % 88.8 H Seg Neuts % (Manual) Lymphocytes % (Manual) Nucleated RBC % Seg Neutrophils # 14.7 H Seg Neutrophils # Man Lymphocytes # (Manual) PT INR POC ABG pO2 Sodium 128 L Potassium 5.3 H D Chloride 79.5 L Carbon Dioxide 35 H BUN Creatinine 0.6 L Glucose 268 H POC Glucose 327 H Lactic Acid Iron TIBC Total Creatine Kinase CK-MB (CK-2) NT-Pro-B Natriuret Pep Albumin Vitamin B12 Vancomycin Trough 12/13/18 12/13/18 12/13/18 08:43 11:26 15:43 WBC RBC Hgb Hct RDW Plt Count Lymph % (Auto) [place] % (Auto) Lymph # [place] # Seg Neutrophils % Seg Neuts % (Manual) Lymphocytes % (Manual) Nucleated RBC % Seg Neutrophils # Seg Neutrophils # Man Lymphocytes # (Manual) PT INR POC ABG pO2 Sodium Potassium Chloride Carbon Dioxide BUN Creatinine Glucose POC Glucose 290 H 357 H 384 H Lactic Acid Iron TIBC Total Creatine Kinase CK-MB (CK-2) NT-Pro-B Natriuret Pep Albumin Vitamin B12 Vancomycin Trough 12/13/18 12/14/18 12/14/18 21:56 07:40 08:46 WBC RBC Hgb Hct RDW Plt Count Lymph % (Auto) [place] % (Auto) Lymph # [place] # Seg Neutrophils % Seg Neuts % (Manual) Lymphocytes % (Manual) Nucleated RBC % Seg Neutrophils # Seg Neutrophils # Man Lymphocytes # (Manual) PT INR POC ABG pO2 Sodium 132 L Potassium Chloride 78.1 L Carbon Dioxide 43 H* D BUN Creatinine 0.7 L Glucose 213 H POC Glucose 320 H 223 H Lactic Acid Iron TIBC Total Creatine Kinase CK-MB (CK-2) NT-Pro-B Natriuret Pep Albumin Vitamin B12 Vancomycin Trough 12/14/18 12/14/18 12/14/18 12:04 16:41 21:26 WBC RBC Hgb Hct RDW Plt Count Lymph % (Auto) [place] % (Auto) Lymph # [place] # Seg Neutrophils % Seg Neuts % (Manual) Lymphocytes % (Manual) Nucleated RBC % Seg Neutrophils # Seg Neutrophils # Man Lymphocytes # (Manual) PT INR POC ABG pO2 Sodium Potassium Chloride Carbon Dioxide BUN Creatinine Glucose POC Glucose 207 H 333 H 322 H Lactic Acid Iron TIBC Total Creatine Kinase CK-MB (CK-2) NT-Pro-B Natriuret Pep Albumin Vitamin B12 Vancomycin Trough 12/15/18 12/15/18 12/15/18 06:10 07:29 10:43 WBC RBC Hgb Hct RDW Plt Count Lymph % (Auto) [place] % (Auto) Lymph # [place] # Seg Neutrophils % Seg Neuts % (Manual) Lymphocytes % (Manual) Nucleated RBC % Seg Neutrophils # Seg Neutrophils # Man Lymphocytes # (Manual) PT INR POC ABG pO2 Sodium Potassium Chloride Carbon Dioxide BUN Creatinine Glucose POC Glucose 133 H 141 H 138 H Lactic Acid Iron TIBC Total Creatine Kinase CK-MB (CK-2) NT-Pro-B Natriuret Pep Albumin Vitamin B12 Vancomycin Trough 12/15/18 12/15/18 12/15/18 16:05 19:11 21:11 WBC RBC Hgb Hct RDW Plt Count Lymph % (Auto) [place] % (Auto) Lymph # [place] # Seg Neutrophils % Seg Neuts % (Manual) Lymphocytes % (Manual) Nucleated RBC % Seg Neutrophils # Seg Neutrophils # Man Lymphocytes # (Manual) PT INR POC ABG pO2 Sodium Potassium Chloride Carbon Dioxide BUN Creatinine Glucose POC Glucose 147 H 284 H 312 H Lactic Acid Iron TIBC Total Creatine Kinase CK-MB (CK-2) NT-Pro-B Natriuret Pep Albumin Vitamin B12 Vancomycin Trough 12/16/18 12/16/18 12/16/18 07:36 11:41 16:48 WBC RBC Hgb Hct RDW Plt Count Lymph % (Auto) [place] % (Auto) Lymph # [place] # Seg Neutrophils % Seg Neuts % (Manual) Lymphocytes % (Manual) Nucleated RBC % Seg Neutrophils # Seg Neutrophils # Man Lymphocytes # (Manual) PT INR POC ABG pO2 Sodium Potassium Chloride Carbon Dioxide BUN Creatinine Glucose POC Glucose 293 H 323 H 367 H Lactic Acid Iron TIBC Total Creatine Kinase CK-MB (CK-2) NT-Pro-B Natriuret Pep Albumin Vitamin B12 Vancomycin Trough 12/16/18 12/17/18 12/17/18 21:47 06:40 07:37 WBC RBC Hgb Hct RDW Plt Count Lymph % (Auto) [place] % (Auto) Lymph # [place] # Seg Neutrophils % Seg Neuts % (Manual) Lymphocytes % (Manual) Nucleated RBC % Seg Neutrophils # Seg Neutrophils # Man Lymphocytes # (Manual) PT INR POC ABG pO2 Sodium Potassium Chloride Carbon Dioxide BUN Creatinine Glucose POC Glucose 239 H 317 H 346 H Lactic Acid Iron TIBC Total Creatine Kinase CK-MB (CK-2) NT-Pro-B Natriuret Pep Albumin Vitamin B12 Vancomycin Trough 12/17/18 11:47 WBC RBC Hgb Hct RDW Plt Count Lymph % (Auto) [place] % (Auto) Lymph # [place] # Seg Neutrophils % Seg Neuts % (Manual) Lymphocytes % (Manual) Nucleated RBC % Seg Neutrophils # Seg Neutrophils # Man Lymphocytes # (Manual) PT INR POC ABG pO2 Sodium Potassium Chloride Carbon Dioxide BUN Creatinine Glucose POC Glucose 293 H Lactic Acid Iron TIBC Total Creatine Kinase CK-MB (CK-2) NT-Pro-B Natriuret Pep Albumin Vitamin B12 Vancomycin Trough Chest x-ray: image reviewed (no focal infiltrate; overall improved) Allied health notes reviewed: nursing
--- NOTE | 2018-12-17 16:27 | Progress Note ---
Assessment and Plan Acute hypoxic respiratory failure, COPD exacerbation sp steroids, now dc, duo nebs, nebulizer treatments, oxygen support, continue antibiotics Bilateral pleural effusion - Chest ultrasound was done - Pulmonary consulted DM2 with persistent hyperglycemia -a1c is 5.4, so high glc is due to steroids dc steroids, was bolused with insulin. cont ssi Sepsis secondary to Bilateral pneumonia completed abx History of PE - Continue eliquis Paroxysmal atrial flutter - Controlled, continue eliquis, Cardiomyopathy, chronic systolic CHF with acute exacerbation - Patient is on IV Lasix, HadRight and left cath - Cardiology consulted and recommend to continue diurese the patient and right and left heart cath on Friday DVT prophylaxis Disposition; Patient requests SNF for PT PT consult ordered Subjective Date of service: 12/17/18 Principal diagnosis: pneumonia Interval history: This is an 78-year old male with multiple medical problems. 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 Patient is on home O2. He also has paroxysmal atrial flutter, a history of bilateral PE, on Eliquis for oral anticoagulation. Patient presents with shortness of breath, coughs, leukocytosis, admitted with COPD exacerbation, Pneumonia and decompensated heart failure. Objective - Constitutional Vitals: Vital Signs - 12hr 12/17/18 12/17/18 12/17/18 07:29 07:32 07:33 Temperature 97.9 F Pulse Rate 67 Pulse Rate [ 73 Anterior Bilateral Throughout] Pulse Rate [ From Monitor] Respiratory 20 Rate Respiratory 19 Rate [Anterior Bilateral Throughout] Blood Pressure 133/68 O2 Sat by Pulse 100 100 Oximetry 12/17/18 12/17/18 12/17/18 09:23 09:24 09:26 Temperature Pulse Rate 67 67 67 Pulse Rate [ Anterior Bilateral Throughout] Pulse Rate [ From Monitor] Respiratory Rate Respiratory Rate [Anterior Bilateral Throughout] Blood Pressure 133/68 133/68 133/68 O2 Sat by Pulse Oximetry 12/17/18 10:00 Temperature Pulse Rate Pulse Rate [ Anterior Bilateral Throughout] Pulse Rate [ 67 From Monitor] Respiratory 20 Rate Respiratory Rate [Anterior Bilateral Throughout] Blood Pressure O2 Sat by Pulse 100 Oximetry General appearance: Present: no acute distress, well-nourished - EENT Eyes: PERRL, EOM intact ENT: hearing intact, clear oral mucosa Ears: bilateral: normal - Neck Neck: supple, normal ROM - Respiratory Respiratory effort: normal Respiratory: bilateral: CTA - Breasts Breasts: normal - Cardiovascular Heart rate: 78 Rhythm: regular Heart Sounds: Present: S1 & S2. Absent: gallop, rub Extremities: no ischemia, pulses intact, No edema, normal color, Full ROM - Gastrointestinal General gastrointestinal: Present: soft, non-tender, non-distended, normal bowel sounds - Genitourinary Male genitourinary: normal - Integumentary Integumentary: clear, warm, dry - Musculoskeletal Musculoskeletal: 1, strength equal bilaterally - Neurologic Neurologic: moves all extremities - Psychiatric Psychiatric: memory intact, appropriate mood/affect, intact judgment & insight - Labs CBC & Chem 7: 12/13/18 04:23 12/14/18 08:46 Labs: Abnormal lab results 12/16/18 12/16/18 12/17/18 Range/Units 16:48 21:47 06:40 POC Glucose 367 H 239 H 317 H (70-105) 12/17/18 12/17/18 Range/Units 07:37 11:47 POC Glucose 346 H 293 H (70-105)
[2018-12-18 06:40] LABS: Alanine Aminotransferase 13 units/L (7-56); Albumin 3.4 g/dL (3.9-5); BUN/Creatinine Ratio 32; Blood Urea Nitrogen 19 mg/dL (9-20); Calcium 8.8 mg/dL (8.4-10.2); Hemolysis Index 10
[2018-12-18 07:23] LABS: Basophils % (Auto) 0.2 % (0.0-1.8); Hematocrit 36.8 % (35.5-45.6); Lymphocytes # (Auto) 1.1 K/mm3 (1.2-5.4); Lymphocytes % (Auto) 6.2 % (13.4-35.0); Mean Corpuscular HGB Conc 33 % (32-34); Mean Corpuscular Volume 88 fl (84-94); Monocytes # (Auto) 0.6 K/mm3 (0.0-0.8); Monocytes % (Auto) 3.7 % (0.0-7.3); Platelet Count 381 K/mm3 (140-440); Red Blood Count 4.18 M/mm3 (3.65-5.03); Red Cell Distribution Width 16.9 % (13.2-15.2)
[2018-12-18] MEDS: HumaLOG SUB-Q SCH ×5 (08:42→22:44)
[2018-12-18] MEDS: AMARYL PO SCH (08:45)
--- NOTE | 2018-12-18 09:35 | Progress Note ---
Assessment and Plan -Acute hypoxic respiratory failure -Bilateral infiltrates, being treated as HAP -COPD-AE -Bilateral pleural effusions -Congestive heart failure s/p Right and left heart catheterization this admission Dilated nonischemic cardiomyopathy, severe left ventricle systolic dysfunction, ejection fraction less than 20-25%. -Diabetes mellitus type 2 -A.fib/flutter - continue supplemental oxygen to keep O2 sats > 90% - continue bronchodilators with pulmonary hygiene per RT - continue systemic steroids, taper quickly in view of heart failure - continue inhaled corticosteroids for COPD - continue VTE prophylaxis --Optimize heart failure measures -Home oxygen evaluation prior to discharge Out patient pulmonary follow up , to evaluate fro sleep apnea and need for PAP support at night. -Discharge planning Subjective Date of service: 12/18/18 Principal diagnosis: pneumonia Interval history: Patient is seen today for: Acute respiratory failure with hypoxia; Bilateral pneumonia; COPD (chronic obstructive pulmonary disease); CHF (congestive heart failure); Diabetes; Pleural effusion, bilateral; Pulmonary edema Seen and examined at bedside; 24hour events reviewed; nursing and respiratory care staff consulted; no adverse overnight events reported to me; Vitals, labs, medications, chart and imaging reviewed. Lying peacefully in bed, no vomiting, no diarrhea, no fevers, no chest pain, ongoing complains of fatigue and weakness. remains on supplemental oxygen Objective Vital Signs - 12hr 12/17/18 12/18/18 22:00 01:54 Temperature 97.6 F Pulse Rate 63 Pulse Rate [ 72 From Monitor] Respiratory 18 20 Rate Blood Pressure 119/59 O2 Sat by Pulse 100 100 Oximetry Constitutional: no acute distress, alert, other (on supplemental oxygen at 3L NC) Eyes: non-icteric ENT: oropharynx moist Neck: supple, no lymphadenopathy, no JVD Effort: normal Ascultation: Bilateral: diminished breath sounds Gastrointestinal: normoactive bowel sounds, soft, non-tender Integumentary: normal Extremities: no cyanosis, no edema Neurologic: normal mental status, non-focal exam, pupils equal and round Psychiatric: mood appropriate, affect normal CBC and BMP: 12/18/18 05:53 12/18/18 05:53 ABG, PT/INR, D-dimer: ABG POC ABG pH 7.415 (7.35-7.45) 12/08/18 10:07 POC ABG pCO2 37.1 (35-45) 12/08/18 10:07 POC ABG pO2 70 (80-105) L 12/08/18 10:07 POC ABG HCO3 23.8 (22-26 mml/L) 12/08/18 10:07 POC ABG Total CO2 25 (23-27mmol/L) 12/08/18 10:07 POC ABG O2 Sat 94 12/08/18 10:07 PT/INR, D-dimer PT 14.0 Sec. (12.2-14.9) 12/14/18 08:46 INR 1.11 (0.87-1.13) 12/14/18 08:46 Abnormal lab findings: Abnormal Labs 12/08/18 12/08/18 12/08/18 09:31 09:31 09:31 WBC 16.4 H RBC 3.32 L Hgb 9.7 L Hct 29.1 L RDW 15.6 H Plt Count Lymph % (Auto) 5.4 L Titus % (Auto) Lymph # 0.9 L Titus # 0.9 H Seg Neutrophils % 88.9 H Seg Neuts % (Manual) Lymphocytes % (Manual) Nucleated RBC % Seg Neutrophils # 14.6 H Seg Neutrophils # Man Lymphocytes # (Manual) PT INR POC ABG pO2 Sodium 132 L Potassium Chloride 96.1 L Carbon Dioxide BUN Creatinine 0.7 L Glucose 186 H POC Glucose Lactic Acid 2.50 H* Iron TIBC Total Creatine Kinase CK-MB (CK-2) NT-Pro-B Natriuret Pep Total Protein Albumin Vitamin B12 Vancomycin Trough 12/08/18 12/08/18 12/08/18 09:31 09:31 09:31 WBC RBC Hgb Hct RDW Plt Count Lymph % (Auto) Titus % (Auto) Lymph # Titus # Seg Neutrophils % Seg Neuts % (Manual) Lymphocytes % (Manual) Nucleated RBC % Seg Neutrophils # Seg Neutrophils # Man Lymphocytes # (Manual) PT 18.7 H INR 1.60 H POC ABG pO2 Sodium Potassium Chloride Carbon Dioxide BUN Creatinine Glucose POC Glucose Lactic Acid Iron TIBC Total Creatine Kinase 185 H CK-MB (CK-2) 4.1 H NT-Pro-B Natriuret Pep 4456 H Total Protein Albumin 3.7 L Vitamin B12 Vancomycin Trough 12/08/18 12/08/18 12/08/18 10:07 10:45 20:35 WBC RBC Hgb Hct RDW Plt Count Lymph % (Auto) Titus % (Auto) Lymph # Titus # Seg Neutrophils % Seg Neuts % (Manual) Lymphocytes % (Manual) Nucleated RBC % Seg Neutrophils # Seg Neutrophils # Man Lymphocytes # (Manual) PT INR POC ABG pO2 70 L Sodium Potassium Chloride Carbon Dioxide BUN Creatinine Glucose POC Glucose Lactic Acid 2.30 H* Iron 21 L TIBC 242 L Total Creatine Kinase CK-MB (CK-2) NT-Pro-B Natriuret Pep Total Protein Albumin Vitamin B12 Vancomycin Trough 12/08/18 12/09/18 12/09/18 20:35 06:54 06:54 WBC 12.2 H RBC 3.28 L Hgb 9.4 L Hct 28.9 L RDW 16.3 H Plt Count Lymph % (Auto) 12.0 L Titus % (Auto) 8.4 H Lymph # Titus # 1.0 H Seg Neutrophils % 77.7 H Seg Neuts % (Manual) Lymphocytes % (Manual) Nucleated RBC % Seg Neutrophils # 9.5 H Seg Neutrophils # Man Lymphocytes # (Manual) PT INR POC ABG pO2 Sodium 132 L Potassium Chloride 93.8 L Carbon Dioxide BUN 6 L Creatinine 0.5 L Glucose 107 H POC Glucose Lactic Acid Iron TIBC Total Creatine Kinase CK-MB (CK-2) NT-Pro-B Natriuret Pep Total Protein Albumin 3.6 L Vitamin B12 1587 H Vancomycin Trough 12/09/18 12/09/18 12/09/18 08:16 11:38 16:39 WBC RBC Hgb Hct RDW Plt Count Lymph % (Auto) Titus % (Auto) Lymph # Titus # Seg Neutrophils % Seg Neuts % (Manual) Lymphocytes % (Manual) Nucleated RBC % Seg Neutrophils # Seg Neutrophils # Man Lymphocytes # (Manual) PT INR POC ABG pO2 Sodium Potassium Chloride Carbon Dioxide BUN Creatinine Glucose POC Glucose 108 H 143 H 187 H Lactic Acid Iron TIBC Total Creatine Kinase CK-MB (CK-2) NT-Pro-B Natriuret Pep Total Protein Albumin Vitamin B12 Vancomycin Trough 12/09/18 12/10/18 12/10/18 22:26 07:48 11:28 WBC RBC Hgb Hct RDW Plt Count Lymph % (Auto) Titus % (Auto) Lymph # Titus # Seg Neutrophils % Seg Neuts % (Manual) Lymphocytes % (Manual) Nucleated RBC % Seg Neutrophils # Seg Neutrophils # Man Lymphocytes # (Manual) PT INR POC ABG pO2 Sodium Potassium Chloride Carbon Dioxide BUN Creatinine Glucose POC Glucose 244 H 197 H 267 H Lactic Acid Iron TIBC Total Creatine Kinase CK-MB (CK-2) NT-Pro-B Natriuret Pep Total Protein Albumin Vitamin B12 Vancomycin Trough 12/10/18 12/10/18 12/11/18 16:28 22:01 04:47 WBC 17.3 H RBC 3.41 L Hgb 9.8 L Hct 29.5 L RDW 16.0 H Plt Count 451 H Lymph % (Auto) Titus % (Auto) Lymph # Titus # Seg Neutrophils % Seg Neuts % (Manual) 93.0 H Lymphocytes % (Manual) 4.0 L Nucleated RBC % 1.0 H Seg Neutrophils # Seg Neutrophils # Man 16.1 H Lymphocytes # (Manual) 0.7 L PT INR POC ABG pO2 Sodium Potassium Chloride Carbon Dioxide BUN Creatinine Glucose POC Glucose 227 H 249 H Lactic Acid Iron TIBC Total Creatine Kinase CK-MB (CK-2) NT-Pro-B Natriuret Pep Total Protein Albumin Vitamin B12 Vancomycin Trough 12/11/18 12/11/18 12/11/18 04:47 07:24 11:34 WBC RBC Hgb Hct RDW Plt Count Lymph % (Auto) Titus % (Auto) Lymph # Titus # Seg Neutrophils % Seg Neuts % (Manual) Lymphocytes % (Manual) Nucleated RBC % Seg Neutrophils # Seg Neutrophils # Man Lymphocytes # (Manual) PT INR POC ABG pO2 Sodium 133 L Potassium Chloride 89.6 L Carbon Dioxide 31 H BUN Creatinine 0.6 L Glucose 218 H POC Glucose 206 H 206 H Lactic Acid Iron TIBC Total Creatine Kinase CK-MB (CK-2) NT-Pro-B Natriuret Pep Total Protein Albumin Vitamin B12 Vancomycin Trough 12/11/18 12/11/18 12/11/18 16:29 20:41 21:05 WBC RBC Hgb Hct RDW Plt Count Lymph % (Auto) Titus % (Auto) Lymph # Titus # Seg Neutrophils % Seg Neuts % (Manual) Lymphocytes % (Manual) Nucleated RBC % Seg Neutrophils # Seg Neutrophils # Man Lymphocytes # (Manual) PT INR POC ABG pO2 Sodium Potassium Chloride Carbon Dioxide BUN Creatinine Glucose POC Glucose 344 H 440 H Lactic Acid Iron TIBC Total Creatine Kinase CK-MB (CK-2) NT-Pro-B Natriuret Pep Total Protein Albumin Vitamin B12 Vancomycin Trough 21.1 H 12/12/18 12/12/18 12/12/18 07:33 12:22 16:47 WBC RBC Hgb Hct RDW Plt Count Lymph % (Auto) Titus % (Auto) Lymph # Titus # Seg Neutrophils % Seg Neuts % (Manual) Lymphocytes % (Manual) Nucleated RBC % Seg Neutrophils # Seg Neutrophils # Man Lymphocytes # (Manual) PT INR POC ABG pO2 Sodium Potassium Chloride Carbon Dioxide BUN Creatinine Glucose POC Glucose 200 H 324 H 290 H Lactic Acid Iron TIBC Total Creatine Kinase CK-MB (CK-2) NT-Pro-B Natriuret Pep Total Protein Albumin Vitamin B12 Vancomycin Trough 12/12/18 12/13/18 12/13/18 21:41 04:23 04:23 WBC 16.5 H RBC Hgb 11.6 L Hct 35.3 L RDW 16.4 H Plt Count 497 H Lymph % (Auto) 5.5 L Titus % (Auto) Lymph # 0.9 L Titus # 0.9 H Seg Neutrophils % 88.8 H Seg Neuts % (Manual) Lymphocytes % (Manual) Nucleated RBC % Seg Neutrophils # 14.7 H Seg Neutrophils # Man Lymphocytes # (Manual) PT INR POC ABG pO2 Sodium 128 L Potassium 5.3 H D Chloride 79.5 L Carbon Dioxide 35 H BUN Creatinine 0.6 L Glucose 268 H POC Glucose 327 H Lactic Acid Iron TIBC Total Creatine Kinase CK-MB (CK-2) NT-Pro-B Natriuret Pep Total Protein Albumin Vitamin B12 Vancomycin Trough 12/13/18 12/13/18 12/13/18 08:43 11:26 15:43 WBC RBC Hgb Hct RDW Plt Count Lymph % (Auto) Titus % (Auto) Lymph # Titus # Seg Neutrophils % Seg Neuts % (Manual) Lymphocytes % (Manual) Nucleated RBC % Seg Neutrophils # Seg Neutrophils # Man Lymphocytes # (Manual) PT INR POC ABG pO2 Sodium Potassium Chloride Carbon Dioxide BUN Creatinine Glucose POC Glucose 290 H 357 H 384 H Lactic Acid Iron TIBC Total Creatine Kinase CK-MB (CK-2) NT-Pro-B Natriuret Pep Total Protein Albumin Vitamin B12 Vancomycin Trough 12/13/18 12/14/18 12/14/18 21:56 07:40 08:46 WBC RBC Hgb Hct RDW Plt Count Lymph % (Auto) Titus % (Auto) Lymph # Titus # Seg Neutrophils % Seg Neuts % (Manual) Lymphocytes % (Manual) Nucleated RBC % Seg Neutrophils # Seg Neutrophils # Man Lymphocytes # (Manual) PT INR POC ABG pO2 Sodium 132 L Potassium Chloride 78.1 L Carbon Dioxide 43 H* D BUN Creatinine 0.7 L Glucose 213 H POC Glucose 320 H 223 H Lactic Acid Iron TIBC Total Creatine Kinase CK-MB (CK-2) NT-Pro-B Natriuret Pep Total Protein Albumin Vitamin B12 Vancomycin Trough 12/14/18 12/14/18 12/14/18 12:04 16:41 21:26 WBC RBC Hgb Hct RDW Plt Count Lymph % (Auto) Titus % (Auto) Lymph # Titus # Seg Neutrophils % Seg Neuts % (Manual) Lymphocytes % (Manual) Nucleated RBC % Seg Neutrophils # Seg Neutrophils # Man Lymphocytes # (Manual) PT INR POC ABG pO2 Sodium Potassium Chloride Carbon Dioxide BUN Creatinine Glucose POC Glucose 207 H 333 H 322 H Lactic Acid Iron TIBC Total Creatine Kinase CK-MB (CK-2) NT-Pro-B Natriuret Pep Total Protein Albumin Vitamin B12 Vancomycin Trough 12/15/18 12/15/18 12/15/18 06:10 07:29 10:43 WBC RBC Hgb Hct RDW Plt Count Lymph % (Auto) Titus % (Auto) Lymph # Titus # Seg Neutrophils % Seg Neuts % (Manual) Lymphocytes % (Manual) Nucleated RBC % Seg Neutrophils # Seg Neutrophils # Man Lymphocytes # (Manual) PT INR POC ABG pO2 Sodium Potassium Chloride Carbon Dioxide BUN Creatinine Glucose POC Glucose 133 H 141 H 138 H Lactic Acid Iron TIBC Total Creatine Kinase CK-MB (CK-2) NT-Pro-B Natriuret Pep Total Protein Albumin Vitamin B12 Vancomycin Trough 12/15/18 12/15/18 12/15/18 16:05 19:11 21:11 WBC RBC Hgb Hct RDW Plt Count Lymph % (Auto) Titus % (Auto) Lymph # Titus # Seg Neutrophils % Seg Neuts % (Manual) Lymphocytes % (Manual) Nucleated RBC % Seg Neutrophils # Seg Neutrophils # Man Lymphocytes # (Manual) PT INR POC ABG pO2 Sodium Potassium Chloride Carbon Dioxide BUN Creatinine Glucose POC Glucose 147 H 284 H 312 H Lactic Acid Iron TIBC Total Creatine Kinase CK-MB (CK-2) NT-Pro-B Natriuret Pep Total Protein Albumin Vitamin B12 Vancomycin Trough 12/16/18 12/16/18 12/16/18 07:36 11:41 16:48 WBC RBC Hgb Hct RDW Plt Count Lymph % (Auto) Titus % (Auto) Lymph # Titus # Seg Neutrophils % Seg Neuts % (Manual) Lymphocytes % (Manual) Nucleated RBC % Seg Neutrophils # Seg Neutrophils # Man Lymphocytes # (Manual) PT INR POC ABG pO2 Sodium Potassium Chloride Carbon Dioxide BUN Creatinine Glucose POC Glucose 293 H 323 H 367 H Lactic Acid Iron TIBC Total Creatine Kinase CK-MB (CK-2) NT-Pro-B Natriuret Pep Total Protein Albumin Vitamin B12 Vancomycin Trough 12/16/18 12/17/18 12/17/18 21:47 06:40 07:37 WBC RBC Hgb Hct RDW Plt Count Lymph % (Auto) Titus % (Auto) Lymph # Titus # Seg Neutrophils % Seg Neuts % (Manual) Lymphocytes % (Manual) Nucleated RBC % Seg Neutrophils # Seg Neutrophils # Man Lymphocytes # (Manual) PT INR POC ABG pO2 Sodium Potassium Chloride Carbon Dioxide BUN Creatinine Glucose POC Glucose 239 H 317 H 346 H Lactic Acid Iron TIBC Total Creatine Kinase CK-MB (CK-2) NT-Pro-B Natriuret Pep Total Protein Albumin Vitamin B12 Vancomycin Trough 12/17/18 12/17/18 12/17/18 11:47 16:22 21:11 WBC RBC Hgb Hct RDW Plt Count Lymph % (Auto) Titus % (Auto) Lymph # Titus # Seg Neutrophils % Seg Neuts % (Manual) Lymphocytes % (Manual) Nucleated RBC % Seg Neutrophils # Seg Neutrophils # Man Lymphocytes # (Manual) PT INR POC ABG pO2 Sodium Potassium Chloride Carbon Dioxide BUN Creatinine Glucose POC Glucose 293 H 276 H 307 H Lactic Acid Iron TIBC Total Creatine Kinase CK-MB (CK-2) NT-Pro-B Natriuret Pep Total Protein Albumin Vitamin B12 Vancomycin Trough 12/18/18 12/18/18 12/18/18 05:53 05:53 07:48 WBC 17.0 H RBC Hgb Hct RDW 16.9 H Plt Count Lymph % (Auto) 6.2 L Titus % (Auto) Lymph # 1.1 L Titus # Seg Neutrophils % 89.9 H Seg Neuts % (Manual) Lymphocytes % (Manual) Nucleated RBC % Seg Neutrophils # 15.3 H Seg Neutrophils # Man Lymphocytes # (Manual) PT INR POC ABG pO2 Sodium 131 L Potassium Chloride 86.5 L Carbon Dioxide 38 H BUN Creatinine 0.6 L Glucose 261 H POC Glucose 247 H Lactic Acid Iron TIBC Total Creatine Kinase CK-MB (CK-2) NT-Pro-B Natriuret Pep Total Protein 6.1 L Albumin 3.4 L Vitamin B12 Vancomycin Trough Chest x-ray: image reviewed (CXR 12/17- improved effusions) Additional Studies: Echocardiogram 10/09/18 shows left ventricular ejection fraction 45%, mild mitral stenosis, 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 Right and left heart catheterization this admission: Normal right and left heart filling pressures, no significant pulmonary hypertension. No significant obstructive coronary artery disease. Dilated nonischemic cardiomyopathy, severe left ventricle systolic dysfunction, ejection fraction less than 20-25%.
[2018-12-18] MEDS: PEPCID PO SCH ×2 (10:27→21:00)
[2018-12-18] MEDS: ZESTRIL PO SCH (10:27)
[2018-12-18] MEDS: MIRALAX 3350 PO SCH (10:27)
[2018-12-18] MEDS: SOLU-Medrol IV SCH ×2 (10:27→21:00)
[2018-12-18] MEDS: HALFPRIN EC PO SCH (10:27)
[2018-12-18] MEDS: VITAMIN C PO SCH (10:27)
[2018-12-18] MEDS: SODIUM CHLORIDE FLUSH SYRINGE 10 ML IV SCH ×2 (10:29→21:01)
[2018-12-18] MEDS: LASIX PO SCH (10:29)
[2018-12-18] MEDS: ALDACTONE PO SCH (10:30)
[2018-12-18] MEDS: COREG PO SCH ×2 (10:31→21:04)
[2018-12-18] MEDS: HEMOCYTE PLUS PO SCH (10:32)
[2018-12-18] MEDS: ELIQUIS PO SCH ×2 (10:54→21:00)
[2018-12-18] MEDS: DUONEB *Not for PRN Use IH SCH ×3 (12:43→20:18)
--- NOTE | 2018-12-18 16:01 | Progress Note ---
Assessment and Plan Acute hypoxic respiratory failure, COPD exacerbation sp steroids, now dc, duo nebs, nebulizer treatments, oxygen support, continue antibiotics Bilateral pleural effusion Chest ultrasound was done improved DM2 with persistent hyperglycemia -a1c is 5.4, so high glc is due to steroids dc steroids, was bolused with insulin. cont ssi Sepsis secondary to Bilateral pneumonia completed abx For d/c tomorrow History of PE - Continue eliquis Paroxysmal atrial flutter - Controlled, continue eliquis, Cardiomyopathy, chronic systolic CHF with acute exacerbation - Patient is on IV Lasix, HadRight and left cath - Cardiology consulted and recommend to continue diurese the patient and right and left heart cath on Friday DVT prophylaxis Disposition;Home PT consult ordered Subjective Date of service: 12/18/18 Principal diagnosis: pneumonia Interval history: This is an 78-year old male with multiple medical problems. 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 Patient is on home O2. He also has paroxysmal atrial flutter, a history of bilateral PE, on Eliquis for oral anticoagulation. Patient presents with shortness of breath, coughs, leukocytosis, admitted with COPD exacerbation, Pneumonia and decompensated heart failure. Objective - Constitutional Vitals: Vital Signs - 12hr 12/18/18 12/18/18 12/18/18 10:00 10:27 10:30 Pulse Rate 69 69 Pulse Rate [ Anterior Bilateral Throughout] Pulse Rate [ 66 From Monitor] Respiratory 20 Rate Respiratory Rate [Anterior Bilateral Throughout] Blood Pressure 122/57 122/57 O2 Sat by Pulse 100 Oximetry 12/18/18 12/18/18 12/18/18 10:31 14:00 14:12 Pulse Rate 69 Pulse Rate [ 72 78 Anterior Bilateral Throughout] Pulse Rate [ From Monitor] Respiratory Rate Respiratory 18 18 Rate [Anterior Bilateral Throughout] Blood Pressure 122/57 O2 Sat by Pulse Oximetry General appearance: Present: no acute distress, well-nourished - EENT Eyes: PERRL, EOM intact ENT: hearing intact, clear oral mucosa Ears: bilateral: normal - Neck Neck: supple, normal ROM - Respiratory Respiratory effort: normal Respiratory: bilateral: CTA - Breasts Breasts: normal - Cardiovascular Heart rate: 78 Rhythm: regular Heart Sounds: Present: S1 & S2. Absent: gallop, rub Extremities: no ischemia, pulses intact, No edema, normal color, Full ROM - Gastrointestinal General gastrointestinal: Present: soft, non-tender, non-distended, normal bowel sounds - Genitourinary Male genitourinary: normal - Integumentary Integumentary: clear, warm, dry - Musculoskeletal Musculoskeletal: 1, strength equal bilaterally - Neurologic Neurologic: moves all extremities - Psychiatric Psychiatric: memory intact, appropriate mood/affect, intact judgment & insight - Labs CBC & Chem 7: 12/18/18 05:53 12/18/18 05:53 Labs: Abnormal lab results 12/17/18 12/17/18 12/18/18 Range/Units 16:22 21:11 05:53 WBC 17.0 H (4.5-11.0) K/mm3 RDW 16.9 H (13.2-15.2) % Lymph % (Auto) 6.2 L (13.4-35.0) % Lymph # 1.1 L (1.2-5.4) K/mm3 Seg Neutrophils % 89.9 H (40.0-70.0) % Seg Neutrophils # 15.3 H (1.8-7.7) K/mm3 Sodium (137-145) mmol/L Chloride (98-107) mmol/L Carbon Dioxide (22-30) mmol/L Creatinine (0.8-1.5) mg/dL Glucose (75-100) mg/dL POC Glucose 276 H 307 H (70-105) Total Protein (6.3-8.2) g/dL Albumin (3.9-5) g/dL 12/18/18 12/18/18 12/18/18 Range/Units 05:53 07:48 11:39 WBC (4.5-11.0) K/mm3 RDW (13.2-15.2) % Lymph % (Auto) (13.4-35.0) % Lymph # (1.2-5.4) K/mm3 Seg Neutrophils % (40.0-70.0) % Seg Neutrophils # (1.8-7.7) K/mm3 Sodium 131 L (137-145) mmol/L Chloride 86.5 L (98-107) mmol/L Carbon Dioxide 38 H (22-30) mmol/L Creatinine 0.6 L (0.8-1.5) mg/dL Glucose 261 H (75-100) mg/dL POC Glucose 247 H 296 H (70-105) Total Protein 6.1 L (6.3-8.2) g/dL Albumin 3.4 L (3.9-5) g/dL
--- NOTE | 2018-12-18 16:29 | Discharge Summary ---
Providers - Providers Date of Admission: 12/08/18 12:32 Date of discharge: 12/18/18 Attending physician: SUNNI MACK 12/08/18 Consult to Case Management [CONS] Routine Services Needed at Discharge: Home Health Services Notified:: ARELI 12/08/18 20:05 Consult to Physician [CONS] Routine Comment: Consulting Provider: ANDREW [place] Physician Instructions: Reason For Exam: COPD exacerbation 12/09/18 08:04 Consult to Physician [CONS] Routine Comment: JULIEN Consulting Provider: KEVIN JOYNER Physician Instructions: WAS NOTIFIED Reason For Exam: bilateral pneumonia 12/10/18 10:03 Physical Therapy Evaluation and Treat [CONS] Routine Comment: Reason For Exam: weakness, debility 12/10/18 10:04 Occupational Therapy Evaluate and Treat [CONS] Routine Comment: Reason For Exam: Debility, needs help with ADLS 12/15/18 14:51 Consult to Cardiac Rehabilitation [CONS] Routine Reason For Exam: Cardiac Rehab Evaluation Additional Notes/Special Instructions: called cardiac rehab/ darrell Primary care physician: DARRELL QUINONES MD Hospitalization Condition: Stable Hospital course: Acute hypoxic respiratory failure, COPD exacerbation sp steroids, now dc, duo nebs, nebulizer treatments, oxygen support, continue antibiotics Bilateral pleural effusion Chest ultrasound was done improved Cont Neb treatments at home DM2 with persistent hyperglycemia -a1c is 5.4, so high glc is due to steroids dc steroids, was bolused with insulin. cont ssi Sepsis secondary to Bilateral pneumonia completed abx For d/c today History of PE - Continue eliquis Paroxysmal atrial flutter - Controlled, continue eliquis, Cardiomyopathy, chronic systolic CHF with acute exacerbation - Patient is on IV Lasix, HadRight and left cath Cardiology consulted and recommend to continue diuressis Disposition: DC-01 TO HOME OR SELFCARE Core Measure Documentation - Palliative Care Palliative Care/ Comfort Measures: Not Applicable - Core Measures Any of the following diagnoses?: none Exam - Constitutional Vitals: Temp Pulse Resp BP Pulse Ox 97.6 F 78 18 122/57 100 12/18/18 01:54 12/18/18 14:12 12/18/18 14:12 12/18/18 10:31 12/18/18 10:00 General appearance: Present: no acute distress, well-nourished - EENT Eyes: Present: PERRL ENT: hearing intact, clear oral mucosa - Neck Neck: Present: supple, normal ROM - Respiratory Respiratory effort: normal Respiratory: bilateral: CTA - Cardiovascular Heart Sounds: Present: S1 & S2. Absent: rub, click - Extremities Extremities: pulses symmetrical, No edema Peripheral Pulses: within normal limits - Abdominal General gastrointestinal: Present: soft, non-tender, non-distended, normal bowel sounds Male genitourinary: Present: normal - Integumentary Integumentary: Present: clear, warm, dry - Musculoskeletal Musculoskeletal: gait normal, strength equal bilaterally - Psychiatric Psychiatric: appropriate mood/affect, intact judgment & insight - Neurologic Neurologic: CNII-XII intact, moves all extremities Plan Activity: no restrictions Diet: low fat, low cholesterol, low salt Durable Medical Equipment Needed Upon Discharge: Walker-Standard Follow up with: PRIMARY CAREMD [Referring] - 3-5 Days COURTNEY RUIZ MD [Staff Physician] - 7 Days
[2018-12-19] MEDS: AMARYL PO SCH (08:28)
[2018-12-19] MEDS: HumaLOG SUB-Q SCH ×2 (08:29→11:47)
[2018-12-19] MEDS: DUONEB *Not for PRN Use IH SCH ×2 (08:38→14:09)
[2018-12-19] MEDS: PEPCID PO SCH (10:17)
[2018-12-19] MEDS: COREG PO SCH (10:17)
[2018-12-19] MEDS: MIRALAX 3350 PO SCH (10:17)
[2018-12-19] MEDS: ZESTRIL PO SCH (10:18)
[2018-12-19] MEDS: LASIX PO SCH (10:18)
[2018-12-19] MEDS: HEMOCYTE PLUS PO SCH (10:20)
[2018-12-19] MEDS: HALFPRIN EC PO SCH (10:20)
[2018-12-19] MEDS: ELIQUIS PO SCH (10:20)
[2018-12-19 10:21] VITALS: BP 126/47
[2018-12-19] MEDS: SODIUM CHLORIDE FLUSH SYRINGE 10 ML IV SCH (10:21)
[2018-12-19] MEDS: VITAMIN C PO SCH (10:22)
[2018-12-19] MEDS: ALDACTONE PO SCH (10:29)
[2018-12-19] MEDS: SOLU-Medrol IV SCH (10:29)
[2018-12-19] MEDS: IBUPROFEN PO PRN (11:37)
--- NOTE | 2018-12-19 11:39 | Progress Note ---
Assessment and Plan Acute respiratory failure with hypoxia Bilateral pneumonia COPD (chronic obstructive pulmonary disease) CHF (congestive heart failure) Diabetes Pleural effusion, bilateral Pulmonary edema - continue supplemental oxygen to keep O2 sats > 90% - continue bronchodilators with pulmonary hygiene per RT - continue systemic steroids with slow taper - continue inhaled corticosteroids for COPD - complete empiric CAP AB's therapy - continue GI & VTE prophylaxis - continue to optimize heart failure measures per cardiology team - Home oxygen evaluation prior to discharge - Out patient pulmonary / sleep clinic follow up post discharge .... re-evaluate in am & prn Subjective Date of service: 12/19/18 Principal diagnosis: Ac hypoxemic resp failure; Gera PNA; AE-COPD; CHF; Pleural effusion Interval history: Patient is seen today for: Acute respiratory failure with hypoxia; Bilateral pneumonia; COPD (chronic obstructive pulmonary disease); CHF (congestive heart failure); Diabetes; Pleural effusion, bilateral; Pulmonary edema Seen and examined at bedside; 24hour events reviewed; nursing and respiratory care staff consulted; no adverse overnight events reported to me; resting peace fully in bed; Objective Vital Signs - 12hr 12/19/18 12/19/18 12/19/18 01:48 07:23 08:37 Temperature 97.6 F 97.4 F L Pulse Rate 61 63 Pulse Rate [ Anterior Bilateral Throughout] Respiratory 22 18 Rate Respiratory Rate [Anterior Bilateral Throughout] Blood Pressure 123/58 128/62 O2 Sat by Pulse 96 100 99 Oximetry 12/19/18 12/19/18 12/19/18 08:38 10:17 10:18 Temperature Pulse Rate 65 65 Pulse Rate [ 76 Anterior Bilateral Throughout] Respiratory Rate Respiratory 16 Rate [Anterior Bilateral Throughout] Blood Pressure 126/47 126/47 O2 Sat by Pulse Oximetry 12/19/18 12/19/18 10:29 11:37 Temperature Pulse Rate 65 Pulse Rate [ Anterior Bilateral Throughout] Respiratory 17 Rate Respiratory Rate [Anterior Bilateral Throughout] Blood Pressure 126/47 O2 Sat by Pulse Oximetry Constitutional: no acute distress, alert Eyes: non-icteric ENT: oropharynx moist Neck: supple, no lymphadenopathy, no JVD Effort: normal Ascultation: Bilateral: diminished breath sounds Cardiovascular: regular rate and rhythm Gastrointestinal: normoactive bowel sounds, soft, non-tender Integumentary: normal Extremities: no cyanosis, no edema Neurologic: normal mental status, non-focal exam, pupils equal and round Psychiatric: mood appropriate, affect normal CBC and BMP: 12/18/18 05:53 12/18/18 05:53 ABG, PT/INR, D-dimer: ABG POC ABG pH 7.415 (7.35-7.45) 12/08/18 10:07 POC ABG pCO2 37.1 (35-45) 12/08/18 10:07 POC ABG pO2 70 (80-105) L 12/08/18 10:07 POC ABG HCO3 23.8 (22-26 mml/L) 12/08/18 10:07 POC ABG Total CO2 25 (23-27mmol/L) 12/08/18 10:07 POC ABG O2 Sat 94 12/08/18 10:07 PT/INR, D-dimer PT 14.0 Sec. (12.2-14.9) 12/14/18 08:46 INR 1.11 (0.87-1.13) 12/14/18 08:46 Abnormal lab findings: Abnormal Labs 12/08/18 12/08/18 12/08/18 09:31 09:31 09:31 WBC 16.4 H RBC 3.32 L Hgb 9.7 L Hct 29.1 L RDW 15.6 H Plt Count Lymph % (Auto) 5.4 L Shannon % (Auto) Lymph # 0.9 L Shannon # 0.9 H Seg Neutrophils % 88.9 H Seg Neuts % (Manual) Lymphocytes % (Manual) Nucleated RBC % Seg Neutrophils # 14.6 H Seg Neutrophils # Man Lymphocytes # (Manual) PT INR POC ABG pO2 Sodium 132 L Potassium Chloride 96.1 L Carbon Dioxide BUN Creatinine 0.7 L Glucose 186 H POC Glucose Lactic Acid 2.50 H* Iron TIBC Total Creatine Kinase CK-MB (CK-2) NT-Pro-B Natriuret Pep Total Protein Albumin Vitamin B12 Vancomycin Trough 12/08/18 12/08/18 12/08/18 09:31 09:31 09:31 WBC RBC Hgb Hct RDW Plt Count Lymph % (Auto) Shannon % (Auto) Lymph # Shannon # Seg Neutrophils % Seg Neuts % (Manual) Lymphocytes % (Manual) Nucleated RBC % Seg Neutrophils # Seg Neutrophils # Man Lymphocytes # (Manual) PT 18.7 H INR 1.60 H POC ABG pO2 Sodium Potassium Chloride Carbon Dioxide BUN Creatinine Glucose POC Glucose Lactic Acid Iron TIBC Total Creatine Kinase 185 H CK-MB (CK-2) 4.1 H NT-Pro-B Natriuret Pep 4456 H Total Protein Albumin 3.7 L Vitamin B12 Vancomycin Trough 12/08/18 12/08/18 12/08/18 10:07 10:45 20:35 WBC RBC Hgb Hct RDW Plt Count Lymph % (Auto) Shannon % (Auto) Lymph # Shannon # Seg Neutrophils % Seg Neuts % (Manual) Lymphocytes % (Manual) Nucleated RBC % Seg Neutrophils # Seg Neutrophils # Man Lymphocytes # (Manual) PT INR POC ABG pO2 70 L Sodium Potassium Chloride Carbon Dioxide BUN Creatinine Glucose POC Glucose Lactic Acid 2.30 H* Iron 21 L TIBC 242 L Total Creatine Kinase CK-MB (CK-2) NT-Pro-B Natriuret Pep Total Protein Albumin Vitamin B12 Vancomycin Trough 12/08/18 12/09/18 12/09/18 20:35 06:54 06:54 WBC 12.2 H RBC 3.28 L Hgb 9.4 L Hct 28.9 L RDW 16.3 H Plt Count Lymph % (Auto) 12.0 L Shannon % (Auto) 8.4 H Lymph # Shannon # 1.0 H Seg Neutrophils % 77.7 H Seg Neuts % (Manual) Lymphocytes % (Manual) Nucleated RBC % Seg Neutrophils # 9.5 H Seg Neutrophils # Man Lymphocytes # (Manual) PT INR POC ABG pO2 Sodium 132 L Potassium Chloride 93.8 L Carbon Dioxide BUN 6 L Creatinine 0.5 L Glucose 107 H POC Glucose Lactic Acid Iron TIBC Total Creatine Kinase CK-MB (CK-2) NT-Pro-B Natriuret Pep Total Protein Albumin 3.6 L Vitamin B12 1587 H Vancomycin Trough 12/09/18 12/09/18 12/09/18 08:16 11:38 16:39 WBC RBC Hgb Hct RDW Plt Count Lymph % (Auto) Shannon % (Auto) Lymph # Shannon # Seg Neutrophils % Seg Neuts % (Manual) Lymphocytes % (Manual) Nucleated RBC % Seg Neutrophils # Seg Neutrophils # Man Lymphocytes # (Manual) PT INR POC ABG pO2 Sodium Potassium Chloride Carbon Dioxide BUN Creatinine Glucose POC Glucose 108 H 143 H 187 H Lactic Acid Iron TIBC Total Creatine Kinase CK-MB (CK-2) NT-Pro-B Natriuret Pep Total Protein Albumin Vitamin B12 Vancomycin Trough 12/09/18 12/10/18 12/10/18 22:26 07:48 11:28 WBC RBC Hgb Hct RDW Plt Count Lymph % (Auto) Shannon % (Auto) Lymph # Shannon # Seg Neutrophils % Seg Neuts % (Manual) Lymphocytes % (Manual) Nucleated RBC % Seg Neutrophils # Seg Neutrophils # Man Lymphocytes # (Manual) PT INR POC ABG pO2 Sodium Potassium Chloride Carbon Dioxide BUN Creatinine Glucose POC Glucose 244 H 197 H 267 H Lactic Acid Iron TIBC Total Creatine Kinase CK-MB (CK-2) NT-Pro-B Natriuret Pep Total Protein Albumin Vitamin B12 Vancomycin Trough 12/10/18 12/10/18 12/11/18 16:28 22:01 04:47 WBC 17.3 H RBC 3.41 L Hgb 9.8 L Hct 29.5 L RDW 16.0 H Plt Count 451 H Lymph % (Auto) Shannon % (Auto) Lymph # Shannon # Seg Neutrophils % Seg Neuts % (Manual) 93.0 H Lymphocytes % (Manual) 4.0 L Nucleated RBC % 1.0 H Seg Neutrophils # Seg Neutrophils # Man 16.1 H Lymphocytes # (Manual) 0.7 L PT INR POC ABG pO2 Sodium Potassium Chloride Carbon Dioxide BUN Creatinine Glucose POC Glucose 227 H 249 H Lactic Acid Iron TIBC Total Creatine Kinase CK-MB (CK-2) NT-Pro-B Natriuret Pep Total Protein Albumin Vitamin B12 Vancomycin Trough 12/11/18 12/11/18 12/11/18 04:47 07:24 11:34 WBC RBC Hgb Hct RDW Plt Count Lymph % (Auto) Shannon % (Auto) Lymph # Shannon # Seg Neutrophils % Seg Neuts % (Manual) Lymphocytes % (Manual) Nucleated RBC % Seg Neutrophils # Seg Neutrophils # Man Lymphocytes # (Manual) PT INR POC ABG pO2 Sodium 133 L Potassium Chloride 89.6 L Carbon Dioxide 31 H BUN Creatinine 0.6 L Glucose 218 H POC Glucose 206 H 206 H Lactic Acid Iron TIBC Total Creatine Kinase CK-MB (CK-2) NT-Pro-B Natriuret Pep Total Protein Albumin Vitamin B12 Vancomycin Trough 12/11/18 12/11/18 12/11/18 16:29 20:41 21:05 WBC RBC Hgb Hct RDW Plt Count Lymph % (Auto) Shannon % (Auto) Lymph # Shannon # Seg Neutrophils % Seg Neuts % (Manual) Lymphocytes % (Manual) Nucleated RBC % Seg Neutrophils # Seg Neutrophils # Man Lymphocytes # (Manual) PT INR POC ABG pO2 Sodium Potassium Chloride Carbon Dioxide BUN Creatinine Glucose POC Glucose 344 H 440 H Lactic Acid Iron TIBC Total Creatine Kinase CK-MB (CK-2) NT-Pro-B Natriuret Pep Total Protein Albumin Vitamin B12 Vancomycin Trough 21.1 H 12/12/18 12/12/18 12/12/18 07:33 12:22 16:47 WBC RBC Hgb Hct RDW Plt Count Lymph % (Auto) Shannon % (Auto) Lymph # Shannon # Seg Neutrophils % Seg Neuts % (Manual) Lymphocytes % (Manual) Nucleated RBC % Seg Neutrophils # Seg Neutrophils # Man Lymphocytes # (Manual) PT INR POC ABG pO2 Sodium Potassium Chloride Carbon Dioxide BUN Creatinine Glucose POC Glucose 200 H 324 H 290 H Lactic Acid Iron TIBC Total Creatine Kinase CK-MB (CK-2) NT-Pro-B Natriuret Pep Total Protein Albumin Vitamin B12 Vancomycin Trough 12/12/18 12/13/18 12/13/18 21:41 04:23 04:23 WBC 16.5 H RBC Hgb 11.6 L Hct 35.3 L RDW 16.4 H Plt Count 497 H Lymph % (Auto) 5.5 L Shannon % (Auto) Lymph # 0.9 L Shannon # 0.9 H Seg Neutrophils % 88.8 H Seg Neuts % (Manual) Lymphocytes % (Manual) Nucleated RBC % Seg Neutrophils # 14.7 H Seg Neutrophils # Man Lymphocytes # (Manual) PT INR POC ABG pO2 Sodium 128 L Potassium 5.3 H D Chloride 79.5 L Carbon Dioxide 35 H BUN Creatinine 0.6 L Glucose 268 H POC Glucose 327 H Lactic Acid Iron TIBC Total Creatine Kinase CK-MB (CK-2) NT-Pro-B Natriuret Pep Total Protein Albumin Vitamin B12 Vancomycin Trough 12/13/18 12/13/18 12/13/18 08:43 11:26 15:43 WBC RBC Hgb Hct RDW Plt Count Lymph % (Auto) Shannon % (Auto) Lymph # Shannon # Seg Neutrophils % Seg Neuts % (Manual) Lymphocytes % (Manual) Nucleated RBC % Seg Neutrophils # Seg Neutrophils # Man Lymphocytes # (Manual) PT INR POC ABG pO2 Sodium Potassium Chloride Carbon Dioxide BUN Creatinine Glucose POC Glucose 290 H 357 H 384 H Lactic Acid Iron TIBC Total Creatine Kinase CK-MB (CK-2) NT-Pro-B Natriuret Pep Total Protein Albumin Vitamin B12 Vancomycin Trough 12/13/18 12/14/18 12/14/18 21:56 07:40 08:46 WBC RBC Hgb Hct RDW Plt Count Lymph % (Auto) Shannon % (Auto) Lymph # Shannon # Seg Neutrophils % Seg Neuts % (Manual) Lymphocytes % (Manual) Nucleated RBC % Seg Neutrophils # Seg Neutrophils # Man Lymphocytes # (Manual) PT INR POC ABG pO2 Sodium 132 L Potassium Chloride 78.1 L Carbon Dioxide 43 H* D BUN Creatinine 0.7 L Glucose 213 H POC Glucose 320 H 223 H Lactic Acid Iron TIBC Total Creatine Kinase CK-MB (CK-2) NT-Pro-B Natriuret Pep Total Protein Albumin Vitamin B12 Vancomycin Trough 12/14/18 12/14/18 12/14/18 12:04 16:41 21:26 WBC RBC Hgb Hct RDW Plt Count Lymph % (Auto) Shannon % (Auto) Lymph # Shannon # Seg Neutrophils % Seg Neuts % (Manual) Lymphocytes % (Manual) Nucleated RBC % Seg Neutrophils # Seg Neutrophils # Man Lymphocytes # (Manual) PT INR POC ABG pO2 Sodium Potassium Chloride Carbon Dioxide BUN Creatinine Glucose POC Glucose 207 H 333 H 322 H Lactic Acid Iron TIBC Total Creatine Kinase CK-MB (CK-2) NT-Pro-B Natriuret Pep Total Protein Albumin Vitamin B12 Vancomycin Trough 12/15/18 12/15/18 12/15/18 06:10 07:29 10:43 WBC RBC Hgb Hct RDW Plt Count Lymph % (Auto) Shannon % (Auto) Lymph # Shannon # Seg Neutrophils % Seg Neuts % (Manual) Lymphocytes % (Manual) Nucleated RBC % Seg Neutrophils # Seg Neutrophils # Man Lymphocytes # (Manual) PT INR POC ABG pO2 Sodium Potassium Chloride Carbon Dioxide BUN Creatinine Glucose POC Glucose 133 H 141 H 138 H Lactic Acid Iron TIBC Total Creatine Kinase CK-MB (CK-2) NT-Pro-B Natriuret Pep Total Protein Albumin Vitamin B12 Vancomycin Trough 12/15/18 12/15/18 12/15/18 16:05 19:11 21:11 WBC RBC Hgb Hct RDW Plt Count Lymph % (Auto) Shannon % (Auto) Lymph # Shannon # Seg Neutrophils % Seg Neuts % (Manual) Lymphocytes % (Manual) Nucleated RBC % Seg Neutrophils # Seg Neutrophils # Man Lymphocytes # (Manual) PT INR POC ABG pO2 Sodium Potassium Chloride Carbon Dioxide BUN Creatinine Glucose POC Glucose 147 H 284 H 312 H Lactic Acid Iron TIBC Total Creatine Kinase CK-MB (CK-2) NT-Pro-B Natriuret Pep Total Protein Albumin Vitamin B12 Vancomycin Trough 12/16/18 12/16/18 12/16/18 07:36 11:41 16:48 WBC RBC Hgb Hct RDW Plt Count Lymph % (Auto) Shannon % (Auto) Lymph # Shannon # Seg Neutrophils % Seg Neuts % (Manual) Lymphocytes % (Manual) Nucleated RBC % Seg Neutrophils # Seg Neutrophils # Man Lymphocytes # (Manual) PT INR POC ABG pO2 Sodium Potassium Chloride Carbon Dioxide BUN Creatinine Glucose POC Glucose 293 H 323 H 367 H Lactic Acid Iron TIBC Total Creatine Kinase CK-MB (CK-2) NT-Pro-B Natriuret Pep Total Protein Albumin Vitamin B12 Vancomycin Trough 12/16/18 12/17/18 12/17/18 21:47 06:40 07:37 WBC RBC Hgb Hct RDW Plt Count Lymph % (Auto) Shannon % (Auto) Lymph # Shannon # Seg Neutrophils % Seg Neuts % (Manual) Lymphocytes % (Manual) Nucleated RBC % Seg Neutrophils # Seg Neutrophils # Man Lymphocytes # (Manual) PT INR POC ABG pO2 Sodium Potassium Chloride Carbon Dioxide BUN Creatinine Glucose POC Glucose 239 H 317 H 346 H Lactic Acid Iron TIBC Total Creatine Kinase CK-MB (CK-2) NT-Pro-B Natriuret Pep Total Protein Albumin Vitamin B12 Vancomycin Trough 12/17/18 12/17/18 12/17/18 11:47 16:22 21:11 WBC RBC Hgb Hct RDW Plt Count Lymph % (Auto) Shannon % (Auto) Lymph # Shannon # Seg Neutrophils % Seg Neuts % (Manual) Lymphocytes % (Manual) Nucleated RBC % Seg Neutrophils # Seg Neutrophils # Man Lymphocytes # (Manual) PT INR POC ABG pO2 Sodium Potassium Chloride Carbon Dioxide BUN Creatinine Glucose POC Glucose 293 H 276 H 307 H Lactic Acid Iron TIBC Total Creatine Kinase CK-MB (CK-2) NT-Pro-B Natriuret Pep Total Protein Albumin Vitamin B12 Vancomycin Trough 12/18/18 12/18/18 12/18/18 05:53 05:53 07:48 WBC 17.0 H RBC Hgb Hct RDW 16.9 H Plt Count Lymph % (Auto) 6.2 L Shannon % (Auto) Lymph # 1.1 L Shannon # Seg Neutrophils % 89.9 H Seg Neuts % (Manual) Lymphocytes % (Manual) Nucleated RBC % Seg Neutrophils # 15.3 H Seg Neutrophils # Man Lymphocytes # (Manual) PT INR POC ABG pO2 Sodium 131 L Potassium Chloride 86.5 L Carbon Dioxide 38 H BUN Creatinine 0.6 L Glucose 261 H POC Glucose 247 H Lactic Acid Iron TIBC Total Creatine Kinase CK-MB (CK-2) NT-Pro-B Natriuret Pep Total Protein 6.1 L Albumin 3.4 L Vitamin B12 Vancomycin Trough 12/18/18 12/18/18 12/18/18 11:39 16:42 21:17 WBC RBC Hgb Hct RDW Plt Count Lymph % (Auto) Shannon % (Auto) Lymph # Shannon # Seg Neutrophils % Seg Neuts % (Manual) Lymphocytes % (Manual) Nucleated RBC % Seg Neutrophils # Seg Neutrophils # Man Lymphocytes # (Manual) PT INR POC ABG pO2 Sodium Potassium Chloride Carbon Dioxide BUN Creatinine Glucose POC Glucose 296 H 308 H 393 H Lactic Acid Iron TIBC Total Creatine Kinase CK-MB (CK-2) NT-Pro-B Natriuret Pep Total Protein Albumin Vitamin B12 Vancomycin Trough 12/19/18 07:29 WBC RBC Hgb Hct RDW Plt Count Lymph % (Auto) Shannon % (Auto) Lymph # Shannon # Seg Neutrophils % Seg Neuts % (Manual) Lymphocytes % (Manual) Nucleated RBC % Seg Neutrophils # Seg Neutrophils # Man Lymphocytes # (Manual) PT INR POC ABG pO2 Sodium Potassium Chloride Carbon Dioxide BUN Creatinine Glucose POC Glucose 228 H Lactic Acid Iron TIBC Total Creatine Kinase CK-MB (CK-2) NT-Pro-B Natriuret Pep Total Protein Albumin Vitamin B12 Vancomycin Trough Allied health notes reviewed: nursing
--- NOTE | 2018-12-19 14:24 | Progress Note ---
Assessment and Plan Acute hypoxic respiratory failure, COPD exacerbation sp steroids, now dc, duo nebs, nebulizer treatments, oxygen support, continue antibiotics Bilateral pleural effusion Chest ultrasound was done improved DM2 with persistent hyperglycemia -a1c is 5.4, so high glc is due to steroids dc steroids, was bolused with insulin. cont ssi Sepsis secondary to Bilateral pneumonia completed abx For d/c tomorrow History of PE - Continue eliquis Paroxysmal atrial flutter - Controlled, continue eliquis, Cardiomyopathy, chronic systolic CHF with acute exacerbation - Patient is on IV Lasix, HadRight and left cath - Cardiology consulted and recommend to continue diurese the patient and right and left heart cath on Friday DVT prophylaxis Disposition;Home PT consult ordered Subjective Date of service: 12/18/18 Principal diagnosis: Ac hypoxemic resp failure; Gera PNA; AE-COPD; CHF; Pleural effusion Interval history: This is an 78-year old male with multiple medical problems. 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 Patient is on home O2. He also has paroxysmal atrial flutter, a history of bilateral PE, on Eliquis for oral anticoagulation. Patient presents with shortness of breath, coughs, leukocytosis, admitted with COPD exacerbation, Pneumonia and decompensated heart failure. Objective - Constitutional Vitals: Vital Signs - 12hr 12/19/18 12/19/18 12/19/18 07:23 08:37 08:38 Temperature 97.4 F L Pulse Rate 63 Pulse Rate [ 76 Anterior Bilateral Throughout] Respiratory 18 Rate Respiratory 16 Rate [Anterior Bilateral Throughout] Blood Pressure 128/62 O2 Sat by Pulse 100 99 Oximetry 12/19/18 12/19/18 12/19/18 10:17 10:18 10:29 Temperature Pulse Rate 65 65 65 Pulse Rate [ Anterior Bilateral Throughout] Respiratory Rate Respiratory Rate [Anterior Bilateral Throughout] Blood Pressure 126/47 126/47 126/47 O2 Sat by Pulse Oximetry 12/19/18 11:37 Temperature Pulse Rate Pulse Rate [ Anterior Bilateral Throughout] Respiratory 17 Rate Respiratory Rate [Anterior Bilateral Throughout] Blood Pressure O2 Sat by Pulse Oximetry General appearance: Present: no acute distress, well-nourished - EENT Eyes: PERRL, EOM intact ENT: hearing intact, clear oral mucosa Ears: bilateral: normal - Neck Neck: supple, normal ROM - Respiratory Respiratory effort: normal Respiratory: bilateral: CTA - Breasts Breasts: normal - Cardiovascular Rhythm: regular Heart Sounds: Present: S1 & S2. Absent: gallop, rub Extremities: pulses intact, No edema, normal color, Full ROM - Gastrointestinal General gastrointestinal: Present: soft, non-tender, non-distended, normal bowel sounds - Genitourinary Male genitourinary: normal - Integumentary Integumentary: clear, warm, dry - Musculoskeletal Musculoskeletal: 1, strength equal bilaterally - Neurologic Neurologic: moves all extremities - Psychiatric Psychiatric: memory intact, appropriate mood/affect, intact judgment & insight - Labs CBC & Chem 7: 12/18/18 05:53 12/18/18 05:53 Labs: Abnormal lab results 12/18/18 12/18/18 12/19/18 Range/Units 16:42 21:17 07:29 POC Glucose 308 H 393 H 228 H (70-105) 12/19/18 Range/Units 11:18 POC Glucose 337 H (70-105)
--- NOTE | 2018-12-19 14:26 | Discharge Summary ---
Providers - Providers Date of Admission: 12/08/18 12:32 Date of discharge: 12/19/18 Attending physician: SUNNI MACK 12/08/18 Consult to Case Management [CONS] Routine Services Needed at Discharge: Home Health Services Notified:: ARELI 12/08/18 20:05 Consult to Physician [CONS] Routine Comment: Consulting Provider: ANDREW [place] Physician Instructions: Reason For Exam: COPD exacerbation 12/09/18 08:04 Consult to Physician [CONS] Routine Comment: JULIEN Consulting Provider: KEVIN JOYNER Physician Instructions: WAS NOTIFIED Reason For Exam: bilateral pneumonia 12/10/18 10:03 Physical Therapy Evaluation and Treat [CONS] Routine Comment: Reason For Exam: weakness, debility 12/10/18 10:04 Occupational Therapy Evaluate and Treat [CONS] Routine Comment: Reason For Exam: Debility, needs help with ADLS 12/15/18 14:51 Consult to Cardiac Rehabilitation [CONS] Routine Reason For Exam: Cardiac Rehab Evaluation Additional Notes/Special Instructions: called cardiac rehab/ darrell Primary care physician: DARRELL QUINONES MD Hospitalization Condition: Stable Hospital course: Acute hypoxic respiratory failure, COPD exacerbation sp steroids, now dc, duo nebs, nebulizer treatments, oxygen support, continue antibiotics Bilateral pleural effusion Chest ultrasound was done improved Cont Neb treatments at home DM2 with persistent hyperglycemia -a1c is 5.4, so high glc is due to steroids dc steroids, was bolused with insulin. cont ssi Sepsis secondary to Bilateral pneumonia completed abx For d/c today History of PE - Continue eliquis Paroxysmal atrial flutter - Controlled, continue eliquis, Cardiomyopathy, chronic systolic CHF with acute exacerbation - Patient is on IV Lasix, HadRight and left cath Cardiology consulted and recommend to continue diuressis Disposition: DC-01 TO HOME OR SELFCARE Core Measure Documentation - Palliative Care Palliative Care/ Comfort Measures: Not Applicable - Core Measures Any of the following diagnoses?: none Exam - Constitutional Vitals: Temp Pulse Resp BP Pulse Ox 97.4 F L 65 17 126/47 99 12/19/18 07:23 12/19/18 10:29 12/19/18 11:37 12/19/18 10:29 12/19/18 08:37 General appearance: Present: no acute distress, well-nourished - EENT Eyes: Present: PERRL ENT: hearing intact, clear oral mucosa - Neck Neck: Present: supple, normal ROM - Respiratory Respiratory effort: normal Respiratory: bilateral: CTA - Cardiovascular Heart Sounds: Present: S1 & S2. Absent: rub, click - Extremities Extremities: pulses symmetrical, No edema Peripheral Pulses: within normal limits - Abdominal General gastrointestinal: Present: soft, non-tender, non-distended, normal bowel sounds Male genitourinary: Present: normal - Integumentary Integumentary: Present: clear, warm, dry - Musculoskeletal Musculoskeletal: gait normal, strength equal bilaterally - Psychiatric Psychiatric: appropriate mood/affect, intact judgment & insight - Neurologic Neurologic: CNII-XII intact, moves all extremities Plan Activity: no restrictions Diet: low salt Follow up with: PRIMARY CAREMD [Referring] - 3-5 Days COURTNEY RUIZ MD [Staff Physician] - 7 Days Prescriptions: Spironolactone [Aldactone] 25 mg PO QDAY #30 tablet Glimepiride [Amaryl] 2 mg PO QAMDIAB #30 tablet Aspirin EC 81 mg PO QDAY #30 tablet Amiodarone [Cordarone 200 MG TAB] 200 mg PO DAILY #30 tablet Carvedilol [Coreg] 12.5 mg PO BID #60 tablet Ipratropium/Albuterol Sulfate [DUONEB *Not for PRN Use*] 1 ampul IH TIDRT #50 ampul.neb Apixaban [Eliquis] 5 mg PO Q12HR #60 tablet Iron Fum,Ps/Folic/Bcomp,C No.9 [Integra Plus Capsule] 1 each PO DAILY #30 capsule Furosemide [Lasix TAB] 20 mg PO QDAY #30 tablet Metoprolol [Lopressor TAB] 50 mg PO BID #60 tablet prednisoLONE [Millipred 5mg (12 day - 48 tab dosepak)] 5 mg PO QDAY #48 tab.ds.pk Polyethylene Glycol 3350 [Miralax 3350] 17 gm PO QDAY #527 powd.pack ALBUTEROL Inhaler (OR & NICU) [ProAir HFA Inhaler] 2 puff IH Q4H PRN #1 inha PRN Reason: Wheezing Ascorbic Acid [Vitamin C] 500 mg PO QDAY #30 tablet
== END 2018-12-19 13:00 | disposition home health service (06) | DRG 871 ==
LOC: ED 08:43 → 2B-ACE 12:32
PROVIDERS: ADMIT Internal Medicine; ATTEND Internal Medicine
PROC: 4A033R1 Measurement of Arterial Saturation, Peripheral, Percutaneous Approach (ICD-10-PCS; 2018-12-08)
PROC: 4A023N8 Measurement of Cardiac Sampling and Pressure, Bilateral, Percutaneous Approach (ICD-10-PCS; principal; 2018-12-15)
PROC: B2111ZZ Fluoroscopy of Multiple Coronary Arteries using Low Osmolar Contrast (ICD-10-PCS; 2018-12-15)
PROC: B2151ZZ Fluoroscopy of Left Heart using Low Osmolar Contrast (ICD-10-PCS; 2018-12-15)
DX: A41.9 Sepsis, unspecified organism (principal); J18.9 Pneumonia, unspecified organism; J96.01 Acute respiratory failure with hypoxia; I50.23 Acute on chronic systolic (congestive) heart failure; J44.1 Chronic obstructive pulmonary disease with (acute) exacerbation; J44.0 Chronic obstructive pulmonary disease with (acute) lower respiratory infection; I48.92 Unspecified atrial flutter; I42.0 Dilated cardiomyopathy; I48.91 Unspecified atrial fibrillation; I27.20 Pulmonary hypertension, unspecified; I11.0 Hypertensive heart disease with heart failure; D64.9 Anemia, unspecified; E11.65 Type 2 diabetes mellitus with hyperglycemia; Z86.711 Personal history of pulmonary embolism; Z79.899 Other long term (current) drug therapy; Z79.82 Long term (current) use of aspirin; Z82.49 Family history of ischemic heart disease and other diseases of the circulatory system
CPT/HCPCS: 36415; 71045; 71046; 76604; 80048; 80053; 80076; 80202; 81001; 82140; 82550; 82553; 82607; 82747; 82803; 82962; 83036; 83550; 83735; 83880; 84484; 85007; 85025; 85610; 85730; 87040; 87116; 87205; 93005; 93010; 93306; 93460; 94640; 94644; 94760; 96365; 96367; 96375; G0378; C1760; C1894; J0692; J1644; J1815; J1940; J2185; J2250; J2920; J2930; J3010; J3370; J7030; J7040; Q9967

== ENCOUNTER 2019-01-04 10:51 | Observation (INO) | payer MEDICARE ==
[2019-01-04] MEDS ORDERED: NACL 0.9% 250ML 250 ML IV ONE (11:47)
--- NOTE | 2019-01-04 11:49 | Emergency Department Report ---
ED General Adult HPI - General Chief complaint: Syncope Stated complaint: LBP Time Seen by Provider: 01/04/19 11:32 Source: patient, family, RN notes reviewed, old records reviewed Mode of arrival: Ambulatory Limitations: No Limitations - History of Present Illness Initial comments: Primary care Dr.: Dr. Viraj Humphries Pulmonology: Neelima Alaniz Cardiology: Bonifacio Serna Past medical history: COPD, on chronic home oxygen, 2 L, CHF, ejection fraction 25%, hypertension, high cholesterol, GERD, diabetes, alcohol dependence. Had EGD in 2012, demonstrating gastritis, reportedly had colonoscopy in 2008, which showed angiodysplasia without bleeding in the sigmoid colon, and internal hemorrhoids. Patient currently takes systemic anticoagulation, martais Patient had an echocardiogram at this hospital last month, and also had a cardiac catheterization last month, which showed dilated nonischemic cardiomyopathy. The patient is sent to the ER by his jail officer for evaluation of asymptomatic hypotension. Apparently, the patient had a blood pressure of 80s over 50s in the office. As per daughter, who provides most of the history, the patient is not having any symptoms, and today's visit was a routine outpatient visit. The daughter indicates he is not drinking much water. The patient denies physical pain. The patient denies new or different symptoms. Neither the patient nor the daughter can't recall any issues with hematemesis, bright red blood per rectum, or black tarry stools. -: Sudden Improves with: none Worsens with: none Associated Symptoms: denies other symptoms - Related Data Home Medications Medication Instructions Recorded Confirmed Last Taken Amlodipine Besylate/Benazepril 1 each PO DAILY 01/04/19 01/04/19 Unknown [Amlodipine-Benazepril 5-10 mg] Metoprolol [Lopressor TAB] 25 mg PO BID 01/04/19 01/04/19 Unknown Pravastatin Sodium [Pravastatin] 10 mg PO QHS 01/04/19 01/04/19 Unknown metFORMIN [Glucophage] 500 mg PO BID 01/04/19 01/04/19 Unknown Previous Rx's Medication Instructions Recorded Last Taken Type ALBUTEROL Inhaler (OR & NICU) 2 puff IH Q4H PRN #1 inha 12/18/18 Unknown Rx [ProAir HFA Inhaler] Amiodarone [Cordarone 200 MG TAB] 200 mg PO DAILY #30 tablet 12/18/18 Unknown Rx Apixaban [Eliquis] 5 mg PO Q12HR #60 tablet 12/18/18 Unknown Rx Ascorbic Acid [Vitamin C] 500 mg PO QDAY #30 tablet 12/18/18 Unknown Rx Aspirin EC [Halfprin EC] 81 mg PO QDAY #30 tablet 12/18/18 Unknown Rx Carvedilol [Coreg] 12.5 mg PO BID #60 tablet 12/18/18 Unknown Rx Furosemide [Lasix TAB] 20 mg PO QDAY #30 tablet 12/18/18 Unknown Rx Glimepiride [Amaryl] 2 mg PO QAMDIAB #30 tablet 12/18/18 Unknown Rx Ipratropium/Albuterol Sulfate 1 ampul IH TIDRT #50 ampul.neb 12/18/18 Unknown Rx [DUONEB *Not for PRN Use*] Iron Fum,Ps/Folic/Bcomp,C No.9 1 each PO DAILY #30 capsule 12/18/18 Unknown Rx [Integra Plus Capsule] Polyethylene Glycol 3350 [Miralax 17 gm PO QDAY #527 powd.pack 12/18/18 Unknown Rx 3350] Spironolactone [Aldactone] 25 mg PO QDAY #30 tablet 12/18/18 Unknown Rx prednisoLONE [Millipred 5mg (12 5 mg PO QDAY #48 tab.ds.pk 12/18/18 Unknown Rx day - 48 tab dosepak)] Allergies Allergy/AdvReac Type Severity Reaction Status Date / Time No Known Allergies Allergy Verified 12/08/18 08:49 ED Review of Systems ROS: Stated complaint: LBP Other details as noted in HPI Constitutional: denies: fever Eyes: denies: eye discharge Respiratory: shortness of breath (chronic) Cardiovascular: denies: syncope Gastrointestinal: denies: hematemesis, melena, hematochezia Genitourinary: denies: dysuria Musculoskeletal: denies: back pain Skin: denies: lesions Neurological: weakness (chronic) Hematological/Lymphatic: denies: easy bleeding ED Past Medical Hx - Past Medical History Previous Medical History?: Yes Hx Hypertension: Yes Hx Congestive Heart Failure: Yes Hx Diabetes: Yes Hx HIV: No Additional medical history: HIGH CHOLESTEROL - Surgical History Past Surgical History?: Yes Additional Surgical History: Thoracentesis - Social History Smoking Status: Former Smoker Substance Use Type: None - Medications Home Medications: Home Medications Medication Instructions Recorded Confirmed Last Taken Type ALBUTEROL Inhaler (OR & NICU) 2 puff IH Q4H PRN #1 inha 12/18/18 01/04/19 Unknown Rx [ProAir HFA Inhaler] Amiodarone [Cordarone 200 MG TAB] 200 mg PO DAILY #30 tablet 12/18/18 01/04/19 Unknown Rx Apixaban [Eliquis] 5 mg PO Q12HR #60 tablet 12/18/18 01/04/19 Unknown Rx Ascorbic Acid [Vitamin C] 500 mg PO QDAY #30 tablet 12/18/18 01/04/19 Unknown Rx Aspirin EC [Halfprin EC] 81 mg PO QDAY #30 tablet 12/18/18 01/04/19 Unknown Rx Carvedilol [Coreg] 12.5 mg PO BID #60 tablet 12/18/18 01/04/19 Unknown Rx Furosemide [Lasix TAB] 20 mg PO QDAY #30 tablet 12/18/18 01/04/19 Unknown Rx Glimepiride [Amaryl] 2 mg PO QAMDIAB #30 tablet 12/18/18 01/04/19 Unknown Rx Ipratropium/Albuterol Sulfate 1 ampul IH TIDRT #50 ampul.neb 12/18/18 01/04/19 Unknown Rx [DUONEB *Not for PRN Use*] Iron Fum,Ps/Folic/Bcomp,C No.9 1 each PO DAILY #30 capsule 12/18/18 01/04/19 Unknown Rx [Integra Plus Capsule] Polyethylene Glycol 3350 [Miralax 17 gm PO QDAY #527 powd.pack 12/18/18 01/04/19 Unknown Rx 3350] Spironolactone [Aldactone] 25 mg PO QDAY #30 tablet 12/18/18 01/04/19 Unknown Rx prednisoLONE [Millipred 5mg (12 5 mg PO QDAY #48 tab.ds.pk 12/18/18 01/04/19 U nknown Rx day - 48 tab dosepak)] Amlodipine Besylate/Benazepril 1 each PO DAILY 01/04/19 01/04/19 Unknown History [Amlodipine-Benazepril 5-10 mg] Metoprolol [Lopressor TAB] 25 mg PO BID 01/04/19 01/04/19 Unknown History Pravastatin Sodium [Pravastatin] 10 mg PO QHS 01/04/19 01/04/19 Unknown History metFORMIN [Glucophage] 500 mg PO BID 01/04/19 01/04/19 Unknown History ED Physical Exam - General Limitations: Physical Limitation General appearance: alert, in no apparent distress - Head Head exam: Present: atraumatic, normocephalic - Eye Eye exam: Present: normal appearance (patient has chronically deformed-appearing right eye), EOMI. Absent: nystagmus - ENT ENT exam: Present: mucous membranes dry, normal external ear exam - Neck Neck exam: Present: normal inspection, full ROM. Absent: tenderness, meningismus - Respiratory Respiratory exam: Present: normal lung sounds bilaterally, other (very faint rales noted in the bilateral lung oakes, left greater than right). Absent: res piratory distress - Cardiovascular Cardiovascular Exam: Present: regular rate, normal rhythm. Absent: bradycardia, tachycardia, irregular rhythm, systolic murmur, diastolic murmur, rubs, gallop - GI/Abdominal GI/Abdominal exam: Present: soft. Absent: distended, tenderness, guarding, rebound, rigid, pulsatile mass - Rectal Rectal exam: Present: normal inspection, heme (+) stool, fecal impaction, other (chaperoned by nurse Mabel King). Absent: bloody stool - exam: Present: normal inspection - Extremities Exam Extremities exam: Present: normal inspection (there is a right groin hematoma noted, there is no redness, pus or streaking. There is a dressing noted. Chaperoned by nurse Kath Gilmore), other (2+ pulses noted in the bilateral upper, lower extremities. Compartments soft. No long bony tenderness. The pelvis is stable.). Absent: tenderness, joint swelling, calf tenderness - Back Exam Back exam: Present: normal inspection, full ROM. Absent: tenderness, CVA tenderness (R), CVA tenderness (L), paraspinal tenderness, vertebral tenderness - Neurological Exam Neurological exam: Present: alert, other (Extraocular movements intact. Tongue midline. No facial droop. Facial sensation intact to light touch in the V1, V2, V3 distribution bilaterally. 5 and 5 strength in 4 extremities.. Sensation is intact to light touch in 4 extremities.). Absent: motor sensory deficit - Psychiatric Psychiatric exam: Present: normal affect, normal mood - Skin Skin exam: Present: warm, ecchymosis (right groin ecchymosis.) ED Course Vital Signs 01/04/19 01/04/19 01/04/19 10:58 11:35 11:46 Temperature 97.6 F Pulse Rate 90 80 82 Respiratory 20 22 18 Rate Blood Pressure 90/45 115/49 O2 Sat by Pulse 95 100 Oximetry 01/04/19 01/04/19 01/04/19 12:00 12:15 12:30 Temperature Pulse Rate 83 75 80 Respiratory 19 19 19 Rate Blood Pressure 102/46 93/43 93/43 O2 Sat by Pulse 100 99 99 Oximetry 01/04/19 01/04/19 01/04/19 12:45 13:00 13:15 Temperature Pulse Rate 78 75 78 Respiratory 22 21 24 Rate Blood Pressure 89/47 89/47 120/55 O2 Sat by Pulse 100 99 100 Oximetry 01/04/19 01/04/19 01/04/19 13:30 13:45 14:00 Temperature Pulse Rate 76 80 76 Respiratory 22 14 20 Rate Blood Pressure 127/60 111/56 121/60 O2 Sat by Pulse 99 98 99 Oximetry 01/04/19 01/04/19 01/04/19 14:15 14:30 14:45 Temperature Pulse Rate 79 79 80 Respiratory 19 22 19 Rate Blood Pressure 119/51 127/62 127/62 O2 Sat by Pulse 98 98 98 Oximetry 01/04/19 01/04/19 01/04/19 15:00 15:15 15:38 Temperature Pulse Rate 81 76 80 Respiratory 17 22 19 Rate Blood Pressure 131/57 131/57 O2 Sat by Pulse 98 96 100 Oximetry 01/04/19 01/04/19 01/04/19 15:46 16:00 16:15 Temperature Pulse Rate 81 81 75 Respiratory 23 22 17 Rate Blood Pressure 127/70 137/69 128/67 O2 Sat by Pulse 99 98 99 Oximetry - Reevaluation(s) Reevaluation #1: 01/04/19 12:17 Differential diagnosis, including but not limited to: Dehydration, orthostasis, pneumonia, lower GI bleed, medication side effects Assessment and plan: 78-year-old gentleman sent to the ER by his jail officer for evaluation of asymptomatic hypotension. Patient has no symptoms, however, rectal temperature 99.1 degrees, hematocrit 30 today, was previously 36, down to have brown stool that is guaiac positive. IV fluids ordered, CT scan of the abdomen and pelvis ordered to exclude retroperitoneal hematoma, labs also show hyperkalemia that is not hemolyzed. Discussed with gastroenterology on-call, Dr. Parker, who agrees to follow in consultation. Urinalysis pending at this time. Discussed plan of care with family and patient, and we recommended admission for observation. Patient will also be given a trial bolus of 250 mL of normal saline. We will withhold antihypertensives and anticoagulants while here in the department. Hospital physician is paged to arrange admission. 01/04/19 12:47 Reevaluation #2: 01/04/19 14:[address] Neelima Welch for admission for resolving hypotension, and presumed lower GI bleed. Reevaluation #3: 01/04/19 14:17 Blood pressure improving at this time. ED Medical Decision Making - Lab Data Result diagrams: 01/04/19 11:14 01/04/19 11:14 Vital Signs 01/04/19 01/04/19 01/04/19 10:58 11:35 11:46 Temperature 97.6 F Pulse Rate 90 80 82 Respiratory 20 22 18 Rate Blood Pressure 90/45 115/49 O2 Sat by Pulse 95 100 Oximetry 01/04/19 01/04/19 12:00 12:15 Temperature Pulse Rate 83 75 Respiratory 21 19 Rate Blood Pressure 102/46 93/43 O2 Sat by Pulse 100 99 Oximetry Lab Results 01/04/19 01/04/19 Range/Units 11:14 11:14 WBC 10.8 (4.5-11.0) K/mm3 RBC 3.50 L (3.65-5.03) M/mm3 Hgb 10.0 L (11.8-15.2) gm/dl Hct 30.5 L (35.5-45.6) % MCV 87 (84-94) fl MCH 29 (28-32) pg MCHC 33 (32-34) % RDW 19.5 H (13.2-15.2) % Plt Count 198 (140-440) K/mm3 Lymph % (Auto) 10.4 L (13.4-35.0) % [place] % (Auto) 9.1 H (0.0-7.3) % Eos % (Auto) 5.1 H (0.0-4.3) % Baso % (Auto) 0.2 (0.0-1.8) % Lymph # 1.1 L (1.2-5.4) K/mm3 [place] # 1.0 H (0.0-0.8) K/mm3 Eos # 0.5 H (0.0-0.4) K/mm3 Baso # 0.0 (0.0-0.1) K/mm3 Seg Neutrophils % 75.2 H (40.0-70.0) % Seg Neutrophils # 8.1 H (1.8-7.7) K/mm3 Sodium 134 L (137-145) mmol/L Potassium 5.4 H (3.6-5.0) mmol/L Chloride 94.7 L (98-107) mmol/L Carbon Dioxide 25 (22-30) mmol/L Anion Gap 20 mmol/L BUN 20 (9-20) mg/dL Creatinine 1.0 (0.8-1.5) mg/dL Estimated GFR > 60 ml/min BUN/Creatinine Ratio 20 % Glucose 76 (75-100) mg/dL Calcium 9.0 (8.4-10.2) mg/dL - EKG Data -: EKG Interpreted by Me EKG shows normal: sinus rhythm Rate: normal - EKG Data 01/04/19 12:51 EKG shows a sinus rhythm, 84 bpm, left axis deviation, left anterior fascicular block, motion artifact, borderline left ventricular hypertrophy, nonspecific T- wave abnormalities, no endorsement of chest pain, the EKG is abnormal, were compared to prior EKG from November 2018, left axis deviation is new, left anterior fascicular block is new, nonspecific ST abnormalities in the lateral leads appear to be new Patient is not endorsing any chest pain, and had a cardiac catheterization last month. Therefore, does not require emergency cardiology consultation at this point time. - Radiology Data Radiology results: pending, report reviewed, image reviewed interpreted by me: X-ray the chest is negative for acute disease. Print Report Referring Physician: VIRAJ FABIAN Patient Name: ELIO QUINONES Date of : 1940 Sex: Male Report Date: 2019-01-04 Report Status: Finalized Findings [address] [place] [address] Cat Scan Report Signed Patient: ELIO QUINONES MR#: [id number] 8 : 1940 Acct :[id number] Age/Sex: 78 / M ADM Date: 01/04/19 Loc: [facility] B243-[address]: SHANTANU WELCH MD Ordering Physician: VIRAJ FABIAN MD Date of Service: 01/04/19 Procedure(s): CT abdomen pelvis wo con Accession Number(s): [id number] cc: VIRAJ FABIAN MD CT ABDOMEN AND PELVIS WITHOUT CONTRAST HISTORY: Chronic abdominal pain, hypotension COMPARISON: None. TECHNIQUE: Axial CT images were obtained through the abdomen and pelvis without IV contrast. Sagittal and coronal reformatted images. All CT scans at this location are performed using CT dose reduction for ALARA by means of automated exposure control. FINDINGS: CT ABDOMEN: Lung Bases: Chronic interstitial changes are noted in the lower lung zones. No pleural effusion. Normal heart size. Liver: No significant abnormality. Biliary: No significant abnormality. Spleen: No significant abnormality. Unenlarged. Pancreas: No significant abnormality. Adrenals: No significant abnormality. Kidneys: No significant abnormality. Lymphatics: No lymphadenopathy. Vasculature: Moderate diffuse calcific plaques throughout the aorta and iliac arteries. Bowel/Peritoneum: No significant abnormality. No free air. No free fluid. Normal appendix. CT PELVIS: : No significant abnormality. Osseous Structures: Moderate degenerative disc disease at L5-S1. Mild diffuse facet arthropathy in the lumbar spine. Additional Findings: None IMPRESSION: No acute process is identified in the abdomen or pelvis. Signer Name: Mj Dhaliwal Jr, MD Signed: 01/04/2019 4:13 PM Workstation Name: [id number] Transcribed By: TTR Dictated By: MJ DHALIWAL JR, MD Electronically Authenticated By: MJ DHALIWAL JR, MD Signed Date/Time: 01/04/19 4642 Critical care attestation.: If time is entered above; I have spent that time in minutes in the direct care of this critically ill patient, excluding procedure time. ED Disposition Clinical Impression: LGI bleed, Hypotension COPD (chronic obstructive pulmonary disease) Qualifiers: Chronic bronchitis type: mixed simple and mucopurulent Disposition: -09 OP ADMIT IP TO THIS HOSP Is pt being admited?: Yes Condition: Fair
[2019-01-04 12:01] LABS: Basophils % (Auto) 0.2 % (0.0-1.8); Eosinophils # (Auto) 0.5 K/mm3 (0.0-0.4); Eosinophils % (Auto) 5.1 % (0.0-4.3); Hematocrit 30.5 % (35.5-45.6); Lymphocytes # (Auto) 1.1 K/mm3 (1.2-5.4); Lymphocytes % (Auto) 10.4 % (13.4-35.0); Mean Corpuscular HGB Conc 33 % (32-34); Mean Corpuscular Volume 87 fl (84-94); Monocytes % (Auto) 9.1 % (0.0-7.3); Platelet Count 198 K/mm3 (140-440); Red Cell Distribution Width 19.5 % (13.2-15.2)
[2019-01-04 12:27] LABS: BUN/Creatinine Ratio 20; Blood Urea Nitrogen 20 mg/dL (9-20); Hemolysis Index 1
[2019-01-04] MEDS ORDERED: KIONEX PO ONE (12:51)
--- NOTE | 2019-01-04 12:51 | XRay Report ---
CHEST 1 VIEW 01/04/2019 11:46 AM INDICATION / CLINICAL INFORMATION: copd hx of hypotension. COMPARISON: 12/17/18 FINDINGS: SUPPORT DEVICES: None. HEART / MEDIASTINUM: Upper normal size and stable. LUNGS / PLEURA: Interval development of mild bilateral interstitial edema. No significant effusion. N o pneumothorax. ADDITIONAL FINDINGS: No significant additional findings. IMPRESSION: 1. Mild interstitial edema. Signer Name: Robb Gunn MD Signed: 01/04/2019 12:46 PM Workstation Name: [id number]
--- NOTE | 2019-01-04 13:42 | Gastroenterology Consultation ---
History of Present Illness - Reason for Consult Consult date: 01/04/19 occult positive blood Requesting physician: DARRELL FABIAN - History of Present Illness This is a 78 yo male with pmh of COPD, CHF, HTN, HLD, GERD, DM, and recent PE on eliquis presenting to the ED from his pulmonary clinic for low BP. GI consulted for occult positive blood. He had rectal exam done in the ED showing brown stool but occult blood was positive. He denies any blood in the stool or melena. No abdominal pain or nausea/vomiting. He had stool yesterday and it was hard but otherwise, no change in bowel habits. Last colonoscopy per family was within 5 years at [facility] and without any colon polyp. Patient is previously known to our service. He was last see in 2012 for c/o abdominal pain (epigastric) and underwent an EGD at that time that showed gastritis. Last colonoscopy 2008 showed angiodysplasia w/o bleeding in sigmoid colon and internal hemorrhoids. Medication list updated and reviewed Past History Past Medical History: heart failure, pulmonary embolism Social history: lives with family Family history: hypertension Medications and Allergies Allergies Allergy/AdvReac Type Severity Reaction Status Date / Time No Known Allergies Allergy Verified 12/08/18 08:49 Home Medications Medication Instructions Recorded Confirmed Last Taken Type ALBUTEROL Inhaler (OR & NICU) 2 puff IH Q4H PRN #1 inha 12/18/18 01/04/19 Unknown Rx [ProAir HFA Inhaler] Amiodarone [Cordarone 200 MG TAB] 200 mg PO DAILY #30 tablet 12/18/18 01/04/19 Unknown Rx Apixaban [Eliquis] 5 mg PO Q12HR #60 tablet 12/18/18 01/04/19 Unknown Rx Ascorbic Acid [Vitamin C] 500 mg PO QDAY #30 tablet 12/18/18 01/04/19 Unknown Rx Aspirin EC [Halfprin EC] 81 mg PO QDAY #30 tablet 12/18/18 01/04/19 Unknown Rx Carvedilol [Coreg] 12.5 mg PO BID #60 tablet 12/18/18 01/04/19 Unknown Rx Furosemide [Lasix TAB] 20 mg PO QDAY #30 tablet 12/18/18 01/04/19 Unknown Rx Glimepiride [Amaryl] 2 mg PO QAMDIAB #30 tablet 12/18/18 01/04/19 Unknown Rx Ipratropium/Albuterol Sulfate 1 ampul IH TIDRT #50 ampul.neb 12/18/18 01/04/19 Unknown Rx [DUONEB *Not for PRN Use*] Iron Fum,Ps/Folic/Bcomp,C No.9 1 each PO DAILY #30 capsule 12/18/18 01/04/19 Unknown Rx [Integra Plus Capsule] Polyethylene Glycol 3350 [Miralax 17 gm PO QDAY #527 powd.pack 12/18/18 01/04/19 Unknown Rx 3350] Spironolactone [Aldactone] 25 mg PO QDAY #30 tablet 12/18/18 01/04/19 Unknown Rx prednisoLONE [Millipred 5mg (12 5 mg PO QDAY #48 tab.ds.pk 12/18/18 01/04/19 Unknown Rx day - 48 tab dosepak)] Amlodipine Besylate/Benazepril 1 each PO DAILY 01/04/19 01/04/19 Unknown History [Amlodipine-Benazepril 5-10 mg] Metoprolol [Lopressor TAB] 25 mg PO BID 01/04/19 01/04/19 Unknown History Pravastatin Sodium [Pravastatin] 10 mg PO QHS 01/04/19 01/04/19 Unknown History metFORMIN [Glucophage] 500 mg PO BID 01/04/19 01/04/19 Unknown History Review of Systems - Review of Systems Constitutional: no weight loss, no weight gain Cardiovascular: no chest pain Respiratory: no cough Gastrointestinal: no abdominal pain, no nausea, no vomiting, no BRBPR, no melena, no hematochezia Neurological: weakness Exam - Constitutional Vital Signs: Temp Pulse Resp BP Pulse Ox 97.6 F 75 19 93/43 99 01/04/19 10:58 01/04/19 12:15 01/04/19 12:15 01/04/19 12:15 01/04/19 12:15 General appearance: no acute distress, well-nourished - EENT Eyes: EOM intact ENT: hearing intact - Neck Neck: supple - Respiratory Respiratory effort: normal Respiratory: bilateral: CTA - Cardiovascular Rhythm: regular Heart Sounds: Present: S1 & S2 - Gastrointestinal General gastrointestinal: Present: soft, non-tender, non-distended - Integumentary Integumentary: Present: clear, warm - Neurologic Neurological: alert and oriented x3 - Labs CBC & Chem 7: 01/04/19 11:14 01/04/19 11:14 Lab Results: Laboratory Results - last 24 hr 01/04/19 01/04/19 11:14 11:14 WBC 10.8 RBC 3.50 L Hgb 10.0 L Hct 30.5 L MCV 87 MCH 29 MCHC 33 RDW 19.5 H Plt Count 198 Lymph % (Auto) 10.4 L [place] % (Auto) 9.1 H Eos % (Auto) 5.1 H Baso % (Auto) 0.2 Lymph # 1.1 L [place] # 1.0 H Eos # 0.5 H Baso # 0.0 Seg Neutrophils % 75.2 H Seg Neutrophils # 8.1 H Sodium 134 L Potassium 5.4 H Chloride 94.7 L Carbon Dioxide 25 Anion Gap 20 BUN 20 Creatinine 1.0 Estimated GFR > 60 BUN/Creatinine Ratio 20 Glucose 76 Calcium 9.0 Assessment and Plan This is a 78 yo male with pmh of COPD, CHF, HTN, HLD, GERD, DM, and recent PE on eliquis presenting to the ED from his pulmonary clinic for low BP. GI consulted for occult positive blood. # Anemia: chronic anemia. # Occult blood positive. - no overt signs of active GI bleeding at this time. - last colonoscopy within 5 years per family and normal. Rec; - monitor H/H. - no plans for endoscopy. - will follow.
[2019-01-04 13:43] LABS: INR 1.33 (0.87-1.13); Partial Thromboplastin Time 26.5 Sec. (24.2-36.6)
--- NOTE | 2019-01-04 15:16 | History and Physical Report ---
History of Present Illness Chief complaint: My doctor told me to come and get checked out History of present illness: 78 YO Male with HTN, Systolic CHF, DM, HLD, Bilateral Pulmonary Embolism on Therapeutic Anticoagulation with Eliquis, Chronic Respiratory Failure on Home Oxygen presents to ED for evaluation. Pt reports that he went to his PCP for a routine visit and was found to be hypotensive with SBP in the 80's. Pt transported to [facility] via private vehicle. Pt seen and evaluated in ED and found to have Heme Positive stool, as well as symptoms consistent with lower GI bleeding. Pt denies any symptoms. Pt admitted to telemetry and initiated on CHF protocol. Cardiology consulted in ED. Pt denies fever, chills, hemoptysis, BRBPR, Unintentional weight loss, night sweats, seizure, vertigo, loss of bowel/bladder continence. Prior admission on 12/08/18 reviewed. All listed medication reconciled at time of admission. Past History Past Medical History: diabetes, heart failure, hypertension, hyperlipidemia, pulmonary embolism, other (Chronic Respiratory Failure) Past Surgical History: Other (thoracentesis) Social history: single. denies: smoking, alcohol abuse, prescription drug abuse Family history: CAD, hypertension Medications and Allergies Allergies Allergy/AdvReac Type Severity Reaction Status Date / Time No Known Allergies Allergy Verified 12/08/18 08:49 Home Medications Medication Instructions Recorded Confirmed Last Taken Type ALBUTEROL Inhaler (OR & NICU) 2 puff IH Q4H PRN #1 inha 12/18/18 01/04/19 Unknown Rx [ProAir HFA Inhaler] Amiodarone [Cordarone 200 MG TAB] 200 mg PO DAILY #30 tablet 12/18/18 01/04/19 Unknown Rx Apixaban [Eliquis] 5 mg PO Q12HR #60 tablet 12/18/18 01/04/19 Unknown Rx Ascorbic Acid [Vitamin C] 500 mg PO QDAY #30 tablet 12/18/18 01/04/19 Unknown Rx Aspirin EC [Halfprin EC] 81 mg PO QDAY #30 tablet 12/18/18 01/04/19 Unknown Rx Carvedilol [Coreg] 12.5 mg PO BID #60 tablet 12/18/18 01/04/19 Unknown Rx Furosemide [Lasix TAB] 20 mg PO QDAY #30 tablet 12/18/18 01/04/19 Unknown Rx Glimepiride [Amaryl] 2 mg PO QAMDIAB #30 tablet 12/18/18 01/04/19 Unknown Rx Ipratropium/Albuterol Sulfate 1 ampul IH TIDRT #50 ampul.neb 12/18/18 01/04/19 Unknown Rx [DUONEB *Not for PRN Use*] Iron Fum,Ps/Folic/Bcomp,C No.9 1 each PO DAILY #30 capsule 12/18/18 01/04/19 Unknown Rx [Integra Plus Capsule] Polyethylene Glycol 3350 [Miralax 17 gm PO QDAY #527 powd.pack 12/18/18 01/04/19 Unknown Rx 3350] Spironolactone [Aldactone] 25 mg PO QDAY #30 tablet 12/18/18 01/04/19 Unknown Rx prednisoLONE [Millipred 5mg (12 5 mg PO QDAY #48 tab.ds.pk 12/18/18 01/04/19 Unknown Rx day - 48 tab dosepak)] Amlodipine Besylate/Benazepril 1 each PO DAILY 01/04/19 01/04/19 Unknown History [Amlodipine-Benazepril 5-10 mg] Metoprolol [Lopressor TAB] 25 mg PO BID 01/04/19 01/04/19 Unknown History Pravastatin Sodium [Pravastatin] 10 mg PO QHS 01/04/19 01/04/19 Unknown History metFORMIN [Glucophage] 500 mg PO BID 01/04/19 01/04/19 Unknown History Review of Systems Constitutional: no weight loss, no weight gain, no fever, no chills Ears, nose, mouth and throat: no ear pain, no ear discharge, no tinnitis, no decreased hearing, no nose pain, no nasal congestion, no sinus pressure Cardiovascular: no chest pain, no orthopnea, no palpitations, no rapid/irregular heart beat, no edema, no lightheadedness Respiratory: no cough, no cough with sputum, no excessive sputum, no hemoptysis Gastrointestinal: no abdominal pain, no nausea, no vomiting, no diarrhea, no constipation, no change in bowel habits, no hematemesis Genitourinary Male: no hematuria, no flank pain, no discharge, no urinary frequency, no urinary hesitancy Rectal: no pain, no incontinence, no bleeding Musculoskeletal: no neck stiffness, no neck pain, no shooting arm pain, no low back pain, no shooting leg pain, no leg numbness/tingling Integumentary: no rash, no pruritis, no redness, no sores, no jaundice, no bull ae, no lesions, no darkening of skin, no depigmentation Neurological: no head injury, no transient paralysis, no paralysis, no weakness, no parathesias, no tingling, no syncope, no convulsions, no aphasia Psychiatric: no anxiety, no memory loss, no sleep disturbances, no insomnia, no hypersomnia, no change in appetite, no disorientation, no depression, no difficulties concentrating, no confusion, no irritability, no mood swings Endocrine: no cold intolerance, no heat intolerance, no polyphagia, no excessive thirst, no polyuria, no nocturia, no flushing, no proptosis, no deepening of the voice, no thyroid mass, no palpatations Hematologic/Lymphatic: no easy bruising, no easy bleeding, no lymphadenopathy, no lymphedema Allergic/Immunologic: no urticaria, no allergic rhinitis, no wheezing, no persistent infections, no anaphylaxis, no angioedema Exam - Constitutional Vitals: Temp Pulse Resp BP Pulse Ox 97.6 F 76 20 121/60 99 01/04/19 10:58 01/04/19 14:00 01/04/19 14:00 01/04/19 14:00 01/04/19 14:00 General appearance: Present: mild distress, well-nourished - EENT Eyes: Present: PERRL ENT: hearing intact, clear oral mucosa - Neck Neck: Present: supple, normal ROM - Respiratory Respiratory effort: normal Respiratory: bilateral: CTA - Cardiovascular Heart Sounds: Present: S1 & S2. Absent: rub, click - Extremities Extremities: pulses symmetrical, No edema Peripheral Pulses: within normal limits - Abdominal General gastrointestinal: Present: soft, non-tender, non-distended, normal bowel sounds Male genitourinary: Present: normal - Integumentary Integumentary: Present: clear, warm, dry - Musculoskeletal Musculoskeletal: gait normal, strength equal bilaterally - Psychiatric Psychiatric: appropriate mood/affect, intact judgment & insight - Neurologic Neurologic: CNII-XII intact, moves all extremities Results - Labs CBC & Chem 7: 01/04/19 11:14 01/04/19 11:14 Labs: Abnormal lab results 01/04/19 01/04/19 01/04/19 Range/Units 11:14 11:14 12:27 RBC 3.50 L (3.65-5.03) M/mm3 Hgb 10.0 L (11.8-15.2) gm/dl Hct 30.5 L (35.5-45.6) % RDW 19.5 H (13.2-15.2) % Lymph % (Auto) 10.4 L (13.4-35.0) % [place] % (Auto) 9.1 H (0.0-7.3) % Eos % (Auto) 5.1 H (0.0-4.3) % Lymph # 1.1 L (1.2-5.4) K/mm3 [place] # 1.0 H (0.0-0.8) K/mm3 Eos # 0.5 H (0.0-0.4) K/mm3 Seg Neutrophils % 75.2 H (40.0-70.0) % Seg Neutrophils # 8.1 H (1.8-7.7) K/mm3 PT 16.1 H (12.2-14.9) Sec. INR 1.33 H (0.87-1.13) Sodium 134 L (137-145) mmol/L Potassium 5.4 H (3.6-5.0) mmol/L Chloride 94.7 L (98-107) mmol/L Lactic Acid (0.7-2.0) mmol/L Total Creatine Kinase (55-170) units/L 01/04/19 01/04/19 Range/Units 12:27 12:27 RBC (3.65-5.03) M/mm3 Hgb (11.8-15.2) gm/dl Hct (35.5-45.6) % RDW (13.2-15.2) % Lymph % (Auto) (13.4-35.0) % [place] % (Auto) (0.0-7.3) % Eos % (Auto) (0.0-4.3) % Lymph # (1.2-5.4) K/mm3 [place] # (0.0-0.8) K/mm3 Eos # (0.0-0.4) K/mm3 Seg Neutrophils % (40.0-70.0) % Seg Neutrophils # (1.8-7.7) K/mm3 PT (12.2-14.9) Sec. INR (0.87-1.13) Sodium (137-145) mmol/L Potassium (3.6-5.0) mmol/L Chloride (98-107) mmol/L Lactic Acid 2.60 H* (0.7-2.0) mmol/L Total Creatine Kinase 28 L (55-170) units/L Assessment and Plan - Patient Problems (1) GI bleed Current Visit: Yes Status: Acute Qualifiers: GI bleed type/associated pathology: angiodysplasia of stomach and duodenum Qualified Code(s): K31.811 - Angiodysplasia of stomach and duodenum with bleeding Plan to address problem: PPI therapy, GI consulted in ED, hemoccult, serial CBC, No transfusion at this time, supportive care, D/C NSAID therapy, (2) Chronic respiratory failure Current Visit: Yes Status: Acute Qualifiers: Respiratory failure complication: hypoxia Qualified Code(s): J96.11 - Chronic respiratory failure with hypoxia Plan to address problem: Supplemental oxygen, nebulizer therapy, pulse oximetry, NIPPV as clinically indicated. (3) COPD (chronic obstructive pulmonary disease) Current Visit: Yes Status: Acute Qualifiers: Chronic bronchitis type: mixed simple and mucopurulent Plan to address problem: Supplemental oxygen, nebulizer therapy, supportive care. (4) Diabetes Current Visit: No Status: Acute Plan to address problem: ADA diet, insulin, accucheck, hypoglycemia protocol (5) Hyperlipidemia Current Visit: No Status: Chronic Qualifiers: Hyperlipidemia type: mixed hyperlipidemia Qualified Code(s): E78.2 - Mixed hyperlipidemia Plan to address problem: balanced diet, low cholesterol diet, statin therapy as indicated (6) Hypertension Current Visit: No Status: Chronic Qualifiers: Hypertension type: essential hypertension Plan to address problem: Monitor BP q shift, continue current therapy, (7) DVT prophylaxis Current Visit: No Status: Acute Plan to address problem: SCD to BLE while in bed, hold anticoagulation secondary to GI bleeding
[2019-01-04] MEDS ORDERED: PROVENTIL IH PRN (15:17)
[2019-01-04] MEDS ORDERED: ZOFRAN IV PRN (15:17)
[2019-01-04] MEDS ORDERED: SODIUM CHLORIDE FLUSH SYRINGE 10 ML IV PRN (15:17)
[2019-01-04] MEDS ORDERED: PROAIR IH PRN (15:18)
--- NOTE | 2019-01-04 16:17 | Cat Scan Report ---
CT ABDOMEN AND PELVIS WITHOUT CONTRAST HISTORY: Chronic abdominal pain, hypotension COMPARISON: None. TECHNIQUE: Axial CT images were obtained through the abdomen and pelvis without IV contrast. Sagittal and coronal reformatted images. All CT scans at this location are performed using CT dose reduction for ALARA by means of automated exposure control. FINDINGS: CT ABDOMEN: Lung Bases: Chronic interstitial changes are noted in the lower lung zones. No pleural effusion. Norm al heart size. Liver: No significant abnormality. Biliary: No significant abnormality. Spleen: No significant abnormality. Unenlarged. Pancreas: No significant abnormality. Adrenals: No significant abnormality. Kidneys: No significant abnormality. Lymphatics: No lymphadenopathy. Vasculature: Moderate diffuse calcific plaques throughout the aorta and iliac arteries. Bowel/Peritoneum: No significant abnormality. No free air. No free fluid. Normal appendix. CT PELVIS: : No significant abnormality. Osseous Structures: Moderate degenerative disc disease at L5-S1. Mild diffuse facet arthropathy in th e lumbar spine. Additional Findings: None IMPRESSION: No acute process is identified in the abdomen or pelvis. Signer Name: Mj Dhaliwal Jr, MD Signed: 01/04/2019 4:13 PM Workstation Name: [id number]
[2019-01-04] MEDS ORDERED: NON-FORMULARY (Pravastatin Sodium [Pravastatin] 10 MG) PO SCH (22:00)
[2019-01-04] MEDS: ELIQUIS PO SCH (22:40)
[2019-01-04] MEDS: SODIUM CHLORIDE FLUSH SYRINGE 10 ML IV SCH (22:40)
[2019-01-04] MEDS: PRAVACHOL PO SCH (22:40)
[2019-01-04] MEDS: COREG PO SCH (22:40)
[2019-01-05 09:32] LABS: Basophils # (Auto) 0.1 K/mm3 (0.0-0.1); Basophils % (Auto) 0.5 % (0.0-1.8); Eosinophils # (Auto) 0.4 K/mm3 (0.0-0.4); Eosinophils % (Auto) 4.2 % (0.0-4.3); Hemoglobin 10.6 gm/dl (11.8-15.2); Lymphocytes # (Auto) 1.1 K/mm3 (1.2-5.4); Lymphocytes % (Auto) 10.9 % (13.4-35.0); Mean Corpuscular HGB Conc 33 % (32-34); Mean Corpuscular Volume 87 fl (84-94); Monocytes # (Auto) 0.8 K/mm3 (0.0-0.8); Monocytes % (Auto) 7.6 % (0.0-7.3); Platelet Count 204 K/mm3 (140-440); Red Blood Count 3.66 M/mm3 (3.65-5.03)
[2019-01-05 09:55] LABS: BUN/Creatinine Ratio 15; Blood Urea Nitrogen 9 mg/dL (9-20); Calcium 8.9 mg/dL (8.4-10.2); Hemolysis Index 6
[2019-01-05] MEDS ORDERED: [UNRECOGNIZED DRUG - OTHER] PO SCH ×2 (10:00)
[2019-01-05] MEDS ORDERED: AMLODIPINE BESYLATE PO SCH (10:00)
[2019-01-05] MEDS ORDERED: IRON FUM PS PO SCH ×2 (10:00)
[2019-01-05] MEDS ORDERED: BENAZEPRIL PO SCH (10:00)
[2019-01-05] MEDS ORDERED: FOLIC PO SCH ×2 (10:00)
--- NOTE | 2019-01-05 10:22 | Gastroenterology Progress Note ---
Assessment and Plan This is a 78 yo male with pmh of COPD, CHF, HTN, HLD, GERD, DM, and recent PE on eliquis presenting to the ED from his pulmonary clinic for low BP. GI consulted for occult positive blood. # Anemia: chronic anemia. # Occult blood positive. - H/H 10.6/32.0- stable - continue to monitor and transfuse as needed - no active/overt signs of GI bleeding - last colonoscopy within 5 years per family and normal - no plan for endoscopy - continue PPI and supportive care - patient okay to be d/c per GI standpoint - will sign off, please call if needed Subjective Date of service: 01/05/19 Principal diagnosis: anemia, LGIB? Interval history: Patient resting in bed w/o acute distress. No active signs of bleeding overnight or this am. Denies abd pain or N/v. Tolerating diet. Objective - Constitutional Vitals: Temp Pulse Resp BP Pulse Ox 99.7 F H 87 18 121/60 96 01/05/19 01:57 01/05/19 01:57 01/05/19 03:57 01/05/19 01:57 01/05/19 07:51 General appearance: no acute distress - Respiratory Respiratory effort: normal - Cardiovascular Rhythm: regular - Gastrointestinal General gastrointestinal: Present: soft, non-tender, non-distended, normal bowel sounds - Labs CBC & Chem 7: 01/05/19 09:14 01/05/19 09:14 Labs: Laboratory Results - last 24 hr 01/04/19 01/04/19 01/04/19 11:14 11:14 12:27 WBC 10.8 RBC 3.50 L Hgb 10.0 L Hct 30.5 L MCV 87 MCH 29 MCHC 33 RDW 19.5 H Plt Count 198 Lymph % (Auto) 10.4 L [place] % (Auto) 9.1 H Eos % (Auto) 5.1 H Baso % (Auto) 0.2 Lymph # 1.1 L [place] # 1.0 H Eos # 0.5 H Baso # 0.0 Seg Neutrophils % 75.2 H Seg Neutrophils # 8.1 H PT 16.1 H INR 1.33 H APTT 26.5 Sodium 134 L Potassium 5.4 H Chloride 94.7 L Carbon Dioxide 25 Anion Gap 20 BUN 20 Creatinine 1.0 Estimated GFR > 60 BUN/Creatinine Ratio 20 Glucose 76 POC Glucose Lactic Acid Calcium 9.0 Magnesium Total Creatine Kinase Troponin T NT-Pro-B Natriuret Pep Blood Type Antibody Screen 01/04/19 01/04/19 01/04/19 12:27 12:27 14:07 WBC RBC Hgb Hct MCV MCH MCHC RDW Plt Count Lymph % (Auto) [place] % (Auto) Eos % (Auto) Baso % (Auto) Lymph # [place] # Eos # Baso # Seg Neutrophils % Seg Neutrophils # PT INR APTT Sodium Potassium Chloride Carbon Dioxide Anion Gap BUN Creatinine Estimated GFR BUN/Creatinine Ratio Glucose POC Glucose Lactic Acid 2.60 H* Calcium Magnesium 2.20 Total Creatine Kinase 28 L Troponin T < 0.010 NT-Pro-B Natriuret Pep 340.7 Blood Type A POSITIVE Antibody Screen Negative 01/04/19 01/05/19 01/05/19 14:07 07:25 09:14 WBC 10.3 RBC 3.66 Hgb 10.6 L Hct 32.0 L MCV 87 MCH 29 MCHC 33 RDW 19.0 H Plt Count 204 Lymph % (Auto) 10.9 L [place] % (Auto) 7.6 H Eos % (Auto) 4.2 Baso % (Auto) 0.5 Lymph # 1.1 L [place] # 0.8 Eos # 0.4 Baso # 0.1 Seg Neutrophils % 76.8 H Seg Neutrophils # 7.9 H PT INR APTT Sodium Potassium Chloride Carbon Dioxide Anion Gap BUN Creatinine Estimated GFR BUN/Creatinine Ratio Glucose POC Glucose 104 Lactic Acid 1.30 Calcium Magnesium Total Creatine Kinase Troponin T NT-Pro-B Natriuret Pep Blood Type Antibody Screen 01/05/19 09:14 WBC RBC Hgb Hct MCV MCH MCHC RDW Plt Count Lymph % (Auto) [place] % (Auto) Eos % (Auto) Baso % (Auto) Lymph # [place] # Eos # Baso # Seg Neutrophils % Seg Neutrophils # PT INR APTT Sodium 126 L D Potassium 4.8 Chloride 89.5 L Carbon Dioxide 26 Anion Gap 15 BUN 9 Creatinine 0.6 L Estimated GFR > 60 BUN/Creatinine Ratio 15 Glucose 172 H POC Glucose Lactic Acid Calcium 8.9 Magnesium Total Creatine Kinase Troponin T NT-Pro-B Natriuret Pep Blood Type Antibody Screen
[2019-01-05] MEDS: MIRALAX 3350 PO SCH (10:35)
[2019-01-05] MEDS: LASIX PO SCH (10:36)
[2019-01-05] MEDS: ZESTRIL PO SCH (10:36)
[2019-01-05] MEDS: CORDARONE PO SCH (10:36)
[2019-01-05] MEDS: ELIQUIS PO SCH ×2 (10:36→22:53)
[2019-01-05] MEDS: COREG PO SCH ×2 (10:36→22:52)
[2019-01-05] MEDS: NORVASC PO SCH (10:36)
[2019-01-05] MEDS: Renal Caps PO SCH (10:36)
[2019-01-05] MEDS: VITAMIN C PO SCH (10:36)
[2019-01-05] MEDS: SODIUM CHLORIDE FLUSH SYRINGE 10 ML IV SCH ×2 (10:37→22:56)
[2019-01-05] MEDS ORDERED: D50W (25GM) Syringe IV PRN (14:12)
[2019-01-05] MEDS: PROTONIX PO SCH (14:14)
--- NOTE | 2019-01-05 14:27 | Progress Note ---
Assessment and Plan Assessment and plan: 78 YO Male with HTN, Systolic CHF, DM, HLD, Bilateral Pulmonary Embolism on Therapeutic Anticoagulation with Eliquis, Chronic Respiratory Failure on Home Oxygen presents to ED for evaluation. Pt reports that he went to his PCP for a routine visit and was found to be hypotensive with SBP in the 80's. Pt transported to [facility] via private vehicle. Pt seen and evaluated in ED and found to have Heme Positive stool, as well as symptoms consistent with lower GI bleeding. Pt denies any symptoms. Pt admitted to telemetry and initiated on CHF protocol. Cardiology consulted in ED. Pt denies fever, chills, hemoptysis, BRBPR, Unintentional weight loss, night sweats, seizure, vertigo, loss of bowel/bladder continence. Prior admission on 12/08/18 reviewed. All listed medication reconciled at time of admission. (1) GI bleed - GI consulted - H&H stable - Avoid NSAIDs (2) Chronic respiratory failure Supplemental oxygen, nebulizer therapy, pulse oximetry, NIPPV as clinically indicated. (3) COPD (chronic obstructive pulmonary disease) Supplemental oxygen, nebulizer therapy, supportive care. (4) Diabetes ADA diet, insulin, accucheck, hypoglycemia protocol (5) Hyperlipidemia balanced diet, low cholesterol diet, statin therapy as indicated (6) Hypertension Monitor BP q shift, continue current therapy, (7) DVT prophylaxis : SCD to BLE while in bed, hold anticoagulation secondary to GI bleeding History Interval history: patient was seen and evaluated this morning, patient didn't have any complaints. Hospitalist Physical - Physical exam Narrative exam: Not in cardiopulmonary distress. The patient appeared well nourished and normally developed. Vital signs as documented. Head exam is unremarkable. No scleral icterus . Neck is without jugular venous distension, thyromegaly, or carotid bruits. Lungs are clear to auscultation. Cardiac exam reveals regular rate and Rhythm. First and second heart sounds normal. No murmurs, rubs or gallops. Abdominal exam reveals normal bowel sounds, no masses, no organomegaly and no aortic enlargement. Extremities are nonedematous and both femoral and pedal pulses are normal. TOOL DRAWING CHECKER: Alert and oriented 3. No focal weakness. - Constitutional Vitals: Temp Pulse Resp BP Pulse Ox 99.0 F 85 18 127/54 96 01/05/19 07:20 01/05/19 07:21 01/05/19 11:53 01/05/19 07:20 01/05/19 07:51 General appearance: Present: mild distress, well-nourished Results - Labs CBC & Chem 7: 01/05/19 09:14 01/05/19 09:14 Labs: Laboratory Last Values WBC 10.3 K/mm3 (4.5-11.0) 01/05/19 09:14 RBC 3.66 M/mm3 (3.65-5.03) 01/05/19 09:14 Hgb 10.6 gm/dl (11.8-15.2) L 01/05/19 09:14 Hct 32.0 % (35.5-45.6) L 01/05/19 09:14 MCV 87 fl (84-94) 01/05/19 09:14 MCH 29 pg (28-32) 01/05/19 09:14 MCHC 33 % (32-34) 01/05/19 09:14 RDW 19.0 % (13.2-15.2) H 01/05/19 09:14 Plt Count 204 K/mm3 (140-440) 01/05/19 09:14 Lymph % (Auto) 10.9 % (13.4-35.0) L 01/05/19 09:14 [place] % (Auto) 7.6 % (0.0-7.3) H 01/05/19 09:14 Eos % (Auto) 4.2 % (0.0-4.3) 01/05/19 09:14 Baso % (Auto) 0.5 % (0.0-1.8) 01/05/19 09:14 Lymph # 1.1 K/mm3 (1.2-5.4) L 01/05/19 09:14 [place] # 0.8 K/mm3 (0.0-0.8) 01/05/19 09:14 Eos # 0.4 K/mm3 (0.0-0.4) 01/05/19 09:14 Baso # 0.1 K/mm3 (0.0-0.1) 01/05/19 09:14 Seg Neutrophils % 76.8 % (40.0-70.0) H 01/05/19 09:14 Seg Neutrophils # 7.9 K/mm3 (1.8-7.7) H 01/05/19 09:14 PT 16.1 Sec. (12.2-14.9) H 01/04/19 12:27 INR 1.33 (0.87-1.13) H 01/04/19 12:27 APTT 26.5 Sec. (24.2-36.6) 01/04/19 12:27 Sodium 126 mmol/L (137-145) L D 01/05/19 09:14 Potassium 4.8 mmol/L (3.6-5.0) 01/05/19 09:14 Chloride 89.5 mmol/L (98-107) L 01/05/19 09:14 Carbon Dioxide 26 mmol/L (22-30) 01/05/19 09:14 15 mmol/L 01/05/19 09:14 BUN 9 mg/dL (9-20) 01/05/19 09:14 0.6 mg/dL (0.8-1.5) L 01/05/19 09:14 Estimated GFR > 60 ml/min 01/05/19 09:14 15 % 01/05/19 09:14 Glucose 172 mg/dL (75-100) H 01/05/19 09:14 POC Glucose 220 (70-105) H 01/05/19 11:22 Lactic Acid 1.30 mmol/L (0.7-2.0) 01/04/19 14:07 Calcium 8.9 mg/dL (8.4-10.2) 01/05/19 09:14 Magnesium 2.20 mg/dL (1.7-2.3) 01/04/19 12:27 28 units/L (55-170) L 01/04/19 12:27 < 0.010 ng/mL (0.00-0.029) 01/04/19 12:27 NT-Pro-B Natriuret Pep 340.7 pg/mL (0-900) 01/04/19 12:27 Blood Type A POSITIVE 01/04/19 14:07 Antibody Screen Negative 01/04/19 14:07 Active Medications - Current Medications Current Medications: Generic Name Dose Route Start Last Admin Trade Name Freq PRN Reason Stop Dose Admin Acetaminophen 650 mg 01/04/19 15:17 Tylenol PO Q4H PRN Pain MILD(1-3)/Fever >100.5/[place] Albuterol 2.5 mg 01/04/19 15:17 Proventil IH Q4HRT PRN Shortness Of Breath Amiodarone HCl 200 mg 01/05/19 10:00 01/05/19 10:36 Cordarone PO 200 mg DAILY DEIDRA Administration Amlodipine Besylate 5 mg 01/05/19 10:00 01/05/19 10:36 Norvasc PO 5 mg QDAY DEIDRA Administration Apixaban 5 mg 01/04/19 22:00 01/05/19 10:36 Eliquis PO 5 mg Q12HR DEIDRA Administration Protocol Ascorbic Acid 500 mg 01/05/19 10:00 01/05/19 10:36 Vitamin C PO 500 mg QDAY DEIDRA Administration Carvedilol 12.5 mg 01/04/19 22:00 01/05/19 10:36 Coreg PO 12.5 mg BID DEIDRA Administration Dextrose 50 ml 01/05/19 14:12 D50w (25gm) Syringe IV PRN PRN Hypoglycemia Furosemide 20 mg 01/05/19 10:00 01/05/19 10:36 Lasix PO 20 mg QDAY DEIDRA Administration Insulin Human Lispro 0 unit 01/05/19 22:00 Humalog SUB-Q QHS [facility] Protocol Lisinopril 10 mg 01/05/19 10:00 01/05/19 10:36 Zestril PO 10 mg QDAY DEIDRA Administration Multivit/Ca Carb/B Cmplx/FA/Prenat 1 cap 01/05/19 10:00 01/05/19 10:36 Renal Caps PO 1 cap QDAY DEIDRA Administration Ondansetron HCl 4 mg 01/04/19 15:17 Zofran IV Q8H PRN Nausea And Vomiting Pantoprazole Sodium 40 mg 01/05/19 11:00 01/05/19 14:14 Protonix PO 40 mg QDAY DEIDRA Administration Polyethylene Glycol 17 gm 01/05/19 10:00 01/05/19 10:35 Miralax 3350 PO 17 gm QDAY DEIDRA Administration Pravastatin Sodium 10 mg 01/04/19 22:00 01/04/19 22:40 Pravachol PO 10 mg QHS DEIDRA Administration Sodium Chloride 10 ml 01/04/19 22:00 01/05/19 10:37 Sodium Chloride Flush Syringe 10 Ml IV 10 ml BID DEIDRA Administration Sodium Chloride 10 ml 01/04/19 15:17 Sodium Chloride Flush Syringe 10 Ml IV PRN PRN LINE FLUSH Spironolactone 25 mg 01/06/19 10:00 Aldactone PO QDAY DEIDRA
[2019-01-05 16:49] LABS: Bilirubin,Urine NEG (Negative); Blood,Urine SM (Negative); Color,Urine Yellow (Yellow); Mucus,Urine FEW /HPF; Protein,Urine <15 mg/dL mg/dL (Negative); Urobilinogen,Urine < 2.0 mg/dL (<2.0); WBC,Urine < 1.0 /HPF (0.0-6.0)
[2019-01-05] MEDS: PRAVACHOL PO SCH (22:53)
[2019-01-05] MEDS: HumaLOG SUB-Q SCH (22:53)
[2019-01-06 06:22] LABS: Basophils # (Auto) 0.1 K/mm3 (0.0-0.1); Basophils % (Auto) 0.7 % (0.0-1.8); Eosinophils # (Auto) 0.5 K/mm3 (0.0-0.4); Eosinophils % (Auto) 5.4 % (0.0-4.3); Hematocrit 28.7 % (35.5-45.6); Hemoglobin 9.6 gm/dl (11.8-15.2); Lymphocytes # (Auto) 1.3 K/mm3 (1.2-5.4); Lymphocytes % (Auto) 13.7 % (13.4-35.0); Mean Corpuscular HGB Conc 33 % (32-34); Mean Corpuscular Volume 86 fl (84-94); Monocytes # (Auto) 0.9 K/mm3 (0.0-0.8); Monocytes % (Auto) 10.1 % (0.0-7.3); Platelet Count 200 K/mm3 (140-440); Red Blood Count 3.36 M/mm3 (3.65-5.03); Red Cell Distribution Width 19.1 % (13.2-15.2)
[2019-01-06 06:35] LABS: BUN/Creatinine Ratio 13; Blood Urea Nitrogen 8 mg/dL (9-20); Calcium 8.2 mg/dL (8.4-10.2); Hemolysis Index 225
[2019-01-06] MEDS: MIRALAX 3350 PO SCH (09:22)
[2019-01-06] MEDS: LASIX PO SCH (09:22)
[2019-01-06] MEDS: ELIQUIS PO SCH ×2 (09:28→22:03)
[2019-01-06] MEDS: PROTONIX PO SCH (09:29)
[2019-01-06] MEDS: VITAMIN C PO SCH (09:30)
[2019-01-06] MEDS: Renal Caps PO SCH (09:31)
[2019-01-06] MEDS: CORDARONE PO SCH (09:31)
[2019-01-06] MEDS: COREG PO SCH ×2 (09:35→22:03)
[2019-01-06] MEDS: SODIUM CHLORIDE FLUSH SYRINGE 10 ML IV SCH ×2 (09:40→22:04)
[2019-01-06] MEDS: NORVASC PO SCH (09:44)
[2019-01-06] MEDS: ZESTRIL PO SCH (09:45)
[2019-01-06] MEDS ORDERED: ALDACTONE PO SCH (10:00)
[2019-01-06] MEDS: TYLENOL PO PRN (15:32)
--- NOTE | 2019-01-06 16:09 | Progress Note ---
Assessment and Plan Assessment and plan: 78 YO Male with HTN, Systolic CHF, DM, HLD, Bilateral Pulmonary Embolism on Therapeutic Anticoagulation with Eliquis, Chronic Respiratory Failure on Home Oxygen presents to ED for evaluation. Pt reports that he went to his PCP for a routine visit and was found to be hypotensive with SBP in the 80's. Pt transported to [facility] via private vehicle. Pt seen and evaluated in ED and found to have Heme Positive stool, as well as symptoms consistent with lower GI bleeding. Pt denies any symptoms. Pt admitted to telemetry and initiated on CHF protocol. Cardiology consulted in ED. Pt denies fever, chills, hemoptysis, BRBPR, Unintentional weight loss, night sweats, seizure, vertigo, loss of bowel/bladder continence. Prior admission on 12/08/18 reviewed. All listed medication reconciled at time of admission. (1) GI bleed - GI consulted and recommend no intervention - H&H stable - Avoid NSAIDs (2) Chronic respiratory failure Supplemental oxygen, nebulizer therapy, pulse oximetry, NIPPV as clinically indicated. (3) COPD (chronic obstructive pulmonary disease) Supplemental oxygen, nebulizer therapy, supportive care. (4) Diabetes ADA diet, insulin, accucheck, hypoglycemia protocol (5) Hyperlipidemia balanced diet, low cholesterol diet, statin therapy as indicated (6) Hypotension - it is on the lowside of normal - Avoid BP meds and monitor (7) DVT prophylaxis : SCD to BLE while in bed, hold anticoagulation secondary to GI bleeding Disposition; patient is unsteady and need PT/OT evaluation. History Interval history: patient was seen and evaluated this morning, patient was unsteady. Patient is on [place] oxygen. Hospitalist Physical - Physical exam Narrative exam: Not in cardiopulmonary distress. The patient appeared well nourished and normally developed. Vital signs as documented. Head exam is unremarkable. No scleral icterus . Neck is without jugular venous distension, thyromegaly, or carotid bruits. Lungs are clear to auscultation. Cardiac exam reveals regular rate and Rhythm. First and second heart sounds normal. No murmurs, rubs or gallops. Abdominal exam reveals normal bowel sounds, no masses, no organomegaly and no aortic enlargement. Extremities are nonedematous and both femoral and pedal pulses are normal. 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 No focal weakness. - Constitutional Vitals: Temp Pulse Resp BP Pulse Ox 97.8 F 83 18 108/52 94 01/06/19 13:25 01/06/19 13:25 01/06/19 13:25 01/06/19 13:25 01/06/19 13:25 General appearance: Present: mild distress, well-nourished Results - Labs CBC & Chem 7: 01/06/19 05:24 01/06/19 05:24 Labs: Laboratory Last Values WBC 9.2 K/mm3 (4.5-11.0) 01/06/19 05:24 RBC 3.36 M/mm3 (3.65-5.03) L 01/06/19 05:24 Hgb 9.6 gm/dl (11.8-15.2) L 01/06/19 05:24 Hct 28.7 % (35.5-45.6) L 01/06/19 05:24 MCV 86 fl (84-94) 01/06/19 05:24 MCH 29 pg (28-32) 01/06/19 05:24 MCHC 33 % (32-34) 01/06/19 05:24 RDW 19.1 % (13.2-15.2) H 01/06/19 05:24 Plt Count 200 K/mm3 (140-440) 01/06/19 05:24 Lymph % (Auto) 13.7 % (13.4-35.0) 01/06/19 05:24 [place] % (Auto) 10.1 % (0.0-7.3) H 01/06/19 05:24 Eos % (Auto) 5.4 % (0.0-4.3) H 01/06/19 05:24 Baso % (Auto) 0.7 % (0.0-1.8) 01/06/19 05:24 Lymph # 1.3 K/mm3 (1.2-5.4) 01/06/19 05:24 [place] # 0.9 K/mm3 (0.0-0.8) H 01/06/19 05:24 Eos # 0.5 K/mm3 (0.0-0.4) H 01/06/19 05:24 Baso # 0.1 K/mm3 (0.0-0.1) 01/06/19 05:24 Seg Neutrophils % 70.1 % (40.0-70.0) H 01/06/19 05:24 Seg Neutrophils # 6.5 K/mm3 (1.8-7.7) 01/06/19 05:24 PT 16.1 Sec. (12.2-14.9) H 01/04/19 12:27 INR 1.33 (0.87-1.13) H 01/04/19 12:27 APTT 26.5 Sec. (24.2-36.6) 01/04/19 12:27 Sodium 130 mmol/L (137-145) L 01/06/19 05:24 Potassium 5.2 mmol/L (3.6-5.0) H 01/06/19 05:24 Chloride 92.4 mmol/L (98-107) L 01/06/19 05:24 Carbon Dioxide 25 mmol/L (22-30) 01/06/19 05:24 18 mmol/L 01/06/19 05:24 BUN 8 mg/dL (9-20) L 01/06/19 05:24 0.6 mg/dL (0.8-1.5) L 01/06/19 05:24 Estimated GFR > 60 ml/min 01/06/19 05:24 13 % 01/06/19 05:24 Glucose 110 mg/dL (75-100) H 01/06/19 05:24 POC Glucose 198 (70-105) H 01/06/19 11:30 6.1 % (4-6) H 01/05/19 11:14 Lactic Acid 1.30 mmol/L (0.7-2.0) 01/04/19 14:07 Calcium 8.2 mg/dL (8.4-10.2) L 01/06/19 05:24 Magnesium 2.20 mg/dL (1.7-2.3) 01/04/19 12:27 28 units/L (55-170) L 01/04/19 12:27 < 0.010 ng/mL (0.00-0.029) 01/04/19 12:27 NT-Pro-B Natriuret Pep 340.7 pg/mL (0-900) 01/04/19 12:27 Yellow (Yellow) 01/05/19 16:05 Clear (Clear) 01/05/19 16:05 6.0 (5.0-7.0) 01/05/19 16:05 Ur Specific [place] 1.008 (1.003-1.030) 01/05/19 16:05 <15 mg/dl mg/dL (Negative) 01/05/19 16:05 Neg mg/dL (Negative) 01/05/19 16:05 Neg mg/dL (Negative) 01/05/19 16:05 Sm (Negative) 01/05/19 16:05 Neg (Negative) 01/05/19 16:05 Neg (Negative) 01/05/19 16:05 < 2.0 mg/dL (<2.0) 01/05/19 16:05 Ur Leukocyte Esterase Neg (Negative) 01/05/19 16:05 < 1.0 /HPF (0.0-6.0) 01/05/19 16:05 2.0 /HPF (0.0-6.0) 01/05/19 16:05 Few /HPF 01/05/19 16:05 Blood Type A POSITIVE 01/04/19 14:07 Antibody Screen Negative 01/04/19 14:07 Active Medications - Current Medications Current Medications: Generic Name Dose Route Start Last Admin Trade Name Freq PRN Reason Stop Dose Admin Acetaminophen 650 mg 01/04/19 15:17 01/06/19 15:32 Tylenol PO 650 mg Q4H PRN Administration Pain MILD(1-3)/Fever >100.5/[place] Albuterol 2.5 mg 01/04/19 15:17 Proventil IH Q4HRT PRN Shortness Of Breath Amiodarone HCl 200 mg 01/05/19 10:00 01/06/19 09:31 Cordarone PO 200 mg DAILY DEIDRA Administration Amlodipine Besylate 5 mg 01/05/19 10:00 01/06/19 09:44 Norvasc PO Not Given QDAY DEIDRA Apixaban 5 mg 01/04/19 22:00 01/06/19 09:28 Eliquis PO 5 mg Q12HR DEIDRA Administration Protocol Ascorbic Acid 500 mg 01/05/19 10:00 01/06/19 09:30 Vitamin C PO 500 mg QDAY DEIDRA Administration Carvedilol 12.5 mg 01/04/19 22:00 01/06/19 09:35 Coreg PO 12.5 mg BID DEIDRA Administration Dextrose 50 ml 01/05/19 14:12 D50w (25gm) Syringe IV PRN PRN Hypoglycemia Furosemide 20 mg 01/05/19 10:00 01/06/19 09:22 Lasix PO 20 mg QDAY DEIDRA Administration Insulin Human Lispro 0 unit 01/05/19 22:00 01/05/19 22:53 Humalog SUB-Q 3 unit QHS DEIDRA Administration Protocol Lisinopril 10 mg 01/05/19 10:00 01/06/19 09:45 Zestril PO Not Given QDAY DEIDRA Multivit/Ca Carb/B Cmplx/FA/Prenat 1 cap 01/05/19 10:00 01/06/19 09:31 Renal Caps PO 1 cap QDAY DEIDRA Administration Ondansetron HCl 4 mg 01/04/19 15:17 Zofran IV Q8H PRN Nausea And Vomiting Pantoprazole Sodium 40 mg 01/05/19 11:00 01/06/19 09:29 Protonix PO 40 mg QDAY DEIDRA Administration Polyethylene Glycol 17 gm 01/05/19 10:00 01/06/19 09:22 Miralax 3350 PO 17 gm QDAY DEIDRA Administration Pravastatin Sodium 10 mg 01/04/19 22:00 01/05/19 22:53 Pravachol PO 10 mg QHS DEIDRA Administration Sodium Chloride 10 ml 01/04/19 22:00 01/06/19 09:40 Sodium Chloride Flush Syringe 10 Ml IV 10 ml BID DEIDRA Administration Sodium Chloride 10 ml 01/04/19 15:17 Sodium Chloride Flush Syringe 10 Ml IV PRN PRN LINE FLUSH Spironolactone 25 mg 01/06/19 10:00 Aldactone PO QDAY DEIDRA
[2019-01-06] MEDS: PRAVACHOL PO SCH (22:03)
[2019-01-06] MEDS: HumaLOG SUB-Q SCH (23:21)
[2019-01-07 05:51] LABS: Hemoglobin 10.2 gm/dl (11.8-15.2)
[2019-01-07] MEDS: MIRALAX 3350 PO SCH (10:05)
[2019-01-07] MEDS: Renal Caps PO SCH (10:11)
[2019-01-07] MEDS: PROTONIX PO SCH (10:11)
[2019-01-07] MEDS: ELIQUIS PO SCH (10:13)
[2019-01-07] MEDS: CORDARONE PO SCH (10:13)
[2019-01-07] MEDS: LASIX PO SCH (10:13)
[2019-01-07] MEDS: VITAMIN C PO SCH (10:13)
[2019-01-07] MEDS: SODIUM CHLORIDE FLUSH SYRINGE 10 ML IV SCH (10:18)
[2019-01-07] MEDS: NORVASC PO SCH (10:24)
[2019-01-07] MEDS: ZESTRIL PO SCH (10:25)
[2019-01-07] MEDS: COREG PO SCH (10:25)
[2019-01-07 12:07] LABS: BUN/Creatinine Ratio 10; Blood Urea Nitrogen 6 mg/dL (9-20); Calcium 8.7 mg/dL (8.4-10.2); Hemolysis Index 30
--- NOTE | 2019-01-07 12:38 | Discharge Summary ---
Providers - Providers Date of Admission: 01/04/19 15:17 Attending physician: DIPAK GANDHI MD 01/04/19 11:46 Consult to Physician [CONS] Urgent Comment: dr. baldwin has seen the patient/ darrell Consulting Provider: CAMRYN BARRETT Physician Instructions: Reason For Exam: lgib hx of hypotension 01/06/19 09:43 Physical Therapy Evaluation and Treat [CONS] Urgent Comment: Reason For Exam: Evaluation for safe return home Mode of Transport?: Walker Weight bearing status?: Full wt bearing Assistive devices?: Yes: Walker Primary care physician: DARRELL QUINONES Hospitalization Reason for admission: GI bleed, autonomic dysequilibrium Condition: Fair Hospital course: 78 YO Male with HTN, Systolic CHF, DM, HLD, Bilateral Pulmonary Embolism on Therapeutic Anticoagulation with Eliquis, Chronic Respiratory Failure on Home Oxygen presents to ED for evaluation. Pt reports that he went to his PCP for a routine visit and was found to be hypotensive with SBP in the 80's. Pt transported to [facility] via private vehicle. Pt seen and evaluated in ED and found to have Heme Positive stool, as well as symptoms consistent with lower GI bleeding. Pt denies any symptoms. Pt admitted to telemetry and initiated on CHF protocol. Cardiology consulted in ED. Pt denies fever, chills, hemoptysis, BRBPR, Unintentional weight loss, night sweats, seizure, vertigo, loss of bowel/bladder continence. Prior admission on 12/08/18 reviewed. All listed medication reconciled at time of admission. Patient was admitted to the floor and GI saw the patient and recommend no further w/u given the patient has stable H/H, no further bleeding, hypotension resolved. Patient has gait instability and evaluated by PT and recommended home health. patient is usig home oxygen. Discharged back home in a stable condition. Disposition: [id number] HOME UND[facility] Time spent for discharge: 32 minutes - Discharge Diagnoses (1) COPD (chronic obstructive pulmonary disease) Status: Acute Qualifiers: Chronic bronchitis type: mixed simple and mucopurulent (2) GI bleed Status: Acute Qualifiers: GI bleed type/associated pathology: angiodysplasia of stomach and duodenum Qualified Code(s): K31.811 - Angiodysplasia of stomach and duodenum with bleeding (3) Hypotension Status: Acute (4) General unsteadiness Status: Acute Core Measure Documentation - Palliative Care Palliative Care/ Comfort Measures: Not Applicable - Core Measures Any of the following diagnoses?: none Exam - Physical Exam Narrative exam: Not in cardiopulmonary distress. The patient appeared well nourished and normally developed. Vital signs as documented. Head exam is unremarkable. No scleral icterus . Neck is without jugular venous distension, thyromegaly, or carotid bruits. Lungs are clear to auscultation. Cardiac exam reveals regular rate and Rhythm. First and second heart sounds normal. No murmurs, rubs or gallops. Abdominal exam reveals normal bowel sounds, no masses, no organomegaly and no aortic enlargement. Extremities are nonedematous and both femoral and pedal pulses are normal. PATIENT ASSESSMENT COORDINATOR: Alert and oriented 3. No focal weakness. - Constitutional Vitals: Temp Pulse Resp BP Pulse Ox 98.3 F 84 20 130/62 97 01/07/19 10:44 01/07/19 10:25 01/07/19 10:00 01/07/19 10:25 01/07/19 10:00 Plan Activity: advance as tolerated Weight Bearing Status: Weight Bear as Tolerated Diet: low cholesterol Follow up with: PRIMARY CAREMD [Referring] - 3-5 Days SUNNI MACK MD [Staff Physician] - 7 Days Prescriptions: Pantoprazole [Protonix TAB] 40 mg PO QDAY #30 tablet
[2019-01-07 14:30] VITALS: BP 114/54
[2019-01-07] MEDS: TYLENOL PO PRN (16:20)
== END 2019-01-07 17:30 | disposition home health service (06) ==
LOC: ED 10:51 → 2B-ACE 15:17 → INTOOBSV 15:17 → 2B-ACE 15:55
PROVIDERS: ADMIT Internal Medicine; ATTEND Internal Medicine
DX: K92.2 Gastrointestinal hemorrhage, unspecified (principal); J96.11 Chronic respiratory failure with hypoxia; I11.0 Hypertensive heart disease with heart failure; I50.9 Heart failure, unspecified; J44.9 Chronic obstructive pulmonary disease, unspecified; E11.9 Type 2 diabetes mellitus without complications; E78.5 Hyperlipidemia, unspecified; R55 Syncope and collapse
CPT/HCPCS: 36415; 71045; 74176; 80048; 81001; 82140; 82271; 82550; 82962; 83036; 83735; 83880; 84484; 85014; 85018; 85025; 85610; 85730; 86850; 86900; 86901; 87040; 87086; 93005; 93010; 94760; 96360; 96372; 97162; 99285; A9270; G0378; J3246; J7050; J1815